=== PATIENT | male | born 1990 | race Caucasian/White ===

== ENCOUNTER 2019-07-23 13:52 | Emergency (ER) | payer MEDICARE, MEDICAID, SELFPAY ==
[2019-07-23 14:04] VITALS: BP 136/88; PULSE 61; RESP 20; TEMP 36.4; O2SAT 100
--- NOTE | 2019-07-23 14:30 | ED.GENADULT ---
HPI - General Adult General Chief complaint: Unspecified Stated complaint: needs dialysis Time Seen by Provider: 07/23/19 14:10 Source: patient Mode of arrival: ambulatory Limitations: no limitations History of Present Illness HPI narrative: The pt is a 29 y/o male who presents to the ED c/o needing dialysis. Pt recently moved here from [place], [place] on 07/21/2019. Pt states that he was recommended to Dr. Quezada. Pt states that his social organization professor recommended he go through the ER. Pt states that he last had his hemodialysis done last week at [facility], and is supposed to receive it Thursday, , and Thursday. Pt states that he was going to go to [facility] today, but they were closed. 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 Pt reports decreased urination that has been improved with Torsemide, but denies CP, SOB, N/V, fever, chills, palpitations, and confusion. 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 He notes that he takes Coreg for HTN. complaint: Needing Dialysis Onset (ago): unknown Associated symptoms: other (Decreased urination) Treatments prior to arrival: none Related Data Allergies Allergy/AdvReac Type Severity Reaction Status Date / Time No Known Allergies Allergy Unverified 04/29/11 02:56 Review of Systems Review of Systems: All systems reviewed & are unremarkable except as noted in HPI and below Constitutional: Constitutional: Denies chills and Denies fever(s) Cardiovascular: Cardiovascular: Denies chest pain and Denies palpitations Respiratory: Respiratory: Denies dyspnea Gastrointestinal: Gastrointestinal: Denies nausea and Denies vomiting Genitourinary: Genitourinary: Reports oliguria Neurologic: Denies confusion [facility] Past Medical History Medical History (Updated 07/23/19 @ 15:43 by Roberto Last MD) Ankle fracture, right Depression HTN (hypertension) Kidney failure Bruna syndrome Surgical History Surgical History (Updated 07/23/19 @ 15:15 by Giancarlo Fraser) History of kidney surgery Kidney biopsy History of open heart surgery Repair of a hole in his heart History of open reduction and internal fixation (ORIF) procedure Right ankle S/P dialysis catheter insertion Social History Social History (Updated 07/23/19 @ 15:12 by Giancarlo Fraser) Smoking status: Smoker, status unknown Comments [employer] Employee: Dr. Quezada Exam Narrative: Exam Narrative: GENERAL: Chronically ill-appearing, thin, and in no acute distress. HEAD: Normocephalic, atraumatic. ENT: Mucous membranes moist. CHEST: Clear to auscultation. No respiratory distress. Right Vascath. HEART: Regular rate and rhythm. Normal peripheral pulses. ABDOMEN: Soft, nontender, nondistended, left abdominal peritoneal catheter. EXTREMITIES: Normal range of motion. No edema. RIght hand smaller than left. NEURO: Alert and oriented x3. PSYCH: Normal mood and affect. Course Course Emergency Course: Unsuccessful original blood draw. Patient refusing to have nurse or cat scan technologist attempted repeat blood draw. Discussed that we require full evaluation of his blood work to determine whether patient needs emergent dialysis or not. Patient prefers to leave AGAINST MEDICAL ADVICE as he is frustrated with his situation of not being able to go to [facility] for dialysis or have blood obtained. He realizes that he is risking his life and that he could potentially from a fatal arrhythmia from elevated potassium, he could develop pulmonary edema/congestive heart failure from volume overload, or could suffer permanent disability from his failure to be fully treated/evaluated. Vital Signs Vital signs: Vital Signs Temperature 97.6 F 07/23/19 14:04 Pulse Rate 61 07/23/19 14:04 Respiratory Rate 20 07/23/19 14:04 Blood Pressure 136/88 07/23/19 14:04
--- NOTE | 2019-07-23 15:00 | PC.NURSE ---
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
--- NOTE | 2019-07-23 16:01 | PC.NURSE ---
This Rn went in to attempt to draw blood. Pt states I don't want to be stuck again, I don't understand why I need to have labs drawn. I just need dialysis. I explained we have to draw labs to see where his labs are before we dialyze him. Pt states he just wants to leave. made aware
== END 2019-07-23 15:48 | disposition left against medical advice (07) ==
LOC: ANHED 15:52
PROVIDERS: Emergency Provider Emergency Medicine
DX: I12.0 Hypertensive chronic kidney disease with stage 5 chronic kidney disease or end stage renal disease (principal); N18.6 End stage renal disease; Z99.2 Dependence on renal dialysis; Q79.8 Other congenital malformations of musculoskeletal system
CPT/HCPCS: 99281

== ENCOUNTER → 2019-07-25 12:44 | Outpatient (CLI) | payer MEDICARE, MEDICAID, SELFPAY ==
--- NOTE | ~2019-07-25 | XR_ITS ---
EXAMINATION: XR chest 2V EXAM DATE: 07/25/2019 13:08 INDICATION: TB screening. TECHNIQUE: Frontal and lateral projections of the chest obtained and reviewed. Comparison is made to prior examination from 03/22/2010. FINDINGS: Sternotomy wires. Right-sided Mcclellan catheter. The lungs are clear. There are no pleural effusions. The cardiomediastinal silhouette is within normal limits. There is no pneumothorax susp ected. The bones and soft tissues are unremarkable. IMPRESSION: No acute cardiopulmonary findings. Reviewed, dictated and finalized at location B.
== END ==
DX: Z11.1 Encounter for screening for respiratory tuberculosis (principal)
CPT/HCPCS: 71046

== ENCOUNTER → 2019-11-22 13:28 | Outpatient (CLI) | payer MEDICARE, MEDICAID, SELFPAY ==
--- NOTE | ~2019-11-22 | CT_ITS ---
EXAMINATION: CT abdomen pelvis wo con DATE: 11/22/2019 14:03 INDICATION: Abdominal pain and suprapubic swelling TECHNIQUE: Computed tomography (CT) of the abdomen and pelvis was performed without intravenous contr ast. The dose-length product (DLP) was 168.59 mGy-cm. Automated exposure control and iterative recons truction technique were employed. COMPARISON: None FINDINGS: The lung bases are clear. The heart size is normal. The liver, spleen, pancreas, gallbladde r, and adrenal glands are normal. Cysts of the kidneys measure up to 1.6 cm on the right. There are e mbolization coils in the right kidney. No pathologically enlarged abdominal or pelvic lymph nodes are identified. There is no free intraperitoneal gas or evidence of bowel obstruction. A peritoneal dial ysis catheter enters the left abdominal wall and coils in the pelvis. There is a small amount of pelv ic fluid adjacent to the catheter. No fluid tracks into the abdominal wall. No suprapubic swelling is identified. IMPRESSION: 1. No CT correlate for the patient's symptoms. Reviewed, dictated and finalized at location B.
== END ==
PROVIDERS: Visit Provider Internal Medicine Nephrology
DX: R10.9 Unspecified abdominal pain (principal)
CPT/HCPCS: 74176

== ENCOUNTER → 2021-03-27 16:25 | Outpatient (CLI) | payer MEDICARE, MEDICAID, SELFPAY ==
--- NOTE | ~2021-03-27 | XR_ITS ---
EXAMINATION: XR abdomen/kub 1V DATE: 03/27/2021 16:48 INDICATION: Poor renal function. Assess for peritoneal dialysis catheter placement and for stool lexi en. TECHNIQUE: A supine view of the abdomen on 2 radiographs was obtained. COMPARISON: CT dated 11/22/2019 FINDINGS: Left lower quadrant peritoneal dialysis catheter which extends caudally with distal loop coiled in th e central pelvis. Right renal embolization coils in the right upper quadrant. No dilated loops of gas -filled bowel to suggest obstruction. Small amount of scattered colonic gas and likely fluid along wi th small amount of distal colonic stool. Lung bases are clear. Bones are unremarkable. IMPRESSION: 1. Peritoneal dialysis catheter with tip coiled in the central pelvis. 2. Nonobstructive bowel gas pattern with small amount of distal colonic stool. Reviewed, dictated and finalized at location B. NEL SUPERVISOR
== END ==
PROVIDERS: Visit Provider Internal Medicine Nephrology
DX: T82.49XA Other complication of vascular dialysis catheter, initial encounter (principal)
CPT/HCPCS: 74018

== ENCOUNTER → 2021-06-29 08:51 | Outpatient (CLI) | payer MEDICARE, MEDICAID, SELFPAY ==
--- NOTE | ~2021-06-29 | XR_ITS ---
EXAMINATION: XR abdomen/kub 1V DATE: 06/29/2021 09:31 INDICATION: End-stage renal disease. TECHNIQUE: A supine view of the abdomen on 2 radiographs was obtained. COMPARISON: Abdomen radiographs 03/27/2021, CT abdomen and pelvis 11/22/2019 FINDINGS: There are no dilated loops of bowel. There are embolization coils in right kidney. There is a peritoneal dialysis catheter in expected position. Median sternotomy wires are noted. There is a c atheter tip in right atrium. IMPRESSION: 1. Normal bowel gas pattern. Reviewed, dictated and finalized at location A. ERTY CLAIMS ADJUSTER
== END ==
PROVIDERS: Visit Provider Internal Medicine Nephrology
DX: N18.6 End stage renal disease (principal)
CPT/HCPCS: 74018

== ENCOUNTER 2022-10-08 11:47 | Outpatient (CLI) | payer MEDICARE, MEDICAID, SELFPAY ==
--- NOTE | ~2022-10-08 | XR_ITS ---
Left ankle Technique: AP and lateral views were obtained. Clinical History: Pain Findings: No acute fracture or dislocation is seen. Osseous alignment is anatomic. Ankle mortise and other visualized joint spaces are preserved. Soft tissues are otherwise unremarkable. Impression: Unremarkable left ankle. Reviewed, dictated and finalized at location . Impression: Unremarkable left ankle.
--- NOTE | ~2022-10-08 | US_ITS ---
EXAMINATION: US venous doppler [facility] DATE: 10/08/2022 12:29 INDICATION: Left lower limb pain TECHNIQUE: Grayscale ultrasound images without and with compression and Doppler ultrasound images of the left lower extremity veins were obtained. COMPARISON: None. FINDINGS: The visualized portions of left common femoral vein, profunda (deep) femoral vein, femoral vein, popl iteal vein, peroneal veins, posterior tibial veins, gastrocnemius vein and greater saphenous vein out flow are patent. 3.9 x 2.4 x 1.0 cm anechoic Taylor's cyst at the left popliteal fossa. There is a sec ond more caudal 3 x 3 x 1.2 cm lenticular hypoechoic lesion along the superficial muscular fascia whi ch is without evident internal vascular flow on color Doppler but also without definitive posterior a coustic enhancement and is unclear whether this is a solid or complex cystic lesion. IMPRESSION: 1. No deep venous thrombosis in the left lower limb. 2. 3 x 3 x 1.2 cm lenticular hypoechoic lesion along the inferior margin of a 3.9 x 2.4 x 1.0 cm anec hoic Taylor's cyst. Differential would include synovitis within a loculated component of the Taylor's c yst a separate complex fluid collection including hematoma or abscess in the appropriate clinical set ting or potentially a solid neoplasm such as schwannoma or peripheral nerve sheath tumor. Consider fu rther evaluation with pre and postcontrast MRI. Reviewed, dictated and finalized at location A. IMPRESSION: 1. No deep venous thrombosis in the left lower limb. 2. 3 x 3 x 1.2 cm lenticular hypoechoic lesion along the inferior margin of a 3 .9 x 2.4 x 1.0 cm anechoic Taylor's cyst. Differential would include synovitis w ithin a loculated component of the Taylor's cyst a separate complex fluid collec tion including hematoma or abscess in the appropriate clinical setting or poten tially a solid neoplasm such as schwannoma or peripheral nerve sheath tumor. Co nsider further evaluation with pre and postcontrast MRI.
--- NOTE | ~2022-10-08 | XR_ITS ---
Right foot Technique: AP and lateral views were obtained. Clinical History: Pain Findings: There is a transverse fracture through the midshaft of the fourth proximal phalanx. No othe r fracture or dislocation seen. Joint spaces are preserved without erosive or degenerative change. So ft tissues are unremarkable. Impression: Transverse, minimally displaced fracture of the midshaft of the fourth proximal phalanx. Reviewed, dictated and finalized at location M. Impression: Transverse, minimally displaced fracture of the midshaft of the fourth proximal phalanx.
== END 2022-10-08 11:48 | disposition home or self-care (01) ==
LOC: ANHIMG 11:56
PROVIDERS: PCP Emergency Medicine; Visit Provider Emergency Medicine
DX: M79.662 Pain in left lower leg (principal); I82.409 Acute embolism and thrombosis of unspecified deep veins of unspecified lower extremity; M79.671 Pain in right foot; M25.572 Pain in left ankle and joints of left foot; S92.511A Displaced fracture of proximal phalanx of right lesser toe(s), initial encounter for closed fracture; X58.XXXA Exposure to other specified factors, initial encounter
CPT/HCPCS: 73600; 73620; 93971

== ENCOUNTER 2022-10-13 14:39 | Outpatient (CLI) | payer MEDICARE, MEDICAID, SELFPAY ==
--- NOTE | ~2022-10-13 | MR_ITS ---
MRI of the left femur and left tib-fib CLINICAL HISTORY: Mass TECHNIQUE: Sagittal T1-weighted and STIR images, coronal T1-weighted and STIR images, and axial T1-we ighted, T1 fat-sat, and STIR images were acquired through the right calf. Sagittal T1-weighted and ST IR images, coronal T1-weighted and STIR images, and axial T1-weighted, STIR, T1 fat-sat images were a cquired through the left femur. Following intravenous administration of 10 cc MultiHance gadolinium, T1-weighted fat-sat imaging of the left femur and the left tib-fib was performed in the axial and cor onal planes. COMPARISON: Ultrasound dated 10/08/2022 Left calf findings: Bone marrow signals are unremarkable. No fracture, marrow edema, or osteomyelitis . Joint spaces of the ankle and knee are grossly intact. There is a 2.7 x 1.7 x 9.0 cm roughly ovoid mass at the medial aspect of the proximal calf, probably within the subcutaneous soft tissues and exerting mass effect upon the medial head of the gastrocnemi us muscle. Lesion is T1 hyperintense, heterogeneously hyperintense on T2 fat-sat sequences, and is wi thout significant postcontrast enhancement. There is extensive edematous change of the medial gastrocnemius muscle belly, with minimal edema of t he lateral gastrocnemius muscle belly. Remaining musculature in the calf essentially unremarkable. Th ere is mild diffuse subcutaneous soft tissue edema in the calf. Left femur findings: Bone marrow signals are unremarkable. No fracture, edema, or evidence for osteit is. Joint spaces of the left hip and left knee are grossly intact. No joint effusion evident. There is minimal amorphous edema scattered throughout the thigh musculature, without evidence of foca l tear or mass lesion. Visualized tendons are grossly intact. There is mild subcutaneous soft tissue edema throughout the thigh, without focal fluid collection. No abnormal postcontrast enhancement identified. IMPRESSION: 2.7 x 1.7 x 9.0 cm ovoid mass in the superficial soft tissues at the proximal, medial left calf, as d etailed above. Imaging characteristics are most consistent with hematoma. Extensive edematous change of the medial gastrocnemius muscle, with much more minimal amorphous edema of the lateral gastrocnemius muscle and thigh musculature. Findings could reflect posttraumatic musc le strain/contusion versus other inflammatory/reactive myositis. Correlate clinically. Extensive subcutaneous soft tissue edema, nonspecific. No abscess evident. No osseous or articular abnormality evident. Reviewed, dictated and finalized at location M. IMPRESSION: 2.7 x 1.7 x 9.0 cm ovoid mass in the superficial soft tissues at the proximal, medial left calf, as detailed above. Imaging characteristics are most consisten t with hematoma. Extensive edematous change of the medial gastrocnemius muscle, with much more m inimal amorphous edema of the lateral gastrocnemius muscle and thigh musculatur e. Findings could reflect posttraumatic muscle strain/contusion versus other in flammatory/reactive myositis. Correlate clinically. Extensive subcutaneous soft tissue edema, nonspecific. No abscess evident. No osseous or articular abnormality evident.
== END 2022-10-13 14:40 | disposition home or self-care (01) ==
PROVIDERS: PCP Emergency Medicine; Visit Provider Emergency Medicine
DX: M71.20 Synovial cyst of popliteal space [Baker], unspecified knee (principal)
CPT/HCPCS: 73720; A9577

== ENCOUNTER 2024-02-14 16:31 | Emergency (ER) | payer MEDICARE, MEDICAID, SELFPAY ==
[2024-02-14 16:36] VITALS: BP 144/85; PULSE 68; RESP 20; TEMP 37.5; O2SAT 99
--- NOTE | 2024-02-14 17:50 | ED_ITS ---
HPI - Wound/Laceration General Chief Complaint: Wound/Laceration Stated Complaint: Left Side Facial Wound/Swelling Source: patient, RN notes reviewed and old records reviewed Mode of arrival: ambulatory Limitations: no limitations History of Present Illness HPI narrative: Patient presents with complaints of open pustule to the left side of the face and associated swelling. He denies any injury or trauma. He reports that symptoms have been present for 3 days, worsening. He denies any fever, chills, sweats. No other concerns today Related Data Home Medications Medication Instructions Recorded Confirmed acetaminophen 500 mg tablet 500 mg PO Q6H PRN Pain 10/16/22 02/14/24 calcitriol 0.5 mcg capsule 0.5 mcg PO 3XW 10/16/22 02/14/24 carvedilol 25 mg tablet 25 mg PO BID 10/16/22 02/14/24 cholecalciferol (vitamin D3) 50 50 mcg PO DAILY 10/16/22 02/14/24 mcg (2,000 unit) capsule epoetin beta, methoxy peg 100 100 mcg subcut .2 times a month 10/16/22 02/14/24 mcg/0.3 mL injection syringe (Mircera) heparin (porcine) 1,000 unit/mL 600 unit IV .every dialysis 10/16/22 02/14/24 injection solution heparin (porcine) 5,000 unit/mL 1,600 unit IV .every dialysis 10/16/22 02/14/24 injection solution iron sucrose 50 mg iron/2.5 mL 50 mg IV WEEKLY 10/16/22 02/14/24 intravenous solution (Venofer) lactulose 10 gram/15 mL oral 10 g PO DAILY 10/16/22 02/14/24 solution melatonin 5 mg capsule 5 mg PO QHS 10/16/22 02/14/24 minoxidil 2.5 mg tablet 2.5 mg PO BID 10/16/22 02/14/24 mirtazapine 30 mg tablet 30 mg PO QHS 10/16/22 02/14/24 ondansetron HCl 4 mg tablet 4 mg PO Q4H PRN Nausea 10/16/22 02/14/24 polyethylene glycol 3350 17 17 g PO DAILY PRN Nausea 10/16/22 02/14/24 gram/dose oral powder sennosides 8.6 mg-docusate sodium 1 tab-cap PO DAILY 10/16/22 02/14/24 50 mg tablet (Senexon-S) sertraline 100 mg tablet 100 mg PO DAILY 10/16/22 02/14/24 sodium zirconium cyclosilicate 10 10 g PO DAILY 10/16/22 02/14/24 gram oral powder packet (Lokelma) sucroferric oxyhydroxide 500 mg 1,000 mg PO TID 10/16/22 02/14/24 chewable tablet (Velphoro) trazodone 50 mg tablet 50 mg PO HS 02/14/24 02/14/24 Allergies Allergy/AdvReac Type Severity Reaction Status Date / Time No Known Allergies Allergy Verified 02/14/24 17:07 Review of Systems Review of Systems: All systems reviewed & are unremarkable except as noted in HPI and below Constitutional: Constitutional: Reports no additional constitutional complaint s ENT: Reports system reviewed and no additional complaints, except as documented Cardiovascular: Cardiovascular: Reports no additional cardiovascular complaints Respiratory: Respiratory: Reports no additional respiratory complaints Gastrointestinal: Gastrointestinal: Reports no additional gastrointestinal complaints Integumentary/Breasts: Skin/Breast: Reports system reviewed and no additional complaints, except as docu and Reports as per HPI [facility] Past Medical History Medical History (Updated 02/15/24 @ 00:01 by Milagros Peterson) Ankle fracture, right Depression HTN (hypertension) Kidney failure [place] syndrome Surgical History Surgical History History of hand surgery (~1990) History of kidney surgery Kidney biopsy History of open heart surgery Repair of a hole in his heart History of open reduction and internal fixation (ORIF) procedure Right ankle S/P dialysis catheter insertion Family History Family History Father No problems noted. Mother No problems noted. Social History Social History Social History: 1 CUP OF CAFFEINE PER DAY Smoking packs per day: 1 Smoking cigarettes per day: 20.0 Years smoked: 10 Smoking pack-years: 10.00 Smoking status: Current every day smoker Alcohol intake: current Alcohol use details: Drinks once monthly Substance use: current Substance use type: marijuana Other substance usage details: use marijuana three times per week Lack of Transportation: No Lack of Food: Never True Current Housing: I Have Housing Concerned About Future Housing: No Difficulty Paying Gas/Electric Bills: No Difficulty Paying for Meds: No Currently Unemployed: No Education: High School Diploma/GED Difficulty w/ Childcare or Family Care: No Comments At the time of my signature, I reviewed and agree with the nursing past medical, surgical, social, and family history. There is no relevant family history pertinent to the patient complaint. Exam Const: General: cooperative, no acute distress, alert and awake Orientation/consciousness: oriented to person, oriented to place and oriented to time HENMT: Head: normal to inspection Resp: Effort & Inspection: normal respiratory effort and able to speak in complete sentences Auscultation: clear to auscultation bilaterally, no crackles, no rales, no rhonchi and no wheezes Cardio: Palpation: normal PMI Rate: regular rate Rhythm: regular rhythm Heart sounds: S1 normal heart sound present and S2 normal heart sound present Skin: Full body images: 1. Pustule with central opening, no active drainage. Approximately 1 cm diameter with some associated mild facial swelling Neuro: General: oriented to person, oriented to place and oriented to time Cranial nerves: Yes CN's II-XII intact bilaterally Psych: Appearance: grossly normal Thought process: Normal thought process present Insight: Good insight present (Psych) Judgement: Good judgement present (Psych) Course Course Level of Care: Express Care Visit Vital Signs Vital signs: Vital Signs Temperature 99.5 F 02/14/24 16:36 Pulse Rate 68 02/14/24 16:36 Respiratory Rate 20 02/14/24 16:36 Blood Pressure 144/85 H 02/14/24 16:36 Pulse Oximetry 99 02/14/24 16:36 Oxygen Delivery Room Air 02/14/24 16:36 Temperature 99.5 F 02/14/24 16:36 Pulse Rate 68 02/14/24 16:36 Respiratory Rate 20 02/14/24 16:36 Blood Pressure 144/85 H 02/14/24 16:36 Pulse Oximetry 99 02/14/24 16:36 Oxygen Delivery Room Air 02/14/24 16:36 Reviewed MDM - Wound/Laceration MDM Narrative Medical decision making narrative: Dialysis patient with have sessile left side of the face. No ocular involvement. Nontoxic appearing. Stable for discharge home on p.o. antibiotic. Follow with primary care provider. Emergency department for new or worse symptoms. Discharge instructions reviewed with patient, as well as provided in writing per nursing staff. The instructions also include specific and strict return/GO TO THE ER as well as f/u information. All questions have been answered, and the patient deny any further questions with discharge and discharge plan. Some parts of this dictation were generated by voice recognition software and may contain typographical and/or grammatical inaccuracies. Differential Diagnosis Differential diagnosis: Likely abscess and abrasion Medical Records Attestation: I reviewed the patient's medical records. Discharge Plan Discharge Clinical Impression: Abscess Patient Disposition: Home, Self-Care Condition: Stable Instructions: Antibiotic Form, Abscess (ED) Additional Instructions: Take all medications as prescribed. Warm soaks 3-4 times daily. Emergency department for new or worse symptoms, follow-up with primary care provider Patient Language: [place] Prescriptions: New clindamycin HCl 300 mg capsule 300 mg PO TID Qty: 30 0RF clindamycin HCl 300 mg capsule 300 mg PO TID Qty: 30 0RF No Action trazodone 50 mg tablet 50 mg PO HS carvedilol 25 mg tablet 25 mg PO BID Rx Instructions: must administer with a meal/food cholecalciferol (vitamin D3) 50 mcg (2,000 unit) capsule 50 mcg PO DAILY lactulose 10 gram/15 mL solution 10 g PO DAILY sertraline 100 mg tablet 100 mg PO DAILY Velphoro 500 mg tablet,chewable 1,000 mg PO TID acetaminophen 500 mg tablet 500 mg PO Q6H PRN (Reason: Pain) ondansetron HCl 4 mg tablet 4 mg PO Q4H PRN (Reason: Nausea) polyethylene glycol 3350 17 gram/dose powder 17 g PO DAILY PRN (Reason: Nausea) calcitriol 0.5 mcg capsule 0.5 mcg PO 3XW Rx Instructions: administer after dialysis on dialysis days Lokelma 10 gram powder in packet 10 g PO DAILY melatonin 5 mg capsule 5 mg PO QHS minoxidil 2.5 mg tablet 2.5 mg PO BID mirtazapine 30 mg tablet 30 mg PO QHS sennosides-docusate sodium [Senexon-S] 8.6-50 mg tablet 1 tab-cap PO DAILY Venofer 50 mg iron/2.5 mL solution 50 mg IV WEEKLY Rx Instructions: administer over 2-5 mins Mircera 100 mcg/0.3 mL syringe 100 mcg subcut .2 times a month heparin (porcine) 5,000 unit/mL solution 1,600 unit IV .every dialysis heparin (porcine) 1,000 unit/mL solution 600 unit IV .every dialysis Follow-up/Referrals: Galen Hunter MD [Primary Care Provider] -
== END 2024-02-14 18:25 | disposition home or self-care (01) ==
PROVIDERS: Emergency Provider Nurse Practitioner Family; PCP Emergency Medicine
DX: L02.01 Cutaneous abscess of face (principal); F17.210 Nicotine dependence, cigarettes, uncomplicated; F12.90 Cannabis use, unspecified, uncomplicated; I10 Essential (primary) hypertension; F32.A Depression, unspecified
CPT/HCPCS: 99213; G0463

== ENCOUNTER 2024-06-30 00:23 | Emergency (ER) | payer MEDICARE, MEDICAID, SELFPAY ==
--- NOTE | ~2024-06-30 | XR_ITS ---
Clinical Indication: Shortness of breath PA and lateral views of the chest: Comparison: 07/25/2019 Findings: The lungs are clear, without evidence of focal consolidation or pleural effusion. Cardiome diastinal silhouette is enlarged, status post median sternotomy. Bones and soft tissues are unremarka ble. Impression: Clear lungs. Cardiomegaly, status post median sternotomy. Correlate with clinical history. Reviewed, dictated and finalized at location M. Impression: Clear lungs. Cardiomegaly, status post median sternotomy. Correlate with clinical history.
[2024-06-30 00:25] VITALS: BP 190/107; PULSE 64; RESP 16; TEMP 36.6; O2SAT 98
--- NOTE | 2024-06-30 00:25 | ECG_ITS ---
Test Date: 2024-06-30 00:30:28 Measurements Intervals [place] Rate: 59 P: 44 FL: 111 QRS: 53 QRSD: 116 T: 111 QT: 420 QTc: 416 Interpretive Statements SINUS BRADYCARDIA WITH SHORT FL INTERVAL INDETERMINATE AXIS INCOMPLETE RIGHT BUNDLE BRANCH BLOCK [90+ ms QRS DURATION, TERMINAL R IN V1/V2, 40+ ms S IN I/aVL/V4/V5/V6] LEFT VENTRICULAR HYPERTROPHY AND ST-T CHANGE [VOLTAGE CRITERIA PLUS ST/T ABNORMALITY] No previous ECG available for comparison Electronically Signed On 07-01-2024 16:33:32 CDT by Patricia Chaney M.D.
--- OUTSIDE RECORDS SUMMARY | 2024-06-30 00:26 | XMS_ITS | Encounter Summary ---
Author Organization [facility] Address [address] [place] [address] Care Team Providers Care Immigration Attorney Name Role Phone Bernadette Robertson MD Primary Care Provider [phone] Bernadette Robertson MD Primary Care Provider [phone] Encounter Details Date Type Department Care Team (Late st Contact Info) Description 03/01/2021 Telephone [facility] [address] [place] [address] Cr Titus MD [address] [phone] Social History Tobacco Use Types Packs/Day Years Used Date Smoking Tobacco: Former Cigarettes 0.5 10 0 01/13/2011 - 01/13/2021 Smokeless Tobacco: Never Alcohol Use Standard Drinks/Week Comments Not Currently 0 (1 standard drink = 0.6 oz pur e alcohol) PHQ-2 Answer Date Recorded PHQ2 TOTAL SCORE 0 02/07/2021 Sex and Gender Information Value Date Recorded Sex Assigned at Not on file Gender Identity Not on file Sexual Orientation Not on file documented as of this encounter Functional Status Functional Status Response Date of Assess ment Is person deaf or have serious hearing difficult y? No 02/25/2021 Is person blind or have serious difficulty seein g? No 02/25/2021 Does person have serious dif ficulty walking/climbing stairs? No 02/25/2021 Does person have difficulty dressing/bathing? No 02/25/2021 Does person have difficulty doing errands alone? No 02/25/2021 Cognitive Status Response Date of Assessm ent Does person have difficulty concentrating/remembering/making decisions? No 02/25/2021 documented as of this encounter Plan of Treatment Not on file documented as of this encounter Visit Diagnoses Not on filedocumented in this encounter Care Teams Immigration Attorney Relationship Specialty Start Date End Date Bernadette Robertson MD [address] [place] [place] [address] PCP - General 07/02/20 03/04/21 Bernadette Robertson MD [address] [place] [address] PCP - General 11/07/21 documented as of this encounter
--- OUTSIDE RECORDS SUMMARY | 2024-06-30 00:26 | XMS_ITS | Encounter Summary ---
Author Organization [facility] Address [address] [place] [address] Care Team Providers Care Customer Retention Representative Name Role Phone Bernadette Robertson MD Primary Care Provider [phone] Bernadette Robertson MD Primary Care Provider [phone] Encounter Details Date Type Department Care Team (Late st Contact Info) Description 02/28/2021 Telephone [facility] [address] [place] [address] Cr Titus MD [address] [phone] Social History Tobacco Use Types Packs/Day Years [...] on filedocumented in this encounter Care Teams Customer Retention Representative Relationship Specialty Start Date End Date Bernadette Robertson MD [address] [facility] [place] [address] PCP - General 07/02/20 03/04/21 Bernadette Robertson MD [address] [facility] [place] [address] PCP - General 11/07/21 documented as of this encounter
--- OUTSIDE RECORDS SUMMARY | 2024-06-30 00:26 | XMS_ITS ---
Author Organization [facility] [email or web address] Address [address] [place] [address] Care Team Providers Care Studio Coordinator Name Role Phone Galen Hunter MD Primary Care Provider Unavail Tash Saucedo Unavailable [phone] Allergies No Known Allergies Medications Medication SIG (Take, Route, Frequency, Duration) Notes Start Date End Date Status Sertraline HCl 100 MG 1 tablet Oral Once a day for 90 days Active traZODone HCl 50 MG 1 tablet at bedtime Oral at bedtime for 90 days Active Mirtazapine 45 MG 1 tablet at bedtime Oral Once a day for 90 days Active Lisinopril 40 MG Oral 07/10/2023 No t-Taking traZODone HCl 50 MG 1 tablet at bedtime Oral at bedtime for 90 days Active Minoxidil 2.5 mg Oral 07/10/2023 Ac tive Lisinopril 20 MG Oral 07/10/2023 Ac tive Velphoro 500 mg Oral 07/10/2023 Act jammie Sevelamer Carbonate 2.4 gram Oral *Pick strength-form from [facility] for eRX* 07/10/2023 Active Mirtazapine 45 MG TAKE 1 TABLET BY MOUTH AT BEDTIME FOR 90 DAYS for 90 Active Lactulose 10 GM/15ML Oral 07/10/2023 Active Famotidine 20 MG Oral 07/10/2023 Ac tive Carvedilol 25 MG Oral 07/10/2023 Ac tive amLODIPine Besylate 10 MG Oral 07/10/2023 Active Auryxia 210 mg iron Oral *Pick strength-form from [facility] for eRX* 07/10/2023 Active LOKELMA 10 GRAM ORAL POWDER PACKET *Reorder from [facility] for eRx and Interaction Alerts* 07/10/2023 Active Ondansetron HCl 4 MG Oral 07/10/2023 Active Social History Tobacco Use: Social History Observation Description Date Details (start date - stop date) Former Smoker NA - NA Sex Assigned At : Social History Observation Description Sex Assigned At Male Tobacco Control (Standard) Question Answer Notes Tobacco use: Former smoker Problems Problem Type SNOMED Code ICD Code Onset Dates Problem Status W/U Status Risk Notes Problem 13646648 Elevated blood pressure reading (R03.0) Active confirmed Vital Signs Blood pressure systolic 152 mm Hg 04/19/20 24 Blood pressure diastolic 84 mm Hg 024 Heart Rate 62 /min 04/19/2024 Height 64.00 in 04/19/2024 Weight 118.2 lbs 04/19/2024 BMI 20.29 kg/m2 04/19/2024 Height-cm 162.56 cm 04/19/2024 Weight-kg 53.61 kg 04/19/2024 Encounters Encounter Location Date Provider Diagnosis [facility] [address] [facility] [address] [place] [address] 04/19/2024 Tash Saucedo Generalized anxiety disorder F41.1 ; Major depressive disorder, recurrent, mild F33.0 ; Primary insomnia F51.01 ; Cannabis dependence, uncomplicated F12.20 ; Other skilled nursing (current) drug therapy Z79.899 and Elevated blood pressure reading R03.0 Assessments Encounter Date Diagnosis (ICD Code) Assessment Notes Treatment Notes Treatment Clinical Notes Section Notes 04/19/2024 Generalized anxiety disorder (ICD-10 - F41.1) Generalized Anxiety Disorder: Care Instructions material was published, Learning About Anxiety Disorders material was published 1. Mild recurrent major depression - Remeron 45 mg at night Sertraline 100 mg daily obtain labs recently done therapy refer to PAT patient would like to have kidney transplant in future- need 6 months therapy to qualify SSRI/SNRI side effects discussed including but not limited to, gastric upset, nausea, vomiting, diarrhea and/or constipation, weight changes, sexual side effects including loss of libido, increased suicidal thoughts/behavi ors in children and young adults, and serotonin syndrome. Prescription Monitoring Report reviewed educated on all medications, benefits, side effects and risk, and educated on depression, anxiety, and mood d/o and educated on compliance of medications, metabolic and movement d/o education appointment's, continue therapy discussion with patient about course of treatmentand patient instructions. education on serotonin syndrome 2. Generalized anxiety disorder -hx PCP prescribes Xanax 3. Primary insomnia - Melatonin 10 mg OTC- PRN educated on Melatonin Trazodone 50 mg at bedtime - educated on rx 04/19/2024 Major depressive disorder, recurrent, mild (ICD-10 - F33.0) Learning About Depression Screening material was published, Preventing Depression From Coming Back: Care Instructions material was published, Learning About Depression material was published, Seasonal Affective Disorder: Care Instructions material was published, Depression Treatment: Care Instructions material was published 1. Mild recurrent major depression - Remeron 45 mg at night Sertraline 100 mg daily obtain labs recently done therapy refer to PAT patient would like to have kidney transplant in future- need 6 months therapy to qualify SSRI/SNRI side effects discussed including but not limited to, gastric upset, nausea, vomiting, diarrhea and/or constipation, weight changes, sexual side effects including loss of libido, increased suicidal thoughts/behavi ors in children and young adults, and serotonin syndrome. Prescription Monitoring Report reviewed educated on all medications, benefits, side effects and risk, and educated on depression, anxiety, and mood d/o and educated on compliance of medications, metabolic and movement d/o education appointment's, continue therapy discussion with patient about course of treatmentand patient instructions. education on serotonin syndrome 2. Generalized anxiety disorder -hx PCP prescribes Xanax 3. Primary insomnia - Melatonin 10 mg OTC- PRN educated on Melatonin Trazodone 50 mg at bedtime - educated on rx 04/19/2024 Primary insomnia (ICD-10 - F51.01) Insomnia: Care Instructions material was published, Learning About Sleeping Well material was published 1. Mild recurrent major depression - Remeron 45 mg at night Sertraline 100 mg daily obtain labs recently done therapy refer to PAT patient would like to have kidney transplant in future- need 6 months therapy to qualify SSRI/SNRI side effects discussed including but not limited to, gastric upset, nausea, vomiting, diarrhea and/or constipation, weight changes, sexual side effects including loss of libido, increased suicidal thoughts/behavi ors in children and young adults, and serotonin syndrome. Prescription Monitoring Report reviewed educated on all medications, benefits, side effects and risk, and educated on depression, anxiety, and mood d/o and educated on compliance of medications, metabolic and movement d/o education appointment's, continue therapy discussion with patient about course of treatmentand patient instructions. education on serotonin syndrome 2. Generalized anxiety disorder -hx PCP prescribes Xanax 3. Primary insomnia - Melatonin 10 mg OTC- PRN educated on Melatonin Trazodone 50 mg at bedtime - educated on rx 04/19/2024 Cannabis dependence, uncomplicated (ICD-10 - F12.20) Learning About Cannabis Use Disorder material was published, Learning About Substance Use Disorder material was published, Substance Use Disorder: Care Instructions material was published, Marijuana Use: Care Instructions material was published, Codependency: Care Instructions material was published 1. Mild recurrent major depression - Remeron 45 mg at night Sertraline 100 mg daily obtain labs recently done therapy refer to PAT patient would like to have kidney transplant in future- need 6 months therapy to qualify SSRI/SNRI side effects discussed including but not limited to, gastric upset, nausea, vomiting, diarrhea and/or constipation, weight changes, sexual side effects including loss of libido, increased suicidal thoughts/behavi ors in children and young adults, and serotonin syndrome. Prescription Monitoring Report reviewed educated on all medications, benefits, side effects and risk, and educated on depression, anxiety, and mood d/o and educated on compliance of medications, metabolic and movement d/o education appointment's, continue therapy discussion with patient about course of treatmentand patient instructions. education on serotonin syndrome 2. Generalized anxiety disorder -hx PCP prescribes Xanax 3. Primary insomnia - Melatonin 10 mg OTC- PRN educated on Melatonin Trazodone 50 mg at bedtime - educated on rx 04/19/2024 Other skilled nursing (current) drug therapy (ICD-10 - Z79.899) Medication Refill: Care Instructions material was published 1. Mild recurrent major depression - Remeron 45 mg at night Sertraline 100 mg daily obtain labs recently done therapy refer to PAT patient would like to have kidney transplant in future- need 6 months therapy to qualify SSRI/SNRI side effects discussed including but not limited to, gastric upset, nausea, vomiting, diarrhea and/or constipation, weight changes, sexual side effects including loss of libido, increased suicidal thoughts/behavi ors in children and young adults, and serotonin syndrome. Prescription Monitoring Report reviewed educated on all medications, benefits, side effects and risk, and educated on depression, anxiety, and mood d/o and educated on compliance of medications, metabolic and movement d/o education appointment's, continue therapy discussion with patient about course of treatmentand patient instructions. education on serotonin syndrome 2. Generalized anxiety disorder -hx PCP prescribes Xanax 3. Primary insomnia - Melatonin 10 mg OTC- PRN educated on Melatonin Trazodone 50 mg at bedtime - educated on rx 04/19/2024 Elevated blood pressure reading (ICD-10 - R03.0) 1. Mild recurrent major depression - Remeron 45 mg at night Sertraline 100 mg daily obtain labs recently done therapy refer to PAT patient would like to have kidney transplant in future- need 6 months therapy to qualify SSRI/SNRI side effects discussed including but not limited to, gastric upset, nausea, vomiting, diarrhea and/or constipation, weight changes, sexual side effects including loss of libido, increased suicidal thoughts/behavi ors in children and young adults, and serotonin syndrome. Prescription Monitoring Report reviewed educated on all medications, benefits, side effects and risk, and educated on depression, anxiety, and mood d/o and educated on compliance of medications, metabolic and movement d/o education appointment's, continue therapy discussion with patient about course of treatmentand patient instructions. education on serotonin syndrome 2. Generalized anxiety disorder -hx PCP prescribes Xanax 3. Primary insomnia - Melatonin 10 mg OTC- PRN educated on Melatonin Trazodone 50 mg at bedtime - educated on rx Plan Of Treatment Medication Medication Name Sig Start Date Stop Date Notes Sertraline HCl 100 MG 1 tablet Oral Once a day for 90 days traZODone HCl 50 MG 1 tablet at bedtime Oral at bedtime for 90 days Mirtazapine 45 MG 1 tablet at bedtime Oral Once a day for 90 days Treatment Notes Assessment Notes Generalized anxiety disorder Generalized Anxiety Disorder: Care Instructions material was published, Learning About Anxiety Disorders material was published Major depressive disorder, recurrent, mi ld Learning About Depression Screening material was published, Preventing Depression From Coming Back: Care Instructions material was published, Learning About Depression material was published, Seasonal Affective Disorder: Care Instructions material was published, Depression Treatment: Care Instructions material was published Primary insomnia Insomnia: Care Instr uctions material was published, Learning About Sleeping Well material was published Cannabis dependence, uncomplicated Learn ing About Cannabis Use Disorder material was published, Learning About Substance Use Disorder material was published, Substance Use Disorder: Care Instructions material was published, Marijuana Use: Care Instructions material was published, Codependency: Care Instructions material was published Other skilled nursing (current) drug therapy M edication Refill: Care Instructions material was published Next Appt Details Follow Up: 3 Months, Reason: f/u rx Provider Name:Tash Sheryl , 07/11/2024 04:00:00 PM, [address], [facility] [address], [place], [address], Progress Notes * GOLDEN KIMOB:1990 (33 yo M)Acc No.[id number]:04/19/2024 Patient: CHANTEL BEE Provider: MATTHEW REYES :1990 A ge:33 Y S ex:Male Date:04/19/2024 Address:[address] [place] [address] Pcp:Galen Hunter MD Subjective: * Chief Complaints: * * HPI: D epression Screening: SUNNY-7 (2018 Edition) F eeling nervous, anxious, or on edge?Not at all, N ot being able to stop or control worrying N ot at all, W orrying too much about different things N ot at all, T rouble relaxing S everal days, B eing so restless that it is hard to sit still S everal days, B ecoming easily annoyed or irritable?Several days, F eeling afraid as if something awful might happen N ot at all, T otal SUNNY-7 Score 3 , I f you checked any problems, how difficult have they made it for you to do your work, take care of things at home, or get along with other people? S omewhat difficult,?Interpretation of Total ( 0 to 4) No Anxiety. D epression screening: PHQ-9 L ittle interest or pleasure in doing things S everal days, F eeling down, depressed, or hopeless S everal days, T rouble falling or staying asleep, or sleeping too much S everal days, F eeling tired or having little energy S everal days, P oor appetite or overeating S everal days, F eeling bad about yourself or that you are a failure, or have let yourself or your family down N ot at all, T rouble concentrating on things, such as reading the newspaper or watching television N ot at all, M oving or speaking so slowly that other people could have noticed; or the opposite, being so fidgety or restless that you have been moving around a lot more than usual N ot at all, T houghts that you would be better off or of hurting yourself in some way N ot at all, T otal Score 5, I nterpretation M ild Depression. I ntervention D epression Screening Findings?Positve, F ollow-Up for Depression M ental health treatment assessment, Patient follow-up to return when and if necessary, S uicide Risk Assessment Performed ,?Additional Evaluation for Depression P sychiatric interview and evaluation, N malik of the standardized tool used for adult depression screening: [facility] (PHQ-9).? H istory of Presenting Problem: :Follow up depression, anxiety, sleep chronic recurrent since last visit, report alright, I need psychiatric care for 6 months to be on transplant list and be re-evualated for kidney at [facility] and I failed a heart test once 2 year, ago and depression and anxiety been good I am not that depressed I have struggle with sleep I was sleeping well for a while and now I have nights I look forward bed and nice sleep envirnoment and last week been struggle to fall asleep and I am tired and when in bed I have hard time fall asleep and not over thinking, some of it hard to get comfortable, and I sleep good when I fall asleep and I sleep good days after diaylsis and do not need anything to help me sleep, I still struggle to sleep at diaylsis, and bright lights and noise there, currently no sad or down no hopeless or helpless, sometimes I feel sad not all the time and all situational, I lost contact with all friends with kidney thing over the years, I am little anxious and restless and fidgety, appetite good I am hungery and eat 2 meals, snacks, weight pretty good I am above weight now 120, no SI/HI, no plans or intent no passive thoughts, medications all doing good and combinations no s/e, B/P rx changed recently and helps, I take all rx at night to help me wind down and no psychosis no robert, and concentration and focus good as long as I slept and motivation and interest good, and energy good, and I have not got into therapy yet and kidney transplant require 6 months therapy to qualify I am willing to see a therapist, when kidney failure happen I fought not to and be healthy, more grateful and second change being alive. mom present plan to get on transplant list at [facility] I have a referral for kidney transplant list [place] [facility] and need to be in therapy no psychosis, no robert, no SI/HI dialysis currently three times a week left arm denies SI/HI no plans or intent no thoughts harm to self or others, Past attempts x 2 2011 OD, 2015, OD, FH none, psychiatric hospital none, no weapons in home ETOH rare STOPPED 2 years and 5 months ago SMOKING Quit in December 2020 LABS recently DRUGS cannabis Edibles - medical card 02/01/23 received caffeine non caffiene soda- and coffee - [facility]-stopped ASRS =36 Psychosis Reported by nahed sahu.Notes: hx auditory hallucinations may be induce by cannabis and will monitor - none present Suicide AssessmentReported by nahed sahu.Spectrum: # 2 of suicidal attempts; family history of suicide (0); previous hospitalization for psychiatric condition (0)Notes:denies SI/HI no plans or intent no thoughts harm to self or others, Past attempts x 2 2011 OD, 2015, OD, FH none, psychiatric hospital none, no weapons in home no self cutting or self harm RX HX Sertraline, Xanax, Remeron. * ROS: Nahed sahu reports d ifficulty hearing. He reports no shortness of breath when walking (steps) b ut reports no chest pain, occasional palpitations, and no known heart murmur; p ort left arm- dialysis. He reports no GERD no abdominal pain, no nausea, no vomiting, no constipation, normal appetite, and no diarrhea; d ialysis. He reports d ifficulty urinating; d ialysis produce minimal urine report less amount urine and reported small amount- kidney failure, may urinate 1x day. H e reports no muscle aches, no muscle weakness, no arthralgias/joint pain, no back pain, no swelling in the extremities, no neck pain, and no difficulty walking; hx cyst behind rt knee S kin:: t attoo rt forearm . He reports no loss of consciousness, no weakness, no numbness, no seizures, no dizziness, no migraines, no headaches, no tremor, no gait dysfunction, and no paralysis; h x migraines. He reports s leep disturbances, restless sleep, and mild anxiety b ut reports mild depression, no alcohol abuse, no hallucinations, no suicidal thoughts, no mood swings, no memory loss, and no agitation. H e reports f atigue. He reports no fever, no significant weight gain, and no significant weight loss. He reports no cough and no shortness of breath. * Medical History: P roblems: Cannabis dependence, Generalized anxiety disorder, Long-term drug therapy, Mild recurrent major depression, Primary insomnia, Severe recurrent major depression, Weight loss, ,. * Social History: T obacco Use: T obacco Control (Standard) T obacco use: F ormer smoker. M igrated Social History: M igrated Social History: Alcohol Intake: None 06/30/2022,Tobacco Years: Former smoker 06/05/2021,Smoking Status: 10 04/10/2023. D rug/Alcohol: D o you smoke marijuana?: Admits. Do you drink alcohol?: No. M iscellaneous: A dvance Care Planning A re you your own decision-maker Y es, D o you have Power of Carbon Capture Power Plant Engineer for Health or Medical? Y es, D o you have a power of graphic editor for health? Y es, D o you have power of graphic editor for Medical ? Y es, I f yes, then please bring the POA paperwork so that we can upload it. Y es. * Medications: T aking Ondansetron HCl 4 MG Tablet Oral , Taking LOKELMA 10 GRAM ORAL POWDER PACKET , Notes to Pharmacist: *Reorder from [facility] for eRx and Interaction Alerts*, Taking Auryxia 210 mg iron Tablet Oral , Notes to Pharmacist: *Pick strength-form from [facility] for eRX*, Taking amLODIPine Besylate 10 MG Tablet Oral , Taking Famotidine 20 MG Tablet Oral , Taking Lactulose 10 GM/15ML Solution Oral , Taking Carvedilol 25 MG Tablet Oral , Taking Sevelamer Carbonate 2.4 gram Packet Oral , Notes to Pharmacist: *Pick strength-form from [facility] for eRX*, Taking Velphoro 500 mg Tablet Chewable Oral , Taking Lisinopril 20 MG Tablet Oral , Taking Minoxidil 2.5 mg Tablet Oral , Taking Sertraline HCl 100 MG Tablet 1 tablet Oral Once a day , Taking Mirtazapine 45 MG Tablet TAKE 1 TABLET BY MOUTH AT BEDTIME FOR 90 DAYS , Taking traZODone HCl 50 MG Tablet 1 tablet at bedtime Oral at bedtime , Not-Taking Lisinopril 40 MG Tablet Oral , Medication List reviewed and reconciled with the patient * Allergies: N .K.D.A. Objective: * Vitals: B P:152/84mm Hg, HR:62/min, Wt:118.2lbs, Wt-k.61 kg, Ht: 64.00 in, Ht-cm: 162.56 cm, BMI:20.29Index, Body Surface Area: 1.55. * Examination: P sychiatry: Appearance: w ell-groomed, well-nourished, appears stated age, slender build. Abnormal body movements: n one. Affect / mood: a ppropriate, full range. Aggression: l ow. Anger control: g ood. Attention: g ood. Attitude: c ooperative. Homicidal ideation: n one. Suicidal ideation: n one. Memory status: n o impairment noted. Degree of awareness of surroundings: w ithin normal limits.? Delusions: n o. Hallucinations: n o. Impulse control: g ood. Insight: f air. Intellectual functioning: a verage. Comprehension - Intellectual function: a verage. Judgement: g ood. Orientation: a wake, alert and oriented x 3. Perceptual disorders: n o perceptual disorder noted. Psychomotor activity: w ithin normal range. Speech / language: c lear and coherent, appropriate pitch/modulation, normal rate, volume, and articulation (RVR), proper grammar used. Thought content: a ppropriate. Thought process: i ntact. Assessment: * Assessment: 1. M ajor depressive disorder, recurrent, mild - F33.0 (Primary) 2 . G eneralized anxiety disorder - F41.1 3 . P rimary insomnia - F51.01 4 . C annabis dependence, uncomplicated - F12.20 5 . O ther skilled nursing (current) drug therapy - Z79.899 6 . E levated blood pressure reading - R03.0 ? 1. Mild recurrent major depr ession - Remeron 45 mg at night Sertraline 100 mg daily obtain labs recently done therapy refer to PAT patient would like to have kidney transplant in future- need 6 months therapy to qualify SSRI/SNRI side effects discussed including but not limited to, gastric upset, nausea, vomiting, diarrhea and/or constipation, weight changes, sexual side effects including loss of libido, increased suicidal thoughts/behaviors in children and young adults, and serotonin syndrome. Prescription Monitoring Report reviewed educated on all medications, benefits, side effects and risk, and educated on depression, anxiety, and mood d/o and educated on compliance of medications, metabolic and movement d/o education appointment's, continue therapy discussion with patient about course of treatmentand patient instructions. education on serotonin syndrome 2. Generalized anxiety disorder -hx PCP prescribes Xanax 3. Primary insomnia - Melatonin 10 mg OTC- PRN educated on Melatonin Trazodone 50 mg at bedtime - educated on rx Plan: * Treatment: 2. G eneralized anxiety disorder Notes: Generalized Anxiety Disorder: Care Instructions material was published, Learning About Anxiety Disorders material was published 3. P rimary insomnia Refill traZODone HCl Tablet, 50 MG, 1 tablet at bedtime, Oral, at bedtime, 90 days, 90 Tablet, Refills 1. Notes: Insomnia: Care Instructions material was published, Learning About Sleeping Well material was published 4. C annabis dependence, uncomplicated Notes: Learning About Cannabis Use Disorder material was published, Learning About Substance Use Disorder material was published, Substance Use Disorder: Care Instructions material was published, Marijuana Use: Care Instructions material was published, Codependency: Care Instructions material was published 5. O ther skilled nursing (current) drug therapy Notes: Medication Refill: Care Instructions material was published * Procedure Codes: 9 6127 BEHAV ASSMT W/SCORE & DOCD/STAND INSTRUMENT, G2211 VISIT COMPLEXITY INHERENT TO ONGOING CARE RELATED TO A PATIENT'S SINGLE, SERIOUS CONDITION OR A COMPLEX CONDITION * Preventive Medicine: Counseling: B P Management: P RE-HYPERTENSIVE FOLLOW-UP PLAN: Karly hernandezup 2 weeks ____, L IFFABIAN RECOMMENDATION: L ifestyle education Recommended Nonpharmacologic Interventions (Lifestyle Modifications) -Weight ReductionA heart-healthy diet , such as Dietary Approaches to Stop Hypertension (DASH) Eating PlanDietary Sodium RestrictionIncreased Physical ActivityModeration in alcohol consumption, R EFERRAL TO ALTERNATIVE / PRIMARY CARE PROVIDER: R eferral to general physician educated on healthy b/p 120/80monitor b/p at homerefer to PCP, Urgent care/ERheart healthy diet and exciselimit salt intakelimit soda intake and caffieneincrease water. * Follow Up: 3 Months (Reason: f/u rx) * Billing Information: * Visit Code: 28532 OFFICE OUTPATIENT VISIT 25 MINUTES DETAILED HISTORY AND EXAM/MODERATE MEDICAL DECISION MAKING. * Procedure Codes: 29855 BEHAV ASSMT W/SCORE & DOCD/STAND INSTRUMENT. G2211 VISIT COMPLEXITY INHERENT TO ONGOING CARE RELATED TO A PATIENT'S SINGLE, SERIOUS CONDITION OR A COMPLEX CONDITION. * RIGGER Sign off status: Completed true * Provider: MATTHEW REYES Date: 1 Generated for Kevin rushing/Corina/Rjani on: 0 06/30/2024 12:26 AM CDT History and Physical Notes * HPI (History of Present Illness) Category Sub-Category Detail Notes Category Not es History of Presenting Problem :Follow up depression, anxiety, sleep chronic recurrent since last visit, report alright, I need psychiatric care for 6 months to be on transplant list and be re-evualated for kidney at [facility] and I failed a heart test once 2 year, ago and depression and anxiety been good I am not that depressed I have struggle with sleep I was sleeping well for a while and now I have nights I look forward bed and nice sleep envirnoment and last week been struggle to fall asleep and I am tired and when in bed I have hard time fall asleep and not over thinking, some of it hard to get comfortable, and I sleep good when I fall asleep and I sleep good days after diaylsis and do not need anything to help me sleep, I still struggle to sleep at diaylsis, and bright lights and noise there, currently no sad or down no hopeless or helpless, sometimes I feel sad not all the time and all situational, I lost contact with all friends with kidney thing over the years, I am little anxious and restless and fidgety, appetite good I am hungery and eat 2 meals, snacks, weight pretty good I am above weight now 120, no SI/HI, no plans or intent no passive thoughts, medications all doing good and combinations no s/e, B/P rx changed recently and helps, I take all rx at night to help me wind down and no psychosis no robert, and concentration and focus good as long as I slept and motivation and interest good, and energy good, and I have not got into therapy yet and kidney transplant require 6 months therapy to qualify I am willing to see a therapist, when kidney failure happen I fought not to and be healthy, more grateful and second change being alive. mom present plan to get on transplant list at [facility] I have a referral for kidney transplant list [facility] and need to be in therapy no psychosis, no robert, no SI/HI dialysis currently three times a week left arm denies SI/HI no plans or intent no thoughts harm to self or others, Past attempts x 2 2011 OD, 2015, OD, FH none, psychiatric hospital none, no weapons in home ETOH rare STOPPED 2 years and 5 months ago SMOKING Quit in December 2020 LABS recently DRUGS cannabis Edibles - medical card 02/01/23 received caffeine non caffiene soda- and coffee - [facility]-stopped ASRS =36 Psychosis Reported by patient.Notes: hx auditory hallucinations may be induce by cannabis and will monitor - none present Suicide AssessmentReported by patient.Spectrum: #2 of suicidal attempts; family history of suicide (0); previous hospitalization for psychiatric condition (0)Notes:denies SI/HI no plans or intent no thoughts harm to self or others, Past attempts x 2 2011, 2015, OD, FH none, psychiatric hospital none, no weapons in home no self cutting or self harm RX HX Sertraline, Xanax, Remeron Depression screening PHQ-9 Little interest or pleasure in doing things: Several days Feeling down, depressed, or hopeless: Se veral days Trouble falling or staying asleep, or sl eeping too much: Several days Feeling tired or having little energy: S everal days Poor appetite or overeating: Several day s Feeling bad about yourself o r that you are a failure, or have let yourself or your family down: Not at all Trouble concentrating on thi ngs, such as reading the newspaper or watching television: Not at all Moving or speaking so slowly that other people could have noticed; or the opposite, being so fidgety or restless that you have been moving around a lot more than usual: Not at all Thoughts that you would be b teresa off or of hurting yourself in some way: Not at all Total Score: 5 Interpretation: Mild Depression Intervention Depression Screening Findings: P ositve Follow-Up for Depression: [facility] treatment assessment, Patient follow-up to return when and if necessary Suicide Risk Assessment Performed: Additional Evaluation for De pression: Psychiatric interview and evaluation Name of the standardized too l used for adult depression screening:: Patient Health Questionnaire (PHQ-9) Depression Screening SUNNY-7 (2018 Edition) Feelin g nervous, anxious, or on edge: Not at all Not being able to stop or control worryi ng: Not at all Worrying too much about different things : Not at all Trouble relaxing: Several days Being so restless that it is hard to sit still: Several days Becoming easily annoyed or irritable: Se veral days Feeling afraid as if something awful shiv ht happen: Not at all Total SUNNY-7 Score: 3 If you checked any problems, how difficult have they made it for you to do your work, take care of things at home, or get along with other people?: Somewhat difficult Interpretation of Total: (0 to 4) No Anx iety Examination Category Sub-Category Detail Notes Category Not es Psychiatry Appearance: well-groomed, we ll-nourished, appears stated age, slender build Attitude: cooperative Psychomotor activity: within normal rang e Abnormal body movements: none Attention: good Degree of awareness of surroundings: wit hin normal limits Orientation: awake, alert and bronson ented x 3 Affect / mood: appropriate, full ra nge Speech / language: clear and coherent, appropriate pitch/modulation, normal rate, volume, and articulation (RVR), proper grammar used Insight: fair Judgement: good Thought process: intact Thought content: appropriate Perceptual disorders: no perceptual diso rder noted Aggression: low Anger control: good Suicidal ideation: none Homicidal ideation: none Intellectual functioning: average Impulse control: good Memory status: no impairment noted Delusions: no Hallucinations: no Comprehension - Intellectual function: a verage
--- OUTSIDE RECORDS SUMMARY | 2024-06-30 00:26 | XMS_ITS | Encounter Summary ---
Author Organization [facility] Address [address] [place] [address] Care Team Providers Care Bag Worker Name Role Phone Bernadette Robertson MD Primary Care Provider [phone] Bernadette Robertson MD Primary Care Provider [phone] Encounter Details Date Type Department Care Team (Late st Contact Info) Description 02/28/2021 Telephone [facility] [address] [place] [address] Cr Titus MD [address] [phone] Social History Tobacco Use Types Packs/Day Years [...] on filedocumented in this encounter Care Teams Bag Worker Relationship Specialty Start Date End Date Bernadette Robertson MD [address] [place] [id number] PCP - General 07/02/20 03/04/21 Bernadette Robertson MD [address] [place] [id number] PCP - General 11/07/21 documented as of this encounter
--- OUTSIDE RECORDS SUMMARY | 2024-06-30 00:26 | XMS_ITS ---
Author Organization [facility] Address [address] [place] [address] Care Team Providers Care Baseball Glove Stuffer Name Role Phone Galen Hunter MD Primary Care Provider Unavail Tash Saucedo Unavailable [phone] Medications Medication SIG (Take, Route, Frequency, Duration) Notes Start Date End Date Status Famotidine 20 MG Oral 07/10/2023 Ac tive Lactulose 10 GM/15ML Oral 07/10/2023 Active Carvedilol 25 MG Oral 07/10/2023 Ac tive Sevelamer Carbonate 2.4 gram Oral *Pick strength-form from [email or web address] for eRX* 07/10/2023 Active Velphoro 500 mg Oral 07/10/2023 Act jammie Ondansetron HCl 4 MG Oral 07/10/2023 Active LOKELMA 10 GRAM ORAL POWDER PACKET *Reorder from [email or web address] for eRx and Interaction Alerts* 07/10/2023 Active Auryxia 210 mg iron Oral *Pick strength-form from [email or web address] for eRX* 07/10/2023 Active amLODIPine Besylate 10 MG Oral 07/10/2023 Active Mirtazapine 45 MG TAKE 1 TABLET BY MOUTH AT BEDTIME FOR 90 DAYS for 90 Active Lisinopril 20 MG Oral 07/10/2023 Ac tive Minoxidil 2.5 mg Oral 07/10/2023 Ac tive Lisinopril 40 MG Oral 07/10/2023 No t-Taking Sertraline HCl 100 MG 1 tablet Oral Once a day for 90 days 07/10/2023 Active traZODone HCl 50 MG 1 tablet at bedtime Oral at bedtime for 90 days Active Social History Sex Assigned At : Social History Observation Description Sex Assigned At Male Encounters Encounter Location Date Provider Diagnosis [facility] [address] [place] [address] 02/15/2024 Tash Saucedo Plan Of Treatment Next Appt Details Provider Name:Tash Saucedo , 07/11/2024 04:00:00 PM, [address], [place], [address], Progress Notes * GOLDEN KIMOB:1990 (33 yo M)Acc No.[id number]:02/15/2024 Patient: CHANTEL BEE Provider: MATTHEW REYES :1990 A ge:33 Y S ex:Male Date:02/15/2024 Address:[address] [place] [address] Subjective: * Chief Complaints: * * Medical History: * Medications: T aking Ondansetron HCl 4 MG Tablet Oral , Taking LOKELMA 10 GRAM ORAL POWDER PACKET , Notes to Pharmacist: *Reorder from [facility] for eRx and Interaction Alerts*, Taking Auryxia 210 mg iron Tablet Oral , Notes to Pharmacist: *Pick strength-form from [facility] for eRX*, Taking amLODIPine Besylate 10 MG Tablet Oral , Taking Famotidine 20 MG Tablet Oral , Taking Lactulose 10 GM/15ML Solution Oral , Taking Carvedilol 25 MG Tablet Oral , Taking Sevelamer Carbonate 2.4 gram Packet Oral , Notes to Pharmacist: *Pick strength-form from [facility] for eRX*, Taking Velphoro 500 mg Tablet Chewable Oral , Taking Lisinopril 20 MG Tablet Oral , Taking Minoxidil 2.5 mg Tablet Oral , Taking Sertraline HCl 100 MG Tablet 1 tablet Oral Once a day , Taking traZODone HCl 50 MG Tablet 1 tablet at bedtime Oral at bedtime , Taking Mirtazapine 45 MG Tablet TAKE 1 TABLET BY MOUTH AT BEDTIME FOR 90 DAYS , Not-Taking Lisinopril 40 MG Tablet Oral Objective: * Vitals: Assessment: Plan: * Treatment: * Billing Information: * Visit Code: * Procedure Codes: * Sign off status: Completed true * Provider: MATTHEW REYES Date: 1 Generated for Kevin rushing/Jocelyn on: 0 06/30/2024 12:26 AM CDT
--- OUTSIDE RECORDS SUMMARY | 2024-06-30 00:26 | XMS_ITS | Encounter Summary ---
Author Organization [facility] Address [address] [place] [address] Care Team Providers Care Hand Rigger Name Role Phone Bernadette Robertson MD Primary Care Provider [phone] Encounter Details Date Type Department Care Team (Late st Contact Info) Description 08/12/2021 Telephone [facility] [address] [place] [address] Cr Titus MD [address] [phone] Social History Tobacco Use Types Packs/Day Years Used Date Smoking Tobacco: Former Cigarettes 0.5 10 0 01/13/2011 - 01/13/2021 Smokeless Tobacco: Never Alcohol Use Standard Drinks/Week Comments Not Currently 0 (1 standard drink = 0.6 oz pur e alcohol) occasional AUDIT-C Answer Date Recorded Q1: How often do you have a drink containing alc ohol? Never 07/23/2021 Q2: How many drinks containi ng alcohol do you have on a typical day when you are drinking? 1 or 2 07/23/2021 Q3: How often do you have six or more drinks on one occasion? Never 07/23/2021 PHQ-2 Answer Date Recorded PHQ2 TOTAL SCORE 0 02/07/2021 Sex and Gender Information Value Date Recorded Sex Assigned at Not on file Gender Identity Not on file Sexual Orientation Not on file documented as of this encounter Functional Status Functional Status Response Date of Assess ment Is person deaf or have serious hearing difficult y? No 07/23/2021 Is person blind or have serious difficulty seein g? No 07/23/2021 Does person have serious dif ficulty walking/climbing stairs? No 07/23/2021 Does person have difficulty dressing/bathing? No 07/23/2021 Does person have difficulty doing errands alone? No 07/23/2021 Cognitive Status Response Date of Assessm ent Does person have difficulty concentrating/remembering/making decisions? No 07/23/2021 documented as of this encounter Plan of Treatment Not on file documented as of this encounter Visit Diagnoses Not on filedocumented in this encounter Care Teams Hand Rigger Relationship Specialty Start Date End Date Bernadette Robertson MD [address] [place] [phone] PCP - General 11/07/21 documented as of this encounter
--- OUTSIDE RECORDS SUMMARY | 2024-06-30 00:26 | XMS_ITS | Encounter Summary ---
Author Organization [facility] Address [address] [place] [address] Care Team Providers Care Sharepoint Developer Name Role Phone Bernadette Robertson MD Primary Care Provider [phone] Encounter Details Date Type Department Care Team (Late st Contact Info) Description 05/31/2021 Telephone [facility] [address] [place] [address] Cr Titus MD [address] [place] [phone] Social History Tobacco Use Types Packs/Day Years Used Date Smoking Tobacco: Former Cigarettes 0.5 10 0 01/13/2011 - 01/13/2021 Smokeless Tobacco: Never Alcohol Use Standard Drinks/Week Comments Yes 0 (1 standard drink = 0.6 oz pur e alcohol) occasional PHQ-2 Answer Date Recorded PHQ2 TOTAL SCORE 0 02/07/2021 Sex and Gender Information Value Date Recorded Sex Assigned at Not on file Gender Identity Not on file Sexual Orientation Not on file COVID-19 Exposure Response Date Recorded In the last month, have you been in contact with someone who was confirmed or suspected to have Coronavirus / COVID-19? No / Unsure 05/01/2021 8:23 AM CLINICAL ASSESSMENT MANAGER documented as of this encounter Functional Status Functional Status Response Date of Assess ment Is person deaf or have serious hearing difficult y? No 03/12/2021 Is person blind or have serious difficulty seein g? No 03/12/2021 Does person have serious dif ficulty walking/climbing stairs? No 03/12/2021 Does person have difficulty dressing/bathing? No 03/12/2021 Does person have difficulty doing errands alone? No 03/12/2021 Cognitive Status Response Date of Assessm ent Does person have difficulty concentrating/remembering/making decisions? No 03/12/2021 documented as of this encounter Plan of Treatment Not on file documented as of this encounter Visit Diagnoses Not on filedocumented in this encounter Care Teams Sharepoint Developer Relationship Specialty Start Date End Date Bernadette Robertson MD [address] [place] [phone] PCP - General 11/07/21 documented as of this encounter
--- OUTSIDE RECORDS SUMMARY | 2024-06-30 00:26 | XMS_ITS | Encounter Summary ---
Author Organization [facility] Address [address] [place] [address] Care Team Providers Care Lining Sewer Name Role Phone Bernadette Robertson MD Primary Care Provider [phone] Encounter Details Date Type Department Care Team (Late st Contact Info) Description 08/09/2021 Telephone [facility] [address] [place] [address] Cr Titus MD [address] [phone] Social History Tobacco Use Types Packs/Day Years [...] on filedocumented in this encounter Care Teams Lining Sewer Relationship Specialty Start Date End Date Bernadette Robertson MD [address] [place] [phone] PCP - General 11/07/21 documented as of this encounter
--- OUTSIDE RECORDS SUMMARY | 2024-06-30 00:27 | XMS_ITS ---
Author Organization [facility] As [employer] Address [address] [place] [address] Care Team Providers Care Materials Handling Coordinator Name Role Phone Galen Hunter MD Primary Care Provider Unavail Tash Saucedo Unavailable [phone] Allergies No Known Allergies REASON FOR VISIT Follow Up Medications Medication SIG (Take, Route, Frequency, Duration) Notes Start Date End Date Status LOKELMA 10 GRAM ORAL POWDER PACKET *Reorder from [employer] for eRx and Interaction Alerts* 07/10/2023 Active Lisinopril 40 MG Oral 07/10/2023 No t-Taking Ondansetron HCl 4 MG Oral 07/10/2023 Active Minoxidil 2.5 mg Oral 07/10/2023 Ac tive Lisinopril 20 MG Oral 07/10/2023 Ac tive Velphoro 500 mg Oral 07/10/2023 Act jammie Sevelamer Carbonate 2.4 gram Oral *Pick strength-form from [employer] for eRX* 07/10/2023 Active traZODone HCl 50 MG 1 tablet at bedtime Oral at bedtime for 90 days Active Carvedilol 25 MG Oral 07/10/2023 Ac tive Lactulose 10 GM/15ML Oral 07/10/2023 Active amLODIPine Besylate 10 MG Oral 07/10/2023 Active Auryxia 210 mg iron Oral *Pick strength-form from [employer] for eRX* 07/10/2023 Active Mirtazapine 45 MG 1 tablet at bedtime Oral Once a day for 90 days 07/10/2023 Active Sertraline HCl 100 MG 1 tablet Oral Once a day for 90 days 07/10/2023 Active Famotidine 20 MG Oral 07/10/2023 Ac tive Social History Sex Assigned At : Social History Observation Description Sex Assigned At Male Problems Problem Type SNOMED Code ICD Code Onset Dates Problem Status W/U Status Risk Notes Problem Mild recurrent major depression (54314869) Major depressive disorder, recurrent, mild (F33.0) 4 Active confirmed Problem Generalized anxiety disorder (95270735) Generalized anxiety disorder (F41.1) 4 Active confirmed Problem Primary insomnia (9630757) Primary insomnia (F51.01) 4 Active confirmed Problem Cannabis dependence (26359723) Cannabis dependence, uncomplicated (F12.20) 3 Active confirmed Problem Long-term current use of drug therapy (047349359) Other residential (current) drug therapy (Z79.899) 4 Active confirmed Vital Signs Blood pressure systolic 189 mm Hg 11/16/19 24 Blood pressure diastolic 120 mm Hg 024 Heart Rate 61 /min 11/16/2023 Height 64.00 in 11/16/2023 Weight 119.8 lbs 11/16/2023 BMI 20.56 kg/m2 11/16/2023 Height-cm 162.56 cm 11/16/2023 Weight-kg 54.34 kg 11/16/2023 Encounters [facility] [address] [facility] [facility] [address] [address] 11/16/2023 Tash Saucedo Major depressive disorder, recurrent, mild F33.0 ; Generalized anxiety disorder F41.1 ; Primary insomnia F51.01 ; Cannabis dependence, uncomplicated F12.20 and Other mold engraver (current) drug therapy Z79.899 Assessments Encounter Date Diagnosis (ICD Code) Assessment Notes Treatment Notes Treatment Clinical Notes Section Notes 11/16/2023 Major depressive disorder, recurrent, mild (ICD-10 - F33.0) Learning About Depression Screening material was published, Preventing Depression From Coming Back: Care Instructions material was published, Learning About Depression material was published, Seasonal Affective Disorder: Care Instructions material was published, Depression Treatment: Care Instructions material was published 1. Mild recurrent major depression -Remeron 45 mg at night Sertraline 100 mg daily labs reviewed 03/26/23obtain labs recently donetherapy refer to SIApatient would like to have kidney transplant in future SSRI/SNRI side effects discussed including but not [...] treatmentand patient instructions. education on serotonin syndrome F33.0: Major depressive disorder, recurrent, mild mirtazapine 45 mg tablet - Take 1 tablet(s) every day by oral route at bedtime for 30 days, for depression. sertraline 100 mg tablet - TAKE 1 TABLET BY MOUTH ONCE DAILY IN THE MORNING 2. Generalized anxiety disorder -hx PCP prescribes Xanax 3. Primary insomnia - Melatonin 10 mg OTC- PRN educated on Melatonin Trazodone 50 mg at bedtime - educated on rx F51.01: Primary insomnia 11/16/2023 Generalized anxiety disorder (ICD-10 - F41.1) Generalized Anxiety Disorder: Care Instructions material was published, Learning About Anxiety Disorders material was published 1. Mild recurrent major depression -Remeron 45 mg at night Sertraline 100 mg daily labs reviewed 03/26/23obtain labs recently donetherapy refer to SIApatient would like to have kidney transplant in future SSRI/SNRI side effects discussed including but not [...] treatmentand patient instructions. education on serotonin syndrome F33.0: Major depressive disorder, recurrent, mild mirtazapine 45 mg tablet - Take 1 tablet(s) every day by oral route at bedtime for 30 days, for depression. sertraline 100 mg tablet - TAKE 1 TABLET BY MOUTH ONCE DAILY IN THE MORNING 2. Generalized anxiety disorder -hx PCP prescribes Xanax 3. Primary insomnia - Melatonin 10 mg OTC- PRN educated on Melatonin Trazodone 50 mg at bedtime - educated on rx F51.01: Primary insomnia 11/16/2023 Primary insomnia (ICD-10 - F51.01) Insomnia: Care Instructions material was published, Learning About Sleeping Well material was published 1. Mild recurrent major depression -Remeron 45 mg at night Sertraline 100 mg daily labs reviewed 03/26/23obtain labs recently donetherapy refer to SIApatient would like to have kidney transplant in future SSRI/SNRI side effects discussed including but not [...] treatmentand patient instructions. education on serotonin syndrome F33.0: Major depressive disorder, recurrent, mild mirtazapine 45 mg tablet - Take 1 tablet(s) every day by oral route at bedtime for 30 days, for depression. sertraline 100 mg tablet - TAKE 1 TABLET BY MOUTH ONCE DAILY IN THE MORNING 2. Generalized anxiety disorder -hx PCP prescribes Xanax 3. Primary insomnia - Melatonin 10 mg OTC- PRN educated on Melatonin Trazodone 50 mg at bedtime - educated on rx F51.01: Primary insomnia 11/16/2023 Cannabis dependence, uncomplicated (ICD-10 - F12.20) Learning About Cannabis Use Disorder material was published, Learning About Substance Use Disorder material was published, Substance Use Disorder: Care Instructions material was published, Marijuana Use: Care Instructions material was published, Codependency: Care Instructions material was published 1. Mild recurrent major depression -Remeron 45 mg at night Sertraline 100 mg daily labs reviewed 03/26/23obtain labs recently donetherapy refer to SIApatient would like to have kidney transplant in future SSRI/SNRI side effects discussed including but not [...] treatmentand patient instructions. education on serotonin syndrome F33.0: Major depressive disorder, recurrent, mild mirtazapine 45 mg tablet - Take 1 tablet(s) every day by oral route at bedtime for 30 days, for depression. sertraline 100 mg tablet - TAKE 1 TABLET BY MOUTH ONCE DAILY IN THE MORNING 2. Generalized anxiety disorder -hx PCP prescribes Xanax 3. Primary insomnia - Melatonin 10 mg OTC- PRN educated on Melatonin Trazodone 50 mg at bedtime - educated on rx F51.01: Primary insomnia 11/16/2023 Other mold engraver (current) drug therapy (ICD-10 - Z79.899) Medication Refill: Care Instructions material was published 1. Mild recurrent major depression -Remeron 45 mg at night Sertraline 100 mg daily labs reviewed 03/26/23obtain labs recently donetherapy refer to SIApatient would like to have kidney transplant in future SSRI/SNRI side effects discussed including but not [...] treatmentand patient instructions. education on serotonin syndrome F33.0: Major depressive disorder, recurrent, mild mirtazapine 45 mg tablet - Take 1 tablet(s) every day by oral route at bedtime for 30 days, for depression. sertraline 100 mg tablet - TAKE 1 TABLET BY MOUTH ONCE DAILY IN THE MORNING 2. Generalized anxiety disorder -hx PCP prescribes Xanax 3. Primary insomnia - Melatonin 10 mg OTC- PRN educated on Melatonin Trazodone 50 mg at bedtime - educated on rx F51.01: Primary insomnia 11/16/2023 Other Sertraline Oral Tablet (SERTRALINE - ORAL) material was published, Mirtazapine Oral Tablet (MIRTAZAPINE - ORAL) material was published, Trazodone Oral Tablet (TRAZODONE - ORAL) material was published 1. Mild recurrent major depression -Remeron 45 mg at night Sertraline 100 mg daily labs reviewed 03/26/23obtain labs recently donetherapy refer to SIApatient would like to have kidney transplant in future SSRI/SNRI side effects discussed including but not [...] treatmentand patient instructions. education on serotonin syndrome F33.0: Major depressive disorder, recurrent, mild mirtazapine 45 mg tablet - Take 1 tablet(s) every day by oral route at bedtime for 30 days, for depression. sertraline 100 mg tablet - TAKE 1 TABLET BY MOUTH ONCE DAILY IN THE MORNING 2. Generalized anxiety disorder -hx PCP prescribes Xanax 3. Primary insomnia - Melatonin 10 mg OTC- PRN educated on Melatonin Trazodone 50 mg at bedtime - educated on rx F51.01: Primary insomnia Plan Of Treatment Medication Medication Name Sig Start Date Stop Date Notes traZODone HCl 50 MG 1 tablet at bedtime Oral at bedtime for 90 days Mirtazapine 45 MG 1 tablet at bedtime Oral Once a day for 90 days 07/10/2023 Sertraline HCl 100 MG 1 tablet Oral Once a day for 90 days 07/10/2023 Treatment Notes Assessment Notes Major depressive disorder, recurrent, mi ld Learning About Depression Screening material was published, Preventing Depression From Coming Back: Care Instructions material was published, Learning About Depression material was published, Seasonal Affective Disorder: Care Instructions material was published, Depression Treatment: Care Instructions material was published Generalized anxiety disorder Generalized Anxiety Disorder: Care Instructions material was published, Learning About Anxiety Disorders material was published Primary insomnia Insomnia: Care Instr uctions material was published, Learning About Sleeping Well material was published Cannabis dependence, uncomplicated Learn ing About Cannabis Use Disorder material was published, Learning About Substance Use Disorder material was published, Substance Use Disorder: Care Instructions material was published, Marijuana Use: Care Instructions material was published, Codependency: Care Instructions material was published Other mold engraver (current) drug therapy M edication Refill: Care Instructions material was published Other Sertraline Oral Tabl et (SERTRALINE - ORAL) material was published, Mirtazapine Oral Tablet (MIRTAZAPINE - ORAL) material was published, Trazodone Oral Tablet (TRAZODONE - ORAL) material was published Next Appt Details Follow Up: 3 Months, Reason: f/u rx Provider Name:Tash Saucedo , 07/11/2024 04:00:00 PM, [address] [address] [address], [facility] [address], [place], [address], Progress Notes * GOLDEN KIMOB:1990 (33 yo M)Acc No.[id number]:11/16/2023 Patient: Caleb MARYCHANTEL Provider: MATTHEW REYES :1990 A ge:33 Y S ex:Male Date:11/16/2023 Address:[address] [place] [address] Subjective: * Chief Complaints: * 1 . Follow Up. * HPI: H istory of Presenting Problem: Generalized Anxiety DisorderReported by german sahu.Onset/Timing: m onths Severity: m ild Context: d epression Modifying Factors: p sychotropic medication; rest Associated Symptoms: f atigue; s leep disturbances Notes :Follow up depression, anxiety, sleep chronic recurrent since last visit, report alright I was feeling last few weeks ago lost desire to do things I am regaining desire now and no triggers, k idney transplant not going great they need a letter to release information, and I need to have test also done, I have to be in therapy at least 6 months to qualify, I will schedule with PAT, no smoking over 2 years and 10 months ago and no ETOH, currently no sad or down no hopeless or helpless, I am little anxious and restless, with sitting still only type I have and rx is doing good and tolerating all rx no s/e sleep poor I like idea going to bed but interrupted s;ee[ and need to ge tout bed couple hours then back to bed, sleep average 5-8 hours, appetite poor also I have not lost weight butto sit and eat whole meal difficult I want to eat and sound good just act of eating hard, dialysis going well no complaints, I am on new rx phorophous binder, it is new to market, m otivation and interest I had lost some before but now on up end of it and regaining it play video games, and concentrate and focus alright, energy alright no A/V hallucinations, no paranoia, no delusions, no robert, I am using cannabis daily no SI/HI, no plans or intent no passive thoughts, medications all doing good and combinations no s/e when kidney failure happen I fought not to and be healthy, more grateful and second change being alive. I have a referral for kidney transplant list [facility] and need to be in therapy no psychosis, no robert, no SI/HI dialysis currently three times a week left arm denies SI/HI no plans or intent no thoughts harm to self or others, Past attempts x 2 2011 OD, 2016, OD, FH none, psychiatric hospital none, no weapons in home ETOH rare STOPPED 2 years and 5 months ago SMOKING Quit in December 2020 LABS recently DRUGS cannabis Edibles - medical card 02/01/23 received caffeine decreased [facility]-sto[facility] ASRS =36 Major Depressive DisorderReported by german sahu.Onset/Timing: a s long as patient can remember Severity: m ild Context: h istory of depression Modifying Factors: p sychotropic medication Associated Symptoms: difficulty concentrating; no irritability; no restlessness; no agitation; change in appetite; no weight loss; weight gain; no feelings of hopelessness; no feelings of helplessness; no inappropriate guilt; participates in usual acitivities; no suicidal ideations; no excessive sleeping; no hallucinations; no delusions; f atigue; s leep disturbances Notes: Psychosis Reported by german sahu.Notes: hx auditory hallucinations may be induce by cannabis and will monitor - none present Suicide AssessmentReported by german sahu.Spectrum: # 2 of suicidal attempts; family history of suicide (0); previous hospitalization for psychiatric condition (0)Notes:denies SI/HI no plans or intent no thoughts harm to self or others, Past attempts x 2 2012 OD, 2016, OD, FH none, psychiatric hospital none, no weapons in home no self cutting or self harm RX HX Sertraline, Xanax, Remeron. * ROS: P atient reports d ifficulty hearing. He reports s hortness of breath when walking (steps) b ut reports no chest pain, no arm pain on exertion, no shortness of breath when lying down, no palpitations, and no known heart murmur;?port left arm- dialysis. He reports G ERD b ut reports no abdominal pain, no nausea, no vomiting, [...] no neck pain, and no difficulty walking; c yst behind rt knee seen PCP and rupture had bruise and healed. Skin:: t attoo rt forearm . He reports no loss of consciousness, no weakness, no numbness, no seizures, no dizziness, no migraines, no headaches, no tremor, no gait dysfunction, and no paralysis; h x migraines. He reports s leep disturbances, restless sleep, and anxiety b ut reports depression, no alcohol abuse, no hallucinations, no suicidal thoughts, no mood swings, no memory loss, and no agitation. H e reports f atigue. He reports no fever, no significant weight gain, and no significant weight loss. He reports no cough and no shortness of breath. * Medical History: P yevgeniylems: Cannabis dependence, Generalized anxiety disorder, Long-term drug therapy, Mild recurrent major depression, Primary insomnia, Severe recurrent major depression, Weight loss, ,. * Surgical History: K idney biopsy (3525761) , Open heart surgery (3643262) 2 yrs old , Plastic operation on hand with implant ([id number]) , Transfusion bld/bld compnt (29141) , Heart surgery 04/20/1992. * Social History: M igrated Social History: M igrated Social History: Alcohol Intake: None 06/30/2022,Tobacco Years: Former smoker 06/05/2021,Smoking Status: 10 04/10/2023. * Medications: T aking Sertraline HCl 100 MG Tablet Oral , Taking Ondansetron HCl 4 MG Tablet Oral , Taking LOKELMA 10 GRAM ORAL POWDER PACKET , Notes to Pharmacist: *Reorder from [facility] for eRx and Interaction Alerts*, Taking Auryxia 210 mg iron Tablet Oral , Notes to Pharmacist: *Pick strength-form from [facility] for eRX*, Taking amLODIPine Besylate 10 MG Tablet Oral , Taking Famotidine 20 MG Tablet Oral , Taking Lactulose 10 GM/15ML Solution Oral , Taking Carvedilol 25 MG Tablet Oral , Taking Sevelamer Carbonate 2.4 gram Packet Oral , Notes to Pharmacist: *Pick strength-form from [facility] for eRX*, Taking Mirtazapine 45 MG Tablet Oral , Taking Velphoro 500 mg Tablet Chewable Oral , Taking Lisinopril 20 MG Tablet Oral , Taking Minoxidil 2.5 mg Tablet Oral , Taking traZODone HCl 50 MG Tablet 1 tablet at bedtime Oral at bedtime , Not-Taking Lisinopril 40 MG Tablet Oral , Medication List reviewed and reconciled with the patient * Allergies: N .K.D.A. Objective: * Vitals: B P:189/120mm Hg, HR:61/min, Wt:119.8lbs, Wt-k.34 kg, Ht: 64.00 in, Ht-cm: 162.56 cm, BMI:20.56Index, Body Surface Area: 1.56. * Examination: P sychiatry: Appearance: w ell-groomed, [...] uncomplicated - F12.20 5 . O ther mold engraver (current) drug therapy - Z79.899 1. Mild recurrent major depr ession - Remeron 45 mg at night Sertraline 100 mg daily labs reviewed 03/26/23obtain labs recently donetherapy refer to SIApatient would like to have kidney transplant in future SSRI/SNRI side effects discussed including but not [...] treatmentand patient instructions. education on serotonin syndrome F33.0: Major depressive disorder, recurrent, mild mirtazapine 45 mg tablet - T lisa 1 tablet(s) every day by oral route at bedtime for 30 days, for depression. sertraline 100 mg tablet - T LISA 1 TABLET BY MOUTH ONCE DAILY IN THE MORNING 2. Generalized anxiety disorder - hx PCP prescribes Xanax 3. Primary insomnia - Melatonin 10 mg OTC- PRN educated on Melatonin Trazodone 50 mg at bedtime - educated on rx F51.01: Primary insomnia Plan: * Treatment: 2. G eneralized anxiety disorder Notes: Generalized Anxiety Disorder: Care Instructions material was published, Learning About Anxiety Disorders material was published 3. P rimary insomnia Refill traZODone HCl Tablet, 50 MG, 1 tablet at bedtime, Oral, at bedtime, 90 days, 90 Tablet, Refills 0. Notes: Insomnia: Care Instructions material was published, Learning About Sleeping Well material was published 4. C annabis dependence, uncomplicated Notes: Learning About Cannabis Use Disorder material was published, Learning About Substance Use Disorder material was published, Substance Use Disorder: Care Instructions material was published, Marijuana Use: Care Instructions material was published, Codependency: Care Instructions material was published 5. O ther mold engraver (current) drug therapy Notes: Medication Refill: Care Instructions material was published 6. O thers Notes: Sertraline Oral Tablet (SERTRALINE - ORAL) material was published, Mirtazapine Oral Tablet (MIRTAZAPINE - ORAL) material was published, Trazodone Oral Tablet (TRAZODONE - ORAL) material was published * Procedure Codes: G 2211 VISIT COMPLEXITY INHERENT TO ONGOING CARE RELATED TO A PATIENT'S SINGLE, SERIOUS CONDITION OR A COMPLEX CONDITION * Preventive Medicine: Counseling: B P Management: F IRST HYPERTENSIVE BP READING FOLLOW-UP PLAN: P ATIENT reported forgot to take B/P rx todaydialysis AND Thursdayeducated to take B/P as prescribedto call PCP/ Dialysis provider with B/PGO TO ERmonitor B/Pand healthy B/P numbers, R EFERRAL TO ALTERNATIVE / PRIMARY CARE PROVIDER: r efer to dialysis provider and PCPER. * Follow Up: 3 Months (Reason: f/u rx) * Billing Information: * Visit Code: 46336 OFFICE OUTPATIENT VISIT 25 MINUTES DETAILED HISTORY AND EXAM/MODERATE MEDICAL DECISION MAKING. * Procedure Codes: G2211 VISIT COMPLEXITY INHERENT TO ONGOING CARE RELATED TO A PATIENT'S SINGLE, SERIOUS CONDITION OR A COMPLEX CONDITION. * Sign off status: Completed true * Provider: MATTHEW REYES Date: 0 11/16/2023 Generated for Kevin rushing/Corina/Rajni on: 0 06/30/2024 12:26 AM CDT History and Physical Notes * HPI (History of Present Illness) Category Sub-Category Detail Notes Category Not es History of Presenting Problem Generalized Anxiety DisorderReported by patient.Onset/Timing: months Severity: mild Context: depression Modifying Factors: psychotropic medication; rest Associated Symptoms: fatigue; sleep disturbances Notes :Follow up depression, anxiety, sleep chronic recurrent since last visit, report alright I was feeling last few weeks ago lost desire to do things I am regaining desire now and no triggers, kidney transplant not going great they need a letter to release information, and I need to have test also done, I have to be in therapy at least 6 months to qualify, I will schedule with PAT, no smoking over 2 years and 10 months ago and no ETOH, currently no sad or down no hopeless or helpless, I am little anxious and restless, with sitting still only type I have and rx is doing good and tolerating all rx no s/e sleep poor I like idea going to bed but interrupted s;ee[ and need to ge tout bed couple hours then back to bed, sleep average 5-8 hours, appetite poor also I have not lost weight butto sit and eat whole meal difficult I want to eat and sound good just act of eating hard, dialysis going well no complaints, I am on new rx phorophous binder, it is new to market, motivation and interest I had lost some before but now on up end of it and regaining it play video games, and concentrate and focus alright, energy alright no A/V hallucinations, no paranoia, no delusions, no robert, I am using cannabis daily no SI/HI, no plans or intent no passive thoughts, medications all doing good and combinations no s/e when kidney failure happen I fought not to and be healthy, more grateful and second change being alive. I have a referral for kidney transplant list [facility] and need to be in therapy no psychosis, no robert, no SI/HI dialysis currently three times a week left arm denies SI/HI no plans or intent no thoughts harm to self or others, Past attempts x 2 2011 OD, 2016, OD, FH none, psychiatric hospital none, no weapons in home ETOH rare STOPPED 2 years and 5 months ago SMOKING Quit in December 2020 LABS recently DRUGS cannabis Edibles - medical card 02/01/23 received caffeine decreased [facility]-stopped ASRS =36 Major Depressive DisorderReported by patient.Onset/Timing: as long as patient can remember Severity: mild Context: history of depression Modifying Factors: psychotropic medication Associated Symptoms: difficulty concentrating; no irritability; no restlessness; no agitation; change in appetite; no weight loss; weight gain; no feelings of hopelessness; no feelings of helplessness; no inappropriate guilt; participates in usual acitivities; no suicidal ideations; no excessive sleeping; no hallucinations; no delusions; fatigue; sleep disturbances Notes: Psychosis Reported by patient.Notes: hx auditory hallucinations may be induce by cannabis and will monitor - none present Suicide AssessmentReported by patient.Spectrum: #2 of suicidal attempts; family history of suicide (0); previous hospitalization for psychiatric condition (0)Notes:denies SI/HI no plans or intent no thoughts harm to self or others, Past attempts x 2 2012 OD, 2016, OD, FH none, psychiatric hospital none, no weapons in home no self cutting or self harm RX HX Sertraline, Xanax, Remeron Examination Category Sub-Category Detail Notes Category Not [...]
--- OUTSIDE RECORDS SUMMARY | 2024-06-30 00:27 | XMS_ITS | Encounter Summary ---
Author Organization [facility] Address [address] [place] [address] Care Team Providers Care Ota Name Role Phone Bernadette Robertson MD Primary Care Provider [phone] Encounter Details Date Type Department Care Team (Late st Contact Info) Description 03/07/2021 Telephone [facility] [address] [place] [address] Cr Titus MD [address] [id number] Social History Tobacco Use Types Packs/Day Years [...] on filedocumented in this encounter Care Teams Ota Relationship Specialty Start Date End Date Bernadette Robertson MD [address] [place] [address] PCP - General 11/07/21 documented as of this encounter
--- OUTSIDE RECORDS SUMMARY | 2024-06-30 00:27 | XMS_ITS | Clinical Summary ---
Author Organization [facility] Address [address] [place] [id number] Care Team Providers Care Business Project Analyst Name Role Phone None, Provider MD Primary Care Provider Unavaila ble Allergies No known active allergies Social History Tobacco Use Types Packs/Day Years Used Date Smoking Tobacco: Every Day Smokeless Tobacco: Never Alcohol Use Standard Drinks/Week Comments Yes 0 (1 standard drink = 0.6 oz pur e alcohol) socially Sex and Gender Information Value Date Recorded Sex Assigned at Not on file Legal Sex Male 7:50 PM CDT Gender Identity Not on file Sexual Orientation Not on file Last Filed Vital Signs Vital Sign Reading Time Taken Comments Blood Pressure 121/87 01/11/2021 8:39 PM CDT Pulse 116 01/11/2021 8:39 PM CDT Temperature 37.1 C (98.7 F) 01/11/2021 2:16 PM CDT Respiratory Rate 16 01/11/2021 8:39 PM CDT Oxygen Saturation 100% 01/11/2021 8:39 PM CDT Inhaled Oxygen Concentration - - Weight 49 kg (108 lb) 01/11/2021 2:16 PM CDT Height 162.6 cm (5' 4 ) 01/11/2021 2:16 PM CDT Body Mass Index 18.54 01/11/2021 2:16 PM CDT Plan of Treatment Health Maintenance Due Date Last Done Comments Annual Physical 1992 Pneumococcal Vaccine: Pediat rics (0 to 5 Years) and At-Risk Patients (6 to 64 Years) (1 of 2 - PCV) 1995 Hepatitis C 2007 DTaP, Tdap and Td Vaccines ( 1 - Tdap) 2008 01/21/1994 Hepatitis B Vaccines (1 of 3 - 19+ 3-dose series) 2008 COVID-19 Vaccine (2 - 2023-2 5 season) 2023 07/05/2020 Influenza Adult (#1) 2024 HPV Vaccines Aged Out No longer eligi ble based on patient's age to complete this topic Meningococcal B Vaccine Aged Out No l onger eligible based on patient's age to complete this topic Meningococcal Vaccine Aged Out No reza jacques eligible based on patient's age to complete this topic RSV Immunizations Under 20 Months Aged Out No longer eligible based on patient's age to complete this topic Insurance MEDICAID Care Teams Business Project Analyst Relationship Specialty Start Date End Date None, ProviderMD PCP - General 01/11/21
--- OUTSIDE RECORDS SUMMARY | 2024-06-30 00:27 | XMS_ITS | Patient Health Summary ---
Author Organization [facility] Address [address] [place] [address] Care Team Providers Care Television Parts Tester Name Role Phone Bernadette Robertson MD Primary Care Provider [phone] Note from [facility],non-owned Affiliates and Associated Physician Practices is amultiple site organization consisting of ambulatory clinics and hospital sitesin [place], [place], [place] and [place]. This disclosure is being madepursuant to the Care Everywhere program and may not contain all information available regarding this patient. Last updated 18.[facility] Allergies No known active allergies Medications * Be aware that medications may not be up to date on this document. Alwaysverify current medications with the patient. * vitamin D, cholecalciferol, 50 MCG (2000 UT) tablet Take 2,000 Units by mouth once daily * sertraline (ZOLOFT) 100 MG tablet Take 100 mg by mouth once daily * carvedilol (COREG) 12.5 MG tablet Take 25 mg by mouth 2 times daily with morning and evening meal * amLODIPine (NORVASC) 10 MG tablet Take 10 mg by mouth once daily * cinacalcet (SENSIPAR) 30 MG tablet Take 30 mg by mouth daily with breakfast * acetaminophen (TYLENOL) 500 MG tablet(Started 07/02/2020) Take 1 (one) tablet by mouth every 6 hours as needed Maximum allowable Acetaminophen amount = 4 Grams (4000 mg) / 24 hours. * mirtazapine (REMERON) 30 MG tablet(Started 01/19/2021) Take 1 (one) tablet by mouth at bedtime 2 refills by 01/19/2022 * polyethylene glycol 3350 (MIRALAX) 17 g packet(Started 01/19/2021) Take 17 (seventeen) g by mouth 2 times daily * senna-docusate (SENOKOT-S) 8.6-50 MG tablet(Started 01/19/2021) Take 1 (one) tablet by mouth once daily * famotidine (PEPCID) 20 MG tablet(Started 01/19/2021) Take 1 (one) tablet by mouth once daily 1 refill by 01/19/2022 * sevelamer carbonate (RENVELA) 0.8 GM pwd packet(Started 01/19/2021) Take 1 (one) packet by mouth 3 times daily with meals Reasons: High Amount of Phosphate in the Blood 2 refills by 01/19/2022 * lisinopril (PRINIVIL; ZESTRIL) 20 MG tablet(Started 10/05/2021) Take 20 mg by mouth every evening * patiromer (VELTASSA) 8.4 g packet(Started 11/06/2021) Take 1 (one) packet by mouth daily with food Measure 1/3 cup of water. Pour half into a glass, add Veltassa and stir. Add the remaining half and stir. The mixture will look cloudy. Add more water to the mixture as needed for desired consistency. Drink immediately. If powder remains in the glass after drinking, add more water, stir and drink immediately. Repeat as needed. Avoid taking other oral medications 3 hours before or after.?Store packets in refrigerator. 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 Resolved Problems Problem Noted Date Diagnosed Date Resolved Date Fever 06/28/2020 07/12/2020 Immunizations * COVID AMANDO PRIMARY 18+YR(Given 07/05/2020) * FLU VACCINE QUAD IIV4 PF ID(Given 01/23/2020) * HEP B VACCINE, ADULT 3 DOSE(Given 01/23/2020, 10/04/2019, 09/16/2019, 08/11/2019) * PNEUMOCOCCAL PCV VACCINE(Given 01/23/2020) * Pneumococcal Pcv13 Conj(Given 10/25/2019) Social History Tobacco Use Types Packs/Day Years Used Date Smoking Tobacco: Former Cigarettes 0.5 10 0 01/13/2011 - 01/13/2021 Smokeless Tobacco: Never Tobacco Cessation:Counseling Given: No Alcohol Use Standard Drinks/Week Comments Not Currently 0 (1 standard drink = 0.6 oz pur e alcohol) occasional AUDIT-C Answer Date Recorded Q1: How often do you have a drink containing alc ohol? Never 11/01/2021 Average Number of Drinks Not on file 022 Frequency of Binge Drinking Not on file 10/18 PHQ-2 Answer Date Recorded PHQ2 TOTAL SCORE 0 02/07/2021 Sex and Gender Information Value Date Recorded Sex Assigned at Not on file Gender Identity Not on file Sexual Orientation Not on file Last Filed Vital Signs Vital Sign Reading Time Taken Comments Blood Pressure 151/91 02/04/2022 1:21 PM CDT Pulse 74 02/04/2022 1:21 PM CDT Temperature 36.8 C (98.3 F) 02/04/2022 1:21 PM CDT Respiratory Rate 18 02/04/2022 1:21 PM CDT Oxygen Saturation 100% 02/04/2022 1:21 PM CDT Inhaled Oxygen Concentration 21% 10:20 AM CDT Weight 50.7 kg (111 lb 12.8 oz) 02/04/2022 1:21 PM CDT Height 162.6 cm (5' 4 ) 02/04/2022 1:21 PM CDT Body Mass Index 19.19 02/04/2022 1:21 PM CDT Medical Devices Implanted Type Area Outpatient Pharmacy Manager Device Identifier Shelf Expiration Date Model / Serial / Lot Kit Durathane Drflw Embosafe Chrnc Dlys Implanted:Qty: 1 on 06/29/2020 at [facility] Right: Chest Wall [employer] 08/17/2022 [id number] / / [id number] Kerwin Bellfe Chrnc Dlys Implanted:Qty: 1 on 01/17/2021 at [facility] Right: Chest Wall [employer] 05/20/2023 [id number] / / [id number] Description: Peritoneal Dialysis Catheter Implanted:Qty: 1 on 03/12/2021 by Cr Titus MD at [facility] N/A: Abdomen 05/17/2024 [id number] / / [id number] Procedures * IR CENTRAL LINE REMOVAL(Performed 03/11/2022) Performed for End stage renal disease (HCC) * VAS DIALYSIS EXIST ACCESS SCAN(Performed 02/04/2022) Performed for Status post creation of arteriovenous fistula, End-stage renal disease ([facility]) * CREATION ARTERIOVENOUS (AV) FISTULA WITH/WITHOUT GRAFT(Performed 12/13/2021) Performed for End stage renal disease ([facility]) * POTASSIUM WHOLE BLD(Performed 12/13/2021) Performed for End-stage renal disease ([facility]), Pre-op evaluation * CARDIAC EKG ORDER(Performed 11/07/2021) * CARDIAC EKG ORDER(Performed 11/07/2021) * GLUCOSE - POINT OF CARE(Performed 11/06/2021) * GLUCOSE - POINT OF CARE(Performed 11/06/2021) * BASIC METABOLIC PANEL (CALCIUM TOTAL)(Performed 11/06/2021) * EKG 12-LEAD(Performed 11/06/2021) Performed for Hyperkalemia * GLUCOSE - POINT OF CARE(Performed 11/06/2021) * EKG 12-LEAD(Performed 11/06/2021) Performed for End-stage renal disease (HCC) * POTASSIUM WHOLE BLD(Performed 11/06/2021) Performed for End-stage renal disease (HCC) * BASIC METABOLIC PANEL (CALCIUM TOTAL)(Performed 11/06/2021) Performed for End-stage renal disease (HCC) * CARDIAC EKG ORDER(Performed 11/04/2021) * TROPONIN I(Performed 11/02/2021) * URINALYSIS REFLEX TO MICROSCOPIC NO CULTURE(Performed 11/01/2021) * EKG 12-LEAD(Performed 11/01/2021) Performed for Dizziness * TROPONIN I(Performed 11/01/2021) * COMPREHENSIVE METABOLIC PANEL(Performed 11/01/2021) * CBC W AUTO DIFFERENTIAL(Performed 11/01/2021) * XR CHEST 2VW(Performed 11/01/2021) Performed for Dizziness * VAS LEFT MAPPING FOR HEMODIALYSIS(Performed 09/27/2021) Performed for End-stage renal disease ([facility]) * CULTURE FUNGUS OTHER+FUNGUS SMEAR(Performed 07/23/2021) Performed for Peritonitis associated with peritoneal dialysis, subsequent encounter ([facility]) * CULTURE ANAEROBE(Performed 07/23/2021) Performed for Peritonitis associated with peritoneal dialysis, subsequent encounter ([facility]) * CULTURE TISSUE+GRAM STAIN(Performed 07/23/2021) Performed for Peritonitis associated with peritoneal dialysis, subsequent encounter ([facility]) * PATHOLOGY TISSUE(Performed 07/23/2021) Performed for ESRD (end stage renal disease) ([facility]) * CULTURE FUNGUS OTHER+FUNGUS SMEAR(Performed 07/23/2021) Performed for Abdominal pain, generalized * CULTURE ANAEROBE(Performed 07/23/2021) Performed for Abdominal pain, generalized * CULTURE TISSUE+GRAM STAIN(Performed 07/23/2021) Performed for Abdominal pain, generalized * CA LAP INSERT TUNNEL IP CATH(Performed 07/23/2021) Performed for ESRD (end stage renal disease) ([facility]) * ENDOTRACHEAL TUBE NOTE(Performed 07/23/2021) * BASIC METABOLIC PANEL (CALCIUM TOTAL)(Performed 07/23/2021) Performed for Pre-transplant evaluation for kidney transplant * PHOSPHORUS BLOOD(Performed 07/23/2021) Performed for Preoperative examination * CBC W AUTO DIFFERENTIAL(Performed 07/23/2021) Performed for Preoperative examination * CA LAP INSERT TUNNEL IP CATH(Performed 06/11/2021) Performed for Disorder of peritoneal dialysis catheter, initial encounter * ENDOTRACHEAL TUBE NOTE(Performed 06/11/2021) * CBC W/O DIFFERENTIAL(Performed 06/11/2021) Performed for End-stage renal disease ([facility]) * BASIC METABOLIC PANEL (CALCIUM TOTAL)(Performed 06/11/2021) Performed for End-stage renal disease ([facility]) * CARDIAC EKG ORDER(Performed 05/02/2021) * URINALYSIS W/MICROSCOPIC NO CULTURE(Performed 05/01/2021) Performed for Pre-transplant evaluation for kidney transplant * CREATININE URINE RANDOM(Performed 05/01/2021) Performed for Pre-transplant evaluation for kidney transplant * PROTEIN URINE RANDOM QUANTITATIVE(Performed 05/01/2021) Performed for Pre-transplant evaluation for kidney transplant * ECHO STRESS W DOBUTAMINE(Performed 05/01/2021) Performed for Pre-transplant evaluation for kidney transplant * BLOOD TYPE ABO+ RH PANEL(Performed 05/01/2021) Performed for Pre-transplant evaluation for kidney transplant * HLA ANTIBODY SCREEN LUM CLASS 2 SAB(Performed 05/01/2021) Performed for Pre-transplant evaluation for kidney transplant * HLA ANTIBODY SCREEN LUM CLASS 1 SAB(Performed 05/01/2021) Performed for Pre-transplant evaluation for kidney transplant * HLA TYPING DNA LOW RESOLUTION DR,DQ(Performed 05/01/2021) Performed for Pre-transplant evaluation for kidney transplant * HLA TYPING DNA LOW RESOLUTION A,B,C(Performed 05/01/2021) Performed for Pre-transplant evaluation for kidney transplant * TYPE + SCREEN PANEL(Performed 05/01/2021) Performed for Pre-transplant evaluation for kidney transplant * HIV-1 HIV-2 ANTIBODY + HIV P24 AG PANEL(Performed 05/01/2021) Performed for Pre-transplant evaluation for kidney transplant * HEPATITIS A ANTIBODY(Performed 05/01/2021) Performed for Pre-transplant evaluation for kidney transplant * QUANTIFERON-TB GOLD PLUS 4-TUBE(Performed 05/01/2021) Performed for Pre-transplant evaluation for kidney transplant * RUBELLA ANTIBODY IGG TITER(Performed 05/01/2021) Performed for Pre-transplant evaluation for kidney transplant * PTH INTACT W/O CALCIUM(Performed 05/01/2021) Performed for Pre-transplant evaluation for kidney transplant * TOXOPLASMA GONDII ANTIBODY IGG(Performed 05/01/2021) Performed for Pre-transplant evaluation for kidney transplant * STRONGYLOIDES ANTIBODY IGG(Performed 05/01/2021) Performed for Pre-transplant evaluation for kidney transplant * CANNABINOID SCREEN BLOOD(Performed 05/01/2021) Performed for Pre-transplant evaluation for kidney transplant * IRON BLOOD(Performed 05/01/2021) Performed for Pre-transplant evaluation for kidney transplant * FERRITIN(Performed 05/01/2021) Performed for Pre-transplant evaluation for kidney transplant * TRANSFERRIN(Performed 05/01/2021) Performed for Pre-transplant evaluation for kidney transplant * VITAMIN D 25-HYDROXY(Performed 05/01/2021) Performed for Pre-transplant evaluation for kidney transplant * URIC ACID BLOOD(Performed 05/01/2021) Performed for Pre-transplant evaluation for kidney transplant * VARICELLA ZOSTER ANTIBODY IGG(Performed 05/01/2021) Performed for Pre-transplant evaluation for kidney transplant * MUMPS ANTIBODY IGG(Performed 05/01/2021) Performed for Pre-transplant evaluation for kidney transplant * RUBEOLA ANTIBODY IGG(Performed 05/01/2021) Performed for Pre-transplant evaluation for kidney transplant * OPIATES BLOOD(Performed 05/01/2021) Performed for Pre-transplant evaluation for kidney transplant * COCAINE METABOLITE BLOOD QUANT(Performed 05/01/2021) Performed for Pre-transplant evaluation for kidney transplant * AMPHETAMINE BLOOD CONFIRMATION(Performed 05/01/2021) Performed for Pre-transplant evaluation for kidney transplant * NICOTINE + METABOLITES BLOOD(Performed 05/01/2021) Performed for Pre-transplant evaluation for kidney transplant * ALCOHOL ETHYL BLOOD(Performed 05/01/2021) Performed for Pre-transplant evaluation for kidney transplant * SYPHILIS ANTIBODY CASCADING REFLEX(Performed 05/01/2021) Performed for Pre-transplant evaluation for kidney transplant * HEMOGLOBIN A1C(Performed 05/01/2021) Performed for Pre-transplant evaluation for kidney transplant * TITO-MYLES VIRUS ANTIBODY TO VCA IGG(Performed 05/01/2021) Performed for Pre-transplant evaluation for kidney transplant * CYTOMEGALOVIRUS ANTIBODY IGG BLOOD(Performed 05/01/2021) Performed for Pre-transplant evaluation for kidney transplant * HEPATITIS C ANTIBODY(Performed 05/01/2021) Performed for Pre-transplant evaluation for kidney transplant * HEPATITIS B SURFACE ANTIBODY(Performed 05/01/2021) Performed for Pre-transplant evaluation for kidney transplant * HEPATITIS B CORE ANTIBODY TOTAL(Performed 05/01/2021) Performed for Pre-transplant evaluation for kidney transplant * HEPATITIS B SURFACE ANTIGEN W RFLX CONFIRMATION(Performed 05/01/2021) Performed for Pre-transplant evaluation for kidney transplant * LIPID PROFILE(Performed 05/01/2021) Performed for Pre-transplant evaluation for kidney transplant * PHOSPHORUS BLOOD(Performed 05/01/2021) Performed for Pre-transplant evaluation for kidney transplant * COMPREHENSIVE METABOLIC PANEL(Performed 05/01/2021) Performed for Pre-transplant evaluation for kidney transplant * CBC W AUTO DIFFERENTIAL(Performed 05/01/2021) Performed for Pre-transplant evaluation for kidney transplant * XR PANOREX(Performed 05/01/2021) Performed for Pre-transplant evaluation for kidney transplant * XR CHEST 2VW(Performed 05/01/2021) Performed for Pre-transplant evaluation for kidney transplant * US RETROPERITONEAL COMPLETE(Performed 05/01/2021) Performed for Pre-transplant evaluation for kidney transplant * CARDIAC EKG ORDER(Performed 03/15/2021) * ENDOTRACHEAL TUBE NOTE(Performed 03/12/2021) * CA LAP INSERT TUNNEL IP CATH(Performed 03/12/2021) Performed for ESRD (end stage renal disease) ([facility]) * POTASSIUM WHOLE BLD(Performed 03/12/2021) Performed for Pre-op evaluation * BASIC METABOLIC PANEL (CALCIUM TOTAL)(Performed 03/12/2021) Performed for Pre-op evaluation * CBC W/O DIFFERENTIAL(Performed 03/05/2021) Performed for Pre-op evaluation * BASIC METABOLIC PANEL (CALCIUM TOTAL)(Performed 03/05/2021) Performed for Pre-op evaluation * TYPE + SCREEN PANEL(Performed 03/05/2021) Performed for Pre-op evaluation * EKG 12-LEAD(Performed 03/05/2021) Performed for Pre-op evaluation * IR PERITONEAL TUNNEL CATH PLACE(Performed 02/25/2021) Performed for ESRD (end stage renal disease) ([facility]) * MAGNESIUM BLOOD(Performed 01/19/2021) Performed for End-stage renal disease (HCC), Peritonitis (HCC) * RENAL FUNCTION PANEL(Performed 01/19/2021) Performed for End-stage renal disease (HCC), Peritonitis (HCC) * CBC W AUTO DIFFERENTIAL(Performed 01/19/2021) Performed for End-stage renal disease (HCC), Peritonitis (HCC) * CULTURE BLOOD(Performed 01/18/2021) * CULTURE BLOOD(Performed 01/18/2021) * XR ABDOMEN KUB PORTABLE(Performed 01/18/2021) Performed for Ileus (HCC) * HEMODIALYSIS INPATIENT(Performed 01/18/2021) * MAGNESIUM BLOOD(Performed 01/18/2021) Performed for End-stage renal disease (HCC), Peritonitis (HCC) * RENAL FUNCTION PANEL(Performed 01/18/2021) Performed for End-stage renal disease (HCC), Peritonitis (HCC) * CBC W AUTO DIFFERENTIAL(Performed 01/18/2021) Performed for End-stage renal disease (HCC), Peritonitis (HCC) * IR CENTRAL LINE INSERT TUNNEL(Performed 01/17/2021) Performed for End-stage renal disease (HCC) * CARDIAC EKG ORDER(Performed 01/17/2021) * IR TUNNEL PERITONEAL CATH REMOVE(Performed 01/17/2021) Performed for End-stage renal disease (HCC) * MAGNESIUM BLOOD(Performed 01/17/2021) Performed for End-stage renal disease (HCC), Peritonitis (HCC) * RENAL FUNCTION PANEL(Performed 01/17/2021) Performed for End-stage renal disease (HCC), Peritonitis (HCC) * CBC W AUTO DIFFERENTIAL(Performed 01/17/2021) Performed for End-stage renal disease (HCC), Peritonitis (HCC) * DIFFERENTIAL MANUAL FLUID(Performed 01/16/2021) Performed for End-stage renal disease (HCC) * CELL COUNT W DIFFERENTIAL FLUID(Performed 01/16/2021) Performed for End-stage renal disease (HCC) * CULTURE BLOOD(Performed 01/16/2021) * MAGNESIUM BLOOD(Performed 01/16/2021) Performed for End-stage renal disease (HCC), Peritonitis (HCC) * RENAL FUNCTION PANEL(Performed 01/16/2021) Performed for End-stage renal disease (HCC), Peritonitis (HCC) * CBC W AUTO DIFFERENTIAL(Performed 01/16/2021) Performed for End-stage renal disease (HCC), Peritonitis (HCC) * CULTURE BLOOD(Performed 01/16/2021) * XR ABDOMEN KUB PORTABLE(Performed 01/16/2021) Performed for Ileus (HCC) * ECHO COMPLETE W BUBBLE STUDY(Performed 01/15/2021) Performed for Congenital anomaly of heart (HCC) * XR ABDOMEN KUB PORTABLE(Performed 01/15/2021) Performed for Ileus (HCC) * CULTURE BLOOD(Performed 01/15/2021) Performed for Peritonitis (HCC) * DIFFERENTIAL MANUAL(Performed 01/15/2021) Performed for End-stage renal disease (HCC), Peritonitis (HCC) * MAGNESIUM BLOOD(Performed 01/15/2021) Performed for End-stage renal disease (HCC), Peritonitis (HCC) * RENAL FUNCTION PANEL(Performed 01/15/2021) Performed for End-stage renal disease (HCC), Peritonitis (HCC) * CBC W AUTO DIFFERENTIAL(Performed 01/15/2021) Performed for End-stage renal disease (HCC), Peritonitis (HCC) * CULTURE BLOOD(Performed 01/15/2021) Performed for Peritonitis (HCC) * LACTIC ACID BLOOD(Performed 01/14/2021) Performed for End-stage renal disease (HCC), Peritonitis (HCC) * TROPONIN I(Performed 01/14/2021) Performed for Chest pain at rest * BASIC METABOLIC PANEL (CALCIUM TOTAL)(Performed 01/14/2021) Performed for End-stage renal disease (HCC) * CBC W/O DIFFERENTIAL(Performed 01/14/2021) Performed for Anemia, unspecified type * LACTIC ACID BLOOD(Performed 01/14/2021) Performed for End-stage renal disease (HCC), Peritonitis (HCC) * TROPONIN I(Performed 01/14/2021) Performed for End-stage renal disease (HCC), Chest pain at rest * TROPONIN I(Performed 01/14/2021) Performed for Chest pain at rest * CT ABDOMEN PELVIS WO CONTRAST(Performed 01/14/2021) Performed for End-stage renal disease (HCC), Abdominal pain, generalized, Peritonitis (HCC) * SARS-COV-2 (COVID-19) IN HOUSE(Performed 01/14/2021) Performed for Abdominal pain, generalized * XR CHEST 1VW PORTABLE(Performed 01/14/2021) Performed for End-stage renal disease (HCC), Chest pain at rest * DIFFERENTIAL MANUAL(Performed 01/14/2021) Performed for End-stage renal disease (HCC), Peritonitis (HCC) * LACTIC ACID BLOOD(Performed 01/14/2021) Performed for End-stage renal disease (HCC), Peritonitis (HCC) * CBC W AUTO DIFFERENTIAL(Performed 01/14/2021) Performed for End-stage renal disease (HCC), Peritonitis (HCC) * CULTURE BLOOD(Performed 01/14/2021) Performed for End-stage renal disease (HCC) * TROPONIN I(Performed 01/14/2021) Performed for End-stage renal disease (HCC), Chest pain at rest * MAGNESIUM BLOOD(Performed 01/14/2021) Performed for End-stage renal disease (HCC), Peritonitis (HCC) * RENAL FUNCTION PANEL(Performed 01/14/2021) Performed for End-stage renal disease (HCC), Peritonitis (HCC) * CULTURE BLOOD FUNGUS(Performed 01/14/2021) Performed for End-stage renal disease (HCC) * CULTURE BLOOD(Performed 01/14/2021) Performed for End-stage renal disease (HCC) * EKG 12-LEAD(Performed 01/14/2021) Performed for Chest pain at rest * PATHOLOGY SMEAR BODY FLUID(Performed 01/13/2021) Performed for End-stage renal disease (HCC) * DIFFERENTIAL MANUAL FLUID(Performed 01/13/2021) Performed for End-stage renal disease (HCC) * CELL COUNT W DIFFERENTIAL FLUID(Performed 01/13/2021) Performed for End-stage renal disease (HCC) * CULTURE FUNGUS OTHER+FUNGUS SMEAR(Performed 01/13/2021) Performed for End-stage renal disease (HCC) * GRAM STAIN (LAB ORDERED)(Performed 01/13/2021) Performed for End-stage renal disease (HCC) * CULTURE ANAEROBE(Performed 01/13/2021) Performed for End-stage renal disease (HCC) * CULTURE FLUID+GRAM STAIN(Performed 01/13/2021) Performed for End-stage renal disease (HCC) * XR ABDOMEN KUB(Performed 01/13/2021) Performed for Abdominal pain, generalized * LACTIC ACID BLOOD(Performed 01/13/2021) * PT-INR SLH(Performed 01/13/2021) * DIFFERENTIAL MANUAL(Performed 01/13/2021) * LIPASE BLOOD(Performed 01/13/2021) * COMPREHENSIVE METABOLIC PANEL(Performed 01/13/2021) * CBC W AUTO DIFFERENTIAL(Performed 01/13/2021) * HIV-1 HIV-2 ANTIBODY + HIV P24 AG PANEL(Performed 01/13/2021) * HEPATITIS C AB SCREEN RFLX NAAT QUANT(Performed 01/13/2021) * IR CENTRAL LINE REMOVAL(Performed 10/01/2020) Performed for End stage renal disease (HCC) * IR PERITONEAL TUNNEL CATH PLACE(Performed 08/22/2020) Performed for End-stage renal disease (HCC) * PHOSPHORUS BLOOD(Performed 07/02/2020) * MAGNESIUM BLOOD(Performed 07/02/2020) * BASIC METABOLIC PANEL (CALCIUM TOTAL)(Performed 07/02/2020) * CBC W/O DIFFERENTIAL(Performed 07/02/2020) * PHOSPHORUS BLOOD(Performed 07/01/2020) * MAGNESIUM BLOOD(Performed 07/01/2020) * BASIC METABOLIC PANEL (CALCIUM TOTAL)(Performed 07/01/2020) * CBC W/O DIFFERENTIAL(Performed 07/01/2020) * PATHOLOGY TISSUE(Performed 06/30/2020) Performed for End-stage renal disease (HCC) * REMOVAL FOREIGN BODY (ANY AREA)(Performed 06/30/2020) Performed for Peritonitis ([facility]) * PHOSPHORUS BLOOD(Performed 06/30/2020) * MAGNESIUM BLOOD(Performed 06/30/2020) * BASIC METABOLIC PANEL (CALCIUM TOTAL)(Performed 06/30/2020) * CBC W/O DIFFERENTIAL(Performed 06/30/2020) * TYPE + SCREEN PANEL(Performed 06/29/2020) * CULTURE BLOOD FUNGUS(Performed 06/29/2020) * IR CENTRAL LINE INSERT TUNNEL(Performed 06/29/2020) Performed for Peritonitis associated with peritoneal dialysis, initial encounter ([facility]) * CT ABDOMEN PELVIS WO CONTRAST(Performed 06/29/2020) Performed for Fever, unspecified fever cause, Peritonitis associated with peritoneal dialysis, initial encounter ([facility]) * HEMODIALYSIS INPATIENT(Performed 06/29/2020) * CARDIAC EKG ORDER(Performed 06/29/2020) * ERYTHROCYTE SEDIMENTATION RATE(Performed 06/29/2020) * C-REACTIVE PROTEIN(Performed 06/29/2020) * VITAMIN D 25-HYDROXY(Performed 06/29/2020) * PTH INTACT W/O CALCIUM(Performed 06/29/2020) * PHOSPHORUS BLOOD(Performed 06/29/2020) * MAGNESIUM BLOOD(Performed 06/29/2020) * BASIC METABOLIC PANEL (CALCIUM TOTAL)(Performed 06/29/2020) * CBC W/O DIFFERENTIAL(Performed 06/29/2020) * HEPATITIS B SURFACE ANTIBODY(Performed 06/28/2020) * HEPATITIS B SURFACE ANTIGEN W RFLX CONFIRMATION(Performed 06/28/2020) * CULTURE FUNGUS OTHER+FUNGUS SMEAR(Performed 06/28/2020) Performed for Peritonitis associated with peritoneal dialysis, initial encounter ([facility]), Fever, unspecified fever cause * TROPONIN I(Performed 06/28/2020) * SARS-COV-2 (COVID-19)+INFLU A+B PCR RAPID(Performed 06/28/2020) * SUSCEPTIBILITY FUNGUS/YEAST(Performed 06/28/2020) Performed for Fever, unspecified fever cause * CULTURE FLUID+GRAM STAIN(Performed 06/28/2020) Performed for Fever, unspecified fever cause * PATHOLOGY SMEAR BODY FLUID(Performed 06/28/2020) * DIFFERENTIAL MANUAL FLUID(Performed 06/28/2020) * CELL COUNT W DIFFERENTIAL FLUID(Performed 06/28/2020) * CULTURE ANAEROBE(Performed 06/28/2020) Performed for Fever, unspecified fever cause * COMPREHENSIVE METABOLIC PANEL(Performed 06/28/2020) * CBC W AUTO DIFFERENTIAL(Performed 06/28/2020) * XR CHEST 1VW(Performed 06/28/2020) Performed for Fever, unspecified fever cause * CULTURE BLOOD(Performed 06/28/2020) * BLOOD GASES ELIDA(Performed 06/28/2020) * TROPONIN I(Performed 06/28/2020) * LACTIC ACID BLOOD REFLEX TO REPEAT(Performed 06/28/2020) * CULTURE BLOOD(Performed 06/28/2020) * IR CENTRAL LINE REMOVAL(Performed 09/14/2019) Performed for End stage renal disease (HCC) * CREATION ARTERIOVENOUS (AV) FISTULA WITH/WITHOUT GRAFT Performed for End stage renal disease (HCC) Results * IR CENTRAL LINE REMOVAL (03/11/2022 11:33 AM CAUL PULLER) Only the most recent of3 resultswithin the time period is included. Anatomical Region Laterality Modality X-Ray Angiograph y Narrative 03/11/2022 11:23 AM CAUL PULLER Obinna Hassan MD 03/11/2022 11:30 AM Shaggy Daniel 1990 [id number] Interventional Nephrology Procedure Date: 03/11/2022 Attending Surgeon and performing the procedure: Obinna Hassan MD filter plant operator: Giancarlo Huang MD Brief history and physical and medical indication for the procedure: The patient is a 31-year-old man with end-stage renal disease who is dialyzing through a left brachial artery cephalic vein AV fistula. The patient has been referred for the removal of the right internal jugular vein tunneled dialysis catheter. EXAM: There were no vitals taken for this visit. General appearance: alert, cooperative, no distress Chest: The patient has a right internal jugular vein tunneled dialysis catheter with a tunnel exit site that are dry and without drainage. It is a dura flow catheter by Angiodynamics. Heart: Regular rate, normal S1 and S2, without murmurs Lungs: breath sounds normal and symmetric; no wheezes Extremities: no cyanosis or edema. Indications for the procedure: 1. End-stage renal disease on dialysisProcedures Performed: 1. CATHETER PLACEMENT: REMOVAL OF TUNNELED CENTRALLY INSERTED CVC; 55213 Findings: 1. A 19 cm tip to cuff Duraflow catheter was recovered in its entirety and intact from the right internal jugular vein. Description of the procedure: After informed consent was obtained the patient was placed in the supine position. Prior to beginning the procedure, universal protocol and time-out were performed to confirm the patient's identity and the planned procedure. Maximum sterile barriers including cap, mask, hand hygiene, sterile gloves, sterile gown, large sterile drape, sterile gel, sterile ultrasound probe cover, and 2% chlorhexidine for cutaneous antisepsis were used.The chest, neck, catheter were prepared with chlorhexadine and draped in appropriate sterile fashion. The cuff was located by palpation. The exit site and tunnel tract up to the cuff were infiltrated with 1% lidocaine. Blunt dissection was used to release the cuff from the fibrous sheath and the catheter was removed. Pressure was applied for 10 minutes over the right internal jugular venotomy hemostasis obtained. Mr. Shaggy Daniel tolerated the procedure well with 1% lidacaine for local anesthesia. RECOMMENDATIONS: 1. Continue using left brachial artery cephalic vein AV fistula for renal replacement therapy. 2. May clean the exit site with soap water as needed otherwise keep it open to air all other times. 3. Remove dressing in 6 hours from now. Thank you for allowing me the privilege to participate in the care of this patient. Sincerely, Obinna Hassan MD 03/11/2022 11:24 AM [facility] VAC [phone] Merlin Quezada MD [facility] Merlin Quezada MD IR ORDERABLES * VAS DIALYSIS EXIST ACCESS SCAN (02/04/2022 11:34 AM CDT) Anatomical Region Laterality Modality Lower Extremity Intravascular Ul trasound 02/04/2022 10:5 8 AM CDT Narrative Procedure Note Montez Iverson MD - 02/04/2022 Galen Wallace MD VASCULAR LAB ORDER RED * POTASSIUM WHOLE BLD (12/13/2021 6:36 AM CDT) Only the most recent of3 resultswithin the time period is included. Potassium Whole Blood 5.3 3.5 - 5.5 mmol/L 12/13/2021 6:49 AM CDT [facility] Blood WHOLE BLOOD SPECIMEN / Unknown Venipuncture / Unknown 12/13/2021 6:36 AM CDT 12/13/2021 6:40 AM CDT Valarie Henry FIRE PREVENTION SPECIALIST-PHARMACY OPERATIONS SPECIALIST LAB - BENITA HOLLIE ORDERABLES [address] [address], [facility] [phone] * CARDIAC EKG ORDER (11/07/2021 11:57 AM CDT) Only the most recent of7 resultswithin the time period is included. Narrative 11/07/2021 11:57 AM CDT Ordered by an unspecified provider. Scanned Document CARDIAC SERVICES ORD ERABLES * GLUCOSE - POINT OF CARE (11/06/2021 3:00 PM CDT) Only the most recent of3 resultswithin the time period is included. Glucose WB/POC 104 70 - 115 mg/dL 11/07/2021 6:28 AM CDT [facility] Specimen Type Cap Fingerstick 2021 6:28 AM CDT [facility] Blood BLOOD SPECIMEN / Unknown 11/06/2021 3:00 PM CDT 11/07/2021 6:28 AM CDT Yvonne Gordon MD LAB - POINT OF CARE ORDERABLES [facility] [address] [place] [address], [facility] [phone] * (ABNORMAL) BASIC METABOLIC PANEL (CALCIUM TOTAL) (11/06/2021 12:43 PM CDT) Only the most recent of11 resultswithin the time period is included. BUN 38(H) 7 - 26 mg/dL 11/06/2021 1:17 PM [facility] Creatinine 8.92(H) 0.71 - 1.16 mg/dL 11/06/2021 1:17 PM [facility] Sodium 141 136 - 145 mmol/L 11/06/2021 1:17 PM [facility] Potassium 4.4 3.5 - 4.5 mmol/L 11/06/2021 1:17 PM [facility] Chloride 99 98 - 107 mmol/L 11/06/2021 1:17 PM [facility] CO2 26 22 - 29 mmol/L 11/06/2021 1:17 PM [facility] Glucose 183(H) 70 - 115 mg/dL 11/06/2021 1:17 PM [facility] Calcium 9.8 8.4 - 10.2 mg/dL 11/06/2021 1:17 PM [facility] Anion Gap 20(H) 8 - 18 11/06/2021 1:17 PM [facility] BUN/Creatinine Ratio 4(L) 7 - 23 11/06/2021 1:17 PM [facility] Osmolality Calculated 306(H) 270 - 300 mOsm/kg 11/06/2021 1:17 PM [facility] eGFR by CKD-EPI 7(L) >=90 mL/min/1.7 3 m2 11/06/2021 1:17 PM [facility] Blood BLOOD SPECIMEN / Unknown Venipuncture / Unknown 11/06/2021 12:43 PM CDT 11/06/2021 12:46 PM CDT Yuan Sorto PA-C LAB - CHEM ISTRY ORDERABLES [facility] [address] [place] [address], [facility] [phone] * EKG 12-LEAD (11/06/2021 12:26 PM CDT) Only the most recent of5 resultswithin the time period is included. Ventricular Rate 74 BPM [facility] Atrial Rate 74 BPM [facility] P-R Interval 114 ms [facility] QRS Duration ms 90 ms [facility] Q-T Interval ms 372 ms [facility] QTC Calculation (Bezet) 412 ms [facility] Calculated P [place] -4 degrees [facility] Calculated R [place] -9 degrees [facility]USE Calculated T [place] 172 degrees [facility] Interpretation EKG NORMAL SINUS RHYTHM left ventricular hypertrophy with repolarization abnormality ST & MARKED T WAVE ABNORMALITY, CONSIDER ANTEROLATERAL ISCHEMIA T wave inversion, consider inferior ischemia ABNORMAL ECG WHEN COMPARED WITH ECG OF 06-NOV-2021 08:53, NO SIGNIFICANT CHANGE WAS FOUND Confirmed by MD Libia., Taylor ([id number]) on 11/06/2021 10:35:30 PM [facility] 11/06/2021 12:2 6 PM CDT 11/06/2021 10:35 PM CDT Gagandeep Best MD ECG ORDERABLES Performing Organization Address [facility] de Phone Number [facility] * (ABNORMAL) TROPONIN I (11/02/2021 3:16 AM CDT) Only the most recent of8 resultswithin the time period is included. [facility] Troponin I 0.079(H) <0.032 ng/mL 11/02/2021 3:57 AM CDT [facility] Blood BLOOD SPECIMEN / Unknown Venipuncture / Unknown 11/02/2021 3:16 AM CDT 11/02/2021 3:22 AM CDT Jessica Chan MD LAB - CHEMISTRY KRISTA CAREY Performing Organization Address [facility]/ZIP Co de Phone Number [facility] [address] [place] [address] [phone] * (ABNORMAL) URINALYSIS REFLEX TO MICROSCOPIC NO CULTURE (11/01/2021 9:22 PM CDT) Color UA Straw Straw, Yellow 11/01/2021 10:07 PM [facility] Clarity UA Clear Clear 11/01/2021 10:07 PM [facility] Specific [place] UA 1.008 1.005 - 1.030 11/01/2021 10:07 PM [facility] pH UA 9.0(H) 5.0 - 8.0 pH 11/01/2021 10:07 PM [facility] Protein UA 2+(A) Negative 11/01/2021 10:07 PM [facility] Glucose UA 1+(A) Negative 11/01/2021 10:07 PM [facility] Ketone UA Negative Negative 11/01/2021 10:07 PM [facility] Bilirubin UA Negative Negative 11/01/2021 10:07 PM [facility] Blood UA Negative Negative 11/01/2021 10:07 PM [facility] Nitrite UA Negative Negative 11/01/2021 10:07 PM [facility] Leukocyte Esterase Negative Negative 11/01/2021 10:07 PM [facility] Urobilinogen UA Negative Negative mg/dL 11/01/2021 10:07 PM [facility] RBC UA 3-5 None Seen, 0-2, 3-5 /HPF 11/01/2021 10:07 PM [facility] WBC UA 0-5 None Seen, 0-5 /HPF 11/01/2021 10:07 PM [facility] Squamous Epithelial Cells UA 0-2 None Seen, 0-2, 3-5 /HPF 11/01/2021 10:07 PM [facility] Urine URINE SPECIMEN OBTAINED BY CLEAN CATCH PROCEDURE / Unknown Collection / Unknown 11/01/2021 9:22 PM CDT 11/01/2021 9:34 PM T [facility] - 11/01/2021 10:07 PM [facility] Salo Griggs PA-C LAB - URINALYSIS ORD ERABLES [facility] [address] [place] [address], [facility] [phone] * (ABNORMAL) CBC W AUTO DIFFERENTIAL (11/01/2021 9:00 PM CDT) Only the most recent of11 resultswithin the time period is included. WBC 6.8 3.5 - 10.5 10 3/uL 11/01/2021 9:24 PM [facility] RBC 4.12(L) 4.30 - 5.70 10 6/uL 11/01/2021 9:24 PM [facility] Hemoglobin 12.9 12.0 - 17.6 g/dL 11/01/2021 9:24 PM [facility] Hematocrit 36.8 35.2 - 51.7 % 11/01/2021 9:24 PM [facility] MCV 89.3 80.7 - 98.3 fL 11/01/2021 9:24 PM T [facility] MCH 31.3 26.7 - 34.0 pg 11/01/2021 9:24 PM T [facility] MCHC 35.1 30.8 - 35.9 g/dL 11/01/2021 9:24 PM [facility] Platelet Count 133(L) 150 - 400 10 3/uL 11/01/2021 9:24 PM [facility] RDW-SD 42.6 36.0 - 50.0 fL 11/01/2021 9:24 PM [facility] RDW-CV 13.1 11.2 - 14.8 % 11/01/2021 9:24 PM [facility] MPV 9.9 9.4 - 12.9 fL 11/01/2021 9:24 PM [facility] nRBC Absolute 0.00 0 10 3/uL 11/01/2021 9:24 PM [facility] nRBC Auto 0.0 0 /100 WBC 11/01/2021 9:24 PM [facility] Neutrophils % 64.4 35.0 - 70.0 % 11/01/2021 9:24 PM [facility] Lymphocytes % 23.3 20.0 - 43.0 % 11/01/2021 9:24 PM [facility] Monocytes % 7.8 5.0 - 13.0 % 11/01/2021 9:24 PM [facility] Eosinophils % 3.5 0.0 - 6.0 % 11/01/2021 9:24 PM [facility] Basophil % 0.7 0.0 - 2.0 % 11/01/2021 9:24 PM [facility] Neutrophils Absolute 4.39 1.60 - 7.00 10 3/uL 11/01/2021 9:24 PM [facility] Lymphocyte Absolute 1.59 1.10 - 3.90 10 3/uL 11/01/2021 9:24 PM [facility] Monocytes Absolute 0.53 0.26 - 1.07 10 3/uL 11/01/2021 9:24 PM [facility] Eosinophils Absolute 0.24 0.00 - 0.47 10 3/uL 11/01/2021 9:24 PM [facility] Basophils Absolute 0.05 0.00 - 0.08 10 3/uL 11/01/2021 9:24 PM [facility] Immature Granulocytes % 0.3 0.0 - 1.0 % 11/01/2021 9:24 PM [facility] Immature Granulocytes Absolute 0.02 11/01/2021 9:24 PM [facility] Immature Platelet Fraction 2.7 1.1 - 6.2 % 11/01/2021 9:24 PM [facility] Blood BLOOD SPECIMEN / Unknown Venipuncture / Unknown 11/01/2021 9:00 PM CDT 11/01/2021 9:05 PM CDT Salo Griggs PA-C LAB - HEMATOLOGY ORD ERABLES [facility] [address] [place] [address], [facility] [phone] * (ABNORMAL) COMPREHENSIVE METABOLIC PANEL (11/01/2021 9:00 PM CDT) Only the most recent of4 resultswithin the time period is included. BUN 47(H) 7 - 26 mg/dL 11/01/2021 9:30 PM [facility] Creatinine 12.27(H) 0.71 - 1.16 mg/dL 11/01/2021 9:30 PM [facility] Sodium 140 136 - 145 mmol/L 11/01/2021 9:30 PM [facility] Potassium 5.1(H) 3.5 - 4.5 mmol/L 11/01/2021 9:30 PM [facility] Chloride 97(L) 98 - 107 mmol/L 11/01/2021 9:30 PM [facility] CO2 26 22 - 29 mmol/L 11/01/2021 9:30 PM [facility] Glucose 119(H) 70 - 115 mg/dL 11/01/2021 9:30 PM [facility] Calcium 10.5(H) 8.4 - 10.2 mg/dL 11/01/2021 9:30 PM [facility] Protein Total 7.1 6.0 - 8.3 g/dL 11/01/2021 9:30 PM [facility] Albumin 4.4 3.4 - 5.0 g/dL 11/01/2021 9:30 PM [facility] Bilirubin Total 0.5 0.2 - 1.2 mg/dL 11/01/2021 9:30 PM [facility] Alkaline Phosphatase 62 40 - 150 U/L 11/01/2021 9:30 PM [facility] ALT 9 5 - 55 U/L 11/01/2021 9:30 PM [facility] AST 5 5 - 34 U/L 11/01/2021 9:30 PM [facility] Anion Gap 22(H) 8 - 18 11/01/2021 9:30 PM [facility] BUN/Creatinine Ratio 4(L) 7 - 23 11/01/2021 9:30 PM [facility] Osmolality Calculated 303(H) 270 - 300 mOsm/kg 11/01/2021 9:30 PM [facility] Albumin/Globulin Ratio 1.6 1.1 - 2.3 11/01/2021 9:30 PM CDT [facility] eGFR by CKD-EPI 5(L) >=90 mL/min/1. 73 m2 11/01/2021 9:30 PM CDT [facility] Blood BLOOD SPECIMEN / Unknown Venipuncture / Unknown 11/01/2021 9:00 PM CDT 11/01/2021 9:04 PM CDT Salo Griggs PA-C LAB - CHEMISTRY ORDE CHERRY [facility] [address] [place] [address], [facility] [phone] * XR CHEST PA AND LATERAL (11/01/2021 8:55 PM CDT) Only the most recent of2 resultswithin the time period is included. Anatomical Region Laterality Modality Chest Radiographic Jeferson ging 11/01/2021 9:21 PM CDT Impressions 11/02/2021 9:59 AM CDT FINDINGS/IMPRESSION: Lines and tubes: *Right internal jugular approach dialysis catheter terminates at the cavoatrial junction. There is no focal consolidation, pleural effusion, or pneumothorax. The cardiomediastinal silhouette is normal. Sternotomy wires are unchanged in alignment. Dictated by Christian Vega DO (radiology special procedure tech). I, Dr. ALY LEIGH MD have personally reviewed and interpreted this examination/study. This report was electronically signed by ALY LEIGH MD on 11/02/2021 9:59 AM . Narrative 11/02/2021 9:59 AM CDT EXAMINATION: XR CHEST 2VW HISTORY: R42: Dizziness COMPARISON: 05/01/2021 Procedure Note Ayl Leigh MD - 11/02/2021 EXAMINATION: XR CHEST 2VW HISTORY: R42: Dizziness COMPARISON: 05/01/2021 FINDINGS/IMPRESSION: Lines and tubes: *Right internal jugular approach dialysis catheter terminates at the cavoatrial junction. There is no focal consolidation, pleural effusion, or pneumothorax. The cardiomediastinal silhouette is normal. Sternotomy wires are unchangedin alignment. Dictated by Christian Vega DO (radiology special procedure tech). I, Dr. ALY LEIGH MD have personally reviewed and interpreted this examination/study. This report was electronically signed by ALY LEIGH MD on 11/02/2021 9:59 AM . Salo Griggs PA-C DIAGNOSTIC IMAGING O RDERABLES * VAS LEFT MAPPING FOR HEMODIALYSIS (09/27/2021 2:41 PM CDT) Anatomical Region Laterality Modality Intravascular Ul trasound 09/27/2021 2:11 PM CDT Narrative Procedure Note Carl Rivas MD - 09/27/2021 Galen Wallace MD VASCULAR LAB ORDER RED * CULTURE FUNGUS OTHER+FUNGUS SMEAR (07/23/2021 12:17 PM CDT) Only the most recent of4 resultswithin the time period is included. Culture No fungus isolated HEATHER 08/19/2021 9:[address] [facility] Fungus Stain No yeast or hyphae seen 08/19/2021 9:[address] [facility] Microbiology ABDOMEN AND PELVIS / Unknown Collection / Unknown 07/23/2021 12:17 PM CDT 07/23/2021 12:25 PM CDT Cr Titus MD LAB - MICROBIOLOGY O RDERABLES [facility] [address] [place] [address], [facility] [phone] * CULTURE TISSUE+GRAM STAIN (07/23/2021 12:17 PM CDT) Only the most recent of2 resultswithin the time period is included. Culture No growth HEATHER 07/26/2021 6:[address] [facility] Gram Stain Rare Polymorphonuclear cells 07/26/2021 6:[address] [facility] Gram Stain No organisms seen 022 6:[address] [facility] Microbiology ABDOMEN AND PELVIS / Unknown Collection / Unknown 07/23/2021 12:17 PM CDT 07/23/2021 12:25 PM CDT Cr Titus MD LAB - MICROBIOLOGY O RDCYNTHIABLES Performing Organization Address [facility] Co de Phone Number [facility] [address] [place] [address], [facility] [phone] * (ABNORMAL) CULTURE ANAEROBE (07/23/2021 12:17 PM CDT) Only the most recent of4 resultswithin the time period is included. Culture Light Cutibacterium (formerly Propionibacterium ) acnes(A) HEATHER 07/28/2021 8:[address] [facility] Microbiology ABDOMEN AND PELVIS / Unknown Collection / Unknown 07/23/2021 12:17 PM CDT 07/23/2021 12:25 PM CDT Cr Titus MD LAB - MICROBIOLOGY O RDKYLE Performing Organization Address [facility] Co de Phone Number [facility] [address] [facility] [place] [address], [facility] [phone] * PATHOLOGY TISSUE (07/23/2021 12:05 PM CDT) Only the most recent of2 resultswithin the time period is included. Case Report Surgical Pathology Report Case: [id number] Authorizing Provider: Cr Titus MD Collected: 07/23/2021 12:05 PM Ordering Location: [facility] Received: 07/23/2021 01:39 PM Pathologist: Erinn Boyer MD Specimen: Soft Tissue Mass, internal abdominal wall mass 07/25/2021 12:52 PM CDT [facility] Final Diagnosis Soft tissue, internal abdominal wall mass, excision (A): - Remote hemorrhage and fibrin thrombus 07/25/2021 12:52 PM CDT [facility] Microscopic Description and Comment Microscopic examination substantiates the diagnosis. 07/25/2021 12:52 PM CDT [facility] Clinical History 31 year old male with [place] syndrome and ESRD; nonfunctioning peritoneal dialysis catheter. He presents today for laparoscopic exploration with catheter revision 07/25/2021 12:52 PM CDT [facility] Gross Description The requisition and specimen label(s) are identified with the patient's name, Shaggy Daniel. Received in formalin, specimen A , are multiple red-brown disrupted tissue measuring 3.2 x 1.6 1.6 x 1.0 cm in aggregate with multiple staple lines. Sectioning shows is a 1 cm x 1 cm cystic cut surface with red-brown material within. Specimen is submitted entirely in A1-A3. CD 07/25/2021 12:52 PM CDT [facility] Disclaimer The performance characteristics of all immunohistochemical and indirect immunofluorescence stains (if any) cited in this report were determined by the Histopathology Laboratory of [facility]. Some of these tests were developed by our own laboratory and have not been cleared or approved by the US Food and Drug Administration. The FDA does not require this test to go through premarket FDA review. These tests are used for clinical purposes. They should not be regarded as investigational or for research. This laboratory is certified under the Clinical Laboratory Improvement Amendments (CLIA) as qualified to perform high complexity clinical laboratory testing. This case has been personally reviewed and interpreted by the attending (teaching) pathologist. 07/25/2021 12:52 PM CDT [facility] Embedded Images 07/25/2021 12:52 PM T [facility] Biopsy, Excision SOFT TISSUE MASS / Unknown 07/23/2021 12:05 PM CDT 07/23/2021 1:39 PM CDT Comment:Pre-op diagnosis: ESRD (end stage renal disease) Cr Titus MD LAB - PATHOLOGY/CYTO LOGY ORDERABLES [facility] [address] [place] [address], [facility] [phone] * ETT LINE PERFORMABLE (07/23/2021 11:33 AM CDT) Narrative Sweta May Anes Asst - 07/23/2021 11:33 AM CDT Sweta May Anes Asst 07/23/2021 11:34 AM Endotracheal Tube Placement: Patient Location: OR. Intubation Event Date/Time: 07/23/2021 11:22 AM Procedure: intubation (88318). Procedure Section: Sedation: IV sedation. Indications for Airway Management: airway protection Induction: standard IV Patient Position: supine Mask Ventilation: easy. Blade Type: Priscila Blade Size: 3 Laryngoscopy View: grade 1 (full cords) Intubation Adjuncts: stylet Tube: endotracheal tube Placement: oral Tube type: cuff - inflated Tube Size (MM): 8 Depth of Insertion (CM): 23 Measured From: teeth Number of Attempts: 1. Placement Verified By: direct visualization, bilateral breath sounds, chest auscultation and CO2 monitor Tube secured with: adhesive tape and ETT sinclair. Dentition unchanged? Yes Difficult Airway? No. Procedure Start Time: 07/23/2021 11:22 AM. Staff Section Anesthesia Provider: Sweta May Anes Asst, Performed the procedure Provider #1: Binh Osorio MD. Binh Osorio MD GENERAL ANESTHESIA ORDERABLES * PHOSPHORUS BLOOD (07/23/2021 10:27 AM CDT) Only the most recent of6 resultswithin the time period is included. Phosphorus 3.5 2.8 - 5.1 mg/dL 07/23/2021 11:06 AM CDT [facility] Blood BLOOD SPECIMEN / Unknown Venipuncture / Unknown 07/23/2021 10:27 AM CDT 07/23/2021 10:38 AM CDT Cr Titus MD LAB - CHEMISTRY KRISTA CAREY [facility] [address] [place] [phone], [facility] [phone] * ETT LINE PERFORMABLE (06/11/2021 1:41 PM CAUL PULLER) Narrative Grcaiela Urbano Anes Asst - 06/11/2021 1:41 PM CAUL PULLER Graciela Urbano Anes Asst 06/11/2021 1:43 PM Endotracheal Tube Placement: Patient Location: OR. Procedure: intubation ([id number]). Procedure Section: Sedation: under general anesthesia. Indications for Airway Management: anesthesia Induction: cricoid pressure and rapid sequence Patient Position: sniffing Mask Ventilation: not attempted. Blade Type: Priscila Blade Size: 4 Laryngoscopy View: grade 1 (full cords) Intubation Adjuncts: stylet Tube: endotracheal tube Placement: oral Tube type: cuff - inflated Tube Size (MM): 8 Depth of Insertion (CM): 23 Measured From: teeth Cuff Inflated With: air Number of Attempts: 1. Placement Verified By: direct visualization and CO2 monitor Staff Section Anesthesia Provider: Deep Lucia MD Provider #1: Graciela Urbano Anes Asst, Performed the procedure. Deep Lucia MD GENERAL ANESTHESI A ORDERABLES * (ABNORMAL) CBC W/O DIFFERENTIAL (06/11/2021 11:58 AM CAUL PULLER) Only the most recent of7 resultswithin the time period is included. WBC 11.1(H) 3.5 - 10.5 10 3/uL 06/11/2021 12:26 PM [facility] RBC 3.64(L) 4.30 - 5.70 10 6/uL 06/11/2021 12:26 PM [facility] Hemoglobin 11.3(L) 12.0 - 17.6 g/dL 06/11/2021 12:26 PM [facility] Hematocrit 32.8(L) 35.2 - 51.7 % 06/11/2021 12:26 PM [facility] MCV 90.1 80.7 - 98.3 fL 06/11/2021 12:26 PM [facility] MCH 31.0 26.7 - 34.0 pg 06/11/2021 12:26 PM [facility] MCHC 34.5 30.8 - 35.9 g/dL 06/11/2021 12:26 PM [facility] Platelet Count 176 150 - 400 10 3/uL 06/11/2021 12:26 PM [facility] RDW-SD 47.8 36.0 - 50.0 fL 06/11/2021 12:26 PM [facility] RDW-CV 15.0(H) 11.2 - 14.8 % 06/11/2021 12:26 PM [facility] MPV 9.5 9.4 - 12.9 fL 06/11/2021 12:26 PM [facility] nRBC Absolute 0.00 0 10 3/uL 06/11/2021 12:26 PM [facility] nRBC Auto 0.0 0 /100 WBC 06/11/2021 12:26 PM [facility] Blood BLOOD SPECIMEN / Unknown Venipuncture / Unknown 06/11/2021 11:58 AM CAUL PULLER 06/11/2021 12:21 PM CAUL PULLER Humza Whitmore MD LAB - HEMATOLOGY ORD ERABLES [facility] [address] [place] [phone], [facility] [phone] * (ABNORMAL) URINALYSIS COMPLETE W MICROSCOPIC (05/01/2021 4:50 PM CAUL PULLER) Color UA Colorless(A ) Straw, Yellow 05/01/2021 5:38 PM [facility] Clarity UA Clear Clear 05/01/2021 5:38 PM [facility] Specific [place] UA 1.008 1.005 - 1.030 05/01/2021 5:38 PM [facility] pH UA 8.0 5.0 - 8.0 pH 05/01/2021 5:38 PM [facility] Protein UA 2+(A) Negative 05/01/2021 5:38 PM [facility] Glucose UA 1+(A) Negative 05/01/2021 5:38 PM [facility] Ketone UA Negative Negative 05/01/2021 5:38 PM [facility] Bilirubin UA Negative Negative 05/01/2021 5:38 PM [facility] Blood UA Negative Negative 05/01/2021 5:38 PM [facility] Nitrite UA Negative Negative 05/01/2021 5:38 PM [facility] Leukocyte Esterase Negative Negative 05/01/2021 5:38 PM [facility] Urobilinogen UA Negative Negative mg/dL 05/01/2021 5:38 PM [facility] RBC UA 0-2 None Seen, 0-2, 3-5 /HPF 05/01/2021 5:38 PM [facility] WBC UA 0-5 None Seen, 0-5 /HPF 05/01/2021 5:38 PM [facility] Bacteria UA Trace(A) None /HPF 05/01/2021 5:38 PM [facility] Squamous Epithelial Cells UA 0-2 None Seen, 0-2, 3-5 /HPF 05/01/2021 5:38 PM [facility] Urine URINE SPECIMEN OBTAINED BY CLEAN CATCH PROCEDURE / Unknown Collection / Unknown 05/01/2021 4:50 PM CAUL PULLER 05/01/2021 5:26 PM CAUL PULLER [facility] - 05/01/2021 5:38 PM CAUL PULLER Alexandra Ramachandran MD LAB - URINALYSIS ORD ERABLES [address] [address], [facility] [phone] * PROTEIN URINE RANDOM QUANTITATIVE (05/01/2021 4:50 PM CAUL PULLER) Protein Urine 79 Not Established mg/dL 05/01/2021 5:44 PM [facility] Urine URINE SPECIMEN OBTAINED BY CLEAN CATCH PROCEDURE / Unknown Collection / Unknown 05/01/2021 4:50 PM CAUL PULLER 05/01/2021 5:26 PM CAUL PULLER Alexandra Ramachandran MD LAB - URINE CHEMISTR Y ORDERABLES [address] [address], [facility] [phone] * CREATININE URINE RANDOM (05/01/2021 4:50 PM CAUL PULLER) Creatinine Urine 30 Not Established mg/dL 05/01/2021 5:44 PM [facility] Urine URINE SPECIMEN OBTAINED BY CLEAN CATCH PROCEDURE / Unknown Collection / Unknown 05/01/2021 4:50 PM CAUL PULLER 05/01/2021 5:26 PM CAUL PULLER Alexandra Ramachandran MD LAB - URINE CHEMISTR Y ORDERABLES [facility] [address] [place] [address], [facility] [phone] * ECHO STRESS TEST W DOBUTAMINE (05/01/2021 11:50 AM CAUL PULLER) Anatomical Region Laterality Modality Chest Echo 05/01/2021 10:3 7 AM CAUL PULLER Narrative Procedure Note Anny Skinner MD - 05/01/2021 Alexandra Ramachandran MD ECHOCARDIOGRAPHY RAD IANT * BLOOD TYPE ABO+ RH PANEL (05/01/2021 9:37 AM CAUL PULLER) ABO Rh O POS 05/01/2021 11:02 AM CAUL PULLER [facility] Blood BLOOD SPECIMEN / Unknown Lab Venipuncture / Unknown 05/01/2021 9:37 AM CAUL PULLER 05/01/2021 10:03 AM CAUL PULLER Alexandra Ramachandran MD LAB - BLOOD BANK ORD ERABLES Performing Organization Address [facility] [place]/[facility]/ZIP Co de Phone Number [facility] [address] [place] [address], [facility] [phone] * HLA TYPING DNA LOW RESOLUTION DR,DQ (05/01/2021 9:21 AM CAUL PULLER) DR DQ Low Resolution DRB1-1 *01 2021 5:07 PM CAUL PULLER [facility] ([facility]) DR DQ Low Resolution DRB1-2 *11 2021 5:07 PM CAUL PULLER [facility] ([facility]) DR DQ Low Resolution DQB1-1 *03 (DQ7) 2021 5:07 PM CAUL PULLER [facility] ([facility]) DR DQ Low Resolution DQB1-2 *05 2021 5:07 PM CAUL PULLER [facility] ([facility]) DR DQ Low Resolution DRB3-1 *02 2021 5:07 PM CAUL PULLER [facility] ([facility]) DR DQ Low Resolution DRB3-2 Negative 2021 5:07 PM CAUL PULLER [facility] ([facility]) DR DQ Low Resolution DRB4-1 Negative 2021 5:07 PM CAUL PULLER [facility] ([facility]) DR DQ Low Resolution DRB4-2 Negative 2021 5:07 PM CAUL PULLER [facility] ([facility]) DR DQ Low Resolution DRB5-1 Negative 2021 5:07 PM CAUL PULLER [facility] ([facility]) DR DQ Low Resolution DRB5-2 Negative 2021 5:07 PM CAUL PULLER [facility] ([facility]) DR DQ Low Resolution Methodology Real Time PCR 2021 5:07 PM CAUL PULLER [facility] ([facility]) Comment DR DQ Low Resolution - 2021 5:07 PM CAUL PULLER [facility] ([facility]) DR DQ Low Resolution test date 2021 2021 5:07 PM CAUL PULLER [facility] ([facility]) Comment: This test was developed and its performance characteristics determined by the [facility]. It has not been cleared or approved by the U.S. Food and Drug Administration. The FDA has determined that such clearance or approval is not necessary. This test is used for clinical purposes. It should not be regarded as investigational or for research. This laboratory is certified under the Clinical Laboratory Improvement Amendments of 1988 (CLIA-88) as qualified to perform high complexity clinical laboratory testing. CLIA ID# [id number] Performed at: [facility], [address] [place] [phone] [employer] Inspector:Dr. Mich Wolfe, PhD, Blood BLOOD SPECIMEN / Unknown Lab Venipuncture / Unknown 05/01/2021 9:21 AM CAUL PULLER 05/01/2021 9:46 AM CAUL PULLER Alexandra Ramachandran MD LAB - BLOOD BANK ORD ERABLES [facility] ([facility]) [address] [place], [place] [address] * HLA TYPING DNA LOW RESOLUTION A,B,C (05/01/2021 9:21 AM CAUL PULLER) ABC DNA A1 *02 2021 5:07 PM CAUL PULLER [facility] ([facility]) ABC DNA A2 *11 2021 5:07 PM CAUL PULLER [facility] ([facility]) ABC DNA B1 *40 (B61) 2021 5:07 PM CAUL PULLER [facility] ([facility]) ABC DNA B2 *40 (B60) 2021 5:07 PM CAUL PULLER [facility] ([facility]) ABC DNA BW1 6 2021 5:07 PM CAUL PULLER [facility] ([facility]) ABC DNA BW2 6 2021 5:07 PM CAUL PULLER [facility] ([facility]) ABC DNA C1 *02 2021 5:07 PM CAUL PULLER [facility] ([facility]) ABC DNA C2 *03 (Cw10) 2021 5:07 PM CAUL PULLER [facility] ([facility]) ABC DNA Methodology Real Time PCR 2021 5:07 PM CAUL PULLER [facility] ([facility]) Comment ABC DNA - 5:07 PM CAUL PULLER [facility] ([facility]) ABC DNA Test Date 2 2021 5:07 PM CAUL PULLER [facility] ([facility]) Comment: This test was developed and its performance characteristics determined by the [facility]. It has not been cleared or approved by the U.S. Food and Drug Administration. The FDA has determined that such clearance or approval is not necessary. This test is used for clinical purposes. It should not be regarded as investigational or for research. This laboratory is certified under the Clinical Laboratory Improvement Amendments of 1988 (CLIA-88) as qualified to perform high complexity clinical laboratory testing. CLIA ID# [id number] Performed at: [facility], [address] [place] [phone] [employer] Inspector:Dr. Mich Wolfe, PhD, Blood BLOOD SPECIMEN / Unknown Lab Venipuncture / Unknown 05/01/2021 9:21 AM CAUL PULLER 05/01/2021 9:46 AM CAUL PULLER Alexandra Ramachandran MD LAB - BLOOD BANK ORD ERABLES Performing Organization Address City/[facility]/ZIP Co de Phone Number [facility] ([facility]) [address] [place] [address], [facility] * HLA ANTIBODY SCREEN LUM CLASS 2 SAB (05/01/2021 9:21 AM CAUL PULLER) % PRA 0 2021 5:08 PM CAUL PULLER [facility] ([facility]) Class 2 LUM SAB Specificity - 2021 5:08 PM CAUL PULLER [facility] ([facility]) Class 2 LUM SAB Moderate Risk - 2021 5:08 PM CAUL PULLER [facility] ([facility]) Class 2 LUM SAB Reportable Comments - 2021 5:08 PM CAUL PULLER [facility] ([facility]) Class 2 SAB Test Date 2021 5:08 PM CAUL PULLER [facility] ([facility]) Comment: This test was developed and its performance characteristics determined by the [facility]. It has not been cleared or approved by the U.S. Food and Drug Administration. The FDA has determined that such clearance or approval is not necessary. This test is used for clinical purposes. It should not be regarded as investigational or for research. This laboratory is certified under the Clinical Laboratory Improvement Amendments of 1988 (CLIA-88) as qualified to perform high complexity clinical laboratory testing. CLIA ID# [id number] Performed at: [facility], [address] [place] [phone] [employer] Inspector:Dr. Mich Wolfe, PhD, Blood BLOOD SPECIMEN / Unknown Lab Venipuncture / Unknown 05/01/2021 9:21 AM CAUL PULLER 05/01/2021 9:47 AM CAUL PULLER Alexandra Ramachandran MD LAB - BLOOD BANK ORD ERABLES [facility] ([facility]) [address] [place] [address] * HLA ANTIBODY SCREEN LUM CLASS 1 SAB (05/01/2021 9:21 AM CAUL PULLER) Pathologist [facility] % PRA 0 2021 5:07 PM CAUL PULLER [facility] ([facility]) Class 1 LUM SAB Specificity - 2021 5:07 PM CAUL PULLER [facility] ([facility]) Class 1 LUM SAB Moderate Risk - 2021 5:07 PM CAUL PULLER [facility] ([facility]) Class 1 LUM SAB Reportable Comments - 2021 5:07 PM CAUL PULLER [facility] ([facility]) Class 1 SAB Test Date 2 2021 5:07 PM CAUL PULLER [facility] ([facility]) Comment: This test was developed and its performance characteristics determined by the [facility]. It has not been cleared or approved by the U.S. Food and Drug Administration. The FDA has determined that such clearance or approval is not necessary. This test is used for clinical purposes. It should not be regarded as investigational or for research. This laboratory is certified under the Clinical Laboratory Improvement Amendments of 1988 (CLIA-88) as qualified to perform high complexity clinical laboratory testing. CLIA ID# [id number] Performed at: [facility], [address] [place] [phone] [employer] Inspector:Dr. Mich Wolfe, PhD, Blood BLOOD SPECIMEN / Unknown Lab Venipuncture / Unknown 05/01/2021 9:21 AM CAUL PULLER 05/01/2021 9:46 AM CAUL PULLER Alexandra Ramachandran MD LAB - BLOOD BANK ORD ERABLES [facility] ([facility]) [address] [place] [address] * CANNABINOID SCREEN BLOOD (05/01/2021 9:21 AM CAUL PULLER) [facility] Marijuana Metabolites +POSITIVE+ 2021 10:09 AM CAUL PULLER [facility] ([facility]) Comment:REFERENCE RANGE: thr shold: 5 ng/mL Specimen Type Comment 2021 10:09 AM CAUL PULLER [facility] ([facility]) Comment: WHOLE BLOOD This specimen was screened by immunoassay at the thresholds listed above. Presumptive positive results have not been confirmed by an alternate method; results are intended for clinical medical purposes. Please contact the laboratory if confirmatory testing is desired. This test was developed and its performance characteristics determined by [facility]. It has not been cleared or approved by the Food and Drug Administration. Blood BLOOD SPECIMEN / Unknown Lab Venipuncture / Unknown 05/01/2021 9:21 AM CAUL PULLER 05/01/2021 9:47 AM CAUL PULLER Narrative [facility] ([facility]) - 2021 10:09 AM CAUL PULLER Performed at: [facility] Last Guide [address] [phone] [employer] Inspector: Kiersten Shields [facility] [place], Phone: [phone] Alexandra Ramachandran MD LAB - CHEMISTRY [facility] ([facility]) [address] [place] [address] * COCAINE METABOLITE QUANT (05/01/2021 9:21 AM CAUL PULLER) [facility] Cocaine and Metabolite Blood <20 ng/mL 05/05/2021 1:22 AM CAUL PULLER [facility] ([facility]) Comment: INTERPRETIVE INFORMATION: Cocaine Metabolite, Serum or Plasma, Quantitative Methodology: Quantitative Gas Chromatography- Mass Spectrometry/Quantitative Liquid Chromatography-Tandem Mass Spectrometry Positive cutoff: 20 ng/mL For medical purposes only; not valid for forensic use. The concentration value must be greater than or equal to the cutoff to be reported as positive. Interpretive questions should be directed to the laboratory. This test was developed and its performance characteristics determined by [facility]. It has not been cleared or approved by the US Food and Drug Administration. This test was performed in a CLIA certified laboratory and is intended for clinical purposes. Performed By: [facility] [address] [place] [id number] Corn Shucker: Agatha Vale MD Blood BLOOD SPECIMEN / Unknown Lab Venipuncture / Unknown 05/01/2021 9:21 AM CAUL PULLER 05/01/2021 9:47 AM CAUL PULLER Alexandra Ramachandran MD LAB - CHEMISTRY ORDE CHERRY [facility] [employer] [facility]) [address] [phone], [facility] * SYPHILIS ANTIBODY CASCADING REFLEX (05/01/2021 9:21 AM CAUL PULLER) Treponema pallidum Antibody Non-react jammie Non-react jammie 05/01/2021 11:08 AM CAUL PULLER [facility] Comment: No Laboratory evidence of syphilis infection. Note: Circulating antibodies may be low or undetectable in early infection. If recent exposure is suspected, re-draw sample in 2-4 weeks and repeat testing. Blood BLOOD SPECIMEN / Unknown Lab Venipuncture / Unknown 05/01/2021 9:21 AM CAUL PULLER 05/01/2021 9:48 AM CAUL PULLER Alexandra Ramachandran MD LAB - SEROLOGY ORDER RED [facility] [address] [place] [address], [facility] [phone] * AMPHETAMINE BLOOD CONFIRMATION (05/01/2021 9:21 AM CAUL PULLER) Amphetamines Confirmation <20 ng/mL 05/04/2021 7:41 PM CAUL PULLER [facility] ([facility]) Comment: INTERPRETIVE INFORMATION: Amphetamines, Serum or Plasma, Quantitative Methodology: Quantitative Liquid Chromatography-Tandem Mass Spectrometry Positive cutoff: 20 ng/mL For medical purposes only; not valid for forensic use. The absence of expected drug(s) and/or drug metabolite(s) may indicate non-compliance, inappropriate timing of specimen collection relative to drug administration, poor drug absorption, or limitations of testing. The concentration value must be greater than or equal to the cutoff to be reported as positive. Interpretive questions should be directed to the laboratory. This test was developed and its performance characteristics determined by [employer]. It has not been cleared or approved by the US Food and Drug Administration. This test was performed in a CLIA certified laboratory and is intended for clinical purposes. Methamphetamine Confirmation <20 ng/mL 05/04/2021 7:41 PM CAUL PULLER [facility] ([facility]) MDA Confirmation <20 ng/mL 05/04/19 7:41 PM CAUL PULLER [facility] ([facility]) MDMA Confirm <20 ng/mL 05/04/2021 7:41 PM CAUL PULLER [facility] ([facility]) MDEA Confirmation <20 ng/mL 022 7:41 PM CAUL PULLER [facility] ([facility]) Comment: Performed By: [facility] [address] [place] [address] Corn Shucker: Agatha Vale MD Blood BLOOD SPECIMEN / Unknown Lab Venipuncture / Unknown 05/01/2021 9:21 AM CAUL PULLER 05/01/2021 9:47 AM CAUL PULLER Alexandra Ramachandran MD LAB - CHEMISTRY ORDE CHERRY [facility]) [address] [place] [address] * QUANTIFERON-TB GOLD PLUS 4-TUBE (05/01/2021 9:21 AM CAUL PULLER) [facility] QuantiFERON NIL 0.02 IU/mL 1:50 PM CAUL PULLER [facility] ([facility]) Comment: Performed By: [facility] [address] [place] [address] Corn Shucker: Agatha Vale MD QuantiFERON TB Gold Plus Negative Negative 05/04/2021 1:50 PM CAUL PULLER [facility] ([facility]) Comment: Interpretive Data: Quantiferon TB Gold Plus Interferon gamma release is measured for specimens from each of the four collection tubes. A qualitative result (Negative, Positive, or Indeterminate) is based on interpretation of the four values, NIL, MITOGEN minus NIL (MITOGEN-NIL), TB1 minus NIL (TB1-NIL), and TB2 minus NIL (TB2-NIL). The NIL value represents nonspecific reactivity produced by the patient specimen. The MITOGEN-NIL value serves as the positive control for the patient specimen, demonstrating successful lymphocyte activity. The TB1-NIL tube specifically detects CD4+ lymphocyte reactivity, specifically stimulated by the TB1 antigens. The TB2-NIL tube detects both CD4+ and CD8+ lymphocyte reactivity, stimulated by TB2 antigens. An overall Negative result does not completely rule out TB infection. A false-positive result in the absence of other clinical evidence of TB infection is not uncommon. Refer to: Updated Guidelines for Using Interferon Gamma Release Assays to Detect Mycobacterium tuberculosis Infection --- [place], 2010 (http://www.cdc.gov/mmwr/preview/mmwrhtml/zz7093e4.htm), for more information concerning test performance in low-prevalence populations and use in occupational screening. QuantiFERON Plus TB1 Minus NIL 0.01 0.00 - 0.34 IU/mL 05/04/2021 1:50 PM CAUL PULLER [facility] ([facility]) QuantiFERON Plus TB2 Minus NIL 0.00 0.00 - 0.34 IU/mL 05/04/2021 1:50 PM CAUL PULLER [facility]) QuantiFERON Mitogen Minus NIL 9.13 IU/mL 05/04/2021 1:50 PM CAUL PULLER [facility]) Blood BLOOD SPECIMEN / Unknown Lab Venipuncture / Unknown 05/01/2021 9:21 AM CAUL PULLER 05/01/2021 9:48 AM CAUL PULLER Alexandra Ramachandran MD LAB - CHEMISTRY KRISTA CAREY [facility]) [address] * (ABNORMAL) PTH INTACT ([facility]) (05/01/2021 9:21 AM CAUL PULLER) Only the most recent of2 resultswithin the time period is included. Pathologist [facility] PTH Intact 577.4(H) 8.0 - 77.0 pg/mL 05/01/2021 10:26 AM CAUL PULLER [facility] Blood BLOOD SPECIMEN / Unknown Lab Venipuncture / Unknown 05/01/2021 9:21 AM CAUL PULLER 05/01/2021 9:51 AM CAUL PULLER Alexandra Ramachandran MD LAB - CHEMISTRY [place]RISTA [place] [address] [place] [address], [facility] [phone] * HIV-1 HIV-2 ANTIBODY + HIV P24 AG PANEL (05/01/2021 9:21 AM CAUL PULLER) Only the most recent of2 resultswithin the time period is included. [facility] HIV Antigen/Antibod y 1 & 2 Non-reacti ve Non-react jammie 05/01/2021 11:08 AM CAUL PULLER [facility] Comment:No Laboratory eviden ce of HIV infection. Blood BLOOD SPECIMEN / Unknown Lab Venipuncture / Unknown 05/01/2021 9:21 AM CAUL PULLER 05/01/2021 9:48 AM CAUL PULLER Alexandra Ramachandran MD LAB - CHEMISTRY KRISTA CAREY [facility] [address] [place] [address], [facility] [phone] * OPIATES BLOOD (05/01/2021 9:21 AM CAUL PULLER) [facility] Opiates Screen Negative 2021 10:09 AM CAUL PULLER [facility] ([facility]) Comment:REFERENCE RANGE: thr shold: 10 ng/mL Oxycodone Screen Negative 05/07/19 10:09 AM CAUL PULLER [facility] ([facility]) Comment:REFERENCE RANGE: thr shold: 10 ng/mL Specimen Type Comment 2021 10:09 AM CAUL PULLER [facility] ([facility]) Comment: WHOLE BLOOD This specimen was screened by immunoassay at the thresholds listed above. Presumptive positive results have not been confirmed by an alternate method; results are intended for clinical medical purposes. Please contact the laboratory if confirmatory testing is desired. This test was developed and its performance characteristics determined by [facility]. It has not been cleared or approved by the Food and Drug Administration. Blood BLOOD SPECIMEN / Unknown Lab Venipuncture / Unknown 05/01/2021 9:21 AM CAUL PULLER 05/01/2021 9:47 AM CAUL PULLER Narrative [facility] ([facility]) - 2021 10:09 AM CAUL PULLER Performed at: [facility] Last Guide [address] [phone] [employer] Inspector: Kiersten Shields [facility] [place], Phone: [phone] Alexandra Ramachandran MD LAB - CHEMISTRY KRISTA CAREY [facility] ([facility]) [address] [place] [address] * URIC ACID BLOOD (05/01/2021 9:21 AM CAUL PULLER) Uric Acid 4.7 3.5 - 7.2 mg/dL 05/01/2021 10:23 AM CAUL PULLER [facility] Blood BLOOD SPECIMEN / Unknown Lab Venipuncture / Unknown 05/01/2021 9:21 AM CAUL PULLER 05/01/2021 9:52 AM CAUL PULLER Alexandra Ramachandran MD LAB - CHEMISTRY KRISTA CAREY [address] [address] [phone] * STRONGYLOIDES ANTIBODY IGG (05/01/2021 9:21 AM CAUL PULLER) Strongyloides Antibody IgG 0.1 <=0.9 IV 05/05/2021 1:32 PM CAUL PULLER [facility] ([facility]) Comment: INTERPRETIVE INFORMATION: Strongyloides Ab, IgG by TAM 0.9 IV or less....... Negative - No significant level of Strongyloides IgG antibody detected. 1.0 IV................Equivocal - The Strongyloides IgG antibody result is borderline and therefore inconclusive. Recommend retesting the patient in 2-4 weeks, if clinically indicated. 1.1 IV or greater ... Positive - IgG antibodies to Strongyloides detected, which may suggest current or past infection. False-positive results may occur with prior exposure to other helminth infections. Testing low-prevalence populations may also result in false-positive results. Performed By: [facility] [address] [place] [id number] Corn Shucker: Agatha Vale MD Blood BLOOD SPECIMEN / Unknown Lab Venipuncture / Unknown 05/01/2021 9:21 AM CAUL PULLER 05/01/2021 9:48 AM CAUL PULLER Alexandra Ramachandran MD LAB - SEROLOGY ORDER RED [facility] Priceline [facility]) [address] [place] [address] * CYTOMEGALOVIRUS ANTIBODY IGG BLOOD (05/01/2021 9:21 AM CAUL PULLER) Pathologist [facility] Cytomegalovirus Antibody IgG <0.20 U/mL 05/03/2021 3:06 PM CAUL PULLER [facility] Priceline ([facility]) Comment: INTERPRETIVE INFORMATION: Cytomegalovirus Antibody, IgG 0.59 U/mL or less......... Not Detected 0.6 - 0.69 U/mL........... Indeterminate-Repeat testing in 10-14 days may be helpful. 0.70 U/mL or greater...... Detected In immunocompromised patients, CMV serology (IgG or IgM antibody titers) may not be reliable and may be misleading in the diagnosis of acute or reactivation CMV disease. The preferred method for diagnosis is culture of virus and/or demonstration of viral antigen in peripheral white cells (buffy coat), bronchoalveolar lavage (BAL) cells, or tissue biopsies. This test should not be used for blood donor screening, associated re-entry protocols, or for screening Human Cell, Tissues and Cellular and Tissue-Based Products (HCT/P). The best evidence for current infection is a significant change on two appropriately timed specimens, where both tests are done in the same laboratory at the same time. Performed By: [facility] [address] [place] [address] Corn Shucker: Agatha Vale MD Blood BLOOD SPECIMEN / Unknown Lab Venipuncture / Unknown 05/01/2021 9:21 AM CAUL PULLER 05/01/2021 9:48 AM CAUL PULLER Alexandra Ramachandran MD LAB - CHEMISTRY ORDE CHERRY [facility] Priceline [facility]) [address] [place] [address] * RUBELLA ANTIBODY IGG TITER (05/01/2021 9:21 AM CAUL PULLER) [facility] Rubella Antibody IgG 15.1 IU/mL 05/03/2021 12:21 PM CAUL PULLER [facility] ([facility]) Comment: INTERPRETIVE INFORMATION: Rubella Antibody, IgG Less than 9 IU/mL ........ Not Detected 9 - 9.9 IU/mL ............ Indeterminate-Repeat testing in 10-14 days may be helpful. 10 IU/mL or Greater ...... Detected The best evidence for current infection is a significant change on two appropriately timed specimens, where both tests are done in the same laboratory at the same time. The magnitude of the measured result is not indicative of the amount of antibody present. Performed By: [facility] [address] [place] [address] Corn Shucker: Agatha Vale MD Blood BLOOD SPECIMEN / Unknown Lab Venipuncture / Unknown 05/01/2021 9:21 AM CAUL PULLER 05/01/2021 9:47 AM CAUL PULLER Alxeandra Ramachandran MD LAB - SEROLOGY ORDER RED [facility] Priceline [facility]) [address] [place] [address], [facility] * RUBEOLA ANTIBODY IGG (05/01/2021 9:21 AM CAUL PULLER) [facility] Measles (Rubeola) Antibody IgG 7.6 AU/mL 05/03/2021 2:08 PM CAUL PULLER [facility] [employer] ([facility]) Comment: INTERPRETIVE INFORMATION: Measles (Rubeola) Antibody, IgG 13.4 AU/mL or less........ Negative - No significant level of detectable measles (rubeola) IgG antibody. 13.5-16.4 AU/mL .......... Equivocal - Repeat testing in 10-14 days may be helpful. 16.5 AU/mL or greater .... Positive - IgG antibody to measles (rubeola) detected which may indicate a current or past exposure/immunization to measles (rubeola). The best evidence for current infection is a significant change on two appropriately timed specimens, where both tests are done in the same laboratory at the same time. Performed By: [facility] [address] [place] [address] Corn Shucker: Agatha Vale MD Blood BLOOD SPECIMEN / Unknown Lab Venipuncture / Unknown 05/01/2021 9:21 AM CAUL PULLER 05/01/2021 9:47 AM CAUL PULLER Alexandra Ramachandran MD LAB - CHEMISTRY KRISTA CAREY Performing Organization Address [facility] [place]/[facility] de Phone Number [facility] Priceline [facility]) [address] [place] [address] * MUMPS ANTIBODY IGG (05/01/2021 9:21 AM CAUL PULLER) Mumps Virus Antibody IgG 51.0 AU/mL 05/03/2021 12:38 PM CAUL PULLER [facility] [employer] ([facility]) Comment: INTERPRETIVE INFORMATION: Mumps Ab, IgG by THANH 8.9 AU/mL or less .... Negative - No significant level of detectable IgG mumps virus antibody 9.0-10.9 AU/mL ....... Equivocal - Repeat testing in 10-14 days may be helpful 11.0 AU/mL or greater: Positive - IgG antibody to mumps virus detected, which may indicate a current or past exposure/ immunization to mumps virus. The best evidence for current infection is a significant change on two appropriately timed specimens, where both tests are done in the same laboratory at the same time. Performed By: [facility] [address] [place] [address] Corn Shucker: Agatha Vale MD Blood BLOOD SPECIMEN / Unknown Lab Venipuncture / Unknown 05/01/2021 9:21 AM CAUL PULLER 05/01/2021 9:48 AM CAUL PULLER Alexandra Ramachandran MD LAB - CHEMISTRY KRISTA CAREY Performing Organization Address [facility] [place]/[facility] Co de Phone Number [facility] [employer] ([facility]) [address] [place] [address] * VARICELLA ZOSTER ANTIBODY IGG (05/01/2021 9:21 AM CAUL PULLER) Varicella zoster Virus Antibody IgG 533.9 IV 05/03/2021 12:23 PM CAUL PULLER [facility] ([facility]) Comment: INTERPRETIVE INFORMATION: VZV Ab, IgG 134.9 IV or less ....... Negative - No significant level of detectable IgG varicella-zoster antibody. 135.0 - 164.9 IV ....... Equivocal - Repeat testing in 10-14 days may be helpful. 165.0 IV or greater .... Positive - IgG antibody to varicella-zoster detected, which may indicate a current or past varicella-zoster infection. The best evidence for current infection is a significant change on two appropriately timed specimens, where both tests are done in the same laboratory at the same time. Performed By: [facility] [address] [place] [address] Corn Shucker: Agatha Vale MD Blood BLOOD SPECIMEN / Unknown Lab Venipuncture / Unknown 05/01/2021 9:21 AM CAUL PULLER 05/01/2021 9:48 AM CAUL PULLER Alexandra Ramachandran MD LAB - CHEMISTRY KRISTA CAREY Performing Organization Address City/[facility]/ZIP Co de Phone Number [facility]) [address] [place] [address] * (ABNORMAL) TRANSFERRIN (05/01/2021 9:21 AM CAUL PULLER) [facility] Transferrin 167(L) 174 - 382 mg/dL 05/01/2021 10:49 AM CAUL PULLER [facility] Blood BLOOD SPECIMEN / Unknown Lab Venipuncture / Unknown 05/01/2021 9:21 AM CAUL PULLER 05/01/2021 9:48 AM CAUL PULLER Alexandra Ramachandran MD LAB - CHEMISTRY ORDLisa CAREY [address] [address], [facility] [phone] * TOXOPLASMA GONDII ANTIBODY IGG (05/01/2021 9:21 AM CAUL PULLER) [facility] Toxoplasma Antibody IgG <3.0 IU/mL 05/03/2021 1:50 PM CAUL PULLER [facility] ([facility]) Comment: INTERPRETIVE INFORMATION: Toxoplasma Ab, IgG 7.1 IU/mL or less....... Not Detected 7.2-8.7 IU/mL .......... Indeterminate-Repeat testing in 10-14 days may be helpful. 8.8 IU/mL or greater ... Detected The best evidence for current infection is a significant change on two appropriately timed specimens, where both tests are done in the same laboratory at the same time. This test should not be used for blood donor screening, associated re-entry protocols, or for screening Human Cell, Tissues and Cellular and Tissue-Based Products (HCT/P). The magnitude of the measured result is not indicative of the amount of antibody present. Performed By: [facility] [address] [place] [address] Corn Shucker: Agatha Vale MD Blood BLOOD SPECIMEN / Unknown Lab Venipuncture / Unknown 05/01/2021 9:21 AM CAUL PULLER 05/01/2021 9:48 AM CAUL PULLER Alexandra Ramachandran MD LAB - CHEMISTRY KRITSA CAREY [facility] Organization Address City/State/ZIP Co de Phone Number [facility] Priceline [facility]) [address] [place] [address] * (ABNORMAL) TITO-MYLES VIRUS ANTIBODY TO VCA IGG (05/01/2021 9:21 AM CAUL PULLER) [facility] Tito-Myles Virus Antibody IgG Viral Capsid Antigen 687.0(H) 0.0 - 21.9 U/mL 05/03/2021 12:41 PM CAUL PULLER [facility] P[employer] ([facility]) Comment: INTERPRETIVE INFORMATION: Tito-Myles Virus Antibody to Viral Capsid Antigen, IgG 17.9 U/mL or less.......Not Detected 18.0-21.9 U/mL..........Indeterminate - Repeat testing in 10-14 days may be helpful. 22.0 U/mL or greater....Detected Performed By: [facility] [address] [place] [address] Corn Shucker: Agatha Vale MD Blood BLOOD SPECIMEN / Unknown Lab Venipuncture / Unknown 05/01/2021 9:21 AM CAUL PULLER 05/01/2021 9:47 AM CAUL PULLER Alexandra Ramachandran MD LAB - CHEMISTRY KRISTA CAREY [facility]) [address] [place] [address], [facility] * HEMOGLOBIN A1C (05/01/2021 9:21 AM CAUL PULLER) Hemoglobin A1c 4.5 4.4 - 6.3 % 05/01/2021 11:11 AM [facility] Estimated Average Glucose 82 mg/dL 05/01/2021 11:11 AM [facility] Comment: HbA1c Interpretation: Treatment target values recommended by ADA and other clinical organizations should be used to evaluate metabolic control in patients. Treatment Target Values: Normal : < 5.7% Pre-diabetes: 5.7-6.4% Diabetes: Equal to or greater than 6.5% Reference: [place] Diabetes Association Standards of Care in Diabetes -2014 In patients 70 years and older consider HbA1c target range of 7.0-7.5% Reference: Diabetes Mellitus in Older People: Position Statement on behalf of the International Association of Gerontology and Geriatrics (IAGG), the Diabetes Working Libertarian for Older People (EDWPOP), and the International Task Force of Experts in Diabetes. Leonardo Snow, et al. J [place] [employer] Association. 2012 Test results diagnostic of diabetes should be repeated for confirmation. The Sebia Capillary 2 assay for the measurement of HbA1c is a National Glycohemoglobin Standardization Program (NGSP)certified method. Blood BLOOD SPECIMEN / Unknown Lab Venipuncture / Unknown 05/01/2021 9:21 AM CAUL PULLER 05/01/2021 9:51 AM CAUL PULLER Alexandra Ramachandran MD LAB - CHEMISTRY KRISTA CAREY [facility] [address] [address], [facility] [phone] * VITAMIN D 25-HYDROXY (05/01/2021 9:21 AM CAUL PULLER) Only the most recent of2 resultswithin the time period is included. Vitamin D, 25 Hydroxy 32.0 30.0 - 80.0 ng/mL 05/01/2021 10:42 AM [facility] Comment: The recommendations for 25-Hydroxy Vitamin D clinical decision points are as follows: Deficient: <20.0 ng/mL Insufficient: 20.0 - 29.9 ng/mL Sufficient: > or =30.0 ng/mL If the 25-Hydroxy Vitamin D results are inconsitent with clinical evidence, it is recommended that follow-up testing using a method such as LC/MS/MS be performed to confirm the result. Reference: The Endocrine Society Clinical Practice Guidelines. 2011 Blood BLOOD SPECIMEN / Unknown Lab Venipuncture / Unknown 05/01/2021 9:21 AM CAUL PULLER 05/01/2021 9:52 AM CAUL PULLER Alexandra Ramachandran MD LAB - CHEMISTRY ORDE CHERRY [address] [address], [place] [phone] * TYPE + SCREEN PANEL (05/01/2021 9:21 AM CAUL PULLER) Only the most recent of3 resultswithin the time period is included. Antibody Screen NEG 11:02 AM CAUL PULLER [facility] ABO Rh O POS 05/01/2021 11:02 AM [facility]OD [facility] LAB Blood Bank BLOOD SPECIMEN / Unknown Lab Venipuncture / Unknown 05/01/2021 9:21 AM CAUL PULLER 05/01/2021 10:03 AM CAUL PULLER Alexandra Ramachandran MD LAB - BLOOD BANK ORD ERABLES [facility] [place] [address], [place] [phone] * NICOTINE + METABOLITES BLOOD (05/01/2021 9:21 AM CAUL PULLER) Nicotine <2 ng/mL 05/04/2021 8:47 PM CAUL PULLER [facility] ([facility]) Comment: Consistent with abstinence from nicotine-containing products for at least 1 week. INTERPRETIVE INFORMATION: Nicotine and Metabolites, Serum or Plasma, Quantitative Methodology: Quantitative Liquid Chromatography-Tandem Mass Spectrometry Positive cutoff: 2 ng/mL For medical purposes only; not valid for forensic use. This test is designed to evaluate recent use of nicotine-containing products. Passive and active exposure cannot be discriminated definitively, although a cutoff of 10 ng/mL cotinine is frequently used for surgery qualification purposes. For smoking cessation programs or compliance testing, the absence of expected drug(s) and/or drug metabolite(s) may indicate non-compliance, inappropriate timing of specimen collection relative to drug administration, poor drug absorption, or limitations of testing. This test cannot distinguish between use of tobacco and purified nicotine products. The concentration value must be greater than or equal to the cutoff to be reported as positive. This test was developed and its performance characteristics determined by [employer]. It has not been cleared or approved by the US Food and Drug Administration. This test was performed in a CLIA certified laboratory and is intended for clinical purposes. Performed By: [place] [address] Corn Shucker: Agatha Vale MD 3-Hydroxy Cotinine <2 ng/mL 2021 8:47 PM CAUL PULLER [facility] ([facility]) Cotinine <2 ng/mL 05/04/2021 8:47 PM CAUL PULLER [facility] ([facility]) Blood BLOOD SPECIMEN / Unknown Lab Venipuncture / Unknown 05/01/2021 9:21 AM CAUL PULLER 05/01/2021 9:48 AM CAUL PULLER Alexandra Ramachandran MD LAB - CHEMISTRY KRISTA CAREY Performing Organization Address [facility] [place]/[facility] de Phone Number [facility] ([facility]) [address] [place] [address] * IRON BLOOD (05/01/2021 9:21 AM CAUL PULLER) [facility] Iron 62 50 - 175 ug/dL 05/01/2021 10:49 AM CAUL PULLER [facility] Blood BLOOD SPECIMEN / Unknown Lab Venipuncture / Unknown 05/01/2021 9:21 AM CAUL PULLER 05/01/2021 9:48 AM CAUL PULLER Alexandra Ramachandran MD LAB - CHEMISTRY KRISTA CAREY Performing Organization Address [facility] [place]/State/ZIP Co de Phone Number [address] [address], [place] [phone] * (ABNORMAL) HEPATITIS B SURFACE ANTIBODY (05/01/2021 9:21 AM CAUL PULLER) Only the most recent of2 resultswithin the time period is included. Hepatitis B Virus Surface Antibody Reactive( A) Non-react jammie 05/01/2021 11:08 AM [facility] Comment: > 12 mIU/mL Hepatitis B surface Antibody (HBsAb). Reactive for HBsAb - individual is considered immune to Hepatitis B Virus infection. Hepatitis B Surface Antibody Quantitative 12.2(H) <8.0 mIU/mL 05/01/2021 11:08 AM [facility] Comment: Hepatitis B Surface Antibody Numeric Result Interpretation: Nonreactive: <8.0 mIU/mL Indeterminate: 8.0 - 12.0 mIU/mL Reactive: >12.0 mIU/mL Blood BLOOD SPECIMEN / Unknown Lab Venipuncture / Unknown 05/01/2021 9:21 AM CAUL PULLER 05/01/2021 9:48 AM CAUL PULLER Alexandra Ramachandran MD LAB - CHEMISTRY KRISTA CAREY Performing Organization Address City/[facility]/ZIP Co de Phone Number [address] [address], [place] [phone] * HEPATITIS B CORE ANTIBODY (05/01/2021 9:21 AM CAUL PULLER) HBc Antibody Total Non-reacti ve Non-reacti ve 05/01/2021 11:08 AM [facility] Blood BLOOD SPECIMEN / Unknown Lab Venipuncture / Unknown 05/01/2021 9:21 AM CAUL PULLER 05/01/2021 9:48 AM CAUL PULLER Alexandra Ramachandran MD LAB - CHEMISTRY KRISTA CAREY [address] [address], [place] [phone] * HEPATITIS B SURFACE ANTIGEN W RFLX CONFIRMATION (05/01/2021 9:21 AM CAUL PULLER) Only the most recent of2 resultswithin the time period is included. Pathologist [facility] Hepatitis B Virus Surface Antigen Non-reacti ve Non-reacti ve 05/01/2021 11:08 AM [facility] Blood BLOOD SPECIMEN / Unknown Lab Venipuncture / Unknown 05/01/2021 9:21 AM CAUL PULLER 05/01/2021 9:48 AM CAUL PULLER Alexandra Ramachandran MD LAB - CHEMISTRY KRISTA CAREY Performing Organization Address [facility] [place]/[facility]/ZIP Co de Phone Number [address] [address], [facility] [phone] * ALCOHOL ETHYL BLOOD (05/01/2021 9:21 AM CAUL PULLER) [facility] Ethanol (mg/dL) <10 <10 mg/dL 10:23 AM [facility] Ethanol Calculated (g/dL) <0.010 <0.010 g/dL 05/01/2021 10:23 AM [facility] Blood BLOOD SPECIMEN / Unknown Lab Venipuncture / Unknown 05/01/2021 9:21 AM CAUL PULLER 05/01/2021 9:52 AM CAUL PULLER Narrative [facility] - 05/01/2021 10:23 AM CAUL PULLER Ethanol Interp <10: None Detected. Depression of PHARMACY OPERATIONS SPECIALIST: >100 mg/dl Potentially Critical: >250 mg/dl Potentially Fatal >400 mg/dl Ethanol in the patient's blood will contribute to the osmolar gap. Ethanol's contribution to the osmolar gap can be estimated by dividing the concentration of ethanol in mg/dL by 4.6. This test is for clinical use only and does not equal a JOSE for legal purposes. Alexandra Ramachandran MD LAB - CHEMISTRY KRISTA CAREY Performing Organization Address City/[facility]/ZIP Co de Phone Number [address] [address], [facility] [phone] * HEPATITIS C ANTIBODY (05/01/2021 9:21 AM CAUL PULLER) [facility] Hepatitis C Antibody Non-react jammie Non-reac tive 05/01/2021 11:08 AM CAUL PULLER [facility] Comment:Hepatitis C Antibody screen indicates no serologic evidence of past or current infection with Hepatitis C Virus. Patients with unexplained liver disease who are immunocompromised or suspected of having acute Hepatitis C infection may benefit from Nucleic Acid Test (ELMO) for Hepatitis C Viral RNA to confirm Hepatitis C status. Blood BLOOD SPECIMEN / Unknown Lab Venipuncture / Unknown 05/01/2021 9:21 AM CAUL PULLER 05/01/2021 9:48 AM CAUL PULLER Alexandra Ramachandran MD LAB - CHEMISTRY KRISTA CAREY [facility] [address] [address], [facility] [phone] * HEPATITIS A ANTIBODY (05/01/2021 9:21 AM CAUL PULLER) [facility] Hepatitis A Virus Antibody Total Negative Negative 05/03/2021 8:31 AM CAUL PULLER [facility] ([facility]) Comment: Performed by [employer], [address] [place] [address] [email or web address], Agatha Vale MD, Lab. Director Blood BLOOD SPECIMEN / Unknown Lab Venipuncture / Unknown 05/01/2021 9:21 AM CAUL PULLER 05/01/2021 9:47 AM CAUL PULLER Alexandra Ramachandran MD LAB - CHEMISTRY KRISTA CAREY [facility]) [address] [place] [address] * (ABNORMAL) FERRITIN (05/01/2021 9:21 AM CAUL PULLER) [facility] Ferritin 469(H) 22 - 275 ng/mL 05/01/2021 11:08 AM CAUL PULLER [facility] Blood BLOOD SPECIMEN / Unknown Lab Venipuncture / Unknown 05/01/2021 9:21 AM CAUL PULLER 05/01/2021 9:48 AM CAUL PULLER Alexandra Ramachandran MD LAB - CHEMISTRY ORDLisa BRADENRUDI Performing Organization Address City/[facility]/ZIP Co de Phone Number [place] [address] [place] [address], [facility] [phone] * (ABNORMAL) LIPID PROFILE (05/01/2021 9:21 AM CAUL PULLER) Cholesterol Total 155 <200 mg/dL 05/01/2021 10:23 AM [facility] HDL 34(L) >40 mg/dL 05/01/2021 10:23 AM [facility] Comment: ATP III Classification of HDL Cholesterol: <40 mg/dL: Considered a major risk factor. >60 mg/dL: Considered a negative risk factor. LDL Calculated 85 <100 mg/dL 05/01/2021 10:23 AM [facility] Comment: ATP III Classification of LDL Cholesterol: <100 mg/dL: Optimal 100 - 129 mg/dL: Near Optimal/Above Optimal 130 - 159 mg/dL: Borderline High 160 - 189 mg/dL: High >190 mg/dL: Very High Triglycerides 182(H) <150 mg/dL 05/01/2021 10:23 AM [facility] Comment: ATP III Classification of Triglycerides: <150 mg/dL: Normal 150 - 199 mg/dL: Borderline High 200 - 400 mg/dL: High >500 mg/dL: Very High Blood BLOOD SPECIMEN / Unknown Lab Venipuncture / Unknown 05/01/2021 9:21 AM CAUL PULLER 05/01/2021 9:52 AM CAUL PULLER Alexandra Ramachandran MD LAB - CHEMISTRY KRISTA CAREY [facility] [address] [place] [address], [facility] [phone] * XR PANOREX (05/01/2021 8:58 AM CAUL PULLER) Anatomical Region Laterality Modality Head Radiographic Jeferson ging 05/01/2021 9:42 AM CAUL PULLER Impressions 05/01/2021 12:15 PM CAUL PULLER IMPRESSION: No evidence of periapical abscess. Dictated by Meryl Edmonds MD (radiology special procedure tech). Dr. CARL Mcnamara have personally reviewed and interpreted this examination/study. This report was electronically signed by CARL SHELL on 05/01/2021 12:15 PM . Narrative 05/01/2021 12:15 PM CAUL PULLER EXAMINATION: [facility] HISTORY: Z01.818: Pre-transplant evaluation for kidney transplant COMPARISON: No prior study is available for comparison. FINDINGS: There are multiple dental restorations. There is no periodontal disease or periapical abscess. The mandible and temporomandibular joints are intact. Procedure Note Carl Shell DO - 05/01/2021 EXAMINATION: [facility] HISTORY: Z01.818: Pre-transplant evaluation for kidney transplant COMPARISON: No prior study is available for comparison. FINDINGS: There are multiple dental restorations. There is no periodontal diseaseor periapical abscess. The mandible and temporomandibular joints areintact. IMPRESSION: No evidence of periapical abscess. Dictated by Meryl Edmonds MD (radiology special procedure tech). Dr. CARL Mcnamara have personally reviewed and interpreted this examination/study. This report was electronically signed by CARL SHELL on 05/01/2021 12:15 PM . Alexandra Ramachandran MD DIAGNOSTIC IMAGING O RDERABLES * US RETROPERITONEAL COMPLETE (05/01/2021 8:56 AM CAUL PULLER) Anatomical Region Laterality Modality Abdomen Ultrasound 05/01/2021 8:54 AM CAUL PULLER Impressions 05/01/2021 9:02 AM CAUL PULLER IMPRESSION: 1. Atrophic multicystic echogenic kidneys, consistent with end-stage renal disease. 2. Nonobstructing left renal calculus. This report was electronically signed by COREY JAMES on 05/01/2021 9:02 AM . Narrative 05/01/2021 9:02 AM CAUL PULLER EXAMINATION: RENAL ULTRASOUND CLINICAL HISTORY: Pretransplant evaluation COMPARISON: CT abdomen and pelvis dated 01/14/2021 FINDINGS: Multiple static ultrasonographic images of the bilateral kidneys and urinary bladder were obtained and submitted for interpretation. The kidneys are atrophic, with the right kidney measuring 7 cm and the left kidney measuring 7 cm in length, respectively. There is increased cortical echogenicity bilaterally. Multiple bilateral renal cysts are present. A nonobstructing left renal calculus is seen measuring 0.7 cm. The urinary bladder is decompressed and cannot be fully evaluated. Procedure Note Corey James MD - 05/01/2021 EXAMINATION: RENAL ULTRASOUND CLINICAL HISTORY: Pretransplant evaluation COMPARISON: CT abdomen and pelvis dated 01/14/2021 FINDINGS: Multiple static ultrasonographic images of the bilateral kidneys and urinary bladder were obtained and submitted for interpretation. The kidneys are atrophic, with the right kidney measuring 7 cm and the left kidney measuring 7 cm in length, respectively. There is increased cortical echogenicity bilaterally. Multiple bilateral renal cysts are present. A nonobstructing left renal calculus is seen measuring 0.7 cm. The urinary bladder is decompressed and cannot be fully evaluated. IMPRESSION: 1. Atrophic multicystic echogenic kidneys, consistent with end-stagerenal disease. 2. Nonobstructing left renal calculus. This report was electronically signed by COREY JAMES on 29:02 AM . Alexandra Ramachandran MD ORDERABLES * ETT LINE PERFORMABLE (03/12/2021 12:26 PM [facility]) Narrative Khalida Hernandez APRN-CRNA - 03/12/2021 12:26 PM [facility] Khalida Hernandez APRN-CRNA 03/12/2021 12:28 PM Endotracheal Tube Placement: Patient Location: OR. Procedure: intubation ([id number]). Procedure Section: Sedation: under general anesthesia. Indications for Airway Management: anesthesia Procedure pretreatments used? No Induction: standard IV Patient Position: sniffing Mask Ventilation: easy. Blade Type: Priscila Blade Size: 3 Laryngoscopy View: grade 1 (full cords) Intubation Adjuncts: cricoid pressure Tube: endotracheal tube Placement: oral Tube type: cuff - inflated Tube Size (MM): 7 Depth of Insertion (CM): 23 Measured From: teeth Cuff volume (mL): 5 Cuff Inflated With: air Number of Attempts: 1. Placement Verified By: direct visualization, CO2 monitor and bilateral breath sounds Tube secured with: adhesive tape. Dentition unchanged? Yes Difficult Airway? No. Staff Section Anesthesia Provider: Bright, Khalida N, FIRE PREVENTION SPECIALIST-VENEER TAPING MACHINE OPERATOR, Performed the procedure Deya Sorensen MD GENERAL ANESTHESIA O RDERABLES * IR PERITONEAL TUNNEL CATH PLACE (02/25/2021 12:21 PM [facility]) Only the most recent of2 resultswithin the time period is included. Anatomical Region Laterality Modality Abdomen X-Ray Angiograph y 02/26/2021 7:02 AM [facility] Impressions 02/26/2021 7:07 AM [facility] Impression: Unsuccessful attempt at placement of a peritoneal dialysis catheter. I was present throughout the procedure. This report was electronically signed by EFRA ONITVEROS M.D. on 02/26/2021 7:07 AM . Narrative 02/26/2021 7:07 AM [facility] This is an interventional nephrology procedure performed on February 25, 2021 Retail District Manager: Efra Ontiveros Procedures performed: 1. attempted insertion of PD catheter without peritoneoscopy 2. Injection of contrast in the peritoneal cavity 3. Ultrasound guidance for needle placement 4. Conscious sedation This patient was referred for placement of peritoneal dialysis catheter. Following informed consent the patient was taken to the angiography suite and placed on the fluoroscopy table. The skin of the abdomen was prepared with chlorhexidine and sterile drapes were applied. Moderate sedation on this adult patient was ordered by me, administered intravenously in my presence, and monitored by the procedure nurse as an independent trained observer who was present throughout the procedure. The following parameters were monitored: oxygen saturation, heart rate, blood pressure, and response to care. Intra-service sedation start time was 11:50 and end time was 12:17 during which I was present. Total physician intra-service sedation time was 27 minutes. For details on pre-moderate sedation and post-moderate sedation patient evaluation, please review the evaluation forms in [facility]. For details on monitored clinical parameters during the intra-service sedation time, please review the procedure nurse documentation in [facility]. Local anesthetic was infiltrated in the skin and subcutaneous tissues superior and lateral to the umbilicus on the right side. A 1 cm transverse incision was made and with blunt dissection this was carried down to the rectus sheath. Under real-time ultrasound guidance a micropuncture needle was advanced into the peritoneal cavity. A guidewire was then manipulated towards the pelvis but could not be advanced beyond 5 to 10 cm. Injection of contrast demonstrated that the contrast was pooling in the guidewire could not be manipulated beyond this. In view of his prior history of recurrent peritonitis this likely represents a loculated pocket. A decision was made to terminate the procedure and referred the patient for laparoscopic surgery. The wounds were then closed with subcutaneous 3-0 Vicryl and a subcuticular suture with 4-0 Vicryl. The wounds was sealed with Exofin and Steri-Strips and covered with a gauze dressing. Procedure Note Efra Ontiveros MD - 02/26/2021 This is an interventional nephrology procedure performed on February 25, 2021 Retail District Manager: Efra Herrera. [place] Procedures performed: 1. attempted insertion of PD catheter without peritoneoscopy 2. Injection of contrast in the peritoneal cavity 3. Ultrasound guidance for needle placement 4. Conscious sedation This patient was referred for placement of peritoneal dialysis catheter. Following informed consent [facility] and placed on the fluoroscopy table. The skin of the abdomen wasprepared with chlorhexidine and sterile drapes were applied. Moderate sedation on this adult patient was ordered by me, administered intravenously in my presence, and monitored by the procedure nurse as an independent trained observer who was present throughout the procedure.The following parameters were monitored: oxygen saturation, heart rate,blood pressure, and response to care. Intra-service sedation start time was 11:50 and end time was 12:17 during which I was present. Totalphysician intra-service sedation time was 27 minutes. For details on pre-moderate sedation and post-moderate sedation patient evaluation, please reviewthe evaluation forms in [facility]. For details on monitored clinical parameters during the intra-service sedation time, please review the procedurenurse documentation in [facility]. Local anesthetic was infiltrated in the skin and subcutaneous tissues superior and lateral to the umbilicus on the right side. A 1 cmtransverse incision was made and with blunt dissection this was carried down to the rectus sheath. Under real-time ultrasound guidance a micropunctureneedle was advanced into the peritoneal cavity. A guidewire was thenmanipulated towards the pelvis but could not be advanced beyond 5 to 10 cm.Injection of contrast demonstrated that the contrast was pooling in the guidewire could not be manipulated beyond this. In view of his prior history of recurrent peritonitis this likely represents a loculated pocket. A decision was made to terminate the procedure and referred the patientfor laparoscopic surgery. The wounds were then closed with subcutaneous 3-0 Vicryl and a subcuticular suture with 4-0 Vicryl. The wounds was sealed with Exofin and Steri-Strips and covered with a gauze dressing. Impression: Unsuccessful attempt at placement of a peritoneal dialysis catheter. I was present throughout the procedure. This report was electronically signed by EFRA ONTIVEROS M.D. on02/26/2021 7:07 AM . Merlin Quezada MD IR ORDERABLES * (ABNORMAL) RENAL FUNCTION PANEL (01/19/2021 7:32 AM [facility]) Only the most recent of6 resultswithin the time period is included. BUN 35(H) 7 - 26 mg/dL 01/19/2021 8:27 AM [facility] Creatinine 7.92(H) 0.71 - 1.16 mg/dL 01/19/2021 8:27 AM [facility] Sodium 139 136 - 145 mmol/L 01/19/2021 8:27 AM [facility] Potassium 3.9 3.5 - 4.5 mmol/L 01/19/2021 8:27 AM [facility] Chloride 97(L) 98 - 107 mmol/L 01/19/2021 8:27 AM [facility] CO2 26 22 - 29 mmol/L 01/19/2021 8:27 AM [facility] Glucose 91 70 - 115 mg/dL 01/19/2021 8:27 AM [facility] Albumin 1.4(L) 3.4 - 5.0 g/dL 01/19/2021 8:27 AM [facility] Calcium 8.7 8.4 - 10.2 mg/dL 01/19/2021 8:27 AM [facility] Phosphorus 5.5(H) 2.8 - 5.1 mg/dL 01/19/2021 8:27 AM [facility] Anion Gap 20(H) 8 - 18 01/19/2021 8:27 AM [facility] BUN/Creatinine Ratio 4(L) 7 - 23 01/19/2021 8:27 AM [facility] Osmolality Calculated 296 270 - 300 mOsm/kg 01/19/2021 8:27 AM CDT [facility] eGFR by CKD-EPI 8(L) >=90 mL/min/1.7 3 m2 01/19/2021 8:27 AM CDT [facility] Blood BLOOD SPECIMEN / Unknown Lab Venipuncture / Unknown 01/19/2021 7:32 AM CDT 01/19/2021 8:00 AM CDT Roberto Miller MD LAB - CHEMISTR Y ORDERABLES Performing Organization Address City/[facility]/ZIP Co de Phone Number [address] [address], [place] [phone] * MAGNESIUM BLOOD (01/19/2021 7:32 AM CDT) Only the most recent of10 resultswithin the time period is included. Magnesium 2.1 1.6 - 2.6 mg/dL 01/19/2021 8:27 AM CDT [facility] Blood BLOOD SPECIMEN / Unknown Lab Venipuncture / Unknown 01/19/2021 7:32 AM CDT 01/19/2021 8:00 AM CDT Roberto Miller MD LAB - CHEMISTR Y ORDERABLES Performing Organization Address [facility] [place]/[facility]/ZIP Co de Phone Number [address] [address], [place] [phone] * CULTURE BLOOD (01/18/2021 5:20 PM CDT) Only the most recent of10 resultswithin the time period is included. Culture No growth day 5 HEATHER 01/24/2021 12:02 AM CDT [facility] MICROBIOLOGY Blood PERIPHERAL BLOOD / Unknown Lab Venipuncture / Unknown 01/18/2021 5:20 PM CDT 01/18/2021 5:32 PM CDT Uzair Ortiz MD LAB - MICROBIOLOGY O RDERABLES [facility] MICROBIOLOGY [address] [place] [address], [facility] [phone] * XR ABDOMEN KUB PORTABLE (01/18/2021 2:52 PM CDT) Only the most recent of3 resultswithin the time period is included. Anatomical Region Laterality Modality Abdomen Radiographic Jeferson ging 01/18/2021 2:56 PM CDT Impressions 01/18/2021 3:12 PM CDT IMPRESSION: Mild improvement in the dilated small bowel loops with paucity air within the distal colon. Findings suggest improving ileus. Report dictated by Quentin Calvert M.D. (radiology special procedure tech). I, Dr. JUAN A FARR MD, [facility] have personally reviewed and interpreted this examination/study. This report was electronically signed by JUAN A FARR MD, FRCR on 01/18/2021 3:12 PM . Narrative 01/18/2021 3:12 PM CDT EXAMINATION: XR ABDOMEN KUB PORTABLE HISTORY: K56.7: Ileus COMPARISON: Comparison is made with abdominal radiograph dated 01/16/2021.. FINDINGS: Embolization coils are reidentified in the right upper quadrant. There has been interval decrease in size of the mildly dilated loops of bowel compared to prior. There is paucity of air within the rectosigmoid colon. Free intraperitoneal air is not adequately assessed on supine radiographs. No pathological calcifications are seen. The visible osseous structures are intact. The lung bases are clear. Procedure Note Juan A Frar MD - 01/18/2021 EXAMINATION: XR ABDOMEN KUB PORTABLE HISTORY: K56.7: Ileus COMPARISON: Comparison is made with abdominal radiograph dated01/16/2021.. FINDINGS: Embolization coils are reidentified in the right upper quadrant. Therehas been interval decrease in size of the mildly dilated loops of bowel compared to prior. There is paucity of air within the rectosigmoidcolon. Free intraperitoneal air is not adequately assessed on supineradiographs. No pathological calcifications are seen. The visible osseous structures are intact. The lung bases are clear. IMPRESSION: Mild improvement in the dilated small bowel loops with paucity airwithin the distal colon. Findings suggest improving ileus. Report dictated by Quentin Calvert M.D. (radiology special procedure tech). I, Dr. JUAN A FARR MD, [facility] have personally reviewedand interpreted this examination/study. This report was electronically signed by JUAN A FARR MD, [facility] on 01/18/2021 3:12 PM . Uzair Ortiz MD DIAGNOSTIC IMAGING O RDERABLES * IR CENTRAL LINE INSERT TUNNEL (01/17/2021 12:59 PM CDT) Only the most recent of2 resultswithin the time period is included. Anatomical Region Laterality Modality Chest, Upper Extremity X-Ray Ang iography 01/17/2021 2:03 PM CDT Narrative 01/17/2021 2:07 PM CDT This is an Interventional Nephrology procedure performed on 01/17/2021 12:40 PM Attending(s): Efra Rojas Retail District Manager(S): Angel Macdonald MD Chief Contract Officer: Aleksey Hazel MD Diagnosis: ESRD on Peritoneal Dialysis Indication: Switching to Hemodialysis due to recurrent peritonitis Procedures performed: 1. Insertion of tunneled dialysis access catheter 2. Fluoroscopic guidance for central venous catheter procedure. 3. Ultrasound guidance for vascular access with permanent recording. Following informed consent, the patient was taken to the angiography suite and placed on the fluoroscopy table. The skin of the Right neck and chest was prepared with chlorhexidine and sterile drapes were applied. Under real time ultrasound guidance, the Right internal jugular vein was accessed with a micropuncture needle and a microfilament wire was advanced to the central veins under fluoroscopic guidance. This allowed the placement of a 5 Indonesian trocar which in turn allowed the placement of a 0.035 guidewire which was manipulated into the IVC. An exit site was chosen on the chest wall and anesthetized with lidocaine. Using a metal tunneling device, a 15.5Fx 24 cm Duraflow 2 dialysis access catheter was brought through a subcutaneous tunnel to the venotomy incision and prepared for insertion. Serial dilators were utilized to create a track to the jugular vein sufficient to accommodate a peel-away sheath which was inserted over the guidewire and the inner stylet was removed. The catheter was inserted through the sheath which was then removed. The catheter was adjusted for length under fluoroscopy such that the tip was at the junction of the SVC and RA. Both lumens flushed easily and were locked with heparin. The catheter was sutured in place with 2-0 nylon and a CHG dressing was placed. The venotomy incision was closed with a 2-0 nylon suture. Moderate sedation on this adult patient was ordered by me, administered intravenously in my presence, and monitored by the procedure nurse as an independent trained observer who was present throughout the procedure. The following parameters were monitored: oxygen saturation, heart rate, blood pressure, and response to care. Intra-service sedation start time was 1211 and end time was 1310 during which I was present. Total physician intra-service sedation time was 59 minutes. For details on pre-moderate sedation and post-moderate sedation patient evaluation, please review the evaluation forms in [facility]. For details on monitored clinical parameters during the intra-service sedation time, please review the procedure nurse documentation in [facility]. I was present for the entire procedure. This report was electronically signed by ANGEL MACDONALD on 01/17/2021 2:07 PM . Procedure Note Angel Macdonald MD - 01/17/2021 This is an Interventional Nephrology procedure performed on 01/17/2021 12:40 PM Attending(s): Efra Rojas Retail District Manager(S): Angel Macdonald MD Chief Contract Officer: Aleksey Hazel MD Diagnosis: ESRD on Peritoneal Dialysis Indication: Switching to Hemodialysis due to recurrent peritonitis Procedures performed: 1. Insertion of tunneled dialysis access catheter 2. Fluoroscopic guidance for central venous catheter procedure. 3. Ultrasound guidance for vascular access with permanent recording. Following informed consent, the patient was taken to the angiographysuite and placed on the fluoroscopy table. The skin of the Right neck andchest was prepared with chlorhexidine and sterile drapes were applied. Under real time ultrasound guidance, the Right internal jugular vein was accessed with a micropuncture needle and a microfilament wire wasadvanced to the central veins under fluoroscopic guidance. This allowed the placement of a 5 Indonesian trocar which in turn allowed the placement of a 0.035 guidewire which was manipulated into the IVC. An exit site was chosen on the chest wall and anesthetized with lidocaine. Using a metal tunneling device, a 15.5Fx 24 cm Duraflow 2 dialysis access catheter was brought through a subcutaneous tunnel to the venotomy incision and prepared for insertion. Serial dilators were utilized to create a trackto the jugular vein sufficient to accommodate a peel-away sheath which was inserted over the guidewire and the inner stylet was removed. Thecatheter was inserted through the sheath which was then removed. The catheter was adjusted for length under fluoroscopy such that the tip was at the junction of the SVC and RA. Both lumens flushed easily and were locked with heparin. The catheter was sutured in place with 2-0 nylon and aCHG dressing was placed. The venotomy incision was closed with a 2-0 nylon suture. Moderate sedation on this adult patient was ordered by me, administered intravenously in my presence, and monitored by the procedure nurse as an independent trained observer who was present throughout the procedure.The following parameters were monitored: oxygen saturation, heart rate,blood pressure, and response to care. Intra-service sedation start time [id number] and end time was 1310 during which I was present. Total physician intra-service sedation time was 59 minutes. For details on pre-moderate sedation and post-moderate sedation patient evaluation, please reviewthe evaluation forms in [facility]. For details on monitored clinical parameters during the intra-service sedation time, please review the procedurenurse documentation in [facility]. I was present for the entire procedure. This report was electronically signed by ANGEL MACDONALD on 01/17/2021 2:07PM . Uzair Ortiz MD IR ORDERABLES * IR TUNNEL PERITONEAL CATH REMOVE (01/17/2021 12:35 PM CDT) Anatomical Region Laterality Modality Abdomen X-Ray Angiograph y 01/17/2021 1:54 PM CDT Impressions 01/17/2021 2:03 PM CDT Impression: successful removal of PD catheter This was followed by Mcclellan catheter placement. Please see separate note. Moderate sedation note included in Mcclellan catheter note. I was present for the entirety of the procedure. This report was electronically signed by ANGEL MACDONALD on 01/17/2021 2:03 PM . Narrative 01/17/2021 2:03 PM CDT This is an Interventional Nephrology Procedure performed on 01/17/2021 12:11 PM Attending(s):Efra Ontiveros MD Retail District Manager(S): Angel Macdonald MD Chief Contract Officer: Aleksey Hazel MD Diagnosis: ESRD on Peritoneal Dialysis Indication: Recurrent Peritonitis Procedure performed: Removal of a PERM intraperitoneal cannula or catheter. Procedure details: After informed consent, the patient was taken to the angiography suite and placed on the fluoroscopy table. The abdomen and catheter were cleansed with chlorhexidine and sterile drapes were applied. After infiltration with Lidocaine, a 2 inch incision was made over the deep cuff of the PD catheter. The cuff site was identified via blunt dissection. Using an electric cautery in addition to blunt dissection, the deep cuff was freed from the rectus muscle. A purse-string suture with 3-0 Vicryl suture material was applied around the catheter and the catheter was removed from the abdominal cavity. The purse-string suture was tied to close the catheter tract. Attention was then turned to the external cuff of the PD catheter. After infiltration with Lidocaine, a 1 inch incision was made over the external cuff. Using a combination of blunt dissection and electric cautery, the external cuff was freed from surrounding subcutaneous tissue. The PD catheter was then removed in its entirety. Subcutaneous sutures with 3-0 Vicryl were first used and then medial skin incision was closed with a combination of subcuticular 4-0 Vicryl sutures and Dermabond. The catheter exit site was packed with Iodoform gauze. Sterile dressing was then applied to cover the incisions. Procedure Note Angel Macdonald MD - 01/17/2021 This is an Interventional Nephrology Procedure performed on 01/17/2021 12:11 PM Attending(s):Efra Ontiveros MD Retail District Manager(S): Angel Macdonald MD Chief Contract Officer: Aleksey Hazel MD Diagnosis: ESRD on Peritoneal Dialysis Indication: Recurrent Peritonitis Procedure performed: Removal of a PERM intraperitoneal cannula orcatheter. Procedure details: After informed consent, the patient was taken to the angiography suiteand placed on the fluoroscopy table. The abdomen and catheter were cleansed with chlorhexidine and sterile drapes were applied. After infiltration with Lidocaine, a 2 inch incision was made over the deep cuff of the PD catheter. The cuff site was identified via blunt dissection. Using an electric cautery in addition to blunt dissection,the deep cuff was freed from the rectus muscle. A purse-string suture with3-0 Vicryl suture material was applied around the catheter and the catheter was removed from the abdominal cavity. The purse-string suture was tiedto close the catheter tract. Attention was then turned to the external cuff of the PD catheter. After infiltration with Lidocaine, a 1 inch incision was made over theexternal cuff. Using a combination of blunt dissection and electric cautery, the external cuff was freed from surrounding subcutaneous tissue. The PD catheter was then removed in its entirety. Subcutaneous sutures with 3-0 Vicryl were first used and then medialskin incision was closed with a combination of subcuticular 4-0 Vicrylsutures and Dermabond. The catheter exit site was packed with Iodoform gauze. Sterile dressing was then applied to cover the incisions. Impression: successful removal of PD catheter This was followed by Mcclellan catheter placement. Please see separatenote. Moderate sedation note included in Mcclellan catheter note. I was present for the entirety of the procedure. This report was electronically signed by ANGEL MACDONALD on 01/17/2021 2:03PM . Uzair Ortiz MD IR ORDERABLES * (ABNORMAL) CELL COUNT W DIFFERENTIAL FLUID (01/16/2021 3:31 PM CDT) Only the most recent of3 resultswithin the time period is included. Color Fluid Straw Colorless, Straw 01/16/2021 5:12 PM [facility] Clarity Fluid Hazy(A) Clear 01/16/2021 5:12 PM [facility] Volume Fluid 3.0 mL 01/16/2021 5:12 PM [facility] WBC Fluid 873 Reference Range Not Established /uL 01/16/2021 5:12 PM [facility] RBC Fluid 98 Reference Range Not Established /uL 01/16/2021 5:12 PM [facility] Differential Manual Differential to follow. 01/16/2021 5:12 PM [facility] Fluid PERITONEAL FLUID / Unknown Collection / Unknown 01/16/2021 3:31 PM CDT 01/16/2021 4:08 PM CDT [facility] - 01/16/2021 5:12 PM CDT No reference ranges established for body fluid cell counts. The reference ranges provided are derived from published literature. The test results must be integrated into the clinical context for interpretation. Uzair Ortiz MD LAB - BODY FLUID ORD ERABLES Performing Organization Address [facility] [place]/[facility] Co de Phone Number [address] [address], [facility] [phone] * DIFFERENTIAL MANUAL FLUID (01/16/2021 3:31 PM CDT) Only the most recent of3 resultswithin the time period is included. Segs % Fluid 81 % 01/16/2021 9:18 PM CDT [facility] Lymphocytes % Fluid 12 % 01/16/2021 9:18 PM CDT [facility] Monocytes % Fluid 6 % 01/16/2021 9:18 PM CDT [facility] Eosinophils % Fluid 1 % 01/16/2021 9:18 PM CDT [facility] Fluid PERITONEAL FLUID / Unknown Collection / Unknown 01/16/2021 3:31 PM CDT 01/16/2021 4:08 PM CDT Uzair Ortiz MD LAB - BODY FLUID ORD ERABLES Performing Organization Address [facility] [place]/[facility] Co de Phone Number [address] [address], [facility] [phone] * ECHO COMPLETE W BUBBLE STUDY (01/15/2021 2:47 PM CDT) Anatomical Region Laterality Modality Chest Echo 01/15/2021 1:55 PM CDT Narrative Procedure Note Gagandeep Gerardo MD - 01/16/2021 Uzair Ortiz MD ECHOCARDIOGRAPHY RAD IANT * (ABNORMAL) DIFFERENTIAL MANUAL (01/15/2021 4:52 AM CDT) Only the most recent of3 resultswithin the time period is included. WBC (corrected for NRBC) 4.3 10 3/uL 01/15/2021 5:57 AM [facility] Total Cell Count 100 01/15/2021 5:57 AM [facility] Neutrophils Absolute Manual 3.05 1.60 - 7.00 10 3/uL 01/15/2021 5:57 AM [facility] Comment:(BANDS+SEGS) x WBC = NEUT # (ANC) Lymphocyte Absolute Manual 0.82(L) 1.10 - 3.90 10 3/uL 01/15/2021 5:57 AM [facility] Monocytes Absolute Manual 0.30 0.26 - 1.07 10 3/uL 01/15/2021 5:57 AM [facility] Eosinophils Absolute Manual 0.13 0.00 - 0.47 10 3/uL 01/15/2021 5:57 AM [facility] Band % Manual 3 0 - 10 % 01/15/2021 5:57 AM [facility] Neutrophil % Manual 68 35 - 70 % 01/15/2021 5:57 AM [facility] Lymphocyte % Manual 19(L) 20 - 43 % 01/15/2021 5:57 AM [facility] Monocytes % Manual 7 5 - 13 % 01/15/2021 5:57 AM [facility] Eosinophils % Manual 3 0 - 6 % 01/15/2021 5:57 AM [facility] nRBC Manual 1(H) 0 /100 WBC 01/15/2021 5:57 AM [facility] Platelet Estimate Adequate Adequate 01/15/2021 5:57 AM [facility] Ovalocytes 1+(A) None 01/15/2021 5:57 AM [facility] Blood BLOOD SPECIMEN / Unknown Venipuncture / Unknown 01/15/2021 4:52 AM CDT 01/15/2021 5:13 AM [facility] Roberto Miller MD LAB - HEMATOLO GY ORDERABLES [facility] [address] [place] [address], [facility] [phone] * (ABNORMAL) LACTIC ACID BLOOD (01/14/2021 7:17 PM CDT) Only the most recent of4 resultswithin the time period is included. Lactic Acid-Stat 2.3(HH) <=2.0 mmol/L 01/14/2021 7:43 PM CDT [facility] Comment:Critical value previ ously called. Blood BLOOD SPECIMEN / Unknown Venipuncture / Unknown 01/14/2021 7:17 PM CDT 01/14/2021 7:20 PM CDT Roberto Miller MD LAB - CHEMISTR Y ORDERABLES [facility] [address] [place] [phone], [facility] [phone] * CT ABDOMEN PELVIS WO CONTRAST (01/14/2021 4:53 AM CDT) Only the most recent of2 resultswithin the time period is included. Anatomical Region Laterality Modality Abdomen, Pelvis Computed Tomogra phy 01/14/2021 5:01 AM CDT Impressions 01/14/2021 9:19 AM CDT Impression: 1.Mildly dilated small bowel with mild wall thickening which could represent enteritis with ileus. 2.Moderate volume ascites. 3.Bilateral renal atrophy. Report drafted by Shayne Gregory (resident) I, Dr. CAMMIE WALLACE have personally reviewed and interpreted this examination/study. This report was electronically signed by CAMMIE WALLACE on 01/14/2021 9:19 AM . Narrative 01/14/2021 9:19 AM CDT Procedure Information DATE: 01/14/2021 4:53 AM EXAMINATION: Computed tomography (CT) of the abdomen and pelvis without contrast TECHNIQUE: CT of the abdomen and pelvis was performed without contrast according to standard protocol. Clinical Information HISTORY: N18.6: End-stage renal disease R10.84: Abdominal pain, generalized K65.9: Peritonitis COMPARISON: 06/29/2020 Findings Evaluation of visceral and vascular structures is degraded due to lack of intravenous contrast administration. Lower Chest: Mild right dependent atelectasis. Hepatobiliary: Normal. Pancreas: Normal. Spleen: Normal. Kidneys: There is cystic degeneration the kidneys bilaterally. Coils are seen in the right renal pelvis. Adrenals: Normal. Retroperitoneum: Normal. Peritoneum: Moderate volume ascites. Peritoneal dialysis catheter terminates in the pelvis. No free air. Gastrointestinal: The distal esophagus is normal. The stomach is decompressed. The small bowel is mildly dilated up to 4 cm in diameter with mild wall thickening and contains air-fluid levels. Fluid is seen within the colon. The appendix is not well seen. Pelvic Structures: The urinary bladder is incompletely distended. The prostate is normal. Ascitic fluid tracks into the pelvis. Vasculature: No significant atherosclerosis. Bones: The visible osseous structures are intact. Soft tissues: Normal. Procedure Note Cammie Wallace MD - 01/14/2021 Procedure Information DATE: 01/14/2021 4:53 AM EXAMINATION: Computed tomography (CT) of the abdomen and pelvis without contrast TECHNIQUE: CT of the abdomen and pelvis was performed without contrast according to standard protocol. Clinical Information HISTORY: N18.6: End-stage renal disease R10.84: Abdominal pain, generalized K65.9: Peritonitis COMPARISON: 06/29/2020 Findings Evaluation of visceral and vascular structures is degraded due to lackof intravenous contrast administration. Lower Chest: Mild right dependent atelectasis. Hepatobiliary: Normal. Pancreas: Normal. Spleen: Normal. Kidneys: There is cystic degeneration the kidneys bilaterally. Coils are seen in the right renal pelvis. Adrenals: Normal. Retroperitoneum: Normal. Peritoneum: Moderate volume ascites. Peritoneal dialysis catheter terminates in the pelvis. No free air. Gastrointestinal: The distal esophagus is normal. The stomach is decompressed. The small bowel is mildly dilated up to 4 cm in diameter with mild wall thickening and contains air-fluid levels. Fluid is seen within the colon. The appendix is not well seen. Pelvic Structures: The urinary bladder is incompletely distended. The prostate is normal. Ascitic fluid tracks into the pelvis. Vasculature: No significant atherosclerosis. Bones: The visible osseous structures are intact. Soft tissues: Normal. Impression: 1.Mildly dilated small bowel with mild wall thickening which could represent enteritis with ileus. 2.Moderate volume ascites. 3.Bilateral renal atrophy. Report drafted by Shayne Gregory (resident) I, Dr. CAMMIE WALLACE have personally reviewed and interpreted this examination/study. This report was electronically signed by CAMMIE WALLACE on 01/14/2021 9:19AM . Roberto Miller MD CT ORDERABLES * SARS-COV-2 (COVID-19) INTERNAL (01/14/2021 4:51 AM CDT) COVID-19 PCR Not detected Not detected 01/14/2021 10:[address] [facility] Microbiology SPECIMEN FROM NASOPHARYNGEAL STRUCTURE / Unknown Collection / Unknown 01/14/2021 4:51 AM CDT 01/14/2021 5:[address] [facility] - 01/14/2021 10:53 AM CDT This nucleic acid amplification assay performance was validated by [facility]. This test has been authorized by the Food and Drug administration (FDA)under an Emergency Use Authorization (EUA). This test has been validated in accordance with the FDA's guidance document Policy for Diagnostic Testing in Laboratories Certified to perform High Complexity Testing under CLIA prior to Emergency Use Authorization for Coronavirus Disease-2019 during the Public Health Emergency issued on June 18, 2019. FDA independent review of this validation is pending. This test is only authorized for the duration of time the declaration that circumstances exist justifying the authorization of emergency use of in vitro diagnostic tests for detection of SARS-CoV-2 virus and/or diagnosis of COVID-19 infection under section 564(b)(1) of the Act, 21 U.S.C 360bbb-3 (b)(1), unless the authorization is terminated or revoked sooner. Fact Sheets for this EUA assay are available upon request. Roberto Miller MD LAB - MICROBIO LOGY ORDERABLES [facility] [address] [place] [address], [facility] [phone] * XR CHEST 1VW PORTABLE (01/14/2021 3:02 AM CDT) Anatomical Region Laterality Modality Chest Radiographic Jeferson ging 01/14/2021 3:04 AM CDT Impressions 01/14/2021 11:17 AM CDT FINDINGS/IMPRESSION: Lines and tubes: *Sternal wires are aligned. The inferior most sternal wire is fractured. Elevation of the right hemidiaphragm. Patchy perihilar and lower lobe lung opacities are noted, likely from vascular crowding due to poor lung expansion. Other possibility is streaky atelectasis There is no pleural effusion, or pneumothorax. The cardiomediastinal silhouette is normal. Dictated by Christian Vega DO (radiology special procedure tech). Dr. JUAN A Mcnamara MD, FRANGI have personally reviewed and interpreted this examination/study. This report was electronically signed by JUAN A FARR MD, FRCR on 01/14/2021 11:17 AM . Narrative 01/14/2021 11:17 AM CDT EXAMINATION: XR CHEST 1VW PORTABLE HISTORY: N18.6: End-stage renal disease R07.9: Chest pain at rest COMPARISON: 06/28/2020 Procedure Note Juan A Farr MD - 01/14/2021 EXAMINATION: XR CHEST 1VW PORTABLE HISTORY: N18.6: End-stage renal disease R07.9: Chest pain at rest COMPARISON: 06/28/2020 FINDINGS/IMPRESSION: Lines and tubes: *Sternal wires are aligned. The inferior most sternal wire is fractured. Elevation of the right hemidiaphragm. Patchy perihilar and lower lobelung opacities are noted, likely from vascular crowding due to poor lung expansion. Other possibility is streaky atelectasis There is no pleural effusion, or pneumothorax. The cardiomediastinal silhouette is normal. Dictated by Christian Vega DO (radiology special procedure tech). Dr. JUAN A Mcnamara MD, FRANGI have personally reviewedand interpreted this examination/study. This report was electronically signed by JUAN A FARR MD, FRCR on 01/14/2021 11:17 AM . Roberto Miller MD DIAGNOSTIC JEFERSON GING ORDERABLES * CULTURE BLOOD FUNGUS (01/14/2021 2:08 AM CDT) Only the most recent of2 resultswithin the time period is included. Culture No fungus isolated HEATHER 02/27/2021 10:[address] [facility] Blood PERIPHERAL BLOOD / Unknown Venipuncture / Unknown 01/14/2021 2:08 AM CDT 01/14/2021 2:26 AM CDT Roberto Miller MD LAB - MICROBIO LOGY ORDERABLES [facility] [address] [place] [address], [facility] [phone] * PATHOLOGY SMEAR BODY FLUID (01/13/2021 11:39 PM CDT) Only the most recent of2 resultswithin the time period is included. Pathology Diff Review DIFFERENTIAL REVIEW - CONFIRMED DIFFERENTIAL REVIEW - CONFIRMED 11:54 AM CDT [facility] Comment: Final diagnosis: Peritoneal fluid, smear: - Acute inflammation with increased numbers of eosinophils - Numerous intacellular and extracellular bacteria present - Recommend close follow-up with concurrent microbiology culture and sensitivity. Review of the morphologic and differential count of the peritoneal fluid smear confirms the differential data. The smear shows abundant acute inflammation as well as increased numbers of eosinophils. Intracellular and extracellular cosme-shaped bacteria are noted. Concurrent microbiology gram stain is positive for gram negative bacilli. Recommend close follow-up with concurrent microbiology culture and sensitivity. Clinical history: The patient is a 30 year old male w/ pmhx of ESRD on PD (started 06/2019), HTN, right sided [place] syndrome, and open cardiac surgery at age 2 , depression, who presented via family drop off for hypogastric sharp abdominal pain for past 4 days associated with + nausea and 10x non-bloody +bilious vomiting and 11 episodes of non-bloody diarrhea w. lightheadedness upon standing. Lety Theodore MD Computer Programmer Chief Clinical Core Laboratory [facility] Fluid PERITONEAL FLUID / Unknown Collection / Unknown 01/13/2021 11:39 PM CDT 01/14/2021 7:17 AM CDT Roberto Miller MD LAB - PATHOLOG Y/CYTOLOGY ORDERABLES [address] [address], [facility] [phone] * GRAM STAIN (LAB ORDERED) (01/13/2021 11:39 PM CDT) Gram Stain Moderate Gram-negative bacilli 01/14/2021 4:53 AM CDT [facility] Gram Stain Heavy Polymorphonuclear cells 01/14/2021 4:53 AM CDT [facility] Microbiology PERITONEAL FLUID / Unknown Collection / Unknown 01/13/2021 11:39 PM CDT 01/14/2021 12:31 AM CDT Leonardo Blanco MD LAB - MICROBIOLOGY ORDERABLES Performing Organization Address City/[facility]/ZIP Co de Phone Number [address] [address], [facility] [phone] * (ABNORMAL) CULTURE FLUID+GRAM STAIN (01/13/2021 11:39 PM CDT) Only the most recent of2 resultswithin the time period is included. Culture Growth from blood culture bottle Klebsiella pneumoniae(AA) HEATHER 01/15/2021 11:[address] [facility] Gram Stain Heavy Polymorphonuclear cells(AA) 01/15/2021 11:[address] [facility] Gram Stain Moderate Gram-negative bacilli(AA) 01/15/2021 11:[address] [facility] Fluid PERITONEAL DIALYSATE SPECIMEN / Unknown Collection / Unknown 01/13/2021 11:39 PM CDT 01/14/2021 12:[address] [facility] - 01/15/2021 11:34 PM CDT Gram stain previously reported and reviewed as stat test [id number] Organism Antibiotic Method Susceptibility Klebsiella pneumoniae Amikacin HEATHER <=2 ug/mL: Susceptible Klebsiella pneumoniae Ampicillin-sulbactam HEATHER 4 ug/mL: Susceptible Klebsiella pneumoniae Cefepime HEATHER <=1 ug/mL: Susceptible Klebsiella pneumoniae Ceftriaxone HEATHER <=1 ug/mL: Susceptible Klebsiella pneumoniae Ciprofloxacin HEATHER <=0.25 ug/mL: Susceptible Klebsiella pneumoniae Extended-Spectrum Beta-Lactamase HEATHER NEG ug/mL: Neg Klebsiella pneumoniae Gentamicin HEATHER <=1 ug/mL: Susceptible Klebsiella pneumoniae Meropenem HEATHER <=0.25 ug/mL: Susceptible Klebsiella pneumoniae Piperacillin-tazobactam HEATHER <=4 ug/mL: Susceptible Klebsiella pneumoniae Tobramycin HEATHER <=1 ug/mL: Susceptible Klebsiella pneumoniae Trimethoprim-sulfa methoxazol e HEATHER <=20 ug/mL: Susceptible Leonardo Blanco MD LAB - MICROBIOLOGY ORDERABLES [facility] [address] [place] [address], [facility] [phone] * XR ABDOMEN KUB (01/13/2021 9:39 PM CDT) Anatomical Region Laterality Modality Abdomen Radiographic Jeferson ging 01/13/2021 11:3 2 PM CDT Impressions 01/14/2021 10:32 AM CDT IMPRESSION: Gaseous dilation of multiple loops of small bowel measuring up to 3.7 cm with possibility of ileus or subacute obstruction is to be considered. Report dictated by Christian Vega DO (radiology special procedure tech). IDr. JUAN A MD, FRCR have personally reviewed and interpreted this examination/study. This report was electronically signed by JUAN A FARR MD, FRCR on 01/14/2021 10:32 AM . Narrative 01/14/2021 10:32 AM CDT EXAMINATION: XR ABDOMEN KUB HISTORY: R10.84: Abdominal pain, generalized COMPARISON: No prior study is available for comparison. FINDINGS: Peritoneal dialysis catheter terminates in the right upper quadrant. Vascular coils are noted within the right upper quadrant. Mildly dilation of multiple loops of small bowel within the left upper and epigastric abdomen measuring up to 3.7 cm, likely from ileus/subacute obstruction. Paucity of gas within the colon. No pneumoperitoneum or pathological calcification is seen. Procedure Note Juan A Farr MD - 01/14/2021 EXAMINATION: XR ABDOMEN KUB HISTORY: R10.84: Abdominal pain, generalized COMPARISON: No prior study is available for comparison. FINDINGS: Peritoneal dialysis catheter terminates in the right upper quadrant. Vascular coils are noted within the right upper quadrant. Mildly dilation of multiple loops of small bowel within the left upperand epigastric abdomen measuring up to 3.7 cm, likely from ileus/subacute obstruction. Paucity of gas within the colon. No pneumoperitoneum or pathological calcification is seen. IMPRESSION: Gaseous dilation of multiple loops of small bowel measuring up to 3.7 cm with possibility of ileus or subacute obstruction is to be considered. Report dictated by Christian Vega DO (radiology special procedure tech). I, Dr. JUAN A FARR MD, [facility] have personally reviewedand interpreted this examination/study. This report was electronically signed by JUAN A FARR MD, CR on 01/14/2021 10:32 AM . Melania Russell PA-C DIAGNOSTIC IMAGING O RDERABLES * (ABNORMAL) PT-INR [facility] (01/13/2021 8:31 PM CDT) PT 15.5(H) 12.1 - 14.8 Seconds 01/13/2021 9:03 PM CDT [facility] INR 1.3 See Comment 01/13/2021 9:03 PM CDT [facility] Comment:The suggested therap eutic range for standard coumadin (warfarin) therapy is an INR of 2.0-3.0. For high-risk patients (Mechanical Mitral Valve Prosthesis, etc.), the suggested prophylactic therapeutic range is an INR of 2.5-3.5. Blood BLOOD SPECIMEN / Unknown Venipuncture / Unknown 01/13/2021 8:31 PM CDT 01/13/2021 8:50 PM CDT Leonardo Blanco MD LAB - COAGULATION O RDERABLES [facility] [address] [place] [address], [facility] [phone] * LIPASE BLOOD (01/13/2021 6:20 PM CDT) Pathologist [facility] Lipase 15 8 - 78 U/L 01/13/2021 6:49 PM CDT [facility] Blood BLOOD SPECIMEN / Unknown Venipuncture / Unknown 01/13/2021 6:20 PM CDT 01/13/2021 6:27 PM CDT Leonardo Blanco MD LAB - CHEMISTRY ORD ERABLES [address] [address], [facility] [phone] * HEPATITIS C AB SCREEN RFLX NAAT QUANT (01/13/2021 6:19 PM CDT) [facility] Hepatitis C Antibody Non-react jammie Non-reac tive 01/13/2021 7:53 PM CDT [facility] Comment:Hepatitis C Antibody screen indicates no serologic evidence of past or current infection with Hepatitis C Virus. Patients with unexplained liver disease who are immunocompromised or suspected of having acute Hepatitis C infection may benefit from Nucleic Acid Test (ELMO) for Hepatitis C Viral RNA to confirm Hepatitis C status. Blood BLOOD SPECIMEN / Unknown Venipuncture / Unknown 01/13/2021 6:19 PM CDT 01/13/2021 6:26 PM CDT Leonardo Blanco MD LAB - CHEMISTRY ORD ERABLES [address] [address], [facility] [phone] * (ABNORMAL) C-REACTIVE PROTEIN (06/29/2020 3:16 AM CAUL PULLER) [facility] C-Reactive Protein 13.5(H) <=0.5 mg/dL 06/29/2020 4:29 AM CAUL PULLER [facility] Blood BLOOD SPECIMEN / Unknown Lab Venipuncture / Unknown 06/29/2020 3:16 AM CAUL PULLER 06/29/2020 4:00 AM [facility] PULLER Leopoldo Cao MD LAB - CHEMISTRY ORDE RABLES Performing Organization Address City/[facility]/ZIP Co de Phone Number [address] [address], [facility] [phone] * (ABNORMAL) ERYTHROCYTE SEDIMENTATION RATE (06/29/2020 3:16 AM CAUL PULLER) Erythrocyte Sedimentation Rate Westergren 49(H) 0 - 15 MM/HR 06/29/2020 4:08 AM [facility] Blood BLOOD SPECIMEN / Unknown Lab Venipuncture / Unknown 06/29/2020 3:16 AM CAUL PULLER 06/29/2020 3:32 AM CA[facility] PULLER Leopoldo Cao MD LAB - HEMATOLOGY ORD ERABLES Performing Organization Address [facility] [place]/[facility]/ZIP Co de Phone Number [address] [address], [place] [phone] * SARS-COV-2 (COVID-19)+INFLU A+B PCR RAPID (06/28/2020 6:08 AM CAUL PULLER) COVID-19 PCR Not detected Not detected 06/29/19 6:52 AM [facility] Influenza A Rapid ILENE Not Detected Not Detected 06/28/2020 6:52 AM [facility] Influenza B ILENE Rapid Not Detected Not Detected 06/28/2020 6:52 AM [facility] Microbiology SPECIMEN FROM NASOPHARYNGEAL STRUCTURE / Unknown Collection / Unknown 06/28/2020 6:08 AM CAUL PULLER 06/28/2020 6:26 AM CAUL PULLER [facility] - 06/28/2020 6:52 AM CAUL PULLER Influenza assay performed by Nucleic Acid Amplification. Results do not exclude the possibility of a mixed viral infection. NOTE: Detecting and identifying specific viral nucleic acids from individuals exhibiting signs and symptoms of respiratory infection aids in the diagnosis of respiratory infection, if used in conjunction with other clinical and laboratory findings. The results of this test should not be used as the sole basis for diagnosis, treatment, or patient management decisions. This nucleic acid amplification assay performance was validated by [facility]. This test has been authorized by the Food and Drug administration (FDA)under an Emergency Use Authorization (EUA). This test has been validated in accordance with the FDA's guidance document Policy for Diagnostic Testing in Laboratories Certified to perform High Complexity Testing under CLIA prior to Emergency Use Authorization for Coronavirus Disease-2019 during the Public Health Emergency issued on June 18, 2019. FDA independent review of this validation is pending. This test is only authorized for the duration of time the declaration that circumstances exist justifying the authorization of emergency use of in vitro diagnostic tests for detection of SARS-CoV-2 virus and/or diagnosis of COVID-19 infection under section 564(b)(1) of the Act, 21 U.S.C 360bbb-3 (b)(1), unless the authorization is terminated or revoked sooner. Fact Sheets for this EUA assay are available upon request. Gagandeep Bets MD [facility] [address] [address], [facility] [phone] * SUSCEPTIBILITY FUNGUS/YEAST (06/28/2020 6:07 AM CAUL PULLER) Pathologist [facility] Prelim Report SEE NOTE 07/05/2020 5:07 PM CDT [facility] ([facility]) Comment: Specimen received and in progress. YSIC Anidulafungin 2 Suscept Micafungin 1 Suscept Caspofungin 0.25 Suscept 5-Fluorocytosine <=0.06 None Posaconazole 0.016 None Voriconazole <=0.008 Suscept Itraconazole 0.03 None Fluconazole 0.25 Suscept Amphotericin B 0.25 None Performed by [employer], [address] [place] [id number] [email or web address], Agatha Vale MD, Lab. Director Final Report SEE NOTE 07/05/2020 5:07 PM CDT [facility] ([facility]) Comment: Kassidy parapsilosis Organism identified by client YSIC Anidulafungin 2 Suscept Micafungin 1 Suscept Caspofungin 0.25 Suscept 5-Fluorocytosine <=0.06 None Posaconazole 0.016 None Voriconazole <=0.008 Suscept Itraconazole 0.03 None Fluconazole 0.25 Suscept Amphotericin B 0.25 None Performed by [employer], [address] [phone] [email or web address], Agatha Vale MD, Lab. Director Fluid PERITONEAL DIALYSATE SPECIMEN / Unknown Collection / Unknown 06/28/2020 6:07 AM CAUL PULLER 06/28/2020 10:23 AM CAUL PULLER Narrative [facility] - 07/05/2020 5:07 PM CDT HEATHER=Minimum Inhibitory Concentration MEC=Minimum Effective Concentration HEATHER=Minimum Inhibitory Concentration MEC=Minimum Effective Concentration HEATHER=Minimum Inhibitory Concentration MEC=Minimum Effective Concentration Gagandeep Best MD LAB - MICROBIOLOGY O RDERABLES [facility] [address] [place] [address], [facility] * XR CHEST 1VW (06/28/2020 3:13 AM CAUL PULLER) Anatomical Region Laterality Modality Chest Radiographic Jeferson ging 06/28/2020 3:14 AM CAUL PULLER Impressions 06/28/2020 8:27 AM CAUL PULLER IMPRESSION: 1.No focal consolidation. 2.Fractures of the inferior-most median sternotomy wire. Dictated by Britany Gee DO (radiology special procedure tech). I, Dr. CHOLO TONEY MD have personally reviewed and interpreted this examination/study. This report was electronically signed by CHOLO TONEY MD on 06/28/2020 8:27 AM . Narrative 06/28/2020 8:27 AM CAUL PULLER ORDER DATE: 06/28/2020 3:14 AM EXAMINATION: XR CHEST 1VW HISTORY: R50.9: Fever, unspecified fever cause COMPARISON: No prior study is available for comparison. FINDINGS: Median sternotomy wires are present. There are fractures of the inferior-most wire. There is no focal consolidation, pleural effusion, or pneumothorax. The cardiomediastinal silhouette is normal. The visible bony thorax appears intact. Procedure Note Cholo Toney MD - 06/28/2020 ORDER DATE: 06/28/2020 3:14 AM EXAMINATION: XR CHEST 1VW HISTORY: R50.9: Fever, unspecified fever cause COMPARISON: No prior study is available for comparison. FINDINGS: Median sternotomy wires are present. There are fractures of the inferior-most wire. There is no focal consolidation, pleural effusion,or pneumothorax. The cardiomediastinal silhouette is normal. The visiblebony thorax appears intact. IMPRESSION: 1.No focal consolidation. 2.Fractures of the inferior-most median sternotomy wire. Dictated by Britany Gee DO (radiology special procedure tech). I, Dr. CHOLO TONEY MD have personally reviewed and interpreted this examination/study. This report was electronically signed by CHOLO TONEY MD on06/28/2020 8:27 AM . Gagandeep Best MD DIAGNOSTIC IMAGING O RDERABLES * LACTIC ACID BLOOD REFLEX TO REPEAT (06/28/2020 2:50 AM CAUL PULLER) Pathologist [facility] Lactic Acid-Stat 1.3 0.5 - 2.0 mmol/L 06/28/2020 3:25 AM CAUL PULLER [facility] Blood BLOOD SPECIMEN / Unknown Venipuncture / Unknown 06/28/2020 2:50 AM CAUL PULLER 06/28/2020 3:02 AM CAUL PULLER Gagandeep Best MD LAB - CHEMISTRY KRISTA CAREY [facility] Organization Address City/State/ZIP Co de Phone Number [facility] [address] [place] [phone], [facility] [phone] * (ABNORMAL) BLOOD GASES ELIDA (06/28/2020 2:50 AM CAUL PULLER) Pathologist [facility] pH Mixed Venous 7.44(H) 7.30 - 7.40 06/28/2020 3:03 AM [facility] pCO2 Mixed Venous 41 40 - 46 mmHg 06/28/2020 3:03 AM [facility] pO2 Mixed Venous 34(L) 35 - 42 mmHg 06/28/2020 3:03 AM [facility] HCO3 Mixed Venous 27.0(H) 22.0 - 26.0 mmol/L 06/28/2020 3:03 AM [facility] TCO2 Mixed Venous 28.2 25.0 - 29.0 mmol/L 06/28/2020 3:03 AM [facility] Base Excess Venous 2.6(H) -2.0 - 2.0 mmol/L 06/28/2020 3:03 AM [facility] Hemoglobin Mixed Venous 14.5 13.5 - 17.5 g/dL 06/28/2020 3:03 AM [facility] Oxyhemoglobin Mixed Venous 67.5 66.0 - 77.0 % 06/28/2020 3:03 AM [facility] Carboxyhemoglobin Venous 1.1 0.0 - 3.0 % 06/28/2020 3:03 AM [facility] Methemoglobin 0.4 0.0 - 2.0 % 06/28/2020 3:03 AM [facility] FI O2 Mixed Venous 21.0 % 2020 3:03 AM [facility] Blood BLOOD SPECIMEN / Unknown Venipuncture / Unknown 06/28/2020 2:50 AM CAUL PULLER 06/28/2020 3:01 AM CAUL PULLER Gagandeep Best MD LAB - BLOOD GASES OR DERABLES Performing Organization Address City/State/[facility] Co de Phone Number [facility] [address] [place] [address], [facility] [phone] Care Teams Television Parts Tester Relationship Specialty Start Date End Date Bernadette Robertson MD [address] [facility]/ [address] [place] [address] PCP - General 11/07/21
--- OUTSIDE RECORDS SUMMARY | 2024-06-30 00:27 | XMS_ITS | Encounter Summary ---
Author Organization [facility] Address [address] [place] [address] Care Team Providers Care [employer] Team Member Name Role Phone Bernadette Robertson MD Primary Care Provider [phone] Encounter Details Date Type Department Care Team (Late st Contact Info) Description 08/15/2021 Telephone [facility] [address] [place] [address] Cr Titus MD [address] [phone] Social History Tobacco Use Types Packs/Day Years [...] on filedocumented in this encounter Care Teams [employer] Team Member Relationship Specialty Start Date End Date Bernadette Robertson MD [address] [place] [address] PCP - General 11/07/21 documented as of this encounter
--- OUTSIDE RECORDS SUMMARY | 2024-06-30 00:27 | XMS_ITS | Clinical Summary ---
Author Organization [facility] [employer] Address [address] [facility] [place] [address] Care Team Providers Care Sales And Customer Relations Rep Name Role Phone Bernadette Robertson MD Primary Care Provider [phone] Source Comments [facility] [employer] [facility],non-owned Affiliates and Associated Physician Practices is amultiple site organization consisting of ambulatory clinics and hospital sitesin [place], [place], [place]. This disclosure is being madepursuant to the Care Everywhere program and may not contain all information available regarding this patient. Last updated 18.[facility] Allergies No known active allergies Medications * Be aware that medications may not be up to date on this document. Alwaysverify current medications with the patient. Medication Sig Dispensed Refills Start Date End Date Status vitamin D, cholecalciferol, 50 MCG (1999) tablet Take 2,000 Units by mouth once daily Active sertraline (ZOLOFT) 100 MG tablet Take 100 mg by mouth once daily Active carvedilol (COREG) 12.5 MG tablet Take 25 mg by mouth 2 times daily with morning and evening meal Active amLODIPine (NORVASC) 10 MG tablet Take 10 mg by mouth once daily Active cinacalcet (SENSIPAR) 30 MG tablet Take 30 mg by mouth daily with breakfast Active acetaminophen (TYLENOL) 500 MG tablet Take 1 (one) tablet by mouth every 6 hours as needed Maximum allowable Acetaminophen amount = 4 Grams (4000 mg) / 24 hours. 07/02/2020 Active Additional Information Patient taking differently:500 mg Oral EVERY 6 HOURS PRN,Maximum allowable Acetaminophen amount = 4 Grams (4000 mg) / 24 hours., Reported on 12/13/2021 mirtazapine (REMERON) 30 MG tablet Take 1 (one) tablet by mouth at bedtime 30 tablet 2 01/19/2021 Active polyethylene glycol 3350 (MIRALAX) 17 g packet Take 17 (seventeen) g by mouth 2 times daily 60 packet 01/19/2021 Active senna-docusate (SENOKOT-S) 8.6-50 MG tablet Take 1 (one) tablet by mouth once daily 30 tablet 01/19/2021 Active famotidine (PEPCID) 20 MG tablet Take 1 (one) tablet by mouth once daily 30 tablet 1 01/19/2021 Active sevelamer carbonate (RENVELA) 0.8 GM pwd packetIndications: Hyperphosphatemia Take 1 (one) packet by mouth 3 times daily with meals Reasons: High Amount of Phosphate in the Blood 90 packet 2 01/19/2021 Active lisinopril (PRINIVIL; ZESTRIL) 20 MG tablet Take 20 mg by mouth every evening 10/05/2021 Active patiromer (VELTASSA) 8.4 g packet Take 1 (one) packet by mouth daily [...] other oral medications 3 hours before or after. Store packets in refrigerator. 6 packet 11/06/2021 Active oxyCODONE, immediate release, (Roxicodone) 5 MG tablet Take 1 (one) tablet by mouth every 6 hours as needed for Pain 12 tablet 12/13/2021 Active Active Problems Problem Noted Date Diagnosed Date Pre-transplant evaluation for kidney transplant 05/15/2021 Overview (05/15/2021): Chantel Kim 1990 Referring File Clerk: Merlin Quezada Listing Date: Dialysis Info: Type: Time: 746 days ( 04/30/2019) Blood Type: O POS Body mass index is 18.42 kg/m . ALERTS Shipping/Receiving Manager: Past Medical History: Diagnosis Date Chronic kidney disease Depression psychiatrist Dr. Tash Saucedo once a month 5-6 months. Difficulty swallowing difficult swallowing large pills. 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 Suicidal ideation Suicide attempt 2016 was not hospitalized. Past Surgical History: Procedure Laterality Date Heart Valve Surgery 1993 born with hole in heart, had open heart surgery at [facility]. No longer follows with a director underwriter sales INSERTION DIALYSIS CATHETER N/A 03/12/2021 N/A; LAPAROSCOPIC PLACEMENT PERITONEAL DIALYSIS CATHETER AND LYSIS OF ADHESIONS IR PERITONEAL TUNNEL CATH PLACE 08/22/[address]ATH PL[address] 08/22/2020 Efra Ontiveros MD [facility] [address] IVR IR PERITONEAL TUNNEL CATH PLACE 02/25/[address] CATH [address] 02/25/2021 Efra Ontiveros MD [facility] [address] IVR REMOVAL FOREIGN BODY N/A 06/30/2020 N/A; PD Catheter Removal Renal Biopsy 2019 [facility] Social History Socioeconomic History Marital status: Single Spouse name: Not on file Number of children: Not on file Years of education: Not on file Highest education level: Not on file Occupational History Not on file Tobacco Use Smoking status: Former Smoker Packs/day: 0.50 Years: 10.00 Pack years: 5.00 Types: Cigarettes Quit date: 01/13/2021 Years since quittin.3 Smokeless tobacco: Never Used Vaping Use Vaping Use: Never used Substance and Sexual Activity Alcohol use: Yes Comment: occasional Drug use: Yes Frequency: 4.0 times per week Types: Marijuana, Other Comment: edibles 3 days ago, varies, mushrooms 3 days ago Sexual activity: Not on file Other Topics Concern Not on file Social History Narrative Not on file Social Determinants of Health Financial Resource Strain: Not on file Food Insecurity: Not on file Transportation Needs: Not on file Physical Activity: Not on file Stress: Not on file Social Connections: Not on file Intimate Partner Violence: Not on file Housing Stability: Not on file Transplant Surgery Clinic Appt w/: Date: A/P: Nephrology Clinic Appt w/: Date: A/P: Other Consults: Pertinent Previous Committee Presentations: Labs: PTH: A1c: Glucose: GFR: PSA: Serologies: CMV Igg: EBV Igg: Varicella: MMR: Toxo: Strongyloides: Albumin: Tox Screen: PRA: Class 1 Class 2 Kidney Biopsy: Echo: DSE: Treadmill Stress: LHC: CXR: CT abd/pelvis non-contrast: Renal US: LE arterial doppler: LE venous doppler: Carotid US: PPD: Colonoscopy: Panorex/Dental: SW: 05/01/2021 Mental Functional Status: Patient is alert and oriented at time of assessment and presents with appropriate mood and affect. Patient states he has attempted suicide twice both times with pills. Patient states both times were due to relationships, depression, and insecurities. Patient states to [facility] he has suicidal ideations. Patient is not under the care of a counselor, therapist, or psychiatrist. Patient states he is seeing a counselor, Dr. Tash Saucedo. Upon further research, she is a CREW TEAM MEMBER who prescribes his medications. Patient states he went to [facility] in [place] but thinks they dropped them because he missed an appointment. Patient states he has MDD. Patient questioned the assessment questions. When TEMPER MILL OPERATOR mentioned obtaining records from [facility], patient asked why it was necessary. Patient felt those records were personal. Coping style, skills, and adaptation to illness: Patient sleeps to cope with stress. Patient states he uses melatonin and edibles to help him sleep. Patient states some of his stressors are the future, the past, and transplant Clinical Social Work Impression: It is the impression of this social media editor that Chantel Kim has several positive factors for Kidney transplant candidacy including sufficient insurance coverage, adequate support system, and appropriate discharge plan. - Patient states he has MDD. Attempted suicide twice in the last 10 years due to relationships, depression, and insecurities. Patient uses edibles to help him cope, and sleep. Patient states his stressors are the future, the past, and transplant. Plan: wallboard worker to provide supportive services as needed. Patient appears to be a reasonable candidate for transplant from a psychosocial perspective. Post transplant arrangement forms are needed prior to being listed. Psychiatric Consult Recommended: Yes related to:Substance Abuse, Unstable Mental Health, Coping Strategies and Comprehension Concerns. 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 Resolved Problems Problem Noted Date Diagnosed Date Resolved Date Fever 06/28/2020 07/12/2020 Immunizations Name Administration Dates Next Due DEDRA GOEL PRIMARY 18+YR 07/05/2020 FLU VACCINE QUAD IIV4 PF ID 01/23/2020 HEP B VACCINE, ADULT 3 DOSE 01/23/2020, 0,09/16/2019,08/11/2019 PNEUMOCOCCAL PCV VACCINE 01/23/2020 Pneumococcal Pcv13 Conj 10/25/2019 Family History Medical History Relation Name Comments Hypertension Mother Relation Name Status Comments Brother Alive Daughter Alive Father Alive Mother Alive Sister Alive Social History Tobacco Use Types Packs/Day Years [...] Mass Index 19.19 02/04/2022 1:21 PM CDT Plan of Treatment Health Maintenance Due Date Last Done Comments MEDICARE AWV 12 MONTHS 1989 DTAP/TDAP/TD VACCINES (1 - Tdap) 2008 COVID-19 VACCINE (2 - season) 2023 07/05/2020 INFLUENZA VACCINE (#1) 2023 01/23/2020 DEPRESSION SCREENING 04/20/2024 ZOSTER VACCINE (1 of 2) 2039 HEPATITIS B VACCINE Completed 01/23/2020, 10/04/2019, 09/16/2019, Additional history exists PNEUMOCOCCAL VACCINE Aged Out 01/23/2020, 10/25/19 20 No longer eligible based on patient's age to complete this topic HEPATITIS C SCREENING Completed 05/01/2021, 021 HIV SCREENING Completed 05/01/2021, 01/13/2021 HIB VACCINE Aged Out No longer eligi ble based on patient's age to complete this topic HPV VACCINE Aged Out No longer eligi ble based on patient's age to complete this topic MENINGOCOCCAL (Group B) VACCINE SHARED DECISION-MAKING Aged Out No longer eligible based on patient's age to complete this topic MENINGOCOCCAL GROUPS A/C/Y/W VACCINE Aged Out No longer eligible based on patient's age to complete this topic Medical Devices Implanted Type Area Frame Nailer Device Identifier Shelf Expiration Date Model / Serial / Lot Kit Durathane Drflw Embosafe Chrnc Dlys Implanted:Qty: 1 on 06/29/2020 at [facility] Right: Chest Wall [employer] 08/17/2022 [id number] / / [id number] Kit Durathane Drflw Embosafe Chrnc Dlys Implanted:Qty: 1 on 01/17/2021 at [facility] Right: Chest Wall [employer] 05/20/2023 [id number] / / [id number] Description: Peritoneal Dialysis Catheter Implanted:Qty: 1 on 03/12/2021 by Cr Titus MD at [facility] N/A: Abdomen 05/17/2024 [id number] / / [id number] Procedures Procedure Name Priority Date/Time Associated Diagnosis Comments HEPATITIS C ANTIBODY Routine 05/01/2021 9:21 AM WEAPONS AND TACTICS INSTRUCTOR Pre-transplant evaluation for kidney transplant HIV-1 HIV-2 ANTIBODY + HIV P24 AG PANEL Routine 05/01/2021 9:21 AM WEAPONS AND TACTICS INSTRUCTOR Pre-transplant evaluation for kidney transplant from Last 3 Months or Most Recently Relevant to Health Maintenance Results * HIV-1 HIV-2 ANTIBODY + HIV P24 AG PANEL (05/01/2021 9:21 AM WEAPONS AND TACTICS INSTRUCTOR) HIV Antigen/Antibod y 1 & 2 Non-reacti ve Non-react jammie 05/01/2021 11:08 AM WEAPONS AND TACTICS INSTRUCTOR [facility] Comment:No Laboratory eviden ce of HIV infection. Blood BLOOD SPECIMEN / Unknown Lab Venipuncture / Unknown 05/01/2021 9:21 AM WEAPONS AND TACTICS INSTRUCTOR 05/01/2021 9:48 AM WEAPONS AND TACTICS INSTRUCTOR Alexandra Ramachandran MD LAB - CHEMISTRY KRISTA CAREY Performing Organization Address City/[facility]/ZIP Co de Phone Number [address] [address], [facility] [phone] * HEPATITIS C ANTIBODY (05/01/2021 9:21 AM WEAPONS AND TACTICS INSTRUCTOR) Hepatitis C Antibody Non-react jammie Non-reac tive 05/01/2021 11:08 AM WEAPONS AND TACTICS INSTRUCTOR [facility] Comment:Hepatitis C Antibody screen indicates no serologic evidence of past or current infection with Hepatitis C Virus. Patients with unexplained liver disease who are immunocompromised or suspected of having acute Hepatitis C infection may benefit from Nucleic Acid Test (ELMO) for Hepatitis C Viral RNA to confirm Hepatitis C status. Blood BLOOD SPECIMEN / Unknown Lab Venipuncture / Unknown 05/01/2021 9:21 AM WEAPONS AND TACTICS INSTRUCTOR 05/01/2021 9:48 AM WEAPONS AND TACTICS INSTRUCTOR Alexandra Ramachandran MD LAB - CHEMISTRY KRISTA CAREY [address] [address], [facility] [phone] from Last 3 Months or Most Recently Relevant to Health Maintenance Advance Directives * Full Code (Latest Code Status on File) Date Activated Date Inactivated Comments 01/14/2021 12:11 AM 01/19/2021 2:47 PM * Full Code Date Activated Date Inactivated Comments 06/28/2020 3:21 PM 07/02/2020 2:26 PM Care Teams Sales And Customer Relations Rep Relationship Specialty Start Date End Date Bernadette Robertson MD [address] [facility]/ [address] [place] [phone] PCP - General 11/07/21
--- OUTSIDE RECORDS SUMMARY | 2024-06-30 00:27 | XMS_ITS | Encounter Summary ---
Author Organization [facility] Address [address] [place] [address] Care Team Providers Care Compensation Expert Name Role Phone Bernadette Robertson MD Primary Care Provider [phone] Encounter Details Date Type Department Care Team (Late st Contact Info) Description 03/05/2021 Telephone [facility] [address] [place] [address] Cr Titus MD [address] [place] [phone] Social History Tobacco Use Types Packs/Day Years [...] on filedocumented in this encounter Care Teams Compensation Expert Relationship Specialty Start Date End Date Bernadette Robertson MD [address] [place] [address] PCP - General 11/07/21 documented as of this encounter
--- OUTSIDE RECORDS SUMMARY | 2024-06-30 00:27 | XMS_ITS | Encounter Summary ---
Author Organization [facility] Address [address] [facility] [place] [address] Care Team Providers Care Booth Manager Name Role Phone Bernadette Robertson MD Primary Care Provider [phone] Encounter Details Date Type Department Care Team (Late st Contact Info) Description 08/14/2021 Telephone [facility] [address] [place] [address] Cr Titus MD [address] [phone] Social History Tobacco Use Types Packs/Day Years [...] on filedocumented in this encounter Care Teams Booth Manager Relationship Specialty Start Date End Date Bernadette Robertson MD [address] [place] [address] PCP - General 11/07/21 documented as of this encounter
--- OUTSIDE RECORDS SUMMARY | 2024-06-30 00:27 | XMS_ITS | Encounter Summary ---
Author Organization [facility] Address [address] [place] [address] Care Team Providers Care Voice Engineer Name Role Phone Bernadette Robertson MD Primary Care Provider [phone] Bernadette Robertson MD Primary Care Provider [phone] Encounter Details Date Type Department Care Team (Late st Contact Info) Description 03/04/2021 Telephone [facility] [address] [place] [address] Cr Titus MD [address] [phone] Social History Tobacco Use Types Packs/Day Years [...] on filedocumented in this encounter Care Teams Voice Engineer Relationship Specialty Start Date End Date Bernadette Robertson MD [address] [facility] [address] PCP - General 07/02/20 03/04/21 Bernadette Robertson MD [address] [place] [place] [address] PCP - General 11/07/21 documented as of this encounter
--- OUTSIDE RECORDS SUMMARY | 2024-06-30 00:27 | XMS_ITS | Referral Summary ---
Author Organization [facility] Address [address] [place] [address] Care Team Providers Care Histologist Technologist Name Role Phone Bernadette Robertson MD Primary Care Provider [phone] Source Comments [facility],non-owned Affiliates and Associated Physician Practices is amultiple site organization consisting of ambulatory clinics and hospital sitesin [place], [place], [place] and [place]. This disclosure is being madepursuant to the Care Everywhere program and may not contain all information available regarding this patient. Last updated 18.[facility] Allergies No known active allergies Medications * [...] 05/15/2021 Overview (05/15/2021): Chantel Kim 1990 Referring Trucker Hand: Merlin Quezada Listing Date: Dialysis Info: Type: Time: 746 days ( 04/30/2019) Blood Type: O POS Body mass index is 18.42 kg/m . ALERTS Machine I Engraver: Past Medical History: Diagnosis Date Chronic kidney disease Depression psychiatrist Dr. Tash Saucedo once a month 5-6 months. Difficulty swallowing difficult swallowing large pills. 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 Suicidal ideation Suicide attempt 2016 was not hospitalized. Past Surgical History: Procedure Laterality Date Heart Valve Surgery 1993 born with hole in heart, had open heart surgery at [facility]. No longer follows with a bisque kiln drawer INSERTION DIALYSIS CATHETER N/A 03/12/2021 N/A; LAPAROSCOPIC PLACEMENT PERITONEAL DIALYSIS CATHETER AND LYSIS OF ADHESIONS IR PERITONEAL TUNNEL CATH PLACE 08/22/[address] 08/22/2020 Efra Ontiveros MD [facility] IVR IR PERITONEAL TUNNEL CATH PLACE 02/25/[address] CATH [address] 02/25/2021 Efra Ontiveros MD [facility] IVR REMOVAL FOREIGN BODY N/A 06/30/2020 N/A; PD Catheter Removal Renal Biopsy 2019 [facility] Renal [facility] Social History Socioeconomic History Marital status: Single [...] relationships, depression, and insecurities. Patient states to [facility] he has suicidal ideations. Patient is not under the care of a counselor, therapist, or psychiatrist. Patient states he is seeing a counselor, Dr. Tash Saucedo. Upon further research, she is a FREIGHT BRAKEMAN who prescribes his medications. Patient states he went to [facility] in [place] but thinks they dropped them because he missed an appointment. Patient states he has MDD. Patient questioned the assessment questions. When WARP DRESSER mentioned obtaining records from [facility], patient asked why it was necessary. Patient felt those records were personal. Coping style, skills, and adaptation to illness: Patient sleeps to cope with stress. Patient states he uses melatonin and edibles to help him sleep. Patient states some of his stressors are the future, the past, and transplant Clinical Social Work Impression: It is the impression of this oncology social worker that Chantel Kim has several positive factors for Kidney transplant candidacy including sufficient insurance coverage, adequate support system, and appropriate discharge plan. - Patient states he has MDD. Attempted suicide twice in the last 10 years due to relationships, depression, and insecurities. Patient uses edibles to help him cope, and sleep. Patient states his stressors are the future, the past, and transplant. Plan: social worker delinquency prevention to provide supportive services as needed. Patient appears to be a reasonable candidate for transplant from a psychosocial perspective. Post transplant arrangement forms are needed prior to being listed. Psychiatric Consult Recommended: Yes related to:Substance Abuse, Unstable Mental Health, Coping Strategies and Comprehension Concerns. 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 No 12/13/2021 Is person blind or have serious difficulty seein g? No 12/13/2021 Does person have serious dif ficulty walking/climbing stairs? No 12/13/2021 Does person have difficulty dressing/bathing? No 12/13/2021 Does person have difficulty doing errands alone? No 12/13/2021 Cognitive Status Response Date of Assessm ent Does person have difficulty concentrating/remembering/making decisions? No 12/13/2021 Plan of Treatment Not on file Medical Devices Implanted Type Area Biodiesel Operations Manager Device Identifier Shelf Expiration Date Model / Serial / Lot Kit Durathane Drflw Embosafe Chrnc Dlys Implanted:Qty: 1 on 06/29/2020 at [facility] Right: Chest [employer] 08/17/2022 [id number] / / [id number] Kit Durathane Drflw Embosafe Chrnc Dlys Implanted:Qty: 1 on 01/17/2021 at [facility] Right: Chest [employer] 05/20/2023 [id number] / / [id number] Description: Peritoneal Dialysis Catheter Implanted:Qty: 1 on 03/12/2021 by Cr Titus MD at [facility] N/A: Abdomen 05/17/2024 [id number] / / [id number] Procedures Procedure Name Priority Date/Time Associated Diagnosis Comments HEPATITIS C ANTIBODY Routine 05/01/2021 9:21 AM ZIPPER SETTER LOCKSTITCH Pre-transplant evaluation for kidney transplant HIV-1 HIV-2 ANTIBODY + HIV P24 AG PANEL Routine 05/01/2021 9:21 AM ZIPPER SETTER LOCKSTITCH Pre-transplant evaluation for kidney transplant from Last 3 Months or Most Recently Relevant to Health Maintenance Results * HIV-1 HIV-2 ANTIBODY + HIV P24 AG PANEL (05/01/2021 9:21 AM ZIPPER SETTER LOCKSTITCH) HIV Antigen/Antibod y 1 & 2 Non-reacti ve Non-react jammie 05/01/2021 11:08 AM ZIPPER SETTER LOCKSTITCH [facility] Comment:No Laboratory eviden ce of HIV infection. Blood BLOOD SPECIMEN / Unknown Lab Venipuncture / Unknown 05/01/2021 9:21 AM ZIPPER SETTER LOCKSTITCH 05/01/2021 9:48 AM ZIPPER SETTER LOCKSTITCH Alexandra Ramachandran MD LAB - CHEMISTRY [facility] [address] [place] [id number], [place] [phone] * HEPATITIS C ANTIBODY (05/01/2021 9:21 AM ZIPPER SETTER LOCKSTITCH) Hepatitis C Antibody Non-react jammie Non-reac tive 05/01/2021 11:08 AM ZIPPER SETTER LOCKSTITCH [facility] Comment:Hepatitis C Antibody screen indicates no serologic evidence of past or current infection with Hepatitis C Virus. Patients with unexplained liver disease who are immunocompromised or suspected of having acute Hepatitis C infection may benefit from Nucleic Acid Test (ELMO) for Hepatitis C Viral RNA to confirm Hepatitis C status. Blood BLOOD SPECIMEN / Unknown Lab Venipuncture / Unknown 05/01/2021 9:21 AM ZIPPER SETTER LOCKSTITCH 05/01/2021 9:48 AM ZIPPER SETTER LOCKSTITCH Alexandra Ramachandran MD LAB - CHEMISTRY [facility] [address] [address], [place] [phone] from Last 3 Months or Most Recently Relevant to Health Maintenance Administered Medications Advance Directives * Full Code (Latest Code Status on File) Date Activated Date Inactivated Comments 01/14/2021 12:11 AM 01/19/2021 2:47 PM * Full Code Date Activated Date Inactivated Comments 06/28/2020 3:21 PM 07/02/2020 2:26 PM Care Teams Histologist Technologist Relationship Specialty Start Date End Date Bernadette Robertson MD [address] [place] [address] PCP - General 11/07/21
--- OUTSIDE RECORDS SUMMARY | 2024-06-30 00:27 | XMS_ITS | Encounter Summary ---
Author Organization [facility] Address [address] [place] [address] Care Team Providers Care Blankmaker Name Role Phone Bernadette Robertson MD Primary Care Provider [phone] Bernadette Robertson MD Primary Care Provider [phone] Encounter Details Date Type Department Care Team (Late st Contact Info) Description 03/04/2021 Telephone [facility] General [facility] [address] [place] [address] Cr Titus MD [address] [id number] Social History Tobacco Use Types Packs/Day Years [...] on filedocumented in this encounter Care Teams Blankmaker Relationship Specialty Start Date End Date Bernadette Robertson MD [address] [place] [address] PCP - General 07/02/20 03/04/21 Bernadette Robertson MD [address] [place] [address] PCP - General 11/07/21 documented as of this encounter
--- OUTSIDE RECORDS SUMMARY | 2024-06-30 00:29 | XMS_ITS ---
Author Organization [facility] ([facility]) Address [facility] [address] [address] Care Team Providers Care Hone Operator Name Role Phone Unavailable Unavailable Unavailable Allergies, Adverse Reactions, Alerts Allergy Name Allergy Type Status Severity Reaction(s) Onset Date Inactive Date Treating Clinician Comments No Known Allergies Allergy Active 2022-01 20:44:2 3 Medications Ordered Medication Name Filled Medication Name Start Date Stop Date Current Medication? Ordering Clinician Indication Dosage Frequency Signature (SIG) Comments Components calcitriol 06-27 19:13: 18 Yes [id number] Number of Repeats Allowed: Frequency: Three times a week Mircera 06-12 16:06: 45 Yes [id number] Number of Repeats Allowed: Frequency: MARY JO dosing, every two weeks Parsabiv 6- 13:57: 02 Yes [id number] Number of Repeats Allowed: Frequency: Three times a week Venofer 09-12 19:51: 42 Yes [id number] Number of Repeats Allowed: Frequency: One time a weekDosesO rdered: Maintenanc e Dose 50 Milligram Route: Intravenou s traZODone HCl 2022-04 18:09: 18 Yes Number of Repeats Allowed: Frequency: Once a day, at bedtime Lokelma 07 14:47: 41 Yes Number of Repeats Allowed: Frequency: One time a day Normal Saline Solution 0.9% NaCl 2021-04 06:00: 00 Yes [id number] Number of Repeats Allowed: Frequency: As needed EpiPen 2-Garfield 2021-04 06:00: 00 Yes [id number] Number of Repeats Allowed: Frequency: Every 4 hours as needed Oxygen 2021-04 06:00: 00 Yes [id number] Number of Repeats Allowed: Frequency: As needed acetaminoph en 2021-04 06:00: 00 Yes [id number] Number of Repeats Allowed: Frequency: Every 4 hours as needed heparin sodium, porcine 2021-04 06:00: 00 Yes [id number] Number of Repeats Allowed: Frequency: Every Dialysis TreatmentD osesOrdere d: Loading Dose 1600 Units 1:1000 Units/mLRo modoc: Intravenou s ondansetron hydrochlori de 2021-04 06:00: 00 Yes [id number] Number of Repeats Allowed: Frequency: Every 4 hours as needed diphenhydra mine hydrochlori de 2021-04 06:00: 00 Yes [id number] Number of Repeats Allowed: Frequency: Every 4 hours as needed clonidine 2021-04 06:00: 00 Yes [id number] Number of Repeats Allowed: Frequency: Every 4 hours as needed diphenhydra mine hydrochlori de 2021-04 06:00: 00 Yes [id number] Number of Repeats Allowed: Frequency: Every 4 hours as needed heparin sodium, porcine 2021-04 06:00: 00 Yes [id number] Number of Repeats Allowed: Frequency: Every Dialysis TreatmentD osesOrdere d: Hourly Dose 600 Units/Hr 1:1000 Units/mLRo modoc: Intravenou s Melatonin 5-16 05:00: 00 Yes Number of Repeats Allowed: Frequency: Once a day, at bedtime Acetaminoph en 2020-04 0-04 05:00: 00 Yes Number of Repeats Allowed: Frequency: As needed Mirtazapine 2020-04 0-04 05:00: 00 Yes Number of Repeats Allowed: Frequency: Once a day, at bedtime Sertraline HCl 2020-04 0-04 05:00: 00 Yes Number of Repeats Allowed: Frequency: One time a day Problems This patient has no known problems. Procedures Procedure Date / Time Performed Performing Clinician Gwendolyn ce Details AV Fistula 2021-12-13 05:00:00 Access Site Upper Arm (Left) Central Venous Catheter (CVC)2021-01-17 05:00:00 Access Site Chest (Right) Access Use Start Date 2021-01-22 05:00:0 0 Access Use End Date 2022-03-05 06:00:00 DIALYSIS TREATMENT INFORMATION Conventional Hemodialysis Date Type Treatment Start Date Treatment End Date Pre-Treatment Vitals Post-Treatment Vitals Weight Gain BFR DFR Actual UF Dialysis Access June 28, 2024 In-Ce nter Hemod ialys is Treat ment 2024-06-28 T10:52:15. 000Z 2024-06-28 T14:01:00. 000Z BP Sitting (Pre-Dialysis) 196/107 mmHg BP Sitting (Post-D ialysis ) 150/ 77 mmHg BP Standing (Pre-Dialysis) 174/113 mmHg BP Standing (P ost-Dialysis) 162/90 mmHg Sitting Heart Rate Pre-Dialysis 63 BPM Sitting Heart Rate Post-Dialysis 68 BPM Standing Heart Rate Pre-Dialysis 65 BPM Standing Heart Rate Post-Dialysis 67 BPM Temperature Pre-Dialysis 97.4 degF Temperature Post -Dialysis 99 degF June 25, 2024 In-Center Hemodialysis Treatment 9195-13-59V01:44:00.000Z 7975-54-49E48:47:13.000Z BP Sitting (Pre-Dialysis) 180/106 mmHg BP Sitting (Post-Dialysis) 152/89 mmHg Concurrent Access: falseAV Fistula Upper Arm (Left) Arterial BP Standing (Pre-Dialysis) 167/108 mmHg Sitti ng Heart Rate Post-Dialysis 65 BPM Sitting Heart Rate Pre-Dialysis 66 BPM Temperatu re Post-Dialysis 99.1 degF Standing Heart Rate Pre-Dialysis 69 BPM Temperature Pre-Dialysis 97.7 degF June 23, 2024 In-Center Hemodialysis Treatment 0756-99-10E18:50:58.000Z 1845-40-28A25:00:08.000Z BP Sitting (Pre-Dialysis) 172/102 mmHg BP Sitting (Post-Dialysis) 135/64 mmHg Concurrent Access: falseAV Fistula Upper Arm (Left) Arterial BP Standing (Pre-Dialysis) 167/104 mmHg BP Standing (P ost-Dialysis) 150/82 mmHg Sitting Heart Rate Pre-Dialysis 70 BPM Sitting Heart Rate Post-Dialysis 67 BPM Standing Heart Rate Pre-Dialysis 69 BPM Standing Heart Rate Post-Dialysis 70 BPM Temperature Pre-Dialysis 98.1 degF Temperature Post -Dialysis 96.7 degF June 21, 2024 In-Center Hemodialysis Treatment 4766-73-96H94:55:00.000Z 0147-39-68L79:50:37.000Z BP Sitting (Pre-Dialysis) 174/104 mmHg BP Sitting (Post-Dialysis) 146/76 mmHg Concurrent Access: falseAV Fistula Upper Arm (Left) Arterial BP Standing (Pre-Dialysis) 177/110 mmHg BP Standing (P ost-Dialysis) 134/75 mmHg Sitting Heart Rate Pre-Dialysis 65 BPM Sitting Heart Rate Post-Dialysis 69 BPM Standing Heart Rate Pre-Dialysis 66 BPM Standing Heart Rate Post-Dialysis 70 BPM Temperature Pre-Dialysis 98 degF Temperature Post -Dialysis 98.7 degF June 18, 2024 In-Center Hemodialysis Treatment 9863-09-06W98:07:50.000Z 2696-01-49Z57:06:10.000Z BP Sitting (Pre-Dialysis) 174/106 mmHg BP Sitting (Post-Dialysis) 135/76 mmHg Concurrent Access: falseAV Fistula Upper Arm (Left) Arterial BP Standing (Pre-Dialysis) 173/100 mmHg BP Standing (P ost-Dialysis) 148/78 mmHg Sitting Heart Rate Pre-Dialysis 70 BPM Sitting Heart Rate Post-Dialysis 66 BPM Standing Heart Rate Pre-Dialysis 71 BPM Standing Heart Rate Post-Dialysis 71 BPM Temperature Pre-Dialysis 98.1 degF Temperature Post -Dialysis 98.3 degF June 16, 2024 In-Center Hemodialysis Treatment 4988-09-50Z31:48:00.000Z 5545-56-89P98:53:52.000Z BP Sitting (Pre-Dialysis) 170/103 mmHg BP Sitting (Post-Dialysis) 126/64 mmHg Concurrent Access: falseAV Fistula Upper Arm (Left) Arterial BP Standing (Pre-Dialysis) 167/92 mmHg BP Standing (P ost-Dialysis) 133/75 mmHg Sitting Heart Rate Pre-Dialysis 65 BPM Sitting Heart Rate Post-Dialysis 71 BPM Standing Heart Rate Pre-Dialysis 65 BPM Standing Heart Rate Post-Dialysis 71 BPM Temperature Pre-Dialysis 98.1 degF Temperature Post -Dialysis 98.7 degF June 14, 2024 In-Center Hemodialysis Treatment 0501-70-26Q76:54:01.000Z 3256-57-49X13:55:16.000Z BP Sitting (Pre-Dialysis) 176/107 mmHg BP Sitting (Post-Dialysis) 145/81 mmHg Concurrent Access: falseAV Fistula Upper Arm (Left) Arterial BP Standing (Pre-Dialysis) 178/109 mmHg BP Standing (P ost-Dialysis) 148/77 mmHg Sitting Heart Rate Pre-Dialysis 65 BPM Sitting Heart Rate Post-Dialysis 69 BPM Standing Heart Rate Pre-Dialysis 65 BPM Standing Heart Rate Post-Dialysis 72 BPM Temperature Pre-Dialysis 98.1 degF Temperature Post -Dialysis 98.6 degF June 11, 2024 In-Center Hemodialysis Treatment 5170-23-65F23:51:00.000Z 3900-03-37I00:43:00.000Z BP Sitting (Pre-Dialysis) 182/121 mmHg BP Sitting (Post-Dialysis) 174/82 mmHg Concurrent Access: falseAV Fistula Upper Arm (Left) Arterial BP Standing (Pre-Dialysis) 188/113 mmHg BP Standing (P ost-Dialysis) 174/82 mmHg Sitting Heart Rate Pre-Dialysis 70 BPM Sitting Heart Rate Post-Dialysis 71 BPM Standing Heart Rate Pre-Dialysis 74 BPM Standing Heart Rate Post-Dialysis 71 BPM Temperature Pre-Dialysis 98 degF Temperature Post -Dialysis 98 degF June 09, 2024 In-Center Hemodialysis Treatment 8469-66-80U01:03:00.000Z 8713-51-16M86:12:20.000Z BP Sitting (Pre-Dialysis) 166/103 mmHg BP Sitting (Post-Dialysis) 144/72 mmHg Concurrent Access: falseAV Fistula Upper Arm (Left) Arterial BP Standing (Pre-Dialysis) 184/112 mmHg BP Standing (P ost-Dialysis) 146/84 mmHg Sitting Heart Rate Pre-Dialysis 67 BPM Sitting Heart Rate Post-Dialysis 77 BPM Standing Heart Rate Pre-Dialysis 67 BPM Standing Heart Rate Post-Dialysis 69 BPM Temperature Pre-Dialysis 97.7 degF Temperature Post -Dialysis 98.7 degF June 07, 2024 In-Center Hemodialysis Treatment 3145-77-27D67:49:00.000Z 8887-39-52D21:48:00.000Z BP Sitting (Pre-Dialysis) 202/126 mmHg BP Sitting (Post-Dialysis) 151/72 mmHg Concurrent Access: falseAV Fistula Upper Arm (Left) Arterial BP Standing (Pre-Dialysis) 199/116 mmHg BP Standing (P ost-Dialysis) 168/96 mmHg Sitting Heart Rate Pre-Dialysis 66 BPM Sitting Heart Rate Post-Dialysis 66 BPM Standing Heart Rate Pre-Dialysis 66 BPM Standing Heart Rate Post-Dialysis 67 BPM Temperature Pre-Dialysis 98.2 degF Temperature Post -Dialysis 99.2 degF June 04, 2024 In-Center Hemodialysis Treatment [id number]:06:52.000Z 0287-14-57M08:51:27.000Z BP Sitting (Pre-Dialysis) 152/90 mmHg BP Sitting (Post-Dialysis) 161/85 mmHg Concurrent Access: falseAV Fistula Upper Arm (Left) Arterial Sitting Heart Rate Pre-Dialysis 56 BPM BP Standi ng (Post-Dialysis) 179/95 mmHg Temperature Pre-Dialysis 98 degF Sitting Heart Ra te Post-Dialysis 66 BPM Standing Heart Rate Post-Yasmeen lysis 69 BPM Temperature Post-Dialysis 99 .1 degF June 02, 2024 In-Center Hemodialysis Treatment 3024-55-44J93:10:29.000Z 8886-46-50T56:40:29.000Z BP Sitting (Pre-Dialysis) 181/100 mmHg BP Sitting (Post-Dialysis) 123/62 mmHg Concurrent Access: falseAV Fistula Upper Arm (Left) Arterial BP Standing (Pre-Dialysis) 174/106 mmHg BP Standing (P ost-Dialysis) 131/69 mmHg Sitting Heart Rate Pre-Dialysis 65 BPM Sitting Heart Rate Post-Dialysis 68 BPM Standing Heart Rate Pre-Dialysis 68 BPM Standing Heart Rate Post-Dialysis 74 BPM Temperature Pre-Dialysis 98 degF Temperature Post -Dialysis 97.3 degF May 31, 2024 In-Center Hemodialysis Treatment 1432-29-50I37:55:00.000Z 0307-42-37H20:57:57.000Z BP Sitting (Pre-Dialysis) 181/107 mmHg BP Sitting (Post-Dialysis) 129/62 mmHg Concurrent Access: falseAV Fistula Upper Arm (Left) Arterial BP Standing (Pre-Dialysis) 185/105 mmHg BP Standing (P ost-Dialysis) 139/72 mmHg Sitting Heart Rate Pre-Dialysis 70 BPM Sitting Heart Rate Post-Dialysis 72 BPM Standing Heart Rate Pre-Dialysis 74 BPM Standing Heart Rate Post-Dialysis 71 BPM Temperature Pre-Dialysis 97.8 degF Temperature Post -Dialysis 97.3 degF May 28, 2024 In-Center Hemodialysis Treatment 0219-63-28D86:58:52.000Z 5659-91-90T62:05:07.000Z BP Sitting (Pre-Dialysis) 176/120 mmHg BP Sitting (Post-Dialysis) 129/63 mmHg Concurrent Access: falseAV Fistula Upper Arm (Left) Arterial BP Standing (Pre-Dialysis) 178/111 mmHg Sitti ng Heart Rate Post-Dialysis 68 BPM Sitting Heart Rate Pre-Dialysis 74 BPM Temperatu re Post-Dialysis 97 degF Standing Heart Rate Pre-Dialysis 71 BPM Temperature Pre-Dialysis 98.4 degF May 26, 2024 In-Center Hemodialysis Treatment 4392-17-15T78:11:14.000Z 9513-43-08J95:14:09.000Z BP Sitting (Pre-Dialysis) 158/100 mmHg BP Sitting (Post-Dialysis) 132/69 mmHg Concurrent Access: falseAV Fistula Upper Arm (Left) Arterial BP Standing (Pre-Dialysis) 168/98 mmHg BP Standing (P ost-Dialysis) 132/69 mmHg Sitting Heart Rate Pre-Dialysis 66 BPM Sitting Heart Rate Post-Dialysis 74 BPM Standing Heart Rate Pre-Dialysis 67 BPM Standing Heart Rate Post-Dialysis 72 BPM Temperature Pre-Dialysis 98.3 degF Temperature Post -Dialysis 98.6 degF May 24, 2024 In-Center Hemodialysis Treatment 7728-40-23U24:56:00.000Z 0204-45-32R35:04:00.000Z BP Sitting (Pre-Dialysis) 170/117 mmHg BP Sitting (Post-Dialysis) 127/67 mmHg Concurrent Access: falseAV Fistula Upper Arm (Left) Arterial BP Standing (Pre-Dialysis) 179/120 mmHg BP Standing (P ost-Dialysis) 140/61 mmHg Sitting Heart Rate Pre-Dialysis 67 BPM Sitting Heart Rate Post-Dialysis 75 BPM Standing Heart Rate Pre-Dialysis 69 BPM Standing Heart Rate Post-Dialysis 81 BPM Temperature Pre-Dialysis 98.1 degF Temperature Post -Dialysis 98.2 degF May 21, 2024 In-Center Hemodialysis Treatment [id number]:54:00.000Z 5320-18-26N75:48:12.000Z BP Sitting (Pre-Dialysis) 156/97 mmHg BP Sitting (Post-Dialysis) 115/49 mmHg Concurrent Access: falseAV Fistula Upper Arm (Left) Arterial Sitting Heart Rate Pre-Dialysis 69 BPM BP Standing (Post-Dialysis) 126/75 mmHg Temperature Pre-Dialysis 98.1 degF Sitting Heart Ra te Post-Dialysis 68 BPM Standing Heart Rate Post-Yasmeen lysis 73 BPM Temperature Post-Dialysis 98 .1 degF May 19, 2024 In-Center Hemodialysis Treatment 7266-02-23C00:44:00.000Z 5312-39-34C78:47:10.000Z BP Sitting (Pre-Dialysis) 167/107 mmHg BP Sitting (Post-Dialysis) 118/77 mmHg Concurrent Access: falseAV Fistula Upper Arm (Left) Arterial BP Standing (Pre-Dialysis) 174/107 mmHg BP Standing (P ost-Dialysis) 139/70 mmHg Sitting Heart Rate Pre-Dialysis 66 BPM Sitting Heart Rate Post-Dialysis 73 BPM Standing Heart Rate Pre-Dialysis 68 BPM Standing Heart Rate Post-Dialysis 64 BPM Temperature Pre-Dialysis 96.8 degF Temperature Post -Dialysis 96.6 degF May 17, 2024 In-Center Hemodialysis Treatment 9600-45-40A31:54:00.000Z 2424-35-09J75:00:04.000Z BP Sitting (Pre-Dialysis) 165/95 mmHg BP Sitting (Post-Dialysis) 136/95 mmHg Concurrent Access: falseAV Fistula Upper Arm (Left) Arterial BP Standing (Pre-Dialysis) 159/90 mmHg BP Standing (P ost-Dialysis) 136/71 mmHg Sitting Heart Rate Pre-Dialysis 66 BPM Sitting Heart Rate Post-Dialysis 75 BPM Standing Heart Rate Pre-Dialysis 67 BPM Standing Heart Rate Post-Dialysis 75 BPM Temperature Pre-Dialysis 95.8 degF Temperature Post -Dialysis 98.7 degF May 14, 2024 In-Center Hemodialysis Treatment 9923-80-81T00:02:00.000Z 1590-79-43R27:06:15.000Z BP Sitting (Pre-Dialysis) 170/99 mmHg BP Sitting (Post-Dialysis) 139/65 mmHg Concurrent Access: falseAV Fistula Upper Arm (Left) Arterial BP Standing (Pre-Dialysis) 183/96 mmHg BP Standing (P ost-Dialysis) 143/74 mmHg Sitting Heart Rate Pre-Dialysis 70 BPM Sitting Heart Rate Post-Dialysis 62 BPM Standing Heart Rate Pre-Dialysis 69 BPM Standing Heart Rate Post-Dialysis 69 BPM Temperature Pre-Dialysis 98.3 degF Temperature Post -Dialysis 98.3 degF May 12, 2024 In-Center Hemodialysis Treatment 7699-45-38T52:08:24.000Z 2476-12-25P28:11:44.000Z BP Sitting (Pre-Dialysis) 182/101 mmHg BP Sitting (Post-Dialysis) 120/58 mmHg Concurrent Access: falseAV Fistula Upper Arm (Left) Arterial BP Standing (Pre-Dialysis) 166/103 mmHg BP Standing (P ost-Dialysis) 121/66 mmHg Sitting Heart Rate Pre-Dialysis 66 BPM Sitting Heart Rate Post-Dialysis 71 BPM Standing Heart Rate Pre-Dialysis 71 BPM Standing Heart Rate Post-Dialysis 70 BPM Temperature Pre-Dialysis 98.6 degF Temperature Post -Dialysis 98 degF May 10, 2024 In-Center Hemodialysis Treatment 2013-11-50I11:06:00.000Z 4453-83-45C16:09:56.000Z BP Sitting (Pre-Dialysis) 181/99 mmHg BP Sitting (Post-Dialysis) 134/63 mmHg Concurrent Access: falseAV Fistula Upper Arm (Left) Arterial BP Standing (Pre-Dialysis) 159/100 mmHg BP Standing (P ost-Dialysis) 130/65 mmHg Sitting Heart Rate Pre-Dialysis 65 BPM Sitting Heart Rate Post-Dialysis 72 BPM Standing Heart Rate Pre-Dialysis 64 BPM Standing Heart Rate Post-Dialysis 71 BPM Temperature Pre-Dialysis 98.3 degF Temperature Post -Dialysis 99.2 degF 2024 In-Center Hemodialysis Treatment 7181-91-05S67:05:00.000Z 5456-18-32N13:06:59.000Z BP Sitting (Pre-Dialysis) 175/102 mmHg BP Sitting (Post-Dialysis) 111/70 mmHg Concurrent Access: falseAV Fistula Upper Arm (Left) Arterial BP Standing (Pre-Dialysis) 178/104 mmHg BP Standing (P ost-Dialysis) 122/75 mmHg Sitting Heart Rate Pre-Dialysis 72 BPM Sitting Heart Rate Post-Dialysis 71 BPM Standing Heart Rate Pre-Dialysis 70 BPM Standing Heart Rate Post-Dialysis 72 BPM Temperature Pre-Dialysis 98.2 degF Temperature Post -Dialysis 98.1 degF May 05, 2024 In-Center Hemodialysis Treatment [id number]:59:00.000Z 4150-57-57A21:04:40.000Z BP Sitting (Pre-Dialysis) 170/99 mmHg BP Sitting (Post-Dialysis) 132/70 mmHg Concurrent Access: falseAV Fistula Upper Arm (Left) Arterial BP Standing (Pre-Dialysis) 176/96 mmHg BP Standing (P ost-Dialysis) 139/76 mmHg Sitting Heart Rate Pre-Dialysis 65 BPM Sitting Heart Rate Post-Dialysis 73 BPM Standing Heart Rate Pre-Dialysis 68 BPM Standing Heart Rate Post-Dialysis 75 BPM Temperature Pre-Dialysis 98.8 degF Temperature Post -Dialysis 98.3 degF May 03, 2024 In-Center Hemodialysis Treatment 9983-54-66D93:05:00.000Z 5407-34-61P82:03:33.000Z BP Sitting (Pre-Dialysis) 153/101 mmHg BP Sitting (Post-Dialysis) 133/69 mmHg Concurrent Access: falseAV Fistula Upper Arm (Left) Arterial BP Standing (Pre-Dialysis) 161/96 mmHg BP Standing (P ost-Dialysis) 121/76 mmHg Sitting Heart Rate Pre-Dialysis 70 BPM Sitting Heart Rate Post-Dialysis 73 BPM Standing Heart Rate Pre-Dialysis 70 BPM Standing Heart Rate Post-Dialysis 77 BPM Temperature Pre-Dialysis 98.4 degF Temperature Post -Dialysis 98.8 degF April 30, 2024 In-Center Hemodialysis Treatment 6947-56-05D26:05:25.000Z 4165-84-07K68:10:25.000Z BP Sitting (Pre-Dialysis) 144/89 mmHg BP Sitting (Post-Dialysis) 114/66 mmHg Concurrent Access: falseAV Fistula Upper Arm (Left) Arterial BP Standing (Pre-Dialysis) 157/96 mmHg Sitti ng Heart Rate Post-Dialysis 64 BPM Sitting Heart Rate Pre-Dialysis 65 BPM Temperatu re Post-Dialysis 97.2 degF Standing Heart Rate Pre-Dialysis 69 BPM Temperature Pre-Dialysis 98.2 degF April 28, 2024 In-Center Hemodialysis Treatment 9101-75-88S32:06:14.000Z 3441-03-23I38:11:39.000Z BP Sitting (Pre-Dialysis) 159/107 mmHg BP Sitting (Post-Dialysis) 126/61 mmHg Concurrent Access: falseAV Fistula Upper Arm (Left) Arterial BP Standing (Pre-Dialysis) 170/101 mmHg BP Standing (P ost-Dialysis) 123/69 mmHg Sitting Heart Rate Pre-Dialysis 70 BPM Sitting Heart Rate Post-Dialysis 65 BPM Standing Heart Rate Pre-Dialysis 71 BPM Standing Heart Rate Post-Dialysis 70 BPM Temperature Pre-Dialysis 97.6 degF Temperature Post -Dialysis 98.4 degF April 26, 2024 In-Center Hemodialysis Treatment 0335-37-96Y24:08:00.000Z 0218-26-58P71:13:34.000Z BP Sitting (Pre-Dialysis) 169/111 mmHg BP Sitting (Post-Dialysis) 132/74 mmHg Concurrent Access: falseAV Fistula Upper Arm (Left) Arterial BP Standing (Pre-Dialysis) 178/103 mmHg BP Standing (P ost-Dialysis) 135/73 mmHg Sitting Heart Rate Pre-Dialysis 68 BPM Sitting Heart Rate Post-Dialysis 68 BPM Standing Heart Rate Pre-Dialysis 68 BPM Standing Heart Rate Post-Dialysis 68 BPM Temperature Pre-Dialysis 98.2 degF Temperature Post -Dialysis 97.8 degF April 23, 2024 In-Center Hemodialysis Treatment 8983-85-51D59:12:32.000Z 5619-54-29R12:01:42.000Z BP Sitting (Pre-Dialysis) 181/100 mmHg BP Sitting (Post-Dialysis) 124/55 mmHg Concurrent Access: falseAV Fistula Upper Arm (Left) Arterial BP Standing (Pre-Dialysis) 188/97 mmHg BP Standing (P ost-Dialysis) 123/58 mmHg Sitting Heart Rate Pre-Dialysis 69 BPM Sitting Heart Rate Post-Dialysis 76 BPM Standing Heart Rate Pre-Dialysis 68 BPM Standing Heart Rate Post-Dialysis 68 BPM Temperature Pre-Dialysis 98.2 degF Temperature Post -Dialysis 98 degF April 21, 2024 In-Center Hemodialysis Treatment 5130-31-00P55:12:20.000Z 8550-54-37J36:12:20.000Z BP Sitting (Pre-Dialysis) 161/97 mmHg BP Sitting (Post-Dialysis) 118/61 mmHg Concurrent Access: falseAV Fistula Upper Arm (Left) Arterial BP Standing (Pre-Dialysis) 145/95 mmHg BP Standing (P ost-Dialysis) 122/58 mmHg Sitting Heart Rate Pre-Dialysis 65 BPM Sitting Heart Rate Post-Dialysis 67 BPM Standing Heart Rate Pre-Dialysis 65 BPM Standing Heart Rate Post-Dialysis 68 BPM Temperature Pre-Dialysis 98 degF Temperature Post -Dialysis 98.7 degF April 18, 2024 In-Center Hemodialysis Treatment 4006-96-79E98:05:52.000Z 3809-25-06W89:15:52.000Z BP Sitting (Pre-Dialysis) 173/107 mmHg BP Sitting (Post-Dialysis) 137/71 mmHg Concurrent Access: falseAV Fistula Upper Arm (Left) Arterial BP Standing (Pre-Dialysis) 166/102 mmHg BP Standing (P ost-Dialysis) 136/71 mmHg Sitting Heart Rate Pre-Dialysis 68 BPM Sitting Heart Rate Post-Dialysis 67 BPM Standing Heart Rate Pre-Dialysis 68 BPM Standing Heart Rate Post-Dialysis 67 BPM Temperature Pre-Dialysis 98 degF Temperature Post -Dialysis 98.2 degF April 16, 2024 In-Center Hemodialysis Treatment 6159-82-83P07:04:05.000Z 8917-66-51I96:06:29.000Z BP Sitting (Pre-Dialysis) 169/102 mmHg BP Sitting (Post-Dialysis) 123/59 mmHg Concurrent Access: falseAV Fistula Upper Arm (Left) Arterial BP Standing (Pre-Dialysis) 168/97 mmHg BP Standing (P ost-Dialysis) 129/68 mmHg Sitting Heart Rate Pre-Dialysis 66 BPM Sitting Heart Rate Post-Dialysis 64 BPM Standing Heart Rate Pre-Dialysis 66 BPM Standing Heart Rate Post-Dialysis 66 BPM Temperature Pre-Dialysis 98.2 degF Temperature Post -Dialysis 98.3 degF April 14, 2024 In-Center Hemodialysis Treatment 5756-30-71C29:08:30.000Z 8479-69-62M56:11:50.000Z BP Sitting (Pre-Dialysis) 166/88 mmHg BP Sitting (Post-Dialysis) 131/66 mmHg Concurrent Access: falseAV Fistula Upper Arm (Left) Arterial BP Standing (Pre-Dialysis) 177/99 mmHg BP Standing (P ost-Dialysis) 124/55 mmHg Sitting Heart Rate Pre-Dialysis 67 BPM Sitting Heart Rate Post-Dialysis 66 BPM Standing Heart Rate Pre-Dialysis 68 BPM Standing Heart Rate Post-Dialysis 68 BPM Temperature Pre-Dialysis 98.3 degF Temperature Post -Dialysis 98.6 degF April 11, 2024 In-Center Hemodialysis Treatment 1456-02-99P37:58:00.000Z 7027-71-75H38:59:47.000Z BP Sitting (Pre-Dialysis) 189/103 mmHg BP Sitting (Post-Dialysis) 129/58 mmHg Concurrent Access: falseAV Fistula Upper Arm (Left) Arterial BP Standing (Pre-Dialysis) 179/111 mmHg BP Standing (P ost-Dialysis) 118/70 mmHg Sitting Heart Rate Pre-Dialysis 70 BPM Sitting Heart Rate Post-Dialysis 66 BPM Standing Heart Rate Pre-Dialysis 72 BPM Standing Heart Rate Post-Dialysis 68 BPM Temperature Pre-Dialysis 98.6 degF Temperature Post -Dialysis 98.6 degF April 09, 2024 In-Center Hemodialysis Treatment 9719-21-00G54:17:26.000Z 8077-09-73Z25:17:26.000Z BP Sitting (Pre-Dialysis) 171/108 mmHg BP Sitting (Post-Dialysis) 118/61 mmHg Concurrent Access: falseAV Fistula Upper Arm (Left) Arterial BP Standing (Pre-Dialysis) 166/97 mmHg BP Standing (P ost-Dialysis) 143/71 mmHg Sitting Heart Rate Pre-Dialysis 64 BPM Sitting Heart Rate Post-Dialysis 65 BPM Standing Heart Rate Pre-Dialysis 68 BPM Standing Heart Rate Post-Dialysis 67 BPM Temperature Pre-Dialysis 97.6 degF Temperature Post -Dialysis 98.4 degF April 07, 2024 In-Center Hemodialysis Treatment 7300-62-68K95:03:57.000Z 5202-45-85V53:06:52.000Z BP Sitting (Pre-Dialysis) 177/95 mmHg BP Sitting (Post-Dialysis) 103/69 mmHg Concurrent Access: falseAV Fistula Upper Arm (Left) Arterial BP Standing (Pre-Dialysis) 158/95 mmHg Sitting Heart Rate Post-Dialysis 75 BPM Sitting Heart Rate Pre-Dialysis 62 BPM Standing Heart Rate Pre-Dialysis 66 BPM Temperature Pre-Dialysis 97.3 degF April 05, 2024 In-Center Hemodialysis Treatment 0842-98-15R25:09:10.000Z 6238-27-03W62:09:10.000Z BP Sitting (Pre-Dialysis) 196/109 mmHg BP Sitting (Post-Dialysis) 114/53 mmHg Concurrent Access: falseAV Fistula Upper Arm (Left) Arterial BP Standing (Pre-Dialysis) 177/107 mmHg Sitti ng Heart Rate Post-Dialysis 70 BPM Sitting Heart Rate Pre-Dialysis 69 BPM Temperatu re Post-Dialysis 98.3 degF Standing Heart Rate Pre-Dialysis 67 BPM Temperature Pre-Dialysis 98.3 degF April 02, 2024 In-Center Hemodialysis Treatment 7811-47-87H97:04:00.000Z 7687-32-88S39:04:50.000Z BP Sitting (Pre-Dialysis) 170/106 mmHg BP Sitting (Post-Dialysis) 133/69 mmHg Concurrent Access: falseAV Fistula Upper Arm (Left) Arterial BP Standing (Pre-Dialysis) 160/98 mmHg BP Standing (P ost-Dialysis) 126/68 mmHg Sitting Heart Rate Pre-Dialysis 69 BPM Sitting Heart Rate Post-Dialysis 72 BPM Standing Heart Rate Pre-Dialysis 67 BPM Standing Heart Rate Post-Dialysis 72 BPM Temperature Pre-Dialysis 98.1 degF Temperature Post -Dialysis 98.4 degF March 31, 2024 In-Center Hemodialysis Treatment 6388-20-95Y22:07:57.000Z 2845-46-27H52:07:57.000Z BP Sitting (Pre-Dialysis) 150/85 mmHg BP Sitting (Post-Dialysis) 129/66 mmHg Concurrent Access: falseAV Fistula Upper Arm (Left) Arterial BP Standing (Pre-Dialysis) 143/78 mmHg BP Standing (P ost-Dialysis) 121/63 mmHg Sitting Heart Rate Pre-Dialysis 60 BPM Sitting Heart Rate Post-Dialysis 65 BPM Standing Heart Rate Pre-Dialysis 62 BPM Standing Heart Rate Post-Dialysis 68 BPM Temperature Pre-Dialysis 97.9 degF Temperature Post -Dialysis 99.6 degF March 29, 2024 In-Center Hemodialysis Treatment [id number]:05:00.000Z [id number]:14:47.000Z BP Sitting (Pre-Dialysis) 176/87 mmHg BP Sitting (Post-Dialysis) 144/72 mmHg Concurrent Access: falseAV Fistula Upper Arm (Left) Arterial BP Standing (Pre-Dialysis) 159/92 mmHg Sitti ng Heart Rate Post-Dialysis 70 BPM Sitting Heart Rate Pre-Dialysis 66 BPM Temperatu re Post-Dialysis 98.6 degF Standing Heart Rate Pre-Dialysis 68 BPM Temperature Pre-Dialysis 98.6 degF March 26, 2024 In-Center Hemodialysis Treatment [id number]:03:00.000Z [id number]:05:31.000Z BP Sitting (Pre-Dialysis) 148/88 mmHg BP Sitting (Post-Dialysis) 122/62 mmHg Concurrent Access: falseAV Fistula Upper Arm (Left) Arterial BP Standing (Pre-Dialysis) 132/74 mmHg BP Standing (P ost-Dialysis) 121/55 mmHg Sitting Heart Rate Pre-Dialysis 64 BPM Sitting Heart Rate Post-Dialysis 68 BPM Standing Heart Rate Pre-Dialysis 66 BPM Standing Heart Rate Post-Dialysis 67 BPM Temperature Pre-Dialysis 98.3 degF Temperature Post -Dialysis 98 degF March 24, 2024 In-Center Hemodialysis Treatment [id number]:16:00.000Z [id number]:17:08.000Z BP Sitting (Pre-Dialysis) 175/88 mmHg BP Sitting (Post-Dialysis) 149/67 mmHg Concurrent Access: falseAV Fistula Upper Arm (Left) Arterial BP Standing (Pre-Dialysis) 145/94 mmHg BP Standing (P ost-Dialysis) 148/67 mmHg Sitting Heart Rate Pre-Dialysis 59 BPM Sitting Heart Rate Post-Dialysis 66 BPM Standing Heart Rate Pre-Dialysis 64 BPM Standing Heart Rate Post-Dialysis 68 BPM Temperature Pre-Dialysis 98.1 degF Temperature Post -Dialysis 98.2 degF March 22, 2024 In-Center Hemodialysis Treatment [id number]:18:00.000Z [id number]:20:07.000Z BP Sitting (Pre-Dialysis) 142/82 mmHg BP Sitting (Post-Dialysis) 134/64 mmHg Concurrent Access: falseAV Fistula Upper Arm (Left) Arterial BP Standing (Pre-Dialysis) 146/85 mmHg BP Standing (P ost-Dialysis) 146/79 mmHg Sitting Heart Rate Pre-Dialysis 64 BPM Sitting Heart Rate Post-Dialysis 68 BPM Standing Heart Rate Pre-Dialysis 63 BPM Standing Heart Rate Post-Dialysis 70 BPM Temperature Pre-Dialysis 97.9 degF Temperature Post -Dialysis 97.8 degF March 19, 2024 In-Center Hemodialysis Treatment [id number]:05:00.000Z [id number]:08:23.000Z BP Sitting (Pre-Dialysis) 186/96 mmHg BP Sitting (Post-Dialysis) 128/70 mmHg Concurrent Access: falseAV Fistula Upper Arm (Left) Arterial BP Standing (Pre-Dialysis) 168/97 mmHg BP Standing (P ost-Dialysis) 139/81 mmHg Sitting Heart Rate Pre-Dialysis 68 BPM Sitting Heart Rate Post-Dialysis 73 BPM Standing Heart Rate Pre-Dialysis 68 BPM Standing Heart Rate Post-Dialysis 72 BPM Temperature Pre-Dialysis 97.6 degF Temperature Post -Dialysis 97.8 degF March 16, 2024 In-Center Hemodialysis Treatment [id number]:06:05.000Z [id number]:06:30.000Z BP Sitting (Pre-Dialysis) 171/99 mmHg BP Sitting (Post-Dialysis) 128/67 mmHg Concurrent Access: falseAV Fistula Upper Arm (Left) Arterial BP Standing (Pre-Dialysis) 164/100 mmHg BP Standing (P ost-Dialysis) 133/74 mmHg Sitting Heart Rate Pre-Dialysis 69 BPM Sitting Heart Rate Post-Dialysis 67 BPM Standing Heart Rate Pre-Dialysis 71 BPM Standing Heart Rate Post-Dialysis 72 BPM Temperature Pre-Dialysis 98.3 degF Temperature Post -Dialysis 98 degF March 14, 2024 In-Center Hemodialysis Treatment [id number]:58:00.000Z [id number]:04:45.000Z BP Sitting (Pre-Dialysis) 173/96 mmHg BP Sitting (Post-Dialysis) 159/77 mmHg Concurrent Access: falseAV Fistula Upper Arm (Left) Arterial BP Standing (Pre-Dialysis) 169/101 mmHg BP Standing (P ost-Dialysis) 169/86 mmHg Sitting Heart Rate Pre-Dialysis 68 BPM Sitting Heart Rate Post-Dialysis 71 BPM Standing Heart Rate Pre-Dialysis 68 BPM Standing Heart Rate Post-Dialysis 72 BPM Temperature Pre-Dialysis 99 degF Temperature Post -Dialysis 98.2 degF March 12, 2024 In-Center Hemodialysis Treatment [id number]:01:00.000Z [id number]:13:22.000Z BP Sitting (Pre-Dialysis) 178/16 mmHg BP Sitting (Post-Dialysis) 150/55 mmHg Concurrent Access: falseAV Fistula Upper Arm (Left) Arterial BP Standing (Pre-Dialysis) 161/92 mmHg Sitting Heart Rate Post-Dialysis 72 BPM Sitting Heart Rate Pre-Dialysis 68 BPM Temperatu re Post-Dialysis 98 degF Standing Heart Rate Pre-Dialysis 70 BPM Temperature Pre-Dialysis 98.1 degF March 10, 2024 In-Center Hemodialysis Treatment [id number]:07:00.000Z 5095-96-30K97:08:10.000Z BP Sitting (Pre-Dialysis) 167/97 mmHg BP Sitting (Post-Dialysis) 130/71 mmHg Concurrent Access: falseAV Fistula Upper Arm (Left) Arterial BP Standing (Pre-Dialysis) 154/96 mmHg Sitti ng Heart Rate Post-Dialysis 68 BPM Sitting Heart Rate Pre-Dialysis 64 BPM Temperatu re Post-Dialysis 97.9 degF Standing Heart Rate Pre-Dialysis 67 BPM Temperature Pre-Dialysis 98.3 degF March 08, 2024 In-Center Hemodialysis Treatment [id number]:04:55.000Z [id number]:04:55.000Z BP Sitting (Pre-Dialysis) 170/98 mmHg BP Sitting (Post-Dialysis) 128/59 mmHg Concurrent Access: falseAV Fistula Upper Arm (Left) Arterial BP Standing (Pre-Dialysis) 152/91 mmHg BP Standing (P ost-Dialysis) 120/72 mmHg Sitting Heart Rate Pre-Dialysis 64 BPM Sitting Heart Rate Post-Dialysis 66 BPM Standing Heart Rate Pre-Dialysis 65 BPM Standing Heart Rate Post-Dialysis 74 BPM Temperature Pre-Dialysis 98.3 degF Temperature Post -Dialysis 99.2 degF March 05, 2024 In-Center Hemodialysis Treatment [id number]:59:00.000Z 9260-04-45A31:01:38.000Z BP Sitting (Pre-Dialysis) 174/104 mmHg BP Sitting (Post-Dialysis) 125/62 mmHg Concurrent Access: falseAV Fistula Upper Arm (Left) Arterial BP Standing (Pre-Dialysis) 163/93 mmHg Sitti ng Heart Rate Post-Dialysis 76 BPM Sitting Heart Rate Pre-Dialysis 66 BPM Temperatu re Post-Dialysis 97.2 degF Standing Heart Rate Pre-Dialysis 69 BPM Temperature Pre-Dialysis 99.6 degF March 03, 2024 In-Center Hemodialysis Treatment [id number]:14:00.000Z [id number]:16:56.000Z BP Sitting (Pre-Dialysis) 179/100 mmHg BP Sitting (Post-Dialysis) 146/66 mmHg Concurrent Access: falseAV Fistula Upper Arm (Left) Arterial BP Standing (Pre-Dialysis) 159/91 mmHg BP Standing (P ost-Dialysis) 148/72 mmHg Sitting Heart Rate Pre-Dialysis 66 BPM Sitting Heart Rate Post-Dialysis 73 BPM Standing Heart Rate Pre-Dialysis 67 BPM Standing Heart Rate Post-Dialysis 72 BPM Temperature Pre-Dialysis 97.9 degF Temperature Post -Dialysis 99 degF March 01, 2024 In-Center Hemodialysis Treatment [id number]:12:00.000Z [id number]:16:01.000Z BP Sitting (Pre-Dialysis) 166/60 mmHg BP Sitting (Post-Dialysis) 131/61 mmHg Concurrent Access: falseAV Fistula Upper Arm (Left) Arterial BP Standing (Pre-Dialysis) 172/97 mmHg BP Standing (P ost-Dialysis) 123/74 mmHg Sitting Heart Rate Pre-Dialysis 56 BPM Sitting Heart Rate Post-Dialysis 67 BPM Standing Heart Rate Pre-Dialysis 60 BPM Standing Heart Rate Post-Dialysis 67 BPM Temperature Pre-Dialysis 98.4 degF Temperature Post -Dialysis 98.7 degF February 27, 2024 In-Center Hemodialysis Treatment [id number]:01:52.000Z [id number]:02:17.000Z BP Sitting (Pre-Dialysis) 164/99 mmHg BP Sitting (Post-Dialysis) 116/56 mmHg Concurrent Access: falseAV Fistula Upper Arm (Left) Arterial BP Standing (Pre-Dialysis) 168/101 mmHg BP Standing (P ost-Dialysis) 136/58 mmHg Sitting Heart Rate Pre-Dialysis 67 BPM Sitting Heart Rate Post-Dialysis 69 BPM Standing Heart Rate Pre-Dialysis 70 BPM Standing Heart Rate Post-Dialysis 77 BPM Temperature Pre-Dialysis 98.1 degF Temperature Post -Dialysis 98.3 degF February 25, 2024 In-Center Hemodialysis Treatment [id number]:17:00.000Z [id number]:27:09.000Z BP Sitting (Pre-Dialysis) 149/84 mmHg BP Sitting (Post-Dialysis) 133/63 mmHg Concurrent Access: falseAV Fistula Upper Arm (Left) Arterial BP Standing (Pre-Dialysis) 161/94 mmHg BP Standing (P ost-Dialysis) 130/63 mmHg Sitting Heart Rate Pre-Dialysis 64 BPM Sitting Heart Rate Post-Dialysis 71 BPM Standing Heart Rate Pre-Dialysis 65 BPM Standing Heart Rate Post-Dialysis 70 BPM Temperature Pre-Dialysis 98.6 degF Temperature Post -Dialysis 98.6 degF February 23, 2024 In-Center Hemodialysis Treatment [id number]:14:39.000Z [id number]:15:04.000Z BP Sitting (Pre-Dialysis) 160/78 mmHg BP Sitting (Post-Dialysis) 131/56 mmHg Concurrent Access: falseAV Fistula Upper Arm (Left) Arterial BP Standing (Pre-Dialysis) 150/88 mmHg BP Standing (P ost-Dialysis) 155/74 mmHg Sitting Heart Rate Pre-Dialysis 62 BPM Sitting Heart Rate Post-Dialysis 73 BPM Standing Heart Rate Pre-Dialysis 64 BPM Standing Heart Rate Post-Dialysis 74 BPM Temperature Pre-Dialysis 98.3 degF Temperature Post -Dialysis 98.4 degF February 20, 2024 In-Center Hemodialysis Treatment [id number]:59:31.000Z [id number]:02:51.000Z BP Sitting (Pre-Dialysis) 157/96 mmHg BP Sitting (Post-Dialysis) 111/54 mmHg Concurrent Access: falseAV Fistula Upper Arm (Left) Arterial BP Standing (Pre-Dialysis) 148/91 mmHg BP Standing (P ost-Dialysis) 126/78 mmHg Sitting Heart Rate Pre-Dialysis 66 BPM Sitting Heart Rate Post-Dialysis 67 BPM Standing Heart Rate Pre-Dialysis 66 BPM Standing Heart Rate Post-Dialysis 74 BPM Temperature Pre-Dialysis 98.4 degF Temperature Post -Dialysis 98.2 degF February 18, 2024 In-Center Hemodialysis Treatment [id number]:09:50.000Z 7961-66-30I94:08:10.000Z BP Sitting (Pre-Dialysis) 154/90 mmHg BP Sitting (Post-Dialysis) 104/56 mmHg Concurrent Access: falseAV Fistula Upper Arm (Left) Arterial BP Standing (Pre-Dialysis) 154/97 mmHg BP Standing (P ost-Dialysis) 130/63 mmHg Sitting Heart Rate Pre-Dialysis 63 BPM Sitting Heart Rate Post-Dialysis 73 BPM Standing Heart Rate Pre-Dialysis 61 BPM Standing Heart Rate Post-Dialysis 72 BPM Temperature Pre-Dialysis 98.3 degF Temperature Post -Dialysis 98 degF February 16, 2024 In-Center Hemodialysis Treatment 6020-15-51V75:07:00.000Z 1366-34-98R50:10:16.000Z BP Sitting (Pre-Dialysis) 173/105 mmHg BP Sitting (Post-Dialysis) 130/59 mmHg Concurrent Access: falseAV Fistula Upper Arm (Left) Arterial BP Standing (Pre-Dialysis) 171/106 mmHg Sitti ng Heart Rate Post-Dialysis 62 BPM Sitting Heart Rate Pre-Dialysis 73 BPM Temperatu re Post-Dialysis 98.5 degF Standing Heart Rate Pre-Dialysis 74 BPM Temperature Pre-Dialysis 98.2 degF February 13, 2024 In-Center Hemodialysis Treatment [id number]:14:00.000Z [id number]:18:57.000Z BP Sitting (Pre-Dialysis) 183/106 mmHg BP Sitting (Post-Dialysis) 128/59 mmHg Concurrent Access: falseAV Fistula Upper Arm (Left) Arterial BP Standing (Pre-Dialysis) 182/101 mmHg BP Standing (P ost-Dialysis) 136/59 mmHg Sitting Heart Rate Pre-Dialysis 68 BPM Sitting Heart Rate Post-Dialysis 67 BPM Standing Heart Rate Pre-Dialysis 70 BPM Standing Heart Rate Post-Dialysis 72 BPM Temperature Pre-Dialysis 98.4 degF Temperature Post -Dialysis 98 degF February 11, 2024 In-Center Hemodialysis Treatment [id number]:12:41.000Z [id number]:14:21.000Z BP Sitting (Pre-Dialysis) 165/99 mmHg BP Sitting (Post-Dialysis) 121/58 mmHg Concurrent Access: falseAV Fistula Upper Arm (Left) Arterial BP Standing (Pre-Dialysis) 154/95 mmHg BP Standing (P ost-Dialysis) 141/70 mmHg Sitting Heart Rate Pre-Dialysis 70 BPM Sitting Heart Rate Post-Dialysis 70 BPM Standing Heart Rate Pre-Dialysis 71 BPM Standing Heart Rate Post-Dialysis 72 BPM Temperature Pre-Dialysis 98.7 degF Temperature Post -Dialysis 97.8 degF February 09, 2024 In-Center Hemodialysis Treatment [id number]:03:00.000Z [id number]:08:24.000Z BP Sitting (Pre-Dialysis) 176/104 mmHg BP Sitting (Post-Dialysis) 141/60 mmHg Concurrent Access: falseAV Fistula Upper Arm (Left) Arterial BP Standing (Pre-Dialysis) 149/92 mmHg BP Standing (P ost-Dialysis) 150/69 mmHg Sitting Heart Rate Pre-Dialysis 67 BPM Sitting Heart Rate Post-Dialysis 71 BPM Standing Heart Rate Pre-Dialysis 69 BPM Standing Heart Rate Post-Dialysis 71 BPM Temperature Pre-Dialysis 98.1 degF Temperature Post -Dialysis 98.4 degF February 06, 2024 In-Center Hemodialysis Treatment [id number]:11:30.000Z [id number]:11:55.000Z BP Sitting (Pre-Dialysis) 189/111 mmHg BP Sitting (Post-Dialysis) 151/73 mmHg Concurrent Access: falseAV Fistula Upper Arm (Left) Arterial BP Standing (Pre-Dialysis) 183/109 mmHg BP Standing (P ost-Dialysis) 146/71 mmHg Sitting Heart Rate Pre-Dialysis 66 BPM Sitting Heart Rate Post-Dialysis 63 BPM Standing Heart Rate Pre-Dialysis 67 BPM Standing Heart Rate Post-Dialysis 68 BPM Temperature Pre-Dialysis 98.4 degF Temperature Post -Dialysis 98.1 degF February 04, 2024 In-Center Hemodialysis Treatment [id number]:20:28.000Z [id number]:20:28.000Z BP Sitting (Pre-Dialysis) 198/120 mmHg BP Sitting (Post-Dialysis) 189/98 mmHg Concurrent Access: falseAV Fistula Upper Arm (Left) Arterial BP Standing (Pre-Dialysis) 186/115 mmHg BP Standing (P ost-Dialysis) 171/98 mmHg Sitting Heart Rate Pre-Dialysis 58 BPM Sitting Heart Rate Post-Dialysis 62 BPM Standing Heart Rate Pre-Dialysis 61 BPM Standing Heart Rate Post-Dialysis 67 BPM Temperature Pre-Dialysis 98.1 degF Temperature Post -Dialysis 98.5 degF February 02, 2024 In-Center Hemodialysis Treatment [id number]:10:05.000Z 9425-97-94L17:10:30.000Z BP Sitting (Pre-Dialysis) 191/109 mmHg BP Sitting (Post-Dialysis) 152/82 mmHg Concurrent Access: falseAV Fistula Upper Arm (Left) Arterial BP Standing (Pre-Dialysis) 198/102 mmHg BP Standing (P ost-Dialysis) 163/83 mmHg Sitting Heart Rate Pre-Dialysis 62 BPM Sitting Heart Rate Post-Dialysis 64 BPM Standing Heart Rate Pre-Dialysis 66 BPM Standing Heart Rate Post-Dialysis 68 BPM Temperature Pre-Dialysis 98.5 degF Temperature Post -Dialysis 97.3 degF January 30, 2024 In-Center Hemodialysis Treatment [id number]:14:00.000Z [id number]:02:09.000Z BP Sitting (Pre-Dialysis) 185/113 mmHg BP Sitting (Post-Dialysis) 127/66 mmHg Concurrent Access: falseAV Fistula Upper Arm (Left) Arterial BP Standing (Pre-Dialysis) 158/99 mmHg BP Standing (P ost-Dialysis) 132/71 mmHg Sitting Heart Rate Pre-Dialysis 67 BPM Sitting Heart Rate Post-Dialysis 67 BPM Standing Heart Rate Pre-Dialysis 68 BPM Standing Heart Rate Post-Dialysis 68 BPM Temperature Pre-Dialysis 98 degF Temperature Post -Dialysis 98 degF January 28, 2024 In-Center Hemodialysis Treatment [id number]:11:05.000Z [id number]:19:50.000Z BP Sitting (Pre-Dialysis) 170/100 mmHg BP Sitting (Post-Dialysis) 121/63 mmHg Concurrent Access: falseAV Fistula Upper Arm (Left) Arterial BP Standing (Pre-Dialysis) 154/103 mmHg BP Standing (P ost-Dialysis) 123/62 mmHg Sitting Heart Rate Pre-Dialysis 64 BPM Sitting Heart Rate Post-Dialysis 67 BPM Standing Heart Rate Pre-Dialysis 67 BPM Standing Heart Rate Post-Dialysis 66 BPM Temperature Pre-Dialysis 98.3 degF Temperature Post -Dialysis 99.2 degF January 26, 2024 In-Center Hemodialysis Treatment [id number]:05:00.000Z [id number]:21:20.000Z BP Sitting (Pre-Dialysis) 173/98 mmHg BP Sitting (Post-Dialysis) 149/67 mmHg Concurrent Access: falseAV Fistula Upper Arm (Left) Arterial BP Standing (Pre-Dialysis) 154/116 mmHg BP Standing (P ost-Dialysis) 157/70 mmHg Sitting Heart Rate Pre-Dialysis 64 BPM Sitting Heart Rate Post-Dialysis 70 BPM Standing Heart Rate Pre-Dialysis 67 BPM Standing Heart Rate Post-Dialysis 70 BPM Temperature Pre-Dialysis 98.8 degF Temperature Post -Dialysis 98.6 degF January 23, 2024 In-Center Hemodialysis Treatment [id number]:13:50.000Z 9465-10-72A95:14:15.000Z BP Sitting (Pre-Dialysis) 162/108 mmHg BP Sitting (Post-Dialysis) 115/61 mmHg Concurrent Access: falseAV Fistula Upper Arm (Left) Arterial BP Standing (Pre-Dialysis) 157/103 mmHg BP Standing (P ost-Dialysis) 136/61 mmHg Sitting Heart Rate Pre-Dialysis 64 BPM Sitting Heart Rate Post-Dialysis 64 BPM Standing Heart Rate Pre-Dialysis 63 BPM Standing Heart Rate Post-Dialysis 66 BPM Temperature Pre-Dialysis 98.3 degF Temperature Post -Dialysis 97.9 degF January 21, 2024 In-Center Hemodialysis Treatment [id number]:09:57.000Z [id number]:25:22.000Z BP Sitting (Pre-Dialysis) 162/91 mmHg BP Sitting (Post-Dialysis) 154/51 mmHg Concurrent Access: falseAV Fistula Upper Arm (Left) Arterial BP Standing (Pre-Dialysis) 184/94 mmHg BP Standing (P ost-Dialysis) 141/94 mmHg Sitting Heart Rate Pre-Dialysis 61 BPM Sitting Heart Rate Post-Dialysis 66 BPM Standing Heart Rate Pre-Dialysis 63 BPM Standing Heart Rate Post-Dialysis 66 BPM Temperature Pre-Dialysis 98 degF Temperature Post -Dialysis 98.2 degF January 19, 2024 In-Center Hemodialysis Treatment 8067-90-81Q92:08:00.000Z [id number]:12:14.000Z BP Sitting (Pre-Dialysis) 178/105 mmHg BP Sitting (Post-Dialysis) 130/61 mmHg Concurrent Access: falseAV Fistula Upper Arm (Left) Arterial BP Standing (Pre-Dialysis) 164/94 mmHg Sitti ng Heart Rate Post-Dialysis 68 BPM Sitting Heart Rate Pre-Dialysis 65 BPM Temperatu re Post-Dialysis 98.6 degF Standing Heart Rate Pre-Dialysis 66 BPM Temperature Pre-Dialysis 98.4 degF January 16, 2024 In-Center Hemodialysis Treatment [id number]:02:00.000Z 6746-94-44P65:13:50.000Z BP Sitting (Pre-Dialysis) 194/118 mmHg BP Sitting (Post-Dialysis) 158/74 mmHg Concurrent Access: falseAV Fistula Upper Arm (Left) Arterial BP Standing (Pre-Dialysis) 184/109 mmHg Sitti ng Heart Rate Post-Dialysis 64 BPM Sitting Heart Rate Pre-Dialysis 64 BPM Temperatu re Post-Dialysis 98.8 degF Standing Heart Rate Pre-Dialysis 63 BPM Temperature Pre-Dialysis 98.2 degF January 14, 2024 In-Center Hemodialysis Treatment [id number]:07:03.000Z 5728-48-65U67:09:08.000Z BP Sitting (Pre-Dialysis) 191/115 mmHg BP Sitting (Post-Dialysis) 139/68 mmHg Concurrent Access: falseAV Fistula Upper Arm (Left) Arterial BP Standing (Pre-Dialysis) 168/111 mmHg BP Standing (P ost-Dialysis) 155/69 mmHg Sitting Heart Rate Pre-Dialysis 70 BPM Sitting Heart Rate Post-Dialysis 66 BPM Standing Heart Rate Pre-Dialysis 68 BPM Standing Heart Rate Post-Dialysis 75 BPM Temperature Pre-Dialysis 98.4 degF Temperature Post -Dialysis 98.3 degF January 12, 2024 In-Center Hemodialysis Treatment [id number]:05:00.000Z 5198-96-55N54:12:00.000Z BP Sitting (Pre-Dialysis) 162/110 mmHg BP Sitting (Post-Dialysis) 128/73 mmHg Concurrent Access: falseAV Fistula Upper Arm (Left) Arterial BP Standing (Pre-Dialysis) 171/101 mmHg Sitti ng Heart Rate Post-Dialysis 65 BPM Sitting Heart Rate Pre-Dialysis 66 BPM Temperatu re Post-Dialysis 98.1 degF Standing Heart Rate Pre-Dialysis 68 BPM Temperature Pre-Dialysis 98.4 degF January 09, 2024 In-Center Hemodialysis Treatment [id number]:57:00.000Z 5763-76-02Z29:04:47.000Z BP Sitting (Pre-Dialysis) 166/103 mmHg BP Sitting (Post-Dialysis) 172/89 mmHg Concurrent Access: falseAV Fistula Upper Arm (Left) Arterial BP Standing (Pre-Dialysis) 170/108 mmHg BP Standing (P ost-Dialysis) 167/87 mmHg Sitting Heart Rate Pre-Dialysis 66 BPM Sitting Heart Rate Post-Dialysis 71 BPM Standing Heart Rate Pre-Dialysis 67 BPM Standing Heart Rate Post-Dialysis 69 BPM Temperature Pre-Dialysis 98.7 degF Temperature Post -Dialysis 98 degF January 07, 2024 In-Center Hemodialysis Treatment [id number]:03:00.000Z 7547-03-45Z97:07:27.000Z BP Sitting (Pre-Dialysis) 172/110 mmHg BP Sitting (Post-Dialysis) 127/74 mmHg Concurrent Access: falseAV Fistula Upper Arm (Left) Arterial BP Standing (Pre-Dialysis) 161/102 mmHg BP Standing (P ost-Dialysis) 152/82 mmHg Sitting Heart Rate Pre-Dialysis 72 BPM Sitting Heart Rate Post-Dialysis 65 BPM Standing Heart Rate Pre-Dialysis 68 BPM Standing Heart Rate Post-Dialysis 66 BPM Temperature Pre-Dialysis 98.5 degF Temperature Post -Dialysis 98 degF January 05, 2024 In-Center Hemodialysis Treatment 7021-72-72L03:15:20.000Z [id number]:19:05.000Z BP Sitting (Pre-Dialysis) 165/100 mmHg BP Sitting (Post-Dialysis) 127/71 mmHg Concurrent Access: falseAV Fistula Upper Arm (Left) Arterial BP Standing (Pre-Dialysis) 149/99 mmHg BP Standing (P ost-Dialysis) 159/79 mmHg Sitting Heart Rate Pre-Dialysis 64 BPM Sitting Heart Rate Post-Dialysis 68 BPM Standing Heart Rate Pre-Dialysis 67 BPM Standing Heart Rate Post-Dialysis 67 BPM Temperature Pre-Dialysis 98.2 degF Temperature Post -Dialysis 97.6 degF January 02, 2024 In-Center Hemodialysis Treatment [id number]:08:56.000Z [id number]:11:51.000Z BP Sitting (Pre-Dialysis) 146/82 mmHg BP Sitting (Post-Dialysis) 134/75 mmHg Concurrent Access: falseAV Fistula Upper Arm (Left) Arterial BP Standing (Pre-Dialysis) 140/90 mmHg BP Standing (P ost-Dialysis) 125/68 mmHg Sitting Heart Rate Pre-Dialysis 67 BPM Sitting Heart Rate Post-Dialysis 67 BPM Standing Heart Rate Pre-Dialysis 68 BPM Standing Heart Rate Post-Dialysis 68 BPM Temperature Pre-Dialysis 98.3 degF Temperature Post -Dialysis 97.8 degF December 31, 2023 In-Center Hemodialysis Treatment [id number]:23:27.000Z [id number]:24:17.000Z BP Sitting (Pre-Dialysis) 148/76 mmHg BP Sitting (Post-Dialysis) 152/73 mmHg Concurrent Access: falseAV Fistula Upper Arm (Left) Arterial BP Standing (Pre-Dialysis) 136/78 mmHg BP Standing (P ost-Dialysis) 154/83 mmHg Sitting Heart Rate Pre-Dialysis 70 BPM Sitting Heart Rate Post-Dialysis 67 BPM Standing Heart Rate Pre-Dialysis 68 BPM Standing Heart Rate Post-Dialysis 70 BPM Temperature Pre-Dialysis 98.4 degF Temperature Post -Dialysis 98.3 degF December 29, 2023 In-Center Hemodialysis Treatment [id number]:12:00.000Z [id number]:04:12.000Z BP Sitting (Pre-Dialysis) 196/113 mmHg BP Sitting (Post-Dialysis) 136/79 mmHg Concurrent Access: falseAV Fistula Upper Arm (Left) Arterial BP Standing (Pre-Dialysis) 174/104 mmHg BP Standing (P ost-Dialysis) 139/73 mmHg Sitting Heart Rate Pre-Dialysis 66 BPM Sitting Heart Rate Post-Dialysis 72 BPM Standing Heart Rate Pre-Dialysis 66 BPM Standing Heart Rate Post-Dialysis 70 BPM Temperature Pre-Dialysis 98.3 degF Temperature Post -Dialysis 98.7 degF December 26, 2023 In-Center Hemodialysis Treatment [id number]:02:00.000Z 2614-08-86I78:05:49.000Z BP Sitting (Pre-Dialysis) 151/97 mmHg BP Sitting (Post-Dialysis) 119/61 mmHg Concurrent Access: falseAV Fistula Upper Arm (Left) Arterial BP Standing (Pre-Dialysis) 151/99 mmHg BP Standing (P ost-Dialysis) 139/72 mmHg Sitting Heart Rate Pre-Dialysis 67 BPM Sitting Heart Rate Post-Dialysis 64 BPM Standing Heart Rate Pre-Dialysis 73 BPM Standing Heart Rate Post-Dialysis 67 BPM Temperature Pre-Dialysis 98.1 degF Temperature Post -Dialysis 98.2 degF December 24, 2023 In-Center Hemodialysis Treatment [id number]:09:00.000Z [id number]:12:02.000Z BP Sitting (Pre-Dialysis) 157/97 mmHg BP Sitting (Post-Dialysis) 117/63 mmHg Concurrent Access: falseAV Fistula Upper Arm (Left) Arterial BP Standing (Pre-Dialysis) 146/89 mmHg BP Standing (P ost-Dialysis) 147/69 mmHg Sitting Heart Rate Pre-Dialysis 66 BPM Sitting Heart Rate Post-Dialysis 63 BPM Standing Heart Rate Pre-Dialysis 68 BPM Standing Heart Rate Post-Dialysis 64 BPM Temperature Pre-Dialysis 98.3 degF Temperature Post -Dialysis 96.1 degF December 22, 2023 In-Center Hemodialysis Treatment [id number]:09:00.000Z 2010-24-95R82:09:09.000Z BP Sitting (Pre-Dialysis) 160/103 mmHg BP Sitting (Post-Dialysis) 127/69 mmHg Concurrent Access: falseAV Fistula Upper Arm (Left) Arterial BP Standing (Pre-Dialysis) 165/110 mmHg BP Standing (P ost-Dialysis) 165/81 mmHg Sitting Heart Rate Pre-Dialysis 69 BPM Sitting Heart Rate Post-Dialysis 66 BPM Standing Heart Rate Pre-Dialysis 72 BPM Standing Heart Rate Post-Dialysis 65 BPM Temperature Pre-Dialysis 98 degF Temperature Post -Dialysis 98.4 degF December 19, 2023 In-Center Hemodialysis Treatment 4636-06-19Z15:05:00.000Z [id number]:00:00.000Z BP Sitting (Pre-Dialysis) 157/109 mmHg BP Sitting (Post-Dialysis) 118/62 mmHg Concurrent Access: falseAV Fistula Upper Arm (Left) Arterial Sitting Heart Rate Pre-Dialysis 67 BPM BP Standi ng (Post-Dialysis) 148/83 mmHg Temperature Pre-Dialysis 98 degF Sitting Heart Ra te Post-Dialysis 64 BPM Standing Heart Rate Post-Yasmeen lysis 68 BPM Temperature Post-Dialysis 98 .2 degF December 17, 2023 In-Center Hemodialysis Treatment [id number]:00:00.000Z [id number]:07:37.000Z BP Sitting (Pre-Dialysis) 177/111 mmHg BP Sitting (Post-Dialysis) 127/62 mmHg Concurrent Access: falseAV Fistula Upper Arm (Left) Arterial BP Standing (Pre-Dialysis) 168/105 mmHg BP Standing (P ost-Dialysis) 152/77 mmHg Sitting Heart Rate Pre-Dialysis 67 BPM Sitting Heart Rate Post-Dialysis 66 BPM Standing Heart Rate Pre-Dialysis 67 BPM Standing Heart Rate Post-Dialysis 66 BPM Temperature Pre-Dialysis 97.7 degF Temperature Post -Dialysis 98.7 degF December 15, 2023 In-Center Hemodialysis Treatment [id number]:08:00.000Z [id number]:11:32.000Z BP Sitting (Pre-Dialysis) 173/101 mmHg BP Sitting (Post-Dialysis) 146/74 mmHg Concurrent Access: falseAV Fistula Upper Arm (Left) Arterial BP Standing (Pre-Dialysis) 172/122 mmHg BP Standing (P ost-Dialysis) 175/97 mmHg Sitting Heart Rate Pre-Dialysis 67 BPM Sitting Heart Rate Post-Dialysis 67 BPM Standing Heart Rate Pre-Dialysis 69 BPM Standing Heart Rate Post-Dialysis 70 BPM Temperature Pre-Dialysis 97.9 degF Temperature Post -Dialysis 98.6 degF December 12, 2023 In-Center Hemodialysis Treatment [id number]:01:32.000Z [id number]:01:32.000Z BP Sitting (Pre-Dialysis) 167/106 mmHg BP Sitting (Post-Dialysis) 135/75 mmHg Concurrent Access: falseAV Fistula Upper Arm (Left) Arterial BP Standing (Pre-Dialysis) 170/111 mmHg Sitti ng Heart Rate Post-Dialysis 65 BPM Sitting Heart Rate Pre-Dialysis 68 BPM Temperatu re Post-Dialysis 97.6 degF Standing Heart Rate Pre-Dialysis 73 BPM Temperature Pre-Dialysis 98.2 degF December 10, 2023 In-Center Hemodialysis Treatment [id number]:10:00.000Z [id number]:12:45.000Z BP Sitting (Pre-Dialysis) 158/97 mmHg BP Sitting (Post-Dialysis) 125/66 mmHg Concurrent Access: falseAV Fistula Upper Arm (Left) Arterial BP Standing (Pre-Dialysis) 151/98 mmHg BP Standing (P ost-Dialysis) 130/69 mmHg Sitting Heart Rate Pre-Dialysis 65 BPM Sitting Heart Rate Post-Dialysis 65 BPM Standing Heart Rate Pre-Dialysis 65 BPM Standing Heart Rate Post-Dialysis 67 BPM Temperature Pre-Dialysis 98 degF Temperature Post -Dialysis 97.9 degF December 08, 2023 In-Center Hemodialysis Treatment [id number]:09:00.000Z [id number]:16:36.000Z BP Sitting (Pre-Dialysis) 160/90 mmHg BP Sitting (Post-Dialysis) 132/59 mmHg Concurrent Access: falseAV Fistula Upper Arm (Left) Arterial BP Standing (Pre-Dialysis) 158/101 mmHg BP Standing (P ost-Dialysis) 150/76 mmHg Sitting Heart Rate Pre-Dialysis 66 BPM Sitting Heart Rate Post-Dialysis 66 BPM Standing Heart Rate Pre-Dialysis 68 BPM Standing Heart Rate Post-Dialysis 70 BPM Temperature Pre-Dialysis 98.2 degF Temperature Post -Dialysis 98 degF December 05, 2023 In-Center Hemodialysis Treatment [id number]:07:00.000Z 7331-70-63S59:17:00.000Z BP Sitting (Pre-Dialysis) 218/135 mmHg BP Sitting (Post-Dialysis) 167/82 mmHg Concurrent Access: falseAV Fistula Upper Arm (Left) Arterial BP Standing (Pre-Dialysis) 226/139 mmHg Sitti ng Heart Rate Post-Dialysis 81 BPM Sitting Heart Rate Pre-Dialysis 75 BPM Temperatu re Post-Dialysis 98.2 degF Standing Heart Rate Pre-Dialysis 77 BPM Temperature Pre-Dialysis 98 degF December 03, 2023 In-Center Hemodialysis Treatment [id number]:02:00.000Z 4350-13-12C03:00:04.000Z BP Sitting (Pre-Dialysis) 180/120 mmHg BP Sitting (Post-Dialysis) 173/94 mmHg Concurrent Access: falseAV Fistula Upper Arm (Left) Arterial BP Standing (Pre-Dialysis) 193/119 mmHg BP Standing (P ost-Dialysis) 171/89 mmHg Sitting Heart Rate Pre-Dialysis 65 BPM Sitting Heart Rate Post-Dialysis 66 BPM Standing Heart Rate Pre-Dialysis 67 BPM Standing Heart Rate Post-Dialysis 66 BPM Temperature Pre-Dialysis 97 degF Temperature Post -Dialysis 98.1 degF December 01, 2023 In-Center Hemodialysis Treatment [id number]:10:00.000Z [id number]:08:29.000Z BP Sitting (Pre-Dialysis) 213/129 mmHg BP Sitting (Post-Dialysis) 170/95 mmHg Concurrent Access: falseAV Fistula Upper Arm (Left) Arterial BP Standing (Pre-Dialysis) 213/132 mmHg BP Standing (P ost-Dialysis) 196/111 mmHg Sitting Heart Rate Pre-Dialysis 70 BPM Sitting Heart Rate Post-Dialysis 69 BPM Standing Heart Rate Pre-Dialysis 72 BPM Standing Heart Rate Post-Dialysis 71 BPM Temperature Pre-Dialysis 97.7 degF Temperature Post -Dialysis 98.7 degF November 28, 2023 In-Center Hemodialysis Treatment [id number]:59:59.000Z 7769-11-35S92:59:59.000Z BP Sitting (Pre-Dialysis) 196/131 mmHg BP Sitting (Post-Dialysis) 189/116 mmHg Concurrent Access: falseAV Fistula Upper Arm (Left) Arterial BP Standing (Pre-Dialysis) 202/131 mmHg BP Standing (P ost-Dialysis) 200/111 mmHg Sitting Heart Rate Pre-Dialysis 75 BPM Sitting Heart Rate Post-Dialysis 70 BPM Standing Heart Rate Pre-Dialysis 76 BPM Standing Heart Rate Post-Dialysis 72 BPM Temperature Pre-Dialysis 97.1 degF Temperature Post -Dialysis 96.2 degF November 26, 2023 In-Center Hemodialysis Treatment [id number]:01:26.000Z 7302-06-36U87:05:11.000Z BP Sitting (Pre-Dialysis) 190/128 mmHg BP Sitting (Post-Dialysis) 195/102 mmHg Concurrent Access: falseAV Fistula Upper Arm (Left) Arterial BP Standing (Pre-Dialysis) 194/122 mmHg Sitti ng Heart Rate Post-Dialysis 67 BPM Sitting Heart Rate Pre-Dialysis 68 BPM Temperatu re Post-Dialysis 98.7 degF Standing Heart Rate Pre-Dialysis 71 BPM Temperature Pre-Dialysis 97.6 degF November 24, 2023 In-Center Hemodialysis Treatment [id number]:18:16.000Z 8584-05-80P55:18:16.000Z BP Sitting (Pre-Dialysis) 214/133 mmHg BP Sitting (Post-Dialysis) 180/92 mmHg Concurrent Access: falseAV Fistula Upper Arm (Left) Arterial BP Standing (Pre-Dialysis) 212/134 mmHg BP Standing (P ost-Dialysis) 197/111 mmHg Sitting Heart Rate Pre-Dialysis 72 BPM Sitting Heart Rate Post-Dialysis 72 BPM Standing Heart Rate Pre-Dialysis 75 BPM Standing Heart Rate Post-Dialysis 72 BPM Temperature Pre-Dialysis 98.6 degF Temperature Post -Dialysis 98 degF November 21, 2023 In-Center Hemodialysis Treatment [id number]:10:00.000Z [id number]:14:11.000Z BP Sitting (Pre-Dialysis) 90/110 mmHg BP Sitting (Post-Dialysis) 161/90 mmHg Concurrent Access: falseAV Fistula Upper Arm (Left) Arterial BP Standing (Pre-Dialysis) 182/119 mmHg BP Standing (P ost-Dialysis) 178/96 mmHg Sitting Heart Rate Pre-Dialysis 66 BPM Sitting Heart Rate Post-Dialysis 62 BPM Standing Heart Rate Pre-Dialysis 70 BPM Standing Heart Rate Post-Dialysis 67 BPM Temperature Pre-Dialysis 98.3 degF Temperature Post -Dialysis 97.5 degF November 19, 2023 In-Center Hemodialysis Treatment [id number]:10:00.000Z [id number]:11:07.000Z BP Sitting (Pre-Dialysis) 212/131 mmHg BP Sitting (Post-Dialysis) 200/115 mmHg Concurrent Access: falseAV Fistula Upper Arm (Left) Arterial BP Standing (Pre-Dialysis) 169/125 mmHg BP Standing (P ost-Dialysis) 180/113 mmHg Sitting Heart Rate Pre-Dialysis 69 BPM Sitting Heart Rate Post-Dialysis 64 BPM Standing Heart Rate Pre-Dialysis 70 BPM Standing Heart Rate Post-Dialysis 66 BPM Temperature Pre-Dialysis 96.9 degF Temperature Post -Dialysis 97.9 degF November 17, 2023 In-Center Hemodialysis Treatment [id number]:04:36.000Z [id number]:05:01.000Z BP Sitting (Pre-Dialysis) 211/126 mmHg BP Sitting (Post-Dialysis) 182/111 mmHg Concurrent Access: falseAV Fistula Upper Arm (Left) Arterial BP Standing (Pre-Dialysis) 206/129 mmHg BP Standing (P ost-Dialysis) 194/114 mmHg Sitting Heart Rate Pre-Dialysis 70 BPM Sitting Heart Rate Post-Dialysis 65 BPM Standing Heart Rate Pre-Dialysis 70 BPM Standing Heart Rate Post-Dialysis 69 BPM Temperature Pre-Dialysis 97.1 degF Temperature Post -Dialysis 97.9 degF November 14, 2023 In-Center Hemodialysis Treatment [id number]:10:00.000Z [id number]:11:10.000Z BP Sitting (Pre-Dialysis) 203/122 mmHg BP Sitting (Post-Dialysis) 168/104 mmHg Concurrent Access: falseAV Fistula Upper Arm (Left) Arterial BP Standing (Pre-Dialysis) 200/120 mmHg BP Standing (P ost-Dialysis) 178/110 mmHg Sitting Heart Rate Pre-Dialysis 71 BPM Sitting Heart Rate Post-Dialysis 67 BPM Standing Heart Rate Pre-Dialysis 71 BPM Standing Heart Rate Post-Dialysis 68 BPM Temperature Pre-Dialysis 98.2 degF Temperature Post -Dialysis 97.7 degF November 12, 2023 In-Center Hemodialysis Treatment [id number]:13:00.000Z [id number]:13:21.000Z BP Sitting (Pre-Dialysis) 185/129 mmHg BP Sitting (Post-Dialysis) 167/98 mmHg Concurrent Access: falseAV Fistula Upper Arm (Left) Arterial BP Standing (Pre-Dialysis) 186/114 mmHg BP Standing (P ost-Dialysis) 182/99 mmHg Sitting Heart Rate Pre-Dialysis 68 BPM Sitting Heart Rate Post-Dialysis 61 BPM Standing Heart Rate Pre-Dialysis 69 BPM Standing Heart Rate Post-Dialysis 66 BPM Temperature Pre-Dialysis 97.7 degF Temperature Post -Dialysis 96.6 degF November 10, 2023 In-Center Hemodialysis Treatment [id number]:06:00.000Z 2878-70-83U35:09:26.000Z BP Sitting (Pre-Dialysis) 210/133 mmHg BP Sitting (Post-Dialysis) 188/114 mmHg Concurrent Access: falseAV Fistula Upper Arm (Left) Arterial BP Standing (Pre-Dialysis) 196/141 mmHg Sitti ng Heart Rate Post-Dialysis 62 BPM Sitting Heart Rate Pre-Dialysis 70 BPM Temperatu re Post-Dialysis 98.4 degF Standing Heart Rate Pre-Dialysis 70 BPM Temperature Pre-Dialysis 98 degF November 07, 2023 In-Center Hemodialysis Treatment [id number]:03:20.000Z 0649-01-41V56:04:10.000Z BP Sitting (Pre-Dialysis) 211/135 mmHg BP Sitting (Post-Dialysis) 206/116 mmHg Concurrent Access: falseAV Fistula Upper Arm (Left) Arterial BP Standing (Pre-Dialysis) 208/126 mmHg Sitti ng Heart Rate Post-Dialysis 70 BPM Sitting Heart Rate Pre-Dialysis 68 BPM Temperatu re Post-Dialysis 97.5 degF Standing Heart Rate Pre-Dialysis 68 BPM Temperature Pre-Dialysis 97 degF November 05, 2023 In-Center Hemodialysis Treatment [id number]:09:38.000Z 3882-38-08H18:11:43.000Z BP Sitting (Pre-Dialysis) 199/116 mmHg BP Sitting (Post-Dialysis) 198/113 mmHg Concurrent Access: falseAV Fistula Upper Arm (Left) Arterial BP Standing (Pre-Dialysis) 205/126 mmHg BP Standing (P ost-Dialysis) 193/107 mmHg Sitting Heart Rate Pre-Dialysis 62 BPM Sitting Heart Rate Post-Dialysis 62 BPM Standing Heart Rate Pre-Dialysis 65 BPM Standing Heart Rate Post-Dialysis 65 BPM Temperature Pre-Dialysis 97.6 degF Temperature Post -Dialysis 97.8 degF November 03, 2023 In-Center Hemodialysis Treatment [id number]:08:00.000Z 3605-20-35L77:13:00.000Z BP Sitting (Pre-Dialysis) 206/113 mmHg BP Sitting (Post-Dialysis) 184/115 mmHg Concurrent Access: falseAV Fistula Upper Arm (Left) Arterial BP Standing (Pre-Dialysis) 202/121 mmHg Sitti ng Heart Rate Post-Dialysis 68 BPM Sitting Heart Rate Pre-Dialysis 63 BPM Temperatu re Post-Dialysis 98.5 degF Standing Heart Rate Pre-Dialysis 68 BPM Temperature Pre-Dialysis 97.3 degF October 31, 2023 In-Center Hemodialysis Treatment 9739-13-92H24:03:00.000Z 1019-31-78J23:07:40.000Z BP Sitting (Pre-Dialysis) 192/108 mmHg BP Sitting (Post-Dialysis) 157/88 mmHg Concurrent Access: falseAV Fistula Upper Arm (Left) Arterial BP Standing (Pre-Dialysis) 173/100 mmHg BP Standing (P ost-Dialysis) 174/100 mmHg Sitting Heart Rate Pre-Dialysis 68 BPM Sitting Heart Rate Post-Dialysis 57 BPM Standing Heart Rate Pre-Dialysis 65 BPM Temperature Post-Dialysis 98.1 degF Temperature Pre-Dialysis 98.6 degF October 29, 2023 In-Center Hemodialysis Treatment [id number]:00:00.000Z [id number]:02:25.000Z BP Sitting (Pre-Dialysis) 195/114 mmHg BP Sitting (Post-Dialysis) 153/78 mmHg Concurrent Access: falseAV Fistula Upper Arm (Left) Arterial BP Standing (Pre-Dialysis) 190/127 mmHg BP Standing (P ost-Dialysis) 182/88 mmHg Sitting Heart Rate Pre-Dialysis 66 BPM Sitting Heart Rate Post-Dialysis 70 BPM Standing Heart Rate Pre-Dialysis 70 BPM Standing Heart Rate Post-Dialysis 79 BPM Temperature Pre-Dialysis 98.1 degF Temperature Post -Dialysis 98.4 degF October 27, 2023 In-Center Hemodialysis Treatment [id number]:00:00.000Z [id number]:03:49.000Z BP Sitting (Pre-Dialysis) 181/110 mmHg BP Sitting (Post-Dialysis) 151/78 mmHg Concurrent Access: falseAV Fistula Upper Arm (Left) Arterial BP Standing (Pre-Dialysis) 172/107 mmHg Sitti ng Heart Rate Post-Dialysis 66 BPM Sitting Heart Rate Pre-Dialysis 69 BPM Temperatu re Post-Dialysis 98.9 degF Standing Heart Rate Pre-Dialysis 69 BPM Temperature Pre-Dialysis 98.2 degF October 24, 2023 In-Center Hemodialysis Treatment [id number]:14:03.000Z 6169-74-76W52:42:54.000Z BP Sitting (Pre-Dialysis) 204/124 mmHg BP Sitting (Post-Dialysis) 174/79 mmHg Concurrent Access: falseAV Fistula Upper Arm (Left) Arterial BP Standing (Pre-Dialysis) 190/124 mmHg BP Standing (P ost-Dialysis) 186/104 mmHg Sitting Heart Rate Pre-Dialysis 69 BPM Sitting Heart Rate Post-Dialysis 68 BPM Standing Heart Rate Pre-Dialysis 70 BPM Standing Heart Rate Post-Dialysis 69 BPM Temperature Pre-Dialysis 98.4 degF Temperature Post -Dialysis 97.4 degF October 22, 2023 In-Center Hemodialysis Treatment [id number]:00:00.000Z 5760-00-92P59:05:04.000Z BP Sitting (Pre-Dialysis) 181/113 mmHg BP Sitting (Post-Dialysis) 135/74 mmHg Concurrent Access: falseAV Fistula Upper Arm (Left) Arterial BP Standing (Pre-Dialysis) 177/108 mmHg Sitti ng Heart Rate Post-Dialysis 65 BPM Sitting Heart Rate Pre-Dialysis 64 BPM Temperatu re Post-Dialysis 97.7 degF Standing Heart Rate Pre-Dialysis 67 BPM Temperature Pre-Dialysis 98.5 degF October 20, 2023 In-Center Hemodialysis Treatment [id number]:05:00.000Z [id number]:05:37.000Z BP Sitting (Pre-Dialysis) 190/120 mmHg BP Sitting (Post-Dialysis) 167/94 mmHg Concurrent Access: falseAV Fistula Upper Arm (Left) Arterial BP Standing (Pre-Dialysis) 190/113 mmHg BP Standing (P ost-Dialysis) 163/96 mmHg Sitting Heart Rate Pre-Dialysis 71 BPM Sitting Heart Rate Post-Dialysis 70 BPM Standing Heart Rate Pre-Dialysis 71 BPM Standing Heart Rate Post-Dialysis 70 BPM Temperature Pre-Dialysis 98.4 degF Temperature Post -Dialysis 97.7 degF October 17, 2023 In-Center Hemodialysis Treatment [id number]:00:00.000Z 5050-32-16O65:04:02.000Z BP Sitting (Pre-Dialysis) 168/104 mmHg BP Sitting (Post-Dialysis) 153/75 mmHg Concurrent Access: falseAV Fistula Upper Arm (Left) Arterial BP Standing (Pre-Dialysis) 170/104 mmHg BP Standing (P ost-Dialysis) 150/86 mmHg Sitting Heart Rate Pre-Dialysis 67 BPM Sitting Heart Rate Post-Dialysis 66 BPM Standing Heart Rate Pre-Dialysis 72 BPM Standing Heart Rate Post-Dialysis 67 BPM Temperature Pre-Dialysis 98 degF Temperature Post -Dialysis 98.1 degF October 15, 2023 In-Center Hemodialysis Treatment [id number]:04:25.000Z 5227-14-24D56:06:05.000Z BP Sitting (Pre-Dialysis) 181/116 mmHg BP Sitting (Post-Dialysis) 137/75 mmHg Concurrent Access: falseAV Fistula Upper Arm (Left) Arterial BP Standing (Pre-Dialysis) 177/104 mmHg Sitti ng Heart Rate Post-Dialysis 66 BPM Sitting Heart Rate Pre-Dialysis 67 BPM Temperatu re Post-Dialysis 98.3 degF Standing Heart Rate Pre-Dialysis 74 BPM Temperature Pre-Dialysis 98.1 degF October 13, 2023 In-Center Hemodialysis Treatment 6469-55-37K19:10:00.000Z 1387-84-24D64:16:05.000Z BP Sitting (Pre-Dialysis) 185/105 mmHg BP Sitting (Post-Dialysis) 151/82 mmHg Concurrent Access: falseAV Fistula Upper Arm (Left) Arterial BP Standing (Pre-Dialysis) 171/113 mmHg Sitting Heart Rate Post-Dialysis 66 BPM Sitting Heart Rate Pre-Dialysis 68 BPM Standing Heart Rate Pre-Dialysis 69 BPM Temperature Pre-Dialysis 97.7 degF October 10, 2023 In-Center Hemodialysis Treatment [id number]:10:16.000Z 4562-10-74O87:15:41.000Z BP Sitting (Pre-Dialysis) 183/113 mmHg BP Sitting (Post-Dialysis) 153/79 mmHg Concurrent Access: falseAV Fistula Upper Arm (Left) Arterial BP Standing (Pre-Dialysis) 188/115 mmHg Sitti ng Heart Rate Post-Dialysis 64 BPM Sitting Heart Rate Pre-Dialysis 66 BPM Temperatu re Post-Dialysis 96.7 degF Standing Heart Rate Pre-Dialysis 66 BPM Temperature Pre-Dialysis 98.2 degF October 08, 2023 In-Center Hemodialysis Treatment 3976-53-01I92:14:00.000Z [id number]:17:32.000Z BP Sitting (Pre-Dialysis) 196/103 mmHg BP Sitting (Post-Dialysis) 148/94 mmHg Concurrent Access: falseAV Fistula Upper Arm (Left) Arterial BP Standing (Pre-Dialysis) 178/110 mmHg Sitti ng Heart Rate Post-Dialysis 67 BPM Sitting Heart Rate Pre-Dialysis 66 BPM Temperatu re Post-Dialysis 97.7 degF Standing Heart Rate Pre-Dialysis 67 BPM Temperature Pre-Dialysis 97.6 degF October 06, 2023 In-Center Hemodialysis Treatment [id number]:09:00.000Z 7962-19-00W28:12:00.000Z BP Sitting (Pre-Dialysis) 193/114 mmHg BP Sitting (Post-Dialysis) 164/85 mmHg Concurrent Access: falseAV Fistula Upper Arm (Left) Arterial BP Standing (Pre-Dialysis) 183/115 mmHg BP Standing (P ost-Dialysis) 155/88 mmHg Sitting Heart Rate Pre-Dialysis 67 BPM Sitting Heart Rate Post-Dialysis 86 BPM Standing Heart Rate Pre-Dialysis 68 BPM Standing Heart Rate Post-Dialysis 69 BPM Temperature Pre-Dialysis 98.3 degF Temperature Post -Dialysis 97.9 degF October 03, 2023 In-Center Hemodialysis Treatment [id number]:05:00.000Z 1431-52-64C78:08:04.000Z BP Sitting (Pre-Dialysis) 172/114 mmHg BP Sitting (Post-Dialysis) 165/91 mmHg Concurrent Access: falseAV Fistula Upper Arm (Left) Arterial BP Standing (Pre-Dialysis) 170/103 mmHg Sitti ng Heart Rate Post-Dialysis 65 BPM Sitting Heart Rate Pre-Dialysis 65 BPM Temperatu re Post-Dialysis 98.7 degF Standing Heart Rate Pre-Dialysis 67 BPM Temperature Pre-Dialysis 98.1 degF October 01, 2023 In-Center Hemodialysis Treatment [id number]:06:52.000Z [id number]:08:32.000Z BP Sitting (Pre-Dialysis) 187/89 mmHg BP Sitting (Post-Dialysis) 164/94 mmHg Concurrent Access: falseAV Fistula Upper Arm (Left) Arterial BP Standing (Pre-Dialysis) 166/103 mmHg Sitti ng Heart Rate Post-Dialysis 69 BPM Sitting Heart Rate Pre-Dialysis 64 BPM Temperatu re Post-Dialysis 98.6 degF Standing Heart Rate Pre-Dialysis 72 BPM Temperature Pre-Dialysis 98 degF September 29, 2023 In-Center Hemodialysis Treatment 6750-26-80S47:05:46.000Z 1952-70-22O75:04:31.000Z BP Sitting (Pre-Dialysis) 207/129 mmHg BP Sitting (Post-Dialysis) 165/82 mmHg Concurrent Access: falseAV Fistula Upper Arm (Left) Arterial BP Standing (Pre-Dialysis) 188/121 mmHg BP Standing (P ost-Dialysis) 159/89 mmHg Sitting Heart Rate Pre-Dialysis 69 BPM Sitting Heart Rate Post-Dialysis 68 BPM Standing Heart Rate Pre-Dialysis 69 BPM Standing Heart Rate Post-Dialysis 68 BPM Temperature Pre-Dialysis 98.3 degF Temperature Post -Dialysis 99.3 degF September 26, 2023 In-Center Hemodialysis Treatment [id number]:01:00.000Z 4070-21-46A09:01:50.000Z BP Sitting (Pre-Dialysis) 173/97 mmHg BP Sitting (Post-Dialysis) 167/88 mmHg Concurrent Access: falseAV Fistula Upper Arm (Left) Arterial BP Standing (Pre-Dialysis) 163/119 mmHg BP Standing (P ost-Dialysis) 180/87 mmHg Sitting Heart Rate Pre-Dialysis 66 BPM Sitting Heart Rate Post-Dialysis 66 BPM Standing Heart Rate Pre-Dialysis 69 BPM Standing Heart Rate Post-Dialysis 68 BPM Temperature Pre-Dialysis 98.3 degF Temperature Post -Dialysis 98.4 degF September 24, 2023 In-Center Hemodialysis Treatment [id number]:12:04.000Z 0992-50-00L76:12:15.000Z BP Sitting (Pre-Dialysis) 188/109 mmHg BP Sitting (Post-Dialysis) 155/86 mmHg Concurrent Access: falseAV Fistula Upper Arm (Left) Arterial BP Standing (Pre-Dialysis) 171/116 mmHg BP Standing (P ost-Dialysis) 159/96 mmHg Sitting Heart Rate Pre-Dialysis 71 BPM Sitting Heart Rate Post-Dialysis 66 BPM Standing Heart Rate Pre-Dialysis 74 BPM Standing Heart Rate Post-Dialysis 70 BPM Temperature Pre-Dialysis 98.2 degF Temperature Post -Dialysis 98.7 degF September 22, 2023 In-Center Hemodialysis Treatment [id number]:04:13.000Z 8193-59-81S77:04:38.000Z BP Sitting (Pre-Dialysis) 176/110 mmHg BP Sitting (Post-Dialysis) 175/88 mmHg Concurrent Access: falseAV Fistula Upper Arm (Left) Arterial BP Standing (Pre-Dialysis) 192/110 mmHg BP Standing (P ost-Dialysis) 161/139 mmHg Sitting Heart Rate Pre-Dialysis 69 BPM Sitting Heart Rate Post-Dialysis 70 BPM Standing Heart Rate Pre-Dialysis 70 BPM Standing Heart Rate Post-Dialysis 59 BPM Temperature Pre-Dialysis 98.5 degF Temperature Post -Dialysis 98.4 degF September 19, 2023 In-Center Hemodialysis Treatment [id number]:08:00.000Z [id number]:10:33.000Z BP Sitting (Pre-Dialysis) 199/109 mmHg BP Sitting (Post-Dialysis) 160/82 mmHg Concurrent Access: falseAV Fistula Upper Arm (Left) Arterial BP Standing (Pre-Dialysis) 197/111 mmHg BP Standing (P ost-Dialysis) 156/84 mmHg Sitting Heart Rate Pre-Dialysis 71 BPM Sitting Heart Rate Post-Dialysis 68 BPM Standing Heart Rate Pre-Dialysis 74 BPM Standing Heart Rate Post-Dialysis 69 BPM Temperature Pre-Dialysis 96.1 degF Temperature Post -Dialysis 98.1 degF September 17, 2023 In-Center Hemodialysis Treatment [id number]:07:57.000Z 5992-85-56J54:08:22.000Z BP Sitting (Pre-Dialysis) 176/99 mmHg BP Sitting (Post-Dialysis) 128/91 mmHg Concurrent Access: falseAV Fistula Upper Arm (Left) Arterial BP Standing (Pre-Dialysis) 156/110 mmHg BP Standing (P ost-Dialysis) 157/84 mmHg Sitting Heart Rate Pre-Dialysis 68 BPM Sitting Heart Rate Post-Dialysis 68 BPM Standing Heart Rate Pre-Dialysis 89 BPM Standing Heart Rate Post-Dialysis 72 BPM Temperature Pre-Dialysis 98.1 degF Temperature Post -Dialysis 98.7 degF September 15, 2023 In-Center Hemodialysis Treatment 4820-14-07F40:03:00.000Z 4922-46-11A59:06:10.000Z BP Sitting (Pre-Dialysis) 191/116 mmHg BP Sitting (Post-Dialysis) 185/96 mmHg Concurrent Access: falseAV Fistula Upper Arm (Left) Arterial BP Standing (Pre-Dialysis) 197/114 mmHg BP Standing (P ost-Dialysis) 185/99 mmHg Sitting Heart Rate Pre-Dialysis 69 BPM Sitting Heart Rate Post-Dialysis 68 BPM Standing Heart Rate Pre-Dialysis 66 BPM Standing Heart Rate Post-Dialysis 70 BPM Temperature Pre-Dialysis 98.3 degF September 12, 2023 In-Center Hemodialysis Treatment [id number]:05:00.000Z 0801-10-27A86:08:55.000Z BP Sitting (Pre-Dialysis) 185/114 mmHg BP Sitting (Post-Dialysis) 165/88 mmHg Concurrent Access: falseAV Fistula Upper Arm (Left) Arterial BP Standing (Pre-Dialysis) 179/108 mmHg Sitti ng Heart Rate Post-Dialysis 68 BPM Sitting Heart Rate Pre-Dialysis 74 BPM Temperatu re Post-Dialysis 98.7 degF Standing Heart Rate Pre-Dialysis 72 BPM Temperature Pre-Dialysis 97.7 degF September 10, 2023 In-Center Hemodialysis Treatment [id number]:15:00.000Z [id number]:18:28.000Z BP Sitting (Pre-Dialysis) 186/112 mmHg BP Sitting (Post-Dialysis) 184/91 mmHg Concurrent Access: falseAV Fistula Upper Arm (Left) Arterial BP Standing (Pre-Dialysis) 187/116 mmHg BP Standing (P ost-Dialysis) 190/80 mmHg Sitting Heart Rate Pre-Dialysis 69 BPM Sitting Heart Rate Post-Dialysis 73 BPM Standing Heart Rate Pre-Dialysis 69 BPM Standing Heart Rate Post-Dialysis 71 BPM Temperature Pre-Dialysis 98.3 degF Temperature Post -Dialysis 98.2 degF September 08, 2023 In-Center Hemodialysis Treatment [id number]:57:05.000Z 2824-25-64A95:54:10.000Z BP Sitting (Pre-Dialysis) 182/77 mmHg BP Sitting (Post-Dialysis) 154/103 mmHg Concurrent Access: falseAV Fistula Upper Arm (Left) Arterial BP Standing (Pre-Dialysis) 183/106 mmHg Sitti ng Heart Rate Post-Dialysis 73 BPM Sitting Heart Rate Pre-Dialysis 72 BPM Temperatu re Post-Dialysis 98 degF Standing Heart Rate Pre-Dialysis 74 BPM Temperature Pre-Dialysis 98.2 degF September 05, 2023 In-Center Hemodialysis Treatment [id number]:01:22.000Z 7551-70-99K22:01:22.000Z BP Sitting (Pre-Dialysis) 211/122 mmHg BP Sitting (Post-Dialysis) 154/87 mmHg Concurrent Access: falseAV Fistula Upper Arm (Left) Arterial BP Standing (Pre-Dialysis) 182/113 mmHg BP Standing (P ost-Dialysis) 146/98 mmHg Sitting Heart Rate Pre-Dialysis 71 BPM Sitting Heart Rate Post-Dialysis 71 BPM Standing Heart Rate Pre-Dialysis 73 BPM Standing Heart Rate Post-Dialysis 72 BPM Temperature Pre-Dialysis 98.1 degF Temperature Post -Dialysis 98.7 degF September 03, 2023 In-Center Hemodialysis Treatment [id number]:59:36.000Z 2438-79-24R70:00:01.000Z BP Sitting (Pre-Dialysis) 199/120 mmHg BP Sitting (Post-Dialysis) 156/77 mmHg Concurrent Access: falseAV Fistula Upper Arm (Left) Arterial BP Standing (Pre-Dialysis) 182/115 mmHg BP Standing (P ost-Dialysis) 155/88 mmHg Sitting Heart Rate Pre-Dialysis 71 BPM Sitting Heart Rate Post-Dialysis 60 BPM Standing Heart Rate Pre-Dialysis 73 BPM Standing Heart Rate Post-Dialysis 73 BPM Temperature Pre-Dialysis 98.3 degF Temperature Post -Dialysis 98.4 degF September 01, 2023 In-Center Hemodialysis Treatment 8510-27-31S39:04:00.000Z 3852-76-96Y23:06:31.000Z BP Sitting (Pre-Dialysis) 180/102 mmHg BP Sitting (Post-Dialysis) 156/86 mmHg Concurrent Access: falseAV Fistula Upper Arm (Left) Arterial BP Standing (Pre-Dialysis) 182/110 mmHg BP Standing (P ost-Dialysis) 171/100 mmHg Sitting Heart Rate Pre-Dialysis 70 BPM Sitting Heart Rate Post-Dialysis 73 BPM Standing Heart Rate Pre-Dialysis 74 BPM Standing Heart Rate Post-Dialysis 77 BPM Temperature Pre-Dialysis 98.6 degF Temperature Post -Dialysis 97.4 degF August 29, 2023 In-Center Hemodialysis Treatment [id number]:04:05.000Z [id number]:09:30.000Z BP Sitting (Pre-Dialysis) 167/100 mmHg BP Sitting (Post-Dialysis) 143/80 mmHg Concurrent Access: falseAV Fistula Upper Arm (Left) Arterial BP Standing (Pre-Dialysis) 145/95 mmHg BP Standing (P ost-Dialysis) 149/76 mmHg Sitting Heart Rate Pre-Dialysis 72 BPM Sitting Heart Rate Post-Dialysis 77 BPM Standing Heart Rate Pre-Dialysis 74 BPM Standing Heart Rate Post-Dialysis 75 BPM Temperature Pre-Dialysis 98 degF Temperature Post -Dialysis 98.2 degF August 27, 2023 In-Center Hemodialysis Treatment [id number]:06:00.000Z [id number]:08:37.000Z BP Sitting (Pre-Dialysis) 198/112 mmHg BP Sitting (Post-Dialysis) 151/106 mmHg Concurrent Access: falseAV Fistula Upper Arm (Left) Arterial BP Standing (Pre-Dialysis) 199/128 mmHg BP Standing (P ost-Dialysis) 186/108 mmHg Sitting Heart Rate Pre-Dialysis 76 BPM Sitting Heart Rate Post-Dialysis 83 BPM Standing Heart Rate Pre-Dialysis 89 BPM Standing Heart Rate Post-Dialysis 80 BPM Temperature Pre-Dialysis 98.7 degF Temperature Post -Dialysis 97.4 degF August 25, 2023 In-Center Hemodialysis Treatment [id number]:04:00.000Z [id number]:07:43.000Z BP Sitting (Pre-Dialysis) 180/115 mmHg BP Sitting (Post-Dialysis) 157/85 mmHg Concurrent Access: falseAV Fistula Upper Arm (Left) Arterial BP Standing (Pre-Dialysis) 175/110 mmHg BP Standing (P ost-Dialysis) 150/80 mmHg Sitting Heart Rate Pre-Dialysis 71 BPM Sitting Heart Rate Post-Dialysis 65 BPM Standing Heart Rate Pre-Dialysis 72 BPM Standing Heart Rate Post-Dialysis 65 BPM Temperature Pre-Dialysis 97.1 degF Temperature Post -Dialysis 98.3 degF August 22, 2023 In-Center Hemodialysis Treatment [id number]:54:00.000Z [id number]:01:21.000Z BP Sitting (Pre-Dialysis) 178/104 mmHg BP Sitting (Post-Dialysis) 196/68 mmHg Concurrent Access: falseAV Fistula Upper Arm (Left) Arterial BP Standing (Pre-Dialysis) 188/119 mmHg BP Standing (P ost-Dialysis) 162/85 mmHg Sitting Heart Rate Pre-Dialysis 66 BPM Sitting Heart Rate Post-Dialysis 64 BPM Standing Heart Rate Pre-Dialysis 72 BPM Standing Heart Rate Post-Dialysis 68 BPM Temperature Pre-Dialysis 98.5 degF Temperature Post -Dialysis 98 degF August 20, 2023 In-Center Hemodialysis Treatment [id number]:07:12.000Z [id number]:14:42.000Z BP Sitting (Pre-Dialysis) 180/109 mmHg BP Sitting (Post-Dialysis) 161/86 mmHg Concurrent Access: falseAV Fistula Upper Arm (Left) Arterial BP Standing (Pre-Dialysis) 170/104 mmHg Sitti ng Heart Rate Post-Dialysis 63 BPM Sitting Heart Rate Pre-Dialysis 66 BPM Temperatu re Post-Dialysis 98.6 degF Standing Heart Rate Pre-Dialysis 67 BPM Temperature Pre-Dialysis 98 degF August 18, 2023 In-Center Hemodialysis Treatment [id number]:13:00.000Z [id number]:13:31.000Z BP Sitting (Pre-Dialysis) 183/119 mmHg BP Sitting (Post-Dialysis) 142/79 mmHg Concurrent Access: falseAV Fistula Upper Arm (Left) Arterial BP Standing (Pre-Dialysis) 180/114 mmHg BP Standing (P ost-Dialysis) 153/80 mmHg Sitting Heart Rate Pre-Dialysis 78 BPM Sitting Heart Rate Post-Dialysis 75 BPM Standing Heart Rate Pre-Dialysis 70 BPM Standing Heart Rate Post-Dialysis 76 BPM Temperature Pre-Dialysis 97.8 degF Temperature Post -Dialysis 97.9 degF August 15, 2023 In-Center Hemodialysis Treatment [id number]:07:11.000Z [id number]:05:00.000Z BP Sitting (Pre-Dialysis) 181/111 mmHg BP Sitting (Post-Dialysis) 149/73 mmHg Concurrent Access: falseAV Fistula Upper Arm (Left) Arterial BP Standing (Pre-Dialysis) 178/114 mmHg Sitti ng Heart Rate Post-Dialysis 69 BPM Sitting Heart Rate Pre-Dialysis 72 BPM Temperatu re Post-Dialysis 98.4 degF Standing Heart Rate Pre-Dialysis 73 BPM Temperature Pre-Dialysis 98 degF August 13, 2023 In-Center Hemodialysis Treatment [id number]:58:00.000Z [id number]:05:15.000Z BP Sitting (Pre-Dialysis) 187/123 mmHg BP Sitting (Post-Dialysis) 169/83 mmHg Concurrent Access: falseAV Fistula Upper Arm (Left) Arterial BP Standing (Pre-Dialysis) 191/102 mmHg Sitting Heart Rate Post-Dialysis 72 BPM Sitting Heart Rate Pre-Dialysis 76 BPM Standing Heart Rate Pre-Dialysis 76 BPM Temperature Pre-Dialysis 97 degF August 11, 2023 In-Center Hemodialysis Treatment [id number]:07:13.000Z [id number]:07:38.000Z BP Sitting (Pre-Dialysis) 175/106 mmHg BP Sitting (Post-Dialysis) 162/93 mmHg Concurrent Access: falseAV Fistula Upper Arm (Left) Arterial BP Standing (Pre-Dialysis) 184/104 mmHg BP Standing (P ost-Dialysis) 140/86 mmHg Sitting Heart Rate Pre-Dialysis 67 BPM Sitting Heart Rate Post-Dialysis 73 BPM Standing Heart Rate Pre-Dialysis 70 BPM Standing Heart Rate Post-Dialysis 75 BPM Temperature Pre-Dialysis 98 degF Temperature Post -Dialysis 98.6 degF August 08, 2023 In-Center Hemodialysis Treatment [id number]:07:39.000Z [id number]:07:39.000Z BP Sitting (Pre-Dialysis) 181/110 mmHg BP Sitting (Post-Dialysis) 134/74 mmHg Concurrent Access: falseAV Fistula Upper Arm (Left) Arterial BP Standing (Pre-Dialysis) 168/102 mmHg BP Standing (P ost-Dialysis) 155/96 mmHg Sitting Heart Rate Pre-Dialysis 68 BPM Sitting Heart Rate Post-Dialysis 71 BPM Standing Heart Rate Pre-Dialysis 70 BPM Standing Heart Rate Post-Dialysis 79 BPM Temperature Pre-Dialysis 98.4 degF Temperature Post -Dialysis 98.2 degF August 06, 2023 In-Center Hemodialysis Treatment [id number]:08:40.000Z [id number]:09:05.000Z BP Sitting (Pre-Dialysis) 186/108 mmHg BP Sitting (Post-Dialysis) 152/81 mmHg Concurrent Access: falseAV Fistula Upper Arm (Left) Arterial BP Standing (Pre-Dialysis) 176/103 mmHg Sitti ng Heart Rate Post-Dialysis 66 BPM Sitting Heart Rate Pre-Dialysis 64 BPM Temperatu re Post-Dialysis 98.9 degF Standing Heart Rate Pre-Dialysis 64 BPM Temperature Pre-Dialysis 97.6 degF August 04, 2023 In-Center Hemodialysis Treatment [id number]:04:11.000Z [id number]:03:02.000Z BP Sitting (Pre-Dialysis) 174/107 mmHg BP Sitting (Post-Dialysis) 141/68 mmHg Concurrent Access: falseAV Fistula Upper Arm (Left) Arterial BP Standing (Pre-Dialysis) 181/114 mmHg BP Standing (P ost-Dialysis) 151/95 mmHg Sitting Heart Rate Pre-Dialysis 66 BPM Sitting Heart Rate Post-Dialysis 68 BPM Standing Heart Rate Pre-Dialysis 70 BPM Standing Heart Rate Post-Dialysis 72 BPM Temperature Pre-Dialysis 98.1 degF Temperature Post -Dialysis 98.7 degF August 01, 2023 In-Center Hemodialysis Treatment [id number]:11:47.000Z [id number]:11:35.000Z BP Sitting (Pre-Dialysis) 168/100 mmHg BP Sitting (Post-Dialysis) 146/76 mmHg Concurrent Access: falseAV Fistula Upper Arm (Left) Arterial BP Standing (Pre-Dialysis) 170/96 mmHg BP Standing (P ost-Dialysis) 157/78 mmHg Sitting Heart Rate Pre-Dialysis 70 BPM Sitting Heart Rate Post-Dialysis 69 BPM Standing Heart Rate Pre-Dialysis 70 BPM Standing Heart Rate Post-Dialysis 69 BPM Temperature Pre-Dialysis 98.4 degF Temperature Post -Dialysis 98.4 degF July 30, 2023 In-Center Hemodialysis Treatment [id number]:00:00.000Z [id number]:09:56.000Z BP Sitting (Pre-Dialysis) 169/100 mmHg BP Sitting (Post-Dialysis) 135/74 mmHg Concurrent Access: falseAV Fistula Upper Arm (Left) Arterial BP Standing (Pre-Dialysis) 169/103 mmHg BP Standing (P ost-Dialysis) 135/83 mmHg Sitting Heart Rate Pre-Dialysis 72 BPM Sitting Heart Rate Post-Dialysis 68 BPM Standing Heart Rate Pre-Dialysis 75 BPM Standing Heart Rate Post-Dialysis 67 BPM Temperature Pre-Dialysis 98 degF Temperature Post -Dialysis 98.4 degF July 28, 2023 In-Center Hemodialysis Treatment [id number]:14:10.000Z [id number]:15:25.000Z BP Sitting (Pre-Dialysis) 185/110 mmHg BP Sitting (Post-Dialysis) 149/78 mmHg Concurrent Access: falseAV Fistula Upper Arm (Left) Arterial BP Standing (Pre-Dialysis) 162/108 mmHg Sitti ng Heart Rate Post-Dialysis 72 BPM Sitting Heart Rate Pre-Dialysis 69 BPM Temperatu re Post-Dialysis 98.2 degF Standing Heart Rate Pre-Dialysis 75 BPM Temperature Pre-Dialysis 98.2 degF July 25, 2023 In-Center Hemodialysis Treatment [id number]:06:00.000Z [id number]:10:36.000Z BP Sitting (Pre-Dialysis) 164/95 mmHg BP Sitting (Post-Dialysis) 136/70 mmHg Concurrent Access: falseAV Fistula Upper Arm (Left) Arterial BP Standing (Pre-Dialysis) 137/96 mmHg Sitti ng Heart Rate Post-Dialysis 64 BPM Sitting Heart Rate Pre-Dialysis 67 BPM Temperatu re Post-Dialysis 98.2 degF Standing Heart Rate Pre-Dialysis 71 BPM Temperature Pre-Dialysis 98.2 degF July 23, 2023 In-Center Hemodialysis Treatment 5512-18-18Q03:10:00.000Z 4315-87-40T97:12:13.000Z BP Sitting (Pre-Dialysis) 169/96 mmHg BP Sitting (Post-Dialysis) 146/69 mmHg Concurrent Access: falseAV Fistula Upper Arm (Left) Arterial BP Standing (Pre-Dialysis) 172/108 mmHg BP Standing (P ost-Dialysis) 177/81 mmHg Sitting Heart Rate Pre-Dialysis 71 BPM Sitting Heart Rate Post-Dialysis 76 BPM Standing Heart Rate Pre-Dialysis 74 BPM Standing Heart Rate Post-Dialysis 73 BPM Temperature Pre-Dialysis 98.4 degF Temperature Post -Dialysis 98.3 degF July 21, 2023 In-Center Hemodialysis Treatment [id number]:07:23.000Z 8039-95-29T13:07:48.000Z BP Sitting (Pre-Dialysis) 176/104 mmHg BP Sitting (Post-Dialysis) 145/82 mmHg Concurrent Access: falseAV Fistula Upper Arm (Left) Arterial BP Standing (Pre-Dialysis) 174/106 mmHg Sitti ng Heart Rate Post-Dialysis 68 BPM Sitting Heart Rate Pre-Dialysis 64 BPM Temperatu re Post-Dialysis 98.1 degF Standing Heart Rate Pre-Dialysis 66 BPM Temperature Pre-Dialysis 98.8 degF July 18, 2023 In-Center Hemodialysis Treatment [id number]:09:58.000Z [id number]:09:58.000Z BP Sitting (Pre-Dialysis) 167/106 mmHg BP Sitting (Post-Dialysis) 151/88 mmHg Concurrent Access: falseAV Fistula Upper Arm (Left) Arterial BP Standing (Pre-Dialysis) 178/109 mmHg BP Standing (P ost-Dialysis) 155/84 mmHg Sitting Heart Rate Pre-Dialysis 63 BPM Sitting Heart Rate Post-Dialysis 73 BPM Standing Heart Rate Pre-Dialysis 77 BPM Standing Heart Rate Post-Dialysis 71 BPM Temperature Pre-Dialysis 97.7 degF Temperature Post -Dialysis 98.2 degF July 16, 2023 In-Center Hemodialysis Treatment [id number]:06:00.000Z 7011-65-95T98:12:00.000Z BP Sitting (Pre-Dialysis) 178/116 mmHg BP Sitting (Post-Dialysis) 136/77 mmHg Concurrent Access: falseAV Fistula Upper Arm (Left) Arterial BP Standing (Pre-Dialysis) 177/115 mmHg BP Standing (P ost-Dialysis) 163/64 mmHg Sitting Heart Rate Pre-Dialysis 67 BPM Sitting Heart Rate Post-Dialysis 64 BPM Standing Heart Rate Pre-Dialysis 69 BPM Standing Heart Rate Post-Dialysis 68 BPM Temperature Pre-Dialysis 97.9 degF Temperature Post -Dialysis 98.1 degF July 14, 2023 In-Center Hemodialysis Treatment [id number]:06:23.000Z 0633-57-67H21:12:13.000Z BP Sitting (Pre-Dialysis) 203/118 mmHg BP Sitting (Post-Dialysis) 140/70 mmHg Concurrent Access: falseAV Fistula Upper Arm (Left) Arterial BP Standing (Pre-Dialysis) 181/115 mmHg BP Standing (P ost-Dialysis) 152/86 mmHg Sitting Heart Rate Pre-Dialysis 70 BPM Sitting Heart Rate Post-Dialysis 66 BPM Standing Heart Rate Pre-Dialysis 70 BPM Standing Heart Rate Post-Dialysis 74 BPM Temperature Pre-Dialysis 97.2 degF Temperature Post -Dialysis 98.1 degF July 11, 2023 In-Center Hemodialysis Treatment 2650-94-98Q82:12:00.000Z [id number]:14:06.000Z BP Sitting (Pre-Dialysis) 188/105 mmHg BP Sitting (Post-Dialysis) 146/82 mmHg Concurrent Access: falseAV Fistula Upper Arm (Left) Arterial BP Standing (Pre-Dialysis) 182/112 mmHg Sitti ng Heart Rate Post-Dialysis 64 BPM Sitting Heart Rate Pre-Dialysis 68 BPM Temperatu re Post-Dialysis 98.7 degF Standing Heart Rate Pre-Dialysis 72 BPM Temperature Pre-Dialysis 97.8 degF July 09, 2023 In-Center Hemodialysis Treatment [id number]:08:55.000Z [id number]:10:10.000Z BP Sitting (Pre-Dialysis) 164/97 mmHg BP Sitting (Post-Dialysis) 166/95 mmHg Concurrent Access: falseAV Fistula Upper Arm (Left) Arterial BP Standing (Pre-Dialysis) 171/103 mmHg BP Standing (P ost-Dialysis) 160/97 mmHg Sitting Heart Rate Pre-Dialysis 62 BPM Sitting Heart Rate Post-Dialysis 64 BPM Standing Heart Rate Pre-Dialysis 65 BPM Standing Heart Rate Post-Dialysis 75 BPM Temperature Pre-Dialysis 98 degF Temperature Post -Dialysis 98.8 degF July 07, 2023 In-Center Hemodialysis Treatment [id number]:00:00.000Z [id number]:03:23.000Z BP Sitting (Pre-Dialysis) 185/114 mmHg BP Sitting (Post-Dialysis) 174/84 mmHg Concurrent Access: falseAV Fistula Upper Arm (Left) Arterial BP Standing (Pre-Dialysis) 182/114 mmHg BP Standing (P ost-Dialysis) 176/92 mmHg Sitting Heart Rate Pre-Dialysis 69 BPM Sitting Heart Rate Post-Dialysis 66 BPM Standing Heart Rate Pre-Dialysis 69 BPM Standing Heart Rate Post-Dialysis 65 BPM Temperature Pre-Dialysis 97.8 degF Temperature Post -Dialysis 98.1 degF July 04, 2023 In-Center Hemodialysis Treatment [id number]:06:48.000Z [id number]:06:48.000Z BP Sitting (Pre-Dialysis) 189/113 mmHg BP Sitting (Post-Dialysis) 144/80 mmHg Concurrent Access: falseAV Fistula Upper Arm (Left) Arterial BP Standing (Pre-Dialysis) 170/112 mmHg BP Standing (P ost-Dialysis) 172/95 mmHg Sitting Heart Rate Pre-Dialysis 66 BPM Sitting Heart Rate Post-Dialysis 71 BPM Standing Heart Rate Pre-Dialysis 71 BPM Standing Heart Rate Post-Dialysis 68 BPM Temperature Pre-Dialysis 97.9 degF July 02, 2023 In-Center Hemodialysis Treatment [id number]:00:00.000Z [id number]:06:48.000Z BP Sitting (Pre-Dialysis) 183/113 mmHg BP Sitting (Post-Dialysis) 156/86 mmHg Concurrent Access: falseAV Fistula Upper Arm (Left) Arterial BP Standing (Pre-Dialysis) 105/69 mmHg BP Standing (P ost-Dialysis) 154/97 mmHg Sitting Heart Rate Pre-Dialysis 69 BPM Sitting Heart Rate Post-Dialysis 64 BPM Standing Heart Rate Pre-Dialysis 78 BPM Standing Heart Rate Post-Dialysis 69 BPM Temperature Pre-Dialysis 98 degF Temperature Post -Dialysis 98.6 degF June 30, 2023 In-Center Hemodialysis Treatment [id number]:07:59.000Z [id number]:09:39.000Z BP Sitting (Pre-Dialysis) 168/102 mmHg BP Sitting (Post-Dialysis) 176/89 mmHg Concurrent Access: falseAV Fistula Upper Arm (Left) Arterial BP Standing (Pre-Dialysis) 172/110 mmHg BP Standing (P ost-Dialysis) 176/89 mmHg Sitting Heart Rate Pre-Dialysis 66 BPM Sitting Heart Rate Post-Dialysis 69 BPM Standing Heart Rate Pre-Dialysis 69 BPM Standing Heart Rate Post-Dialysis 68 BPM Temperature Pre-Dialysis 96.5 degF Temperature Post -Dialysis 98.1 degF June 27, 2023 In-Center Hemodialysis Treatment [id number]:00:00.000Z [id number]:06:47.000Z BP Sitting (Pre-Dialysis) 188/119 mmHg BP Sitting (Post-Dialysis) 160/83 mmHg Concurrent Access: falseAV Fistula Upper Arm (Left) Arterial BP Standing (Pre-Dialysis) 175/114 mmHg BP Standing (P ost-Dialysis) 161/83 mmHg Sitting Heart Rate Pre-Dialysis 73 BPM Sitting Heart Rate Post-Dialysis 72 BPM Standing Heart Rate Pre-Dialysis 73 BPM Standing Heart Rate Post-Dialysis 73 BPM Temperature Pre-Dialysis 97.7 degF Temperature Post -Dialysis 98.2 degF June 25, 2023 In-Center Hemodialysis Treatment [id number]:08:00.000Z [id number]:14:19.000Z BP Sitting (Pre-Dialysis) 170/106 mmHg BP Sitting (Post-Dialysis) 141/99 mmHg Concurrent Access: falseAV Fistula Upper Arm (Left) Arterial BP Standing (Pre-Dialysis) 162/103 mmHg Sitti ng Heart Rate Post-Dialysis 84 BPM Sitting Heart Rate Pre-Dialysis 70 BPM Temperatu re Post-Dialysis 98.6 degF Standing Heart Rate Pre-Dialysis 70 BPM Temperature Pre-Dialysis 98.3 degF June 23, 2023 In-Center Hemodialysis Treatment 7943-95-07Z40:05:00.000Z 9166-47-58E74:09:29.000Z BP Sitting (Pre-Dialysis) 174/112 mmHg BP Sitting (Post-Dialysis) 130/73 mmHg Concurrent Access: falseAV Fistula Upper Arm (Left) Arterial BP Standing (Pre-Dialysis) 184/112 mmHg BP Standing (P ost-Dialysis) 150/90 mmHg Sitting Heart Rate Pre-Dialysis 69 BPM Sitting Heart Rate Post-Dialysis 78 BPM Standing Heart Rate Pre-Dialysis 69 BPM Standing Heart Rate Post-Dialysis 80 BPM Temperature Pre-Dialysis 98.2 degF Temperature Post -Dialysis 97 degF June 20, 2023 In-Center Hemodialysis Treatment [id number]:11:45.000Z 6321-64-15G41:12:10.000Z BP Sitting (Pre-Dialysis) 169/107 mmHg BP Sitting (Post-Dialysis) 159/82 mmHg Concurrent Access: falseAV Fistula Upper Arm (Left) Arterial BP Standing (Pre-Dialysis) 169/101 mmHg Sitti ng Heart Rate Post-Dialysis 69 BPM Sitting Heart Rate Pre-Dialysis 71 BPM Temperatu re Post-Dialysis 98.7 degF Standing Heart Rate Pre-Dialysis 69 BPM Temperature Pre-Dialysis 97.6 degF June 18, 2023 In-Center Hemodialysis Treatment [id number]:06:00.000Z [id number]:12:43.000Z BP Sitting (Pre-Dialysis) 155/95 mmHg BP Sitting (Post-Dialysis) 135/74 mmHg Concurrent Access: falseAV Fistula Upper Arm (Left) Arterial BP Standing (Pre-Dialysis) 166/97 mmHg BP Standing (P ost-Dialysis) 143/71 mmHg Sitting Heart Rate Pre-Dialysis 67 BPM Sitting Heart Rate Post-Dialysis 65 BPM Standing Heart Rate Pre-Dialysis 68 BPM Standing Heart Rate Post-Dialysis 67 BPM Temperature Pre-Dialysis 98 degF Temperature Post -Dialysis 98.5 degF June 16, 2023 In-Center Hemodialysis Treatment [id number]:08:00.000Z [id number]:13:04.000Z BP Sitting (Pre-Dialysis) 194/121 mmHg BP Sitting (Post-Dialysis) 139/74 mmHg Concurrent Access: falseAV Fistula Upper Arm (Left) Arterial BP Standing (Pre-Dialysis) 192/116 mmHg BP Standing (P ost-Dialysis) 142/92 mmHg Sitting Heart Rate Pre-Dialysis 74 BPM Sitting Heart Rate Post-Dialysis 75 BPM Standing Heart Rate Pre-Dialysis 73 BPM Standing Heart Rate Post-Dialysis 78 BPM Temperature Pre-Dialysis 98.2 degF Temperature Post -Dialysis 98.5 degF June 13, 2023 In-Center Hemodialysis Treatment [id number]:09:12.000Z [id number]:13:22.000Z BP Sitting (Pre-Dialysis) 181/115 mmHg BP Sitting (Post-Dialysis) 153/71 mmHg Concurrent Access: falseAV Fistula Upper Arm (Left) Arterial BP Standing (Pre-Dialysis) 191/116 mmHg BP Standing (P ost-Dialysis) 163/90 mmHg Sitting Heart Rate Pre-Dialysis 73 BPM Sitting Heart Rate Post-Dialysis 73 BPM Standing Heart Rate Pre-Dialysis 76 BPM Standing Heart Rate Post-Dialysis 74 BPM Temperature Pre-Dialysis 98 degF Temperature Post -Dialysis 98.7 degF June 11, 2023 In-Center Hemodialysis Treatment [id number]:14:00.000Z [id number]:16:46.000Z BP Sitting (Pre-Dialysis) 179/115 mmHg BP Sitting (Post-Dialysis) 130/61 mmHg Concurrent Access: falseAV Fistula Upper Arm (Left) Arterial BP Standing (Pre-Dialysis) 176/106 mmHg BP Standing (P ost-Dialysis) 160/89 mmHg Sitting Heart Rate Pre-Dialysis 70 BPM Sitting Heart Rate Post-Dialysis 72 BPM Standing Heart Rate Pre-Dialysis 74 BPM Standing Heart Rate Post-Dialysis 72 BPM Temperature Pre-Dialysis 98.2 degF Temperature Post -Dialysis 98.2 degF June 09, 2023 In-Center Hemodialysis Treatment [id number]:17:00.000Z [id number]:16:47.000Z BP Sitting (Pre-Dialysis) 197/132 mmHg BP Sitting (Post-Dialysis) 147/77 mmHg Concurrent Access: falseAV Fistula Upper Arm (Left) Arterial BP Standing (Pre-Dialysis) 200/120 mmHg Sitti ng Heart Rate Post-Dialysis 73 BPM Sitting Heart Rate Pre-Dialysis 74 BPM Temperatu re Post-Dialysis 98.1 degF Standing Heart Rate Pre-Dialysis 77 BPM Temperature Pre-Dialysis 98.3 degF June 06, 2023 In-Center Hemodialysis Treatment [id number]:06:02.000Z 1639-75-38L15:06:52.000Z BP Sitting (Pre-Dialysis) 197/126 mmHg BP Sitting (Post-Dialysis) 136/87 mmHg Concurrent Access: falseAV Fistula Upper Arm (Left) Arterial BP Standing (Pre-Dialysis) 194/131 mmHg BP Standing (P ost-Dialysis) 160/95 mmHg Sitting Heart Rate Pre-Dialysis 75 BPM Sitting Heart Rate Post-Dialysis 73 BPM Standing Heart Rate Pre-Dialysis 79 BPM Standing Heart Rate Post-Dialysis 71 BPM Temperature Pre-Dialysis 97.3 degF Temperature Post -Dialysis 98 degF June 04, 2023 In-Center Hemodialysis Treatment [id number]:16:13.000Z [id number]:16:38.000Z BP Sitting (Pre-Dialysis) 201/118 mmHg BP Sitting (Post-Dialysis) 140/80 mmHg Concurrent Access: falseAV Fistula Upper Arm (Left) Arterial BP Standing (Pre-Dialysis) 192/115 mmHg Sitti ng Heart Rate Post-Dialysis 72 BPM Sitting Heart Rate Pre-Dialysis 72 BPM Temperatu re Post-Dialysis 98.5 degF Standing Heart Rate Pre-Dialysis 74 BPM Temperature Pre-Dialysis 97.8 degF June 02, 2023 In-Center Hemodialysis Treatment [id number]:58:00.000Z [id number]:06:52.000Z BP Sitting (Pre-Dialysis) 202/124 mmHg BP Sitting (Post-Dialysis) 143/77 mmHg Concurrent Access: falseAV Fistula Upper Arm (Left) Arterial BP Standing (Pre-Dialysis) 196/123 mmHg BP Standing (P ost-Dialysis) 170/87 mmHg Sitting Heart Rate Pre-Dialysis 75 BPM Sitting Heart Rate Post-Dialysis 79 BPM Standing Heart Rate Pre-Dialysis 76 BPM Standing Heart Rate Post-Dialysis 82 BPM Temperature Pre-Dialysis 98.3 degF Temperature Post -Dialysis 97.3 degF May 30, 2023 In-Center Hemodialysis Treatment [id number]:16:16.000Z 7731-08-04H81:15:26.000Z BP Sitting (Pre-Dialysis) 178/108 mmHg BP Sitting (Post-Dialysis) 151/80 mmHg Concurrent Access: falseAV Fistula Upper Arm (Left) Arterial BP Standing (Pre-Dialysis) 175/106 mmHg Sitti ng Heart Rate Post-Dialysis 66 BPM Sitting Heart Rate Pre-Dialysis 77 BPM Temperatu re Post-Dialysis 98.2 degF Standing Heart Rate Pre-Dialysis 74 BPM Temperature Pre-Dialysis 98.2 degF May 28, 2023 In-Center Hemodialysis Treatment [id number]:04:43.000Z [id number]:03:53.000Z BP Sitting (Pre-Dialysis) 181/122 mmHg BP Sitting (Post-Dialysis) 151/79 mmHg Concurrent Access: falseAV Fistula Upper Arm (Left) Arterial BP Standing (Pre-Dialysis) 180/117 mmHg BP Standing (P ost-Dialysis) 159/89 mmHg Sitting Heart Rate Pre-Dialysis 72 BPM Sitting Heart Rate Post-Dialysis 74 BPM Standing Heart Rate Pre-Dialysis 72 BPM Standing Heart Rate Post-Dialysis 77 BPM Temperature Pre-Dialysis 98 degF May 26, 2023 In-Center Hemodialysis Treatment [id number]:01:00.000Z 6906-27-13N84:09:46.000Z BP Sitting (Pre-Dialysis) 201/121 mmHg BP Sitting (Post-Dialysis) 178/89 mmHg Concurrent Access: falseAV Fistula Upper Arm (Left) Arterial BP Standing (Pre-Dialysis) 189/117 mmHg BP Standing (P ost-Dialysis) 160/85 mmHg Sitting Heart Rate Pre-Dialysis 73 BPM Sitting Heart Rate Post-Dialysis 72 BPM Standing Heart Rate Pre-Dialysis 76 BPM Standing Heart Rate Post-Dialysis 72 BPM Temperature Pre-Dialysis 98.6 degF Temperature Post -Dialysis 98.6 degF May 23, 2023 In-Center Hemodialysis Treatment 0712-10-93A41:09:00.000Z [id number]:12:48.000Z BP Sitting (Pre-Dialysis) 200/123 mmHg BP Sitting (Post-Dialysis) 156/93 mmHg Concurrent Access: falseAV Fistula Upper Arm (Left) Arterial BP Standing (Pre-Dialysis) 180/113 mmHg BP Standing (P ost-Dialysis) 163/99 mmHg Sitting Heart Rate Pre-Dialysis 72 BPM Sitting Heart Rate Post-Dialysis 70 BPM Standing Heart Rate Pre-Dialysis 72 BPM Standing Heart Rate Post-Dialysis 68 BPM Temperature Pre-Dialysis 97.7 degF Temperature Post -Dialysis 97.9 degF May 21, 2023 In-Center Hemodialysis Treatment [id number]:09:56.000Z [id number]:26:36.000Z BP Sitting (Pre-Dialysis) 186/123 mmHg BP Sitting (Post-Dialysis) 145/74 mmHg Concurrent Access: falseAV Fistula Upper Arm (Left) Arterial BP Standing (Pre-Dialysis) 190/124 mmHg BP Standing (P ost-Dialysis) 150/70 mmHg Sitting Heart Rate Pre-Dialysis 76 BPM Sitting Heart Rate Post-Dialysis 72 BPM Standing Heart Rate Pre-Dialysis 76 BPM Standing Heart Rate Post-Dialysis 70 BPM Temperature Pre-Dialysis 98.5 degF Temperature Post -Dialysis 97.6 degF May 19, 2023 In-Center Hemodialysis Treatment [id number]:11:19.000Z [id number]:13:24.000Z BP Sitting (Pre-Dialysis) 194/119 mmHg BP Sitting (Post-Dialysis) 151/80 mmHg Concurrent Access: falseAV Fistula Upper Arm (Left) Arterial BP Standing (Pre-Dialysis) 196/124 mmHg BP Standing (P ost-Dialysis) 151/82 mmHg Sitting Heart Rate Pre-Dialysis 75 BPM Sitting Heart Rate Post-Dialysis 80 BPM Standing Heart Rate Pre-Dialysis 76 BPM Standing Heart Rate Post-Dialysis 83 BPM Temperature Pre-Dialysis 98.2 degF Temperature Post -Dialysis 98.7 degF May 16, 2023 In-Center Hemodialysis Treatment [id number]:06:18.000Z [id number]:10:53.000Z BP Sitting (Pre-Dialysis) 178/114 mmHg BP Sitting (Post-Dialysis) 170/93 mmHg Concurrent Access: falseAV Fistula Upper Arm (Left) Arterial BP Standing (Pre-Dialysis) 169/106 mmHg BP Standing (P ost-Dialysis) 149/89 mmHg Sitting Heart Rate Pre-Dialysis 76 BPM Sitting Heart Rate Post-Dialysis 71 BPM Standing Heart Rate Pre-Dialysis 75 BPM Standing Heart Rate Post-Dialysis 72 BPM Temperature Pre-Dialysis 98.2 degF Temperature Post -Dialysis 97.4 degF May 14, 2023 In-Center Hemodialysis Treatment [id number]:14:41.000Z [id number]:18:51.000Z BP Sitting (Pre-Dialysis) 179/109 mmHg BP Sitting (Post-Dialysis) 152/87 mmHg Concurrent Access: falseAV Fistula Upper Arm (Left) Arterial BP Standing (Pre-Dialysis) 184/110 mmHg Sitti ng Heart Rate Post-Dialysis 72 BPM Sitting Heart Rate Pre-Dialysis 73 BPM Temperatu re Post-Dialysis 98.1 degF Standing Heart Rate Pre-Dialysis 72 BPM Temperature Pre-Dialysis 98 degF May 12, 2023 In-Center Hemodialysis Treatment [id number]:11:11.000Z [id number]:12:01.000Z BP Sitting (Pre-Dialysis) 167/108 mmHg BP Sitting (Post-Dialysis) 28/68 mmHg Concurrent Access: falseAV Fistula Upper Arm (Left) Arterial BP Standing (Pre-Dialysis) 178/114 mmHg BP Standing (P ost-Dialysis) 139/87 mmHg Sitting Heart Rate Pre-Dialysis 74 BPM Sitting Heart Rate Post-Dialysis 75 BPM Standing Heart Rate Pre-Dialysis 73 BPM Standing Heart Rate Post-Dialysis 76 BPM Temperature Pre-Dialysis 98.1 degF Temperature Post -Dialysis 98.3 degF May 09, 2023 In-Center Hemodialysis Treatment [id number]:09:53.000Z [id number]:14:03.000Z BP Sitting (Pre-Dialysis) 201/131 mmHg BP Sitting (Post-Dialysis) 167/75 mmHg Concurrent Access: falseAV Fistula Upper Arm (Left) Arterial BP Standing (Pre-Dialysis) 189/117 mmHg BP Standing (P ost-Dialysis) 162/86 mmHg Sitting Heart Rate Pre-Dialysis 76 BPM Sitting Heart Rate Post-Dialysis 71 BPM Standing Heart Rate Pre-Dialysis 75 BPM Standing Heart Rate Post-Dialysis 77 BPM Temperature Pre-Dialysis 98.1 degF Temperature Post -Dialysis 97.9 degF 2023 In-Center Hemodialysis Treatment [id number]:09:48.000Z [id number]:18:40.000Z BP Sitting (Pre-Dialysis) 177/114 mmHg BP Sitting (Post-Dialysis) 135/82 mmHg Concurrent Access: falseAV Fistula Upper Arm (Left) Arterial BP Standing (Pre-Dialysis) 167/115 mmHg Sitti ng Heart Rate Post-Dialysis 78 BPM Sitting Heart Rate Pre-Dialysis 71 BPM Temperatu re Post-Dialysis 97.6 degF Standing Heart Rate Pre-Dialysis 72 BPM Temperature Pre-Dialysis 97.9 degF May 05, 2023 In-Center Hemodialysis Treatment [id number]:08:38.000Z [id number]:17:23.000Z BP Sitting (Pre-Dialysis) 196/127 mmHg BP Sitting (Post-Dialysis) 165/62 mmHg Concurrent Access: falseAV Fistula Upper Arm (Left) Arterial BP Standing (Pre-Dialysis) 199/131 mmHg BP Standing (P ost-Dialysis) 148/82 mmHg Sitting Heart Rate Pre-Dialysis 78 BPM Sitting Heart Rate Post-Dialysis 74 BPM Standing Heart Rate Pre-Dialysis 80 BPM Standing Heart Rate Post-Dialysis 69 BPM Temperature Pre-Dialysis 97.2 degF Temperature Post -Dialysis 98.1 degF May 02, 2023 In-Center Hemodialysis Treatment [id number]:02:00.000Z 8327-85-74I76:12:34.000Z BP Sitting (Pre-Dialysis) 171/112 mmHg BP Sitting (Post-Dialysis) 136/73 mmHg Concurrent Access: falseAV Fistula Upper Arm (Left) Arterial BP Standing (Pre-Dialysis) 182/128 mmHg BP Standing (P ost-Dialysis) 139/76 mmHg Sitting Heart Rate Pre-Dialysis 77 BPM Sitting Heart Rate Post-Dialysis 68 BPM Standing Heart Rate Pre-Dialysis 77 BPM Standing Heart Rate Post-Dialysis 70 BPM Temperature Pre-Dialysis 98 degF Temperature Post -Dialysis 98.3 degF April 30, 2023 In-Center Hemodialysis Treatment [id number]:05:47.000Z [id number]:08:17.000Z BP Sitting (Pre-Dialysis) 203/134 mmHg BP Sitting (Post-Dialysis) 160/68 mmHg Concurrent Access: falseAV Fistula Upper Arm (Left) Arterial BP Standing (Pre-Dialysis) 202/119 mmHg BP Standing (P ost-Dialysis) 135/81 mmHg Sitting Heart Rate Pre-Dialysis 87 BPM Sitting Heart Rate Post-Dialysis 73 BPM Standing Heart Rate Pre-Dialysis 88 BPM Standing Heart Rate Post-Dialysis 90 BPM Temperature Pre-Dialysis 97.6 degF Temperature Post -Dialysis 98.5 degF April 28, 2023 In-Center Hemodialysis Treatment [id number]:09:28.000Z 4477-85-69O34:10:00.000Z BP Sitting (Pre-Dialysis) 198/128 mmHg BP Sitting (Post-Dialysis) 151/82 mmHg Concurrent Access: falseAV Fistula Upper Arm (Left) Arterial BP Standing (Pre-Dialysis) 186/121 mmHg BP Standing (P ost-Dialysis) 157/93 mmHg Sitting Heart Rate Pre-Dialysis 84 BPM Sitting Heart Rate Post-Dialysis 71 BPM Standing Heart Rate Pre-Dialysis 85 BPM Standing Heart Rate Post-Dialysis 73 BPM Temperature Pre-Dialysis 99.1 degF Temperature Post -Dialysis 98.1 degF April 25, 2023 In-Center Hemodialysis Treatment 3932-95-90W51:16:30.000Z 4557-95-12P24:17:45.000Z BP Sitting (Pre-Dialysis) 168/112 mmHg BP Sitting (Post-Dialysis) 149/82 mmHg Concurrent Access: falseAV Fistula Upper Arm (Left) Arterial BP Standing (Pre-Dialysis) 177/114 mmHg BP Standing (P ost-Dialysis) 155/97 mmHg Sitting Heart Rate Pre-Dialysis 74 BPM Sitting Heart Rate Post-Dialysis 69 BPM Standing Heart Rate Pre-Dialysis 77 BPM Standing Heart Rate Post-Dialysis 71 BPM Temperature Pre-Dialysis 98.2 degF Temperature Post -Dialysis 98.2 degF April 23, 2023 In-Center Hemodialysis Treatment [id number]:05:12.000Z [id number]:05:12.000Z BP Sitting (Pre-Dialysis) 199/131 mmHg BP Sitting (Post-Dialysis) 150/87 mmHg Concurrent Access: falseAV Fistula Upper Arm (Left) Arterial BP Standing (Pre-Dialysis) 182/119 mmHg BP Standing (P ost-Dialysis) 141/83 mmHg Sitting Heart Rate Pre-Dialysis 77 BPM Sitting Heart Rate Post-Dialysis 72 BPM Standing Heart Rate Pre-Dialysis 76 BPM Standing Heart Rate Post-Dialysis 69 BPM Temperature Pre-Dialysis 98.8 degF Temperature Post -Dialysis 98.4 degF April 21, 2023 In-Center Hemodialysis Treatment 4035-53-68G94:05:00.000Z 0810-70-47D77:07:21.000Z BP Sitting (Pre-Dialysis) 194/128 mmHg BP Sitting (Post-Dialysis) 163/88 mmHg Concurrent Access: falseAV Fistula Upper Arm (Left) Arterial BP Standing (Pre-Dialysis) 193/113 mmHg Sitti ng Heart Rate Post-Dialysis 71 BPM Sitting Heart Rate Pre-Dialysis 74 BPM Temperatu re Post-Dialysis 98.9 degF Standing Heart Rate Pre-Dialysis 77 BPM Temperature Pre-Dialysis 99.1 degF April 18, 2023 In-Center Hemodialysis Treatment 2702-37-20N94:11:00.000Z 4833-51-38R89:11:53.000Z BP Sitting (Pre-Dialysis) 188/119 mmHg BP Sitting (Post-Dialysis) 171/75 mmHg Concurrent Access: falseAV Fistula Upper Arm (Left) Arterial BP Standing (Pre-Dialysis) 195/118 mmHg Sitti ng Heart Rate Post-Dialysis 76 BPM Sitting Heart Rate Pre-Dialysis 81 BPM Temperatu re Post-Dialysis 97.1 degF Standing Heart Rate Pre-Dialysis 81 BPM Temperature Pre-Dialysis 98.7 degF April 16, 2023 In-Center Hemodialysis Treatment [id number]:02:00.000Z 1224-85-06M11:04:30.000Z BP Sitting (Pre-Dialysis) 191/120 mmHg BP Sitting (Post-Dialysis) 127/77 mmHg Concurrent Access: falseAV Fistula Upper Arm (Left) Arterial BP Standing (Pre-Dialysis) 192/120 mmHg Sitti ng Heart Rate Post-Dialysis 71 BPM Sitting Heart Rate Pre-Dialysis 79 BPM Temperatu re Post-Dialysis 98.6 degF Standing Heart Rate Pre-Dialysis 80 BPM Temperature Pre-Dialysis 98.1 degF April 14, 2023 In-Center Hemodialysis Treatment 1056-57-55E59:02:31.000Z 2822-15-38Q44:05:51.000Z BP Sitting (Pre-Dialysis) 195/130 mmHg BP Sitting (Post-Dialysis) 137/73 mmHg Concurrent Access: falseAV Fistula Upper Arm (Left) Arterial BP Standing (Pre-Dialysis) 196/118 mmHg BP Standing (P ost-Dialysis) 151/80 mmHg Sitting Heart Rate Pre-Dialysis 82 BPM Sitting Heart Rate Post-Dialysis 79 BPM Standing Heart Rate Pre-Dialysis 78 BPM Standing Heart Rate Post-Dialysis 77 BPM Temperature Pre-Dialysis 98.2 degF Temperature Post -Dialysis 98 degF April 11, 2023 In-Center Hemodialysis Treatment 0796-66-77J99:10:09.000Z 3395-49-76T80:18:29.000Z BP Sitting (Pre-Dialysis) 157/96 mmHg BP Sitting (Post-Dialysis) 139/78 mmHg Concurrent Access: falseAV Fistula Upper Arm (Left) Arterial BP Standing (Pre-Dialysis) 178/110 mmHg BP Standing (P ost-Dialysis) 146/81 mmHg Sitting Heart Rate Pre-Dialysis 78 BPM Sitting Heart Rate Post-Dialysis 75 BPM Standing Heart Rate Pre-Dialysis 81 BPM Standing Heart Rate Post-Dialysis 76 BPM Temperature Pre-Dialysis 98.8 degF Temperature Post -Dialysis 98.4 degF April 09, 2023 In-Center Hemodialysis Treatment 2688-54-32U53:03:00.000Z [id number]:06:41.000Z BP Sitting (Pre-Dialysis) 187/122 mmHg BP Sitting (Post-Dialysis) 131/72 mmHg Concurrent Access: falseAV Fistula Upper Arm (Left) Arterial BP Standing (Pre-Dialysis) 180/118 mmHg Sitti ng Heart Rate Post-Dialysis 75 BPM Sitting Heart Rate Pre-Dialysis 79 BPM Temperatu re Post-Dialysis 98.6 degF Standing Heart Rate Pre-Dialysis 78 BPM Temperature Pre-Dialysis 97.3 degF April 07, 2023 In-Center Hemodialysis Treatment [id number]:03:00.000Z 4188-36-86X43:05:03.000Z BP Sitting (Pre-Dialysis) 201/125 mmHg BP Sitting (Post-Dialysis) 146/76 mmHg Concurrent Access: falseAV Fistula Upper Arm (Left) Arterial BP Standing (Pre-Dialysis) 196/125 mmHg BP Standing (P ost-Dialysis) 157/80 mmHg Sitting Heart Rate Pre-Dialysis 79 BPM Sitting Heart Rate Post-Dialysis 79 BPM Standing Heart Rate Pre-Dialysis 82 BPM Standing Heart Rate Post-Dialysis 83 BPM Temperature Pre-Dialysis 98.6 degF Temperature Post -Dialysis 98.6 degF April 04, 2023 In-Center Hemodialysis Treatment [id number]:59:00.000Z 9885-41-57V22:02:21.000Z BP Sitting (Pre-Dialysis) 164/107 mmHg BP Sitting (Post-Dialysis) 147/85 mmHg Concurrent Access: falseAV Fistula Upper Arm (Left) Arterial BP Standing (Pre-Dialysis) 193/115 mmHg Sitti ng Heart Rate Post-Dialysis 72 BPM Sitting Heart Rate Pre-Dialysis 74 BPM Temperatu re Post-Dialysis 98.8 degF Standing Heart Rate Pre-Dialysis 73 BPM Temperature Pre-Dialysis 97.7 degF April 02, 2023 In-Center Hemodialysis Treatment 9025-68-12M82:05:00.000Z 5557-52-43I29:12:44.000Z BP Sitting (Pre-Dialysis) 166/107 mmHg BP Sitting (Post-Dialysis) 142/83 mmHg Concurrent Access: falseAV Fistula Upper Arm (Left) Arterial BP Standing (Pre-Dialysis) 167/103 mmHg BP Standing (P ost-Dialysis) 146/87 mmHg Sitting Heart Rate Pre-Dialysis 72 BPM Sitting Heart Rate Post-Dialysis 75 BPM Standing Heart Rate Pre-Dialysis 73 BPM Standing Heart Rate Post-Dialysis 75 BPM Temperature Pre-Dialysis 98.2 degF Temperature Post -Dialysis 98.7 degF March 31, 2023 In-Center Hemodialysis Treatment 2234-71-30A79:13:20.000Z 8712-91-52V53:15:00.000Z BP Sitting (Pre-Dialysis) 184/116 mmHg BP Sitting (Post-Dialysis) 153/85 mmHg Concurrent Access: falseAV Fistula Upper Arm (Left) Arterial BP Standing (Pre-Dialysis) 174/115 mmHg BP Standing (P ost-Dialysis) 175/91 mmHg Sitting Heart Rate Pre-Dialysis 72 BPM Sitting Heart Rate Post-Dialysis 73 BPM Standing Heart Rate Pre-Dialysis 72 BPM Standing Heart Rate Post-Dialysis 74 BPM Temperature Pre-Dialysis 98.4 degF Temperature Post -Dialysis 98.3 degF March 28, 2023 In-Center Hemodialysis Treatment 4529-99-03N65:17:00.000Z [id number]:19:16.000Z BP Sitting (Pre-Dialysis) 168/114 mmHg BP Sitting (Post-Dialysis) 145/80 mmHg Concurrent Access: falseAV Fistula Upper Arm (Left) Arterial BP Standing (Pre-Dialysis) 171/113 mmHg Sitti ng Heart Rate Post-Dialysis 72 BPM Sitting Heart Rate Pre-Dialysis 82 BPM Temperatu re Post-Dialysis 97 degF Standing Heart Rate Pre-Dialysis 81 BPM Temperature Pre-Dialysis 98.4 degF March 26, 2023 In-Center Hemodialysis Treatment 2394-70-93O40:03:00.000Z 6570-74-36M88:09:04.000Z BP Sitting (Pre-Dialysis) 166/108 mmHg BP Sitting (Post-Dialysis) 139/76 mmHg Concurrent Access: falseAV Fistula Upper Arm (Left) Arterial BP Standing (Pre-Dialysis) 183/119 mmHg BP Standing (P ost-Dialysis) 133/80 mmHg Sitting Heart Rate Pre-Dialysis 78 BPM Sitting Heart Rate Post-Dialysis 74 BPM Standing Heart Rate Pre-Dialysis 81 BPM Standing Heart Rate Post-Dialysis 79 BPM Temperature Pre-Dialysis 98.6 degF Temperature Post -Dialysis 98 degF March 24, 2023 In-Center Hemodialysis Treatment 3500-95-16B99:00:00.000Z 1948-48-97A31:02:06.000Z BP Sitting (Pre-Dialysis) 183/115 mmHg BP Sitting (Post-Dialysis) 152/79 mmHg Concurrent Access: falseAV Fistula Upper Arm (Left) Arterial BP Standing (Pre-Dialysis) 178/121 mmHg Sitting Heart Rate Post-Dialysis 81 BPM Sitting Heart Rate Pre-Dialysis 78 BPM Standing Heart Rate Pre-Dialysis 80 BPM Temperature Pre-Dialysis 98.5 degF March 21, 2023 In-Center Hemodialysis Treatment 6649-33-08Q52:05:00.000Z 2320-45-43M52:07:32.000Z BP Sitting (Pre-Dialysis) 188/121 mmHg BP Sitting (Post-Dialysis) 168/91 mmHg Concurrent Access: falseAV Fistula Upper Arm (Left) Arterial BP Standing (Pre-Dialysis) 187/123 mmHg BP Standing (P ost-Dialysis) 197/87 mmHg Sitting Heart Rate Pre-Dialysis 81 BPM Sitting Heart Rate Post-Dialysis 80 BPM Standing Heart Rate Pre-Dialysis 84 BPM Standing Heart Rate Post-Dialysis 75 BPM Temperature Pre-Dialysis 98.1 degF Temperature Post -Dialysis 99.3 degF March 19, 2023 In-Center Hemodialysis Treatment 0288-03-31W59:04:50.000Z 9669-71-27U59:04:50.000Z BP Sitting (Pre-Dialysis) 180/119 mmHg BP Sitting (Post-Dialysis) 155/83 mmHg Concurrent Access: falseAV Fistula Upper Arm (Left) Arterial BP Standing (Pre-Dialysis) 183/120 mmHg BP Standing (P ost-Dialysis) 183/95 mmHg Sitting Heart Rate Pre-Dialysis 82 BPM Sitting Heart Rate Post-Dialysis 80 BPM Standing Heart Rate Pre-Dialysis 85 BPM Standing Heart Rate Post-Dialysis 80 BPM Temperature Pre-Dialysis 97.7 degF Temperature Post -Dialysis 99.3 degF March 17, 2023 In-Center Hemodialysis Treatment [id number]:09:27.000Z [id number]:11:07.000Z BP Sitting (Pre-Dialysis) 189/128 mmHg BP Sitting (Post-Dialysis) 155/90 mmHg Concurrent Access: falseAV Fistula Upper Arm (Left) Arterial BP Standing (Pre-Dialysis) 183/124 mmHg BP Standing (P ost-Dialysis) 183/88 mmHg Sitting Heart Rate Pre-Dialysis 74 BPM Sitting Heart Rate Post-Dialysis 72 BPM Standing Heart Rate Pre-Dialysis 76 BPM Standing Heart Rate Post-Dialysis 75 BPM Temperature Pre-Dialysis 97.3 degF Temperature Post -Dialysis 98.6 degF March 14, 2023 In-Center Hemodialysis Treatment [id number]:05:00.000Z 9629-58-84G79:06:31.000Z BP Sitting (Pre-Dialysis) 181/130 mmHg BP Sitting (Post-Dialysis) 169/81 mmHg Concurrent Access: falseAV Fistula Upper Arm (Left) Arterial BP Standing (Pre-Dialysis) 189/127 mmHg BP Standing (P ost-Dialysis) 166/97 mmHg Sitting Heart Rate Pre-Dialysis 82 BPM Sitting Heart Rate Post-Dialysis 77 BPM Standing Heart Rate Pre-Dialysis 85 BPM Standing Heart Rate Post-Dialysis 78 BPM Temperature Pre-Dialysis 97.9 degF Temperature Post -Dialysis 98.7 degF March 11, 2023 In-Center Hemodialysis Treatment 4038-94-13J33:03:00.000Z 5988-13-95U59:10:54.000Z BP Sitting (Pre-Dialysis) 187/115 mmHg BP Sitting (Post-Dialysis) 150/65 mmHg Concurrent Access: falseAV Fistula Upper Arm (Left) Arterial BP Standing (Pre-Dialysis) 177/119 mmHg BP Standing (P ost-Dialysis) 138/77 mmHg Sitting Heart Rate Pre-Dialysis 83 BPM Sitting Heart Rate Post-Dialysis 77 BPM Standing Heart Rate Pre-Dialysis 84 BPM Standing Heart Rate Post-Dialysis 79 BPM Temperature Pre-Dialysis 98 degF Temperature Post -Dialysis 98.7 degF March 09, 2023 In-Center Hemodialysis Treatment [id number]:58:00.000Z 8815-63-43V46:16:52.000Z BP Sitting (Pre-Dialysis) 175/109 mmHg BP Sitting (Post-Dialysis) 144/89 mmHg Concurrent Access: falseAV Fistula Upper Arm (Left) Arterial BP Standing (Pre-Dialysis) 160/112 mmHg BP Standing (P ost-Dialysis) 149/97 mmHg Sitting Heart Rate Pre-Dialysis 77 BPM Sitting Heart Rate Post-Dialysis 74 BPM Standing Heart Rate Pre-Dialysis 77 BPM Standing Heart Rate Post-Dialysis 76 BPM Temperature Pre-Dialysis 97.6 degF Temperature Post -Dialysis 98.7 degF March 07, 2023 In-Center Hemodialysis Treatment 4981-12-66H49:01:00.000Z 6647-12-92N26:10:11.000Z BP Sitting (Pre-Dialysis) 181/124 mmHg BP Sitting (Post-Dialysis) 175/106 mmHg Concurrent Access: falseAV Fistula Upper Arm (Left) Arterial BP Standing (Pre-Dialysis) 190/116 mmHg Sitti ng Heart Rate Post-Dialysis 71 BPM Sitting Heart Rate Pre-Dialysis 78 BPM Temperatu re Post-Dialysis 98.2 degF Standing Heart Rate Pre-Dialysis 78 BPM Temperature Pre-Dialysis 97.3 degF March 05, 2023 In-Center Hemodialysis Treatment [id number]:08:56.000Z 5634-71-33J81:08:56.000Z BP Sitting (Pre-Dialysis) 179/121 mmHg BP Sitting (Post-Dialysis) 169/104 mmHg Concurrent Access: falseAV Fistula Upper Arm (Left) Arterial BP Standing (Pre-Dialysis) 169/117 mmHg Sitti ng Heart Rate Post-Dialysis 73 BPM Sitting Heart Rate Pre-Dialysis 73 BPM Temperatu re Post-Dialysis 98.8 degF Standing Heart Rate Pre-Dialysis 75 BPM Temperature Pre-Dialysis 97.6 degF March 03, 2023 In-Center Hemodialysis Treatment [id number]:59:00.000Z 3378-80-00C17:17:39.000Z BP Sitting (Pre-Dialysis) 202/131 mmHg BP Sitting (Post-Dialysis) 170/105 mmHg Concurrent Access: falseAV Fistula Upper Arm (Left) Arterial BP Standing (Pre-Dialysis) 95/128 mmHg BP Standing (P ost-Dialysis) 169/111 mmHg Sitting Heart Rate Pre-Dialysis 73 BPM Sitting Heart Rate Post-Dialysis 70 BPM Standing Heart Rate Pre-Dialysis 72 BPM Standing Heart Rate Post-Dialysis 74 BPM Temperature Pre-Dialysis 97.8 degF Temperature Post -Dialysis 98.7 degF February 28, 2023 In-Center Hemodialysis Treatment [id number]:18:26.000Z 8500-57-50O96:21:46.000Z BP Sitting (Pre-Dialysis) 201/115 mmHg BP Sitting (Post-Dialysis) 171/113 mmHg Concurrent Access: falseAV Fistula Upper Arm (Left) Arterial BP Standing (Pre-Dialysis) 192/124 mmHg BP Standing (P ost-Dialysis) 178/113 mmHg Sitting Heart Rate Pre-Dialysis 77 BPM Sitting Heart Rate Post-Dialysis 66 BPM Standing Heart Rate Pre-Dialysis 78 BPM Standing Heart Rate Post-Dialysis 71 BPM Temperature Pre-Dialysis 97.9 degF Temperature Post -Dialysis 98.2 degF February 26, 2023 In-Center Hemodialysis Treatment [id number]:56:00.000Z 0916-45-96I07:07:36.000Z BP Sitting (Pre-Dialysis) 181/111 mmHg BP Sitting (Post-Dialysis) 154/99 mmHg Concurrent Access: falseAV Fistula Upper Arm (Left) Arterial BP Standing (Pre-Dialysis) 181/114 mmHg BP Standing (P ost-Dialysis) 165/106 mmHg Sitting Heart Rate Pre-Dialysis 67 BPM Sitting Heart Rate Post-Dialysis 70 BPM Standing Heart Rate Pre-Dialysis 68 BPM Standing Heart Rate Post-Dialysis 68 BPM Temperature Pre-Dialysis 98.3 degF Temperature Post -Dialysis 98 degF February 24, 2023 In-Center Hemodialysis Treatment [id number]:12:38.000Z [id number]:15:08.000Z BP Sitting (Pre-Dialysis) 194/135 mmHg BP Sitting (Post-Dialysis) 187/111 mmHg Concurrent Access: falseAV Fistula Upper Arm (Left) Arterial BP Standing (Pre-Dialysis) 190/125 mmHg BP Standing (P ost-Dialysis) 186/95 mmHg Sitting Heart Rate Pre-Dialysis 69 BPM Sitting Heart Rate Post-Dialysis 69 BPM Standing Heart Rate Pre-Dialysis 71 BPM Standing Heart Rate Post-Dialysis 72 BPM Temperature Pre-Dialysis 98.1 degF Temperature Post -Dialysis 97.9 degF February 21, 2023 In-Center Hemodialysis Treatment [id number]:05:00.000Z 7590-75-95B03:14:53.000Z BP Sitting (Pre-Dialysis) 199/136 mmHg BP Sitting (Post-Dialysis) 171/104 mmHg Concurrent Access: falseAV Fistula Upper Arm (Left) Arterial BP Standing (Pre-Dialysis) 202/128 mmHg BP Standing (P ost-Dialysis) 172/111 mmHg Sitting Heart Rate Pre-Dialysis 72 BPM Sitting Heart Rate Post-Dialysis 66 BPM Standing Heart Rate Pre-Dialysis 71 BPM Standing Heart Rate Post-Dialysis 65 BPM Temperature Pre-Dialysis 97.2 degF Temperature Post -Dialysis 98.6 degF February 17, 2023 In-Center Hemodialysis Treatment 1817-81-50W12:05:00.000Z 8968-11-64O81:14:16.000Z BP Sitting (Pre-Dialysis) 206/140 mmHg BP Sitting (Post-Dialysis) 177/104 mmHg Concurrent Access: falseAV Fistula Upper Arm (Left) Arterial BP Standing (Pre-Dialysis) 197/135 mmHg BP Standing (P ost-Dialysis) 176/117 mmHg Sitting Heart Rate Pre-Dialysis 77 BPM Sitting Heart Rate Post-Dialysis 75 BPM Standing Heart Rate Pre-Dialysis 77 BPM Standing Heart Rate Post-Dialysis 81 BPM Temperature Pre-Dialysis 98.2 degF Temperature Post -Dialysis 98.1 degF February 14, 2023 In-Center Hemodialysis Treatment [id number]:10:00.000Z 1065-37-72U97:17:24.000Z BP Sitting (Pre-Dialysis) 204/134 mmHg BP Sitting (Post-Dialysis) 186/144 mmHg Concurrent Access: falseAV Fistula Upper Arm (Left) Arterial BP Standing (Pre-Dialysis) 218/144 mmHg BP Standing (P ost-Dialysis) 206/133 mmHg Sitting Heart Rate Pre-Dialysis 87 BPM Sitting Heart Rate Post-Dialysis 73 BPM Standing Heart Rate Pre-Dialysis 86 BPM Standing Heart Rate Post-Dialysis 72 BPM Temperature Pre-Dialysis 98.2 degF Temperature Post -Dialysis 98.6 degF February 12, 2023 In-Center Hemodialysis Treatment 5596-23-89G96:04:30.000Z 1422-18-58E47:14:30.000Z BP Sitting (Pre-Dialysis) 201/138 mmHg BP Sitting (Post-Dialysis) 196/123 mmHg Concurrent Access: falseAV Fistula Upper Arm (Left) Arterial BP Standing (Pre-Dialysis) 200/138 mmHg Sitti ng Heart Rate Post-Dialysis 66 BPM Sitting Heart Rate Pre-Dialysis 81 BPM Temperatu re Post-Dialysis 98.5 degF Standing Heart Rate Pre-Dialysis 82 BPM Temperature Pre-Dialysis 97.6 degF February 10, 2023 In-Center Hemodialysis Treatment [id number]:05:00.000Z 9084-45-59M60:12:08.000Z BP Sitting (Pre-Dialysis) 193/119 mmHg BP Sitting (Post-Dialysis) 180/96 mmHg Concurrent Access: falseAV Fistula Upper Arm (Left) Arterial BP Standing (Pre-Dialysis) 196/122 mmHg BP Standing (P ost-Dialysis) 169/108 mmHg Sitting Heart Rate Pre-Dialysis 79 BPM Sitting Heart Rate Post-Dialysis 69 BPM Standing Heart Rate Pre-Dialysis 75 BPM Standing Heart Rate Post-Dialysis 72 BPM Temperature Pre-Dialysis 98.1 degF Temperature Post -Dialysis 98.3 degF February 07, 2023 In-Center Hemodialysis Treatment [id number]:02:00.000Z 5376-38-34Z84:05:10.000Z BP Sitting (Pre-Dialysis) 181/129 mmHg BP Sitting (Post-Dialysis) 176/114 mmHg Concurrent Access: falseAV Fistula Upper Arm (Left) Arterial Sitting Heart Rate Pre-Dialysis 85 BPM BP Standing (Post-Dialysis) 162/103 mmHg Temperature Pre-Dialysis 98.5 degF Sitting Heart Ra te Post-Dialysis 72 BPM Standing Heart R ate Post-Dialysis 75 BPM Temperature Post-Dialysis 98 .1 degF February 05, 2023 In-Center Hemodialysis Treatment [id number]:04:38.000Z 1351-86-92M99:04:38.000Z BP Sitting (Pre-Dialysis) 185/121 mmHg BP Sitting (Post-Dialysis) 143/83 mmHg Concurrent Access: falseAV Fistula Upper Arm (Left) Arterial BP Standing (Pre-Dialysis) 192/128 mmHg BP Standing (P ost-Dialysis) 154/91 mmHg Sitting Heart Rate Pre-Dialysis 76 BPM Sitting Heart Rate Post-Dialysis 70 BPM Standing Heart Rate Pre-Dialysis 80 BPM Standing Heart Rate Post-Dialysis 69 BPM Temperature Pre-Dialysis 98.3 degF Temperature Post -Dialysis 98.1 degF February 03, 2023 In-Center Hemodialysis Treatment 4009-35-83K25:07:00.000Z 1454-11-94N46:44:47.000Z BP Sitting (Pre-Dialysis) 196/123 mmHg BP Sitting (Post-Dialysis) 175/87 mmHg Concurrent Access: falseAV Fistula Upper Arm (Left) Arterial BP Standing (Pre-Dialysis) 209/131 mmHg BP Standing (P ost-Dialysis) 161/113 mmHg Sitting Heart Rate Pre-Dialysis 84 BPM Sitting Heart Rate Post-Dialysis 75 BPM Standing Heart Rate Pre-Dialysis 85 BPM Standing Heart Rate Post-Dialysis 76 BPM Temperature Pre-Dialysis 98.3 degF Temperature Post -Dialysis 97.7 degF January 31, 2023 In-Center Hemodialysis Treatment [id number]:09:43.000Z 0659-55-42B40:07:13.000Z BP Sitting (Pre-Dialysis) 201/113 mmHg BP Sitting (Post-Dialysis) 155/75 mmHg Concurrent Access: falseAV Fistula Upper Arm (Left) Arterial BP Standing (Pre-Dialysis) 194/126 mmHg BP Standing (P ost-Dialysis) 164/109 mmHg Sitting Heart Rate Pre-Dialysis 82 BPM Sitting Heart Rate Post-Dialysis 78 BPM Standing Heart Rate Pre-Dialysis 84 BPM Standing Heart Rate Post-Dialysis 84 BPM Temperature Pre-Dialysis 98.1 degF Temperature Post -Dialysis 98.2 degF January 29, 2023 In-Center Hemodialysis Treatment [id number]:00:21.000Z 2228-25-27H73:02:01.000Z BP Sitting (Pre-Dialysis) 190/126 mmHg BP Sitting (Post-Dialysis) 150/86 mmHg Concurrent Access: falseAV Fistula Upper Arm (Left) Arterial BP Standing (Pre-Dialysis) 181/121 mmHg BP Standing (P ost-Dialysis) 165/105 mmHg Sitting Heart Rate Pre-Dialysis 81 BPM Sitting Heart Rate Post-Dialysis 74 BPM Standing Heart Rate Pre-Dialysis 81 BPM Standing Heart Rate Post-Dialysis 81 BPM Temperature Pre-Dialysis 98.4 degF Temperature Post -Dialysis 98.3 degF January 27, 2023 In-Center Hemodialysis Treatment [id number]:03:00.000Z [id number]:08:01.000Z BP Sitting (Pre-Dialysis) 190/132 mmHg BP Sitting (Post-Dialysis) 152/85 mmHg Concurrent Access: falseAV Fistula Upper Arm (Left) Arterial BP Standing (Pre-Dialysis) 197/135 mmHg BP Standing (P ost-Dialysis) 158/87 mmHg Sitting Heart Rate Pre-Dialysis 86 BPM Sitting Heart Rate Post-Dialysis 76 BPM Standing Heart Rate Pre-Dialysis 88 BPM Standing Heart Rate Post-Dialysis 84 BPM Temperature Pre-Dialysis 98.7 degF Temperature Post -Dialysis 98.3 degF January 24, 2023 In-Center Hemodialysis Treatment [id number]:12:00.000Z [id number]:16:01.000Z BP Sitting (Pre-Dialysis) 191/126 mmHg BP Sitting (Post-Dialysis) 155/105 mmHg Concurrent Access: falseAV Fistula Upper Arm (Left) Arterial BP Standing (Pre-Dialysis) 182/109 mmHg BP Standing (P ost-Dialysis) 144/112 mmHg Sitting Heart Rate Pre-Dialysis 90 BPM Sitting Heart Rate Post-Dialysis 73 BPM Standing Heart Rate Pre-Dialysis 89 BPM Standing Heart Rate Post-Dialysis 72 BPM Temperature Pre-Dialysis 98.2 degF Temperature Post -Dialysis 97.9 degF January 22, 2023 In-Center Hemodialysis Treatment [id number]:06:52.000Z [id number]:07:42.000Z BP Sitting (Pre-Dialysis) 202/139 mmHg BP Sitting (Post-Dialysis) 139/73 mmHg Concurrent Access: falseAV Fistula Upper Arm (Left) Arterial BP Standing (Pre-Dialysis) 208/128 mmHg Sitti ng Heart Rate Post-Dialysis 76 BPM Sitting Heart Rate Pre-Dialysis 79 BPM Temperatu re Post-Dialysis 98.4 degF Standing Heart Rate Pre-Dialysis 77 BPM Temperature Pre-Dialysis 97.3 degF January 20, 2023 In-Center Hemodialysis Treatment [id number]:15:00.000Z 5969-52-30I96:18:54.000Z BP Sitting (Pre-Dialysis) 186/118 mmHg BP Sitting (Post-Dialysis) 153/74 mmHg Concurrent Access: falseAV Fistula Upper Arm (Left) Arterial BP Standing (Pre-Dialysis) 178/127 mmHg BP Standing (P ost-Dialysis) 172/105 mmHg Sitting Heart Rate Pre-Dialysis 73 BPM Sitting Heart Rate Post-Dialysis 69 BPM Standing Heart Rate Pre-Dialysis 75 BPM Standing Heart Rate Post-Dialysis 69 BPM Temperature Pre-Dialysis 98.3 degF Temperature Post -Dialysis 98.4 degF January 17, 2023 In-Center Hemodialysis Treatment [id number]:07:08.000Z [id number]:38:23.000Z BP Sitting (Pre-Dialysis) 167/110 mmHg BP Sitting (Post-Dialysis) 139/74 mmHg Concurrent Access: falseAV Fistula Upper Arm (Left) Arterial BP Standing (Pre-Dialysis) 173/117 mmHg Sitti ng Heart Rate Post-Dialysis 68 BPM Sitting Heart Rate Pre-Dialysis 69 BPM Temperatu re Post-Dialysis 98.5 degF Standing Heart Rate Pre-Dialysis 78 BPM Temperature Pre-Dialysis 98.2 degF January 15, 2023 In-Center Hemodialysis Treatment [id number]:07:45.000Z [id number]:08:10.000Z BP Sitting (Pre-Dialysis) 174/113 mmHg BP Sitting (Post-Dialysis) 146/76 mmHg Concurrent Access: falseAV Fistula Upper Arm (Left) Arterial BP Standing (Pre-Dialysis) 179/111 mmHg BP Standing (P ost-Dialysis) 148/91 mmHg Sitting Heart Rate Pre-Dialysis 78 BPM Sitting Heart Rate Post-Dialysis 69 BPM Standing Heart Rate Pre-Dialysis 79 BPM Standing Heart Rate Post-Dialysis 67 BPM Temperature Pre-Dialysis 98.7 degF Temperature Post -Dialysis 98.3 degF January 13, 2023 In-Center Hemodialysis Treatment [id number]:09:00.000Z [id number]:19:48.000Z BP Sitting (Pre-Dialysis) 178/113 mmHg BP Sitting (Post-Dialysis) 154/96 mmHg Concurrent Access: falseAV Fistula Upper Arm (Left) Arterial BP Standing (Pre-Dialysis) 167/105 mmHg BP Standing (P ost-Dialysis) 156/103 mmHg Sitting Heart Rate Pre-Dialysis 70 BPM Sitting Heart Rate Post-Dialysis 71 BPM Standing Heart Rate Pre-Dialysis 72 BPM Standing Heart Rate Post-Dialysis 75 BPM Temperature Pre-Dialysis 98.9 degF Temperature Post -Dialysis 98.7 degF January 10, 2023 In-Center Hemodialysis Treatment [id number]:15:00.000Z 8747-10-13I28:20:36.000Z BP Sitting (Pre-Dialysis) 179/106 mmHg BP Sitting (Post-Dialysis) 159/104 mmHg Concurrent Access: falseAV Fistula Upper Arm (Left) Arterial BP Standing (Pre-Dialysis) 188/113 mmHg Sitti ng Heart Rate Post-Dialysis 75 BPM Sitting Heart Rate Pre-Dialysis 75 BPM Temperatu re Post-Dialysis 98.6 degF Standing Heart Rate Pre-Dialysis 76 BPM Temperature Pre-Dialysis 99.1 degF January 08, 2023 In-Center Hemodialysis Treatment [id number]:04:49.000Z [id number]:05:14.000Z BP Sitting (Pre-Dialysis) 197/116 mmHg BP Sitting (Post-Dialysis) 138/79 mmHg Concurrent Access: falseAV Fistula Upper Arm (Left) Arterial BP Standing (Pre-Dialysis) 178/118 mmHg BP Standing (P ost-Dialysis) 155/87 mmHg Sitting Heart Rate Pre-Dialysis 78 BPM Sitting Heart Rate Post-Dialysis 72 BPM Standing Heart Rate Pre-Dialysis 79 BPM Standing Heart Rate Post-Dialysis 70 BPM Temperature Pre-Dialysis 98.2 degF Temperature Post -Dialysis 97.2 degF January 06, 2023 In-Center Hemodialysis Treatment [id number]:13:02.000Z [id number]:13:52.000Z BP Sitting (Pre-Dialysis) 179/110 mmHg BP Sitting (Post-Dialysis) 164/87 mmHg Concurrent Access: falseAV Fistula Upper Arm (Left) Arterial BP Standing (Pre-Dialysis) 177/108 mmHg BP Standing (P ost-Dialysis) 167/87 mmHg Sitting Heart Rate Pre-Dialysis 74 BPM Sitting Heart Rate Post-Dialysis 74 BPM Standing Heart Rate Pre-Dialysis 77 BPM Standing Heart Rate Post-Dialysis 75 BPM Temperature Pre-Dialysis 98.7 degF Temperature Post -Dialysis 98.6 degF January 03, 2023 In-Center Hemodialysis Treatment [id number]:59:00.000Z 8912-27-55H48:10:02.000Z BP Sitting (Pre-Dialysis) 178/119 mmHg BP Sitting (Post-Dialysis) 142/79 mmHg Concurrent Access: falseAV Fistula Upper Arm (Left) Arterial BP Standing (Pre-Dialysis) 171/113 mmHg Sitti ng Heart Rate Post-Dialysis 83 BPM Sitting Heart Rate Pre-Dialysis 78 BPM Temperatu re Post-Dialysis 97.6 degF Standing Heart Rate Pre-Dialysis 80 BPM Temperature Pre-Dialysis 96.7 degF January 01, 2023 In-Center Hemodialysis Treatment 4534-70-67A06:00:00.000Z 6742-30-92D36:05:32.000Z BP Sitting (Pre-Dialysis) 185/112 mmHg BP Sitting (Post-Dialysis) 145/85 mmHg Concurrent Access: falseAV Fistula Upper Arm (Left) Arterial BP Standing (Pre-Dialysis) 179/125 mmHg BP Standing (P ost-Dialysis) 144/91 mmHg Sitting Heart Rate Pre-Dialysis 76 BPM Sitting Heart Rate Post-Dialysis 72 BPM Standing Heart Rate Pre-Dialysis 79 BPM Standing Heart Rate Post-Dialysis 74 BPM Temperature Pre-Dialysis 98.3 degF Temperature Post -Dialysis 98.7 degF December 30, 2022 In-Center Hemodialysis Treatment [id number]:03:00.000Z 5832-69-00U29:07:26.000Z BP Sitting (Pre-Dialysis) 180/88 mmHg BP Sitting (Post-Dialysis) 158/89 mmHg Concurrent Access: falseAV Fistula Upper Arm (Left) Arterial BP Standing (Pre-Dialysis) 183/121 mmHg BP Standing (P ost-Dialysis) 162/101 mmHg Sitting Heart Rate Pre-Dialysis 75 BPM Sitting Heart Rate Post-Dialysis 73 BPM Standing Heart Rate Pre-Dialysis 78 BPM Standing Heart Rate Post-Dialysis 77 BPM Temperature Pre-Dialysis 98.4 degF Temperature Post -Dialysis 97.3 degF December 27, 2022 In-Center Hemodialysis Treatment 6966-49-10P92:55:12.000Z [id number]:55:37.000Z BP Sitting (Pre-Dialysis) 181/129 mmHg BP Sitting (Post-Dialysis) 148/82 mmHg Concurrent Access: falseAV Fistula Upper Arm (Left) Arterial BP Standing (Pre-Dialysis) 182/114 mmHg Sitti ng Heart Rate Post-Dialysis 72 BPM Sitting Heart Rate Pre-Dialysis 81 BPM Temperatu re Post-Dialysis 97.9 degF Standing Heart Rate Pre-Dialysis 82 BPM Temperature Pre-Dialysis 97.6 degF December 25, 2022 In-Center Hemodialysis Treatment [id number]:04:00.000Z 3918-12-83D57:13:57.000Z BP Sitting (Pre-Dialysis) 175/112 mmHg BP Sitting (Post-Dialysis) 143/74 mmHg Concurrent Access: falseAV Fistula Upper Arm (Left) Arterial BP Standing (Pre-Dialysis) 174/113 mmHg Sitti ng Heart Rate Post-Dialysis 73 BPM Sitting Heart Rate Pre-Dialysis 78 BPM Temperatu re Post-Dialysis 97.8 degF Standing Heart Rate Pre-Dialysis 78 BPM Temperature Pre-Dialysis 97.5 degF December 23, 2022 In-Center Hemodialysis Treatment [id number]:15:00.000Z 3996-59-54I30:15:00.000Z BP Sitting (Pre-Dialysis) 170/108 mmHg BP Sitting (Post-Dialysis) 142/79 mmHg Concurrent Access: falseAV Fistula Upper Arm (Left) Arterial BP Standing (Pre-Dialysis) 173/107 mmHg BP Standing (P ost-Dialysis) 143/87 mmHg Sitting Heart Rate Pre-Dialysis 74 BPM Sitting Heart Rate Post-Dialysis 79 BPM Standing Heart Rate Pre-Dialysis 75 BPM Standing Heart Rate Post-Dialysis 82 BPM Temperature Pre-Dialysis 98 degF Temperature Post -Dialysis 98.2 degF December 20, 2022 In-Center Hemodialysis Treatment 3553-00-28V01:02:06.000Z 9045-98-55M45:02:06.000Z BP Sitting (Pre-Dialysis) 175/111 mmHg BP Sitting (Post-Dialysis) 133/70 mmHg Concurrent Access: falseAV Fistula Upper Arm (Left) Arterial BP Standing (Pre-Dialysis) 179/118 mmHg BP Standing (P ost-Dialysis) 163/86 mmHg Sitting Heart Rate Pre-Dialysis 76 BPM Sitting Heart Rate Post-Dialysis 73 BPM Standing Heart Rate Pre-Dialysis 77 BPM Standing Heart Rate Post-Dialysis 76 BPM Temperature Pre-Dialysis 97.7 degF Temperature Post -Dialysis 98 degF December 18, 2022 In-Center Hemodialysis Treatment [id number]:03:06.000Z [id number]:03:31.000Z BP Sitting (Pre-Dialysis) 172/110 mmHg BP Sitting (Post-Dialysis) 130/64 mmHg Concurrent Access: falseAV Fistula Upper Arm (Left) Arterial BP Standing (Pre-Dialysis) 166/96 mmHg BP Standing (P ost-Dialysis) 137/80 mmHg Sitting Heart Rate Pre-Dialysis 77 BPM Sitting Heart Rate Post-Dialysis 72 BPM Standing Heart Rate Pre-Dialysis 79 BPM Standing Heart Rate Post-Dialysis 73 BPM Temperature Pre-Dialysis 98.4 degF Temperature Post -Dialysis 98.3 degF December 16, 2022 In-Center Hemodialysis Treatment [id number]:03:00.000Z 5682-72-22H65:09:34.000Z BP Sitting (Pre-Dialysis) 187/104 mmHg BP Sitting (Post-Dialysis) 133/72 mmHg Concurrent Access: falseAV Fistula Upper Arm (Left) Arterial BP Standing (Pre-Dialysis) 187/112 mmHg Sitti ng Heart Rate Post-Dialysis 77 BPM Sitting Heart Rate Pre-Dialysis 72 BPM Temperatu re Post-Dialysis 98.1 degF Standing Heart Rate Pre-Dialysis 73 BPM Temperature Pre-Dialysis 97.6 degF December 13, 2022 In-Center Hemodialysis Treatment [id number]:53:35.000Z [id number]:56:55.000Z BP Sitting (Pre-Dialysis) 184/124 mmHg BP Sitting (Post-Dialysis) 146/84 mmHg Concurrent Access: falseAV Fistula Upper Arm (Left) Arterial BP Standing (Pre-Dialysis) 170/117 mmHg BP Standing (P ost-Dialysis) 158/93 mmHg Sitting Heart Rate Pre-Dialysis 82 BPM Sitting Heart Rate Post-Dialysis 74 BPM Standing Heart Rate Pre-Dialysis 80 BPM Standing Heart Rate Post-Dialysis 76 BPM Temperature Pre-Dialysis 98.5 degF Temperature Post -Dialysis 97.9 degF December 11, 2022 In-Center Hemodialysis Treatment [id number]:01:52.000Z 7205-73-46H19:58:57.000Z BP Sitting (Pre-Dialysis) 188/130 mmHg BP Sitting (Post-Dialysis) 167/81 mmHg Concurrent Access: falseAV Fistula Upper Arm (Left) Arterial BP Standing (Pre-Dialysis) 193/121 mmHg BP Standing (P ost-Dialysis) 170/65 mmHg Sitting Heart Rate Pre-Dialysis 89 BPM Sitting Heart Rate Post-Dialysis 77 BPM Standing Heart Rate Pre-Dialysis 89 BPM Standing Heart Rate Post-Dialysis 70 BPM Temperature Pre-Dialysis 97.8 degF Temperature Post -Dialysis 98.7 degF December 09, 2022 In-Center Hemodialysis Treatment [id number]:05:00.000Z [id number]:06:00.000Z BP Sitting (Pre-Dialysis) 208/146 mmHg BP Sitting (Post-Dialysis) 167/94 mmHg Concurrent Access: falseAV Fistula Upper Arm (Left) Arterial BP Standing (Pre-Dialysis) 203/137 mmHg BP Standing (P ost-Dialysis) 176/99 mmHg Sitting Heart Rate Pre-Dialysis 94 BPM Sitting Heart Rate Post-Dialysis 87 BPM Standing Heart Rate Pre-Dialysis 98 BPM Standing Heart Rate Post-Dialysis 88 BPM Temperature Pre-Dialysis 98.4 degF Temperature Post -Dialysis 98.3 degF December 06, 2022 In-Center Hemodialysis Treatment 2554-43-12Y77:02:49.000Z 1678-54-64K85:05:43.000Z BP Sitting (Pre-Dialysis) 209/128 mmHg BP Sitting (Post-Dialysis) 172/96 mmHg Concurrent Access: falseAV Fistula Upper Arm (Left) Arterial BP Standing (Pre-Dialysis) 195/130 mmHg BP Standing (P ost-Dialysis) 174/107 mmHg Sitting Heart Rate Pre-Dialysis 85 BPM Sitting Heart Rate Post-Dialysis 85 BPM Standing Heart Rate Pre-Dialysis 89 BPM Standing Heart Rate Post-Dialysis 84 BPM Temperature Pre-Dialysis 98.4 degF Temperature Post -Dialysis 97.2 degF December 04, 2022 In-Center Hemodialysis Treatment 6965-54-76K79:00:00.000Z 8126-73-37I12:05:26.000Z BP Sitting (Pre-Dialysis) 193/125 mmHg BP Sitting (Post-Dialysis) 168/102 mmHg Concurrent Access: falseAV Fistula Upper Arm (Left) Arterial BP Standing (Pre-Dialysis) 192/121 mmHg BP Standing (P ost-Dialysis) 165/100 mmHg Sitting Heart Rate Pre-Dialysis 87 BPM Sitting Heart Rate Post-Dialysis 97 BPM Standing Heart Rate Pre-Dialysis 89 BPM Standing Heart Rate Post-Dialysis 94 BPM Temperature Pre-Dialysis 97.9 degF Temperature Post -Dialysis 98.8 degF December 02, 2022 In-Center Hemodialysis Treatment [id number]:03:48.000Z [id number]:14:00.000Z BP Sitting (Pre-Dialysis) 195/118 mmHg BP Sitting (Post-Dialysis) 153/85 mmHg Concurrent Access: falseAV Fistula Upper Arm (Left) Arterial BP Standing (Pre-Dialysis) 185/116 mmHg BP Standing (P ost-Dialysis) 170/91 mmHg Sitting Heart Rate Pre-Dialysis 85 BPM Sitting Heart Rate Post-Dialysis 83 BPM Standing Heart Rate Pre-Dialysis 85 BPM Standing Heart Rate Post-Dialysis 82 BPM Temperature Pre-Dialysis 98.4 degF Temperature Post -Dialysis 98.9 degF November 29, 2022 In-Center Hemodialysis Treatment 6750-12-00J87:00:00.000Z [id number]:06:00.000Z BP Sitting (Pre-Dialysis) 179/111 mmHg BP Sitting (Post-Dialysis) 153/77 mmHg Concurrent Access: falseAV Fistula Upper Arm (Left) Arterial BP Standing (Pre-Dialysis) 191/121 mmHg BP Standing (P ost-Dialysis) 153/86 mmHg Sitting Heart Rate Pre-Dialysis 78 BPM Sitting Heart Rate Post-Dialysis 80 BPM Standing Heart Rate Pre-Dialysis 81 BPM Standing Heart Rate Post-Dialysis 83 BPM Temperature Pre-Dialysis 99.3 degF Temperature Post -Dialysis 98.8 degF November 27, 2022 In-Center Hemodialysis Treatment 4948-86-04H57:06:18.000Z [id number]:05:00.000Z BP Sitting (Pre-Dialysis) 197/125 mmHg BP Sitting (Post-Dialysis) 147/81 mmHg Concurrent Access: falseAV Fistula Upper Arm (Left) Arterial BP Standing (Pre-Dialysis) 178/114 mmHg BP Standing (P ost-Dialysis) 161/90 mmHg Sitting Heart Rate Pre-Dialysis 82 BPM Sitting Heart Rate Post-Dialysis 75 BPM Standing Heart Rate Pre-Dialysis 81 BPM Standing Heart Rate Post-Dialysis 77 BPM Temperature Pre-Dialysis 98.2 degF Temperature Post -Dialysis 98 degF November 25, 2022 In-Center Hemodialysis Treatment [id number]:03:00.000Z [id number]:05:46.000Z BP Sitting (Pre-Dialysis) 181/115 mmHg BP Sitting (Post-Dialysis) 145/80 mmHg Concurrent Access: falseAV Fistula Upper Arm (Left) Arterial BP Standing (Pre-Dialysis) 183/116 mmHg Sitti ng Heart Rate Post-Dialysis 80 BPM Sitting Heart Rate Pre-Dialysis 78 BPM Temperatu re Post-Dialysis 97.6 degF Standing Heart Rate Pre-Dialysis 79 BPM Temperature Pre-Dialysis 98.7 degF November 22, 2022 In-Center Hemodialysis Treatment [id number]:16:39.000Z 4937-65-84P55:10:49.000Z BP Sitting (Pre-Dialysis) 140/69 mmHg BP Sitting (Post-Dialysis) 136/70 mmHg Concurrent Access: falseAV Fistula Upper Arm (Left) Arterial BP Standing (Pre-Dialysis) 164/106 mmHg Sitting Heart Rate Post-Dialysis 78 BPM Sitting Heart Rate Pre-Dialysis 76 BPM Standing Heart Rate Pre-Dialysis 79 BPM Temperature Pre-Dialysis 98.8 degF November 20, 2022 In-Center Hemodialysis Treatment [id number]:59:11.000Z 9801-88-70G36:00:01.000Z BP Sitting (Pre-Dialysis) 145/105 mmHg BP Sitting (Post-Dialysis) 135/62 mmHg Concurrent Access: falseAV Fistula Upper Arm (Left) Arterial BP Standing (Pre-Dialysis) 152/100 mmHg BP Standing (P ost-Dialysis) 150/83 mmHg Sitting Heart Rate Pre-Dialysis 102 BPM Sitting Heart Rate Post-Dialysis 77 BPM Standing Heart Rate Pre-Dialysis 79 BPM Standing Heart Rate Post-Dialysis 76 BPM Temperature Pre-Dialysis 98.2 degF Temperature Post -Dialysis 98 degF November 18, 2022 In-Center Hemodialysis Treatment 0707-99-08L98:04:00.000Z [id number]:04:13.000Z BP Sitting (Pre-Dialysis) 176/122 mmHg BP Sitting (Post-Dialysis) 154/94 mmHg Concurrent Access: falseAV Fistula Upper Arm (Left) Arterial BP Standing (Pre-Dialysis) 184/114 mmHg BP Standing (P ost-Dialysis) 145/86 mmHg Sitting Heart Rate Pre-Dialysis 85 BPM Sitting Heart Rate Post-Dialysis 75 BPM Standing Heart Rate Pre-Dialysis 84 BPM Standing Heart Rate Post-Dialysis 77 BPM Temperature Pre-Dialysis 98.7 degF Temperature Post -Dialysis 98.6 degF November 15, 2022 In-Center Hemodialysis Treatment [id number]:07:31.000Z 9171-73-44U53:07:06.000Z BP Sitting (Pre-Dialysis) 193/122 mmHg BP Sitting (Post-Dialysis) 163/94 mmHg Concurrent Access: falseAV Fistula Upper Arm (Left) Arterial BP Standing (Pre-Dialysis) 187/124 mmHg Sitti ng Heart Rate Post-Dialysis 77 BPM Sitting Heart Rate Pre-Dialysis 86 BPM Temperatu re Post-Dialysis 98.7 degF Standing Heart Rate Pre-Dialysis 87 BPM Temperature Pre-Dialysis 98.4 degF November 13, 2022 In-Center Hemodialysis Treatment 0517-93-17N49:05:00.000Z 6512-35-42O67:07:28.000Z BP Sitting (Pre-Dialysis) 198/122 mmHg BP Sitting (Post-Dialysis) 177/91 mmHg Concurrent Access: falseAV Fistula Upper Arm (Left) Arterial Sitting Heart Rate Pre-Dialysis 98 BPM BP Standing (Post-Dialysis) 169/97 mmHg Temperature Pre-Dialysis 97.8 degF Sitting Heart Ra te Post-Dialysis 79 BPM Standing Heart Rate Post-Yasmeen lysis 82 BPM Temperature Post-Dialysis 98 .3 degF November 11, 2022 In-Center Hemodialysis Treatment [id number]:01:00.000Z [id number]:02:48.000Z BP Sitting (Pre-Dialysis) 189/117 mmHg BP Sitting (Post-Dialysis) 152/98 mmHg Concurrent Access: falseAV Fistula Upper Arm (Left) Arterial Sitting Heart Rate Pre-Dialysis 85 BPM BP Standing (Post-Dialysis) 147/102 mmHg Temperature Pre-Dialysis 98.1 degF Sitting Heart Ra te Post-Dialysis 78 BPM Standing Heart R ate Post-Dialysis 83 BPM Temperature Post-Dialysis 98 .7 degF November 08, 2022 In-Center Hemodialysis Treatment [id number]:06:00.000Z [id number]:08:58.000Z BP Sitting (Pre-Dialysis) 176/118 mmHg BP Sitting (Post-Dialysis) 129/75 mmHg Concurrent Access: falseAV Fistula Upper Arm (Left) Arterial BP Standing (Pre-Dialysis) 206/119 mmHg Sitti ng Heart Rate Post-Dialysis 75 BPM Sitting Heart Rate Pre-Dialysis 87 BPM Temperatu re Post-Dialysis 97.6 degF Standing Heart Rate Pre-Dialysis 87 BPM Temperature Pre-Dialysis 97.9 degF November 06, 2022 In-Center Hemodialysis Treatment [id number]:59:00.000Z 0417-60-73P50:02:25.000Z BP Sitting (Pre-Dialysis) 173/112 mmHg BP Sitting (Post-Dialysis) 147/86 mmHg Concurrent Access: falseAV Fistula Upper Arm (Left) Arterial BP Standing (Pre-Dialysis) 177/113 mmHg BP Standing (P ost-Dialysis) 148/82 mmHg Sitting Heart Rate Pre-Dialysis 83 BPM Sitting Heart Rate Post-Dialysis 74 BPM Standing Heart Rate Pre-Dialysis 86 BPM Standing Heart Rate Post-Dialysis 80 BPM Temperature Pre-Dialysis 98.8 degF Temperature Post -Dialysis 98.3 degF November 04, 2022 In-Center Hemodialysis Treatment [id number]:03:03.000Z 6396-87-50W71:02:38.000Z BP Sitting (Pre-Dialysis) 173/114 mmHg BP Sitting (Post-Dialysis) 137/81 mmHg Concurrent Access: falseAV Fistula Upper Arm (Left) Arterial BP Standing (Pre-Dialysis) 174/109 mmHg Sitti ng Heart Rate Post-Dialysis 74 BPM Sitting Heart Rate Pre-Dialysis 81 BPM Temperatu re Post-Dialysis 98 degF Standing Heart Rate Pre-Dialysis 82 BPM Temperature Pre-Dialysis 98 degF November 01, 2022 In-Center Hemodialysis Treatment [id number]:06:00.000Z 4290-77-50P27:08:43.000Z BP Sitting (Pre-Dialysis) 176/115 mmHg BP Sitting (Post-Dialysis) 153/85 mmHg Concurrent Access: falseAV Fistula Upper Arm (Left) Arterial BP Standing (Pre-Dialysis) 183/116 mmHg BP Standing (P ost-Dialysis) 148/95 mmHg Sitting Heart Rate Pre-Dialysis 80 BPM Sitting Heart Rate Post-Dialysis 72 BPM Standing Heart Rate Pre-Dialysis 79 BPM Standing Heart Rate Post-Dialysis 73 BPM Temperature Pre-Dialysis 98.3 degF Temperature Post -Dialysis 97.7 degF October 30, 2022 In-Center Hemodialysis Treatment 1334-53-00D39:01:00.000Z [id number]:03:59.000Z BP Sitting (Pre-Dialysis) 178/121 mmHg BP Sitting (Post-Dialysis) 153/81 mmHg Concurrent Access: falseAV Fistula Upper Arm (Left) Arterial BP Standing (Pre-Dialysis) 184/111 mmHg Sitti ng Heart Rate Post-Dialysis 72 BPM Sitting Heart Rate Pre-Dialysis 84 BPM Temperatu re Post-Dialysis 97.9 degF Standing Heart Rate Pre-Dialysis 86 BPM Temperature Pre-Dialysis 98.7 degF October 28, 2022 In-Center Hemodialysis Treatment [id number]:04:00.000Z [id number]:05:06.000Z BP Sitting (Pre-Dialysis) 183/119 mmHg BP Sitting (Post-Dialysis) 147/77 mmHg Concurrent Access: falseAV Fistula Upper Arm (Left) Arterial BP Standing (Pre-Dialysis) 195/119 mmHg BP Standing (P ost-Dialysis) 138/90 mmHg Sitting Heart Rate Pre-Dialysis 82 BPM Sitting Heart Rate Post-Dialysis 77 BPM Standing Heart Rate Pre-Dialysis 81 BPM Standing Heart Rate Post-Dialysis 80 BPM Temperature Pre-Dialysis 98.5 degF Temperature Post -Dialysis 98.2 degF October 25, 2022 In-Center Hemodialysis Treatment [id number]:00:00.000Z [id number]:02:20.000Z BP Sitting (Pre-Dialysis) 200/124 mmHg BP Sitting (Post-Dialysis) 150/81 mmHg Concurrent Access: falseAV Fistula Upper Arm (Left) Arterial BP Standing (Pre-Dialysis) 205/130 mmHg BP Standing (P ost-Dialysis) 165/85 mmHg Sitting Heart Rate Pre-Dialysis 79 BPM Sitting Heart Rate Post-Dialysis 76 BPM Standing Heart Rate Pre-Dialysis 81 BPM Standing Heart Rate Post-Dialysis 75 BPM Temperature Pre-Dialysis 98.7 degF Temperature Post -Dialysis 98 degF October 23, 2022 In-Center Hemodialysis Treatment [id number]:02:00.000Z [id number]:03:41.000Z BP Sitting (Pre-Dialysis) 183/127 mmHg BP Sitting (Post-Dialysis) 178/96 mmHg Concurrent Access: falseAV Fistula Upper Arm (Left) Arterial BP Standing (Pre-Dialysis) 198/129 mmHg BP Standing (P ost-Dialysis) 177/117 mmHg Sitting Heart Rate Pre-Dialysis 81 BPM Sitting Heart Rate Post-Dialysis 70 BPM Standing Heart Rate Pre-Dialysis 81 BPM Standing Heart Rate Post-Dialysis 80 BPM Temperature Pre-Dialysis 98.3 degF Temperature Post -Dialysis 97.7 degF October 21, 2022 In-Center Hemodialysis Treatment [id number]:58:00.000Z 8380-15-56P35:59:56.000Z BP Sitting (Pre-Dialysis) 184/120 mmHg BP Sitting (Post-Dialysis) 147/89 mmHg Concurrent Access: falseAV Fistula Upper Arm (Left) Arterial BP Standing (Pre-Dialysis) 196/128 mmHg BP Standing (P ost-Dialysis) 154/92 mmHg Sitting Heart Rate Pre-Dialysis 92 BPM Sitting Heart Rate Post-Dialysis 71 BPM Standing Heart Rate Pre-Dialysis 96 BPM Standing Heart Rate Post-Dialysis 73 BPM Temperature Pre-Dialysis 98.3 degF Temperature Post -Dialysis 98.7 degF October 18, 2022 In-Center Hemodialysis Treatment [id number]:05:00.000Z 6028-30-62L61:03:46.000Z BP Sitting (Pre-Dialysis) 177/114 mmHg BP Sitting (Post-Dialysis) 158/87 mmHg Concurrent Access: falseAV Fistula Upper Arm (Left) Arterial BP Standing (Pre-Dialysis) 178/118 mmHg BP Standing (P ost-Dialysis) 157/90 mmHg Sitting Heart Rate Pre-Dialysis 83 BPM Sitting Heart Rate Post-Dialysis 79 BPM Standing Heart Rate Pre-Dialysis 85 BPM Standing Heart Rate Post-Dialysis 76 BPM Temperature Pre-Dialysis 98.3 degF Temperature Post -Dialysis 97.8 degF October 16, 2022 In-Center Hemodialysis Treatment [id number]:04:53.000Z [id number]:05:43.000Z BP Sitting (Pre-Dialysis) 179/114 mmHg BP Sitting (Post-Dialysis) 132/87 mmHg Concurrent Access: falseAV Fistula Upper Arm (Left) Arterial BP Standing (Pre-Dialysis) 195/119 mmHg BP Standing (P ost-Dialysis) 159/100 mmHg Sitting Heart Rate Pre-Dialysis 90 BPM Sitting Heart Rate Post-Dialysis 78 BPM Standing Heart Rate Pre-Dialysis 96 BPM Standing Heart Rate Post-Dialysis 79 BPM Temperature Pre-Dialysis 98.4 degF Temperature Post -Dialysis 98.3 degF October 14, 2022 In-Center Hemodialysis Treatment [id number]:08:00.000Z 8950-05-79L70:00:31.000Z BP Sitting (Pre-Dialysis) 188/118 mmHg BP Sitting (Post-Dialysis) 143/79 mmHg Concurrent Access: falseAV Fistula Upper Arm (Left) Arterial BP Standing (Pre-Dialysis) 192/120 mmHg BP Standing (P ost-Dialysis) 160/96 mmHg Sitting Heart Rate Pre-Dialysis 83 BPM Sitting Heart Rate Post-Dialysis 78 BPM Standing Heart Rate Pre-Dialysis 82 BPM Standing Heart Rate Post-Dialysis 80 BPM Temperature Pre-Dialysis 98.4 degF Temperature Post -Dialysis 98.3 degF October 11, 2022 In-Center Hemodialysis Treatment [id number]:57:25.000Z [id number]:58:15.000Z BP Sitting (Pre-Dialysis) 208/139 mmHg BP Sitting (Post-Dialysis) 167/102 mmHg Concurrent Access: falseAV Fistula Upper Arm (Left) Arterial BP Standing (Pre-Dialysis) 219/149 mmHg BP Standing (P ost-Dialysis) 170/102 mmHg Sitting Heart Rate Pre-Dialysis 97 BPM Sitting Heart Rate Post-Dialysis 75 BPM Standing Heart Rate Pre-Dialysis 90 BPM Standing Heart Rate Post-Dialysis 79 BPM Temperature Pre-Dialysis 98.3 degF Temperature Post -Dialysis 97.8 degF October 09, 2022 In-Center Hemodialysis Treatment [id number]:00:19.000Z [id number]:05:19.000Z BP Sitting (Pre-Dialysis) 210/131 mmHg BP Sitting (Post-Dialysis) 167/96 mmHg Concurrent Access: falseAV Fistula Upper Arm (Left) Arterial BP Standing (Pre-Dialysis) 208/128 mmHg BP Standing (P ost-Dialysis) 171/95 mmHg Sitting Heart Rate Pre-Dialysis 84 BPM Sitting Heart Rate Post-Dialysis 81 BPM Standing Heart Rate Pre-Dialysis 86 BPM Standing Heart Rate Post-Dialysis 78 BPM Temperature Pre-Dialysis 98.5 degF Temperature Post -Dialysis 98.7 degF October 07, 2022 In-Center Hemodialysis Treatment [id number]:59:51.000Z [id number]:59:51.000Z BP Sitting (Pre-Dialysis) 199/130 mmHg BP Sitting (Post-Dialysis) 175/94 mmHg Concurrent Access: falseAV Fistula Upper Arm (Left) Arterial BP Standing (Pre-Dialysis) 189/130 mmHg BP Standing (P ost-Dialysis) 176/99 mmHg Sitting Heart Rate Pre-Dialysis 81 BPM Sitting Heart Rate Post-Dialysis 79 BPM Standing Heart Rate Pre-Dialysis 84 BPM Standing Heart Rate Post-Dialysis 77 BPM Temperature Pre-Dialysis 98.2 degF Temperature Post -Dialysis 97.8 degF October 04, 2022 In-Center Hemodialysis Treatment [id number]:05:24.000Z [id number]:06:14.000Z BP Sitting (Pre-Dialysis) 187/117 mmHg BP Sitting (Post-Dialysis) 146/69 mmHg Concurrent Access: falseAV Fistula Upper Arm (Left) Arterial Sitting Heart Rate Pre-Dialysis 82 BPM BP Standi ng (Post-Dialysis) 170/94 mmHg Temperature Pre-Dialysis 98 degF Sitting Heart Ra te Post-Dialysis 78 BPM Standing Heart Rate Post-Yasmeen lysis 81 BPM Temperature Post-Dialysis 98 .7 degF October 02, 2022 In-Center Hemodialysis Treatment [id number]:02:00.000Z 9023-28-65S57:03:13.000Z BP Sitting (Pre-Dialysis) 174/116 mmHg BP Sitting (Post-Dialysis) 144/78 mmHg Concurrent Access: falseAV Fistula Upper Arm (Left) Arterial BP Standing (Pre-Dialysis) 171/109 mmHg BP Standing (P ost-Dialysis) 148/87 mmHg Sitting Heart Rate Pre-Dialysis 83 BPM Sitting Heart Rate Post-Dialysis 78 BPM Standing Heart Rate Pre-Dialysis 81 BPM Standing Heart Rate Post-Dialysis 78 BPM Temperature Pre-Dialysis 97.8 degF Temperature Post -Dialysis 97.6 degF October 01, 2022 Additional Day Of Dialysis Treatment [id number]:00:00.000Z [id number]:01:10.000Z BP Sitting (Pre-Dialysis) 195/124 mmHg BP Sitting (Post-Dialysis) 154/90 mmHg Concurrent Access: falseAV Fistula Upper Arm (Left) Arterial Sitting Heart Rate Pre-Dialysis 73 BPM BP Standi ng (Post-Dialysis) 175/101 mmHg Temperature Pre-Dialysis 98 degF Sitting Heart Ra te Post-Dialysis 81 BPM Standing Heart Rate Post-Yasmeen lysis 83 BPM Temperature Post-Dialysis 97 .8 degF September 30, 2022 In-Center Hemodialysis Treatment [id number]:00:39.000Z [id number]:39:49.000Z BP Sitting (Pre-Dialysis) 219/133 mmHg BP Sitting (Post-Dialysis) 173/107 mmHg Concurrent Access: falseAV Fistula Upper Arm (Left) Arterial BP Standing (Pre-Dialysis) 224/129 mmHg BP Standing (P ost-Dialysis) 168/101 mmHg Sitting Heart Rate Pre-Dialysis 81 BPM Sitting Heart Rate Post-Dialysis 72 BPM Standing Heart Rate Pre-Dialysis 79 BPM Standing Heart Rate Post-Dialysis 74 BPM Temperature Pre-Dialysis 98.2 degF Temperature Post -Dialysis 98 degF September 27, 2022 In-Center Hemodialysis Treatment [id number]:59:06.000Z [id number]:58:41.000Z BP Sitting (Pre-Dialysis) 194/114 mmHg BP Sitting (Post-Dialysis) 146/81 mmHg Concurrent Access: falseAV Fistula Upper Arm (Left) Arterial BP Standing (Pre-Dialysis) 174/118 mmHg BP Standing (P ost-Dialysis) 171/99 mmHg Sitting Heart Rate Pre-Dialysis 74 BPM Sitting Heart Rate Post-Dialysis 71 BPM Standing Heart Rate Pre-Dialysis 74 BPM Standing Heart Rate Post-Dialysis 81 BPM Temperature Pre-Dialysis 97.8 degF Temperature Post -Dialysis 97.6 degF September 25, 2022 In-Center Hemodialysis Treatment 5728-65-15Z34:00:00.000Z [id number]:05:05.000Z BP Sitting (Pre-Dialysis) 182/108 mmHg BP Sitting (Post-Dialysis) 160/84 mmHg Concurrent Access: falseAV Fistula Upper Arm (Left) Arterial BP Standing (Pre-Dialysis) 166/127 mmHg BP Standing (P ost-Dialysis) 183/99 mmHg Sitting Heart Rate Pre-Dialysis 72 BPM Sitting Heart Rate Post-Dialysis 78 BPM Standing Heart Rate Pre-Dialysis 75 BPM Standing Heart Rate Post-Dialysis 81 BPM Temperature Pre-Dialysis 98.4 degF Temperature Post -Dialysis 98.6 degF September 23, 2022 In-Center Hemodialysis Treatment 5424-05-78G24:00:00.000Z [id number]:02:19.000Z BP Sitting (Pre-Dialysis) 199/129 mmHg BP Sitting (Post-Dialysis) 153/82 mmHg Concurrent Access: falseAV Fistula Upper Arm (Left) Arterial BP Standing (Pre-Dialysis) 183/119 mmHg Sitti ng Heart Rate Post-Dialysis 81 BPM Sitting Heart Rate Pre-Dialysis 76 BPM Temperatu re Post-Dialysis 98.7 degF Standing Heart Rate Pre-Dialysis 72 BPM Temperature Pre-Dialysis 98.3 degF September 20, 2022 In-Center Hemodialysis Treatment [id number]:21:06.000Z 6660-45-40F33:21:31.000Z BP Sitting (Pre-Dialysis) 190/123 mmHg BP Sitting (Post-Dialysis) 173/80 mmHg Concurrent Access: falseAV Fistula Upper Arm (Left) Arterial BP Standing (Pre-Dialysis) 196/125 mmHg BP Standing (P ost-Dialysis) 157/72 mmHg Sitting Heart Rate Pre-Dialysis 77 BPM Sitting Heart Rate Post-Dialysis 77 BPM Standing Heart Rate Pre-Dialysis 76 BPM Standing Heart Rate Post-Dialysis 75 BPM Temperature Pre-Dialysis 97.3 degF Temperature Post -Dialysis 97.3 degF September 19, 2022 Additional Day Of Dialysis Treatment [id number]:00:00.000Z [id number]:09:41.000Z BP Sitting (Pre-Dialysis) 188/120 mmHg BP Sitting (Post-Dialysis) 164/90 mmHg Concurrent Access: falseAV Fistula Upper Arm (Left) Arterial BP Standing (Pre-Dialysis) 170/113 mmHg BP Standing (P ost-Dialysis) 154/76 mmHg Sitting Heart Rate Pre-Dialysis 80 BPM Sitting Heart Rate Post-Dialysis 63 BPM Standing Heart Rate Pre-Dialysis 81 BPM Standing Heart Rate Post-Dialysis 79 BPM Temperature Pre-Dialysis 97.7 degF Temperature Post -Dialysis 98.3 degF September 18, 2022 In-Center Hemodialysis Treatment 9924-07-60Z73:53:00.000Z 5078-57-30Q86:56:32.000Z BP Sitting (Pre-Dialysis) 200/119 mmHg BP Sitting (Post-Dialysis) 170/91 mmHg Concurrent Access: falseAV Fistula Upper Arm (Left) Arterial BP Standing (Pre-Dialysis) 204/122 mmHg Sitti ng Heart Rate Post-Dialysis 79 BPM Sitting Heart Rate Pre-Dialysis 86 BPM Temperatu re Post-Dialysis 98.1 degF Standing Heart Rate Pre-Dialysis 87 BPM Temperature Pre-Dialysis 98.2 degF September 16, 2022 In-Center Hemodialysis Treatment [id number]:59:00.000Z 7893-83-91G33:01:23.000Z BP Sitting (Pre-Dialysis) 185/114 mmHg BP Sitting (Post-Dialysis) 178/86 mmHg Concurrent Access: falseAV Fistula Upper Arm (Left) Arterial BP Standing (Pre-Dialysis) 192/118 mmHg BP Standing (P ost-Dialysis) 174/87 mmHg Sitting Heart Rate Pre-Dialysis 76 BPM Sitting Heart Rate Post-Dialysis 79 BPM Standing Heart Rate Pre-Dialysis 77 BPM Standing Heart Rate Post-Dialysis 80 BPM Temperature Pre-Dialysis 97.9 degF Temperature Post -Dialysis 97.6 degF September 13, 2022 In-Center Hemodialysis Treatment [id number]:02:01.000Z 9641-97-23O25:03:16.000Z BP Sitting (Pre-Dialysis) 189/116 mmHg BP Sitting (Post-Dialysis) 176/94 mmHg Concurrent Access: falseAV Fistula Upper Arm (Left) Arterial BP Standing (Pre-Dialysis) 183/113 mmHg Sitti ng Heart Rate Post-Dialysis 81 BPM Sitting Heart Rate Pre-Dialysis 73 BPM Temperatu re Post-Dialysis 97.5 degF Standing Heart Rate Pre-Dialysis 75 BPM Temperature Pre-Dialysis 98 degF September 11, 2022 In-Center Hemodialysis Treatment [id number]:03:55.000Z 8553-61-02D44:03:30.000Z BP Sitting (Pre-Dialysis) 90/116 mmHg BP Sitting (Post-Dialysis) 148/90 mmHg Concurrent Access: falseAV Fistula Upper Arm (Left) Arterial BP Standing (Pre-Dialysis) 169/100 mmHg Sitti ng Heart Rate Post-Dialysis 74 BPM Sitting Heart Rate Pre-Dialysis 73 BPM Temperatu re Post-Dialysis 97.6 degF Standing Heart Rate Pre-Dialysis 74 BPM Temperature Pre-Dialysis 98.6 degF September 09, 2022 In-Center Hemodialysis Treatment [id number]:03:00.000Z 6534-53-85R49:04:59.000Z BP Sitting (Pre-Dialysis) 193/123 mmHg BP Sitting (Post-Dialysis) 156/84 mmHg Concurrent Access: falseAV Fistula Upper Arm (Left) Arterial BP Standing (Pre-Dialysis) 177/113 mmHg BP Standing (P ost-Dialysis) 163/89 mmHg Sitting Heart Rate Pre-Dialysis 74 BPM Sitting Heart Rate Post-Dialysis 75 BPM Standing Heart Rate Pre-Dialysis 75 BPM Standing Heart Rate Post-Dialysis 81 BPM Temperature Pre-Dialysis 97.7 degF Temperature Post -Dialysis 98.7 degF September 06, 2022 In-Center Hemodialysis Treatment [id number]:00:32.000Z 3792-75-92C08:05:07.000Z BP Sitting (Pre-Dialysis) 187/106 mmHg BP Sitting (Post-Dialysis) 140/76 mmHg Concurrent Access: falseAV Fistula Upper Arm (Left) Arterial Sitting Heart Rate Pre-Dialysis 78 BPM BP Standing (Post-Dialysis) 146/94 mmHg Temperature Pre-Dialysis 97.8 degF Sitting Heart Ra te Post-Dialysis 73 BPM Standing Heart Rate Post-Yasmeen lysis 72 BPM Temperature Post-Dialysis 98 .4 degF September 04, 2022 In-Center Hemodialysis Treatment [id number]:03:00.000Z 5959-76-83S12:03:30.000Z BP Sitting (Pre-Dialysis) 183/120 mmHg BP Sitting (Post-Dialysis) 165/92 mmHg Concurrent Access: falseAV Fistula Upper Arm (Left) Arterial BP Standing (Pre-Dialysis) 179/118 mmHg BP Standing (P ost-Dialysis) 152/91 mmHg Sitting Heart Rate Pre-Dialysis 83 BPM Sitting Heart Rate Post-Dialysis 76 BPM Standing Heart Rate Pre-Dialysis 81 BPM Standing Heart Rate Post-Dialysis 73 BPM Temperature Pre-Dialysis 97.6 degF Temperature Post -Dialysis 98.8 degF September 02, 2022 In-Center Hemodialysis Treatment [id number]:57:00.000Z 7120-45-05X80:58:48.000Z BP Sitting (Pre-Dialysis) 194/127 mmHg BP Sitting (Post-Dialysis) 155/87 mmHg Concurrent Access: falseAV Fistula Upper Arm (Left) Arterial BP Standing (Pre-Dialysis) 198/126 mmHg BP Standing (P ost-Dialysis) 163/88 mmHg Sitting Heart Rate Pre-Dialysis 78 BPM Sitting Heart Rate Post-Dialysis 72 BPM Standing Heart Rate Pre-Dialysis 82 BPM Standing Heart Rate Post-Dialysis 75 BPM Temperature Pre-Dialysis 98 degF Temperature Post -Dialysis 98 degF August 30, 2022 In-Center Hemodialysis Treatment [id number]:04:29.000Z [id number]:11:34.000Z BP Sitting (Pre-Dialysis) 189/125 mmHg BP Sitting (Post-Dialysis) 166/98 mmHg Concurrent Access: falseAV Fistula Upper Arm (Left) Arterial BP Standing (Pre-Dialysis) 198/139 mmHg BP Standing (P ost-Dialysis) 185/98 mmHg Sitting Heart Rate Pre-Dialysis 83 BPM Sitting Heart Rate Post-Dialysis 67 BPM Standing Heart Rate Pre-Dialysis 86 BPM Standing Heart Rate Post-Dialysis 70 BPM Temperature Pre-Dialysis 98.2 degF Temperature Post -Dialysis 98.5 degF August 28, 2022 In-Center Hemodialysis Treatment 6720-80-04S87:40:50.000Z 2651-63-36S12:41:15.000Z BP Sitting (Pre-Dialysis) 227/153 mmHg BP Sitting (Post-Dialysis) 159/103 mmHg Concurrent Access: falseAV Fistula Upper Arm (Left) Arterial BP Standing (Pre-Dialysis) 217/141 mmHg BP Standing (P ost-Dialysis) 177/110 mmHg Sitting Heart Rate Pre-Dialysis 94 BPM Sitting Heart Rate Post-Dialysis 68 BPM Standing Heart Rate Pre-Dialysis 97 BPM Standing Heart Rate Post-Dialysis 69 BPM Temperature Pre-Dialysis 98.4 degF Temperature Post -Dialysis 97.3 degF August 26, 2022 In-Center Hemodialysis Treatment [id number]:55:00.000Z [id number]:21:07.000Z BP Sitting (Pre-Dialysis) 212/129 mmHg BP Sitting (Post-Dialysis) 174/105 mmHg Concurrent Access: falseAV Fistula Upper Arm (Left) Arterial BP Standing (Pre-Dialysis) 209/138 mmHg BP Standing (P ost-Dialysis) 186/104 mmHg Sitting Heart Rate Pre-Dialysis 87 BPM Sitting Heart Rate Post-Dialysis 81 BPM Standing Heart Rate Pre-Dialysis 89 BPM Standing Heart Rate Post-Dialysis 80 BPM Temperature Pre-Dialysis 98 degF Temperature Post -Dialysis 97.9 degF August 23, 2022 In-Center Hemodialysis Treatment 4400-63-90U82:05:00.000Z 4779-58-09A94:09:05.000Z BP Sitting (Pre-Dialysis) 203/128 mmHg BP Sitting (Post-Dialysis) 155/92 mmHg Concurrent Access: falseAV Fistula Upper Arm (Left) Arterial BP Standing (Pre-Dialysis) 200/131 mmHg Sitti ng Heart Rate Post-Dialysis 75 BPM Sitting Heart Rate Pre-Dialysis 77 BPM Temperatu re Post-Dialysis 98.4 degF Standing Heart Rate Pre-Dialysis 79 BPM Temperature Pre-Dialysis 98.3 degF August 21, 2022 In-Center Hemodialysis Treatment [id number]:12:18.000Z 7007-12-11I48:12:43.000Z BP Sitting (Pre-Dialysis) 207/136 mmHg BP Sitting (Post-Dialysis) 161/77 mmHg Concurrent Access: falseAV Fistula Upper Arm (Left) Arterial BP Standing (Pre-Dialysis) 205/128 mmHg BP Standing (P ost-Dialysis) 163/97 mmHg Sitting Heart Rate Pre-Dialysis 77 BPM Sitting Heart Rate Post-Dialysis 73 BPM Standing Heart Rate Pre-Dialysis 77 BPM Standing Heart Rate Post-Dialysis 79 BPM Temperature Pre-Dialysis 97.9 degF Temperature Post -Dialysis 98.4 degF August 19, 2022 In-Center Hemodialysis Treatment [id number]:58:26.000Z 9512-99-41L14:58:51.000Z BP Sitting (Pre-Dialysis) 182/118 mmHg BP Sitting (Post-Dialysis) 153/85 mmHg Concurrent Access: falseAV Fistula Upper Arm (Left) Arterial BP Standing (Pre-Dialysis) 177/118 mmHg Sitti ng Heart Rate Post-Dialysis 74 BPM Sitting Heart Rate Pre-Dialysis 81 BPM Temperatu re Post-Dialysis 98 degF Standing Heart Rate Pre-Dialysis 82 BPM Temperature Pre-Dialysis 98.2 degF August 16, 2022 In-Center Hemodialysis Treatment 7439-01-20T26:18:00.000Z 4975-54-12V99:26:16.000Z BP Sitting (Pre-Dialysis) 184/121 mmHg BP Sitting (Post-Dialysis) 143/83 mmHg Concurrent Access: falseAV Fistula Upper Arm (Left) Arterial BP Standing (Pre-Dialysis) 186/113 mmHg Sitting Heart Rate Post-Dialysis 74 BPM Sitting Heart Rate Pre-Dialysis 80 BPM Standing Heart Rate Pre-Dialysis 82 BPM Temperature Pre-Dialysis 97.9 degF August 14, 2022 In-Center Hemodialysis Treatment [id number]:02:28.000Z 9667-35-09P41:02:53.000Z BP Sitting (Pre-Dialysis) 187/115 mmHg BP Sitting (Post-Dialysis) 151/56 mmHg Concurrent Access: falseAV Fistula Upper Arm (Left) Arterial BP Standing (Pre-Dialysis) 183/113 mmHg Sitti ng Heart Rate Post-Dialysis 73 BPM Sitting Heart Rate Pre-Dialysis 78 BPM Temperatu re Post-Dialysis 98.4 degF Standing Heart Rate Pre-Dialysis 80 BPM Temperature Pre-Dialysis 98 degF August 12, 2022 In-Center Hemodialysis Treatment 4031-94-22X08:04:54.000Z 9131-50-38K54:04:04.000Z BP Sitting (Pre-Dialysis) 182/120 mmHg BP Sitting (Post-Dialysis) 150/81 mmHg Concurrent Access: falseAV Fistula Upper Arm (Left) Arterial BP Standing (Pre-Dialysis) 197/112 mmHg BP Standing (P ost-Dialysis) 153/78 mmHg Sitting Heart Rate Pre-Dialysis 72 BPM Sitting Heart Rate Post-Dialysis 73 BPM Standing Heart Rate Pre-Dialysis 75 BPM Standing Heart Rate Post-Dialysis 73 BPM Temperature Pre-Dialysis 98.5 degF Temperature Post -Dialysis 98.5 degF August 09, 2022 In-Center Hemodialysis Treatment 4893-54-52Y49:56:00.000Z [id number]:57:51.000Z BP Sitting (Pre-Dialysis) 184/111 mmHg BP Sitting (Post-Dialysis) 135/99 mmHg Concurrent Access: falseAV Fistula Upper Arm (Left) Arterial BP Standing (Pre-Dialysis) 168/115 mmHg BP Standing (P ost-Dialysis) 154/78 mmHg Sitting Heart Rate Pre-Dialysis 79 BPM Sitting Heart Rate Post-Dialysis 74 BPM Standing Heart Rate Pre-Dialysis 85 BPM Standing Heart Rate Post-Dialysis 76 BPM Temperature Pre-Dialysis 97.8 degF Temperature Post -Dialysis 97.6 degF August 07, 2022 In-Center Hemodialysis Treatment 2319-58-12G54:15:34.000Z 6248-70-80Z10:15:34.000Z BP Sitting (Pre-Dialysis) 182/120 mmHg BP Sitting (Post-Dialysis) 149/76 mmHg Concurrent Access: falseAV Fistula Upper Arm (Left) Arterial BP Standing (Pre-Dialysis) 184/114 mmHg BP Standing (P ost-Dialysis) 148/79 mmHg Sitting Heart Rate Pre-Dialysis 79 BPM Sitting Heart Rate Post-Dialysis 73 BPM Standing Heart Rate Pre-Dialysis 81 BPM Standing Heart Rate Post-Dialysis 76 BPM Temperature Pre-Dialysis 98.2 degF Temperature Post -Dialysis 98.4 degF August 05, 2022 In-Center Hemodialysis Treatment 9316-57-37Q82:10:00.000Z 0849-63-70H47:11:53.000Z BP Sitting (Pre-Dialysis) 198/123 mmHg BP Sitting (Post-Dialysis) 160/83 mmHg Concurrent Access: falseAV Fistula Upper Arm (Left) Arterial BP Standing (Pre-Dialysis) 203/126 mmHg BP Standing (P ost-Dialysis) 140/82 mmHg Sitting Heart Rate Pre-Dialysis 77 BPM Sitting Heart Rate Post-Dialysis 73 BPM Standing Heart Rate Pre-Dialysis 76 BPM Standing Heart Rate Post-Dialysis 73 BPM Temperature Pre-Dialysis 96.8 degF Temperature Post -Dialysis 97 degF August 02, 2022 In-Center Hemodialysis Treatment [id number]:52:00.000Z [id number]:54:57.000Z BP Sitting (Pre-Dialysis) 198/116 mmHg BP Sitting (Post-Dialysis) 141/76 mmHg Concurrent Access: falseAV Fistula Upper Arm (Left) Arterial BP Standing (Pre-Dialysis) 177/114 mmHg BP Standing (P ost-Dialysis) 177/74 mmHg Sitting Heart Rate Pre-Dialysis 79 BPM Sitting Heart Rate Post-Dialysis 68 BPM Standing Heart Rate Pre-Dialysis 85 BPM Standing Heart Rate Post-Dialysis 70 BPM Temperature Pre-Dialysis 98.1 degF Temperature Post -Dialysis 97.6 degF July 31, 2022 In-Center Hemodialysis Treatment [id number]:09:35.000Z 5307-87-28Z71:07:55.000Z BP Sitting (Pre-Dialysis) 178/114 mmHg BP Sitting (Post-Dialysis) 141/78 mmHg Concurrent Access: falseAV Fistula Upper Arm (Left) Arterial BP Standing (Pre-Dialysis) 177/108 mmHg BP Standing (P ost-Dialysis) 135/81 mmHg Sitting Heart Rate Pre-Dialysis 81 BPM Sitting Heart Rate Post-Dialysis 69 BPM Standing Heart Rate Pre-Dialysis 78 BPM Standing Heart Rate Post-Dialysis 73 BPM Temperature Pre-Dialysis 98.2 degF Temperature Post -Dialysis 98.1 degF July 29, 2022 In-Center Hemodialysis Treatment [id number]:05:05.000Z 3658-14-39O07:09:40.000Z BP Sitting (Pre-Dialysis) 184/115 mmHg BP Sitting (Post-Dialysis) 154/74 mmHg Concurrent Access: falseAV Fistula Upper Arm (Left) Arterial BP Standing (Pre-Dialysis) 198/114 mmHg BP Standing (P ost-Dialysis) 171/101 mmHg Sitting Heart Rate Pre-Dialysis 79 BPM Sitting Heart Rate Post-Dialysis 73 BPM Standing Heart Rate Pre-Dialysis 80 BPM Standing Heart Rate Post-Dialysis 78 BPM Temperature Pre-Dialysis 98.4 degF Temperature Post -Dialysis 98.6 degF July 26, 2022 In-Center Hemodialysis Treatment 2943-75-50W37:12:00.000Z 2722-12-20E96:12:51.000Z BP Sitting (Pre-Dialysis) 212/125 mmHg BP Sitting (Post-Dialysis) 139/75 mmHg Concurrent Access: falseAV Fistula Upper Arm (Left) Arterial BP Standing (Pre-Dialysis) 201/129 mmHg BP Standing (P ost-Dialysis) 138/70 mmHg Sitting Heart Rate Pre-Dialysis 77 BPM Sitting Heart Rate Post-Dialysis 69 BPM Standing Heart Rate Pre-Dialysis 77 BPM Standing Heart Rate Post-Dialysis 72 BPM Temperature Pre-Dialysis 97.3 degF Temperature Post -Dialysis 98.3 degF July 24, 2022 In-Center Hemodialysis Treatment 8951-15-77E27:10:00.000Z 4831-62-80M15:21:34.000Z BP Sitting (Pre-Dialysis) 181/111 mmHg BP Sitting (Post-Dialysis) 151/85 mmHg Concurrent Access: falseAV Fistula Upper Arm (Left) Arterial BP Standing (Pre-Dialysis) 168/107 mmHg BP Standing (P ost-Dialysis) 146/82 mmHg Sitting Heart Rate Pre-Dialysis 69 BPM Sitting Heart Rate Post-Dialysis 67 BPM Standing Heart Rate Pre-Dialysis 70 BPM Standing Heart Rate Post-Dialysis 69 BPM Temperature Pre-Dialysis 98.2 degF Temperature Post -Dialysis 98.4 degF July 22, 2022 In-Center Hemodialysis Treatment [id number]:05:00.000Z 5745-28-05I34:10:29.000Z BP Sitting (Pre-Dialysis) 185/105 mmHg BP Sitting (Post-Dialysis) 152/82 mmHg Concurrent Access: falseAV Fistula Upper Arm (Left) Arterial BP Standing (Pre-Dialysis) 169/86 mmHg Sitti ng Heart Rate Post-Dialysis 70 BPM Sitting Heart Rate Pre-Dialysis 76 BPM Temperatu re Post-Dialysis 97.9 degF Standing Heart Rate Pre-Dialysis 79 BPM Temperature Pre-Dialysis 98.2 degF July 19, 2022 In-Center Hemodialysis Treatment 3230-20-84Z56:02:15.000Z 2612-29-83I83:02:40.000Z BP Sitting (Pre-Dialysis) 179/107 mmHg BP Sitting (Post-Dialysis) 150/78 mmHg Concurrent Access: falseAV Fistula Upper Arm (Left) Arterial BP Standing (Pre-Dialysis) 165/104 mmHg BP Standing (P ost-Dialysis) 141/90 mmHg Sitting Heart Rate Pre-Dialysis 71 BPM Sitting Heart Rate Post-Dialysis 71 BPM Standing Heart Rate Pre-Dialysis 104 BPM Standing Heart Rate Post-Dialysis 72 BPM Temperature Pre-Dialysis 97.6 degF Temperature Post -Dialysis 98.1 degF July 17, 2022 In-Center Hemodialysis Treatment 6190-64-73P44:04:36.000Z 2922-75-46O50:04:11.000Z BP Sitting (Pre-Dialysis) 179/11 mmHg BP Sitting (Post-Dialysis) 134/77 mmHg Concurrent Access: falseAV Fistula Upper Arm (Left) Arterial BP Standing (Pre-Dialysis) 184/114 mmHg BP Standing (P ost-Dialysis) 135/81 mmHg Sitting Heart Rate Pre-Dialysis 68 BPM Sitting Heart Rate Post-Dialysis 74 BPM Standing Heart Rate Pre-Dialysis 72 BPM Standing Heart Rate Post-Dialysis 71 BPM Temperature Pre-Dialysis 97.1 degF Temperature Post -Dialysis 98.1 degF July 15, 2022 In-Center Hemodialysis Treatment [id number]:03:00.000Z 2761-79-89Q96:08:38.000Z BP Sitting (Pre-Dialysis) 157/97 mmHg BP Sitting (Post-Dialysis) 142/79 mmHg Concurrent Access: falseAV Fistula Upper Arm (Left) Arterial BP Standing (Pre-Dialysis) 169/65 mmHg BP Standing (P ost-Dialysis) 153/85 mmHg Sitting Heart Rate Pre-Dialysis 76 BPM Sitting Heart Rate Post-Dialysis 74 BPM Standing Heart Rate Pre-Dialysis 70 BPM Standing Heart Rate Post-Dialysis 79 BPM Temperature Pre-Dialysis 98 degF Temperature Post -Dialysis 98.7 degF July 12, 2022 In-Center Hemodialysis Treatment 1399-97-63P02:00:00.000Z 0056-03-85V53:01:51.000Z BP Sitting (Pre-Dialysis) 162/92 mmHg BP Sitting (Post-Dialysis) 160/82 mmHg Concurrent Access: falseAV Fistula Upper Arm (Left) Arterial BP Standing (Pre-Dialysis) 175/107 mmHg BP Standing (P ost-Dialysis) 148/89 mmHg Sitting Heart Rate Pre-Dialysis 66 BPM Sitting Heart Rate Post-Dialysis 73 BPM Standing Heart Rate Pre-Dialysis 69 BPM Standing Heart Rate Post-Dialysis 78 BPM Temperature Pre-Dialysis 98.6 degF Temperature Post -Dialysis 97.9 degF July 10, 2022 In-Center Hemodialysis Treatment 6165-49-03Z77:20:11.000Z 8820-70-43P62:20:11.000Z BP Sitting (Pre-Dialysis) 152/105 mmHg BP Sitting (Post-Dialysis) 152/82 mmHg Concurrent Access: falseAV Fistula Upper Arm (Left) Arterial BP Standing (Pre-Dialysis) 200/107 mmHg BP Standing (P ost-Dialysis) 158/97 mmHg Sitting Heart Rate Pre-Dialysis 98 BPM Sitting Heart Rate Post-Dialysis 84 BPM Standing Heart Rate Pre-Dialysis 60 BPM Standing Heart Rate Post-Dialysis 90 BPM Temperature Pre-Dialysis 97.3 degF Temperature Post -Dialysis 98.4 degF July 08, 2022 In-Center Hemodialysis Treatment 2185-27-19J74:03:00.000Z 9512-19-21X43:04:03.000Z BP Sitting (Pre-Dialysis) 191/107 mmHg BP Sitting (Post-Dialysis) 163/85 mmHg Concurrent Access: falseAV Fistula Upper Arm (Left) Arterial BP Standing (Pre-Dialysis) 186/112 mmHg BP Standing (P ost-Dialysis) 172/96 mmHg Sitting Heart Rate Pre-Dialysis 71 BPM Sitting Heart Rate Post-Dialysis 82 BPM Standing Heart Rate Pre-Dialysis 77 BPM Standing Heart Rate Post-Dialysis 81 BPM Temperature Pre-Dialysis 98.3 degF Temperature Post -Dialysis 97 degF July 05, 2022 In-Center Hemodialysis Treatment [id number]:05:00.000Z [id number]:08:52.000Z BP Sitting (Pre-Dialysis) 196/112 mmHg BP Sitting (Post-Dialysis) 146/68 mmHg Concurrent Access: falseAV Fistula Upper Arm (Left) Arterial BP Standing (Pre-Dialysis) 194/117 mmHg BP Standing (P ost-Dialysis) 154/89 mmHg Sitting Heart Rate Pre-Dialysis 75 BPM Sitting Heart Rate Post-Dialysis 80 BPM Standing Heart Rate Pre-Dialysis 80 BPM Standing Heart Rate Post-Dialysis 83 BPM Temperature Pre-Dialysis 98.2 degF Temperature Post -Dialysis 97.6 degF July 03, 2022 In-Center Hemodialysis Treatment [id number]:31:00.000Z [id number]:29:00.000Z BP Sitting (Pre-Dialysis) 169/99 mmHg BP Sitting (Post-Dialysis) 140/87 mmHg Concurrent Access: falseAV Fistula Upper Arm (Left) Arterial BP Standing (Pre-Dialysis) 165/99 mmHg BP Standing (P ost-Dialysis) 147/88 mmHg Sitting Heart Rate Pre-Dialysis 66 BPM Sitting Heart Rate Post-Dialysis 77 BPM Standing Heart Rate Pre-Dialysis 68 BPM Standing Heart Rate Post-Dialysis 79 BPM Temperature Pre-Dialysis 97.3 degF Temperature Post -Dialysis 97 degF June 28, 2022 In-Center Hemodialysis Treatment [id number]:11:00.000Z [id number]:11:06.000Z BP Sitting (Pre-Dialysis) 191/110 mmHg BP Sitting (Post-Dialysis) 142/85 mmHg Concurrent Access: falseAV Fistula Upper Arm (Left) Arterial BP Standing (Pre-Dialysis) 180/107 mmHg BP Standing (P ost-Dialysis) 152/94 mmHg Sitting Heart Rate Pre-Dialysis 73 BPM Sitting Heart Rate Post-Dialysis 74 BPM Standing Heart Rate Pre-Dialysis 73 BPM Standing Heart Rate Post-Dialysis 86 BPM Temperature Pre-Dialysis 98.3 degF Temperature Post -Dialysis 98 degF June 26, 2022 In-Center Hemodialysis Treatment [id number]:09:00.000Z [id number]:15:10.000Z BP Sitting (Pre-Dialysis) 177/107 mmHg BP Sitting (Post-Dialysis) 147/83 mmHg Concurrent Access: falseAV Fistula Upper Arm (Left) Arterial BP Standing (Pre-Dialysis) 168/103 mmHg BP Standing (P ost-Dialysis) 148/84 mmHg Sitting Heart Rate Pre-Dialysis 77 BPM Sitting Heart Rate Post-Dialysis 81 BPM Standing Heart Rate Pre-Dialysis 77 BPM Standing Heart Rate Post-Dialysis 85 BPM Temperature Pre-Dialysis 98.1 degF Temperature Post -Dialysis 98.2 degF June 24, 2022 In-Center Hemodialysis Treatment [id number]:12:43.000Z [id number]:14:23.000Z BP Sitting (Pre-Dialysis) 150/95 mmHg BP Sitting (Post-Dialysis) 140/39 mmHg Concurrent Access: falseAV Fistula Upper Arm (Left) Arterial BP Standing (Pre-Dialysis) 155/92 mmHg BP Standing (P ost-Dialysis) 153/87 mmHg Sitting Heart Rate Pre-Dialysis 72 BPM Sitting Heart Rate Post-Dialysis 79 BPM Standing Heart Rate Pre-Dialysis 70 BPM Standing Heart Rate Post-Dialysis 85 BPM Temperature Pre-Dialysis 98.2 degF June 21, 2022 In-Center Hemodialysis Treatment [id number]:22:10.000Z [id number]:25:05.000Z BP Sitting (Pre-Dialysis) 213/90 mmHg BP Sitting (Post-Dialysis) 145/78 mmHg Concurrent Access: falseAV Fistula Upper Arm (Left) Arterial BP Standing (Pre-Dialysis) 205/123 mmHg BP Standing (P ost-Dialysis) 140/76 mmHg Sitting Heart Rate Pre-Dialysis 76 BPM Sitting Heart Rate Post-Dialysis 65 BPM Standing Heart Rate Pre-Dialysis 72 BPM Standing Heart Rate Post-Dialysis 76 BPM Temperature Pre-Dialysis 97.7 degF Temperature Post -Dialysis 97.8 degF June 19, 2022 In-Center Hemodialysis Treatment [id number]:03:07.000Z [id number]:02:42.000Z BP Sitting (Pre-Dialysis) 181/107 mmHg BP Sitting (Post-Dialysis) 157/78 mmHg Concurrent Access: falseAV Fistula Upper Arm (Left) Arterial BP Standing (Pre-Dialysis) 184/111 mmHg BP Standing (P ost-Dialysis) 160/86 mmHg Sitting Heart Rate Pre-Dialysis 76 BPM Sitting Heart Rate Post-Dialysis 81 BPM Standing Heart Rate Pre-Dialysis 80 BPM Standing Heart Rate Post-Dialysis 86 BPM Temperature Pre-Dialysis 97.5 degF Temperature Post -Dialysis 97.7 degF June 17, 2022 In-Center Hemodialysis Treatment [id number]:15:00.000Z [id number]:22:27.000Z BP Sitting (Pre-Dialysis) 179/110 mmHg BP Sitting (Post-Dialysis) 173/81 mmHg Concurrent Access: falseAV Fistula Upper Arm (Left) Arterial BP Standing (Pre-Dialysis) 186/107 mmHg BP Standing (P ost-Dialysis) 170/97 mmHg Sitting Heart Rate Pre-Dialysis 73 BPM Sitting Heart Rate Post-Dialysis 83 BPM Standing Heart Rate Pre-Dialysis 72 BPM Standing Heart Rate Post-Dialysis 84 BPM Temperature Pre-Dialysis 98 degF Temperature Post -Dialysis 97.7 degF June 14, 2022 In-Center Hemodialysis Treatment [id number]:11:00.000Z [id number]:10:45.000Z BP Sitting (Pre-Dialysis) 180/113 mmHg BP Sitting (Post-Dialysis) 142/73 mmHg Concurrent Access: falseAV Fistula Upper Arm (Left) Arterial BP Standing (Pre-Dialysis) 184/105 mmHg BP Standing (P ost-Dialysis) 145/84 mmHg Sitting Heart Rate Pre-Dialysis 71 BPM Sitting Heart Rate Post-Dialysis 80 BPM Standing Heart Rate Pre-Dialysis 72 BPM Standing Heart Rate Post-Dialysis 81 BPM Temperature Pre-Dialysis 97.6 degF Temperature Post -Dialysis 98 degF June 12, 2022 In-Center Hemodialysis Treatment [id number]:27:00.000Z [id number]:28:32.000Z BP Sitting (Pre-Dialysis) 183/78 mmHg BP Sitting (Post-Dialysis) 156/75 mmHg Concurrent Access: falseAV Fistula Upper Arm (Left) Arterial BP Standing (Pre-Dialysis) 175/89 mmHg BP Standing (P ost-Dialysis) 145/85 mmHg Sitting Heart Rate Pre-Dialysis 66 BPM Sitting Heart Rate Post-Dialysis 72 BPM Standing Heart Rate Pre-Dialysis 68 BPM Standing Heart Rate Post-Dialysis 65 BPM Temperature Pre-Dialysis 97.6 degF Temperature Post -Dialysis 97.6 degF June 10, 2022 In-Center Hemodialysis Treatment [id number]:05:00.000Z [id number]:06:31.000Z BP Sitting (Pre-Dialysis) 170/99 mmHg BP Sitting (Post-Dialysis) 156/82 mmHg Concurrent Access: falseAV Fistula Upper Arm (Left) Arterial BP Standing (Pre-Dialysis) 188/106 mmHg BP Standing (P ost-Dialysis) 160/93 mmHg Sitting Heart Rate Pre-Dialysis 68 BPM Sitting Heart Rate Post-Dialysis 78 BPM Standing Heart Rate Pre-Dialysis 70 BPM Standing Heart Rate Post-Dialysis 80 BPM Temperature Pre-Dialysis 98.1 degF June 07, 2022 In-Center Hemodialysis Treatment [id number]:05:00.000Z [id number]:05:00.000Z BP Sitting (Pre-Dialysis) 175/101 mmHg BP Sitting (Post-Dialysis) 147/85 mmHg Concurrent Access: falseAV Fistula Upper Arm (Left) Arterial BP Standing (Pre-Dialysis) 185/120 mmHg BP Standing (P ost-Dialysis) 157/93 mmHg Sitting Heart Rate Pre-Dialysis 69 BPM Sitting Heart Rate Post-Dialysis 80 BPM Standing Heart Rate Pre-Dialysis 74 BPM Standing Heart Rate Post-Dialysis 79 BPM Temperature Pre-Dialysis 97.6 degF Temperature Post -Dialysis 97.6 degF June 05, 2022 In-Center Hemodialysis Treatment [id number]:17:57.000Z [id number]:19:12.000Z BP Sitting (Pre-Dialysis) 196/118 mmHg BP Sitting (Post-Dialysis) 152/89 mmHg Concurrent Access: falseAV Fistula Upper Arm (Left) Arterial BP Standing (Pre-Dialysis) 201/117 mmHg BP Standing (P ost-Dialysis) 148/87 mmHg Sitting Heart Rate Pre-Dialysis 78 BPM Sitting Heart Rate Post-Dialysis 77 BPM Standing Heart Rate Pre-Dialysis 77 BPM Standing Heart Rate Post-Dialysis 76 BPM Temperature Pre-Dialysis 98.1 degF Temperature Post -Dialysis 98.1 degF June 03, 2022 In-Center Hemodialysis Treatment [id number]:25:00.000Z [id number]:26:05.000Z BP Sitting (Pre-Dialysis) 187/106 mmHg BP Sitting (Post-Dialysis) 168/98 mmHg Concurrent Access: falseAV Fistula Upper Arm (Left) Arterial BP Standing (Pre-Dialysis) 189/109 mmHg BP Standing (P ost-Dialysis) 154/99 mmHg Sitting Heart Rate Pre-Dialysis 65 BPM Sitting Heart Rate Post-Dialysis 86 BPM Standing Heart Rate Pre-Dialysis 68 BPM Standing Heart Rate Post-Dialysis 84 BPM Temperature Pre-Dialysis 97.3 degF Temperature Post -Dialysis 98.3 degF May 31, 2022 In-Center Hemodialysis Treatment [id number]:14:00.000Z [id number]:12:47.000Z BP Sitting (Pre-Dialysis) 189/106 mmHg BP Sitting (Post-Dialysis) 150/72 mmHg Concurrent Access: falseAV Fistula Upper Arm (Left) Arterial BP Standing (Pre-Dialysis) 184/105 mmHg BP Standing (P ost-Dialysis) 142/90 mmHg Sitting Heart Rate Pre-Dialysis 67 BPM Sitting Heart Rate Post-Dialysis 70 BPM Standing Heart Rate Pre-Dialysis 68 BPM Standing Heart Rate Post-Dialysis 73 BPM Temperature Pre-Dialysis 98 degF May 29, 2022 In-Center Hemodialysis Treatment [id number]:11:00.000Z [id number]:13:39.000Z BP Sitting (Pre-Dialysis) 196/106 mmHg BP Sitting (Post-Dialysis) 146/74 mmHg Concurrent Access: falseAV Fistula Upper Arm (Left) Arterial BP Standing (Pre-Dialysis) 191/118 mmHg BP Standing (P ost-Dialysis) 141/86 mmHg Sitting Heart Rate Pre-Dialysis 67 BPM Sitting Heart Rate Post-Dialysis 75 BPM Standing Heart Rate Pre-Dialysis 68 BPM Standing Heart Rate Post-Dialysis 74 BPM Temperature Pre-Dialysis 98.3 degF Temperature Post -Dialysis 98.6 degF May 27, 2022 In-Center Hemodialysis Treatment [id number]:05:00.000Z [id number]:00:52.000Z BP Sitting (Pre-Dialysis) 200/105 mmHg BP Sitting (Post-Dialysis) 148/80 mmHg Concurrent Access: falseAV Fistula Upper Arm (Left) Arterial BP Standing (Pre-Dialysis) 194/108 mmHg BP Standing (P ost-Dialysis) 155/88 mmHg Sitting Heart Rate Pre-Dialysis 71 BPM Sitting Heart Rate Post-Dialysis 76 BPM Standing Heart Rate Pre-Dialysis 70 BPM Standing Heart Rate Post-Dialysis 75 BPM Temperature Pre-Dialysis 98 degF Temperature Post -Dialysis 98.6 degF May 24, 2022 In-Center Hemodialysis Treatment [id number]:10:52.000Z [id number]:12:07.000Z BP Sitting (Pre-Dialysis) 178/105 mmHg BP Sitting (Post-Dialysis) 147/76 mmHg Concurrent Access: falseAV Fistula Upper Arm (Left) Arterial BP Standing (Pre-Dialysis) 183/104 mmHg BP Standing (P ost-Dialysis) 147/88 mmHg Sitting Heart Rate Pre-Dialysis 67 BPM Sitting Heart Rate Post-Dialysis 73 BPM Standing Heart Rate Pre-Dialysis 69 BPM Standing Heart Rate Post-Dialysis 70 BPM Temperature Pre-Dialysis 98.1 degF Temperature Post -Dialysis 98.3 degF May 22, 2022 In-Center Hemodialysis Treatment [id number]:05:00.000Z [id number]:06:53.000Z BP Sitting (Pre-Dialysis) 158/103 mmHg BP Sitting (Post-Dialysis) 138/69 mmHg Concurrent Access: falseAV Fistula Upper Arm (Left) Arterial BP Standing (Pre-Dialysis) 137/105 mmHg BP Standing (P ost-Dialysis) 137/83 mmHg Sitting Heart Rate Pre-Dialysis 70 BPM Sitting Heart Rate Post-Dialysis 70 BPM Standing Heart Rate Pre-Dialysis 73 BPM Standing Heart Rate Post-Dialysis 72 BPM Temperature Pre-Dialysis 98 degF Temperature Post -Dialysis 98.1 degF May 20, 2022 In-Center Hemodialysis Treatment [id number]:10:00.000Z [id number]:11:31.000Z BP Sitting (Pre-Dialysis) 181/122 mmHg BP Sitting (Post-Dialysis) 127/106 mmHg Concurrent Access: falseAV Fistula Upper Arm (Left) Arterial BP Standing (Pre-Dialysis) 188/120 mmHg BP Standing (P ost-Dialysis) 145/82 mmHg Sitting Heart Rate Pre-Dialysis 69 BPM Sitting Heart Rate Post-Dialysis 74 BPM Standing Heart Rate Pre-Dialysis 76 BPM Standing Heart Rate Post-Dialysis 78 BPM Temperature Pre-Dialysis 97.3 degF Temperature Post -Dialysis 98 degF May 17, 2022 In-Center Hemodialysis Treatment [id number]:20:00.000Z 7547-00-07O61:29:11.000Z BP Sitting (Pre-Dialysis) 190/75 mmHg BP Sitting (Post-Dialysis) 141/76 mmHg Concurrent Access: falseAV Fistula Upper Arm (Left) Arterial BP Standing (Pre-Dialysis) 168/108 mmHg BP Standing (P ost-Dialysis) 126/96 mmHg Sitting Heart Rate Pre-Dialysis 73 BPM Sitting Heart Rate Post-Dialysis 78 BPM Standing Heart Rate Pre-Dialysis 76 BPM Standing Heart Rate Post-Dialysis 72 BPM Temperature Pre-Dialysis 97.6 degF Temperature Post -Dialysis 98.7 degF May 15, 2022 In-Center Hemodialysis Treatment [id number]:10:00.000Z [id number]:21:54.000Z BP Sitting (Pre-Dialysis) 178/102 mmHg BP Sitting (Post-Dialysis) 151/80 mmHg Concurrent Access: falseAV Fistula Upper Arm (Left) Arterial BP Standing (Pre-Dialysis) 195/109 mmHg BP Standing (P ost-Dialysis) 161/88 mmHg Sitting Heart Rate Pre-Dialysis 71 BPM Sitting Heart Rate Post-Dialysis 75 BPM Standing Heart Rate Pre-Dialysis 71 BPM Standing Heart Rate Post-Dialysis 66 BPM Temperature Pre-Dialysis 97.9 degF Temperature Post -Dialysis 97.6 degF May 13, 2022 In-Center Hemodialysis Treatment [id number]:00:00.000Z [id number]:05:26.000Z BP Sitting (Pre-Dialysis) 198/114 mmHg BP Sitting (Post-Dialysis) 150/84 mmHg Concurrent Access: falseAV Fistula Upper Arm (Left) Arterial BP Standing (Pre-Dialysis) 179/110 mmHg BP Standing (P ost-Dialysis) 149/87 mmHg Sitting Heart Rate Pre-Dialysis 71 BPM Sitting Heart Rate Post-Dialysis 83 BPM Standing Heart Rate Pre-Dialysis 72 BPM Standing Heart Rate Post-Dialysis 84 BPM Temperature Pre-Dialysis 97.9 degF Temperature Post -Dialysis 97.5 degF May 10, 2022 In-Center Hemodialysis Treatment [id number]:12:00.000Z [id number]:14:30.000Z BP Sitting (Pre-Dialysis) 191/117 mmHg BP Sitting (Post-Dialysis) 141/79 mmHg Concurrent Access: falseAV Fistula Upper Arm (Left) Arterial BP Standing (Pre-Dialysis) 184/112 mmHg BP Standing (P ost-Dialysis) 148/92 mmHg Sitting Heart Rate Pre-Dialysis 77 BPM Sitting Heart Rate Post-Dialysis 72 BPM Standing Heart Rate Pre-Dialysis 79 BPM Standing Heart Rate Post-Dialysis 72 BPM Temperature Pre-Dialysis 98 degF Temperature Post -Dialysis 98.3 degF May 08, 2022 In-Center Hemodialysis Treatment [id number]:01:00.000Z [id number]:02:30.000Z BP Sitting (Pre-Dialysis) 191/113 mmHg BP Sitting (Post-Dialysis) 147/85 mmHg Concurrent Access: falseAV Fistula Upper Arm (Left) Arterial BP Standing (Pre-Dialysis) 187/123 mmHg BP Standing (P ost-Dialysis) 141/85 mmHg Sitting Heart Rate Pre-Dialysis 73 BPM Sitting Heart Rate Post-Dialysis 74 BPM Standing Heart Rate Pre-Dialysis 73 BPM Standing Heart Rate Post-Dialysis 76 BPM Temperature Pre-Dialysis 97.9 degF Temperature Post -Dialysis 97.1 degF May 06, 2022 In-Center Hemodialysis Treatment [id number]:04:00.000Z [id number]:05:24.000Z BP Sitting (Pre-Dialysis) 193/131 mmHg BP Sitting (Post-Dialysis) 160/92 mmHg Concurrent Access: falseAV Fistula Upper Arm (Left) Arterial BP Standing (Pre-Dialysis) 197/125 mmHg BP Standing (P ost-Dialysis) 182/144 mmHg Sitting Heart Rate Pre-Dialysis 77 BPM Sitting Heart Rate Post-Dialysis 77 BPM Standing Heart Rate Pre-Dialysis 79 BPM Standing Heart Rate Post-Dialysis 75 BPM Temperature Pre-Dialysis 98.3 degF Temperature Post -Dialysis 97.7 degF May 03, 2022 In-Center Hemodialysis Treatment [id number]:55:00.000Z [id number]:41:11.000Z BP Sitting (Pre-Dialysis) 202/124 mmHg BP Sitting (Post-Dialysis) 158/86 mmHg Concurrent Access: falseAV Fistula Upper Arm (Left) Arterial BP Standing (Pre-Dialysis) 191/117 mmHg BP Standing (P ost-Dialysis) 147/88 mmHg Sitting Heart Rate Pre-Dialysis 71 BPM Sitting Heart Rate Post-Dialysis 71 BPM Standing Heart Rate Pre-Dialysis 70 BPM Standing Heart Rate Post-Dialysis 73 BPM Temperature Pre-Dialysis 97.6 degF Temperature Post -Dialysis 97.6 degF May 01, 2022 In-Center Hemodialysis Treatment [id number]:50:40.000Z [id number]:46:55.000Z BP Sitting (Pre-Dialysis) 194/129 mmHg BP Sitting (Post-Dialysis) 157/97 mmHg Concurrent Access: falseAV Fistula Upper Arm (Left) Arterial BP Standing (Pre-Dialysis) 191/123 mmHg BP Standing (P ost-Dialysis) 147/91 mmHg Sitting Heart Rate Pre-Dialysis 73 BPM Sitting Heart Rate Post-Dialysis 79 BPM Standing Heart Rate Pre-Dialysis 75 BPM Standing Heart Rate Post-Dialysis 75 BPM Temperature Pre-Dialysis 98.3 degF Temperature Post -Dialysis 98.4 degF April 29, 2022 In-Center Hemodialysis Treatment [id number]:50:00.000Z [id number]:43:34.000Z BP Sitting (Pre-Dialysis) 208/123 mmHg BP Sitting (Post-Dialysis) 163/112 mmHg Concurrent Access: falseAV Fistula Upper Arm (Left) Arterial BP Standing (Pre-Dialysis) 211/130 mmHg BP Standing (P ost-Dialysis) 180/105 mmHg Sitting Heart Rate Pre-Dialysis 74 BPM Sitting Heart Rate Post-Dialysis 74 BPM Standing Heart Rate Pre-Dialysis 77 BPM Standing Heart Rate Post-Dialysis 78 BPM Temperature Pre-Dialysis 98.1 degF Temperature Post -Dialysis 98.4 degF April 26, 2022 In-Center Hemodialysis Treatment [id number]:58:00.000Z [id number]:53:16.000Z BP Sitting (Pre-Dialysis) 185/119 mmHg BP Sitting (Post-Dialysis) 161/100 mmHg Concurrent Access: falseAV Fistula Upper Arm (Left) Arterial BP Standing (Pre-Dialysis) 174/119 mmHg BP Standing (P ost-Dialysis) 161/95 mmHg Sitting Heart Rate Pre-Dialysis 82 BPM Sitting Heart Rate Post-Dialysis 71 BPM Standing Heart Rate Pre-Dialysis 76 BPM Standing Heart Rate Post-Dialysis 86 BPM Temperature Pre-Dialysis 97.4 degF April 24, 2022 In-Center Hemodialysis Treatment [id number]:56:46.000Z [id number]:41:21.000Z BP Sitting (Pre-Dialysis) 172/108 mmHg BP Sitting (Post-Dialysis) 152/92 mmHg Concurrent Access: falseAV Fistula Upper Arm (Left) Arterial BP Standing (Pre-Dialysis) 166/106 mmHg BP Standing (P ost-Dialysis) 148/85 mmHg Sitting Heart Rate Pre-Dialysis 71 BPM Sitting Heart Rate Post-Dialysis 71 BPM Standing Heart Rate Pre-Dialysis 81 BPM Standing Heart Rate Post-Dialysis 77 BPM Temperature Pre-Dialysis 97.6 degF Temperature Post -Dialysis 97.6 degF April 22, 2022 In-Center Hemodialysis Treatment [id number]:55:00.000Z [id number]:46:37.000Z BP Sitting (Pre-Dialysis) 172/111 mmHg BP Sitting (Post-Dialysis) 163/104 mmHg Concurrent Access: falseAV Fistula Upper Arm (Left) Arterial BP Standing (Pre-Dialysis) 158/116 mmHg BP Standing (P ost-Dialysis) 158/103 mmHg Sitting Heart Rate Pre-Dialysis 77 BPM Sitting Heart Rate Post-Dialysis 79 BPM Standing Heart Rate Pre-Dialysis 80 BPM Standing Heart Rate Post-Dialysis 85 BPM Temperature Pre-Dialysis 98.3 degF Temperature Post -Dialysis 97.4 degF April 19, 2022 In-Center Hemodialysis Treatment [id number]:07:01.000Z [id number]:44:06.000Z BP Sitting (Pre-Dialysis) 170/106 mmHg BP Sitting (Post-Dialysis) 158/95 mmHg Concurrent Access: falseAV Fistula Upper Arm (Left) Arterial BP Standing (Pre-Dialysis) 171/99 mmHg BP Standing (P ost-Dialysis) 150/94 mmHg Sitting Heart Rate Pre-Dialysis 67 BPM Sitting Heart Rate Post-Dialysis 77 BPM Standing Heart Rate Pre-Dialysis 73 BPM Standing Heart Rate Post-Dialysis 74 BPM Temperature Pre-Dialysis 98 degF Temperature Post -Dialysis 98.7 degF April 17, 2022 In-Center Hemodialysis Treatment [id number]:59:00.000Z 1537-72-12L75:06:02.000Z BP Sitting (Pre-Dialysis) 162/98 mmHg BP Sitting (Post-Dialysis) 156/92 mmHg Concurrent Access: falseAV Fistula Upper Arm (Left) Arterial BP Standing (Pre-Dialysis) 176/111 mmHg BP Standing (P ost-Dialysis) 135/82 mmHg Sitting Heart Rate Pre-Dialysis 77 BPM Sitting Heart Rate Post-Dialysis 80 BPM Standing Heart Rate Pre-Dialysis 78 BPM Standing Heart Rate Post-Dialysis 83 BPM Temperature Pre-Dialysis 98.2 degF Temperature Post -Dialysis 97.1 degF April 15, 2022 In-Center Hemodialysis Treatment [id number]:54:00.000Z [id number]:43:45.000Z BP Sitting (Pre-Dialysis) 172/100 mmHg BP Sitting (Post-Dialysis) 154/99 mmHg Concurrent Access: falseAV Fistula Upper Arm (Left) Arterial BP Standing (Pre-Dialysis) 173/110 mmHg BP Standing (P ost-Dialysis) 169/110 mmHg Sitting Heart Rate Pre-Dialysis 75 BPM Sitting Heart Rate Post-Dialysis 86 BPM Standing Heart Rate Pre-Dialysis 79 BPM Standing Heart Rate Post-Dialysis 83 BPM Temperature Pre-Dialysis 97.2 degF Temperature Post -Dialysis 97.3 degF April 12, 2022 In-Center Hemodialysis Treatment [id number]:01:00.000Z 4301-30-06S61:45:08.000Z BP Sitting (Pre-Dialysis) 184/115 mmHg BP Sitting (Post-Dialysis) 203/115 mmHg Concurrent Access: falseAV Fistula Upper Arm (Left) Arterial BP Standing (Pre-Dialysis) 201/122 mmHg BP Standing (P ost-Dialysis) 186/98 mmHg Sitting Heart Rate Pre-Dialysis 69 BPM Sitting Heart Rate Post-Dialysis 75 BPM Standing Heart Rate Pre-Dialysis 77 BPM Standing Heart Rate Post-Dialysis 80 BPM Temperature Pre-Dialysis 98.2 degF Temperature Post -Dialysis 98 degF April 10, 2022 In-Center Hemodialysis Treatment [id number]:04:00.000Z [id number]:48:30.000Z BP Sitting (Pre-Dialysis) 189/111 mmHg BP Sitting (Post-Dialysis) 150/78 mmHg Concurrent Access: falseAV Fistula Upper Arm (Left) Arterial BP Standing (Pre-Dialysis) 176/113 mmHg BP Standing (P ost-Dialysis) 138/75 mmHg Sitting Heart Rate Pre-Dialysis 90 BPM Sitting Heart Rate Post-Dialysis 60 BPM Standing Heart Rate Pre-Dialysis 101 BPM Standing Heart Rate Post-Dialysis 63 BPM Temperature Pre-Dialysis 97.8 degF Temperature Post -Dialysis 97.8 degF April 08, 2022 In-Center Hemodialysis Treatment [id number]:49:00.000Z [id number]:51:04.000Z BP Sitting (Pre-Dialysis) 189/112 mmHg BP Sitting (Post-Dialysis) 168/99 mmHg Concurrent Access: falseAV Fistula Upper Arm (Left) Arterial BP Standing (Pre-Dialysis) 189/111 mmHg BP Standing (P ost-Dialysis) 165/100 mmHg Sitting Heart Rate Pre-Dialysis 96 BPM Sitting Heart Rate Post-Dialysis 92 BPM Standing Heart Rate Pre-Dialysis 102 BPM Standing Heart Rate Post-Dialysis 97 BPM Temperature Pre-Dialysis 97.7 degF Temperature Post -Dialysis 97.5 degF April 05, 2022 In-Center Hemodialysis Treatment [id number]:08:00.000Z [id number]:40:51.000Z BP Sitting (Pre-Dialysis) 173/107 mmHg BP Sitting (Post-Dialysis) 166/104 mmHg Concurrent Access: falseAV Fistula Upper Arm (Left) Arterial BP Standing (Pre-Dialysis) 168/113 mmHg BP Standing (P ost-Dialysis) 189/110 mmHg Sitting Heart Rate Pre-Dialysis 82 BPM Sitting Heart Rate Post-Dialysis 88 BPM Standing Heart Rate Pre-Dialysis 82 BPM Standing Heart Rate Post-Dialysis 99 BPM Temperature Pre-Dialysis 97.6 degF Temperature Post -Dialysis 98.1 degF April 03, 2022 In-Center Hemodialysis Treatment 5520-26-17N35:30:00.000Z [id number]:44:11.000Z BP Sitting (Pre-Dialysis) 180/106 mmHg BP Sitting (Post-Dialysis) 157/92 mmHg Concurrent Access: falseAV Fistula Upper Arm (Left) Arterial BP Standing (Pre-Dialysis) 178/122 mmHg BP Standing (P ost-Dialysis) 169/104 mmHg Sitting Heart Rate Pre-Dialysis 79 BPM Sitting Heart Rate Post-Dialysis 72 BPM Standing Heart Rate Pre-Dialysis 80 BPM Standing Heart Rate Post-Dialysis 92 BPM Temperature Pre-Dialysis 97.2 degF Temperature Post -Dialysis 97.7 degF April 01, 2022 In-Center Hemodialysis Treatment [id number]:57:00.000Z [id number]:46:14.000Z BP Sitting (Pre-Dialysis) 184/112 mmHg BP Sitting (Post-Dialysis) 171/101 mmHg Concurrent Access: falseAV Fistula Upper Arm (Left) Arterial BP Standing (Pre-Dialysis) 162/104 mmHg Sitti ng Heart Rate Post-Dialysis 79 BPM Sitting Heart Rate Pre-Dialysis 82 BPM Temperatu re Post-Dialysis 98.8 degF Standing Heart Rate Pre-Dialysis 81 BPM Temperature Pre-Dialysis 99.1 degF DIALYSIS ORDER Dialysis Procedure Orders Type of Dialysis Procedure Order Order Date/Time Observations In-Center Hemodialysis Treatment May 16, 2024 Target Weight 52.5 kg Dialysate Flow Rate 500 mL/min Blood Flow Rate 350 mL/min Treatment Time 180 min(total) Max UF Rate 13 mL/kg/hr Base Sodium Dialysate Base Sodium 138 mE q/L dialysate_temp 37 C BiCarb Dialysate BiCarbonate 38 meq/L Access Concurrent No Arterial Access AV Fistula (Upper Ar m (Left)) Venous Access AV Fistula (Upper Ar m (Left)) Arterial Needle Display NIPROKATHRINEIP, 16 G x 1 , SHARP , TWIN Venous Needle NIPROKATHRINEIP, 16G x 1 , SHARP , TWIN Dialyzer Nipro Elisio 15H 126 4 [email or web address] Dialysate Bath Potassium Potassium 2 mEq /L Dialysate Bath Calcium Calcium 2.5 mEq/L Results Adequacy Description Draw Date Result/Unit Status Ref Range Result Comments Dialyzer NATE 2024-06-24 16:39:34 1264 Calc F DIALYZER FLOW-QD 2024-06-24 16:39:34 500 mL/min F TOTAL HOURS/WEEK DIALYSIS 2024-06-24 16:39:34 8 hrs F HEIGHT IN INCHES 2024-06-24 16:39:34 64 Inches F WEIGHT - POST DAY 1 2024-06-24 16:39:34 52.2 kg F BSA CHANELLE 2024-06-24 16:39:34 1.55 sq m F Total Kt/V 2024-06-24 16:39:34 1.45 F WEIGHT - PRE DAY 1 2024-06-24 16:39:34 54.6 kg F PRESCRIBED DAYS/WEEK 2024-06-24 16:39:34 3 Day/Wk F stdKt/V (DIAL) 2024-06-24 16:39:34 N/A F BLOOD FLOW-QWB 2024-06-24 16:39:34 350 F KT/V PRESCRIBED 2024-06-24 16:39:34 1.61 F LENGTH OF DIALYSIS 2024-06-24 16:39:34 182 min F PATIENT AGE 2024-06-24 16:39:34 34 Years F AMPUTATE FACTOR 2024-06-24 16:39:34 0 F spKt/V 2024-06-24 16:39:34 1.45 F CURRENT KRU 2024-06-24 16:39:34 F VM (KT/V MEAN VOL) 2024-06-24 16:39:34 31.6 F Std Renal KT/V 2024-06-24 16:39:34 N/A F eKt/V 2024-06-24 16:39:34 1.2 F stdKT/V Total 2024-06-24 16:39:34 N/A F TBW ([place]) 2024-06-24 16:39:34 34.12 Liters F URR% 2024-06-24 16:39:34 71 % F Residual kt/v 2024-06-24 16:39:34 F WEIGHT (KG) 2024-06-24 16:39:34 52.5 kg F nPCR 2024-06-24 16:39:34 1.38 G/KG/D F VT (KT/V TX VOL) 2024-06-24 16:39:34 32 L F Urea nitrogen [Mass/volume] in Serum or Plasma --post dialysis 2024-06-24 16:37:21 22 mg/dL F 9.0-23.0 Urea nitrogen [Mass/volume] in Serum or Plasma 2024-06-24 15:03:20 75 mg/dL F 9.0-23.0 Creatinine [Mass/volume] in Serum or Plasma 2024-06-10 17:55:19 9.81 mg/dL F 0.7-1.3 TBW ([facility]) 2024-05-27 18:06:18 34.36 Liters F stdKT/V Total 2024-05-27 18:06:18 N/A F PATIENT AGE 2024-05-27 18:06:18 34 Years F DIALYZER FLOW-QD 2024-05-27 18:06:18 500 mL/min F stdKt/V (DIAL) 2024-05-27 18:06:18 N/A F Std Renal KT/V 2024-05-27 18:06:18 N/A F nPCR 2024-05-27 18:06:18 1.28 G/KG/D F BLOOD FLOW-QWB 2024-05-27 18:06:18 350 F spKt/V 2024-05-27 18:06:18 1.34 F KT/V PRESCRIBED 2024-05-27 18:06:18 1.53 F VM (KT/V MEAN VOL) 2024-05-27 18:06:18 31.5 F BSA CHANELLE 2024-05-27 18:06:18 1.55 sq m F TOTAL HOURS/WEEK DIALYSIS 2024-05-27 18:06:18 8 hrs F eKt/V 2024-05-27 18:06:18 1.11 F AMPUTATE FACTOR 2024-05-27 18:06:18 0 F PRESCRIBED DAYS/WEEK 2024-05-27 18:06:18 3 Day/Wk F WEIGHT - POST DAY 1 2024-05-27 18:06:18 52.9 kg F VT (KT/V TX VOL) 2024-05-27 18:06:18 32.9 L F Total Kt/V 2024-05-27 18:06:18 1.34 F Dialyzer NATE 2024-05-27 18:06:18 1264 Calc F CURRENT KRU 2024-05-27 18:06:18 F WEIGHT - PRE DAY 1 2024-05-27 18:06:18 55.3 kg F URR% 2024-05-27 18:06:18 68 % F WEIGHT (KG) 2024-05-27 18:06:18 52.5 kg F Residual kt/v 2024-05-27 18:06:18 F LENGTH OF DIALYSIS 2024-05-27 18:06:18 173 min F HEIGHT IN INCHES 2024-05-27 18:06:18 64 Inches F Urea nitrogen [Mass/volume] in Serum or Plasma --post dialysis 2024-05-27 18:04:25 23 mg/dL F 9.0-23.0 Urea nitrogen [Mass/volume] in Serum or Plasma 2024-05-27 17:41:22 72 mg/dL F 9.0-23.0 Creatinine [Mass/volume] in Serum or Plasma 2024-05-13 16:59:19 9.64 mg/dL F 0.7-1.3 WEIGHT - POST DAY 1 2024-04-29 16:19:00 51.6 kg F BSA CHANELLE 2024-04-29 16:19:00 1.55 sq m F Total Kt/V 2024-04-29 16:19:00 1.5 F Std Renal KT/V 2024-04-29 16:19:00 N/A F nPCR 2024-04-29 16:19:00 1.05 G/KG/D F VM (KT/V MEAN VOL) 2024-04-29 16:19:00 31.1 F AMPUTATE FACTOR 2024-04-29 16:19:00 0 F LENGTH OF DIALYSIS 2024-04-29 16:19:00 182 min F BLOOD FLOW-QWB 2024-04-29 16:19:00 340 F CURRENT KRU 2024-04-29 16:19:00 F TBW ([facility]ash) 2024-04-29 16:19:00 34.02 Liters F PATIENT AGE 2024-04-29 16:19:00 33 Years F Dialyzer NATE 2024-04-29 16:19:00 1264 Calc F VT (KT/V TX VOL) 2024-04-29 16:19:00 30.4 L F PRESCRIBED DAYS/WEEK 2024-04-29 16:19:00 3 Day/Wk F WEIGHT (KG) 2024-04-29 16:19:00 52.5 kg F TOTAL HOURS/WEEK DIALYSIS 2024-04-29 16:19:00 8 hrs F HEIGHT IN INCHES 2024-04-29 16:19:00 64 Inches F stdKt/V (DIAL) 2024-04-29 16:19:00 N/A F eKt/V 2024-04-29 16:19:00 1.25 F Residual kt/v 2024-04-29 16:19:00 F WEIGHT - PRE DAY 1 2024-04-29 16:19:00 54.1 kg F spKt/V 2024-04-29 16:19:00 1.5 F stdKT/V Total 2024-04-29 16:19:00 N/A F URR% 2024-04-29 16:19:00 72 % F KT/V PRESCRIBED 2024-04-29 16:19:00 1.6 F DIALYZER FLOW-QD 2024-04-29 16:19:00 500 mL/min F Urea nitrogen [Mass/volume] in Serum or Plasma 2024-04-29 16:17:23 53 mg/dL F 9.0-23.0 Urea nitrogen [Mass/volume] in Serum or Plasma --post dialysis 2024-04-29 16:16:20 15 mg/dL F 9.0-23.0 Creatinine [Mass/volume] in Serum or Plasma 2024-04-08 17:01:21 9.96 mg/dL F 0.7-1.3 Creatinine [Mass/volume] in Serum or Plasma 2024-03-11 19:21:20 9.66 mg/dL F 0.7-1.3 Creatinine [Mass/volume] in Serum or Plasma 2023-03-06 15:33:27 9.08 mg/dL F 0.7-1.3 Creatinine [Mass/volume] in Serum or Plasma 2022-08-08 17:19:18 11.35 mg/dL F 0.7-1.3 Creatinine [Mass/volume] in Serum or Plasma 2022-07-11 19:03:41 11.77 mg/dL F 0.7-1.3 Creatinine [Mass/volume] in Serum or Plasma 2022-06-13 16:48:58 11.9 mg/dL F 0.7-1.3 Creatinine [Mass/volume] in Serum or Plasma 2022-05-09 17:42:11 12.15 mg/dL F 0.7-1.3 Creatinine [Mass/volume] in Serum or Plasma 2022-04-15 08:04:54 F Canceled - Specimen not received 5 days past draw date Anemia Description Draw Date Result/Unit Status Ref Range Result Comments HCT CALC HGBX3 2024-06-24 15:17:09 31.8 % F 42.0-52.0 Hemoglobin [Mass/volume] in Blood 2024-06-24 15:16:11 10.6 g/dL F 14.0-18.0 IRON SATURATION 2024-06-11 08:09:00 14 % F 21.0-49.0 TIBC 2024-06-11 08:09:00 225 ug/dL F 250.0-425.0 Iron [Mass/volume] in Serum or Plasma 2024-06-11 07:10:01 32 ug/dL F 65.0-175.0 Iron binding capacity.unsaturated [Mass/volume] in Serum or Plasma 2024-06-11 07:10:01 193 ug/dL F 75.0-360.0 Ferritin [Mass/volume] in Serum or Plasma 2024-06-11 06:35:37 523 ng/mL F 22.0-322.0 HCT CALC HGBX3 2024-06-10 20:28:54 34.2 % F 42.0-52.0 Erythrocyte distribution width [Ratio] by Automated count 2024-06-10 20:28:08 17.4 % F 11.0-15.0 Hemoglobin [Mass/volume] in Blood 2024-06-10 20:28:08 11.4 g/dL F 14.0-18.0 Platelets [#/volume] in Blood by Automated count 2024-06-10 20:28:08 133 x 10^3 cells/uL F 140.0-450.0 MCH [Entitic mass] by Automated count 2024-06-10 20:28:08 30.6 pg F 25.9-34.2 MCHC [Mass/volume] by Automated count 2024-06-10 20:28:08 33.3 g/dL F 29.6-35.3 Erythrocytes [#/volume] in Blood by Automated count 2024-06-10 20:28:08 3.75 x 10^6 cells/uL F 4.6-6.2 Hematocrit [Volume Fraction] of Blood by Automated count 2024-06-10 20:28:08 34.4 % F 41.0-53.0 MCV [Entitic volume] by Automated count 2024-06-10 20:28:08 91.7 fL F 80.0-100.0 HCT CALC HGBX3 2024-05-27 15:58:56 31.2 % F 42.0-52.0 Hemoglobin [Mass/volume] in Blood 2024-05-27 15:58:11 10.4 g/dL F 14.0-18.0 HCT CALC HGBX3 2024-05-13 17:07:28 29.7 % F 42.0-52.0 Hemoglobin [Mass/volume] in Blood 2024-05-13 17:06:22 9.9 g/dL F 14.0-18.0 Erythrocytes [#/volume] in Blood by Automated count 2024-05-13 17:06:22 3.18 x 10^6 cells/uL F 4.6-6.2 Hematocrit [Volume Fraction] of Blood by Automated count 2024-05-13 17:06:22 29.1 % F 41.0-53.0 Erythrocyte distribution width [Ratio] by Automated count 2024-05-13 17:06:20 17 % F 11.0-15.0 Platelets [#/volume] in Blood by Automated count 2024-05-13 17:06:20 140 x 10^3 cells/uL F 140.0-450.0 MCH [Entitic mass] by Automated count 2024-05-13 17:06:20 31.1 pg F 25.9-34.2 MCHC [Mass/volume] by Automated count 2024-05-13 17:06:20 34 g/dL F 29.6-35.3 MCV [Entitic volume] by Automated count 2024-05-13 17:06:20 91.5 fL F 80.0-100.0 HCT CALC HGBX3 2024-04-29 17:04:08 28.2 % F 42.0-52.0 Hemoglobin [Mass/volume] in Blood 2024-04-29 17:03:21 9.4 g/dL F 14.0-18.0 HCT CALC HGBX3 2024-04-08 17:51:31 28.8 % F 42.0-52.0 Erythrocyte distribution width [Ratio] by Automated count 2024-04-08 17:50:16 15.5 % F 11.0-15.0 Hemoglobin [Mass/volume] in Blood 2024-04-08 17:50:16 9.6 g/dL F 14.0-18.0 Platelets [#/volume] in Blood by Automated count 2024-04-08 17:50:16 131 x 10^3 cells/uL F 140.0-450.0 MCH [Entitic mass] by Automated count 2024-04-08 17:50:16 29.4 pg F 25.9-34.2 MCHC [Mass/volume] by Automated count 2024-04-08 17:50:16 32.3 g/dL F 29.6-35.3 Erythrocytes [#/volume] in Blood by Automated count 2024-04-08 17:50:16 3.27 x 10'6 cells/uL F 4.6-6.2 Hematocrit [Volume Fraction] of Blood by Automated count 2024-04-08 17:50:16 29.8 % F 41.0-53.0 MCV [Entitic volume] by Automated count 2024-04-08 17:50:16 91.3 fL F 80.0-100.0 Ferritin [Mass/volume] in Serum or Plasma 2024-03-12 08:21:07 753 ng/mL F 22.0-322.0 IRON SATURATION 2024-03-12 04:59:23 26 % F 21.0-49.0 TIBC 2024-03-12 04:59:23 238 ug/dL F 250.0-425.0 Iron [Mass/volume] in Serum or Plasma 2024-03-12 04:51:44 61 ug/dL F 65.0-175.0 Iron binding capacity.unsaturated [Mass/volume] in Serum or Plasma 2024-03-12 04:51:44 177 ug/dL F 75.0-360.0 HCT CALC HGBX3 2024-03-11 19:33:45 28.2 % F 42.0-52.0 Erythrocyte distribution width [Ratio] by Automated count 2024-03-11 19:32:17 16.3 % F 11.0-15.0 Hemoglobin [Mass/volume] in Blood 2024-03-11 19:32:17 9.4 g/dL F 14.0-18.0 Platelets [#/volume] in Blood by Automated count 2024-03-11 19:32:17 131 x 10^3 cells/uL F 140.0-450.0 MCH [Entitic mass] by Automated count 2024-03-11 19:32:17 29.9 pg F 25.9-34.2 MCHC [Mass/volume] by Automated count 2024-03-11 19:32:17 33.3 g/dL F 29.6-35.3 Erythrocytes [#/volume] in Blood by Automated count 2024-03-11 19:32:17 3.14 x 10'6 cells/uL F 4.6-6.2 Hematocrit [Volume Fraction] of Blood by Automated count 2024-03-11 19:32:17 28.3 % F 41.0-53.0 MCV [Entitic volume] by Automated count 2024-03-11 19:32:17 90 fL F 80.0-100.0 HCT CALC HGBX3 2023-10-30 14:36:48 31.2 % F 42.0-52.0 Hemoglobin [Mass/volume] in Blood 2023-10-30 14:36:41 10.4 g/dL F 14.0-18.0 IRON SATURATION 2023-08-20 04:08:56 15 % F 21.0-49.0 TIBC 2023-08-20 04:08:56 226 ug/dL F 250.0-425.0 Iron [Mass/volume] in Serum or Plasma 2023-08-20 04:06:14 34 ug/dL F 65.0-175.0 Iron binding capacity.unsaturated [Mass/volume] in Serum or Plasma 2023-08-20 04:06:05 192 ug/dL F 75.0-360.0 Ferritin [Mass/volume] in Serum or Plasma 2023-08-20 02:18:37 375 ng/mL F 22.0-322.0 IRON SATURATION 2023-03-07 05:19:09 25 % F 21.0-49.0 TIBC 2023-03-07 05:19:09 253 ug/dL F 250.0-425.0 Iron [Mass/volume] in Serum or Plasma 2023-03-07 05:15:04 62 ug/dL F 65.0-175.0 Iron binding capacity.unsaturated [Mass/volume] in Serum or Plasma 2023-03-07 05:15:04 191 ug/dL F 75.0-360.0 Ferritin [Mass/volume] in Serum or Plasma 2023-03-07 03:16:20 405 ng/mL F 22.0-322.0 HCT CALC HGBX3 2023-03-06 15:34:51 33.9 % F 42.0-52.0 Erythrocyte distribution width [Ratio] by Automated count 2023-03-06 15:34:36 20.6 % F 11.0-15.0 Hemoglobin [Mass/volume] in Blood 2023-03-06 15:34:36 11.3 g/dL F 14.0-18.0 Platelets [#/volume] in Blood by Automated count 2023-03-06 15:34:36 168 x 10^3 cells/uL F 140.0-450.0 MCH [Entitic mass] by Automated count 2023-03-06 15:34:36 28.1 pg F 25.9-34.2 MCHC [Mass/volume] by Automated count 2023-03-06 15:34:36 32.2 g/dL F 29.6-35.3 Erythrocytes [#/volume] in Blood by Automated count 2023-03-06 15:34:36 4.04 x 10'6 cells/uL F 4.6-6.2 Hematocrit [Volume Fraction] of Blood by Automated count 2023-03-06 15:34:36 35.3 % F 41.0-53.0 MCV [Entitic volume] by Automated count 2023-03-06 15:34:36 87.3 fL F 80.0-100.0 HCT CALC HGBX3 2022-08-08 16:37:54 29.4 % F 42.0-52.0 Erythrocyte distribution width [Ratio] by Automated count 2022-08-08 16:37:12 14.8 % F 11.0-15.0 Hemoglobin [Mass/volume] in Blood 2022-08-08 16:37:12 9.8 g/dL F 14.0-18.0 Platelets [#/volume] in Blood by Automated count 2022-08-08 16:37:12 145 x 10^3 cells/uL F 150.0-400.0 MCH [Entitic mass] by Automated count 2022-08-08 16:37:12 30.4 pg F 27.0-31.0 MCHC [Mass/volume] by Automated count 2022-08-08 16:37:12 32.5 g/dL F 32.0-36.0 Erythrocytes [#/volume] in Blood by Automated count 2022-08-08 16:37:12 3.24 x 10'6 cells/uL F 4.6-6.2 Hematocrit [Volume Fraction] of Blood by Automated count 2022-08-08 16:37:12 30.3 % F 42.0-52.0 MCV [Entitic volume] by Automated count 2022-08-08 16:37:12 93.7 fL F 80.0-100.0 HCT CALC HGBX3 2022-07-11 18:09:22 30.9 % F 42.0-52.0 Erythrocyte distribution width [Ratio] by Automated count 2022-07-11 18:08:16 14.7 % F 11.0-15.0 Hemoglobin [Mass/volume] in Blood 2022-07-11 18:08:16 10.3 g/dL F 14.0-18.0 Platelets [#/volume] in Blood by Automated count 2022-07-11 18:08:16 184 x 10^3 cells/uL F 150.0-400.0 MCH [Entitic mass] by Automated count 2022-07-11 18:08:16 30.8 pg F 27.0-31.0 MCHC [Mass/volume] by Automated count 2022-07-11 18:08:16 33.2 g/dL F 32.0-36.0 Erythrocytes [#/volume] in Blood by Automated count 2022-07-11 18:08:16 3.35 x 10'6 cells/uL F 4.6-6.2 Hematocrit [Volume Fraction] of Blood by Automated count 2022-07-11 18:08:16 31 % F 42.0-52.0 MCV [Entitic volume] by Automated count 2022-07-11 18:08:16 92.8 fL F 80.0-100.0 TIBC 2022-06-14 06:48:35 248 ug/dL F 250.0-425.0 IRON SATURATION 2022-06-14 06:48:35 27 % F 21.0-49.0 Iron [Mass/volume] in Serum or Plasma 2022-06-14 06:45:54 67 ug/dL F 65.0-175.0 Iron binding capacity.unsaturated [Mass/volume] in Serum or Plasma 2022-06-14 06:45:54 181 ug/dL F 75.0-360.0 HCT CALC HGBX3 2022-06-13 17:05:32 33.3 % F 42.0-52.0 Erythrocyte distribution width [Ratio] by Automated count 2022-06-13 17:04:57 14.2 % F 11.0-15.0 Hematocrit [Volume Fraction] of Blood by Automated count 2022-06-13 17:04:57 33.2 % F 42.0-52.0 MCV [Entitic volume] by Automated count 2022-06-13 17:04:57 95.2 fL F 80.0-100.0 Hemoglobin [Mass/volume] in Blood 2022-06-13 17:04:56 11.1 g/dL F 14.0-18.0 Platelets [#/volume] in Blood by Automated count 2022-06-13 17:04:56 155 x 10^3 cells/uL F 150.0-400.0 MCH [Entitic mass] by Automated count 2022-06-13 17:04:56 31.7 pg F 27.0-31.0 MCHC [Mass/volume] by Automated count 2022-06-13 17:04:56 33.3 g/dL F 32.0-36.0 Erythrocytes [#/volume] in Blood by Automated count 2022-06-13 17:04:56 3.49 x 10'6 cells/uL F 4.6-6.2 Ferritin [Mass/volume] in Serum or Plasma 2022-06-13 15:38:57 420 ng/mL F 22.0-322.0 HCT CALC HGBX3 2022-05-09 20:50:11 33 % F 42.0-52.0 Platelets [#/volume] in Blood by Automated count 2022-05-09 20:49:06 163 x 10^3 cells/uL F 150.0-400.0 Erythrocyte distribution width [Ratio] by Automated count 2022-05-09 20:49:04 14.9 % F 11.0-15.0 Hemoglobin [Mass/volume] in Blood 2022-05-09 20:49:04 11 g/dL F 14.0-18.0 MCH [Entitic mass] by Automated count 2022-05-09 20:49:04 31.6 pg F 27.0-31.0 MCHC [Mass/volume] by Automated count 2022-05-09 20:49:04 32.5 g/dL F 32.0-36.0 Erythrocytes [#/volume] in Blood by Automated count 2022-05-09 20:49:04 3.48 x 10'6 cells/uL F 4.6-6.2 Hematocrit [Volume Fraction] of Blood by Automated count 2022-05-09 20:49:04 33.9 % F 42.0-52.0 MCV [Entitic volume] by Automated count 2022-05-09 20:49:04 97.2 fL F 80.0-100.0 HCT CALC HGBX3 2022-04-15 08:37:53 F Canceled - Specimen not received 5 days past draw date Erythrocyte distribution width [Ratio] by Automated count 2022-04-15 08:04:54 F Canceled - Specimen not received 5 days past draw date Platelets [#/volume] in Blood by Automated count 2022-04-15 08:04:54 F Canceled - Specimen not received 5 days past draw date MCH [Entitic mass] by Automated count 2022-04-15 08:04:54 F Canceled - Specimen not received 5 days past draw date Erythrocytes [#/volume] in Blood by Automated count 2022-04-15 08:04:54 F Canceled - Specimen not received 5 days past draw date MCV [Entitic volume] by Automated count 2022-04-15 08:04:54 F Canceled - Specimen not received 5 days past draw date Hematocrit [Volume Fraction] of Blood by Automated count 2022-04-15 08:04:54 F Canceled - Specimen not received 5 days past draw date MCHC [Mass/volume] by Automated count 2022-04-15 08:04:54 F Canceled - Specimen not received 5 days past draw date Hemoglobin [Mass/volume] in Blood 2022-04-15 08:04:54 F Canceled - Specimen not received 5 days past draw date FluidBP Description Draw Date Result/Unit Status Ref Range Result Comments Sodium [Moles/volume] in Serum or Plasma 2024-06-11 07:09:55 141 mEq/L F 132.0-146.0 Sodium [Moles/volume] in Serum or Plasma 2024-05-14 06:08:48 138 mEq/L F 132.0-146.0 Sodium [Moles/volume] in Serum or Plasma 2024-04-09 05:28:57 138 mEq/L F 132.0-146.0 Sodium [Moles/volume] in Serum or Plasma 2024-03-12 04:51:44 139 mEq/L F 132.0-146.0 Sodium [Moles/volume] in Serum or Plasma 2023-03-06 15:33:27 140 mEq/L F 132.0-146.0 Sodium [Moles/volume] in Serum or Plasma 2022-08-08 17:19:18 139 mEq/L F 132.0-146.0 Sodium [Moles/volume] in Serum or Plasma 2022-07-11 19:03:41 136 mEq/L F 132.0-146.0 Sodium [Moles/volume] in Serum or Plasma 2022-06-13 16:48:58 139 mEq/L F 132.0-146.0 Sodium [Moles/volume] in Serum or Plasma 2022-05-09 17:42:09 141 mEq/L F 132.0-146.0 Sodium [Moles/volume] in Serum or Plasma 2022-04-15 08:04:54 F Canceled - Specimen not received 5 days past draw date General Description Draw Date Result/Unit Status Ref Range Result Comments Chloride [Moles/volume] in Serum or Plasma 2024-06-11 07:09:55 101 mEq/L F 99.0-109.0 Aspartate aminotransferase [Enzymatic activity/volume] in Serum or Plasma 2024-06-10 17:55:19 9 U/L F 0.0-33.0 Alanine aminotransferase [Enzymatic activity/volume] in Serum or Plasma 2024-06-10 17:55:19 9 U/L F 10.0-49.0 Chloride [Moles/volume] in Serum or Plasma 2024-05-14 06:08:48 99 mEq/L F 99.0-109.0 Aspartate aminotransferase [Enzymatic activity/volume] in Serum or Plasma 2024-05-13 16:59:19 9 U/L F 0.0-33.0 Alanine aminotransferase [Enzymatic activity/volume] in Serum or Plasma 2024-05-13 16:59:19 12 U/L F 10.0-49.0 Chloride [Moles/volume] in Serum or Plasma 2024-04-09 05:28:57 97 mEq/L F 99.0-109.0 Aspartate aminotransferase [Enzymatic activity/volume] in Serum or Plasma 2024-04-08 17:01:21 9 U/L F 0.0-33.0 Alanine aminotransferase [Enzymatic activity/volume] in Serum or Plasma 2024-04-08 17:01:21 9 U/L F 10.0-49.0 Chloride [Moles/volume] in Serum or Plasma 2024-03-12 04:51:44 98 mEq/L F 99.0-109.0 Aspartate aminotransferase [Enzymatic activity/volume] in Serum or Plasma 2024-03-11 19:21:20 9 U/L F 0.0-33.0 Alanine aminotransferase [Enzymatic activity/volume] in Serum or Plasma 2024-03-11 19:21:20 14 U/L F 10.0-49.0 Aluminum [Mass/volume] in Serum or Plasma 2024-03-11 19:11:06 10 ug/L F 0.0-9.0 Aluminum [Mass/volume] in Serum or Plasma 2023-03-06 19:29:22 10 ug/L F 0.0-9.0 Aspartate aminotransferase [Enzymatic activity/volume] in Serum or Plasma 2023-03-06 15:33:27 15 U/L F 0.0-33.0 Alanine aminotransferase [Enzymatic activity/volume] in Serum or Plasma 2023-03-06 15:33:27 17 U/L F 10.0-49.0 Chloride [Moles/volume] in Serum or Plasma 2023-03-06 15:33:27 101 mEq/L F 99.0-109.0 Aspartate aminotransferase [Enzymatic activity/volume] in Serum or Plasma 2022-08-08 17:19:18 9 U/L F 0.0-33.0 Alanine aminotransferase [Enzymatic activity/volume] in Serum or Plasma 2022-08-08 17:19:18 14 U/L F 10.0-49.0 Chloride [Moles/volume] in Serum or Plasma 2022-08-08 17:19:18 98 mEq/L F 99.0-109.0 Aspartate aminotransferase [Enzymatic activity/volume] in Serum or Plasma 2022-07-11 19:03:41 15 U/L F 0.0-33.0 Alanine aminotransferase [Enzymatic activity/volume] in Serum or Plasma 2022-07-11 19:03:41 26 U/L F 10.0-49.0 Chloride [Moles/volume] in Serum or Plasma 2022-07-11 19:03:41 99 mEq/L F 99.0-109.0 Aspartate aminotransferase [Enzymatic activity/volume] in Serum or Plasma 2022-06-13 16:48:58 16 U/L F 0.0-33.0 Alanine aminotransferase [Enzymatic activity/volume] in Serum or Plasma 2022-06-13 16:48:58 17 U/L F 10.0-49.0 Chloride [Moles/volume] in Serum or Plasma 2022-06-13 16:48:58 99 mEq/L F 99.0-109.0 Aspartate aminotransferase [Enzymatic activity/volume] in Serum or Plasma 2022-05-09 17:42:11 9 U/L F 0.0-33.0 Alanine aminotransferase [Enzymatic activity/volume] in Serum or Plasma 2022-05-09 17:42:11 12 U/L F 10.0-49.0 Chloride [Moles/volume] in Serum or Plasma 2022-05-09 17:42:09 100 mEq/L F 99.0-109.0 Chloride [Moles/volume] in Serum or Plasma 2022-04-15 08:04:54 F Canceled - Specimen not received 5 days past draw date Aspartate aminotransferase [Enzymatic activity/volume] in Serum or Plasma 2022-04-15 08:04:54 F Canceled - Specimen not received 5 days past draw date Alanine aminotransferase [Enzymatic activity/volume] in Serum or Plasma 2022-04-15 08:04:54 F Canceled - Specimen not received 5 days past draw date InfectionVaccination Description Draw Date Result/Unit Status Ref Range Result Comments Lymphocytes/100 leukocytes in Blood by Automated count 2024-06-10 20:28:08 12.5 % F Monocytes/100 leukocytes in Blood by Automated count 2024-06-10 20:28:08 7 % F Eosinophils/100 leukocytes in Blood by Automated count 2024-06-10 20:28:08 3.5 % F Basophils/100 leukocytes in Blood by Automated count 2024-06-10 20:28:08 0.3 % F Neutrophils/100 leukocytes in Blood by Automated count 2024-06-10 20:28:08 76.6 % F Monocytes [#/volume] in Blood by Automated count 2024-06-10 20:28:08 416 Cells/uL F 0.0-1100.0 Basophils [#/volume] in Blood by Automated count 2024-06-10 20:28:08 18 Cells/uL F 0.0-400.0 Eosinophils [#/volume] in Blood by Automated count 2024-06-10 20:28:08 208 Cells/uL F 0.0-700.0 Neutrophils [#/volume] in Blood by Automated count 2024-06-10 20:28:08 4550 Cells/uL F 2000.0-8800.0 Leukocytes [#/volume] in Blood by Automated count 2024-06-10 20:28:08 5.9 x 10^3 cells/uL F 4.0-11.0 Lymphocytes [#/volume] in Blood by Automated count 2024-06-10 20:28:08 742 Cells/uL F 620.0-3660.0 Leukocytes [#/volume] in Blood by Automated count 2024-05-13 17:06:22 4.7 x 10^3 cells/uL F 4.0-11.0 Eosinophils/100 leukocytes in Blood by Automated count 2024-05-13 17:06:20 4.8 % F Lymphocytes/100 leukocytes in Blood by Automated count 2024-05-13 17:06:20 18 % F Neutrophils/100 leukocytes in Blood by Automated count 2024-05-13 17:06:20 67.2 % F Basophils/100 leukocytes in Blood by Automated count 2024-05-13 17:06:20 1 % F Monocytes/100 leukocytes in Blood by Automated count 2024-05-13 17:06:20 8.9 % F Monocytes [#/volume] in Blood by Automated count 2024-05-13 17:06:20 422 Cells/uL F 0.0-1100.0 Basophils [#/volume] in Blood by Automated count 2024-05-13 17:06:20 47 Cells/uL F 0.0-400.0 Eosinophils [#/volume] in Blood by Automated count 2024-05-13 17:06:20 228 Cells/uL F 0.0-700.0 Neutrophils [#/volume] in Blood by Automated count 2024-05-13 17:06:20 3185 Cells/uL F 2000.0-8800.0 Lymphocytes [#/volume] in Blood by Automated count 2024-05-13 17:06:20 853 Cells/uL F 620.0-3660.0 Eosinophils/100 leukocytes in Blood by Automated count 2024-04-08 17:50:16 5.6 % F Neutrophils/100 leukocytes in Blood by Automated count 2024-04-08 17:50:16 68.4 % F Lymphocytes/100 leukocytes in Blood by Automated count 2024-04-08 17:50:16 17.2 % F Monocytes/100 leukocytes in Blood by Automated count 2024-04-08 17:50:16 7.6 % F Basophils/100 leukocytes in Blood by Automated count 2024-04-08 17:50:16 1.3 % F Monocytes [#/volume] in Blood by Automated count 2024-04-08 17:50:16 382 Cells/uL F 0.0-1100.0 Basophils [#/volume] in Blood by Automated count 2024-04-08 17:50:16 65 Cells/uL F 0.0-400.0 Eosinophils [#/volume] in Blood by Automated count 2024-04-08 17:50:16 282 Cells/uL F 0.0-700.0 Neutrophils [#/volume] in Blood by Automated count 2024-04-08 17:50:16 3441 Cells/uL F 2000.0-8800.0 Leukocytes [#/volume] in Blood by Automated count 2024-04-08 17:50:16 5 x 10^3 cells/uL F 4.0-11.0 Lymphocytes [#/volume] in Blood by Automated count 2024-04-08 17:50:16 865 Cells/uL F 620.0-3660.0 Eosinophils/100 leukocytes in Blood by Automated count 2024-03-11 19:32:17 5.3 % F Basophils/100 leukocytes in Blood by Automated count 2024-03-11 19:32:17 0.3 % F Monocytes/100 leukocytes in Blood by Automated count 2024-03-11 19:32:17 8.8 % F Lymphocytes/100 leukocytes in Blood by Automated count 2024-03-11 19:32:17 22 % F Neutrophils/100 leukocytes in Blood by Automated count 2024-03-11 19:32:17 63.6 % F Monocytes [#/volume] in Blood by Automated count 2024-03-11 19:32:17 479 Cells/uL F 0.0-1100.0 Basophils [#/volume] in Blood by Automated count 2024-03-11 19:32:17 16 Cells/uL F 0.0-400.0 Eosinophils [#/volume] in Blood by Automated count 2024-03-11 19:32:17 288 Cells/uL F 0.0-700.0 Neutrophils [#/volume] in Blood by Automated count 2024-03-11 19:32:17 3460 Cells/uL F 2000.0-8800.0 Leukocytes [#/volume] in Blood by Automated count 2024-03-11 19:32:17 5.4 x 10^3 cells/uL F 4.0-11.0 Lymphocytes [#/volume] in Blood by Automated count 2024-03-11 19:32:17 1197 Cells/uL F 620.0-3660.0 Lymphocytes/100 leukocytes in Blood by Automated count 2023-03-06 15:34:37 10 % F Basophils/100 leukocytes in Blood by Automated count 2023-03-06 15:34:36 0.2 % F Eosinophils/100 leukocytes in Blood by Automated count 2023-03-06 15:34:36 3.9 % F Neutrophils/100 leukocytes in Blood by Automated count 2023-03-06 15:34:36 79.1 % F Monocytes/100 leukocytes in Blood by Automated count 2023-03-06 15:34:36 7 % F Basophils [#/volume] in Blood by Automated count 2023-03-06 15:34:36 18 Cell/uL F 0.0-400.0 Monocytes [#/volume] in Blood by Automated count 2023-03-06 15:34:36 624 Cell/uL F 0.0-1100.0 Eosinophils [#/volume] in Blood by Automated count 2023-03-06 15:34:36 348 Cell/uL F 0.0-700.0 Neutrophils [#/volume] in Blood by Automated count 2023-03-06 15:34:36 7056 Cell/uL F 2000.0-8800.0 Leukocytes [#/volume] in Blood by Automated count 2023-03-06 15:34:36 8.9 x 10^3 cells/uL F 4.0-11.0 Lymphocytes [#/volume] in Blood by Automated count 2023-03-06 15:34:36 892 Cell/uL F 620.0-3660.0 Neutrophils/100 leukocytes in Blood by Automated count 2022-08-08 16:37:12 76.3 % F Eosinophils/100 leukocytes in Blood by Automated count 2022-08-08 16:37:12 2.9 % F Monocytes/100 leukocytes in Blood by Automated count 2022-08-08 16:37:12 7.7 % F Lymphocytes/100 leukocytes in Blood by Automated count 2022-08-08 16:37:12 13 % F Basophils/100 leukocytes in Blood by Automated count 2022-08-08 16:37:12 0.2 % F Monocytes [#/volume] in Blood by Automated count 2022-08-08 16:37:12 578.27 Cell/uL F 0.0-1100.0 Eosinophils [#/volume] in Blood by Automated count 2022-08-08 16:37:12 217.79 Cell/uL F 0.0-700.0 Basophils [#/volume] in Blood by Automated count 2022-08-08 16:37:12 15.02 Cell/uL F 0.0-400.0 Lymphocytes [#/volume] in Blood by Automated count 2022-08-08 16:37:12 976.3 Cell/uL F 1100.0-4800.0 Neutrophils [#/volume] in Blood by Automated count 2022-08-08 16:37:12 5730.13 Cell/uL F 2000.0-8800.0 Leukocytes [#/volume] in Blood by Automated count 2022-08-08 16:37:12 7.5 x 10^3 cells/uL F 4.5-11.0 Neutrophils/100 leukocytes in Blood by Automated count 2022-07-11 18:08:16 88.2 % F Eosinophils/100 leukocytes in Blood by Automated count 2022-07-11 18:08:16 2.5 % F Basophils/100 leukocytes in Blood by Automated count 2022-07-11 18:08:16 0.1 % F Monocytes/100 leukocytes in Blood by Automated count 2022-07-11 18:08:16 3.2 % F Lymphocytes/100 leukocytes in Blood by Automated count 2022-07-11 18:08:16 5.9 % F Monocytes [#/volume] in Blood by Automated count 2022-07-11 18:08:16 304.64 Cell/uL F 0.0-1100.0 Basophils [#/volume] in Blood by Automated count 2022-07-11 18:08:16 9.52 Cell/uL F 0.0-400.0 Eosinophils [#/volume] in Blood by Automated count 2022-07-11 18:08:16 238 Cell/uL F 0.0-700.0 Lymphocytes [#/volume] in Blood by Automated count 2022-07-11 18:08:16 561.68 Cell/uL F 1100.0-4800.0 Neutrophils [#/volume] in Blood by Automated count 2022-07-11 18:08:16 8396.64 Cell/uL F 2000.0-8800.0 Leukocytes [#/volume] in Blood by Automated count 2022-07-11 18:08:16 9.5 x 10^3 cells/uL F 4.5-11.0 Neutrophils/100 leukocytes in Blood by Automated count 2022-06-13 17:04:57 70.3 % F Lymphocytes/100 leukocytes in Blood by Automated count 2022-06-13 17:04:57 18.1 % F Monocytes/100 leukocytes in Blood by Automated count 2022-06-13 17:04:57 7.2 % F Basophils [#/volume] in Blood by Automated count 2022-06-13 17:04:57 43.98 Cell/uL F 0.0-400.0 Neutrophils [#/volume] in Blood by Automated count 2022-06-13 17:04:57 5152.99 Cell/uL F 2000.0-8800.0 Leukocytes [#/volume] in Blood by Automated count 2022-06-13 17:04:57 7.3 x 10^3 cells/uL F 4.5-11.0 Eosinophils/100 leukocytes in Blood by Automated count 2022-06-13 17:04:56 3.8 % F Basophils/100 leukocytes in Blood by Automated count 2022-06-13 17:04:56 0.6 % F Monocytes [#/volume] in Blood by Automated count 2022-06-13 17:04:56 527.76 Cell/uL F 0.0-1100.0 Eosinophils [#/volume] in Blood by Automated count 2022-06-13 17:04:56 278.54 Cell/uL F 0.0-700.0 Lymphocytes [#/volume] in Blood by Automated count 2022-06-13 17:04:56 1326.73 Cell/uL F 1100.0-4800.0 Monocytes/100 leukocytes in Blood by Automated count 2022-05-09 20:49:06 6.1 % F Eosinophils/100 leukocytes in Blood by Automated count 2022-05-09 20:49:06 5 % F Neutrophils/100 leukocytes in Blood by Automated count 2022-05-09 20:49:06 68 % F Lymphocytes [#/volume] in Blood by Automated count 2022-05-09 20:49:06 1349.95 Cell/uL F 1100.0-4800.0 Basophils/100 leukocytes in Blood by Automated count 2022-05-09 20:49:04 0.6 % F Lymphocytes/100 leukocytes in Blood by Automated count 2022-05-09 20:49:04 20.3 % F Monocytes [#/volume] in Blood by Automated count 2022-05-09 20:49:04 405.65 Cell/uL F 0.0-1100.0 Eosinophils [#/volume] in Blood by Automated count 2022-05-09 20:49:04 332.5 Cell/uL F 0.0-700.0 Basophils [#/volume] in Blood by Automated count 2022-05-09 20:49:04 39.9 Cell/uL F 0.0-400.0 Neutrophils [#/volume] in Blood by Automated count 2022-05-09 20:49:04 4522 Cell/uL F 2000.0-8800.0 Leukocytes [#/volume] in Blood by Automated count 2022-05-09 20:49:04 6.6 x 10^3 cells/uL F 4.5-11.0 Lymphocytes [#/volume] in Blood by Automated count 2022-04-15 08:04:54 F Canceled - Specimen not received 5 days past draw date Monocytes [#/volume] in Blood by Automated count 2022-04-15 08:04:54 F Canceled - Specimen not received 5 days past draw date Neutrophils/100 leukocytes in Blood by Automated count 2022-04-15 08:04:54 F Canceled - Specimen not received 5 days past draw date Monocytes/100 leukocytes in Blood by Automated count 2022-04-15 08:04:54 F Canceled - Specimen not received 5 days past draw date Basophils [#/volume] in Blood by Automated count 2022-04-15 08:04:54 F Canceled - Specimen not received 5 days past draw date Lymphocytes/100 leukocytes in Blood by Automated count 2022-04-15 08:04:54 F Canceled - Specimen not received 5 days past draw date Eosinophils/100 leukocytes in Blood by Automated count 2022-04-15 08:04:54 F Canceled - Specimen not received 5 days past draw date Neutrophils [#/volume] in Blood by Automated count 2022-04-15 08:04:54 F Canceled - Specimen not received 5 days past draw date Leukocytes [#/volume] in Blood by Automated count 2022-04-15 08:04:54 F Canceled - Specimen not received 5 days past draw date Eosinophils [#/volume] in Blood by Automated count 2022-04-15 08:04:54 F Canceled - Specimen not received 5 days past draw date Basophils/100 leukocytes in Blood by Automated count 2022-04-15 08:04:54 F Canceled - Specimen not received 5 days past draw date Phosphate [Mass/volume] in Urine MineralBone Disorder Description Draw Date Result/Unit Status Ref Range Result Comments CA CORRECTED 2024-06-24 19:56:08 9.4 mg/dL F CA*PO4 CORRCTD 2024-06-24 19:55:08 80.8 Calc F 21.0-53.0 CA/PHOS PRODUCT 2024-06-24 19:55:08 80.8 Calc F 21.0-53.0 Calcium [Mass/volume] in Serum or Plasma 2024-06-24 17:53:40 9.4 mg/dL F 8.7-10.4 Phosphate [Mass/volume] in Serum or Plasma 2024-06-24 17:53:40 8.6 mg/dL F 2.4-5.1 Parathyrin.intact [Mass/volume] in Serum or Plasma 2024-06-24 15:48:17 447 pg/mL F 18.0-80.0 Alkaline phosphatase [Enzymatic activity/volume] in Serum or Plasma 2024-06-10 17:55:19 97 U/L F 46.0-116.0 CA CORRECTED 2024-05-28 10:44:40 8.9 mg/dL F CA*PO4 CORRCTD 2024-05-28 10:40:46 88.1 Calc F 21.0-53.0 CA/PHOS PRODUCT 2024-05-28 10:40:46 88.1 Calc F 21.0-53.0 Phosphate [Mass/volume] in Serum or Plasma 2024-05-28 08:06:25 9.9 mg/dL F 2.4-5.1 Calcium [Mass/volume] in Serum or Plasma 2024-05-28 08:06:13 8.9 mg/dL F 8.7-10.4 Parathyrin.intact [Mass/volume] in Serum or Plasma 2024-05-27 17:23:53 573 pg/mL F 18.0-80.0 Alkaline phosphatase [Enzymatic activity/volume] in Serum or Plasma 2024-05-13 16:59:19 112 U/L F 46.0-116.0 CA CORRECTED 2024-04-29 21:58:38 9.7 mg/dL F CA*PO4 CORRCTD 2024-04-29 21:57:28 77.6 Calc F 21.0-53.0 CA/PHOS PRODUCT 2024-04-29 21:57:28 77.6 Calc F 21.0-53.0 Phosphate [Mass/volume] in Serum or Plasma 2024-04-29 19:58:13 8 mg/dL F 2.4-5.1 Calcium [Mass/volume] in Serum or Plasma 2024-04-29 19:58:13 9.7 mg/dL F 8.7-10.4 Parathyrin.intact [Mass/volume] in Serum or Plasma 2024-04-29 16:27:17 415 pg/mL F 18.0-80.0 Alkaline phosphatase [Enzymatic activity/volume] in Serum or Plasma 2024-04-08 17:01:21 101 U/L F 46.0-116.0 Alkaline phosphatase [Enzymatic activity/volume] in Serum or Plasma 2024-03-11 19:21:20 111 U/L F 46.0-116.0 Parathyrin.intact [Mass/volume] in Serum or Plasma 2023-03-07 03:16:20 1737 pg/mL F 18.0-80.0 Alkaline phosphatase [Enzymatic activity/volume] in Serum or Plasma 2023-03-06 15:33:27 148 U/L F 46.0-116.0 Alkaline phosphatase [Enzymatic activity/volume] in Serum or Plasma 2022-08-08 17:19:18 77 U/L F 46.0-116.0 Alkaline phosphatase [Enzymatic activity/volume] in Serum or Plasma 2022-07-11 19:03:41 63 U/L F 46.0-116.0 Phosphate [Mass/volume] in Serum or Plasma 2022-06-13 16:48:58 12.3 mg/dL F 2.4-5.1 Alkaline phosphatase [Enzymatic activity/volume] in Serum or Plasma 2022-06-13 16:48:58 59 U/L F 46.0-116.0 Alkaline phosphatase [Enzymatic activity/volume] in Serum or Plasma 2022-05-09 17:42:09 66 U/L F 46.0-116.0 Alkaline phosphatase [Enzymatic activity/volume] in Serum or Plasma 2022-04-15 08:04:54 F Canceled - Specimen not received 5 days past draw date Nutrition Description Draw Date Result/Unit Status Ref Range Result Comments Potassium [Moles/volume] in Serum or Plasma 2024-06-11 07:09:55 5.7 mEq/L F 3.5-5.5 GLOBULIN 2024-06-10 17:56:04 2 g/dL F 0.9-5.0 A/G RATIO 2024-06-10 17:56:04 2.1 Calc F 1.0-2.5 Lactate dehydrogenase [Enzymatic activity/volume] in Serum or Plasma 2024-06-10 17:55:19 215 U/L F 120.0-246.0 Bicarbonate [Moles/volume] in Serum or Plasma 2024-06-10 17:55:19 26 mEq/L F 20.0-31.0 Albumin [Mass/volume] in Serum or Plasma by Bromocresol green (BCG) dye binding method 2024-06-10 17:55:19 4.2 g/dL F 3.4-4.8 Protein [Mass/volume] in Serum or Plasma 2024-06-10 17:55:19 6.2 g/dL F 5.7-8.2 Glucose [Mass/volume] in Serum or Plasma 2024-06-10 17:55:19 107 mg/dL F 70.0-99.0 Potassium [Moles/volume] in Serum or Plasma 2024-05-14 06:08:48 5.9 mEq/L F 3.5-5.5 GLOBULIN 2024-05-13 17:00:22 2 g/dL F 0.9-5.0 A/G RATIO 2024-05-13 17:00:22 2.2 Calc F 1.0-2.5 Lactate dehydrogenase [Enzymatic activity/volume] in Serum or Plasma 2024-05-13 16:59:19 196 U/L F 120.0-246.0 Bicarbonate [Moles/volume] in Serum or Plasma 2024-05-13 16:59:19 26 mEq/L F 20.0-31.0 Albumin [Mass/volume] in Serum or Plasma by Bromocresol green (BCG) dye binding method 2024-05-13 16:59:19 4.3 g/dL F 3.4-4.8 Protein [Mass/volume] in Serum or Plasma 2024-05-13 16:59:19 6.3 g/dL F 5.7-8.2 Glucose [Mass/volume] in Serum or Plasma 2024-05-13 16:59:19 125 mg/dL F 70.0-99.0 Potassium [Moles/volume] in Serum or Plasma 2024-04-09 05:28:57 6 mEq/L F 3.5-5.5 GLOBULIN 2024-04-08 17:02:33 2.1 g/dL F 0.9-5.0 A/G RATIO 2024-04-08 17:02:33 2 Calc F 1.0-2.5 Lactate dehydrogenase [Enzymatic activity/volume] in Serum or Plasma 2024-04-08 17:01:21 162 U/L F 120.0-246.0 Bicarbonate [Moles/volume] in Serum or Plasma 2024-04-08 17:01:21 28 mEq/L F 20.0-31.0 Albumin [Mass/volume] in Serum or Plasma by Bromocresol green (BCG) dye binding method 2024-04-08 17:01:21 4.3 g/dL F 3.4-4.8 Protein [Mass/volume] in Serum or Plasma 2024-04-08 17:01:21 6.4 g/dL F 5.7-8.2 Glucose [Mass/volume] in Serum or Plasma 2024-04-08 17:01:21 97 mg/dL F 70.0-99.0 Potassium [Moles/volume] in Serum or Plasma 2024-03-12 04:51:44 6 mEq/L F 3.5-5.5 GLOBULIN 2024-03-11 19:22:04 2.3 g/dL F 0.9-5.0 A/G RATIO 2024-03-11 19:22:04 1.9 Calc F 1.0-2.5 Lactate dehydrogenase [Enzymatic activity/volume] in Serum or Plasma 2024-03-11 19:21:20 172 U/L F 120.0-246.0 Bicarbonate [Moles/volume] in Serum or Plasma 2024-03-11 19:21:20 28 mEq/L F 20.0-31.0 Albumin [Mass/volume] in Serum or Plasma by Bromocresol green (BCG) dye binding method 2024-03-11 19:21:20 4.3 g/dL F 3.4-4.8 Protein [Mass/volume] in Serum or Plasma 2024-03-11 19:21:20 6.6 g/dL F 5.7-8.2 Glucose [Mass/volume] in Serum or Plasma 2024-03-11 19:21:20 101 mg/dL F 70.0-99.0 GLOBULIN 2023-03-06 15:33:32 1.7 g/dL F 0.9-5.0 A/G RATIO 2023-03-06 15:33:32 2.3 Calc F 1.0-2.5 Lactate dehydrogenase [Enzymatic activity/volume] in Serum or Plasma 2023-03-06 15:33:27 223 U/L F 120.0-246.0 Bicarbonate [Moles/volume] in Serum or Plasma 2023-03-06 15:33:27 22 mEq/L F 20.0-31.0 Albumin [Mass/volume] in Serum or Plasma by Bromocresol green (BCG) dye binding method 2023-03-06 15:33:27 3.9 g/dL F 3.4-4.8 Potassium [Moles/volume] in Serum or Plasma 2023-03-06 15:33:27 6.5 mEq/L F 3.5-5.5 Protein [Mass/volume] in Serum or Plasma 2023-03-06 15:33:27 5.6 g/dL F 5.7-8.2 Glucose [Mass/volume] in Serum or Plasma 2023-03-06 15:33:27 139 mg/dL F 70.0-99.0 GLOBULIN 2022-08-08 17:20:21 1.6 g/dL F 0.9-5.0 A/G RATIO 2022-08-08 17:20:21 2.6 Calc F 1.0-2.5 Lactate dehydrogenase [Enzymatic activity/volume] in Serum or Plasma 2022-08-08 17:19:18 211 U/L F 120.0-246.0 Bicarbonate [Moles/volume] in Serum or Plasma 2022-08-08 17:19:18 25 mEq/L F 20.0-31.0 Albumin [Mass/volume] in Serum or Plasma by Bromocresol green (BCG) dye binding method 2022-08-08 17:19:18 4.1 g/dL F 3.4-4.8 Potassium [Moles/volume] in Serum or Plasma 2022-08-08 17:19:18 5.7 mEq/L F 3.5-5.5 Protein [Mass/volume] in Serum or Plasma 2022-08-08 17:19:18 5.7 g/dL F 5.7-8.2 Glucose [Mass/volume] in Serum or Plasma 2022-08-08 17:19:18 106 mg/dL F 70.0-99.0 GLOBULIN 2022-07-11 19:03:50 1.5 g/dL F 0.9-5.0 A/G RATIO 2022-07-11 19:03:50 2.7 Calc F 1.0-2.5 Lactate dehydrogenase [Enzymatic activity/volume] in Serum or Plasma 2022-07-11 19:03:41 213 U/L F 120.0-246.0 Bicarbonate [Moles/volume] in Serum or Plasma 2022-07-11 19:03:41 23 mEq/L F 20.0-31.0 Potassium [Moles/volume] in Serum or Plasma 2022-07-11 19:03:41 7.9 mEq/L F 3.5-5.5 Albumin [Mass/volume] in Serum or Plasma by Bromocresol green (BCG) dye binding method 2022-07-11 19:03:41 4.1 g/dL F 3.4-4.8 Protein [Mass/volume] in Serum or Plasma 2022-07-11 19:03:41 5.6 g/dL F 5.7-8.2 Glucose [Mass/volume] in Serum or Plasma 2022-07-11 19:03:41 119 mg/dL F 70.0-99.0 GLOBULIN 2022-06-13 16:49:39 1.6 g/dL F 0.9-5.0 A/G RATIO 2022-06-13 16:49:39 2.7 Calc F 1.0-2.5 Lactate dehydrogenase [Enzymatic activity/volume] in Serum or Plasma 2022-06-13 16:48:58 177 U/L F 120.0-246.0 Bicarbonate [Moles/volume] in Serum or Plasma 2022-06-13 16:48:58 24 mEq/L F 20.0-31.0 Albumin [Mass/volume] in Serum or Plasma by Bromocresol green (BCG) dye binding method 2022-06-13 16:48:58 4.3 g/dL F 3.4-4.8 Potassium [Moles/volume] in Serum or Plasma 2022-06-13 16:48:58 7.7 mEq/L F 3.5-5.5 Protein [Mass/volume] in Serum or Plasma 2022-06-13 16:48:58 5.9 g/dL F 5.7-8.2 Glucose [Mass/volume] in Serum or Plasma 2022-06-13 16:48:58 106 mg/dL F 70.0-99.0 GLOBULIN 2022-05-09 17:42:47 1.5 g/dL F 0.9-5.0 A/G RATIO 2022-05-09 17:42:47 2.7 Calc F 1.0-2.5 Lactate dehydrogenase [Enzymatic activity/volume] in Serum or Plasma 2022-05-09 17:42:11 177 U/L F 120.0-246.0 Bicarbonate [Moles/volume] in Serum or Plasma 2022-05-09 17:42:11 27 mEq/L F 20.0-31.0 Albumin [Mass/volume] in Serum or Plasma by Bromocresol green (BCG) dye binding method 2022-05-09 17:42:11 4.1 g/dL F 3.4-4.8 Protein [Mass/volume] in Serum or Plasma 2022-05-09 17:42:11 5.6 g/dL F 5.7-8.2 Potassium [Moles/volume] in Serum or Plasma 2022-05-09 17:42:09 6.6 mEq/L F 3.5-5.5 Glucose [Mass/volume] in Serum or Plasma 2022-05-09 17:42:09 115 mg/dL F 70.0-99.0 GLOBULIN 2022-04-15 08:37:53 F Canceled - Specimen not received 5 days past draw date A/G RATIO 2022-04-15 08:37:53 F Canceled - Specimen not received 5 days past draw date Potassium [Moles/volume] in Serum or Plasma 2022-04-15 08:04:54 F Canceled - Specimen not received 5 days past draw date Albumin [Mass/volume] in Serum or Plasma by Bromocresol green (BCG) dye binding method 2022-04-15 08:04:54 F Canceled - Specimen not received 5 days past draw date Bicarbonate [Moles/volume] in Serum or Plasma 2022-04-15 08:04:54 F Canceled - Specimen not received 5 days past draw date Glucose [Mass/volume] in Serum or Plasma 2022-04-15 08:04:54 F Canceled - Specimen not received 5 days past draw date Lactate dehydrogenase [Enzymatic activity/volume] in Serum or Plasma 2022-04-15 08:04:54 F Canceled - Specimen not received 5 days past draw date Protein [Mass/volume] in Serum or Plasma 2022-04-15 08:04:54 F Canceled - Specimen not received 5 days past draw date Encounters No encounter information to report Immunizations Ordered Immunization Name Filled Immunization Name Date Status Comments Refusal Reason Influenza, MDCK, trivalent, preservative 2024-01-26 14:11:03 TST-PPD intradermal 2023-12-10 13:30:00 TST-PPD intradermal 2022-11-25 14:10:55 Covid-19 Vaccination 2020-07-05 08:00:00 Plan of Treatment Planned Activity Provider Planned Date Details Commen ts Diagnostic Test Pending Merlin Quezada 2023-01-01 18:07:15 Alanine aminotransferase [Enzymatic activity/volume] in Serum or Plasma [code = 1742-6] Diagnostic Test Pending Merlin Quezada 2023-05-03 06:00:00 Hemoglobin [Mass/volume] in Blood [code = 718-7] Diagnostic Test Pending Merlin Quezada 2022-04-20 06:00:00 Aluminum [Mass/volume] in Serum or Plasma [code = 5574-9] Diagnostic Test Pending Merlin Quezada 2022-04-20 06:00:00 Parathyrin.intact [Mass/volume] in Serum or Plasma [code = 2731-8] Diagnostic Test Pending Merlin Quezada 2022-03-30 06:00:00 Albumin [Mass/volume] in Serum or Plasma by Bromocresol green (BCG) dye binding method [code = 91163-0] Diagnostic Test Pending Merlin Quezada 2022-03-30 06:00:00 Creatinine [Mass/volume] in Serum or Plasma [code = 2160-0] Diagnostic Test Pending Merlin Pastorcell 2023-08-21 06:32:54 Ferritin [Mass/volume] in Serum or Plasma [code = 2276-4] Diagnostic Test Pending Merlin Gregorio Pastorcell 2022-03-30 06:00:00 Sodium [Moles/volume] in Serum or Plasma [code = 2951-2] Diagnostic Test Pending Merlin Gregorio Pastorcell 2022-03-30 06:00:00 Glucose [Mass/volume] in Serum or Plasma [code = 2345-7] Diagnostic Test Pending Merlin Quezada [facility] 2024-05-16 20:36:51 In-Center Hemodialysis Treatment [code = NKO565] Diet Order Merlin Quezada [facility] March 24, 2022 Diet Calorie 30 kcal/kg Fluid Value 1000 mL/d Phosphorus Value 660 mg/d Potassium Value 2000 mg/d Protein Value 1.2 gm/kg Sodium Value 2000 mg/d Calculated Weight 55 kg
[2024-06-30 00:52] LABS: Basophils Percent Auto 0.7 % (0.2-1.2); Eosinophils Absolute Auto 0.2 K/mm3 (0-0.3); Eosinophils Percent Auto 2.9 % (0-4.4); Hematocrit 33.9 % (42.0-52.0); Immature Granulocyte Absolute 0.02 K/mm3 (0.00-0.031); Immature Granulocyte Percent A 0.4 % (0-0.5); Lymphocytes Absolute Auto 0.93 K/mm3 (0.9-3.2); Lymphocytes Percent Auto 16.9 % (18.3-44.2); Mean Corpuscular HGB Conc 32.4 g/dl (32-36); Mean Corpuscular Hemoglobin 28.7 pg (26-34); Mean Corpuscular Volume 88.5 fl (80-100); Mean Platelet Volume 9.9 fl (7.4-10.4); Monocytes Absolute Auto 0.7 K/mm3 (0.1-0.6); Monocytes Percent Auto 11.8 % (2.6-8.5); Neutrophils Absolute Auto 3.7 K/mm3 (1.3-6.7); Neutrophils Percent Auto 67.3 % (45.5-73.1); Platelet Count Result 134 k/mm3 (150-375); Red Blood Count 3.83 M/mm3 (4.6-6.20); Red Cell Distribution Width 15.6 % (11.5-14.5); White Blood Count 5.5 K/mm3 (4.5-10.0)
[2024-06-30 01:02] LABS: Alanine Aminotransferase 10 U/L (6-50); Albumin Level 4.3 g/dL (3.5-5.1); Alkaline Phosphatase 98 U/L (38-126); Anion Gap 20 mmol/L (4-12); Aspartate Amino Transferase 11 U/L (17-59); Bilirubin,Total 0.7 mg/dL (0.2-1.3); Blood Urea Nitrogen 61 mg/dL (9-20); Carbon Dioxide 25 mmol/L (22-30); Chloride 94 mmol/L (98-107); Estimated CRCL calculation 7 ml/min; Estimated Glomerular Filt Rate 6; Glucose 95 mg/dL (65-110); Potassium 5.9 mmol/L (3.4-5.0); Sodium 139 mmol/L (137-145)
[2024-06-30 01:26] LABS: Influenza A QL RT-PCR Negative (Negative); Influenza B QL RT-PCR Negative (Negative); RSV RNA, RT-PCR Negative (Negative); SARS-CoV-2 RNA PCR Negative (Negative)
[2024-06-30 01:43] VITALS: O2SAT 98
--- NOTE | 2024-06-30 01:49 | ED_ITS ---
HPI - General Adult General Chief complaint: Shortness of Breath/Dyspnea Stated complaint: sob, dizzy, light headed Time Seen by Provider: 06/30/24 01:34 History of Present Illness HPI narrative: Patient is a 34-year-old male who presents the emergency department this evening with multiple complaints. Mainly, patient was concerned that his blood pressure has been running high. Patient is an end-stage renal disease patient on hemodialysis Thursday, , Thursday and states that when he is going into his dialysis sessions his blood pressure tends to be high but after his sessions it normalizes. Patient is on 2 different blood pressure medications and states that he has been taking them regularly. Admits that he has been under a lot of stress lately and has not been sleeping well which could be contributing to his symptoms. Otherwise he is currently denying any additional symptoms or concerns at this time. Related Data Home Medications ?Medication ?Instructions ?Recorded ?Confirmed ?Last Taken ?Type acetaminophen 500 mg tablet 500 mg PO Q6H PRN Pain 10/16/22 02/14/24 Unknown History calcitriol 0.5 mcg capsule 0.5 mcg PO 3XW 10/16/22 02/14/24 Unknown History carvedilol 25 mg tablet 25 mg PO BID 10/16/22 02/14/24 Unknown History cholecalciferol (vitamin D3) 50 50 mcg PO DAILY 10/16/22 02/14/24 Unknown History mcg (2,000 unit) capsule epoetin beta, methoxy peg 100 100 mcg subcut .2 times a month 10/16/22 02/14/24 Unknown History mcg/0.3 mL injection syringe (Mircera) heparin (porcine) 1,000 unit/mL 600 unit IV .every dialysis 10/16/22 02/14/24 Unknown History injection solution heparin (porcine) 5,000 unit/mL 1,600 unit IV .every dialysis 10/16/22 02/14/24 Unknown History injection solution iron sucrose 50 mg iron/2.5 mL 50 mg IV WEEKLY 10/16/22 02/14/24 Unknown History intravenous solution (Venofer) lactulose 10 gram/15 mL oral 10 g PO DAILY 10/16/22 02/14/24 Unknown History solution melatonin 5 mg capsule 5 mg PO QHS 10/16/22 02/14/24 Unknown History minoxidil 2.5 mg tablet 2.5 mg PO BID 10/16/22 02/14/24 Unknown History mirtazapine 30 mg tablet 30 mg PO QHS 10/16/22 02/14/24 Unknown History ondansetron HCl 4 mg tablet 4 mg PO Q4H PRN Nausea 10/16/22 02/14/24 Unknown History polyethylene glycol 3350 17 17 g PO DAILY PRN Nausea 10/16/22 02/14/24 Unknown History gram/dose oral powder sennosides 8.6 mg-docusate sodium 1 tab-cap PO DAILY 10/16/22 02/14/24 Unknown History 50 mg tablet (Senexon-S) sertraline 100 mg tablet 100 mg PO DAILY 10/16/22 02/14/24 Unknown History sodium zirconium cyclosilicate 10 10 g PO DAILY 10/16/22 02/14/24 Unknown History gram oral powder packet (Lokelma) sucroferric oxyhydroxide 500 mg 1,000 mg PO TID 10/16/22 02/14/24 Unknown History chewable tablet (Velphoro) trazodone 50 mg tablet 50 mg PO HS 02/14/24 02/14/24 Unknown History Allergies Allergy/AdvReac Type Severity Reaction Status Date / Time No Known Allergies Allergy Verified 02/14/24 17:07 Review of Systems 2 Review of Systems: All systems are reviewed and are negative unless stated otherwise in the HPI. [facility] Past Medical History Medical History Ankle fracture, right HTN (hypertension) Depression Mercer syndrome Kidney failure Surgical History Surgical History History of hand surgery (~1990) History of open heart surgery Repair of a hole in his heart History of open reduction and internal fixation (ORIF) procedure Right ankle S/P dialysis catheter insertion History of kidney surgery Kidney biopsy Family History Family History Father No problems noted. Mother No problems noted. Social History Social History Social History: 1 CUP OF CAFFEINE PER DAY Smoking packs per day: 1 Smoking cigarettes per day: 20.0 Years smoked: 10 Smoking pack-years: 10.00 Smoking status: Current every day smoker Alcohol intake: current Alcohol use details: Drinks once monthly Substance use: current Substance use type: marijuana Other substance usage details: use marijuana three times per week Lack of Transportation: No Lack of Food: Never True Current Housing: I Have Housing Concerned About Future Housing: No Difficulty Paying Gas/Electric Bills: No Difficulty Paying for Meds: No Currently Unemployed: No Education: High School Diploma/GED Difficulty w/ Childcare or Family Care: No Exam 2 Narrative: General: Alert, awake, afebrile, in no distress, pleasant male. HEENT: PERRL, no rhinorrhea, no post nasal drip, oropharynx clear. Neck: Trachea midline, no JVD, no lymphadenopathy. Cardiovascular: Regular rate and rhythm, no murmurs, rubs or gallops, no peripheral edema. Respiratory: Clear to auscultation bilaterally, no tachypnea, no wheezing, no rhonchi, no rubs, no respiratory distress. Abdomen: Soft, nontender, nondistended, no rebound, no guarding, no peritoneal signs. Musculoskeletal: No joint swelling or deformity, normal muscle tone. Skin: No rashes or petechia, no signs of infection. Psychiatric: Alert and oriented, normal behavior and judgment for situation. Neurological: Alert and oriented to person, place, and time. Follows all commands. No focal deficits, speech is clear and fluent. Course Vital Signs Vital signs: Vital Signs Temperature 97.8 F 06/30/24 00:25 Pulse Rate 64 06/30/24 00:25 Respiratory Rate 16 06/30/24 00:25 Blood Pressure 190/107 H 06/30/24 00:25 Pulse Oximetry 98 06/30/24 00:25 Oxygen Delivery Room Air 06/30/24 00:25 Temperature 97.8 F 06/30/24 00:25 Pulse Rate 64 06/30/24 00:25 Respiratory Rate 16 06/30/24 00:25 Blood Pressure 190/107 H 06/30/24 00:25 Pulse Oximetry 98 06/30/24 01:43 Oxygen Delivery Room Air 06/30/24 01:43 Medical Decision Making MDM Narrative Medical decision making narrative: The patient was evaluated by myself in the emergency department. History is obtained from patient who is an independent historian and physical exam was performed. External medical records were reviewed at this time. IV was established and pertinent tests were ordered. EKG was obtained which revealed sinus bradycardia rate of 59 beats per minute, no evidence of acute ischemia. EKG was independently interpreted by me and is currently pending official cardiology read. Laboratory results obtained revealing a creatinine of 9.58, potassium 5.9 otherwise unremarkable. Patient is on HD Thursday, and Thursday and has his next dialysis session today. Viral swabs noted to be negative for COVID/influenza/RSV. Imaging studies obtained included CXR which was independently interpreted by me revealing no acute cardiopulmonary process, which is pending final radiology interpretation. Differential diagnosis considerations include acute viral syndrome, stress reaction, hypertensive urgency versus emergency. Comorbidities impacting this visit include history of end-stage renal disease on HD. I have evaluated and discussed social determinants of health with the patient that could potentially impact subsequent diagnosis and treatment plans. On repeat assessment of the patient, reevaluation revealed that the patient is doing well and is in no acute distress. Patient symptoms have improved since he arrived to our emergency department. Repeat vital signs were all reviewed and noted to be stable with a current blood pressure of 157/90 mmHg. Differential diagnosis and treatment plan were discussed with the patient at bedside. Patient agrees with discussion and after shared medical decision making agrees with discharge. All questions were answered to the patient's satisfaction. Patient will follow up with his PCP in 3-5 days. Patient was provided with strict return precautions and instructed to return to the emergency department if any new or worsening symptoms develop. The patient was discharged in stable condition. Vital Signs Vital Signs: Vital Signs Temperature 97.8 F 06/30/24 00:25 Pulse Rate 64 06/30/24 00:25 Respiratory Rate 16 06/30/24 00:25 Blood Pressure 190/107 H 06/30/24 00:25 Pulse Oximetry 98 06/30/24 00:25 Oxygen Delivery Room Air 06/30/24 00:25 Temperature 97.8 F 06/30/24 00:25 Pulse Rate 64 06/30/24 00:25 Respiratory Rate 16 06/30/24 00:25 Blood Pressure 190/107 H 06/30/24 00:25 Pulse Oximetry 98 06/30/24 01:43 Oxygen Delivery Room Air 06/30/24 01:43 Lab Data 06/30/24 00:36 06/30/24 00:36 Labs: Lab Results 06/30/24 Range/Units 00:36 WBC 5.5 (4.5-10.0) K/mm3 RBC 3.83 L (4.6-6.20) M/mm3 Hgb 11.0 L (14.0-18.0) g/dL Hct 33.9 L (42.0-52.0) % MCV 88.5 (80-100) fl MCH 28.7 (26-34) pg MCHC 32.4 (32-36) g/dl RDW 15.6 H (11.5-14.5) % Plt Count 134 L (150-375) k/mm3 MPV 9.9 (7.4-10.4) fl Immature Gran % (Auto) 0.4 (0-0.5) % Neut % (Auto) 67.3 (45.5-73.1) % Lymph % (Auto) 16.9 L (18.3-44.2) % [place]ot % (Auto) 11.8 H (2.6-8.5) % Eos % (Auto) 2.9 (0-4.4) % Baso % (Auto) 0.7 (0.2-1.2) % Lymph # (Auto) 0.93 (0.9-3.2) K/mm3 [place] # (Auto) 0.7 H (0.1-0.6) K/mm3 Eos # (Auto) 0.2 (0-0.3) K/mm3 Baso # (Auto) 0.0 (0.0-0.1) K/mm3 Abs Immat Gran (auto) 0.02 (0.00-0.031) K/mm3 Absolute Neuts (auto) 3.7 (1.3-6.7) K/mm3 Absolute Nucleated RBC 0.000 (0.0-0.012) K/mm3 Nucleated RBC % 0.0 (0.0-0.2) % Sodium 139 (137-145) mmol/L Potassium 5.9 H (3.4-5.0) mmol/L Chloride 94 L (98-107) mmol/L Carbon Dioxide 25 (22-30) mmol/L Anion Gap 20 H (4-12) mmol/L BUN 61 H (9-20) mg/dL Creatinine 9.58 H (0.7-1.3) mg/dL Estim Creat Clear Calc 7 ml/min Estimated GFR 6 L (59 - ) Glucose 95 (65-110) mg/dL Calcium 10.0 (8.4-10.2) mg/dL Total Bilirubin 0.7 (0.2-1.3) mg/dL AST 11 L (17-59) U/L ALT 10 (6-50) U/L Alkaline Phosphatase 98 (38-126) U/L Total Protein 7.0 (6.3-8.2) g/dL Albumin 4.3 (3.5-5.1) g/dL Influenza A (RT-PCR) Negative (Negative) Influenza B (RT-PCR) Negative (Negative) RSV (RT-PCR) Negative (Negative) SARS-CoV-2 RNA (RT-PCR) Negative (Negative) Discharge Plan Discharge Clinical Impression: Hypertension, ESRD (end stage renal disease) on dialysis Patient Disposition: Home, Self-Care Condition: Improved Instructions: Antibiotic Form, Hypertension (ED) Additional Instructions: Please follow-up with your family doctor within the next 3-5 days as instructed. You were also instructed to monitor blood pressure at home by checking it same time every day in the morning and same time every day and night and to keep a blood pressure log to take with you to your family doctor's appointment as you may need to have your blood pressure medications to be adjusted. Return to the ED if any new or worsening symptoms develop. Patient Language: Kazakh Prescriptions: No Action trazodone 50 mg tablet 50 mg PO HS clindamycin HCl 300 mg capsule 300 mg PO TID Qty: 30 0RF clindamycin HCl 300 mg capsule 300 mg PO TID Qty: 30 0RF carvedilol 25 mg tablet 25 mg PO BID Rx Instructions: must administer with a meal/food cholecalciferol (vitamin D3) 50 mcg (2,000 unit) capsule 50 mcg PO DAILY lactulose 10 gram/15 mL solution 10 g PO DAILY sertraline 100 mg tablet 100 mg PO DAILY Velphoro 500 mg tablet,chewable 1,000 mg PO TID acetaminophen 500 mg tablet 500 mg PO Q6H PRN (Reason: Pain) ondansetron HCl 4 mg tablet 4 mg PO Q4H PRN (Reason: Nausea) polyethylene glycol 3350 17 gram/dose powder 17 g PO DAILY PRN (Reason: Nausea) calcitriol 0.5 mcg capsule 0.5 mcg PO 3XW Rx Instructions: administer after dialysis on dialysis days Lokelma 10 gram powder in packet 10 g PO DAILY melatonin 5 mg capsule 5 mg PO QHS minoxidil 2.5 mg tablet 2.5 mg PO BID mirtazapine 30 mg tablet 30 mg PO QHS sennosides-docusate sodium [Senexon-S] 8.6-50 mg tablet 1 tab-cap PO DAILY Venofer 50 mg iron/2.5 mL solution 50 mg IV WEEKLY Rx Instructions: administer over 2-5 mins Mircera 100 mcg/0.3 mL syringe 100 mcg subcut .2 times a month heparin (porcine) 5,000 unit/mL solution 1,600 unit IV .every dialysis heparin (porcine) 1,000 unit/mL solution 600 unit IV .every dialysis Follow-up/Referrals: Galen Hunter MD [Primary Care Provider] - 3 Days Time of Disposition: 01:50
--- OUTSIDE RECORDS SUMMARY | 2024-06-30 02:00 | XMS_ITS | Clinical Summary ---
Author Organization [facility] Address [address] [place] [address] Care Team Providers Care Bioinformatics Specialist Name Role Phone Bernadette Robertson MD Primary Care Provider [phone] Source Comments [facility],non-owned Affiliates and Associated Physician Practices is amultiple site organization consisting of ambulatory clinics and hospital sitesin [place], [place], [place] and [place]. This disclosure is being madepursuant to the Care Everywhere program and may not contain all information available regarding this patient. Last updated 18.[facility] Allergies No known active allergies Medications * [...] 05/15/2021 Overview (05/15/2021): Chantel Kim 1990 Referring Short Filler Bunch Machine Operator: Merlin Quezada Listing Date: Dialysis Info: Type: Time: 746 days ( 04/30/2019) Blood Type: O POS Body mass index is 18.42 kg/m . 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 Tash Saucedo once a month 5-6 months. Difficulty swallowing difficult swallowing large pills. 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 Suicidal ideation Suicide attempt 2016 was not hospitalized. Past Surgical History: Procedure Laterality Date Heart Valve Surgery 1993 born with hole in heart, had open heart surgery at [facility]. No longer follows with a plan examiner INSERTION DIALYSIS CATHETER N/A 03/12/2021 N/A; LAPAROSCOPIC PLACEMENT PERITONEAL DIALYSIS CATHETER AND LYSIS OF ADHESIONS IR PERITONEAL TUNNEL CATH PLACE 08/22/[address] 08/22/2020 Efra Ontiveros MD [facility] IV[facility] IR PERITONEAL TUNNEL CATH PLACE 02/25/[address] CATH [address] 02/25/2021 Efra Ontiveros MD [facility] IVR REMOVAL FOREIGN BODY N/A 06/30/2020 N/A; PD Catheter Removal Renal Biopsy 2019 [facility] Renal [facility] Social History Socioeconomic History Marital status: Single [...] relationships, depression, and insecurities. Patient states to [facility] he has suicidal ideations. Patient is not under the care of a counselor, therapist, or psychiatrist. Patient states he is seeing a counselor, Dr. Tash Saucedo. Upon further research, she is a BECK OPERATOR who prescribes his medications. Patient states he went to [facility] in [place] but thinks they dropped them because he missed an appointment. Patient states he has MDD. Patient questioned the assessment questions. When OPERATOR HELPER mentioned obtaining records from [facility], patient asked why it was necessary. Patient felt those records were personal. Coping style, skills, and adaptation to illness: Patient sleeps to cope with stress. Patient states he uses melatonin and edibles to help him sleep. Patient states some of his stressors are the future, the past, and transplant Clinical Social Work Impression: It is the impression of this mental health social worker that Chantel Kim has several [...] the future, the past, and transplant. Plan: technicians and trades workers to provide supportive services as needed. Patient appears to be a reasonable candidate for transplant from a psychosocial perspective. Post transplant arrangement forms are needed prior to being listed. Psychiatric Consult Recommended: Yes related to:Substance Abuse, Unstable Mental Health, Coping Strategies and Comprehension Concerns. 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 [...] this topic Medical Devices Implanted Type Area Wet Primer Powder Blender Device Identifier Shelf Expiration Date Model / Serial / Lot Kit Durathane Drflw Embosafe Chrnc Dlys Implanted:Qty: 1 on 06/29/2020 at [facility] Right: Chest [employer] 08/17/2022 [id number] / / [id number] Kit Durathane Drflw Embosafe Chrnc Dlys Implanted:Qty: 1 on 01/17/2021 at [facility] Right: Chest [employer] 05/20/2023 [id number] / / [id number] Description: Peritoneal Dialysis Catheter Implanted:Qty: 1 on 03/12/2021 by Cr Titus MD at [facility] N/A: Abdomen 05/17/2024 [id number] / / [id number] Procedures Procedure Name Priority Date/Time Associated Diagnosis Comments HEPATITIS C ANTIBODY Routine 05/01/2021 9:21 AM [facility] Pre-transplant evaluation for kidney transplant HIV-1 HIV-2 ANTIBODY + HIV P24 AG PANEL Routine 05/01/2021 9:21 AM [facility] Pre-transplant evaluation for kidney transplant from Last 3 Months or Most Recently Relevant to Health Maintenance Results * HIV-1 HIV-2 ANTIBODY + HIV P24 AG PANEL (05/01/2021 9:21 AM [facility]) HIV Antigen/Antibod y 1 & 2 Non-reacti ve Non-react jammie 05/01/2021 11:08 AM [facility] Comment:No Laboratory eviden ce of HIV infection. Blood BLOOD SPECIMEN / Unknown Lab Venipuncture / Unknown 05/01/2021 9:21 AM [facility] 05/01/2021 9:48 AM [facility] Alexandra Ramachandran MD LAB - CHEMISTRY [facility]RISTA CAREY Performing Organization Address City/[facility]/ZIP Co de Phone Number [address] [address], [facility] [phone] * HEPATITIS C ANTIBODY (05/01/2021 9:21 AM [facility]) Hepatitis C Antibody Non-react jammie Non-reac tive 05/01/2021 11:08 AM [facility] Comment:Hepatitis C Antibody screen indicates no serologic evidence of past or current infection with Hepatitis C Virus. Patients with unexplained liver disease who are immunocompromised or suspected of having acute Hepatitis C infection may benefit from Nucleic Acid Test ([place]) for Hepatitis C Viral RNA to confirm Hepatitis C status. Blood BLOOD SPECIMEN / Unknown Lab Venipuncture / Unknown 05/01/2021 9:21 AM [facility] 05/01/2021 9:48 AM [facility] Alexandra Ramachandran MD LAB - CHEMISTRY KRISTA CAREY [address] [address], [facility] [phone] from Last 3 Months or Most Recently Relevant to Health Maintenance Advance Directives * Full Code (Latest Code Status on File) Date Activated Date Inactivated Comments 01/14/2021 12:11 AM 01/19/2021 2:47 PM * Full Code Date Activated Date Inactivated Comments 06/28/2020 3:21 PM 07/02/2020 2:26 PM Care Teams Bioinformatics Specialist Relationship Specialty Start Date End Date Bernadette Robertson MD [address] [facility] [facility] [id number] PCP - General 11/07/21
--- OUTSIDE RECORDS SUMMARY | 2024-06-30 02:00 | XMS_ITS | Encounter Summary ---
Author Organization [facility] Address [address] [place] [address] Care Team Providers Care Global Regulatory Lead Name Role Phone Bernadette Robertson MD Primary Care Provider [phone] Encounter Details Date Type Department Care Team (Late st Contact Info) Description 08/09/2021 Telephone [facility] [address] [place] [address] Cr Titus MD [address] [phone] Social History Tobacco Use Types Packs/Day Years [...] on filedocumented in this encounter Care Teams Global Regulatory Lead Relationship Specialty Start Date End Date Bernadette Robertson MD [address] [place] [id number] PCP - General 11/07/21 documented as of this encounter
--- OUTSIDE RECORDS SUMMARY | 2024-06-30 02:00 | XMS_ITS | Encounter Summary ---
Author Organization [facility] Address [address] [place] [address] Care Team Providers Care Quality Reviewer Name Role Phone Bernadette Robertson MD Primary Care Provider [phone] Bernadette Robertson MD Primary Care Provider [phone] Encounter Details Date Type Department Care Team (Late st Contact Info) Description 02/28/2021 Telephone [facility] [address] [place] [address] Cr Titus MD [address] [phone] Social History Tobacco Use Types Packs/Day Years [...] on filedocumented in this encounter Care Teams Quality Reviewer Relationship Specialty Start Date End Date Bernadette Robertson MD [address] [facility] [address] PCP - General 07/02/20 03/04/21 Bernadette Robertson MD [address] [facility] [address] PCP - General 11/07/21 documented as of this encounter
--- OUTSIDE RECORDS SUMMARY | 2024-06-30 02:00 | XMS_ITS | Patient Health Summary ---
Author Organization [facility] Address [address] [place] [address] Care Team Providers Care Mason Helper Name Role Phone Bernadette Robertson MD Primary Care Provider [phone] Note from [facility],non-owned Affiliates and Associated Physician Practices is amultiple site organization consisting of ambulatory clinics and hospital sitesin [place], [place], [place] and [place]. This disclosure is being madepursuant to the Care Everywhere program and may not contain all information available regarding this patient. Last updated 18.[facility] Allergies No known active allergies Medications [...] PM CDT Medical Devices Implanted Type Area Family Resource Specialist Device Identifier Shelf Expiration Date Model / Serial / Lot Kit Durathane Drflw Embosafe Chrnc Dlys Implanted:Qty: 1 on 06/29/2020 at [facility] Right: Chest Wall [employer] 08/17/2022 [id number] / / [id number] Kerwin Bellfe Chrnc Dlys Implanted:Qty: 1 on 01/17/2021 at [facility] Right: Chest Wall [employer] 05/20/2023 [id number] / / [id number] Description: Peritoneal Dialysis Catheter Implanted:Qty: 1 on 03/12/2021 by Cr Titus MD at [facility] N/A: Abdomen 05/17/2024 [id number] / / [id number] Procedures * IR CENTRAL LINE REMOVAL(Performed 03/11/2022) Performed for End stage renal disease (HCC) * VAS DIALYSIS EXIST ACCESS SCAN(Performed 02/04/2022) Performed for Status post creation of arteriovenous fistula, End-stage renal disease ([facility]) * CREATION ARTERIOVENOUS (AV) FISTULA WITH/WITHOUT GRAFT(Performed 12/13/2021) Performed for End stage renal disease ([facility]) * POTASSIUM WHOLE BLD(Performed 12/13/2021) Performed for End-stage renal disease ([facility]), Pre-op evaluation * CARDIAC EKG ORDER(Performed 11/07/2021) [...] HEMODIALYSIS(Performed 09/27/2021) Performed for End-stage renal disease ([facility]) * CULTURE FUNGUS OTHER+FUNGUS SMEAR(Performed 07/23/2021) Performed for Peritonitis associated with peritoneal dialysis, subsequent encounter ([facility]) * CULTURE ANAEROBE(Performed 07/23/2021) Performed for Peritonitis associated with peritoneal dialysis, subsequent encounter ([facility]) * CULTURE TISSUE+GRAM STAIN(Performed 07/23/2021) Performed for Peritonitis associated with peritoneal dialysis, subsequent encounter ([facility]) * PATHOLOGY TISSUE(Performed 07/23/2021) Performed for ESRD (end stage renal disease) ([facility]) * CULTURE FUNGUS OTHER+FUNGUS SMEAR(Performed 07/23/2021) Performed for Abdominal pain, generalized * CULTURE ANAEROBE(Performed 07/23/2021) Performed for Abdominal pain, generalized * CULTURE TISSUE+GRAM STAIN(Performed 07/23/2021) Performed for Abdominal pain, generalized * CT LAP INSERT TUNNEL IP CATH(Performed 07/23/2021) Performed for ESRD (end stage renal disease) ([facility]) * ENDOTRACHEAL TUBE NOTE(Performed 07/23/2021) * BASIC METABOLIC PANEL (CALCIUM TOTAL)(Performed 07/23/2021) Performed for Pre-transplant evaluation for kidney transplant * PHOSPHORUS BLOOD(Performed 07/23/2021) Performed for Preoperative examination * CBC W AUTO DIFFERENTIAL(Performed 07/23/2021) Performed for Preoperative examination * CT LAP INSERT TUNNEL IP CATH(Performed 06/11/2021) Performed for Disorder of peritoneal dialysis catheter, initial encounter * ENDOTRACHEAL TUBE NOTE(Performed 06/11/2021) * CBC W/O DIFFERENTIAL(Performed 06/11/2021) Performed for End-stage renal disease ([facility]) * BASIC METABOLIC PANEL (CALCIUM TOTAL)(Performed 06/11/2021) Performed for End-stage renal disease ([facility]) * CARDIAC EKG ORDER(Performed 05/02/2021) * URINALYSIS [...] 03/15/2021) * ENDOTRACHEAL TUBE NOTE(Performed 03/12/2021) * CT LAP INSERT TUNNEL IP CATH(Performed 03/12/2021) Performed for ESRD (end stage renal disease) ([facility]) * POTASSIUM WHOLE BLD(Performed 03/12/2021) Performed for [...] Performed for ESRD (end stage renal disease) ([facility]) * MAGNESIUM BLOOD(Performed 01/19/2021) Performed for End-stage [...] BODY (ANY AREA)(Performed 06/30/2020) Performed for Peritonitis ([facility]) * PHOSPHORUS BLOOD(Performed 06/30/2020) * MAGNESIUM BLOOD(Performed 06/30/2020) * BASIC METABOLIC PANEL (CALCIUM TOTAL)(Performed 06/30/2020) * CBC W/O DIFFERENTIAL(Performed 06/30/2020) * TYPE + SCREEN PANEL(Performed 06/29/2020) * CULTURE BLOOD FUNGUS(Performed 06/29/2020) * IR CENTRAL LINE INSERT TUNNEL(Performed 06/29/2020) Performed for Peritonitis associated with peritoneal dialysis, initial encounter ([facility]) * CT ABDOMEN PELVIS WO CONTRAST(Performed 06/29/2020) Performed for Fever, unspecified fever cause, Peritonitis associated with peritoneal dialysis, initial encounter ([facility]) * HEMODIALYSIS INPATIENT(Performed 06/29/2020) * CARDIAC EKG [...] Peritonitis associated with peritoneal dialysis, initial encounter ([facility]), Fever, unspecified fever cause * TROPONIN I(Performed [...] IR CENTRAL LINE REMOVAL (03/11/2022 11:33 AM SUPERVISOR [employer] PROCESSING) Only the most recent of3 resultswithin the time period is included. Anatomical Region Laterality Modality X-Ray Angiograph y Narrative 03/11/2022 11:23 AM SUPERVISOR [employer] PROCESSING Obinna Hassan MD 03/11/2022 11:30 AM Shaggy Daniel [id number] Interventional Nephrology Procedure Date: 03/11/2022 Attending Surgeon and performing the procedure: Obinna Hassan MD customer service operator: Giancarlo Huang MD Brief history and [...] PLACEMENT: REMOVAL OF TUNNELED CENTRALLY INSERTED CVC; [id number] Findings: 1. A 19 cm tip to [...] Sincerely, Obinna Hassan MD 03/11/2022 11:24 AM [facility] VAC 395 - [phone] Merlin Quezada MD [facility] Merlin Quezada MD IR ORDERABLES * [...] - 5.5 mmol/L 12/13/2021 6:49 AM CDT [facility] Blood WHOLE BLOOD SPECIMEN / Unknown Venipuncture / Unknown 12/13/2021 6:36 AM CDT 12/13/2021 6:40 AM CDT Valarie Henry DETECTIVE AUTOMOBILE SECTION-SENIOR ORACLE DATABASE DEVELOPER LAB - BENITA HOLLIE ORDERABLES [address] [address], [facility] [phone] * CARDIAC EKG ORDER (11/07/2021 11:57 AM [...] - 115 mg/dL 11/07/2021 6:28 AM CDT [facility] Specimen Type Cap Fingerstick 2021 6:28 AM CDT [facility] Blood BLOOD SPECIMEN / Unknown 11/06/2021 3:00 PM CDT 11/07/2021 6:28 AM CDT Yvonne Gordon MD LAB - POINT OF CARE ORDERABLES [facility] [address] [place] [address], [facility] [phone] * (ABNORMAL) BASIC METABOLIC PANEL (CALCIUM TOTAL) (11/06/2021 12:43 PM CDT) Only the most recent of11 resultswithin the time period is included. BUN 38(H) 7 - 26 mg/dL 11/06/2021 1:17 PM [facility] Creatinine 8.92(H) 0.71 - 1.16 mg/dL 11/06/2021 1:17 PM [facility] Sodium 141 136 - 145 mmol/L 11/06/2021 1:17 PM [facility] Potassium 4.4 3.5 - 4.5 mmol/L 11/06/2021 1:17 PM [facility] Chloride 99 98 - 107 mmol/L 11/06/2021 1:17 PM [facility] CO2 26 22 - 29 mmol/L 11/06/2021 1:17 PM [facility] Glucose 183(H) 70 - 115 mg/dL 11/06/2021 1:17 PM [facility] Calcium 9.8 8.4 - 10.2 mg/dL 11/06/2021 1:17 PM [facility] Anion Gap 20(H) 8 - 18 11/06/2021 1:17 PM [facility] BUN/Creatinine Ratio 4(L) 7 - 23 11/06/2021 1:17 PM [facility] Osmolality Calculated 306(H) 270 - 300 mOsm/kg 11/06/2021 1:17 PM [facility] eGFR by CKD-EPI 7(L) >=90 mL/min/1.7 3 m2 11/06/2021 1:17 PM [facility] Blood BLOOD SPECIMEN / Unknown Venipuncture / Unknown 11/06/2021 12:43 PM CDT 11/06/2021 12:46 PM CDT Yuan Sorto PA-C LAB - CHEM ISTRY ORDERABLES [facility] [address] [place] [address], [facility] [phone] * EKG 12-LEAD (11/06/2021 12:26 PM CDT) Only the most recent of5 resultswithin the time period is included. Ventricular Rate 74 BPM [facility] Atrial Rate 74 BPM [facility] P-R Interval 114 ms [facility] QRS Duration ms 90 ms [facility] Q-T Interval ms 372 ms [facility] QTC Calculation (Bezet) 412 ms [facility] Calculated P [place] -4 degrees [facility] Calculated R [place] -9 degrees [facility] Calculated T [place] 172 degrees [facility] Interpretation EKG NORMAL SINUS RHYTHM left ventricular hypertrophy with repolarization abnormality ST & MARKED T WAVE ABNORMALITY, CONSIDER ANTEROLATERAL ISCHEMIA T wave inversion, consider inferior ischemia ABNORMAL ECG WHEN COMPARED WITH ECG OF 06-NOV-2021 08:53, NO SIGNIFICANT CHANGE WAS FOUND Confirmed by MD Libia., Taylor ([id number]) on 11/06/2021 10:35:30 PM [facility] 11/06/2021 12:2 6 PM CDT 11/06/2021 10:35 PM CDT Gagandeep Best MD ECG ORDERABLES Performing Organization Address [facility] de Phone Number [facility] * (ABNORMAL) TROPONIN I (11/02/2021 3:16 AM CDT) Only the most recent of8 resultswithin the time period is included. [facility] Troponin I 0.079(H) <0.032 ng/mL 11/02/2021 3:57 AM CDT [facility] Blood BLOOD SPECIMEN / Unknown Venipuncture / Unknown 11/02/2021 3:16 AM CDT 11/02/2021 3:22 AM CDT Jessica Chan MD LAB - CHEMISTRY KRISTA CAREY Performing Organization Address [facility]/ZIP Co de Phone Number [facility] [address] [place] [address] [phone] * (ABNORMAL) URINALYSIS REFLEX TO MICROSCOPIC NO CULTURE (11/01/2021 9:22 PM CDT) Color UA Straw Straw, Yellow 11/01/2021 10:07 PM [facility] Clarity UA Clear Clear 11/01/2021 10:07 PM [facility] Specific Saxis UA 1.008 1.005 - 1.030 11/01/2021 10:07 PM [facility] pH UA 9.0(H) 5.0 - 8.0 pH 11/01/2021 10:07 PM [facility] Protein UA 2+(A) Negative 11/01/2021 10:07 PM [facility] Glucose UA 1+(A) Negative 11/01/2021 10:07 PM [facility] Ketone UA Negative Negative 11/01/2021 10:07 PM [facility] Bilirubin UA Negative Negative 11/01/2021 10:07 PM [facility] Blood UA Negative Negative 11/01/2021 10:07 PM [facility] Nitrite UA Negative Negative 11/01/2021 10:07 PM [facility] Leukocyte Esterase Negative Negative 11/01/2021 10:07 PM [facility] Urobilinogen UA Negative Negative mg/dL 11/01/2021 10:07 PM [facility] RBC UA 3-5 None Seen, 0-2, 3-5 /HPF 11/01/2021 10:07 PM [facility] WBC UA 0-5 None Seen, 0-5 /HPF 11/01/2021 10:07 PM [facility] Squamous Epithelial Cells UA 0-2 None Seen, 0-2, 3-5 /HPF 11/01/2021 10:07 PM [facility] Urine URINE SPECIMEN OBTAINED BY CLEAN CATCH PROCEDURE / Unknown Collection / Unknown 11/01/2021 9:22 PM CDT 11/01/2021 9:34 PM T [facility] - 11/01/2021 10:07 PM [facility] Salo Griggs PA-C LAB - URINALYSIS ORD ERABLES [facility] [address] [place] [address], [facility] [phone] * (ABNORMAL) CBC W AUTO DIFFERENTIAL (11/01/2021 9:00 PM CDT) Only the most recent of11 resultswithin the time period is included. WBC 6.8 3.5 - 10.5 10 3/uL 11/01/2021 9:24 PM [facility] RBC 4.12(L) 4.30 - 5.70 10 6/uL 11/01/2021 9:24 PM [facility] Hemoglobin 12.9 12.0 - 17.6 g/dL 11/01/2021 9:24 PM [facility] Hematocrit 36.8 35.2 - 51.7 % 11/01/2021 9:24 PM [facility] MCV 89.3 80.7 - 98.3 fL 11/01/2021 9:24 PM T [facility] MCH 31.3 26.7 - 34.0 pg 11/01/2021 9:24 PM T [facility] MCHC 35.1 30.8 - 35.9 g/dL 11/01/2021 9:24 PM [facility] Platelet Count 133(L) 150 - 400 10 3/uL 11/01/2021 9:24 PM [facility] RDW-SD 42.6 36.0 - 50.0 fL 11/01/2021 9:24 PM [facility] RDW-CV 13.1 11.2 - 14.8 % 11/01/2021 9:24 PM [facility] MPV 9.9 9.4 - 12.9 fL 11/01/2021 9:24 PM [facility] nRBC Absolute 0.00 0 10 3/uL 11/01/2021 9:24 PM [facility] nRBC Auto 0.0 0 /100 WBC 11/01/2021 9:24 PM [facility] Neutrophils % 64.4 35.0 - 70.0 % 11/01/2021 9:24 PM [facility] Lymphocytes % 23.3 20.0 - 43.0 % 11/01/2021 9:24 PM [facility] Monocytes % 7.8 5.0 - 13.0 % 11/01/2021 9:24 PM [facility] Eosinophils % 3.5 0.0 - 6.0 % 11/01/2021 9:24 PM [facility] Basophil % 0.7 0.0 - 2.0 % 11/01/2021 9:24 PM [facility] Neutrophils Absolute 4.39 1.60 - 7.00 10 3/uL 11/01/2021 9:24 PM [facility] Lymphocyte Absolute 1.59 1.10 - 3.90 10 3/uL 11/01/2021 9:24 PM [facility] Monocytes Absolute 0.53 0.26 - 1.07 10 3/uL 11/01/2021 9:24 PM [facility] Eosinophils Absolute 0.24 0.00 - 0.47 10 3/uL 11/01/2021 9:24 PM [facility] Basophils Absolute 0.05 0.00 - 0.08 10 3/uL 11/01/2021 9:24 PM [facility] Immature Granulocytes % 0.3 0.0 - 1.0 % 11/01/2021 9:24 PM [facility] Immature Granulocytes Absolute 0.02 11/01/2021 9:24 PM [facility] Immature Platelet Fraction 2.7 1.1 - 6.2 % 11/01/2021 9:24 PM [facility] Blood BLOOD SPECIMEN / Unknown Venipuncture / Unknown 11/01/2021 9:00 PM CDT 11/01/2021 9:05 PM CDT Salo Griggs PA-C LAB - HEMATOLOGY ORD ERABLES [facility] [address] [place] [address], [facility] [phone] * (ABNORMAL) COMPREHENSIVE METABOLIC PANEL (11/01/2021 9:00 PM CDT) Only the most recent of4 resultswithin the time period is included. BUN 47(H) 7 - 26 mg/dL 11/01/2021 9:30 PM [facility] Creatinine 12.27(H) 0.71 - 1.16 mg/dL 11/01/2021 9:30 PM [facility] Sodium 140 136 - 145 mmol/L 11/01/2021 9:30 PM [facility] Potassium 5.1(H) 3.5 - 4.5 mmol/L 11/01/2021 9:30 PM [facility] Chloride 97(L) 98 - 107 mmol/L 11/01/2021 9:30 PM [facility] CO2 26 22 - 29 mmol/L 11/01/2021 9:30 PM [facility] Glucose 119(H) 70 - 115 mg/dL 11/01/2021 9:30 PM [facility] Calcium 10.5(H) 8.4 - 10.2 mg/dL 11/01/2021 9:30 PM [facility] Protein Total 7.1 6.0 - 8.3 g/dL 11/01/2021 9:30 PM [facility] Albumin 4.4 3.4 - 5.0 g/dL 11/01/2021 9:30 PM [facility] Bilirubin Total 0.5 0.2 - 1.2 mg/dL 11/01/2021 9:30 PM [facility] Alkaline Phosphatase 62 40 - 150 U/L 11/01/2021 9:30 PM [facility] ALT 9 5 - 55 U/L 11/01/2021 9:30 PM [facility] AST 5 5 - 34 U/L 11/01/2021 9:30 PM [facility] Anion Gap 22(H) 8 - 18 11/01/2021 9:30 PM [facility] BUN/Creatinine Ratio 4(L) 7 - 23 11/01/2021 9:30 PM [facility] Osmolality Calculated 303(H) 270 - 300 mOsm/kg 11/01/2021 9:30 PM [facility] Albumin/Globulin Ratio 1.6 1.1 - 2.3 11/01/2021 9:30 PM CDT [facility] eGFR by CKD-EPI 5(L) >=90 mL/min/1. 73 m2 11/01/2021 9:30 PM CDT [facility] Blood BLOOD SPECIMEN / Unknown Venipuncture / Unknown 11/01/2021 9:00 PM CDT 11/01/2021 9:04 PM CDT Salo Griggs PA-C LAB - CHEMISTRY ORDE CHERRY [facility] [address] [place] [address], [facility] [phone] * XR CHEST PA AND LATERAL (11/01/2021 [...] in alignment. Dictated by Christian Vega DO (residential leasing agent). I, Dr. ALY LEIGH MD have personally reviewed and interpreted this examination/study. This report was electronically signed by ALY LEIGH MD on 11/02/2021 9:59 AM . Narrative 11/02/2021 9:59 AM CDT EXAMINATION: XR CHEST 2VW HISTORY: R42: Dizziness COMPARISON: 05/01/2021 Procedure Note Aly Leigh MD - 11/02/2021 EXAMINATION: XR CHEST 2VW HISTORY: R42: Dizziness COMPARISON: 05/01/2021 FINDINGS/IMPRESSION: Lines and tubes: *Right internal jugular approach dialysis catheter terminates at the cavoatrial junction. There is no focal consolidation, pleural effusion, or pneumothorax. The cardiomediastinal silhouette is normal. Sternotomy wires are unchangedin alignment. Dictated by Christian Vega DO (residential leasing agent). I, Dr. ALY LEIGH MD have personally [...] fungus isolated HEATHER 08/19/2021 9:35 AM CDT [facility] MICROBIOLOGY Fungus Stain No yeast or hyphae seen 08/19/2021 9:35 AM CDT [facility] MICROBIOLOGY Microbiology ABDOMEN AND PELVIS / Unknown Collection / Unknown 07/23/2021 12:17 PM CDT 07/23/2021 12:25 PM CDT Cr Titus MD LAB - MICROBIOLOGY O RDERABLES [facility] MICROBIOLOGY [address] [place] [address], [facility] [phone] * CULTURE TISSUE+GRAM STAIN (07/23/2021 12:17 PM CDT) Only the most recent of2 resultswithin the time period is included. Culture No growth HEATHER 07/26/2021 6:46 PM CDT [facility] MICROBIOLOGY Gram Stain Rare Polymorphonuclear cells 07/26/2021 6:46 PM CDT [facility] MICROBIOLOGY Gram Stain No organisms seen 022 6:46 PM CDT [facility] MICROBIOLOGY Microbiology ABDOMEN AND PELVIS / Unknown Collection / Unknown 07/23/2021 12:17 PM CDT 07/23/2021 12:25 PM CDT Cr Titus MD LAB - MICROBIOLOGY O RDCYNTHIABLES Performing Organization Address [facility] Co de Phone Number [facility] MICROBIOLOGY [address] [place] [address], [facility] [phone] * (ABNORMAL) CULTURE ANAEROBE (07/23/2021 12:17 PM CDT) Only the most recent of4 resultswithin the time period is included. Culture Light Cutibacterium (formerly Propionibacterium ) acnes(A) HEATHER 07/28/2021 8:58 AM CDT [facility] MICROBIOLOGY Microbiology ABDOMEN AND PELVIS / Unknown Collection / Unknown 07/23/2021 12:17 PM CDT 07/23/2021 12:25 PM CDT Cr Titus MD LAB - MICROBIOLOGY O RDKYLE Performing Organization Address [facility] Co de Phone Number [facility] [address] [place] [address], [facility] [phone] * PATHOLOGY TISSUE (07/23/2021 12:05 PM CDT) Only the most recent of2 resultswithin the time period is included. Case Report Surgical Pathology Report Case: [id number] Authorizing Provider: Cr Titus MD Collected: 07/23/2021 12:05 PM Ordering Location: [facility] Received: 07/23/2021 01:39 PM Pathologist: Erinn Boyer MD Specimen: Soft Tissue Mass, internal abdominal wall mass 07/25/2021 12:52 PM CDT [facility] Final Diagnosis Soft tissue, internal abdominal wall mass, excision (A): - Remote hemorrhage and fibrin thrombus 07/25/2021 12:52 PM CDT [facility] Microscopic Description and Comment Microscopic examination substantiates the diagnosis. 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 [...] were determined by the Histopathology Laboratory of [facility]. Some of these tests were developed by [...] attending (teaching) pathologist. 07/25/2021 12:52 PM CDT [facility] Embedded Images 07/25/2021 12:52 PM T [facility] Biopsy, Excision SOFT TISSUE MASS / Unknown 07/23/2021 12:05 PM CDT 07/23/2021 1:39 PM CDT Comment:Pre-op diagnosis: ESRD (end stage renal disease) Cr Titus MD LAB - PATHOLOGY/CYTO LOGY ORDERABLES [facility] [address] [place] [address], [facility] [phone] * ETT LINE PERFORMABLE (07/23/2021 11:33 AM CDT) Narrative Sweta May Anes Asst - 07/23/2021 11:33 AM CDT Sweta May Anes Asst 07/23/2021 11:34 AM Endotracheal Tube Placement: Patient Location: OR. Intubation Event Date/Time: 07/23/2021 11:22 AM Procedure: intubation ([id number]). Procedure Section: Sedation: IV sedation. Indications for [...] - 5.1 mg/dL 07/23/2021 11:06 AM CDT [facility] Blood BLOOD SPECIMEN / Unknown Venipuncture / Unknown 07/23/2021 10:27 AM CDT 07/23/2021 10:38 AM CDT Cr Titus MD LAB - CHEMISTRY KRISTA CAREY [facility] [address] [place] [address], [facility] [phone] * ETT LINE PERFORMABLE (06/11/2021 1:41 PM SUPERVISOR [employer] PROCESSING) Narrative Graciela Urbano Anes Asst - 06/11/2021 1:41 PM SUPERVISOR [employer] PROCESSING Graciela Urbano Anes Asst 06/11/2021 1:43 PM Endotracheal Tube Placement: Patient Location: OR. Procedure: intubation ([id number]). Procedure Section: Sedation: under general anesthesia. Indications [...] (ABNORMAL) CBC W/O DIFFERENTIAL (06/11/2021 11:58 AM SUPERVISOR [employer] PROCESSING) Only the most recent of7 resultswithin the time period is included. WBC 11.1(H) 3.5 - 10.5 10 3/uL 06/11/2021 12:26 PM [facility] RBC 3.64(L) 4.30 - 5.70 10 6/uL 06/11/2021 12:26 PM [facility] Hemoglobin 11.3(L) 12.0 - 17.6 g/dL 06/11/2021 12:26 PM [facility] Hematocrit 32.8(L) 35.2 - 51.7 % 06/11/2021 12:26 PM [facility] MCV 90.1 80.7 - 98.3 fL 06/11/2021 12:26 PM [facility] MCH 31.0 26.7 - 34.0 pg 06/11/2021 12:26 PM [facility] MCHC 34.5 30.8 - 35.9 g/dL 06/11/2021 12:26 PM [facility] Platelet Count 176 150 - 400 10 3/uL 06/11/2021 12:26 PM [facility] RDW-SD 47.8 36.0 - 50.0 fL 06/11/2021 12:26 PM [facility] RDW-CV 15.0(H) 11.2 - 14.8 % 06/11/2021 12:26 PM [facility] MPV 9.5 9.4 - 12.9 fL 06/11/2021 12:26 PM [facility] nRBC Absolute 0.00 0 10 3/uL 06/11/2021 12:26 PM [facility] nRBC Auto 0.0 0 /100 WBC 06/11/2021 12:26 PM [facility] Blood BLOOD SPECIMEN / Unknown Venipuncture / Unknown 06/11/2021 11:58 AM [employer] 06/11/2021 12:21 PM [employer] Humza Whitmore MD LAB - HEMATOLOGY ORD ERABLES [facility] [address] [place] [id number], [facility] [phone] * (ABNORMAL) URINALYSIS COMPLETE W MICROSCOPIC (05/01/2021 4:50 PM [employer]) Color UA Colorless(A ) Straw, Yellow 05/01/2021 5:38 PM [facility] Clarity UA Clear Clear 05/01/2021 5:38 PM [facility] Specific Saxis UA 1.008 1.005 - 1.030 05/01/2021 5:38 PM [facility] pH UA 8.0 5.0 - 8.0 pH 05/01/2021 5:38 PM [facility] Protein UA 2+(A) Negative 05/01/2021 5:38 PM [facility] Glucose UA 1+(A) Negative 05/01/2021 5:38 PM [facility] Ketone UA Negative Negative 05/01/2021 5:38 PM [facility] Bilirubin UA Negative Negative 05/01/2021 5:38 PM [facility] Blood UA Negative Negative 05/01/2021 5:38 PM [facility] Nitrite UA Negative Negative 05/01/2021 5:38 PM [facility] Leukocyte Esterase Negative Negative 05/01/2021 5:38 PM [facility] Urobilinogen UA Negative Negative mg/dL 05/01/2021 5:38 PM [facility] RBC UA 0-2 None Seen, 0-2, 3-5 /HPF 05/01/2021 5:38 PM [facility] WBC UA 0-5 None Seen, 0-5 /HPF 05/01/2021 5:38 PM [facility] Bacteria UA Trace(A) None /HPF 05/01/2021 5:38 PM [facility] Squamous Epithelial Cells UA 0-2 None Seen, 0-2, 3-5 /HPF 05/01/2021 5:38 PM [facility] Urine URINE SPECIMEN OBTAINED BY CLEAN CATCH PROCEDURE / Unknown Collection / Unknown 05/01/2021 4:50 PM [facility] [employer] 05/01/2021 5:26 PM SUPERVISOR FISH BAIT PROCESSING [facility] - 05/01/2021 5:38 PM SUPERVISOR [employer] PROCESSING Alexandra Ramachandran MD LAB - URINALYSIS ORD ERABLES [address] [address], [facility] [phone] * PROTEIN URINE RANDOM QUANTITATIVE (05/01/2021 4:50 PM SUPERVIS[employer] PROCESSING) Protein Urine 79 Not Established mg/dL 05/01/2021 5:44 PM [facility] Urine URINE SPECIMEN OBTAINED BY CLEAN CATCH PROCEDURE / Unknown Collection / Unknown 05/01/2021 4:50 PM [employer] PROCESSING 05/01/2021 5:26 PM [employer] PROCESSING Alexandra Ramachandran MD LAB - URINE CHEMISTR Y ORDERABLES [address] [address], [facility] [phone] * CREATININE URINE RANDOM (05/01/2021 4:50 PM SUPER[employer] PROCESS[employer]) Creatinine Urine 30 Not Established mg/dL 05/01/2021 5:44 PM [facility] Urine URINE SPECIMEN OBTAINED BY CLEAN CATCH PROCEDURE / Unknown Collection / Unknown 05/01/2021 4:50 PM [employer] PROCESSING 05/01/2021 5:26 PM SU[employer] PROCESS[employer] Alexandra Ramachandran MD LAB - URINE CHEMISTR Y ORDERABLES [facility] [address] [place] [address], [facility] [phone] * ECHO STRESS TEST W DOBUTAMINE (05/01/2021 11:50 AM SUPER[employer] PROCESSING) Anatomical Region Laterality Modality Chest Echo 05/01/2021 10:3 7 AM SUPERVIS[employer] PROCESSING Narrative Procedure Note Anny Skinner MD - 05/01/2021 Alexandra Ramachandran MD ECHOCARDIOGRAPHY RAD IANT * BLOOD TYPE ABO+ RH PANEL (05/01/2021 9:37 AM SU[employer] PROCESS[employer]) ABO Rh O POS 05/01/2021 11:02 AM SUPERVISOR FISH BAIT PROCESSING [facility] Blood BLOOD SPECIMEN / Unknown Lab Venipuncture / Unknown 05/01/2021 9:37 AM SUPERVISOR [employer] PROCESSING 05/01/2021 10:03 AM SUPER[employer] PROCESSING Alexandra Ramachandran MD LAB - BLOOD BANK ORD ERABLES Performing Organization Address [facility]/ZIP Co de Phone Number [facility] [address] [place] [address], [facility] [phone] * HLA TYPING DNA LOW RESOLUTION DR,DQ (05/01/2021 9:21 AM SUPERVISOR FISH BAIT PROCESSING) DR DQ Low Resolution DRB1-1 *01 2021 5:07 PM SUPERVISOR FISH BAIT PROCESSING [facility] ([facility]) DR DQ Low Resolution DRB1-2 *11 2021 5:07 PM SUPERVISOR FISH BAIT PROCESSING [facility] ([facility]) DR DQ Low Resolution DQB1-1 *03 (DQ7) 2021 5:07 PM SUPERVISOR FISH BAIT PROCESSING [facility] ([facility]) DR DQ Low Resolution DQB1-2 *05 2021 5:07 PM SUPERVISOR FISH BAIT PROCESSING [facility] ([facility]) DR DQ Low Resolution DRB3-1 *02 2021 5:07 PM SUPERVISOR FISH BAIT PROCESSING [facility] ([facility]) DR DQ Low Resolution DRB3-2 Negative 2021 5:07 PM SUPERVISOR FISH BAIT PROCESSING [facility] ([facility]) DR DQ Low Resolution DRB4-1 Negative 2021 5:07 PM SUPERVISOR FISH BAIT PROCESSING [facility] ([facility]) DR DQ Low Resolution DRB4-2 Negative 2021 5:07 PM SUPERVISOR FISH BAIT PROCESSING [facility] ([facility]) DR DQ Low Resolution DRB5-1 Negative 2021 5:07 PM SUPERVISOR FISH BAIT PROCESSING [facility] ([facility]) DR DQ Low Resolution DRB5-2 Negative 2021 5:07 PM SUPERVISOR FISH BAIT PROCESSING [facility] ([facility]) DR DQ Low Resolution Methodology Real Time PCR 2021 5:07 PM SUPERVISOR FISH BAIT PROCESSING [facility] ([facility]) Comment DR DQ Low Resolution - 2021 5:07 PM SUPERVISOR FISH BAIT PROCESSING [facility] ([facility]) DR DQ Low Resolution test date 2021 2021 5:07 PM SUPERVISOR FISH BAIT PROCESSING [facility] ([facility]) Comment: This test was developed and its performance characteristics determined by the [facility]. It has not been cleared or [...] high complexity clinical laboratory testing. CLIA ID# [id number] Performed at: [facility], [address] [place] [phone] Hand Button Splitter:Dr. Mich Wolfe, PhD, Blood BLOOD SPECIMEN / Unknown Lab Venipuncture / Unknown 05/01/2021 9:21 AM SUPERVISOR [employer] PROCESSING 05/01/2021 9:46 AM SUPERVISOR FISH BAIT PROCESSING Alexandra Ramachandran MD LAB - BLOOD BANK ORD ERABLES [facility] ([facility]) [address] [place], [place] [address] [place] * HLA TYPING DNA LOW RESOLUTION A,B,C (05/01/2021 9:21 AM SUPERVISOR [employer] PROCESSING) ABC DNA A1 *02 2021 5:07 PM SUPERVISOR FISH BAIT PROCESSING [facility] ([facility]) ABC DNA A2 *11 2021 5:07 PM SUPERVISOR FISH BAIT PROCESSING [facility] ([facility]) ABC DNA B1 *40 (B61) 2021 5:07 PM SUPERVISOR FISH BAIT PROCESSING [facility] ([facility]) ABC DNA B2 *40 (B60) 2021 5:07 PM SUPERVISOR FISH BAIT PROCESSING [facility] ([facility]) ABC DNA BW1 6 2021 5:07 PM SUPERVISOR FISH BAIT PROCESSING [facility] ([facility]) ABC DNA BW2 6 2021 5:07 PM SUPERVISOR FISH BAIT PROCESSING [facility] ([facility]) ABC DNA C1 *02 2021 5:07 PM SUPERVISOR FISH BAIT PROCESSING [facility] ([facility]) ABC DNA C2 *03 (Cw10) 2021 5:07 PM SUPERVISOR FISH BAIT PROCESSING [facility] ([facility]) ABC DNA Methodology Real Time PCR 2021 5:07 PM SUPERVISOR FISH BAIT PROCESSING [facility] ([facility]) Comment ABC DNA - 5:07 PM SUPERVISOR FISH BAIT PROCESSING [facility] ([facility]) ABC DNA Test Date 2 2021 5:07 PM SUPERVISOR FISH BAIT PROCESSING [facility] ([facility]) Comment: This test was developed and its performance characteristics determined by the [facility]. It has not been cleared or approved [...] high complexity clinical laboratory testing. CLIA ID# [id number] Performed at: [facility], [address] [place] [phone] Hand Button Splitter:Dr. Mich Wolfe, PhD, Blood BLOOD SPECIMEN / Unknown Lab Venipuncture / Unknown 05/01/2021 9:21 AM SUPER[employer] PROCESSING 05/01/2021 9:46 AM SUPERVISOR [employer]IT PROCESSING Alexandra Ramachandran MD LAB - BLOOD BANK ORD ERABLES Performing Organization Address City/[facility]/ZIP Co de Phone Number [facility] ([facility]) [address] [place] [address], [facility] * HLA ANTIBODY SCREEN LUM CLASS 2 SAB (05/01/2021 9:21 AM SUPERVISOR FISH BAIT PROCESSING) % PRA 0 2021 5:08 PM SUPERVISOR FISH BAIT PROCESSING [facility] ([facility]) Class 2 LUM SAB Specificity - 2021 5:08 PM SUPERVISOR FISH BAIT PROCESSING [facility] ([facility]) Class 2 LUM SAB Moderate Risk - 2021 5:08 PM SUPERVISOR FISH BAIT PROCESSING [facility] ([facility]) Class 2 LUM SAB Reportable Comments - 2021 5:08 PM SUPERVISOR FISH BAIT PROCESSING [facility] ([facility]) Class 2 SAB Test Date 2021 5:08 PM SUPERVISOR FISH BAIT PROCESSING [facility] ([facility]) Comment: This test was developed and its performance characteristics determined by the [facility]. It has not been cleared or [...] high complexity clinical laboratory testing. CLIA ID# [id number] Performed at: [facility], [address] [place] [phone] Hand Button Splitter:Dr. Mich Wolfe, PhD, Blood BLOOD SPECIMEN / Unknown Lab Venipuncture / Unknown 05/01/2021 9:21 AM SUPERVISOR FISH BAIT PROCESSING 05/01/2021 9:47 AM SUPERVISOR FISH BAIT PROCESSING Alexnadra Ramachandran MD LAB - BLOOD BANK ORD ERABLES [facility] ([facility]) [address] [place] [address] * HLA ANTIBODY SCREEN LUM CLASS 1 SAB (05/01/2021 9:21 AM SUPERVISOR FISH BAIT PROCESSING) Pathologist [facility] [place] % PRA 0 2021 5:07 PM SUPERVISOR FISH BAIT PROCESSING [facility] ([facility]) Class 1 LUM SAB Specificity - 2021 5:07 PM SUPERVISOR FISH BAIT PROCESSING [facility] ([facility]) Class 1 LUM SAB Moderate Risk - 2021 5:07 PM SUPERVISOR FISH BAIT PROCESSING [facility] ([facility]) Class 1 LUM SAB Reportable Comments - 2021 5:07 PM SUPERVISOR FISH BAIT PROCESSING [facility] ([facility]) Class 1 SAB Test Date 2 2021 5:07 PM SUPERVISOR FISH BAIT PROCESSING [facility] ([facility]) Comment: This test was developed and its performance characteristics determined by the [facility]. It has not been cleared or [...] high complexity clinical laboratory testing. CLIA ID# [id number] Performed at: [facility], [address] [place] [phone] Hand Button Splitter:Dr. Mich Wolfe, PhD, Blood BLOOD SPECIMEN / Unknown Lab Venipuncture / Unknown 05/01/2021 9:21 AM SUPERVISOR FISH [employer]IT PROCESSING 05/01/2021 9:46 AM SUPERVISOR FISH BAIT PROCESSING Alexandra Ramachandran MD LAB - BLOOD BANK ORD ERABLES [facility] ([facility]) [address] [place] [address] * CANNABINOID SCREEN BLOOD (05/01/2021 9:21 AM SUPERVISOR FISH BAIT PROCESSING) [facility] Marijuana Metabolites +POSITIVE+ 2021 10:09 AM SUPERVISOR FISH BAIT PROCESSING [facility] ([facility]) Comment:REFERENCE RANGE: thr shold: 5 ng/mL Specimen Type Comment 2021 10:09 AM SUPERVISOR FISH BAIT PROCESSING [facility] ([facility]) Comment: WHOLE BLOOD This specimen was screened [...] Lab Venipuncture / Unknown 05/01/2021 9:21 AM SUPERVISOR FISH BAIT PROCESSING 05/01/2021 9:47 AM SUPERVISOR FISH BAIT PROCESSING Narrative [facility] ([facility]) - 2021 10:09 AM SUPERVISOR FISH BAIT PROCESSING Performed at: [facility] [address] [phone] Hand Button Splitter: Kiersten Shields [facility], Phone: [phone] Alexandra Ramachandran MD LAB - CHEMISTRY [facility] ([facility]) [address] [place] [address] * COCAINE METABOLITE QUANT (05/01/2021 9:21 AM SUPERVISOR FISH BAIT PROCESSING) [facility] Cocaine and Metabolite Blood <20 ng/mL 05/05/2021 1:22 AM SUPERVISOR FISH BAIT PROCESSING [facility] ([facility]) Comment: INTERPRETIVE INFORMATION: Cocaine Metabolite, Serum or [...] developed and its performance characteristics determined by [facility]. It has not been cleared or approved by the [place] Food and Drug Administration. This test was performed in a CLIA certified laboratory and is intended for clinical purposes. Performed By: [facility] [address] [place] [id number] Geodetic Surveyor: Agatha Vale MD Blood BLOOD SPECIMEN / Unknown Lab Venipuncture / Unknown 05/01/2021 9:21 AM SUPERVISOR FISH BAIT PROCESSING 05/01/2021 9:47 AM SUPERVISOR FISH BAIT PROCESSING Alexandra Ramachandran MD LAB - CHEMISTRY ORDE CHERRY [facility] [email or web address] [facility]) [address] [phone], [facility] * SYPHILIS ANTIBODY CASCADING REFLEX (05/01/2021 9:21 AM SUPERVISOR FISH BAIT PROCESSING) Treponema pallidum Antibody Non-react jammie Non-react jammie 05/01/2021 11:08 AM SUPERVISOR FISH BAIT PROCESSING [facility] Comment: No Laboratory evidence of syphilis infection. Note: Circulating antibodies may be low or undetectable in early infection. If recent exposure is suspected, re-draw sample in 2-4 weeks and repeat testing. Blood BLOOD SPECIMEN / Unknown Lab Venipuncture / Unknown 05/01/2021 9:21 AM SUPERVISOR FISH BAIT PROCESSING 05/01/2021 9:48 AM SUPERVISOR FISH BAIT PROCESSING Alexandra Ramachandran MD LAB - SEROLOGY ORDER RED [facility] [address] [place] [address], [facility] [phone] * AMPHETAMINE BLOOD CONFIRMATION (05/01/2021 9:21 AM SUPERVISOR FISH BAIT PROCESSING) Amphetamines Confirmation <20 ng/mL 05/04/2021 7:41 PM SUPERVISOR FISH BAIT PROCESSING [facility] ([facility]) Comment: INTERPRETIVE INFORMATION: Amphetamines, Serum or Plasma, [...] developed and its performance characteristics determined by [facility]. It has not been cleared or approved by the [place] Food and Drug Administration. This test was performed in a CLIA certified laboratory and is intended for clinical purposes. Methamphetamine Confirmation <20 ng/mL 05/04/2021 7:41 PM SUPERVISOR FISH BAIT PROCESSING [facility] ([facility]) MDA Confirmation <20 ng/mL 05/04/19 7:41 PM SUPERVISOR FISH BAIT PROCESSING [facility] ([facility]) MDMA Confirm <20 ng/mL 05/04/2021 7:41 PM SUPERVISOR FISH BAIT PROCESSING [facility] ([facility]) MDEA Confirmation <20 ng/mL 022 7:41 PM SUPERVISOR FISH BAIT PROCESSING [facility] ([facility]) Comment: Performed By: [facility] [address] [place] [address] Geodetic Surveyor: Agatha Vale MD Blood BLOOD SPECIMEN / Unknown Lab Venipuncture / Unknown 05/01/2021 9:21 AM SUPERVISOR FISH BAIT PROCESSING 05/01/2021 9:47 AM SUPERVISOR FISH BAIT PROCESSING Alexandra Ramachandran MD LAB - CHEMISTRY ORDE CHERRY [facility]) [address] [place] [address] * QUANTIFERON-TB GOLD PLUS 4-TUBE (05/01/2021 9:21 AM SUPERVISOR FISH BAIT PROCESSING) [facility] QuantiFERON NIL 0.02 IU/mL 1:50 PM SUPERVISOR FISH BAIT PROCESSING [facility] ([facility]) Comment: Performed By: [facility] [address] [place] [address] Geodetic Surveyor: Agatha Vale MD QuantiFERON TB Gold Plus Negative Negative 05/04/2021 1:50 PM SUPERVISOR FISH BAIT PROCESSING [facility] ([facility]) Comment: Interpretive Data: Quantiferon TB Gold Plus [...] Mycobacterium tuberculosis Infection --- [place], 2010 (http://www.cdc.gov/mmwr/preview/mmwrhtml/oq7886o6.htm), for more information concerning test performance in low-prevalence populations and use in occupational screening. QuantiFERON Plus TB1 Minus NIL 0.01 0.00 - 0.34 IU/mL 05/04/2021 1:50 PM SUPERVISOR FISH BAIT PROCESSING [facility] ([facility]) QuantiFERON Plus TB2 Minus NIL 0.00 0.00 - 0.34 IU/mL 05/04/2021 1:50 PM SUPERVISOR FISH BAIT PROCESSING [facility]) QuantiFERON Mitogen Minus NIL 9.13 IU/mL 05/04/2021 1:50 PM SUPERVISOR FISH BAIT PROCESSING [facility]) Blood BLOOD SPECIMEN / Unknown Lab Venipuncture / Unknown 05/01/2021 9:21 AM SUPERVISOR FISH BAIT PROCESSING 05/01/2021 9:48 AM SUPERVISOR FISH BAIT PROCESSING Alexandra Ramachandran MD LAB - CHEMISTRY KRISTA CAREY [facility]) [address] * (ABNORMAL) PTH INTACT ([facility]) (05/01/2021 9:21 AM SUPERVISOR FISH BAIT PROCESSING) Only the most recent of2 resultswithin the time period is included. Pathologist [facility] [place] PTH Intact 577.4(H) 8.0 - 77.0 pg/mL 05/01/2021 10:26 AM SUPERVISOR FISH BAIT PROCESSING [facility] Blood BLOOD SPECIMEN / Unknown Lab Venipuncture / Unknown 05/01/2021 9:21 AM SUPERVISOR FISH BAIT PROCESSING 05/01/2021 9:51 AM SUPERVISOR FISH BAIT PROCESSING Alexandra Ramachandran MD LAB - CHEMISTRY KRISTA CARE[id number] [place] [address], [facility] [phone] * HIV-1 HIV-2 ANTIBODY + HIV P24 AG PANEL (05/01/2021 9:21 AM SUPERVISOR FISH BAIT PROCESSING) Only the most recent of2 resultswithin the time period is included. [facility] HIV Antigen/Antibod y 1 & 2 Non-reacti ve Non-react jammie 05/01/2021 11:08 AM SUPERVISOR FISH BAIT PROCESSING [facility] Comment:No Laboratory eviden ce of HIV infection. Blood BLOOD SPECIMEN / Unknown Lab Venipuncture / Unknown 05/01/2021 9:21 AM SUPERVISOR FISH BAIT PROCESSING 05/01/2021 9:48 AM SUPERVISOR FISH BAIT PROCESSING Alexandra Ramachandran MD LAB - CHEMISTRY KRISTA CAREY [facility] [address] [place] [address], [facility] [phone] * OPIATES BLOOD (05/01/2021 9:21 AM SUPERVISOR FISH BAIT PROCESSING) [facility] Opiates Screen Negative 2021 10:09 AM SUPERVISOR FISH BAIT PROCESSING [facility] ([facility]) Comment:REFERENCE RANGE: thr shold: 10 ng/mL Oxycodone Screen Negative 05/07/19 10:09 AM SUPERVISOR FISH BAIT PROCESSING [facility] ([facility]) Comment:REFERENCE RANGE: thr shold: 10 ng/mL Specimen Type Comment 2021 10:09 AM SUPERVISOR FISH BAIT PROCESSING [facility] ([facility]) Comment: WHOLE BLOOD This specimen was screened [...] Lab Venipuncture / Unknown 05/01/2021 9:21 AM SUPERVISOR FISH BAIT PROCESSING 05/01/2021 9:47 AM SUPERVISOR FISH BAIT PROCESSING Narrative [facility] ([facility]) - 2021 10:09 AM SUPERVISOR FISH BAIT PROCESSING Performed at: [facility] [address] [phone] Hand Button Splitter: Kiersten Shields [facility], Phone: [phone] Alexandra Ramachandran MD LAB - CHEMISTRY KRISTA CAREY [facility] ([facility]) [address] [place] [address] * URIC ACID BLOOD (05/01/2021 9:21 AM SUPERVISOR FISH BAIT PROCESSING) Uric Acid 4.7 3.5 - 7.2 mg/dL 05/01/2021 10:23 AM SUPERVISOR FISH BAIT PROCESSING [facility] Blood BLOOD SPECIMEN / Unknown Lab Venipuncture / Unknown 05/01/2021 9:21 AM SUPERVISOR FISH BAIT PROCESSING 05/01/2021 9:52 AM SUPERVISOR FISH BAIT PROCESSING Alexandra Ramachandran MD LAB - CHEMISTRY KRISTA CAREY [address] [address] [phone] * STRONGYLOIDES ANTIBODY IGG (05/01/2021 9:21 AM SUPERVISOR FISH BAIT PROCESSING) Strongyloides Antibody IgG 0.1 <=0.9 IV 05/05/2021 1:32 PM SUPERVISOR FISH BAIT PROCESSING [employer] ([facility]) Comment: INTERPRETIVE INFORMATION: Strongyloides Ab, IgG by [...] also result in false-positive results. Performed By: [facility] [address] [place] [id number] Geodetic Surveyor: Agatha Vale MD Blood BLOOD SPECIMEN / Unknown Lab Venipuncture / Unknown 05/01/2021 9:21 AM SUPERVISOR FISH BAIT PROCESSING 05/01/2021 9:48 AM SUPERVISOR FISH BAIT PROCESSING Alexandra Ramachandran MD LAB - SEROLOGY ORDER RED [facility] [email or web address] [facility]) [address] [place] [address] * CYTOMEGALOVIRUS ANTIBODY IGG BLOOD (05/01/2021 9:21 AM SUPERVISOR FISH BAIT PROCESSING) Pathologist [facility] Cytomegalovirus Antibody IgG <0.20 U/mL 05/03/2021 3:06 PM SUPERVISOR FISH BAIT PROCESSING [facility] [email or web address] ([facility]) Comment: INTERPRETIVE INFORMATION: Cytomegalovirus Antibody, IgG 0.59 [...] laboratory at the same time. Performed By: [facility] [address] [place] [address] Geodetic Surveyor: Agatha Vale MD Blood BLOOD SPECIMEN / Unknown Lab Venipuncture / Unknown 05/01/2021 9:21 AM SUPERVISOR FISH BAIT PROCESSING 05/01/2021 9:48 AM SUPERVISOR FISH BAIT PROCESSING Alexandra Ramachandran MD LAB - CHEMISTRY ORDE CHERRY [facility] [email or web address] [facility]) [address] [place] [address] * RUBELLA ANTIBODY IGG TITER (05/01/2021 9:21 AM SUPERVISOR FISH BAIT PROCESSING) [facility] Rubella Antibody IgG 15.1 IU/mL 05/03/2021 12:21 PM SUPERVISOR FISH BAIT PROCESSING [employer] ([facility]) Comment: INTERPRETIVE INFORMATION: Rubella Antibody, IgG Less [...] the amount of antibody present. Performed By: [facility] [address] [place] [address] Geodetic Surveyor: Agatha Vale MD Blood BLOOD SPECIMEN / Unknown Lab Venipuncture / Unknown 05/01/2021 9:21 AM SUPERVISOR FISH BAIT PROCESSING 05/01/2021 9:47 AM SUPERVISOR FISH BAIT PROCESSING Alexandra Ramachandran MD LAB - SEROLOGY ORDER RED [facility] [email or web address] [facility]) [address] [place] [address], [facility] * RUBEOLA ANTIBODY IGG (05/01/2021 9:21 AM SUPERVISOR FISH BAIT PROCESSING) [facility] Measles (Rubeola) Antibody IgG 7.6 AU/mL 05/03/2021 2:08 PM SUPERVISOR FISH BAIT PROCESSING [facility] [email or web address] ([facility]) Comment: INTERPRETIVE INFORMATION: Measles (Rubeola) Antibody, IgG [...] laboratory at the same time. Performed By: [facility] [address] [place] [address] Geodetic Surveyor: Agatha Vale MD Blood BLOOD SPECIMEN / Unknown Lab Venipuncture / Unknown 05/01/2021 9:21 AM SUPERVISOR FISH BAIT PROCESSING 05/01/2021 9:47 AM SUPERVISOR FISH BAIT PROCESSING Alexandra Ramachandran MD LAB - CHEMISTRY KRISTA CAREY Performing Organization Address [facility] de Phone Number [facility] [email or web address] [facility]) [address] [place] [address] * MUMPS ANTIBODY IGG (05/01/2021 9:21 AM SUPERVISOR FISH BAIT PROCESSING) Mumps Virus Antibody IgG 51.0 AU/mL 05/03/2021 12:38 PM SUPERVISOR FISH BAIT PROCESSING [facility] [email or web address] ([facility]) Comment: INTERPRETIVE INFORMATION: Mumps Ab, IgG by [...] laboratory at the same time. Performed By: [facility] [address] [place] [address] Geodetic Surveyor: Agatha Vale MD Blood BLOOD SPECIMEN / Unknown Lab Venipuncture / Unknown 05/01/2021 9:21 AM SUPERVISOR FISH BAIT PROCESSING 05/01/2021 9:48 AM SUPERVISOR FISH BAIT PROCESSING Alexandra Ramachandran MD LAB - CHEMISTRY KRISTA CAREY Performing Organization Address [facility] Co de Phone Number [facility] [email or web address] ([facility]) [address] [place] [address] * VARICELLA ZOSTER ANTIBODY IGG (05/01/2021 9:21 AM SUPERVISOR FISH BAIT PROCESSING) Varicella zoster Virus Antibody IgG 533.9 IV 05/03/2021 12:23 PM SUPERVISOR FISH BAIT PROCESSING [employer] ([facility]) Comment: INTERPRETIVE INFORMATION: VZV Ab, IgG 134.9 [...] laboratory at the same time. Performed By: [facility] [address] [place] [address] Geodetic Surveyor: Agatha Vale MD Blood BLOOD SPECIMEN / Unknown Lab Venipuncture / Unknown 05/01/2021 9:21 AM SUPERVISOR FISH BAIT PROCESSING 05/01/2021 9:48 AM SUPERVISOR FISH BAIT PROCESSING Alexandra Ramachandran MD LAB - CHEMISTRY KRISTA CAREY Performing Organization Address City/[facility]/ZIP Co de Phone Number [facility]) [address] [place] [address] * (ABNORMAL) TRANSFERRIN (05/01/2021 9:21 AM SUPERVISOR FISH BAIT PROCESSING) [facility] Transferrin 167(L) 174 - 382 mg/dL 05/01/2021 10:49 AM SUPERVISOR FISH BAIT PROCESSING [facility] Blood BLOOD SPECIMEN / Unknown Lab Venipuncture / Unknown 05/01/2021 9:21 AM SUPERVISOR FISH BAIT PROCESSING 05/01/2021 9:48 AM SUPERVISOR FISH BAIT PROCESSING Alexandra Ramachandran MD LAB - CHEMISTRY ORDLisa CAREY [address] [address], [facility] [phone] * TOXOPLASMA GONDII ANTIBODY IGG (05/01/2021 9:21 AM SUPERVISOR FISH BAIT PROCESSING) [facility] Toxoplasma Antibody IgG <3.0 IU/mL 05/03/2021 1:50 PM SUPERVISOR FISH BAIT PROCESSING [facility] ([facility]) Comment: INTERPRETIVE INFORMATION: Toxoplasma Ab, IgG 7.1 [...] the amount of antibody present. Performed By: [facility] [address] [place] [address] Geodetic Surveyor: Agatha Vale MD Blood BLOOD SPECIMEN / Unknown Lab Venipuncture / Unknown 05/01/2021 9:21 AM SUPERVISOR FISH BAIT PROCESSING 05/01/2021 9:48 AM SUPERVISOR FISH BAIT PROCESSING Alexandra Ramachandran MD LAB - CHEMISTRY KRISTA CAREY [facility] Organization Address City/State/ZIP Co de Phone Number [facility] [email or web address] [facility]) [address] [place] [address] * (ABNORMAL) TITO-MYLES VIRUS ANTIBODY TO VCA IGG (05/01/2021 9:21 AM SUPERVISOR FISH BAIT PROCESSING) [facility] Tito-Myles Virus Antibody IgG Viral Capsid Antigen 687.0(H) 0.0 - 21.9 U/mL 05/03/2021 12:41 PM SUPERVISOR FISH BAIT PROCESSING [facility] [email or web address] ([facility]) Comment: INTERPRETIVE INFORMATION: Tito-Myles Virus Antibody to Viral Capsid Antigen, IgG 17.9 U/mL or less.......Not Detected 18.0-21.9 U/mL..........Indeterminate - Repeat testing in 10-14 days may be helpful. 22.0 U/mL or greater....Detected Performed By: [facility] [address] [place] [address] Geodetic Surveyor: Agatha Vale MD Blood BLOOD SPECIMEN / Unknown Lab Venipuncture / Unknown 05/01/2021 9:21 AM SUPERVISOR FISH BAIT PROCESSING 05/01/2021 9:47 AM SUPERVISOR FISH BAIT PROCESSING Alexandra Ramachandran MD LAB - CHEMISTRY KRISTA CAREY [facility]) [address] [place] [id number], [facility] * HEMOGLOBIN A1C (05/01/2021 9:21 AM SUPERVISOR FISH BAIT PROCESSING) Hemoglobin A1c 4.5 4.4 - 6.3 % 05/01/2021 11:11 AM [facility] Estimated Average Glucose 82 mg/dL 05/01/2021 11:11 AM [facility] Comment: HbA1c Interpretation: Treatment target values recommended by ADA and other clinical organizations should be used to evaluate metabolic control in patients. Treatment Target Values: Normal : < 5.7% Pre-diabetes: 5.7-6.4% Diabetes: Equal to or greater than 6.5% Reference: [place] Diabetes Association Standards of Care in Diabetes -2014 In patients 70 years and older consider HbA1c target range of 7.0-7.5% Reference: Diabetes Mellitus in Older People: Position Statement on behalf of the International Association of Gerontology and Geriatrics (IAGG), the Diabetes Working Constitution Party for Older People (EDWPOP), and the International Task Force of Experts in Diabetes. Leonardo Snow, et al. J [place] [employer] Association. 2012 Test results diagnostic of diabetes should be repeated for confirmation. The Sebia Capillary 2 assay for the measurement of HbA1c is a National Glycohemoglobin Standardization Program (NGSP)certified method. Blood BLOOD SPECIMEN / Unknown Lab Venipuncture / Unknown 05/01/2021 9:21 AM SUPERVISOR FISH BAIT PROCESSING 05/01/2021 9:51 AM SUPERVISOR FISH BAIT PROCESSING Alexandra Ramachandran MD LAB - CHEMISTRY KRISTA CAREY [facility] [address] [address], [facility] [phone] * VITAMIN D 25-HYDROXY (05/01/2021 9:21 AM SUPERVISOR FISH BAIT PROCESSING) Only the most recent of2 resultswithin the time period is included. Vitamin D, 25 Hydroxy 32.0 30.0 - 80.0 ng/mL 05/01/2021 10:42 AM [facility] Comment: The recommendations for 25-Hydroxy Vitamin [...] Lab Venipuncture / Unknown 05/01/2021 9:21 AM SUPERVISOR FISH BAIT PROCESSING 05/01/2021 9:52 AM SUPERVISOR FISH BAIT PROCESSING Alexandra Ramachandran MD LAB - CHEMISTRY ORDE CHERRY [address] [address], [place] [phone] * TYPE + SCREEN PANEL (05/01/2021 9:21 AM SUPERVISOR FISH BAIT PROCESSING) Only the most recent of3 resultswithin the time period is included. Antibody Screen NEG 11:02 AM SUPERVISOR FISH BAIT PROCESSING [facility] ABO Rh O POS 05/01/2021 11:02 AM [facility] BLOOD BANK LAB Blood Bank BLOOD SPECIMEN / Unknown Lab Venipuncture / Unknown 05/01/2021 9:21 AM SUPERVISOR FISH BAIT PROCESSING 05/01/2021 10:03 AM SUPERVISOR FISH BAIT PROCESSING Alexandra Ramachandran MD LAB - BLOOD BANK ORD ERABLES [facility] [place] [address], [place] [phone] * NICOTINE + METABOLITES BLOOD (05/01/2021 9:21 AM SUPERVISOR FISH BAIT PROCESSING) Nicotine <2 ng/mL 05/04/2021 8:47 PM SUPERVISOR FISH BAIT PROCESSING PT [employer] ([facility]) Comment: Consistent with abstinence from nicotine-containing products [...] developed and its performance characteristics determined by [employer]. It has not been cleared or approved by the US Food and Drug Administration. This test was performed in a CLIA certified laboratory and is intended for clinical purposes. Performed By: [place] [address] Geodetic Surveyor: Agatha Vale MD 3-Hydroxy Cotinine <2 ng/mL 2021 8:47 PM SUPERVISOR FISH BAIT PROCESSING [facility] ([facility]) Cotinine <2 ng/mL 05/04/2021 8:47 PM SUPERVISOR FISH BAIT PROCESSING [facility] ([facility]) Blood BLOOD SPECIMEN / Unknown Lab Venipuncture / Unknown 05/01/2021 9:21 AM SUPERVISOR FISH BAIT PROCESSING 05/01/2021 9:48 AM SUPERVISOR FISH BAIT PROCESSING Alexandra Ramachandran MD LAB - CHEMISTRY KRISTA CAREY Performing Organization Address [facility] de Phone Number [facility] ([facility]) [address] [place] [address] * IRON BLOOD (05/01/2021 9:21 AM SUPERVISOR FISH BAIT PROCESSING) [facility] Iron 62 50 - 175 ug/dL 05/01/2021 10:49 AM SUPERVISOR FISH BAIT PROCESSING [facility] Blood BLOOD SPECIMEN / Unknown Lab Venipuncture / Unknown 05/01/2021 9:21 AM SUPERVISOR FISH BAIT PROCESSING 05/01/2021 9:48 AM SUPERVISOR FISH BAIT PROCESSING Alexandra Ramachandran MD LAB - CHEMISTRY KRISTA CAREY Performing Organization Address [facility]/State/ZIP Co de Phone Number [address] [address], [place] [phone] * (ABNORMAL) HEPATITIS B SURFACE ANTIBODY (05/01/2021 9:21 AM SUPERVISOR FISH BAIT PROCESSING) Only the most recent of2 resultswithin the time period is included. Hepatitis B Virus Surface Antibody Reactive( A) Non-react jammie 05/01/2021 11:08 AM [facility] Comment: > 12 mIU/mL Hepatitis B surface Antibody (HBsAb). Reactive for HBsAb - individual is considered immune to Hepatitis B Virus infection. Hepatitis B Surface Antibody Quantitative 12.2(H) <8.0 mIU/mL 05/01/2021 11:08 AM [facility] Comment: Hepatitis B Surface Antibody Numeric Result Interpretation: Nonreactive: <8.0 mIU/mL Indeterminate: 8.0 - 12.0 mIU/mL Reactive: >12.0 mIU/mL Blood BLOOD SPECIMEN / Unknown Lab Venipuncture / Unknown 05/01/2021 9:21 AM SUPERVISOR FISH BAIT PROCESSING 05/01/2021 9:48 AM SUPERVISOR FISH BAIT PROCESSING Alexandra Ramachandran MD LAB - CHEMISTRY KRISTA CAREY Performing Organization Address City/[facility]/ZIP Co de Phone Number [address] [address], [place] [phone] * HEPATITIS B CORE ANTIBODY (05/01/2021 9:21 AM SUPERVISOR FISH BAIT PROCESSING) HBc Antibody Total Non-reacti ve Non-reacti ve 05/01/2021 11:08 AM [facility] Blood BLOOD SPECIMEN / Unknown Lab Venipuncture / Unknown 05/01/2021 9:21 AM SUPERVISOR FISH BAIT PROCESSING 05/01/2021 9:48 AM SUPERVISOR FISH BAIT PROCESSING Alexandra Ramachandran MD LAB - CHEMISTRY KRISTA CAREY [address] [address], [place] [phone] * HEPATITIS B SURFACE ANTIGEN W RFLX CONFIRMATION (05/01/2021 9:21 AM SUPERVISOR FISH BAIT PROCESSING) Only the most recent of2 resultswithin the time period is included. Pathologist [facility] Hepatitis B Virus Surface Antigen Non-reacti ve Non-reacti ve 05/01/2021 11:08 AM [facility] Blood BLOOD SPECIMEN / Unknown Lab Venipuncture / Unknown 05/01/2021 9:21 AM SUPERVISOR FISH BAIT PROCESSING 05/01/2021 9:48 AM SUPERVISOR FISH BAIT PROCESSING Alexandra Ramachandran MD LAB - CHEMISTRY KRISTA CAREY Performing Organization Address [facility]/ZIP Co de Phone Number [address] [address], [facility] [phone] * ALCOHOL ETHYL BLOOD (05/01/2021 9:21 AM SUPERVISOR FISH BAIT PROCESSING) [facility] Ethanol (mg/dL) <10 <10 mg/dL 10:23 AM [facility] Ethanol Calculated (g/dL) <0.010 <0.010 g/dL 05/01/2021 10:23 AM [facility] Blood BLOOD SPECIMEN / Unknown Lab Venipuncture / Unknown 05/01/2021 9:21 AM SUPERVISOR FISH BAIT PROCESSING 05/01/2021 9:52 AM SUPERVISOR FISH BAIT PROCESSING Narrative [facility] - 05/01/2021 10:23 AM SUPERVISOR FISH BAIT PROCESSING Ethanol Interp <10: None Detected. Depression of SENIOR ORACLE DATABASE DEVELOPER: >100 mg/dl Potentially Critical: >250 mg/dl Potentially [...] - CHEMISTRY KRISTA CAREY Performing Organization Address City/[facility]/ZIP Co de Phone Number [address] [address], [facility] [phone] * HEPATITIS C ANTIBODY (05/01/2021 9:21 AM SUPERVISOR FISH BAIT PROCESSING) [facility] Hepatitis C Antibody Non-react jammie Non-reac tive 05/01/2021 11:08 AM SUPERVISOR FISH BAIT PROCESSING [facility] Comment:Hepatitis C Antibody screen indicates no serologic evidence of past or current infection with Hepatitis C Virus. Patients with unexplained liver disease who are immunocompromised or suspected of having acute Hepatitis C infection may benefit from Nucleic Acid Test (ELOM) for Hepatitis C Viral RNA to confirm Hepatitis C status. Blood BLOOD SPECIMEN / Unknown Lab Venipuncture / Unknown 05/01/2021 9:21 AM SUPERVISOR FISH BAIT PROCESSING 05/01/2021 9:48 AM SUPERVISOR FISH BAIT PROCESSING Alexandra Ramachandran MD LAB - CHEMISTRY KRISTA CAREY [facility] [address] [address], [facility] [phone] * HEPATITIS A ANTIBODY (05/01/2021 9:21 AM SUPERVISOR FISH BAIT PROCESSING) [facility] Hepatitis A Virus Antibody Total Negative Negative 05/03/2021 8:31 AM SUPERVISOR FISH BAIT PROCESSING PT [employer] ([facility]) Comment: Performed by [facility], [address] [place] [address] [email or web address], Agatha Vale MD, Lab. Director Blood BLOOD SPECIMEN / Unknown Lab Venipuncture / Unknown 05/01/2021 9:21 AM SUPERVISOR FISH BAIT PROCESSING 05/01/2021 9:47 AM SUPERVISOR FISH BAIT PROCESSING Alexandra Ramachandran MD LAB - CHEMISTRY KRISTA CAREY [employer] [facility]) [address] [place] [address] * (ABNORMAL) FERRITIN (05/01/2021 9:21 AM SUPERVISOR FISH BAIT PROCESSING) [facility] Ferritin 469(H) 22 - 275 ng/mL 05/01/2021 11:08 AM SUPERVISOR FISH BAIT PROCESSING [facility] Blood BLOOD SPECIMEN / Unknown Lab Venipuncture / Unknown 05/01/2021 9:21 AM SUPERVISOR FISH BAIT PROCESSING 05/01/2021 9:48 AM SUPERVISOR FISH BAIT PROCESSING Alexandra Ramachandran MD LAB - CHEMISTRY ORDLisa BRADENRUDI Performing Organization Address City/[facility]/ZIP Co de Phone Number [place] [id number] [place] [address], [facility] [phone] * (ABNORMAL) LIPID PROFILE (05/01/2021 9:21 AM SUPERVISOR FISH BAIT PROCESSING) Cholesterol Total 155 <200 mg/dL 05/01/2021 10:23 AM [facility] HDL 34(L) >40 mg/dL 05/01/2021 10:23 AM [facility] Comment: ATP III Classification of HDL Cholesterol: <40 mg/dL: Considered a major risk factor. >60 mg/dL: Considered a negative risk factor. LDL Calculated 85 <100 mg/dL 05/01/2021 10:23 AM [facility] Comment: ATP III Classification of LDL Cholesterol: <100 mg/dL: Optimal 100 - 129 mg/dL: Near Optimal/Above Optimal 130 - 159 mg/dL: Borderline High 160 - 189 mg/dL: High >190 mg/dL: Very High Triglycerides 182(H) <150 mg/dL 05/01/2021 10:23 AM [facility] Comment: ATP III Classification of Triglycerides: <150 mg/dL: Normal 150 - 199 mg/dL: Borderline High 200 - 400 mg/dL: High >500 mg/dL: Very High Blood BLOOD SPECIMEN / Unknown Lab Venipuncture / Unknown 05/01/2021 9:21 AM SUPERVISOR FISH BAIT PROCESSING 05/01/2021 9:52 AM SUPERVISOR FISH BAIT PROCESSING Alexandra Ramachandran MD LAB - CHEMISTRY KRISTA CAREY [facility] [address] [place] [address], [facility] [phone] * XR PANOREX (05/01/2021 8:58 AM SUPERVISOR FISH BAIT PROCESSING) Anatomical Region Laterality Modality Head Radiographic Jeferson ging 05/01/2021 9:42 AM SUPERVISOR FISH BAIT PROCESSING Impressions 05/01/2021 12:15 PM SUPERVISOR FISH BAIT PROCESSING IMPRESSION: No evidence of periapical abscess. Dictated by Meryl Edmonds MD (residential leasing agent). Dr. CARL Mcnamara have personally reviewed and interpreted this examination/study. This report was electronically signed by CARL SHELL on 05/01/2021 12:15 PM . Narrative 05/01/2021 12:15 PM SUPERVISOR FISH BAIT PROCESSING EXAMINATION: Panorex HISTORY: Z01.818: Pre-transplant evaluation for [...] periapical abscess. Dictated by Meryl Edmonds MD (residential leasing agent). Dr. CARL Mcnamara have personally reviewed and interpreted this examination/study. This report was electronically signed by CARL SHELL on 05/01/2021 12:15 PM . Alexandra Ramachandran MD DIAGNOSTIC IMAGING O RDERABLES * US RETROPERITONEAL COMPLETE (05/01/2021 8:56 AM SUPERVISOR FISH BAIT PROCESSING) Anatomical Region Laterality Modality Abdomen Ultrasound 05/01/2021 8:54 AM SUPERVISOR FISH BAIT PROCESSING Impressions 05/01/2021 9:02 AM SUPERVISOR FISH BAIT PROCESSING IMPRESSION: 1. Atrophic multicystic echogenic kidneys, consistent with end-stage renal disease. 2. Nonobstructing left renal calculus. This report was electronically signed by COREY JAMES on 05/01/2021 9:02 AM . Narrative 05/01/2021 9:02 AM SUPERVISOR FISH BAIT PROCESSING EXAMINATION: RENAL ULTRASOUND CLINICAL HISTORY: Pretransplant evaluation [...] * ETT LINE PERFORMABLE (03/12/2021 12:26 PM SUPERVISOR FISH BAIT PROCESSING) Narrative Khalida Hernandez APRN-CRNA - 03/12/2021 12:26 PM SUPERVISOR FISH BAIT PROCESSING Khalida Hernandez APRN-CRNA 03/12/2021 12:28 PM Endotracheal Tube Placement: Patient Location: OR. Procedure: intubation (75747). Procedure Section: Sedation: under general anesthesia. Indications [...] Staff Section Anesthesia Provider: Bright, Khalida N, DETECTIVE AUTOMOBILE SECTION-COMMERCIAL SALES CONSULTANT, Performed the procedure Deya Sorensen MD GENERAL ANESTHESIA O RDERABLES * IR PERITONEAL TUNNEL CATH PLACE (02/25/2021 12:21 PM SUPERVISOR FISH BAIT PROCESSING) Only the most recent of2 resultswithin the time period is included. Anatomical Region Laterality Modality Abdomen X-Ray Angiograph y 02/26/2021 7:02 AM SUPERVISOR FISH BAIT PROCESSING Impressions 02/26/2021 7:07 AM SUPERVISOR FISH BAIT PROCESSING Impression: Unsuccessful attempt at placement of a peritoneal dialysis catheter. I was present throughout the procedure. This report was electronically signed by EFRA ONTIVEROS M.D. on 02/26/2021 7:07 AM . Narrative 02/26/2021 7:07 AM SUPERVISOR FISH BAIT PROCESSING This is an interventional nephrology procedure performed on February 25, 2021 Nuclear Physicist: Efra Ontiveros Procedures performed: 1. attempted insertion [...] evaluation, please review the evaluation forms in [facility]. For details on monitored clinical parameters during the intra-service sedation time, please review the procedure nurse documentation in [facility]. Local anesthetic was infiltrated in the [...] nephrology procedure performed on February 25, 2021 Nuclear Physicist: Efra Herrera. [place] Procedures performed: 1. attempted insertion of PD catheter without peritoneoscopy 2. Injection of contrast in the peritoneal cavity 3. Ultrasound guidance for needle placement 4. Conscious sedation This patient was referred for placement of peritoneal dialysis catheter. Following informed consent the patient was taken to the angiographyrust and placed on the fluoroscopy table. The [...] patient evaluation, please reviewthe evaluation forms in [facility]. For details on monitored clinical parameters during the intra-service sedation time, please review the procedurenurse documentation in [facility]. Local anesthetic was infiltrated in the [...] (ABNORMAL) RENAL FUNCTION PANEL (01/19/2021 7:32 AM [facility]) Only the most recent of6 resultswithin the time period is included. BUN 35(H) 7 - 26 mg/dL 01/19/2021 8:27 AM [facility] Creatinine 7.92(H) 0.71 - 1.16 mg/dL 01/19/2021 8:27 AM [facility] Sodium 139 136 - 145 mmol/L 01/19/2021 8:27 AM [facility] Potassium 3.9 3.5 - 4.5 mmol/L 01/19/2021 8:27 AM [facility] Chloride 97(L) 98 - 107 mmol/L 01/19/2021 8:27 AM [facility] CO2 26 22 - 29 mmol/L 01/19/2021 8:27 AM [facility] Glucose 91 70 - 115 mg/dL 01/19/2021 8:27 AM [facility] Albumin 1.4(L) 3.4 - 5.0 g/dL 01/19/2021 8:27 AM [facility] Calcium 8.7 8.4 - 10.2 mg/dL 01/19/2021 8:27 AM [facility] Phosphorus 5.5(H) 2.8 - 5.1 mg/dL 01/19/2021 8:27 AM [facility] Anion Gap 20(H) 8 - 18 01/19/2021 8:27 AM [facility] BUN/Creatinine Ratio 4(L) 7 - 23 01/19/2021 8:27 AM [facility] Osmolality Calculated 296 270 - 300 mOsm/kg 01/19/2021 8:27 AM CDT [facility] eGFR by CKD-EPI 8(L) >=90 mL/min/1.7 3 m2 01/19/2021 8:27 AM CDT [facility] Blood BLOOD SPECIMEN / Unknown Lab Venipuncture / Unknown 01/19/2021 7:32 AM CDT 01/19/2021 8:00 AM CDT Roberto Miller MD LAB - CHEMISTR Y ORDERABLES Performing Organization Address City/[facility]/ZIP Co de Phone Number [address] [address], [place] [phone] * MAGNESIUM BLOOD (01/19/2021 7:32 AM CDT) Only the most recent of10 resultswithin the time period is included. Magnesium 2.1 1.6 - 2.6 mg/dL 01/19/2021 8:27 AM CDT [facility] Blood BLOOD SPECIMEN / Unknown Lab Venipuncture / Unknown 01/19/2021 7:32 AM CDT 01/19/2021 8:00 AM CDT Roberto Miller MD LAB - CHEMISTR Y ORDERABLES Performing Organization Address [facility]/ZIP Co de Phone Number [address] [address], [place] [phone] * CULTURE BLOOD (01/18/2021 5:20 PM CDT) Only the most recent of10 resultswithin the time period is included. Culture No growth day 5 HEATHER 01/24/2021 12:02 AM CDT [facility] Blood PERIPHERAL BLOOD / Unknown Lab Venipuncture / Unknown 01/18/2021 5:20 PM CDT 01/18/2021 5:32 PM CDT Uzair Ortiz MD LAB - MICROBIOLOGY O RDERABLES [facility] [address] [place] [address], [facility] [phone] * XR ABDOMEN KUB PORTABLE (01/18/2021 2:52 PM CDT) Only the most recent of3 resultswithin the time period is included. Anatomical Region Laterality Modality Abdomen Radiographic Jeferson ging 01/18/2021 2:56 PM CDT Impressions 01/18/2021 3:12 PM CDT IMPRESSION: Mild improvement in the dilated small bowel loops with paucity air within the distal colon. Findings suggest improving ileus. Report dictated by Quentin Calvert M.D. (residential leasing agent). I, Dr. JUAN A FARR MD, [facility] have personally reviewed and interpreted this [...] bases are clear. Procedure Note Juan A Farr MD - 01/18/2021 EXAMINATION: XR ABDOMEN KUB [...] ileus. Report dictated by Quentin Calvert M.D. (residential leasing agent). I, Dr. JUAN A FARR MD, [facility] have personally reviewedand interpreted this examination/study. This report was electronically signed by JUAN A FARR MD, [facility] on 01/18/2021 3:12 PM . Uzair [...] on 01/17/2021 12:40 PM Attending(s): Efra Rojas Nuclear Physicist(S): Agnel Macdonald MD Vegetable Farm Worker: Aleksey Hazel MD Diagnosis: ESRD on Peritoneal [...] This allowed the placement of a 5 Grenadian trocar which in turn allowed the placement [...] evaluation, please review the evaluation forms in [facility]. For details on monitored clinical parameters during the intra-service sedation time, please review the procedure nurse documentation in [facility]. I was present for the entire procedure. This report was electronically signed by ANGEL MACDONALD on 01/17/2021 2:07 PM . Procedure Note Angel Macdonald MD - 01/17/2021 This is an Interventional Nephrology procedure performed on 01/17/2021 12:40 PM Attending(s): Efra Rojas Nuclear Physicist(S): Angel Macdonald MD Vegetable Farm Worker: Aleksey Hazel MD Diagnosis: ESRD on Peritoneal [...] This allowed the placement of a 5 Grenadian trocar which in turn allowed the placement [...] response to care. Intra-service sedation start time [id number] and end time was 1310 during which I was present. Total physician intra-service sedation time was 59 minutes. For details on pre-moderate sedation and post-moderate sedation patient evaluation, please reviewthe evaluation forms in [facility]. For details on monitored clinical parameters during the intra-service sedation time, please review the procedurenurse documentation in [facility]. I was present for the entire [...] on 01/17/2021 12:11 PM Attending(s):Efra Ontiveros MD Nuclear Physicist(S): Angel Macdonald MD Vegetable Farm Worker: Aleksey Hazel MD Diagnosis: ESRD on Peritoneal [...] on 01/17/2021 12:11 PM Attending(s):Efra Ontiveros MD Nuclear Physicist(S): Angel Macdonald MD Vegetable Farm Worker: Aleksey Hazel MD Diagnosis: ESRD on Peritoneal [...] Fluid Straw Colorless, Straw 01/16/2021 5:12 PM [facility] Clarity Fluid Hazy(A) Clear 01/16/2021 5:12 PM [facility] Volume Fluid 3.0 mL 01/16/2021 5:12 PM [facility] WBC Fluid 873 Reference Range Not Established /uL 01/16/2021 5:12 PM [facility] RBC Fluid 98 Reference Range Not Established /uL 01/16/2021 5:12 PM [facility] Differential Manual Differential to follow. 01/16/2021 5:12 PM [facility] Fluid PERITONEAL FLUID / Unknown Collection / Unknown 01/16/2021 3:31 PM CDT 01/16/2021 4:08 PM CDT [facility] - 01/16/2021 5:12 PM CDT No reference ranges established for body fluid cell counts. The reference ranges provided are derived from published literature. The test results must be integrated into the clinical context for interpretation. Uzair Ortiz MD LAB - BODY FLUID ORD ERABLES Performing Organization Address [facility] Co de Phone Number [address] [address], [facility] [phone] * DIFFERENTIAL MANUAL FLUID (01/16/2021 3:31 PM CDT) Only the most recent of3 resultswithin the time period is included. Segs % Fluid 81 % 01/16/2021 9:18 PM CDT [facility] Lymphocytes % Fluid 12 % 01/16/2021 9:18 PM CDT [facility] Monocytes % Fluid 6 % 01/16/2021 9:18 PM CDT [facility] Eosinophils % Fluid 1 % 01/16/2021 9:18 PM CDT [facility] Fluid PERITONEAL FLUID / Unknown Collection / Unknown 01/16/2021 3:31 PM CDT 01/16/2021 4:08 PM CDT Uzair Ortiz MD LAB - BODY FLUID ORD ERABLES Performing Organization Address [facility] Co de Phone Number [address] [address], [facility] [phone] * ECHO COMPLETE W BUBBLE STUDY (01/15/2021 2:47 PM CDT) Anatomical Region Laterality Modality Chest Echo 01/15/2021 1:55 PM CDT Narrative Procedure Note Gagandeep Gerardo MD - 01/16/2021 Uzair Ortiz MD ECHOCARDIOGRAPHY RAD IANT * (ABNORMAL) DIFFERENTIAL MANUAL (01/15/2021 4:52 AM CDT) Only the most recent of3 resultswithin the time period is included. WBC (corrected for NRBC) 4.3 10 3/uL 01/15/2021 5:57 AM [facility] Total Cell Count 100 01/15/2021 5:57 AM [facility] Neutrophils Absolute Manual 3.05 1.60 - 7.00 10 3/uL 01/15/2021 5:57 AM [facility] Comment:(BANDS+SEGS) x WBC = NEUT # (ANC) Lymphocyte Absolute Manual 0.82(L) 1.10 - 3.90 10 3/uL 01/15/2021 5:57 AM [facility] Monocytes Absolute Manual 0.30 0.26 - 1.07 10 3/uL 01/15/2021 5:57 AM [facility] Eosinophils Absolute Manual 0.13 0.00 - 0.47 10 3/uL 01/15/2021 5:57 AM [facility] Band % Manual 3 0 - 10 % 01/15/2021 5:57 AM [facility] Neutrophil % Manual 68 35 - 70 % 01/15/2021 5:57 AM [facility] Lymphocyte % Manual 19(L) 20 - 43 % 01/15/2021 5:57 AM [facility] Monocytes % Manual 7 5 - 13 % 01/15/2021 5:57 AM [facility] Eosinophils % Manual 3 0 - 6 % 01/15/2021 5:57 AM [facility] nRBC Manual 1(H) 0 /100 WBC 01/15/2021 5:57 AM [facility] Platelet Estimate Adequate Adequate 01/15/2021 5:57 AM [facility] Ovalocytes 1+(A) None 01/15/2021 5:57 AM [facility] Blood BLOOD SPECIMEN / Unknown Venipuncture / Unknown 01/15/2021 4:52 AM CDT 01/15/2021 5:13 AM [facility] Roberto Miller MD LAB - HEMATOLO GY ORDERABLES [facility] [address] [place] [address], [facility] [phone] * (ABNORMAL) LACTIC ACID BLOOD (01/14/2021 7:17 PM CDT) Only the most recent of4 resultswithin the time period is included. Lactic Acid-Stat 2.3(HH) <=2.0 mmol/L 01/14/2021 7:43 PM CDT [facility] Comment:Critical value previ ously called. Blood BLOOD SPECIMEN / Unknown Venipuncture / Unknown 01/14/2021 7:17 PM CDT 01/14/2021 7:20 PM CDT Roberto Miller MD LAB - CHEMISTR Y ORDERABLES [facility] [address] [place] [address], [facility] [phone] * CT ABDOMEN PELVIS WO CONTRAST (01/14/2021 [...] detected Not detected 01/14/2021 10:53 AM CDT [facility] MICROBIOLOGY Microbiology SPECIMEN FROM NASOPHARYNGEAL STRUCTURE / Unknown Collection / Unknown 01/14/2021 4:51 AM CDT 01/14/2021 5:15 AM CDT Narrative [facility] MICROBIOLOGY - 01/14/2021 10:53 AM CDT This nucleic acid amplification assay performance was validated by [facility]. This test has been authorized [...] Miller MD LAB - MICROBIO LOGY ORDERABLES [facility] MICROBIOLOGY [address] [place] [address], [facility] [phone] * XR CHEST 1VW PORTABLE (01/14/2021 3:02 [...] is normal. Dictated by Christian Vega DO (residential leasing agent). Dr. JUAN A Mcnamara MD, FRANGI have [...] is normal. Dictated by Christian Vega DO (residential leasing agent). Dr. JUAN A Mcnamara MD, FRANGI have personally reviewedand interpreted this examination/study. This report was electronically signed by JUAN A FARR MD, FRCR on 01/14/2021 11:17 AM . Roberto Miller MD DIAGNOSTIC JEFERSON GING ORDERABLES * CULTURE BLOOD FUNGUS (01/14/2021 2:08 AM CDT) Only the most recent of2 resultswithin the time period is included. Culture No fungus isolated HEATHER 02/27/2021 10:55 AM SUPERVISOR FISH BAIT PROCESSING [facility] MICROBIOLOGY Blood PERIPHERAL BLOOD / Unknown Venipuncture / Unknown 01/14/2021 2:08 AM CDT 01/14/2021 2:26 AM CDT Roberto Miller MD LAB - MICROBIO LOGY ORDERABLES [facility] MICROBIOLOGY [address] [place] [address], [facility] [phone] * PATHOLOGY SMEAR BODY FLUID (01/13/2021 11:39 PM CDT) Only the most recent of2 resultswithin the time period is included. Pathology Diff Review DIFFERENTIAL REVIEW - CONFIRMED DIFFERENTIAL REVIEW - CONFIRMED 11:54 AM CDT [facility] Comment: Final diagnosis: Peritoneal fluid, [...] on PD (started 06/2019), HTN, right sided Pulaski syndrome, and open cardiac surgery at age 2 , depression, who presented via family drop off for hypogastric sharp abdominal pain for past 4 days associated with + nausea and 10x non-bloody +bilious vomiting and 11 episodes of non-bloody diarrhea w. lightheadedness upon standing. Lety Theodore MD Caustic Purification Operator Clinical Core Laboratory [facility] Fluid PERITONEAL FLUID / Unknown Collection / Unknown 01/13/2021 11:39 PM CDT 01/14/2021 7:17 AM CDT Roberto Miller MD LAB - PATHOLOG Y/CYTOLOGY ORDERABLES [address] [address], [facility] [phone] * GRAM STAIN (LAB ORDERED) (01/13/2021 11:39 PM CDT) Gram Stain Moderate Gram-negative bacilli 01/14/2021 4:53 AM CDT [facility] Gram Stain Heavy Polymorphonuclear cells 01/14/2021 4:53 AM CDT [facility] Microbiology PERITONEAL FLUID / Unknown Collection / Unknown 01/13/2021 11:39 PM CDT 01/14/2021 12:31 AM CDT Leonadro Blanco MD LAB - MICROBIOLOGY ORDERABLES Performing Organization Address City/[facility]/ZIP Co de Phone Number [address] [address], [facility] [phone] * (ABNORMAL) CULTURE FLUID+GRAM STAIN (01/13/2021 11:39 PM CDT) Only the most recent of2 resultswithin the time period is included. Culture Growth from blood culture bottle Klebsiella pneumoniae(AA) HEATHER 01/15/2021 11:34 PM CDT [facility] MICROBIOLOGY Gram Stain Heavy Polymorphonuclear cells(AA) 01/15/2021 11:34 PM CDT [facility] MICROBIOLOGY Gram Stain Moderate Gram-negative bacilli(AA) 01/15/2021 11:34 PM CDT [facility] MICROBIOLOGY Fluid PERITONEAL DIALYSATE SPECIMEN / Unknown Collection / Unknown 01/13/2021 11:39 PM CDT 01/14/2021 12:30 AM CDT Narrative [facility] MICROBIOLOGY - 01/15/2021 11:34 PM CDT Gram stain previously reported and reviewed as stat test [id number] Organism Antibiotic Method Susceptibility Klebsiella pneumoniae Amikacin [...] Leonardo Blanco MD LAB - MICROBIOLOGY ORDERABLES [facility] MICROBIOLOGY [address] [place] [address], [facility] [phone] * XR ABDOMEN KUB (01/13/2021 9:39 PM CDT) Anatomical Region Laterality Modality Abdomen Radiographic Jeferson ging 01/13/2021 11:3 2 PM CDT Impressions 01/14/2021 10:32 AM CDT IMPRESSION: Gaseous dilation of multiple loops of small bowel measuring up to 3.7 cm with possibility of ileus or subacute obstruction is to be considered. Report dictated by Christian Vega DO (residential leasing agent). IDr. JUAN A MD, FRCR have personally [...] considered. Report dictated by Christian Vega DO (residential leasing agent). I, Dr. JUAN A FARR MD, [facility] have personally reviewedand interpreted this examination/study. This report was electronically signed by JUAN A FARR MD, CR on 01/14/2021 10:32 AM . Melania Russell PA-C DIAGNOSTIC IMAGING O RDERABLES * (ABNORMAL) PT-INR [facility] (01/13/2021 8:31 PM CDT) PT 15.5(H) 12.1 - 14.8 Seconds 01/13/2021 9:03 PM CDT [facility] INR 1.3 See Comment 01/13/2021 9:03 PM CDT [facility] Comment:The suggested therap eutic range for standard coumadin (warfarin) therapy is an INR of 2.0-3.0. For high-risk patients (Mechanical Mitral Valve Prosthesis, etc.), the suggested prophylactic therapeutic range is an INR of 2.5-3.5. Blood BLOOD SPECIMEN / Unknown Venipuncture / Unknown 01/13/2021 8:31 PM CDT 01/13/2021 8:50 PM CDT Leonardo Blanco MD LAB - COAGULATION O RDERABLES [facility] [address] [place] [address], [facility] [phone] * LIPASE BLOOD (01/13/2021 6:20 PM CDT) Pathologist [facility] Lipase 15 8 - 78 U/L 01/13/2021 6:49 PM CDT [facility] Blood BLOOD SPECIMEN / Unknown Venipuncture / Unknown 01/13/2021 6:20 PM CDT 01/13/2021 6:27 PM CDT Leonardo Blanco MD LAB - CHEMISTRY ORD ERABLES [address] [address], [facility] [phone] * HEPATITIS C AB SCREEN RFLX NAAT QUANT (01/13/2021 6:19 PM CDT) [facility] Hepatitis C Antibody Non-react jammie Non-reac tive 01/13/2021 7:53 PM CDT [facility] Comment:Hepatitis C Antibody screen indicates no [...] Blanco MD LAB - CHEMISTRY ORD ERABLES [address] [address], [facility] [phone] * (ABNORMAL) C-REACTIVE PROTEIN (06/29/2020 3:16 AM SUPERVISOR FISH BAIT PROCESSING) [facility] C-Reactive Protein 13.5(H) <=0.5 mg/dL 06/29/2020 4:29 AM SUPERVISOR FISH BAIT PROCESSING [facility] Blood BLOOD SPECIMEN / Unknown Lab Venipuncture / Unknown 06/29/2020 3:16 AM SUPERVISOR [employer] BAIT PROCESSING 06/29/2020 4:00 AM SUPERVISOR FISH BAIT PROCESSING Leopoldo Cao MD LAB - CHEMISTRY ORDE RABLES Performing Organization Address City/[facility]/ZIP Co de Phone Number [address] [address], [facility] [phone] * (ABNORMAL) ERYTHROCYTE SEDIMENTATION RATE (06/29/2020 3:16 AM SUPERVISOR [employer] BAIT PROCESSING) Erythrocyte Sedimentation Rate Westergren 49(H) 0 - 15 MM/HR 06/29/2020 4:08 AM [facility] Blood BLOOD SPECIMEN / Unknown Lab Venipuncture / Unknown 06/29/2020 3:16 AM SUPERVISOR FISH BAIT PROCESSING 06/29/2020 3:32 AM SUPERVISOR FISH BAIT PROCESSING Leopoldo Cao MD LAB - HEMATOLOGY ORD ERABLES Performing Organization Address [facility]/ZIP Co de Phone Number [address] [address], [place] [phone] * SARS-COV-2 (COVID-19)+INFLU A+B PCR RAPID (06/28/2020 6:08 AM SUPERVISOR FISH [employer] PROCESSING) COVID-19 PCR Not detected Not detected 06/29/19 6:52 AM [facility] Influenza A Rapid ILENE Not Detected Not Detected 06/28/2020 6:52 AM [facility] Influenza B ILENE Rapid Not Detected Not Detected 06/28/2020 6:52 AM [facility] Microbiology SPECIMEN FROM NASOPHARYNGEAL STRUCTURE / Unknown Collection / Unknown 06/28/2020 6:08 AM SUPERVISOR FISH BAIT PROCESSING 06/28/2020 6:26 AM SUPERVISOR FISH BAIT PROCESSING [facility] - 06/28/2020 6:52 AM SUPERVISOR FISH BAIT PROCESSING Influenza assay performed by [employer]. [...] acid amplification assay performance was validated by [facility]. This test has been authorized by the [...] EUA assay are available upon request. Gagandeep Best MD LAB - [facility] [address] [address], [facility] [phone] * SUSCEPTIBILITY FUNGUS/YEAST (06/28/2020 6:07 AM SUPERVISOR FISH BAIT PROCESSING) Pathologist [facility] Prelim Report SEE NOTE 07/05/2020 5:07 PM CDT PT [employer] ([facility]) Comment: Specimen received and in progress. YSIC Anidulafungin 2 Suscept Micafungin 1 Suscept Caspofungin 0.25 Suscept 5-Fluorocytosine <=0.06 None Posaconazole 0.016 None Voriconazole <=0.008 Suscept Itraconazole 0.03 None Fluconazole 0.25 Suscept Amphotericin B 0.25 None Performed by [facility], [address] [place] [id number] [email or web address], Agatha Vale MD, Lab. Director Final Report SEE NOTE 07/05/2020 5:07 PM CDT PT [employer] ([facility]) Comment: Kassidy parapsilosis Organism identified by client [facility]SIC Anidulafungin 2 Suscept Micafungin 1 Suscept Caspofungin 0.25 Suscept 5-Fluorocytosine <=0.06 None Posaconazole 0.016 None Voriconazole <=0.008 Suscept Itraconazole 0.03 None Fluconazole 0.25 Suscept Amphotericin B 0.25 None Performed by [facility], [address] [id number] [email or web address], Agatha Vale MD, Lab. Director Fluid PERITONEAL DIALYSATE SPECIMEN / Unknown Collection / Unknown 06/28/2020 6:07 AM SUPERVISOR FISH BAIT PROCESSING 06/28/2020 10:23 AM SUPERVISOR FISH BAIT PROCESSING Narrative [facility] ([facility]) - 07/05/2020 5:07 PM CDT HEATHER=Minimum Inhibitory Concentration MEC=Minimum Effective Concentration HEATHER=Minimum Inhibitory Concentration MEC=Minimum Effective Concentration HEATHER=Minimum Inhibitory Concentration MEC=Minimum Effective Concentration Gagandeep Best MD LAB - MICROBIOLOGY O RDERABLES [facility] ([facility]) [address] [place] [address], [facility] * XR CHEST 1VW (06/28/2020 3:13 AM SUPERVISOR FISH BAIT PROCESSING) Anatomical Region Laterality Modality Chest Radiographic Jeferson ging 06/28/2020 3:14 AM SUPERVISOR FISH BAIT PROCESSING Impressions 06/28/2020 8:27 AM SUPERVISOR FISH BAIT PROCESSING IMPRESSION: 1.No focal consolidation. 2.Fractures of the inferior-most median sternotomy wire. Dictated by Britany Gee DO (residential leasing agent). I, Dr. CHOLO TONEY MD have personally reviewed and interpreted this examination/study. This report was electronically signed by CHOLO TONEY MD on 06/28/2020 8:27 AM . Narrative 06/28/2020 8:27 AM SUPERVISOR FISH BAIT PROCESSING ORDER DATE: 06/28/2020 3:14 AM EXAMINATION: XR [...] sternotomy wire. Dictated by Britany Gee DO (residential leasing agent). I, Dr. CHOLO TONEY MD have personally reviewed and interpreted this examination/study. This report was electronically signed by CHOLO TONEY MD on06/28/2020 8:27 AM . Gagandeep Best MD DIAGNOSTIC IMAGING O RDERABLES * LACTIC ACID BLOOD REFLEX TO REPEAT (06/28/2020 2:50 AM SUPERVISOR FISH BAIT PROCESSING) Pathologist [facility] Lactic Acid-Stat 1.3 0.5 - 2.0 mmol/L 06/28/2020 3:25 AM SUPERVISOR FISH BAIT PROCESSING [facility] Blood BLOOD SPECIMEN / Unknown Venipuncture / Unknown 06/28/2020 2:50 AM SUPERVISOR FISH BAIT PROCESSING 06/28/2020 3:02 AM SUPERVISOR FISH BAIT PROCESSING Gagandeep Best MD LAB - CHEMISTRY KRISTA CARE[facility] Organization Address City/State/ZIP Co de Phone Number [facility] [address] [place] [address], [facility] [phone] * (ABNORMAL) BLOOD GASES ELIDA (06/28/2020 2:50 AM SUPERVISOR FISH BAIT PROCESSING) Pathologist [facility] pH Mixed Venous 7.44(H) 7.30 - 7.40 06/28/2020 3:03 AM [facility] pCO2 Mixed Venous 41 40 - 46 mmHg 06/28/2020 3:03 AM [facility] pO2 Mixed Venous 34(L) 35 - 42 mmHg 06/28/2020 3:03 AM [facility] HCO3 Mixed Venous 27.0(H) 22.0 - 26.0 mmol/L 06/28/2020 3:03 AM [facility] TCO2 Mixed Venous 28.2 25.0 - 29.0 mmol/L 06/28/2020 3:03 AM [facility] Base Excess Venous 2.6(H) -2.0 - 2.0 mmol/L 06/28/2020 3:03 AM [facility] Hemoglobin Mixed Venous 14.5 13.5 - 17.5 g/dL 06/28/2020 3:03 AM [facility] Oxyhemoglobin Mixed Venous 67.5 66.0 - 77.0 % 06/28/2020 3:03 AM [facility] Carboxyhemoglobin Venous 1.1 0.0 - 3.0 % 06/28/2020 3:03 AM [facility] Methemoglobin 0.4 0.0 - 2.0 % 06/28/2020 3:03 AM [facility] FI O2 Mixed Venous 21.0 % 2020 3:03 AM [facility] Blood BLOOD SPECIMEN / Unknown Venipuncture / Unknown 06/28/2020 2:50 AM SUPERVISOR FISH BAIT PROCESSING 06/28/2020 3:01 AM SUPERVISOR FISH BAIT PROCESSING Gagandeep Best MD LAB - BLOOD GASES OR DERABLES Performing Organization Address City/State/[facility] Co de Phone Number [facility] [address] [place] [address], [facility] [phone] Care Teams Mason Helper Relationship Specialty Start Date End Date Bernadette Robertson MD [address] [facility]/ [address] [place] [phone] PCP - General 11/07/21
--- OUTSIDE RECORDS SUMMARY | 2024-06-30 02:00 | XMS_ITS | Encounter Summary ---
Author Organization [facility] Address [address] [place] [address] Care Team Providers Care Pencil Maker Name Role Phone Bernadette Robertson MD Primary Care Provider [phone] Encounter Details Date Type Department Care Team (Late st Contact Info) Description 03/05/2021 Telephone [facility] [address] [place] [address] Cr Titus MD [address] [place] [place] [id number] Social History Tobacco Use Types Packs/Day Years [...] on filedocumented in this encounter Care Teams Pencil Maker Relationship Specialty Start Date End Date Bernadette Robertson MD [address] [place] [address] PCP - General 11/07/21 documented as of this encounter
--- OUTSIDE RECORDS SUMMARY | 2024-06-30 02:00 | XMS_ITS | Patient Health Record ---
Author Organization [facility] As scroll kit Address [address] [place] [address] Care Team Providers Care Correctional Nurse Name Role Phone Galen Hunter MD Primary Care Provider Unavail able Tash Saucedo Unavailable [phone] Migration, Provider Unavailable Unavailable Allergies No Known Allergies Reason For Referral No Information Medications Medication SIG (Take, Route, Frequency, Duration) Notes Start Date End Date Status Sertraline HCl 100 MG 1 tablet Oral Once a day for 90 days Active traZODone HCl 50 MG 1 tablet at bedtime Oral at bedtime for 90 days Active Minoxidil 2.5 mg Oral 07/10/2023 Ac tive Mirtazapine 45 MG 1 tablet at bedtime Oral Once a day for 90 days Active Lisinopril 20 MG Oral 07/10/2023 Ac tive Velphoro 500 mg Oral 07/10/2023 Act jammie Lactulose 10 GM/15ML Oral 07/10/2023 Active Famotidine 20 MG Oral 07/10/2023 Ac tive Sevelamer Carbonate 2.4 gram Oral *Pick strength-form from [employer] for eRX* 07/10/2023 Active Carvedilol 25 MG Oral 07/10/2023 Ac tive LOKELMA 10 GRAM ORAL POWDER PACKET *Reorder from [employer] for eRx and Interaction Alerts* 07/10/2023 Active Mirtazapine 45 MG TAKE 1 TABLET BY MOUTH AT BEDTIME FOR 90 DAYS for 90 Active Ondansetron HCl 4 MG Oral 07/10/2023 Active amLODIPine Besylate 10 MG Oral 07/10/2023 Active Lisinopril 40 MG Oral 07/10/2023 No t-Taking Auryxia 210 mg iron Oral *Pick strength-form from [employer] for eRX* 07/10/2023 Active traZODone HCl 50 MG 1 tablet at bedtime Oral at bedtime for 90 days Active Immunizations Vaccine Route Administration Date Status Comme nts OPV Unknown 01/21/1994 Administered Elizabeth Covid-19 Vaccine Unknown 07/05/2020 Administere d Influenza virus vaccine, quadrivalent (IIV4), split virus, 0.25 mL dosage Unknown 01/19/2020 Administered DTP Unknown 01/21/1994 Administered Social History Tobacco Use: Social History Observation Description Date Details (start date - stop date) Former Smoker NA - NA Sex Assigned At : Social History Observation Description Sex Assigned At Male Tobacco Control (Standard) Question Answer Notes Tobacco use: Former smoker Problems Problem Type SNOMED Code ICD Code Onset Dates Problem Status W/U Status Risk Notes Problem Cannabis dependence (42957495) Cannabis dependence, uncomplicated (F12.20) 3 Active confirmed Problem Mild recurrent major depression (43525774) Major depressive disorder, recurrent, mild (F33.0) 4 Active confirmed Problem Generalized anxiety disorder (89619080) Generalized anxiety disorder (F41.1) 4 Active confirmed Problem Primary insomnia (0638022) Primary insomnia (F51.01) 4 Active confirmed Problem Long-term current use of drug therapy (040937734) Other mcc (current) drug therapy (Z79.899) 4 Active confirmed Problem 49767130 Elevated blood pressure reading (R03.0) Active confirmed Vital Signs Heart Rate 62 /min 04/19/2024 Height-cm 162.56 cm 04/19/2024 Blood pressure diastolic 84 mm Hg 04/19/2024 Weight-kg 53.61 kg 04/19/2024 Height 64.00 in 04/19/2024 Blood pressure systolic 152 mm Hg 04/19/2024 Weight 118.2 lbs 04/19/2024 BMI 20.29 kg/m2 04/19/2024 Encounters Encounter Location Date Provider Diagnosis [facility] [employer] [facility] [address] [facility] [address] [place] [address] 07/10/2023 Tash Saucedo Generalized anxiety disorder F41.1 ; Primary insomnia F51.01 ; Other mcc (current) drug therapy Z79.899 and Major depressive disorder, recurrent, mild F33.0 [facility] [address] [address] 11/16/2023 Tash Saucedo Major depressive disorder, recurrent, mild F33.0 ; Generalized anxiety disorder F41.1 ; Primary insomnia F51.01 ; Cannabis dependence, uncomplicated F12.20 and Other continuous churn buttermaker (current) drug therapy Z79.899 [facility] [address] [address] 02/15/2024 [facility]ash [facility]cedo [facility] [address] [address] 04/19/2024 Tash Saucedo Generalized anxiety disorder F41.1 ; Major depressive disorder, recurrent, mild F33.0 ; Primary insomnia F51.01 ; Cannabis dependence, uncomplicated F12.20 ; Other mcc (current) drug therapy Z79.899 and Elevated blood pressure reading R03.0 [facility] [address] [address] 08/28/2023 Provider Migration [facility] [employer] [facility] [address] [address] 09/05/2023 Provider Migration [facility] [address] [facility] [address] [address] 09/06/2023 Provider Migration Assessments Encounter Date Diagnosis (ICD Code) Assessment Notes Treatment Notes Treatment Clinical Notes Section Notes 07/10/2023 Major depressive disorder, recurrent, mild (ICD-10 - F33.0) 07/10/2023 Generalized anxiety disorder (ICD-10 - F41.1) 07/10/2023 Primary insomnia (ICD-10 - F51.01) 07/10/2023 Other mcc (current) drug therapy (ICD-10 - Z79.899) 11/16/2023 Major depressive disorder, recurrent, mild (ICD-10 [...] - educated on rx F51.01: Primary insomnia 04/19/2024 Generalized anxiety disorder (ICD-10 - F41.1) [...] mg at bedtime - educated on rx 11/16/2023 Primary insomnia (ICD-10 - F51.01) Insomnia: [...] - educated on rx F51.01: Primary insomnia 04/19/2024 Major depressive disorder, recurrent, mild (ICD-10 [...] mg at bedtime - educated on rx 11/16/2023 Cannabis dependence, uncomplicated (ICD-10 - F12.20) [...] - educated on rx F51.01: Primary insomnia 04/19/2024 Cannabis dependence, uncomplicated (ICD-10 - F12.20) [...] mg at bedtime - educated on rx 11/16/2023 Other mcc (current) drug therapy (ICD-10 - Z79.899) Medication [...] - educated on rx F51.01: Primary insomnia 04/19/2024 Other mcc (current) drug therapy (ICD-10 - Z79.899) Medication [...] mg at bedtime - educated on rx 11/16/2023 Other Sertraline Oral Tablet (SERTRALINE - [...] rx F51.01: Primary insomnia Plan Of Treatment Next Appt Details Provider Name:Tash Saucedo , 07/11/2024 04:00:00 PM, [facility], [place], [address], Insurance Providers Payer Name Payer Address Payer Phone Subscriber Number Group Number Insured Name Patient Relationship to Insured Coverage Start Date Coverage End Date Medicare-I l Medicare [address] [place] [address] [id number] CHANTEL KIM Self - patient is the insured Medicaid-I l Medicaid [address] [address] [place] [address] [id number] CHANTEL KIM Self - patient is the insured Medical (General) History Medical History History ICD Code Problems: Cannabis dependence Generalized anxiety disorder Long-term drug therapy Mild recurrent major depression Primary insomnia Severe recurrent major depression Weight loss , Surgical History Surgery Date(Month/Year) Plastic operation on hand with implant ( 056475137) Transfusion bld/bld compnt (77372) Kidney biopsy (4872924) Open heart surgery (6320569) 2 yrs old Heart surgery 04/20/1992
--- OUTSIDE RECORDS SUMMARY | 2024-06-30 02:00 | XMS_ITS | Encounter Summary ---
Author Organization [facility] Address [address] [place] [address] Care Team Providers Care Avionics Safety Inspector Name Role Phone Bernadette Robertson MD Primary Care Provider [phone] Encounter Details Date Type Department Care Team (Late st Contact Info) Description 05/31/2021 Telephone [facility] [address] [place] [address] Cr Titus MD [address] [place] [phone] Social History Tobacco Use Types Packs/Day Years [...] COVID-19? No / Unsure 05/01/2021 8:23 AM FOUNDRY TECHNICIAN documented as of this encounter Functional Status [...] on filedocumented in this encounter Care Teams Avionics Safety Inspector Relationship Specialty Start Date End Date Bernadette Robertson MD [address] [place] [address] PCP - General 11/07/21 documented as of this encounter
--- OUTSIDE RECORDS SUMMARY | 2024-06-30 02:00 | XMS_ITS | Encounter Summary ---
Author Organization [facility] Address [address] [place] [address] Care Team Providers Care Traffic Rate Computer Name Role Phone Bernadette Robertson MD Primary Care Provider [phone] Bernadette Robertson MD Primary Care Provider [phone] Encounter Details Date Type Department Care Team (Late st Contact Info) Description 03/01/2021 Telephone [facility] [address] [place] [address] Cr Titus MD [address] [phone] Social History Tobacco Use Types Packs/Day Years [...] on filedocumented in this encounter Care Teams Traffic Rate Computer Relationship Specialty Start Date End Date Bernadette Robertson MD [address] [facility] [place] [address] PCP - General 07/02/20 03/04/21 Bernadette Robertson MD [address] [facility] [place] [address] PCP - General 11/07/21 documented as of this encounter
--- OUTSIDE RECORDS SUMMARY | 2024-06-30 02:00 | XMS_ITS | Referral Summary ---
Author Organization [facility] [employer] Address [address] [facility] [place] [address] Care Team Providers Care Jewel Stringer Name Role Phone Bernadette Robertson MD Primary Care Provider [phone] Source Comments [facility] [employer],non-owned Affiliates and Associated Physician Practices is amultiple site organization consisting of ambulatory clinics and hospital sitesin [place], [place], [place] and [place]. This disclosure is being madepursuant to the Care Everywhere program and may not contain all information available regarding this patient. Last updated 18.[facility] [employer] Allergies No known active allergies Medications * [...] 05/15/2021 Overview (05/15/2021): Chantel Kim 1990 Referring Machine Captain: Merlin Quezada Listing Date: Dialysis Info: Type: Time: 746 days ( 04/30/2019) Blood Type: O POS Body mass index is 18.42 kg/m . ALERTS Residential Appliance Repair Technician: Past Medical History: Diagnosis Date Chronic kidney disease Depression psychiatrist Dr. Tash Saucedo once a month 5-6 months. Difficulty swallowing difficult swallowing large pills. 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 Suicidal ideation Suicide attempt 2016 was not hospitalized. Past Surgical History: Procedure Laterality Date Heart Valve Surgery 1993 born with hole in heart, had open heart surgery at [facility]. No longer follows with a area director INSERTION DIALYSIS CATHETER N/A 03/12/2021 N/A; LAPAROSCOPIC PLACEMENT PERITONEAL DIALYSIS CATHETER AND LYSIS OF ADHESIONS IR PERITONEAL TUNNEL CATH PLACE 08/22/[address] 08/22/2020 Efra Ontiveros MD [facility] IVR IR PERITONEAL TUNNEL CATH PLACE 02/25/[address] CATH [address] 02/25/2021 Efra Ontiveros MD [facility] IVR REMOVAL FOREIGN BODY N/A 06/30/2020 N/A; PD Catheter Removal Renal Biopsy 2019 [facility] Renal [facility] Social History Socioeconomic History Marital status: [...] relationships, depression, and insecurities. Patient states to [employer] [employer] he has suicidal ideations. Patient is not under the care of a counselor, therapist, or psychiatrist. Patient states he is seeing a counselor, Dr. Tash Saucedo. Upon further research, she is a VEGETABLE WASHING MACHINE OPERATOR who prescribes his medications. Patient states he went to [facility] in [place] but thinks they dropped them because he missed an appointment. Patient states he has MDD. Patient questioned the assessment questions. When COMMERCIAL DRIVER mentioned obtaining records from [facility], patient asked why it was necessary. Patient felt those records were personal. Coping style, skills, and adaptation to illness: Patient sleeps to cope with stress. Patient states he uses melatonin and edibles to help him sleep. Patient states some of his stressors are the future, the past, and transplant Clinical Social Work Impression: It is the impression of this social service coordinator that Chantel Kim has several positive factors for Kidney transplant candidacy including sufficient insurance coverage, adequate support system, and appropriate discharge plan. - Patient states he has MDD. Attempted suicide twice in the last 10 years due to relationships, depression, and insecurities. Patient uses edibles to help him cope, and sleep. Patient states his stressors are the future, the past, and transplant. Plan: disposal worker to provide supportive services as needed. Patient appears to be a reasonable candidate for transplant from a psychosocial perspective. Post transplant arrangement forms are needed prior to being listed. Psychiatric Consult Recommended: Yes related to:Substance Abuse, Unstable Mental Health, Coping Strategies and Comprehension Concerns. 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 [...] on file Medical Devices Implanted Type Area Blending Kettle Tender Device Identifier Shelf Expiration Date Model / Serial / Lot Kit Durathane Drflw Embosafe Chrnc Dlys Implanted:Qty: 1 on 06/29/2020 at [facility] Right: Chest [employer] 08/17/2022 [id number] / / [id number] Kit Durathane Drflw Embosafe Chrnc Dlys Implanted:Qty: 1 on 01/17/2021 at [facility] Right: Chest [employer] 05/20/2023 [id number] / / [id number] Description: Peritoneal Dialysis Catheter Implanted:Qty: 1 on 03/12/2021 by Cr Titus MD at [facility] N/A: Abdomen 05/17/2024 [id number] / / [id number] Procedures Procedure Name Priority Date/Time Associated Diagnosis Comments HEPATITIS C ANTIBODY Routine 05/01/2021 9:21 AM COST MANAGER Pre-transplant evaluation for kidney transplant HIV-1 HIV-2 ANTIBODY + HIV P24 AG PANEL Routine 05/01/2021 9:21 AM COST MANAGER Pre-transplant evaluation for kidney transplant from Last 3 Months or Most Recently Relevant to Health Maintenance Results * HIV-1 HIV-2 ANTIBODY + HIV P24 AG PANEL (05/01/2021 9:21 AM COST MANAGER) HIV Antigen/Antibod y 1 & 2 Non-reacti ve Non-react jammie 05/01/2021 11:08 AM COST MANAGER [facility] Comment:No Laboratory eviden ce of HIV infection. Blood BLOOD SPECIMEN / Unknown Lab Venipuncture / Unknown 05/01/2021 9:21 AM COST MANAGER 05/01/2021 9:48 AM COST MANAGER Alexandra Ramachandran MD LAB - CHEMISTRY [facility] [address] [place] [address], [place] [phone] * HEPATITIS C ANTIBODY (05/01/2021 9:21 AM COST MANAGER) Hepatitis C Antibody Non-react jammie Non-reac tive 05/01/2021 11:08 AM COST MANAGER [facility] Comment:Hepatitis C Antibody screen indicates no serologic evidence of past or current infection with Hepatitis C Virus. Patients with unexplained liver disease who are immunocompromised or suspected of having acute Hepatitis C infection may benefit from Nucleic Acid Test (ELMO) for Hepatitis C Viral RNA to confirm Hepatitis C status. Blood BLOOD SPECIMEN / Unknown Lab Venipuncture / Unknown 05/01/2021 9:21 AM COST MANAGER 05/01/2021 9:48 AM COST MANAGER Alexandra Ramachandran MD LAB - CHEMISTRY [facility] [address] [address], [place] [phone] from Last 3 Months or Most Recently Relevant to Health Maintenance Administered Medications Advance Directives * Full Code (Latest Code Status on File) Date Activated Date Inactivated Comments 01/14/2021 12:11 AM 01/19/2021 2:47 PM * Full Code Date Activated Date Inactivated Comments 06/28/2020 3:21 PM 07/02/2020 2:26 PM Care Teams Jewel Stringer Relationship Specialty Start Date End Date Bernadette Robertson MD [address] [place] [address] PCP - General 11/07/21
--- OUTSIDE RECORDS SUMMARY | 2024-06-30 02:00 | XMS_ITS | Clinical Summary ---
Author Organization [facility] Address [address] [place] [address] Care Team Providers Care Fitter Machinist Name Role Phone None, Provider MD Primary [...] complete this topic Insurance MEDICAID Care Teams Fitter Machinist Relationship Specialty Start Date End Date None, ProviderMD PCP - General 01/11/21
--- OUTSIDE RECORDS SUMMARY | 2024-06-30 02:00 | XMS_ITS | Encounter Summary ---
Author Organization [facility] Address [address] [facility] [place] [address] Care Team Providers Care General Clerk Name Role Phone Bernadette Robertson MD Primary Care Provider [phone] Encounter Details Date Type Department Care Team (Late st Contact Info) Description 08/12/2021 Telephone [facility] [address] [place] [address] Cr Titus MD [address] [phone] Social History Tobacco Use Types Packs/Day Years [...] on filedocumented in this encounter Care Teams General Clerk Relationship Specialty Start Date End Date Bernadette Robertson MD [address] [place] [address] PCP - General 11/07/21 documented as of this encounter
--- OUTSIDE RECORDS SUMMARY | 2024-06-30 02:00 | XMS_ITS | Encounter Summary ---
Author Organization [facility] Address [address] [place] [address] Care Team Providers Care Finance Director Name Role Phone Bernadette Robertson MD Primary Care Provider [phone] Bernadette Robertson MD Primary Care Provider Encounter Details Date Type Department Care Team (Late st Contact Info) Description 03/04/2021 Telephone [facility] [address] [place] [address] Cr Titus MD [address] [phone] Social History Tobacco Use Types Packs/Day Years [...] on filedocumented in this encounter Care Teams Finance Director Relationship Specialty Start Date End Date Bernadette Robertson MD [address] [facility] [place] [address] PCP - General 07/02/20 03/04/21 Bernadette Robertson MD [address] [place] [place] [address] PCP - General 11/07/21 documented as of this encounter
--- OUTSIDE RECORDS SUMMARY | 2024-06-30 02:00 | XMS_ITS | Encounter Summary ---
Author Organization [facility] Address [address] [place] [address] Care Team Providers Care Director Television Name Role Phone Bernadette Robertson MD Primary Care Provider [phone] Bernadette Robertson MD Primary Care Provider [phone] Encounter Details Date Type Department Care Team (Late st Contact Info) Description 02/28/2021 Telephone [facility] [address] [place] [address] Cr Titus MD [address] [phone] Social History Tobacco Use Types Packs/Day Years [...] on filedocumented in this encounter Care Teams Director Television Relationship Specialty Start Date End Date Bernadette Robertson MD [address] [place] [place] [address] PCP - General 07/02/20 03/04/21 Bernadette Robertson MD [address] [place] [place] [address] PCP - General 11/07/21 documented as of this encounter
--- OUTSIDE RECORDS SUMMARY | 2024-06-30 02:00 | XMS_ITS | Encounter Summary ---
Author Organization [facility] Address [address] [facility] [place] [address] Care Team Providers Care Executive Receptionist Name Role Phone Bernadette Robertson MD Primary Care Provider [phone] Encounter Details Date Type Department Care Team (Late st Contact Info) Description 08/15/2021 Telephone [facility] [address] [place] [address] Cr Titus MD [address] [phone] Social History Tobacco Use Types Packs/Day Years [...] on filedocumented in this encounter Care Teams Executive Receptionist Relationship Specialty Start Date End Date Bernadette Robertson MD [address] [place] [address] PCP - General 11/07/21 documented as of this encounter
--- OUTSIDE RECORDS SUMMARY | 2024-06-30 02:00 | XMS_ITS | Encounter Summary ---
Author Organization [facility] Address [address] [facility] [place] [address] Care Team Providers Care First Crusher Name Role Phone Bernadette Robertson MD Primary Care Provider [phone] Encounter Details Date Type Department Care Team (Late st Contact Info) Description 08/14/2021 Telephone [facility] [address] [place] [address] Cr Titus MD [address] [phone] Social History Tobacco Use Types Packs/Day Years [...] on filedocumented in this encounter Care Teams First Crusher Relationship Specialty Start Date End Date Bernadette Robertson MD [address] [place] [address] PCP - General 11/07/21 documented as of this encounter
--- OUTSIDE RECORDS SUMMARY | 2024-06-30 02:00 | XMS_ITS | Encounter Summary ---
Author Organization [facility] Address [address] [place] [address] Care Team Providers Care Mask Designer Name Role Phone Bernadette Robertson MD Primary Care Provider [phone] Bernadette Robertson MD Primary Care Provider [phone] Encounter Details Date Type Department Care Team (Late st Contact Info) Description 03/04/2021 Telephone [facility] [address] [place] [address] Cr Titus MD [address] [phone] Social History Tobacco Use Types Packs/Day Years [...] on filedocumented in this encounter Care Teams Mask Designer Relationship Specialty Start Date End Date Bernadette Robertson MD [address] [address] PCP - General 07/02/20 03/04/21 Bernadette Robertson MD [address] [address] PCP - General 11/07/21 documented as of this encounter
--- OUTSIDE RECORDS SUMMARY | 2024-06-30 02:00 | XMS_ITS | Encounter Summary ---
Author Organization [facility] Address [address] [place] [address] Care Team Providers Care Adjunct Trainer Name Role Phone Bernadette Robertson MD Primary Care Provider [phone] Encounter Details Date Type Department Care Team (Late st Contact Info) Description 03/07/2021 Telephone [facility] [address] [place] [address] Cr Titus MD [address] [place] [phone] Social History Tobacco Use Types Packs/Day Years [...] on filedocumented in this encounter Care Teams Adjunct Trainer Relationship Specialty Start Date End Date Bernadette Robertson MD [address] [place] [address] PCP - General 11/07/21 documented as of this encounter
== END 2024-06-30 02:36 | disposition home or self-care (01) ==
LOC: ANHED 01:58
PROVIDERS: Emergency Provider Emergency Medicine; PCP Emergency Medicine
DX: I12.0 Hypertensive chronic kidney disease with stage 5 chronic kidney disease or end stage renal disease (principal); N18.6 End stage renal disease; Z99.2 Dependence on renal dialysis; Z20.822 Contact with and (suspected) exposure to COVID-19; F17.210 Nicotine dependence, cigarettes, uncomplicated; Q79.8 Other congenital malformations of musculoskeletal system; Z79.899 Other long term (current) drug therapy; Z79.01 Long term (current) use of anticoagulants
CPT/HCPCS: 36415; 71046; 80053; 85025; 87637; 93005; 99284

== ENCOUNTER 2024-07-18 13:39 | Outpatient (CLI) | payer MEDICARE, MEDICAID, SELFPAY ==
--- NOTE | 2024-07-18 13:50 | ECHO_ITS ---
Patient Info Name: Shaggy Daniel Age: 34 years : 1990 Gender: Male Ht: 65 in Wt: 118 lbs BSA: 1.56 m2 HR: 61 bpm BP: 155 / 98 mmHg Heart Rhythm: Sinus Rhythm Technical Quality: Good Exam Date: 07/18/2024 1:51 PM Exam Location: Echo Lab Patient Status: Outpatient Admit Date: 07/18/2024 Staff Ordering Physician: Merlin Quezada MD Medical Record Specialist: Breonna Correia RDCS Attending Provider: Merlin Quezada MD Referring Physician: Damien ERNANDEZ; Exam Type: CA echo doppler w bubble study Study Info Indications Z87.74 - Personal history of (corrected) congenital malformations of heart and circulatory system Complete two-dimensional, color flow and Doppler transthoracic echocardiogram is performed with agitated saline. Contrast/Agitated Saline Contrast/Ag. Saline: Agitated Saline Amount: 20.00 ml Existing IV Access: No New IV Access: Right Site Condition: IV removed Summary 1. Left ventricular chamber dimension is decreased. 2. Left ventricular systolic function is normal, estimated at 60-65%. 3. The left ventricular diastolic function is abnormal. 4. E/e' 27 is significantly elevated. 5. Left atrial chamber dimension is severely enlarged. 6. Right atrial chamber dimension is mildly enlarged. 7. There is trace aortic valve regurgitation. 8. There is mild mitral valve regurgitation. 9. There is moderate tricuspid valve regurgitation. 10. Moderate pulmonary hypertension, estimated pulmonary arterial systolic pressure is 56 mmHg. 11. There is mild pulmonic regurgitation. 12. Dilated inferior vena cava with >50% collapse upon inspiration consistent with elevated right atrial pressure, 10 mmHg. Left Ventricle E/e' 27 is significantly elevated. Left ventricular chamber dimension is decreased. Left ventricular systolic function is normal, estimated at 60-65%. The left ventricular diastolic function is abnormal. Right Ventricle Right ventricular systolic function is normal and with normal TAPSE 2.0 cm. Right ventricular chamber dimension is normal. Left Atria Left atrial chamber dimension is severely enlarged. Right Atria Right atrial chamber dimension is mildly enlarged. Atrial Septum Agitated saline injection with and without valsalva maneuver opacified right side cardiac chambers without shunt to left side cardiac chambers. Intact interatrial septum visualized by 2D and agitated saline imaging. Aortic Valve The aortic valve is trileaflet. There is no aortic valve stenosis. There is trace aortic valve regurgitation. Pulmonic Valve There is mild pulmonic regurgitation. Mitral Valve There is no mitral valve stenosis. There is mild mitral valve regurgitation. Tricuspid Valve There is moderate tricuspid valve regurgitation. Moderate pulmonary hypertension, estimated pulmonary arterial systolic pressure is 56 mmHg. Other Findings Large liver cyst noted. Pericardium/Pleural There is no pericardial effusion. Inferior Vena Cava Dilated inferior vena cava with >50% collapse upon inspiration consistent with elevated right atrial pressure, 10 mmHg. Aorta The aortic root size at the sinus of Valsalva is normal. Left Ventricular Outflow Tract Name Value Normal LVOT 2D LVOT Diameter 1.9 cm LVOT Doppler LVOT Peak Gradient 12 mmHg LVOT Mean Gradient 6 mmHg LVOT VTI 31 cm LVOT VTI/AV VTI Ratio 0.7 LVOT Stroke Volume 88 ml LVOT CO 5.1 l/min LVOT CI 3.3 l/min/m2 Pulmonic Valve Name Value Normal RVOT Doppler RVOT Peak Gradient 2 mmHg PV Doppler PV Peak Gradient 10 mmHg Mitral Valve Name Value Normal MV Doppler MV Peak Gradient 10 mmHg MV Mean Gradient 2 mmHg MV Decel Stoddard 935 cm/s2 MV PHT 49 ms MV Area (PHT) 4.4 cm2 4.0-5.0 MV Area (Cont Eq VTI) 2.0 cm2 MV Diastolic Function MV E Peak Velocity 159 cm/s MV A Peak Velocity 55 cm/s MV E/A 2.9 MV Decel Time 170 ms MV Annular TDI MV E/e' (Septal) 31.9 <=8.0 MV E/e' (Lateral) 24.1 <=8.0 MV E/e' (Average) 28.0 Tricuspid Valve Name Value Normal TV Regurgitation Doppler TR Peak Velocity 337 cm/s TR Peak Gradient 46 mmHg Estimated PAP/RSVP RA Pressure 10 mmHg <=5 PA Systolic Pressure 56 mmHg <36 RV Systolic Pressure 56 mmHg <36 Aorta Name Value Normal Ascending Aorta Ao Root Diameter (MM) 3.3 cm Ao Root Diam Index (MM) 2.1 cm/m2 Aortic Valve Name Value Normal AV Doppler AV Peak Velocity 244 cm/s AV Peak Gradient 24 mmHg AV Mean Gradient 13 mmHg AV VTI 48 cm AV Area (Cont Eq VTI) 1.8 cm2 >=3.0 AV Area (Cont Eq Dav) 2.0 cm2 AV Regurgitation 2D LVOT Area 2.8 cm2 Ventricles Name Value Normal LV Dimensions 2D/MM IVS Diastolic Thickness (2D) 1.5 cm 0.6-1.0 LVID Diastole (2D) 5.3 cm 4.2-5.8 LVIW Diastolic Thickness (2D) 1.2 cm 0.6-1.0 LVID Systole (2D) 2.7 cm 2.5-4.0 LVOT Diameter 1.9 cm LV Mass (2D Cubed) 306.48 g 88.00-224.00 LV Mass Index (2D Cubed) 196 g/m2 49-115 Relative Wall Thickness (2D) 0.46 LV Fractional Shortening/Ejection Fraction 2D/MM LV Fractional Shortening (2D) 49 % 25-43 LV EF (2D Teicholz) 80 % 52-72 LV Diastolic Volume (4C MOD) 112 ml LV EF (4C MOD) 75 % LV Diastolic Volume (2C MOD) 186 ml LV EF (2C MOD) 68 % LV Diastolic Volume (BP MOD) 150 ml 62-150 LV Diastolic Volume Index (BP MOD) 96 ml/m2 34-74 LV Systolic Volume (BP MOD) 42 ml 21-61 LV Systolic Volume Index (BP MOD) 27 ml/m2 11-31 LV EF (BP MOD) 72 % 52-72 LV Diastolic Length (4C) 8.8 cm LV Systolic Length (4C) 6.8 cm LV Stroke Volume (4C MOD) 84 ml Atria Name Value Normal LA Dimensions LA Dimension (MM) 5.3 cm 3.0-4.1 LA Volume (4C A-L) 101 ml LA Volume (BP A-L) 110 ml RA Dimensions RA Area (4C) 19.6 cm2 <=18.0 Report Signatures
--- OUTSIDE RECORDS SUMMARY | 2024-07-18 14:58 | XMS_ITS | Encounter Summary ---
Author Organization [facility] Address [address] [place] [address] Care Team Providers Care Medical Assistant Cardiology Name Role Phone Bernadette Robertson MD Primary Care Provider [phone] Encounter Details Date Type Department Care Team (Late st Contact Info) Description 05/31/2021 Telephone [facility] [address] [place] [address] Cr Titus MD [address] [place] [phone] Social History Tobacco Use Types Packs/Day Years [...] COVID-19? No / Unsure 05/01/2021 8:23 AM BYPRODUCT ENGINEER documented as of this encounter Functional Status [...] on filedocumented in this encounter Care Teams Medical Assistant Cardiology Relationship Specialty Start Date End Date Bernadette Robertson MD [address] [place] [address] PCP - General 11/07/21 documented as of this encounter
--- OUTSIDE RECORDS SUMMARY | 2024-07-18 14:58 | XMS_ITS | Encounter Summary ---
Author Organization [facility] Address [address] [place] [address] Care Team Providers Care Ticket Marker Name Role Phone Bernadette Robertson MD Primary Care Provider [phone] Encounter Details Date Type Department Care Team (Late st Contact Info) Description 08/09/2021 Telephone [facility] [address] [place] [address] Cr Titus MD [address] [phone] Social History Tobacco Use Types Packs/Day Years [...] on filedocumented in this encounter Care Teams Ticket Marker Relationship Specialty Start Date End Date Bernadette Robertson MD [address] [place] [address] PCP - General 11/07/21 documented as of this encounter
--- OUTSIDE RECORDS SUMMARY | 2024-07-18 14:58 | XMS_ITS | Encounter Summary ---
Author Organization [facility] Address [address] [place] [address] Care Team Providers Care Dry Mill Worker Name Role Phone Bernadette Robertson MD Primary Care Provider [phone] Encounter Details Date Type Department Care Team (Late st Contact Info) Description 08/12/2021 Telephone [facility] [address] [place] [address] Cr Titus MD [address] [phone] Social History Tobacco Use Types Packs/Day Years [...] on filedocumented in this encounter Care Teams Dry Mill Worker Relationship Specialty Start Date End Date Bernadette Robertson MD [address] [place] [address] PCP - General 11/07/21 documented as of this encounter
--- OUTSIDE RECORDS SUMMARY | 2024-07-18 14:58 | XMS_ITS ---
Author Organization [facility] [employer] Address [address] [place] [address] Care Team Providers Care Can Piler Name Role Phone Galen Hunter MD Primary Care Provider Unavail Tash Saucedo Unavailable [phone] Allergies No Known Allergies REASON FOR VISIT f/u medications Medications Medication SIG (Take, Route, Frequency, Duration) Notes Start Date End Date Status traZODone HCl 50 MG 1 tablet at bedtime Oral at bedtime for 90 days Active LOKELMA 10 GRAM ORAL POWDER PACKET *Reorder from [employer] for eRx and Interaction Alerts* 07/10/2023 Active Mirtazapine 45 MG 1 tablet at bedtime Oral Once a day for 90 days Active Lisinopril 40 MG Oral 07/10/2023 No t-Taking Sertraline HCl 100 MG 1 tablet Oral Once a day for 90 days Active Minoxidil 2.5 mg Oral 07/10/2023 Ac tive Carvedilol 25 MG Oral 07/10/2023 Ac tive Velphoro 500 mg Oral 07/10/2023 Act jammie Social History Sex Assigned At : Social History Observation Description Sex Assigned At Male Vital Signs Respiratory Rate 16 /min 07/11/2024 Height 64.00 in 07/11/2024 Weight 117 lbs 07/11/2024 BMI 20.08 kg/m2 07/11/2024 Height-cm 162.56 cm 07/11/2024 Weight-kg 53.07 kg 07/11/2024 Encounters Encounter Location Date Provider Diagnosis [facility] [employer] [address] [place] [address] 07/11/2024 Tash Saucedo Generalized anxiety disorder F41.1 ; Major depressive disorder, recurrent, mild F33.0 ; Primary insomnia F51.01 ; Cannabis dependence, uncomplicated F12.20 ; Other manager intermediate (current) drug therapy Z79.899 and Elevated blood pressure reading R03.0 Assessments Encounter Date Diagnosis (ICD Code) Assessment Notes Treatment Notes Treatment Clinical Notes Section Notes 07/11/2024 Generalized anxiety disorder (ICD-10 - F41.1) Generalized Anxiety Disorder: Care Instructions material was published, Learning About Anxiety Disorders material was published 1. depression - Remeron 45 mg at night [...] prescribes Xanax 3. Primary insomnia - Melatonin 3-5 mg OTC- PRN educated on Melatonin- educated to take Melatonin Trazodone 50 mg at bedtime - educated on rx 07/11/2024 Major depressive disorder, recurrent, mild (ICD-10 - F33.0) Learning About Depression Screening material was published, Preventing Depression From Coming Back: Care Instructions material was published, Learning About Depression material was published, Seasonal Affective Disorder: Care Instructions material was published, Depression Treatment: Care Instructions material was published 1. depression - Remeron 45 mg at night [...] prescribes Xanax 3. Primary insomnia - Melatonin 3-5 mg OTC- PRN educated on Melatonin- educated to take Melatonin Trazodone 50 mg at bedtime - educated on rx 07/11/2024 Primary insomnia (ICD-10 - F51.01) Insomnia: Care Instructions material was published, Learning About Sleeping Well material was published 1. depression - Remeron 45 mg at night [...] prescribes Xanax 3. Primary insomnia - Melatonin 3-5 mg OTC- PRN educated on Melatonin- educated to take Melatonin Trazodone 50 mg at bedtime - educated on rx 07/11/2024 Cannabis dependence, uncomplicated (ICD-10 - F12.20) Learning About Cannabis Use Disorder material was published, Learning About Substance Use Disorder material was published, Substance Use Disorder: Care Instructions material was published, Marijuana Use: Care Instructions material was published, Codependency: Care Instructions material was published 1. depression - Remeron 45 mg at night [...] prescribes Xanax 3. Primary insomnia - Melatonin 3-5 mg OTC- PRN educated on Melatonin- educated to take Melatonin Trazodone 50 mg at bedtime - educated on rx 07/11/2024 Other manager intermediate (current) drug therapy (ICD-10 - Z79.899) Medication Refill: Care Instructions material was published 1. depression - Remeron 45 mg at night [...] prescribes Xanax 3. Primary insomnia - Melatonin 3-5 mg OTC- PRN educated on Melatonin- educated to take Melatonin Trazodone 50 mg at bedtime - educated on rx 07/11/2024 Elevated blood pressure reading (ICD-10 - R03.0) 1. depression - Remeron 45 mg at night [...] prescribes Xanax 3. Primary insomnia - Melatonin 3-5 mg OTC- PRN educated on Melatonin- educated to take Melatonin Trazodone 50 mg at bedtime - educated on rx Plan Of Treatment Medication Medication Name Sig Start Date Stop Date Notes traZODone HCl 50 MG 1 tablet at bedtime Oral at bedtime for 90 days Mirtazapine 45 MG 1 tablet at bedtime Oral Once a day for 90 days Sertraline HCl 100 MG 1 tablet Oral [...] Codependency: Care Instructions material was published Other nursing home (current) drug therapy M edication Refill: Care Instructions material was published Next Appt Details Follow Up: 4 Months, Reason: medication follow up Provider Name:Tash Saucedo , 11/04/2024 03:45:00 PM, [address] [facility] [address], [place], [address], Progress Notes * OLINDA KIM:1990 (34 yo M)Acc No.[id number]:07/11/2024 Patient: CHANTEL BEE Provider: SUHAS REYESHNP :1990 A ge:34 Y S ex:Male Date:07/11/2024 Address:[address] [place] [address] Pcp:Galen Hunter MD Subjective: * Chief Complaints: * 1 . F/u medications. * HPI: H istory of Presenting Problem: :Follow up depression, anxiety, sleep chronic recurrent since last visit, report [facility] on transplant list and working to get back on it and talk to coordinator recently, I have not heard from anyone to get into therapy, d epression and anxiety been some depressed with last few weeks difficult to be productive and get moving and sleep struggle still, lately I go to bed and I fall asleep fine then wake up 3-4 hours later then back to sleep and wake up 3-4 hours later and sometimes I get up stretch and move around then back to sleep, no dreams, appetite pretty good weight stable, I feel restless and fidgety and pick at self at dry skin, and no SI/HI, no plans or intent no passive thoughts, medications all doing good and combinations no s/e, I feel sad situational and getting older and dwift apart from others and friends miss having them and not in a relationship and miss it, even miss close relationship and disconnected, motivation could use more and things I like to be doing a nd interest good, and energy not good, tired a lot, I still urinate little better lately, B/P been up and down and was in ER last Thursday with high B/P on rx. concentration and focus good when kidney failure happen I fought not to and be healthy, more grateful and second change being alive. plan to get on transplant list at [facility] need therapy 6 months I have a referral for kidney transplant list [facility] and need to be in therapy no [...] Center Stone-stopped ASRS =36 Psychosis Reported by german sahu.Notes: hx auditory [...] atient reports d ifficulty hearing. He reports no shortness of breath when walking (steps) b ut reports no chest pain, occasional palpitations, and no known heart murmur; p ort left arm- dialysis. He reports no GERD no abdominal pain, reproted nausea, no vomiting, no constipation, normal appetite, and no diarrhea; d ialysis. He reports d ifficulty urinating; d ialysis produce minimal urine report small amount- kidney failure, may urinate 1x day. H e reports no muscle aches, no muscle weakness, no arthralgias/joint pain, reported back pain, no swelling in the extremities, no neck pain, and no difficulty walking; hx cyst behind rt knee? S kin:: t attoo rt forearm . [...] no significant weight loss. He reports no cough. * Medical History: P benny: Cannabis dependence, Generalized anxiety disorder, Long-term drug therapy, Mild recurrent major depression, Primary insomnia, Severe recurrent major depression, Weight loss, ,. * Medications: T aking LOKELMA 10 GRAM ORAL POWDER PACKET , Notes to Pharmacist: *Reorder from [employer] for eRx and Interaction Alerts*, Taking Carvedilol 25 MG Tablet Oral , Taking Velphoro 500 mg Tablet Chewable Oral , Taking Minoxidil 2.5 mg Tablet Oral , Taking Sertraline HCl 100 MG Tablet 1 tablet Oral Once a day , Taking Mirtazapine 45 MG Tablet 1 tablet at bedtime Oral Once a day , Taking traZODone HCl 50 MG Tablet 1 tablet at bedtime Oral at bedtime , Not-Taking Lisinopril 40 MG Tablet Oral , Discontinued Ondansetron HCl 4 MG Tablet Oral , Discontinued Auryxia 210 mg iron Tablet Oral , Notes to Pharmacist: *[facility]*, Discontinued amLODIPine Besylate 10 MG Tablet Oral , Discontinued Famotidine 20 MG Tablet Oral , Discontinued Lactulose 10 GM/15ML Solution Oral , Discontinued Sevelamer Carbonate 2.4 gram Packet Oral , Notes to Pharmacist: *Pick strength- form from [employer] for eRX*, Discontinued Lisinopril 20 MG Tablet Oral , Discontinued Mirtazapine 45 MG Tablet TAKE 1 TABLET BY MOUTH AT BEDTIME FOR 90 DAYS , Discontinued traZODone HCl 50 MG Tablet 1 tablet at bedtime Oral at bedtime , Medication List reviewed and reconciled with the patient * Allergies: N .K.D.A. Objective: * Vitals: R R:16/min, Wt:117lbs, Wt-k.07 kg, Ht: 64.00 in, Ht-cm: 162.56 cm, BMI:20.08Index, Body Surface Area: 1.55. * Examination: P sychiatry: Appearance: w ell-groomed, well-nourished, appears stated age, slender build. Abnormal body movements: n one. Affect / mood: a ppropriate, full range. Aggression: l ow. Anger control: g ood. Attention: g ood. Attitude: c ooperative. Gait s teady. Homicidal ideation: n one. Suicidal ideation: n [...] uncomplicated - F12.20 5 . O ther nursing home (current) drug therapy - Z79.899 6 . E levated blood pressure reading - R03.0 ? 1. depression - Remeron 45 mg at night [...] prescribes Xanax 3. Primary insomnia - Melatonin 3-5 mg OTC- PRN educated on Melatonin- educated to take Melatonin Trazodone 50 mg at bedtime - [...] Instructions material was published 5. O ther nursing home (current) drug therapy Notes: Medication Refill: Care Instructions material was published * Procedure Codes: G 2211 VISIT COMPLEXITY INHERENT TO ONGOING CARE RELATED TO A PATIENT'S SINGLE, SERIOUS CONDITION OR A COMPLEX CONDITION * Follow Up: 4 Months (Reason: medication follow up) * Billing Information: * Visit Code: 41181 OFFICE OUTPATIENT VISIT 25 MINUTES DETAILED HISTORY AND EXAM/MODERATE MEDICAL DECISION MAKING. * Procedure Codes: G2211 VISIT COMPLEXITY INHERENT TO ONGOING CARE RELATED TO A PATIENT'S SINGLE, SERIOUS CONDITION OR A COMPLEX CONDITION. * Sign off status: Completed true * Provider: MATTHEW REYES Date: 07/11/2024 Generated for Kevin rushing/Corina/Rajni on: 07/18/2024 02:58 PM CDT History and Physical Notes * HPI (History of Present Illness) Category Sub-Category Detail Notes Category Not es History of Presenting Problem :Follow up depression, anxiety, sleep chronic recurrent since last visit, report [facility] marcus on transplant list and working to get back on it and talk to coordinator recently, I have not heard from anyone to get into therapy, depression and anxiety been some depressed with last few weeks difficult to be productive and get moving and sleep struggle still, lately I go to bed and I fall asleep fine then wake up 3-4 hours later then back to sleep and wake up 3-4 hours later and sometimes I get up stretch and move around then back to sleep, no dreams, appetite pretty good weight stable, I feel restless and fidgety and pick at self at dry skin, and no SI/HI, no plans or intent no passive thoughts, medications all doing good and combinations no s/e, I feel sad situational and getting older and dwift apart from others and friends miss having them and not in a relationship and miss it, even miss close relationship and disconnected, motivation could use more and things I like to be doing and interest good, and energy not good, tired a lot, I still urinate little better lately, B/P been up and down and was in ER last Thursday with high B/P on rx. concentration and focus good when kidney failure happen I fought not to and be healthy, more grateful and second change being alive. plan to get on transplant list at [facility] need therapy 6 months I have a referral for kidney transplant list [facility] and need to be in therapy no [...] no Comprehension - Intellectual function: a verage Gait steady
--- OUTSIDE RECORDS SUMMARY | 2024-07-18 14:58 | XMS_ITS ---
Author Organization [facility] Address [address] [place] [address] Care Team Providers Care Bellhop Captain Name Role Phone Galen Hunter MD Primary Care Provider Unavail Tash Saucedo Unavailable [phone] Medications Medication SIG (Take, Route, Frequency, Duration) Notes Start Date End Date Status Famotidine 20 MG Oral 07/10/2023 Ac tive Lactulose 10 GM/15ML Oral 07/10/2023 Active Carvedilol 25 MG Oral 07/10/2023 Ac tive Sevelamer Carbonate 2.4 gram Oral *Pick strength-form from [employer] for eRX* 07/10/2023 Active Velphoro 500 mg Oral 07/10/2023 Act jammie Ondansetron HCl 4 MG Oral 07/10/2023 Active LOKELMA 10 GRAM ORAL POWDER PACKET *Reorder from [employer] for eRx and Interaction Alerts* 07/10/2023 Active Auryxia 210 mg iron Oral *Pick strength-form from [employer] for eRX* 07/10/2023 Active amLODIPine Besylate 10 [...] Male Encounters Encounter Location Date Provider Diagnosis [facility] [address] [place] [address] 02/15/2024 Tash Sheryl Plan Of Treatment Next Appt Details Provider Name:Tash Saucedo , 11/04/2024 03:45:00 PM, [address], [place], [address], Progress Notes * GOLDEN KIMOB:1990 (33 yo M)Acc No.[id number]:02/15/2024 Patient: CHANTEL BEE Provider: MATTHEW REYES :1990 A ge:33 Y S ex:Male Date:02/15/2024 Address:[address] [place] [address] Subjective: * Chief Complaints: * * Medical History: * Medications: T aking Ondansetron HCl 4 MG Tablet Oral , Taking LOKELMA 10 GRAM ORAL POWDER PACKET , Notes to Pharmacist: *Reorder from [facility] for eRx and Interaction Alerts*, Taking Auryxia 210 mg iron Tablet Oral , Notes to Pharmacist: *[facility]*, Taking amLODIPine Besylate 10 MG Tablet Oral , Taking Famotidine 20 MG Tablet Oral , Taking Lactulose 10 GM/15ML Solution Oral , Taking Carvedilol 25 MG Tablet Oral , Taking Sevelamer Carbonate 2.4 gram Packet Oral , Notes to Pharmacist: *[facility]*, Taking Velphoro 500 mg Tablet [...] MATTHEW REYES Date: 1 Generated for Kevin Montes De Oca on: 0 07/18/2024 02:58 PM CDT
--- OUTSIDE RECORDS SUMMARY | 2024-07-18 14:58 | XMS_ITS | Encounter Summary ---
Author Organization [facility] Address [address] [place] [address] Care Team Providers Care Oracle Manufacturing Consultant Name Role Phone Bernadette Robertson MD Primary Care Provider [phone] Bernadette Robertson MD Primary Care Provider [phone] Encounter Details Date Type Department Care Team (Late st Contact Info) Description 02/28/2021 Telephone [facility] [address] [place] [address] Cr Titus MD [address] [phone] Social History Tobacco Use Types Packs/Day Years [...] on filedocumented in this encounter Care Teams Oracle Manufacturing Consultant Relationship Specialty Start Date End Date Bernadette Robertson MD [address] [place] [address] PCP - General 07/02/20 03/04/21 Bernadette Robertson MD [address] [place] [address] PCP - General 11/07/21 documented as of this encounter
--- OUTSIDE RECORDS SUMMARY | 2024-07-18 14:58 | XMS_ITS ---
Author Organization [facility] [email or web address] Address [address] [place] [address] Care Team Providers Care Bender Helper Name Role Phone Galen Hunter MD Primary Care Provider Unavail Tash Saucedo Unavailable [phone] Allergies No Known Allergies Medications Medication SIG [...] Carbonate 2.4 gram Oral *Pick strength-form from [facility]DO for eRX* 07/10/2023 Active Mirtazapine 45 MG TAKE 1 TABLET BY MOUTH AT BEDTIME FOR 90 DAYS for 90 Active Lactulose 10 GM/15ML Oral 07/10/2023 Active Famotidine 20 MG Oral 07/10/2023 Ac tive Carvedilol 25 MG Oral 07/10/2023 Ac tive amLODIPine Besylate 10 MG Oral 07/10/2023 Active Auryxia 210 mg iron Oral *Pick strength-form from [facility] for eRX* 07/10/2023 Active LOKELMA 10 GRAM ORAL POWDER PACKET *Reorder from [facility] for eRx and Interaction Alerts* 07/10/2023 Active [...] Problem Status W/U Status Risk Notes Problem [id number] Elevated blood pressure reading (R03.0) Active confirmed Vital Signs Blood pressure systolic 152 mm Hg 04/19/20 24 Blood pressure diastolic 84 mm Hg 024 Heart Rate 62 /min 04/19/2024 Height 64.00 in 04/19/2024 Weight 118.2 lbs 04/19/2024 BMI 20.29 kg/m2 04/19/2024 Height-cm 162.56 cm 04/19/2024 Weight-kg 53.61 kg 04/19/2024 Encounters Encounter Location Date Provider Diagnosis [facility] [address] [facility] [address] [place] [address] 04/19/2024 Tash Saucedo Generalized anxiety disorder F41.1 ; Major depressive disorder, recurrent, mild F33.0 ; Primary insomnia F51.01 ; Cannabis dependence, uncomplicated F12.20 ; Other senior care (current) drug therapy Z79.899 and Elevated blood [...] bedtime - educated on rx 04/19/2024 Other senior care (current) drug therapy (ICD-10 - Z79.899) Medication [...] Codependency: Care Instructions material was published Other senior care (current) drug therapy M edication Refill: Care Instructions material was published Next Appt Details Follow Up: 3 Months, Reason: f/u rx Provider Name:Tash Fergusonshayne , 11/04/2024 03:45:00 PM, [address], [facility] [address], [place], [address], Progress Notes * GOLDEN KIMOB:1990 (33 yo M)Acc No.[id number]:04/19/2024 Patient: CHANTEL BEE Provider: MATTHEW REYES :1990 A ge:33 Y S ex:Male Date:04/19/2024 Address:[address] [place] [address] Pcp:Galen Hunter MD Subjective: * Chief Complaints: [...] tool used for adult depression screening: [facility] ([facility]? H istory of Presenting Problem: :Follow up depression, anxiety, sleep chronic recurrent since last visit, report alright, I need psychiatric care for 6 months to be on transplant list and be re-evualated for kidney at [facility] and I failed a heart test once [...] plan to get on transplant list at [facility] I have a referral for kidney transplant list [facility] and need to be in [...] es, D o you have Power of Epic Willow Analyst for Health or Medical? Y es, D o you have a power of locomotive crane operator helper for health? Y es, D o you have power of locomotive crane operator helper for Medical ? Y es, I f yes, then please bring the POA paperwork so that we can upload it. Y es. * Medications: T aking Ondansetron HCl 4 MG Tablet Oral , Taking LOKELMA 10 GRAM ORAL POWDER PACKET , Notes to Pharmacist: *Reorder from [facility]DO for eRx and Interaction Alerts*, Taking Auryxia 210 mg iron Tablet Oral , Notes to Pharmacist: *Pick strength-form from [facility]DO for eRX*, Taking amLODIPine Besylate 10 MG Tablet Oral , Taking Famotidine 20 MG Tablet Oral , Taking Lactulose 10 GM/15ML Solution Oral , Taking Carvedilol 25 MG Tablet Oral , Taking Sevelamer Carbonate 2.4 gram Packet Oral , Notes to Pharmacist: *Pick strength-form from [facility] for eRX*, Taking Velphoro 500 mg [...] uncomplicated - F12.20 5 . O ther senior care (current) drug therapy - Z79.899 6 . [...] Instructions material was published 5. O ther senior care (current) drug therapy Notes: Medication Refill: Care [...] rx) * Billing Information: * Visit Code: 88162 OFFICE OUTPATIENT VISIT 25 MINUTES DETAILED HISTORY AND EXAM/MODERATE MEDICAL DECISION MAKING. * Procedure Codes: 40738 BEHAV ASSMT W/SCORE & DOCD/STAND INSTRUMENT. G2211 VISIT COMPLEXITY INHERENT TO ONGOING CARE RELATED TO A PATIENT'S SINGLE, SERIOUS CONDITION OR A COMPLEX CONDITION. * R EQUIPMENT REPAIRER Sign off status: Completed true * Provider: MATTHEW REYES Date: 1 Generated for Kevin rushing/Corina/Rajni on: 0 07/18/2024 02:58 PM CDT History and Physical Notes * HPI (History of Present Illness) Category Sub-Category Detail Notes Category Not es History of Presenting Problem :Follow up depression, anxiety, sleep chronic recurrent since last visit, report alright, I need psychiatric care for 6 months to be on transplant list and be re-evualated for kidney at [facility] and I failed a heart test once [...] plan to get on transplant list at [facility] I have a referral for kidney transplant list [facility] and need to be in therapy [...] Screening Findings: P ositve Follow-Up for Depression: [facility] treatment assessment, Patient follow-up to return when [...]
--- OUTSIDE RECORDS SUMMARY | 2024-07-18 14:59 | XMS_ITS | Clinical Summary ---
Author Organization [facility] Address [address] [place] [address] Care Team Providers Care Telex Operator Name Role Phone None, Provider MD Primary [...] complete this topic Insurance MEDICAID Care Teams Telex Operator Relationship Specialty Start Date End Date None, ProviderMD PCP - General 01/11/21
--- OUTSIDE RECORDS SUMMARY | 2024-07-18 14:59 | XMS_ITS | Encounter Summary ---
Author Organization [facility] Address [address] [place] [address] Care Team Providers Care Sharples Machine Operator Name Role Phone Bernadette Robertson MD Primary Care Provider [phone] Bernadette Robertson MD Primary Care Provider [phone] Encounter Details Date Type Department Care Team (Late st Contact Info) Description 02/28/2021 Telephone [facility] [address] [place] [address] Cr Titus MD [address] [phone] Social History Tobacco Use Types Packs/Day Years [...] on filedocumented in this encounter Care Teams Sharples Machine Operator Relationship Specialty Start Date End Date Bernadette Robertson MD [address] [facility] [place] [address] PCP - General 07/02/20 03/04/21 Bernadette Robertson MD [address] [facility] [place] [address] PCP - General 11/07/21 documented as of this encounter
--- OUTSIDE RECORDS SUMMARY | 2024-07-18 14:59 | XMS_ITS | Encounter Summary ---
Author Organization [facility] Address [address] [facility] [place] [address] Care Team Providers Care Hospice Coordinator Name Role Phone Bernadette Robertson MD Primary Care Provider [phone] Encounter Details Date Type Department Care Team (Late st Contact Info) Description 08/14/2021 Telephone [facility] [address] [place] [address] Cr Titus MD [address] [phone] Social History Tobacco Use Types Packs/Day Years [...] on filedocumented in this encounter Care Teams Hospice Coordinator Relationship Specialty Start Date End Date Bernadette Robertson MD [address] [place] [address] PCP - General 11/07/21 documented as of this encounter
--- OUTSIDE RECORDS SUMMARY | 2024-07-18 14:59 | XMS_ITS | Encounter Summary ---
Author Organization [facility] Address [address] [place] [address] Care Team Providers Care Assistant Infant Toddler Teacher Name Role Phone Bernadette Robertson MD Primary Care Provider [phone] Bernadette Robertson MD Primary Care Provider [phone] Encounter Details Date Type Department Care Team (Late st Contact Info) Description 03/04/2021 Telephone [facility] [address] [place] [address] Cr Titus MD [address] [phone] Social History Tobacco Use Types Packs/Day Years [...] on filedocumented in this encounter Care Teams Assistant Infant Toddler Teacher Relationship Specialty Start Date End Date Bernadette Robertson MD [address] [facility] [place] [address] PCP - General 07/02/20 03/04/21 Bernadette Robertson MD [address] [place] [address] PCP - General 11/07/21 documented as of this encounter
--- OUTSIDE RECORDS SUMMARY | 2024-07-18 14:59 | XMS_ITS | Encounter Summary ---
Author Organization [facility] Address [address] [facility] [place] [address] Care Team Providers Care It Application Architect Name Role Phone Bernadette Robertson MD Primary Care Provider [phone] Encounter Details Date Type Department Care Team (Late st Contact Info) Description 03/07/2021 Telephone [facility] [address] [place] [address] Cr Titus MD [address] [place] [phone] Social History Tobacco Use Types Packs/Day Years [...] on filedocumented in this encounter Care Teams It Application Architect Relationship Specialty Start Date End Date Bernadette Robertson MD [address] [place] [address] PCP - General 11/07/21 documented as of this encounter
--- OUTSIDE RECORDS SUMMARY | 2024-07-18 14:59 | XMS_ITS | Encounter Summary ---
Author Organization [facility] Address [address] [place] [address] Care Team Providers Care Entry Level Lab Technician Name Role Phone Bernadette Robertson MD Primary Care Provider [phone] Bernadette Robertson MD Primary Care Provider [phone] Encounter Details Date Type Department Care Team (Late st Contact Info) Description 03/01/2021 Telephone [facility] [address] [place] [address] rC Titus MD [address] [phone] Social History Tobacco Use Types Packs/Day Years [...] on filedocumented in this encounter Care Teams Entry Level Lab Technician Relationship Specialty Start Date End Date Bernadette Robertson MD [address] [place] [address] PCP - General 07/02/20 03/04/21 Bernadette Robertson MD [address] [place] [address] PCP - General 11/07/21 documented as of this encounter
--- OUTSIDE RECORDS SUMMARY | 2024-07-18 14:59 | XMS_ITS | Encounter Summary ---
Author Organization [facility] Address [address] [place] [address] Care Team Providers Care Water Quality Technician Name Role Phone Bernadette Robertson MD Primary Care Provider [phone] Bernadette Robertson MD Primary Care Provider [phone] Encounter Details Date Type Department Care Team (Late st Contact Info) Description 03/04/2021 Telephone [facility] [address] [place] [address] Cr Titus MD [address] [phone] Social History Tobacco Use Types Packs/Day Years [...] on filedocumented in this encounter Care Teams Water Quality Technician Relationship Specialty Start Date End Date Bernadette Robertson MD [address] [facility] [place] [address] PCP - General 07/02/20 03/04/21 Bernadette Robertson MD [address] [facility] [place] [address] PCP - General 11/07/21 documented as of this encounter
--- OUTSIDE RECORDS SUMMARY | 2024-07-18 14:59 | XMS_ITS | Clinical Summary ---
Author Organization [facility] [employer] Address [address] [facility] [place] [address] Care Team Providers Care Hotbed Lever Operator Name Role Phone Bernadette Robertson MD Primary Care Provider [phone] Source Comments [facility],non-owned Affiliates and Associated Physician Practices is amultiple site organization consisting of ambulatory clinics and hospital sitesin [place], [place] and [place]. This disclosure is being madepursuant to the Care Everywhere program and may not contain all information available regarding this patient. Last updated 18.[facility] Allergies No known active allergies Medications * [...] 05/15/2021 Overview (05/15/2021): Chantel Kim 1990 Referring Medical Transcription Supervisor: Merlin Quezada Listing Date: Dialysis Info: Type: Time: 746 days ( 04/30/2019) Blood Type: O POS Body mass index is 18.42 kg/m . ALERTS Cold Roll Operator: Past Medical History: Diagnosis Date Chronic kidney disease Depression psychiatrist Dr. Tash Saucedo once a month 5-6 months. Difficulty swallowing difficult swallowing large pills. 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 Suicidal ideation Suicide attempt 2016 was not hospitalized. Past Surgical History: Procedure Laterality Date Heart Valve Surgery 1993 born with hole in heart, had open heart surgery at [facility]. No longer follows with a jeeper operator INSERTION DIALYSIS CATHETER N/A 03/12/2021 N/A; LAPAROSCOPIC PLACEMENT PERITONEAL DIALYSIS CATHETER AND LYSIS OF ADHESIONS IR PERITONEAL TUNNEL CATH PLACE 08/22/[address] 08/22/2020 Efra Ontiveros MD [facility] IVR IR PERITONEAL TUNNEL CATH PLACE 02/25/[address] CATH [address] 02/25/2021 Efra Ontiveros MD [facility] IVR REMOVAL FOREIGN BODY N/A 06/30/2020 N/A; PD Catheter Removal Renal Biopsy 2019 [facility] Renal [facility] Social History Socioeconomic History Marital [...] relationships, depression, and insecurities. Patient states to [facility] he has suicidal ideations. Patient is not under the care of a counselor, therapist, or psychiatrist. Patient states he is seeing a counselor, Dr. Tash Saucedo. Upon further research, she is a EXTRUSION DIE COORDINATOR who prescribes his medications. Patient states he went to [facility] in [place] but thinks they dropped them because he missed an appointment. Patient states he has MDD. Patient questioned the assessment questions. When REMOTE PILOT OPERATOR mentioned obtaining records from [facility], patient asked why it was necessary. Patient felt those records were personal. Coping style, skills, and adaptation to illness: Patient sleeps to cope with stress. Patient states he uses melatonin and edibles to help him sleep. Patient states some of his stressors are the future, the past, and transplant Clinical Social Work Impression: It is the impression of this social media marketing manager that Chantel Kim has several positive factors for Kidney transplant candidacy including sufficient insurance coverage, adequate support system, and appropriate discharge plan. - Patient states he has MDD. Attempted suicide twice in the last 10 years due to relationships, depression, and insecurities. Patient uses edibles to help him cope, and sleep. Patient states his stressors are the future, the past, and transplant. Plan: plate worker to provide supportive services as needed. Patient appears to be a reasonable candidate for transplant from a psychosocial perspective. Post transplant arrangement forms are needed prior to being listed. Psychiatric Consult Recommended: Yes related to:Substance Abuse, Unstable Mental Health, Coping Strategies and Comprehension Concerns. 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 [...] this topic Medical Devices Implanted Type Area Manager Part Device Identifier Shelf Expiration Date Model / Serial / Lot Kit Durathane Drflw Embosafe Chrnc Dlys Implanted:Qty: 1 on 06/29/2020 at [facility] Right: Chest Wall [employer] 08/17/2022 [id number] / / [id number] Kit Durathane Drflw Embosafe Chrnc Dlys Implanted:Qty: 1 on 01/17/2021 at [facility] Right: Chest [employer] 05/20/2023 [id number] / / [id number] Description: Peritoneal Dialysis Catheter Implanted:Qty: 1 on 03/12/2021 by Cr Titus MD at [facility] N/A: Abdomen 05/17/2024 [id number] / / [id number] Procedures Procedure Name Priority Date/Time Associated Diagnosis Comments HEPATITIS C ANTIBODY Routine 05/01/2021 9:21 AM FIRER HELPER Pre-transplant evaluation for kidney transplant HIV-1 HIV-2 ANTIBODY + HIV P24 AG PANEL Routine 05/01/2021 9:21 AM FIRER HELPER Pre-transplant evaluation for kidney transplant from Last 3 Months or Most Recently Relevant to Health Maintenance Results * HIV-1 HIV-2 ANTIBODY + HIV P24 AG PANEL (05/01/2021 9:21 AM FIRER HELPER) HIV Antigen/Antibod y 1 & 2 Non-reacti ve Non-react jammie 05/01/2021 11:08 AM FIRER HELPER [facility] Comment:No Laboratory eviden ce of HIV infection. Blood BLOOD SPECIMEN / Unknown Lab Venipuncture / Unknown 05/01/2021 9:21 AM FIRER HELPER 05/01/2021 9:48 AM FIRER HELPER Alexandra Ramachandran MD LAB - CHEMISTRY KRISTA CAREY Performing Organization Address City/[facility]/ZIP Co de Phone Number [address] [address], [facility] [phone] * HEPATITIS C ANTIBODY (05/01/2021 9:21 AM FIRER HELPER) Hepatitis C Antibody Non-react jammie Non-reac tive 05/01/2021 11:08 AM FIRER HELPER [facility] Comment:Hepatitis C Antibody screen indicates no serologic evidence of past or current infection with Hepatitis C Virus. Patients with unexplained liver disease who are immunocompromised or suspected of having acute Hepatitis C infection may benefit from Nucleic Acid Test (ELMO) for Hepatitis C Viral RNA to confirm Hepatitis C status. Blood BLOOD SPECIMEN / Unknown Lab Venipuncture / Unknown 05/01/2021 9:21 AM FIRER HELPER 05/01/2021 9:48 AM FIRER HELPER Alexandra Ramachandran MD LAB - CHEMISTRY KRISTA CAREY [address] [address], [facility] [phone] from Last 3 Months or Most Recently Relevant to Health Maintenance Advance Directives * Full Code (Latest Code Status on File) Date Activated Date Inactivated Comments 01/14/2021 12:11 AM 01/19/2021 2:47 PM * Full Code Date Activated Date Inactivated Comments 06/28/2020 3:21 PM 07/02/2020 2:26 PM Care Teams Hotbed Lever Operator Relationship Specialty Start Date End Date Bernadette Robertson MD [address] [facility] [place] [address] PCP - General 11/07/21
--- OUTSIDE RECORDS SUMMARY | 2024-07-18 14:59 | XMS_ITS | Encounter Summary ---
Author Organization [facility] Address [address] [facility] [place] [address] Care Team Providers Care Retail Loan Originator Assistant Name Role Phone Bernadette Robertson MD Primary Care Provider [phone] Encounter Details Date Type Department Care Team (Late st Contact Info) Description 03/05/2021 Telephone [facility] [address] [place] [address] Cr Titus MD [address] [place] [phone] Social History Tobacco Use Types Packs/Day Years [...] on filedocumented in this encounter Care Teams Retail Loan Originator Assistant Relationship Specialty Start Date End Date Bernadette Robertson MD [address] [place] [address] PCP - General 11/07/21 documented as of this encounter
--- OUTSIDE RECORDS SUMMARY | 2024-07-18 14:59 | XMS_ITS | Encounter Summary ---
Author Organization [facility] Address [address] [facility] [place] [address] Care Team Providers Care Reference Test Clerk Name Role Phone Bernadette Robertson MD Primary Care Provider [phone] Encounter Details Date Type Department Care Team (Late st Contact Info) Description 08/15/2021 Telephone [facility] [address] [place] [address] Cr Titus MD [address] [phone] Social History Tobacco Use Types Packs/Day Years [...] on filedocumented in this encounter Care Teams Reference Test Clerk Relationship Specialty Start Date End Date Bernadette Robertson MD [address] [place] [address] PCP - General 11/07/21 documented as of this encounter
== END 2024-07-18 13:40 | disposition home or self-care (01) ==
PROVIDERS: PCP Emergency Medicine; Visit Provider Internal Medicine Nephrology
DX: R01.1 Cardiac murmur, unspecified (principal); Z87.74 Personal history of (corrected) congenital malformations of heart and circulatory system; I34.0 Nonrheumatic mitral (valve) insufficiency; I27.20 Pulmonary hypertension, unspecified; I37.1 Nonrheumatic pulmonary valve insufficiency
CPT/HCPCS: 93306; 96375

== ENCOUNTER 2024-11-17 11:02 | Emergency (ER) | payer MEDICARE, MEDICAID, SELFPAY ==
--- NOTE | ~2024-11-17 | XR_ITS ---
XR chest 1V portable 11/18/2024 08:23 Indication: Tuberculosis Procedure: AP portable chest Comparison: 06/30/2024 Findings: Central venous catheter tip in the right atrium. Status post median sternotomy. Cardiomegal y. Extensive left-sided airspace consolidation. Small left effusion. Impression: 1: Left-sided airspace disease which may represent pneumonia and/or asymmetric edema. 2: Small left pleural effusion. 3: Cardiomegaly. Reviewed, dictated and finalized at location [] Impression: 1: Left-sided airspace disease which may represent pneumonia and/or asymmetric edema. 2: Small left pleural effusion. 3: Cardiomegaly.
--- NOTE | ~2024-11-17 | CT_ITS ---
CLINICAL INDICATION: 34-year-old gentleman with end-stage renal failure presents with an abnormal sneha st x-ray dated 11/11/2024 for which the report is provided. COMPARISON: Reference is made to a report from recent radiograph dated 11/11/2024 which described a d ense region of consolidation/atelectasis within the left upper lobe. TECHNIQUE: Multiple contiguous axial images of the chest was performed without the administration of intravenous contrast. This CT examination was performed utilizing dose reduction techniques. DLP: 130 mGy-cm FINDINGS/OBSERVATIONS: LUNG: A small left-sided pleural effusion is identified. Within the left lung base is a thick walled focus of dense attenuation (measuring 69 Hounsfield units ) with an internal cavity and an air-fluid level. This abnormality measures 4.8 x 4.5 x 10.1 cm (ante rior to posterior x medial to lateral x cranial to caudal dimension). Compression of the left inferior lobar bronchus (likely from mediastinal lymphadenopathy) leads to ad jacent compressive atelectasis of the left lower lobe with volume loss in the left hemithorax. Patchy groundglass opacification within the right hemithorax along with tree-in-bud opacification the right upper lobe. HEART: The heart is enlarged, with a moderate pleural effusion Right internal jugular tunneled central venous hemodialysis catheter with its tip in the right atrium . MEDIASTINUM: Limited evaluation without intravenous contrast and a lack of mediastinal fat. However, within the left axilla are multiple morphologically suspicious and pathologically enlarged l ymph nodes, likely also detected clinically. Mediastinal lymphadenopathy is also suspected. SOFT TISSUES OF THE CHEST: Unremarkable. BONES OF THE CHEST: No acute fracture. No lytic or blastic lesions are identified. Sternal wires are present. IMPRESSION: Cavitary mass within the left hemithorax with left axillary (and likely mediastinal and hilar) lympha denopathy compressing the left inferior lobar bronchus leading to adjacent compressive atelectasis. E tiology of the cavitary mass includes cancer (most frequently squamous cell carcinoma), bacterial (davalos ch as primary TB) or fungal infections, a pneumatocele (with a history of trauma) or vascular in etio logy, less likely. Reviewed, dictated and finalized at location A. IMPRESSION: Cavitary mass within the left hemithorax with left axillary (and likely mediast inal and hilar) lymphadenopathy compressing the left inferior lobar bronchus le ading to adjacent compressive atelectasis. Etiology of the cavitary mass includ es cancer (most frequently squamous cell carcinoma), bacterial (such as primary TB) or fungal infections, a pneumatocele (with a history of trauma) or vascula r in etiology, less likely.
[2024-11-17 11:08] VITALS: BP 139/85; PULSE 78; RESP 18; TEMP 36.3; O2SAT 100
--- OUTSIDE RECORDS SUMMARY | 2024-11-17 11:08 | XMS_ITS | Encounter Summary ---
Author Organization [facility] Address [address] [facility] [place] [address] Care Team Providers Care Vacuum Worker Name Role Phone Bernadette Robertson MD Primary Care Provider [phone] Galen Hunter MD Primary Care Provider [phone] Encounter Details Date Type Department Care Team (Late st Contact Info) Description 08/12/2021 Telephone [facility] [address] [place] [address] Cr Titus MD [address] [phone] Social History Tobacco Use Types Packs/Day Years [...] at Not on file Legal Sex Male 5:34 AM RN PALLIATIVE Gender Identity Not on file Sexual Orientation Not on file documented as of this encounter Functional Status * Is person deaf or have serious hearing difficulty? Answer Date of Assessment Author No 07/23/2021 2:04 PM CDCecil Winn RN * Is person blind or have serious difficulty seeing? Answer Date of Assessment Author No 07/23/2021 2:04 PM CDCecil Winn RN * Does person have serious difficulty walking/climbing stairs? Answer Date of Assessment Author No 07/23/2021 2:04 PM CDCecil Winn RN * Does person have difficulty dressing/bathing? Answer Date of Assessment Author No 07/23/2021 2:04 PM CDCecil Winn RN * Does person have difficulty doing errands alone? Answer Date of Assessment Author No 07/23/2021 2:04 PM Cecil Briones RN documented as of this encounter Mental Status * Does person have difficulty concentrating/remembering/making decisions? Answer Entry Date Author No 07/23/2021 2:04 PM Cecil Briones RN documented in this encounter Plan of Treatment Not on file documented as of this encounter Visit Diagnoses Not on filedocumented in this encounter Care Teams Vacuum Worker Relationship Specialty Start Date End Date Bernadette Robertson MD [address] [facility]/ [address] [place] [address] PCP - General 11/07/21 10/11/24 Galen Hunter MD [address] [facility] 2 [place] [address] PCP - General Internal Medicine 10/12/24 documented as of this encounter
--- OUTSIDE RECORDS SUMMARY | 2024-11-17 11:08 | XMS_ITS | Encounter Summary ---
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
--- OUTSIDE RECORDS SUMMARY | 2024-11-17 11:08 | XMS_ITS | Encounter Summary ---
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 No / Unsure 05/01/2021 8:23 AM EXPLOSIVES WORKER documented as of this encounter Functional Status * Is person deaf or have serious hearing difficulty? Answer Date of Assessment Author No 03/12/2021 1:46 PM EXPLOSIVES WORKER Augustus Barrios, RN * Is person blind or have serious difficulty seeing? Answer Date of Assessment Author No 03/12/2021 1:46 PM Augustus Herrmann RN * Does person have serious difficulty walking/climbing stairs? Answer Date of Assessment Author No 03/12/2021 1:46 PM Augustus Herrmann RN * Does person have difficulty dressing/bathing? Answer Date of Assessment Author No 03/12/2021 1:46 PM Augustus Herrmann RN * Does person have difficulty doing errands alone? Answer Date of Assessment Author No 03/12/2021 1:46 PM Augustus Herrmann RN documented as of this encounter Mental Status * Does person have difficulty concentrating/remembering/making decisions? Answer Entry Date Author No 03/12/2021 1:46 PM Augustus Herrmann RN documented in this encounter Plan of Treatment Not on file documented as of this encounter Visit Diagnoses Not on filedocumented in this encounter Care Teams Manager Supply Chain Relationship Specialty Start Date End Date Bernadette Robertson MD [facility] [address] [facility]/ [address] [place] [address] PCP - General 11/07/21 10/11/24 Galen Hunter MD [address] [place] [address] PCP - General Internal Medicine 10/12/24 documented as of this encounter
--- OUTSIDE RECORDS SUMMARY | 2024-11-17 11:09 | XMS_ITS | Encounter Summary ---
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 Answer Date of Assessment Author No 02/25/2021 12:35 PM Meaghan Harry RN * Is person blind or have serious difficulty seeing? Answer Date of Assessment Author No 02/25/2021 12:35 PM Meaghan Harry RN * Does person have serious difficulty walking/climbing stairs? Answer Date of Assessment Author No 02/25/2021 12:35 PM Meaghan Harry RN * Does person have difficulty dressing/bathing? Answer Date of Assessment Author No 02/25/2021 12:35 PM Meaghan Harry RN * Does person have difficulty doing errands alone? Answer Date of Assessment Author No 02/25/2021 12:35 PM Meaghan Harry RN documented as of this encounter Mental Status * Does person have difficulty concentrating/remembering/making decisions? Answer Entry Date Author No 02/25/2021 12:35 PM Meaghan Harry RN documented in this encounter Plan of Treatment Not on file documented as of this encounter Visit Diagnoses Not on filedocumented in this encounter Care Teams Catalogue Librarian Relationship Specialty Start Date End Date Bernadette Robertson MD [address] [place] [address] PCP - General 11/07/21 10/11/24 Galen Hunter MD [address] [place] [address] PCP - General Internal Medicine 10/12/24 documented as of this encounter"
--- OUTSIDE RECORDS SUMMARY | 2024-11-17 11:09 | XMS_ITS | Encounter Summary ---
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
--- OUTSIDE RECORDS SUMMARY | 2024-11-17 11:09 | XMS_ITS | Encounter Summary ---
Author Organization [facility] Address [address] [facility] [place] [address] Care Team Providers Care Solderer Assembler Name Role Phone Bernadette Robertson MD Primary Care Provider [phone] Bernadette Robertson MD Primary Care Provider [phone] Galen Hunter MD Primary Care Provider [phone] Encounter Details Date Type Department Care Team (Late st Contact [facility]) Description 03/04/2021 Telephone [facility] Surgery [address] [place] [address] Cr Titus MD [address] [phone] Social History Tobacco Use Types Packs/Day Years [...] on file 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
--- OUTSIDE RECORDS SUMMARY | 2024-11-17 11:09 | XMS_ITS | Encounter Summary ---
Author Organization [facility] Address [address] [facility] [place] [address] Care Team Providers Care Spray Gun Operator Name Role Phone Bernadette Robertson MD Primary Care Provider [phone] Bernadette Robertson MD Primary Care Provider [phone] Galen Hunter MD Primary Care Provider [phone] Encounter Details Date Type Department Care Team (Late st Contact [facility]) Description 02/28/2021 Telephone [facility] Surgery [address] [place] [address] Cr Titus MD [address] [phone] Social History Tobacco Use Types Packs/Day Years [...] on file 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
--- OUTSIDE RECORDS SUMMARY | 2024-11-17 11:09 | XMS_ITS | Encounter Summary ---
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
--- OUTSIDE RECORDS SUMMARY | 2024-11-17 11:09 | XMS_ITS | Encounter Summary ---
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
--- OUTSIDE RECORDS SUMMARY | 2024-11-17 11:09 | XMS_ITS | Patient Health Record ---
Author Organization [facility] Address [address] [place] [address] Care Team Providers Care Loss Prevention Operations Manager Name Role Phone Galen Hunter MD Primary Care Provider Unavail Tash Saucedo Unavailable [phone] Allergies No Known Allergies Reason For Referral No Information Medications Medication SIG (Take, Route, Frequency, Duration) Notes Start Date End Date Status Sertraline HCl 100 MG 1 tablet Oral Once a day; Duration: 90 days Active Lisinopril 40 MG Oral 07/10/2023 No t-Taking Velphoro 500 mg Oral 07/10/2023 Act jammie Minoxidil 2.5 mg Oral 07/10/2023 Ac tive LOKELMA 10 GRAM ORAL POWDER PACKET *Reorder from [employer] for eRx and Interaction Alerts* 07/10/2023 Active Carvedilol 25 MG Oral 07/10/2023 Ac tive Mirtazapine 45 MG 1 tablet at bedtime Oral Once a day; Duration: 90 days Active traZODone HCl 50 MG 1 tablet at bedtime Oral at bedtime; Duration: 90 days Active Immunizations Vaccine Route Administration Date Status Comme nts DTP Unknown 01/21/1994 Administered Influenza virus vaccine, quadrivalent (IIV4), split virus, 0.25 mL dosage Unknown 01/19/2020 Administered Elizabeth Covid-19 Vaccine Unknown 07/05/2020 Administere d OPV Unknown 01/21/1994 Administered Social History Tobacco Use: Social History Observation Description Date Details (start date - stop date) Former Smoker NA - NA Sex Assigned At : Social History Observation Description Sex Assigned At Male Tobacco Control (Standard) Question Answer Notes Tobacco use: Former smoker Problems Problem Type SNOMED Code ICD Code Onset Dates Problem Status W/U Status Risk Notes Problem Cannabis dependence (19022352) Cannabis dependence, uncomplicated (F12.20) 3 Active confirmed Problem Mild recurrent major depression (76979707) Major depressive disorder, recurrent, mild (F33.0) 4 Active confirmed Problem Generalized anxiety disorder (19395349) Generalized anxiety disorder (F41.1) 4 Active confirmed Problem Primary insomnia (4799421) Primary insomnia (F51.01) 4 Active confirmed Problem Long-term current use of drug therapy (890228826) Other care home (current) drug therapy (Z79.899) 4 Active confirmed Problem Elevated blood-pressure reading without diagnosis of hypertension (919443876) Elevated blood pressure reading (R03.0) Active confirmed Vital Signs Heart Rate 66 /min 11/04/2024 Respiratory Rate 16 /min 07/11/2024 Height-cm 162.56 cm 11/04/2024 Blood pressure diastolic 92 mm Hg 11/04/2024 Weight-kg 52.16 kg 11/04/2024 Height 64.00 in 11/04/2024 Blood pressure systolic 160 mm Hg 11/04/2024 Weight 115 lbs 11/04/2024 BMI 19.74 kg/m2 11/04/2024 Encounters Encounter Location Date Provider Diagnosis [facility] [address] [address] 02/15/2024 Tash Saucedo [facility] [address] [address] 04/19/2024 Tash Saucedo Generalized anxiety disorder F41.1 ; Major depressive disorder, recurrent, mild F33.0 ; Primary insomnia F51.01 ; Cannabis dependence, uncomplicated F12.20 ; 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 Z79.899 and Elevated blood pressure reading R03.0 [facility] [address] [facility] [address] [place] [address] 07/11/2024 Tash Saucedo Generalized anxiety disorder F41.1 ; Major depressive disorder, recurrent, mild F33.0 ; Primary insomnia F51.01 ; Cannabis dependence, uncomplicated F12.20 ; 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 Z79.899 and Elevated blood pressure reading R03.0 [facility] [address] [place] [address] 11/04/2024 Tash Saucedo Generalized anxiety disorder F41.1 ; Major depressive disorder, recurrent, mild F33.0 ; Primary insomnia F51.01 ; Cannabis dependence, uncomplicated F12.20 ; 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 depression - Remeron 45 mg at night Sertraline 100 mg daily obtain labs recently done therapy refer to PAT- scheduled with Tre patient would like to have kidney transplant [...] mg at bedtime - educated on rx 11/04/2024 Major depressive disorder, recurrent, mild (ICD-10 - [...] obtain labs recently done therapy refer to PAT- scheduled with Tre patient would like to have kidney transplant [...] mg at bedtime - educated on rx 11/04/2024 Primary insomnia (ICD-10 - F51.01) Insomnia: Care Instructions material was published, Learning About Sleeping Well material was published 1. depression - Remeron 45 mg at night Sertraline 100 mg daily obtain labs recently done therapy refer to PAT- scheduled with Tre patient would like to have kidney transplant [...] mg at bedtime - educated on rx 11/04/2024 Cannabis dependence, uncomplicated (ICD-10 - F12.20) Learning About Cannabis Use Disorder material was published, Learning About Substance Use Disorder material was published, Substance Use Disorder: Care Instructions material was published, Marijuana Use: Care Instructions material was published, Codependency: Care Instructions material was published 1. 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 depression - Remeron 45 mg at night Sertraline 100 mg daily obtain labs recently done therapy refer to PAT- scheduled with Tre patient would like to have kidney transplant [...] mg at bedtime - educated on rx 11/04/2024 Elevated blood pressure reading (ICD-10 - R03.0) 1. depression - Remeron 45 mg at night Sertraline 100 mg daily obtain labs recently done therapy refer to PAT- scheduled with Tre patient would like to have kidney transplant [...] mg at bedtime - educated on rx 11/04/2024 Encounter for screening for cardiovascular disorders (ICD-10 - Z13.6) 1. depression - Remeron 45 mg at night Sertraline 100 mg daily obtain labs recently done therapy refer to PAT- scheduled with Tre patient would like to have kidney transplant [...] mg at bedtime - educated on rx 11/04/2024 Dietary counseling and surveillance (ICD-10 - Z71.3) 1. depression - Remeron 45 mg at night Sertraline 100 mg daily obtain labs recently done therapy refer to PAT- scheduled with Tre patient would like to have kidney transplant [...] - educated on rx Plan Of Treatment Next Appt Details Provider Name:Tre posada, 11/23/2024 03:00:00 PM, [address] [facility] [address], [place], [address], Provider Name:Tash Saucedo , 01/05/2025 01:00:00 PM, [address], [facility], [place], [address], Insurance Providers Payer Name Payer Address Payer Phone Subscriber Number Group Number Insured Name Patient Relationship to Insured Coverage Start Date Coverage End Date Medicare-I l Medicare [address] [place] [address] [id number] CHANTEL KIM Self - patient is the insured Medicaid-I l Medicaid [address] [address] [place] [address] [id number] CHANTEL KIM Self - patient is the insured Medical (General) History Medical History History ICD Code Problems: Cannabis dependence Generalized anxiety disorder Long-term drug therapy Mild recurrent major depression Primary insomnia Severe recurrent major depression Weight loss , Surgical History Surgery Date(Month/Year) Plastic operation on hand with implant ( 762261859) Transfusion bld/bld compnt (65401) Kidney biopsy (2773499) Open heart surgery (0670099) 2 yrs old Heart surgery 04/20/1992
--- OUTSIDE RECORDS SUMMARY | 2024-11-17 11:09 | XMS_ITS | Clinical Summary ---
Author Organization [facility] Address [address] [address] Care Team Providers Care Hospital Nurse Liaison Name Role Phone Galen Hunter MD Primary Care Provider [phone] Source Comments [facility],non-owned Affiliates and Associated Physician Practices is amultiple site organization consisting of ambulatory clinics and hospital sitesin [place], [place], [place] and [place]. This disclosure is being madepursuant to the Care Everywhere program and may not contain all information available regarding this patient. Last updated 18.[facility] Allergies No known active allergies Medications * Be aware that medications may not be up to date on this document. Alwaysverify current medications with the patient. vitamin D, cholecalcifero l, 50 MCG (1999) tablet Take 2,000 Units [...] 4 Grams (4000 mg) / 24 hours. Active Additional Information Patient taking differently:500 mg Oral EVERY 6 HOURS PRN,Maximum allowable Acetaminophen amount = 4 Grams (4000 mg) / 24 hours., Reported on 12/13/2021 mirtazapine (REMERON) 30 MG tablet Take 1 (one) tablet by mouth at bedtime 30 tablet 2 1 Active polyethylene glycol 3350 (MIRALAX) 17 g packet Take 17 (seventeen) g by mouth 2 times daily 60 packet 1 Active senna-docusate (SENOKOT-S) 8.6-50 MG tablet Take 1 (one) tablet by mouth once daily 30 tablet 1 Active famotidine (PEPCID) 20 MG tablet Take 1 (one) tablet by mouth once daily 30 tablet 1 1 Active sevelamer carbonate (RENVELA) 0.8 GM pwd packetIndicati ons:Hyperphosp hatemia Take 1 (one) packet by mouth 3 times daily with meals Reasons: High Amount of Phosphate in the Blood 90 packet 2 1 Active lisinopril (PRINIVIL; ZESTRIL) 20 MG tablet Take 20 mg by mouth every evening 2 Active patiromer (VELTASSA) 8.4 g packet Take [...] after. Store packets in refrigerator. 6 packet 2 Active oxyCODONE, immediate release, (Roxicodone) 5 MG tablet Take 1 (one) tablet by mouth every 6 hours as needed for Pain 12 tablet 2 Active Active Problems Problem Noted Date Diagnosed Date Pre-transplant evaluation for kidney transplant 05/15/2021 Overview (05/15/2021): Shaggy Kim 1990 Referring Shank Faker: Merlin Quezada Listing Date: Dialysis Info: Type: Time: 746 days ( 04/30/2019) Blood Type: O POS Body mass index is 18.42 kg/m . ALERTS Field Human Resources Manager: Past Medical History: Diagnosis Date Chronic kidney disease Depression psychiatrist Dr. Tash Saucedo once a month 5-6 months. Difficulty swallowing difficult swallowing large pills. 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 Suicidal ideation Suicide attempt 2017 was not hospitalized. Past Surgical History: Procedure Laterality Date Heart Valve Surgery 1993 born with hole in heart, had open heart surgery at [facility]. No longer follows with a hydraulic bull riveter operator INSERTION DIALYSIS CATHETER N/A 03/12/2021 N/A; LAPAROSCOPIC PLACEMENT PERITONEAL DIALYSIS CATHETER AND LYSIS OF ADHESIONS IR PERITONEAL TUNNEL CATH PLACE 08/22/[address] CATH PL[address] 08/22/2020 Efra Ontiveros MD [facility] IVR IR PERITONEAL TUNNEL CATH PLACE 02/25/[address]UNNEL CATH PL[address] 02/25/2021 Efra Ontiveros MD [facility] IVR REMOVAL FOREIGN BODY N/A 06/30/2020 N/A; PD Catheter Removal Renal Biopsy 2019 [facility] Renal [facility] Social History Socioeconomic History Marital [...] Saucedo. Upon further research, she is a COURTESY CAR DRIVER who prescribes his medications. Patient states he went to [facility] in [place] but thinks they dropped them because he missed an appointment. Patient states he has MDD. Patient questioned the assessment questions. When WATERWORKS CHIEF ENGINEER mentioned obtaining records from [facility], patient asked why it was necessary. Patient felt those records were personal. Coping style, skills, and adaptation to illness: Patient sleeps to cope with stress. Patient states he uses melatonin and edibles to help him sleep. Patient states some of his stressors are the future, the past, and transplant Clinical Social Work Impression: It is the impression of this social and political studies professor that Shaggy Kim has several positive factors for Kidney transplant candidacy including sufficient insurance coverage, adequate support system, and appropriate discharge plan. - Patient states he has MDD. Attempted suicide twice in the last 10 years due to relationships, depression, and insecurities. Patient uses edibles to help him cope, and sleep. Patient states his stressors are the future, the past, and transplant. Plan: tool salvage worker to provide supportive services as needed. Patient appears to be a reasonable candidate for transplant from a psychosocial perspective. Post transplant arrangement forms are needed prior to being listed. Psychiatric Consult Recommended: Yes related to:Substance Abuse, Unstable Mental Health, Coping Strategies and Comprehension Concerns. 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 Resolved Problems Problem Noted Date Diagnosed Date Resolved Date Fever 06/28/2020 07/12/2020 Encounters Date Type Department Care Team Description 10/12/2024 9:01 PM CDT - 10/13/2024 1:42 AM CDT Emergency [facility] EMERGENCY DEPARTMENT [address] [place] [phone] Arturo Vázquez, Karishma Cid MD Complication of vascular dialysis catheter, unspecified complication, initial encounter (Primary Dx); Speer syndrome; ESRD (end stage renal disease) (HCC); Hematoma of right chest wall, initial encounter Discharge Disposition: Home or Self Care from Last 3 Months Immunizations Immunization Administration Dates Next Due COVID AMANDO PRIMARY 18+YR 07/05/2020 FLU VACCINE QUAD IIV4 [...] on file Legal Sex Male 5:34 AM 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 Gender Identity Not on file Sexual Orientation [...] 1:21 PM CDT Height 162.6 cm (5' 4) 02/04/2022 1:21 PM CDT Body Mass Index 19.19 02/04/2022 1:21 PM CDT Plan of Treatment Health Maintenance Due Date Last Done Comments MEDICARE AWV 12 MONTHS 1989 DTAP/TDAP/TD VACCINES (1 - Tdap) 2008 HPV VACCINE (1 - 3-dose SCDM series) 2016 PNEUMOCOCCAL VACCINE (2 of 2 - PPSV23, PCV20, or PCV21) 03/19/2020 01/23/2020, 10/25/2019 HEPATITIS B VACCINE (5 of 5 - Risk Dialysis Recombivax 3-dose series) 01/22/2021 01/23/2020, 10/04/2019, 09/16/2019, Additional history exists COVID-19 VACCINE (2 - season) 2023 07/05/2020 DEPRESSION SCREENING 04/20/2024 INFLUENZA VACCINE (#1) 2024 , 01/23/2020, 01/19/2020 ZOSTER VACCINE (1 of 2) 2039 HEPATITIS C SCREENING Completed 05/01/2021, 021 HIV [...] topic Medical Devices Implanted Type Area Manager Career Device Identifier Shelf Expiration Date Model / Serial / Lot Kit Durathane Drflw Embosafe Chrnc Dlys Implanted:Qty: 1 on 06/29/2020 at [facility] Right: Chest Wall [employer] 08/17/2022 [id number] / / [id number] Kit Saray Drflw Embosafe Chrnc Dlys Implanted:Qty: 1 on 01/17/2021 at [facility] Right: Chest Wall [employer] 05/20/2023 [id number] / / [id number] Description: Peritoneal Dialysis Catheter Implanted:Qty: 1 on 03/12/2021 by Cr Titus MD at [facility] N/A: Abdomen 05/17/2024 [id number] / / [id number] Procedures Procedure Name Priority Date/Time Associated Diagnosis Comments ED LACERATION REPAIR Routine 10/13/2024 12:28 AM CDT MAGNESIUM BLOOD STAT 10/12/2024 11:54 PM CDT PHOSPHORUS BLOOD STAT 10/12/2024 11:5 4 PM CDT COMPREHENSIVE METABOLIC PANEL STAT 10/12/2024 11:54 PM CDT PT-INR [facility] STAT 10/12/2024 10:06 PM CDT CBC W AUTO DIFFERENTIAL STAT 10/12/2024 10:06 PM CDT XR CHEST 1VW PORTABLE STAT 10/12/2024 9:51 PM CDT Speer syndrome Complication of vascular dialysis catheter, unspecified complication, initial encounter HEPATITIS C ANTIBODY Routine 05/01/2021 9:21 AM 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 Pre-transplant evaluation for kidney transplant HIV-1 HIV-2 ANTIBODY + HIV P24 AG PANEL Routine 05/01/2021 9:21 AM 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 Pre-transplant evaluation for kidney transplant from Last 3 Months or Most Recently Relevant to Health Maintenance Results * Laceration Repair (10/13/2024 12:28 AM CDT) Narrative Karishma Laurent MD - 10/13/2024 12:28 AM CDT Karishma Laurent MD 10/27/2024 5:20 AM Laceration Repair Date/Time: 10/13/2024 12:28 AM Performed by: Marie Ritter MD Authorized by: Karishma Laurent MD Consent: Consent obtained: Verbal Consent given by: Patient Risks, benefits, and alternatives were discussed: yes Risks discussed: Infection, pain and need for additional repair Alternatives discussed: Observation [place] protocol: Relevant documents present and verified: yes Test results available: yes Immediately prior to procedure, a time out was called: yes Patient identity confirmed: Verbally with patient and arm band Anesthesia: Anesthesia method: Local infiltration Local anesthetic: Lidocaine 1% WITH epi Laceration details: Location: Trunk Trunk location: R chest Length (cm): 0.5 Pre-procedure details: Preparation: Patient was prepped and draped in usual sterile fashion Exploration: Hemostasis achieved with: Direct pressure and epinephrine Contaminated: no Treatment: Area cleansed with: Chlorhexidine Skin repair: Repair method: Sutures Suture size: 3-0 (silk) Suture technique: Vertical mattress Number of sutures: 2 Approximation: Approximation: Close Repair type: Repair type: Simple Post-procedure details: Dressing: Open (no dressing) Procedure completion: Tolerated well, no immediate complications Comments: Hemostasis of oozing procedure site achieved with vertical mattress x2. Marie Ritter MD Emergency Medicine PGY1 us Karishma Laurent MD PROCEDURE/MINOR SURGICAL ORD ERABLES Final Result * (ABNORMAL) COMPREHENSIVE METABOLIC PANEL (10/12/2024 11:54 PM CDT) BUN 172(H) 7 - 26 mg/dL 10/13/2024 1:01 AM [facility] Creatinine 23.23(H) 0.71 - 1.16 mg/dL 10/13/2024 1:01 AM [facility] Sodium 133(L) 136 - 145 mmol/L 10/13/2024 1:01 AM [facility] Potassium 8.5(HH) 3.5 - 4.5 mmol/L 10/13/2024 1:01 AM [facility] Chloride 96(L) 98 - 107 mmol/L 10/13/2024 1:01 AM [facility] CO2 12(L) 22 - 29 mmol/L 10/13/2024 1:01 AM [facility] Glucose 101(H) 70 - 99 mg/dL 10/13/2024 1:01 AM [facility] Calcium 9.0 8.4 - 10.2 mg/dL 10/13/2024 1:01 AM [facility] Protein Total 7.2 6.0 - 8.3 g/dL 10/13/2024 1:01 AM [facility] Albumin 4.2 3.4 - 5.0 g/dL 10/13/2024 1:01 AM [facility] Bilirubin Total 0.5 0.2 - 1.2 mg/dL 10/13/2024 1:01 AM [facility] Alkaline Phosphatase 91 40 - 150 U/L 10/13/2024 1:01 AM [facility] ALT 5 5 - 55 U/L 10/13/2024 1:01 AM [facility] AST <5(L) 5 - 34 U/L 10/13/2024 1:01 AM [facility] Anion Gap 25(H) 6 - 16 10/13/2024 1:01 AM [facility] BUN/Creatinine Ratio 7 7 - 23 10/13/2024 1:01 AM [facility] Osmolality Calculated 333(H) 275 - 295 mOsm/kg 10/13/2024 1:01 AM [facility] Albumin/Globulin Ratio 1.4 1.1 - 2.3 10/13/2024 1:01 AM [facility] eGFR by CKD-EPI 2(L) >=90 mL/min/1. 73 m2 10/13/2024 1:01 AM [facility] Blood BLOOD SPECIMEN / Unknown Venipuncture / Unknown 10/12/2024 11:54 PM [facility] 10/13/2024 12:14 AM [facility] - 10/13/2024 1:01 AM [facility] Estimated Glomerular Filtration Rate (eGFR) calculated using the CKD-EPI Creatinine Equation (2020), per the National Kidney Foundation and [place] Society of Nephrology recommendations. [employer] LAB - CHEMISTRY ORDERABLES F inal Result Performing Organization Address City/[facility]/ZIP Co de Phone Number [address] [address], [place] [phone] * (ABNORMAL) PHOSPHORUS BLOOD (10/12/2024 11:54 PM CDT) Phosphorus 11.7(H) 2.8 - 5.1 mg/dL 10/13/2024 1:01 AM CDT [facility] Blood BLOOD SPECIMEN / Unknown Venipuncture / Unknown 10/12/2024 11:54 PM CDT 10/13/2024 12:14 AM CDT [facility] LAB - CHEMISTRY ORDERABLES F inal Result Performing Organization Address [facility] Co de Phone Number [address] [address], [place] [phone] * MAGNESIUM BLOOD (10/12/2024 11:54 PM CDT) Magnesium 1.7 1.6 - 2.6 mg/dL 10/13/2024 1:01 AM CDT [facility] Blood BLOOD SPECIMEN / Unknown Venipuncture / Unknown 10/12/2024 11:54 PM CDT 10/13/2024 12:14 AM CDT [facility] LAB - CHEMISTRY ORDERABLES F inal Result Performing Organization Address City/[facility]/ZIP Co de Phone Number [address] [address], [place] [phone] * (ABNORMAL) PT-INR [facility] (10/12/2024 10:06 PM CDT) PT 18.2(H) 12.1 - 14.8 Seconds 10/12/2024 10:51 PM CDT [facility] INR 1.5 See Comment 10/12/2024 10:51 PM CDT [facility] Comment:The suggested therap eutic range for standard coumadin (warfarin) therapy is an INR of 2.0-3.0. For high-risk patients (Mechanical Mitral Valve Prosthesis, etc.), the suggested prophylactic therapeutic range is an INR of 2.5-3.5. Blood BLOOD SPECIMEN / Unknown Venipuncture / Unknown 10/12/2024 10:06 PM CDT 10/12/2024 10:13 PM CDT us Arturo Vázquez DO LAB - COAGULATION ORDERABLES Final Result [facility] [address] [place] [address], [place] [phone] * (ABNORMAL) CBC W AUTO DIFFERENTIAL (10/12/2024 10:06 PM CDT) WBC 7.4 4.0 - 10.7 x10E9/L 10/12/2024 10:45 PM [facility] RBC Count 3.21(L) 4.30 - 5.80 x10E12/L 10/12/2024 10:45 PM [facility] Hemoglobin 9.7(L) 13.3 - 17.5 g/dL 10/12/2024 10:45 PM [facility] Hematocrit 27.0(L) 38.7 - 51.1 % 10/12/2024 10:45 PM [facility] MCV 84.1 80.0 - 98.0 fL 10/12/2024 10:45 PM [facility] MCH 30.2 26.7 - 33.6 pg 10/12/2024 10:45 PM [facility] MCHC 35.9 31.7 - 36.3 g/dL 10/12/2024 10:45 PM [facility] RDW-CV 15.8(H) 11.3 - 14.8 % 10/12/2024 10:45 PM [facility] Platelet Count 135(L) 150 - 420 x10E9/L 10/12/2024 10:45 PM [facility] MPV 9.9 7.8 - 11.4 fL 10/12/2024 10:45 PM [facility] Neutrophil % 77.0(H) 41.0 - 74.0 % 10/12/2024 10:45 PM [facility] Lymphocyte % 8.8(L) 17.0 - 47.0 % 10/12/2024 10:45 PM [facility] Monocyte % 11.6(H) 3.0 - 11.0 % 10/12/2024 10:45 PM [facility] Eosinophil % 1.8 0.0 - 7.0 % 10/12/2024 10:45 PM [facility] Basophil % 0.4 0.0 - 1.6 % 10/12/2024 10:45 PM [facility] Immature Granulocytes % 0.4 0.0 - 1.0 % 10/12/2024 10:45 PM [facility] Neutrophil Absolute 5.70 1.60 - 7.50 x10E9/L 10/12/2024 10:45 PM [facility] Lymphocyte Absolute 0.65(L) 1.00 - 4.40 x10E9/L 10/12/2024 10:45 PM [facility] Monocyte Absolute 0.86 0.15 - 1.00 x10E9/L 10/12/2024 10:45 PM [facility] Eosinophil Absolute 0.13 0.00 - 0.60 x10E9/L 10/12/2024 10:45 PM [facility] Basophil Absolute 0.03 0.00 - 0.13 x10E9/L 10/12/2024 10:45 PM [facility] Blood BLOOD SPECIMEN / Unknown Venipuncture / Unknown 10/12/2024 10:06 PM CDT 10/12/2024 10:20 PM CDT us Arturo Vázquez DO LAB - HEMATOLOGY ORDERABLES Final Result [facility] [address] [place] [address], [place] [phone] * XR Chest 1Vw Portable (10/12/2024 9:51 PM CDT) Anatomical Region Laterality Modality Chest Digital Radiogra phy 10/12/2024 10:2 8 PM CDT Narrative 10/13/2024 8:02 AM CDT PROCEDURE: XR CHEST 1VW PORTABLE, DATE/TIME OF EXAM: 10/12/2024 9:51 PM, LOCATION [facility] INDICATION: Q79.8: Bruna syndrome T82.9XXA: Complication of vascular dialysis catheter, unspecified complication, initial encounter ADDITIONAL CLINICAL INFORMATION: Ordering Provider Reason For Exam: Bruna syndrome Technologist Note: Additional: COMPARISON: Chest x-ray dated 11/01/2021 FINDINGS/IMPRESSION: *Curvilinear, serpiginous radiopaque wire overlies the right lung apex. *Right subclavian double-lumen central line with tips overlying the right atrium *Sternotomy wires appear appear aligned without fracture of the most inferior wire. No focal consolidation, pneumothorax, or pleural effusion. Enlarged cardiac silhouette. No displaced fractures identified. Report dictated by Barbie Mccloud Dr, MD (logistics vice president). Shahla Mcnamara MD have personally reviewed and interpreted this examination/study. > Interpreting Provider: Shahla Bertrand MD on 10/13/2024 8:02 AM Procedure Note Shahla Bertrand MD - 10/13/2024 PROCEDURE: XR CHEST 1VW PORTABLE, DATE/TIME OF EXAM: 10/12/2024 9:51PM, LOCATION [facility] INDICATION: Q79.8: Bruna syndrome T82.9XXA: Complication of vascular dialysis catheter, unspecified complication, initial encounter ADDITIONAL CLINICAL INFORMATION: Ordering Provider Reason For Exam: Speer syndrome Technologist Note: Additional: COMPARISON: Chest x-ray dated 11/01/2021 FINDINGS/IMPRESSION: *Curvilinear, serpiginous radiopaque wire overlies the right lung apex. *Right subclavian double-lumen central line with tips overlying theright atrium *Sternotomy wires appear appear aligned without fracture of the most inferior wire. No focal consolidation, pneumothorax, or pleural effusion. Enlarged cardiac silhouette. No displaced fractures identified. Report dictated by Barbie Mccloud Dr, MD (logistics vice president). Shahla Mcnamara MD have personally reviewed and interpreted this examination/study. > Interpreting Provider: Shahla Bertrand MD on 10/13/2024 8:02 AM Arturo Vázquez DO DIAGNOSTIC IMAGING ORDERABLE S Final Result * HIV-1 HIV-2 ANTIBODY + HIV P24 AG PANEL (05/01/2021 9:21 AM 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) HIV Antigen/Antibod y 1 & 2 Non-reacti ve Non-react jammie 05/01/2021 11:08 AM 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 [facility] Comment:No Laboratory eviden ce of HIV infection. Blood BLOOD SPECIMEN / Unknown Lab Venipuncture / Unknown 05/01/2021 9:21 AM 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 05/01/2021 9:48 AM 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 Alexandra Ramachandran MD LAB - CHEMISTRY ORDERABLES F inal Result Performing Organization Address [facility]/ZIP Co de Phone Number [address] [address], [place] [phone] * HEPATITIS C ANTIBODY (05/01/2021 9:21 AM 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) Hepatitis C Antibody Non-react jammie Non-reac tive 05/01/2021 11:08 AM 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 [facility] Comment:Hepatitis C Antibody screen indicates no serologic evidence of past or current infection with Hepatitis C Virus. Patients with unexplained liver disease who are immunocompromised or suspected of having acute Hepatitis C infection may benefit from Nucleic Acid Test (ELMO) for Hepatitis C Viral RNA to confirm Hepatitis C status. Blood BLOOD SPECIMEN / Unknown Lab Venipuncture / Unknown 05/01/2021 9:21 AM 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 05/01/2021 9:48 AM 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 us Alexandra Ramachandran MD LAB - CHEMISTRY ORDERABLES F inal Result [address] [address], [place] [phone] from Last 3 Months or Most Recently Relevant to Health Maintenance Insurance MEDICAID - [facility] MEDICARE MEDICARE MEDICAID - [place] Advance Directives * Full Code (Latest Code Status on File) Date Activated Date Inactivated Comments 01/14/2021 12:11 AM 01/19/2021 2:47 PM * Full Code Date Activated Date Inactivated Comments 06/28/2020 3:21 PM 07/02/2020 2:26 PM Care Teams Hospital Nurse Liaison Relationship Specialty Start Date End Date Galen Hunter MD [address] [place] [address] PCP - General Internal Medicine 10/12/24
--- OUTSIDE RECORDS SUMMARY | 2024-11-17 11:09 | XMS_ITS | Encounter Summary ---
Author Organization [facility] Address [address] [place] [address] Care Team Providers Care Ticket Agent Name Role Phone Bernadette Robertson MD Primary Care Provider [phone] Bernadette Robertson MD Primary Care Provider [phone] Galen Hunter MD Primary Care Provider [phone] Encounter Details Date Type Department Care Team (Late st Contact [facility]) Description 03/04/2021 Telephone [facility] Surgery [address] [place] [address] Cr Titus MD [address] [phone] Social History Tobacco Use Types Packs/Day Years [...] on file 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
--- OUTSIDE RECORDS SUMMARY | 2024-11-17 11:09 | XMS_ITS | Encounter Summary ---
Author Organization [facility] Address [address] [place] [address] Care Team Providers Care Unleavened Dough Mixer Name Role Phone Bernadette Robertson MD Primary Care Provider [phone] Bernadette Robertson MD Primary Care Provider [phone] Galen Hunter MD Primary Care Provider [phone] Encounter Details Date Type Department Care Team (Late st Contact [facility]) Description 02/28/2021 Telephone [facility] Surgery [address] [place] [address] Cr Titus MD [address] [phone] Social History Tobacco Use Types Packs/Day Years [...] on file 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
--- OUTSIDE RECORDS SUMMARY | 2024-11-17 11:09 | XMS_ITS | Clinical Summary ---
Author Organization [facility] Address [address] [place] [id number] Care Team Providers Care Bleach Boiler Puller Name Role Phone None, Provider MD Primary [...] 2:16 PM CDT Height 162.6 cm (5' 4) 01/11/2021 2:16 PM CDT Body Mass Index 18.54 01/11/2021 2:16 PM CDT Plan of Treatment Health Maintenance Due Date Last Done Comments Annual Physical 1992 Hepatitis C 2007 DTaP, Tdap and Td Vaccines ( 1 - Tdap) 2008 01/21/1994 Hepatitis B Vaccines (1 of 3 - 19+ 3-dose series) 2008 Pneumococcal Vaccine: Pediat rics (0 to 5 Years) and At-Risk Patients (6 to 49 Years) (1 of 2 - PCV) 2008 HPV Vaccines (1 - 3-dose SCD M series) 2016 COVID-19 Vaccine (2 - 2023-2 5 season) 2023 07/05/2020 Meningococcal B Vaccine Aged Out No l onger eligible based on patient's age to complete this topic Meningococcal Vaccine Aged Out No reza jacques eligible based on patient's age to complete this topic RSV Immunizations Under 20 Months Aged Out No longer eligible based on patient's age to complete this topic Insurance MEDICAID Care Teams Bleach Boiler Puller Relationship Specialty Start Date End Date None, Provider, PCP - General 01/11/21
--- OUTSIDE RECORDS SUMMARY | 2024-11-17 11:09 | XMS_ITS | Encounter Summary ---
Author Organization [facility] Address [address] [place] [address] Care Team Providers Care Tow Truck Driver Name Role Phone Bernadette Robertson MD Primary Care Provider [phone] Bernadette Robertson MD Primary Care Provider [phone] Galen Hunter MD Primary Care Provider [phone] Encounter Details Date Type Department Care Team (Late st Contact [facility]) Description 03/01/2021 Telephone [facility] Surgery [address] [place] [address] Cr Titus MD [address] [phone] Social History Tobacco Use Types Packs/Day Years [...] on file 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
[2024-11-17 11:17] VITALS: BP 143/96; PULSE 74; RESP 18; O2SAT 98
--- OUTSIDE RECORDS SUMMARY | 2024-11-17 11:34 | XMS_ITS | Encounter Summary ---
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
--- OUTSIDE RECORDS SUMMARY | 2024-11-17 11:34 | XMS_ITS | Encounter Summary ---
Author Organization [facility] Address [address] [place] [address] Care Team Providers Care Seismograph Computer Name Role Phone Bernadette Robertson MD Primary Care Provider Bernadette Robertson MD Primary Care Provider [phone] Galen Hunter MD Primary Care Provider [phone] Encounter Details Date Type Department Care Team (Late st Contact [facility]) Description 02/28/2021 Telephone [facility] Surgery [address] [place] [address] Cr Titus MD [address] [phone] Social History Tobacco Use Types Packs/Day Years [...] on file 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
--- OUTSIDE RECORDS SUMMARY | 2024-11-17 11:34 | XMS_ITS | Encounter Summary ---
Author Organization [facility] Address [address] [facility] 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
--- OUTSIDE RECORDS SUMMARY | 2024-11-17 11:34 | XMS_ITS | Encounter Summary ---
Author Organization [facility] Address [address] [facility] [place] [address] Care Team Providers Care Template Reproduction Technician Name Role Phone Bernadette Robertson MD Primary Care Provider [phone] Bernadette Robertson MD Primary Care Provider [phone] Galen Hunter MD Primary Care Provider [phone] Encounter Details Date Type Department Care Team (Late st Contact [facility]) Description 02/28/2021 Telephone [facility] Surgery [address] [place] [address] Cr Titus MD [address] [phone] Social History Tobacco Use Types Packs/Day Years [...] on file 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
--- OUTSIDE RECORDS SUMMARY | 2024-11-17 11:34 | XMS_ITS | Encounter Summary ---
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 No / Unsure 05/01/2021 8:23 AM HEAT ENGINEERING TEACHER documented as of this encounter Functional Status * Is person deaf or have serious hearing difficulty? Answer Date of Assessment Author No 03/12/2021 1:46 PM HEAT ENGINEERING TEACHER Aguustus Barrios, RN * Is person blind or [...] on filedocumented in this encounter Care Teams Agency Development Manager Relationship Specialty Start Date End Date Bernadette Robertson MD [facility] [address] [facility]/ [address] [place] [address] PCP - General 11/07/21 10/11/24 Galen Hunter MD [address] [place] [address] PCP - General Internal Medicine 10/12/24 documented as of this encounter
--- OUTSIDE RECORDS SUMMARY | 2024-11-17 11:35 | XMS_ITS | Encounter Summary ---
Author Organization [facility] Address [address] [facility] [place] [address] Care Team Providers Care Rug Receiving Clerk Name Role Phone Bernadette Robertson MD Primary Care Provider [phone] Bernadette Robertson MD Primary Care Provider [phone] Galen Hunter MD Primary Care Provider [phone] Encounter Details Date Type Department Care Team (Late st Contact [facility]) Description 03/04/2021 Telephone [facility] Surgery [address] [place] [address] Cr Titus MD [address] [phone] Social History Tobacco Use Types Packs/Day Years [...] on file 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
--- OUTSIDE RECORDS SUMMARY | 2024-11-17 11:35 | XMS_ITS | Clinical Summary ---
Author Organization [facility] [employer] Address [address] [place] [address] Care Team Providers Care Raking Machine Operator Name Role Phone Galen Hunter MD Primary Care Provider [phone] Source Comments [facility] [employer],non-owned Affiliates and Associated Physician Practices is amultiple site organization consisting of ambulatory clinics and hospital sitesin [place], [place] and [place]. This disclosure is being madepursuant to the Care Everywhere program and may not contain all information available regarding this patient. Last updated 18.[employer] Allergies No known active allergies Medications * [...] 05/15/2021 Overview (05/15/2021): Shaggy Kim 1990 Referring Recreation Therapist: Merlin Quezada Listing Date: Dialysis Info: Type: Time: 746 days ( 04/30/2019) Blood Type: O POS Body mass index is 18.42 kg/m . ALERTS Career Development Counselor: Past Medical History: Diagnosis Date Chronic kidney [...] in heart, had open heart surgery at [facility]. No longer follows with a supervisor tumblers INSERTION DIALYSIS CATHETER N/A 03/12/2021 N/A; LAPAROSCOPIC PLACEMENT PERITONEAL DIALYSIS CATHETER AND LYSIS OF ADHESIONS IR PERITONEAL TUNNEL CATH PLACE 08/22/[address] CATH PL[address] 08/22/2020 Efra Ontiveros MD [facility] IVR IR PERITONEAL TUNNEL CATH PLACE 02/25/[address]UNNEL CATH PL[address] 02/25/2021 Efra Ontiveros MD [facility] IVR REMOVAL FOREIGN BODY N/A 06/30/2020 N/A; PD Catheter Removal Renal Biopsy 2019 [facility] Renal [facility] Social History Socioeconomic History Marital status: Single [...] relationships, depression, and insecurities. Patient states to [facility] he has suicidal ideations. Patient is not under the care of a counselor, therapist, or psychiatrist. Patient states he is seeing a counselor, Dr. Tash Saucedo. Upon further research, she is a SPOT WORKER who prescribes his medications. Patient states he went to [facility] in [place] but thinks they dropped them because he missed an appointment. Patient states he has MDD. Patient questioned the assessment questions. When [employer] mentioned obtaining records from [facility], patient asked why it was necessary. Patient felt those records were personal. Coping style, skills, and adaptation to illness: Patient sleeps to cope with stress. Patient states he uses melatonin and edibles to help him sleep. Patient states some of his stressors are the future, the past, and transplant Clinical Social Work Impression: It is the impression of this social welfare clerk that Shaggy Kim has several positive factors for Kidney transplant candidacy including sufficient insurance coverage, adequate support system, and appropriate discharge plan. - Patient states he has MDD. Attempted suicide twice in the last 10 years due to relationships, depression, and insecurities. Patient uses edibles to help him cope, and sleep. Patient states his stressors are the future, the past, and transplant. Plan: workers compensation adjuster to provide supportive services as needed. Patient appears to be a reasonable candidate for transplant from a psychosocial perspective. Post transplant arrangement forms are needed prior to being listed. Psychiatric Consult Recommended: Yes related to:Substance Abuse, Unstable Mental Health, Coping Strategies and Comprehension Concerns. 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 Resolved Problems Problem Noted Date Diagnosed Date Resolved Date Fever 06/28/2020 07/12/2020 Encounters Date Type Department Care Team Description 10/12/2024 9:01 PM CDT - 10/13/2024 1:42 AM CDT Emergency [facility] EMERGENCY DEPARTMENT [address] [place] [phone] Arturo Vázquez, Karishma Cid MD Complication of vascular dialysis catheter, unspecified complication, initial encounter (Primary Dx); Mccarley syndrome; ESRD (end stage renal disease) (HCC); [...] on file 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 Gender Identity Not on file Sexual Orientation [...] this topic Medical Devices Implanted Type Area Sausage Smoker Device Identifier Shelf Expiration Date Model / Serial / Lot Kit Durathane Drflw Embosafe Chrnc Dlys Implanted:Qty: 1 on 06/29/2020 at [facility] Right: Chest Wall [employer] 08/17/2022 [id number] / / [id number] Kit Saray Drflw Embosafe Chrnc Dlys Implanted:Qty: 1 on 01/17/2021 at [facility] Right: Chest Wall [employer] 05/20/2023 [id number] / / [id number] Description: Peritoneal Dialysis Catheter Implanted:Qty: 1 on 03/12/2021 by Cr Titus MD at [facility] N/A: Abdomen 05/17/2024 [id number] / / [id number] Procedures Procedure Name Priority Date/Time Associated Diagnosis [...] 1VW PORTABLE STAT 10/12/2024 9:51 PM CDT Mccarley syndrome Complication of vascular dialysis catheter, unspecified complication, initial encounter HEPATITIS C ANTIBODY Routine 05/01/2021 9:21 AM SHADOWGRAPH OPERATOR Pre-transplant evaluation for kidney transplant HIV-1 HIV-2 ANTIBODY + HIV P24 AG PANEL Routine 05/01/2021 9:21 AM SHADOWGRAPH OPERATOR Pre-transplant evaluation for kidney transplant from Last [...] need for additional repair Alternatives discussed: Observation [place] protocol: Relevant documents present and verified: yes [...] 7 - 26 mg/dL 10/13/2024 1:01 AM [facility] Creatinine 23.23(H) 0.71 - 1.16 mg/dL 10/13/2024 1:01 AM [facility] Sodium 133(L) 136 - 145 mmol/L 10/13/2024 1:01 AM [facility] Potassium 8.5(HH) 3.5 - 4.5 mmol/L 10/13/2024 1:01 AM [facility] Chloride 96(L) 98 - 107 mmol/L 10/13/2024 1:01 AM [facility] CO2 12(L) 22 - 29 mmol/L 10/13/2024 1:01 AM [facility] Glucose 101(H) 70 - 99 mg/dL 10/13/2024 1:01 AM [facility] Calcium 9.0 8.4 - 10.2 mg/dL 10/13/2024 1:01 AM [facility] Protein Total 7.2 6.0 - 8.3 g/dL 10/13/2024 1:01 AM [facility] Albumin 4.2 3.4 - 5.0 g/dL 10/13/2024 1:01 AM [facility] Bilirubin Total 0.5 0.2 - 1.2 mg/dL 10/13/2024 1:01 AM [facility] Alkaline Phosphatase 91 40 - 150 U/L 10/13/2024 1:01 AM [facility] ALT 5 5 - 55 U/L 10/13/2024 1:01 AM [facility] AST <5(L) 5 - 34 U/L 10/13/2024 1:01 AM [facility] Anion Gap 25(H) 6 - 16 10/13/2024 1:01 AM [facility] BUN/Creatinine Ratio 7 7 - 23 10/13/2024 1:01 AM [facility] Osmolality Calculated 333(H) 275 - 295 mOsm/kg 10/13/2024 1:01 AM [facility] Albumin/Globulin Ratio 1.4 1.1 - 2.3 10/13/2024 1:01 AM [facility] eGFR by CKD-EPI 2(L) >=90 mL/min/1. 73 m2 10/13/2024 1:01 AM [facility] Blood BLOOD SPECIMEN / Unknown Venipuncture / Unknown 10/12/2024 11:54 PM [facility] 10/13/2024 12:[address] [facility] - 10/13/2024 1:01 AM [facility] Estimated Glomerular Filtration Rate (eGFR) calculated using the CKD-EPI Creatinine Equation (2020), per the National Kidney Foundation and [place] Society of Nephrology recommendations. [facility] LAB - CHEMISTRY ORDERABLES F inal Result Performing Organization Address City/[facility]/ZIP Co de Phone Number [address] [address], [facility] [phone] * (ABNORMAL) PHOSPHORUS BLOOD (10/12/2024 11:54 PM CDT) Phosphorus 11.7(H) 2.8 - 5.1 mg/dL 10/13/2024 1:01 AM CDT [facility] Blood BLOOD SPECIMEN / Unknown Venipuncture / Unknown 10/12/2024 11:54 PM CDT 10/13/2024 12:14 AM CDT [facility] LAB - CHEMISTRY ORDERABLES F inal Result Performing Organization Address [facility] Co de Phone Number [address] [address], [facility] [phone] * MAGNESIUM BLOOD (10/12/2024 11:54 PM CDT) Magnesium 1.7 1.6 - 2.6 mg/dL 10/13/2024 1:01 AM CDT [facility] Blood BLOOD SPECIMEN / Unknown Venipuncture / Unknown 10/12/2024 11:54 PM CDT 10/13/2024 12:14 AM CDT [facility] LAB - CHEMISTRY ORDERABLES F inal Result Performing Organization Address City/[facility]/ZIP Co de Phone Number [address] [address], [facility] [phone] * (ABNORMAL) PT-INR [facility] (10/12/2024 10:06 PM CDT) PT 18.2(H) 12.1 - 14.8 Seconds 10/12/2024 10:51 PM CDT [facility] INR 1.5 See Comment 10/12/2024 10:51 PM CDT [facility] Comment:The suggested therap eutic range for standard coumadin (warfarin) therapy is an INR of 2.0-3.0. For high-risk patients (Mechanical Mitral Valve Prosthesis, etc.), the suggested prophylactic therapeutic range is an INR of 2.5-3.5. Blood BLOOD SPECIMEN / Unknown Venipuncture / Unknown 10/12/2024 10:06 PM CDT 10/12/2024 10:13 PM CDT us Arturo Vázquez DO LAB - COAGULATION ORDERABLES Final Result [facility] [address] [place] [address], [facility] [phone] * (ABNORMAL) CBC W AUTO DIFFERENTIAL (10/12/2024 10:06 PM CDT) WBC 7.4 4.0 - 10.7 x10E9/L 10/12/2024 10:45 PM [facility] RBC Count 3.21(L) 4.30 - 5.80 x10E12/L 10/12/2024 10:45 PM [facility] Hemoglobin 9.7(L) 13.3 - 17.5 g/dL 10/12/2024 10:45 PM [facility] Hematocrit 27.0(L) 38.7 - 51.1 % 10/12/2024 10:45 PM [facility] MCV 84.1 80.0 - 98.0 fL 10/12/2024 10:45 PM [facility] MCH 30.2 26.7 - 33.6 pg 10/12/2024 10:45 PM [facility] MCHC 35.9 31.7 - 36.3 g/dL 10/12/2024 10:45 PM [facility] RDW-CV 15.8(H) 11.3 - 14.8 % 10/12/2024 10:45 PM [facility] Platelet Count 135(L) 150 - 420 x10E9/L 10/12/2024 10:45 PM [facility] MPV 9.9 7.8 - 11.4 fL 10/12/2024 10:45 PM [facility] Neutrophil % 77.0(H) 41.0 - 74.0 % 10/12/2024 10:45 PM [facility] Lymphocyte % 8.8(L) 17.0 - 47.0 % 10/12/2024 10:45 PM [facility] Monocyte % 11.6(H) 3.0 - 11.0 % 10/12/2024 10:45 PM [facility] Eosinophil % 1.8 0.0 - 7.0 % 10/12/2024 10:45 PM [facility] Basophil % 0.4 0.0 - 1.6 % 10/12/2024 10:45 PM [facility] Immature Granulocytes % 0.4 0.0 - 1.0 % 10/12/2024 10:45 PM [facility] Neutrophil Absolute 5.70 1.60 - 7.50 x10E9/L 10/12/2024 10:45 PM [facility] Lymphocyte Absolute 0.65(L) 1.00 - 4.40 x10E9/L 10/12/2024 10:45 PM [facility] Monocyte Absolute 0.86 0.15 - 1.00 x10E9/L 10/12/2024 10:45 PM [facility] Eosinophil Absolute 0.13 0.00 - 0.60 x10E9/L 10/12/2024 10:45 PM [facility] Basophil Absolute 0.03 0.00 - 0.13 x10E9/L 10/12/2024 10:45 PM [facility] Blood BLOOD SPECIMEN / Unknown Venipuncture / Unknown 10/12/2024 10:06 PM CDT 10/12/2024 10:20 PM CDT us Arturo Vázquez DO LAB - HEMATOLOGY ORDERABLES Final Result [facility] [address] [place] [address], [facility] [phone] * XR Chest 1Vw Portable (10/12/2024 9:51 PM CDT) Anatomical Region Laterality Modality Chest Digital Radiogra phy 10/12/2024 10:2 8 PM CDT Narrative 10/13/2024 8:02 AM CDT PROCEDURE: XR CHEST 1VW PORTABLE, DATE/TIME OF EXAM: 10/12/2024 9:51 PM, LOCATION [facility] 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 Shahla Mcnamara MD have personally reviewed and interpreted this examination/study. 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 *Right subclavian double-lumen central line with tips overlying theright atrium *Sternotomy wires appear appear aligned without fracture of the most inferior wire. No focal consolidation, pneumothorax, or pleural effusion. Enlarged cardiac silhouette. No displaced fractures identified. Report dictated by Barbie Mccloud Dr, MD (orthodontist vice president). Shahla Mcnamara MD have personally reviewed and interpreted this examination/study. > Interpreting Provider: Shahla Bertrand MD on 10/13/2024 8:02 AM Arturo Vázquez DO DIAGNOSTIC IMAGING ORDERABLE S Final Result * HIV-1 HIV-2 ANTIBODY + HIV P24 AG PANEL (05/01/2021 9:21 AM SHADOWGRAPH OPERATOR) HIV Antigen/Antibod y 1 & 2 Non-reacti ve Non-react jammie 05/01/2021 11:08 AM SHADOWGRAPH OPERATOR [facility] Comment:No Laboratory eviden ce of HIV infection. Blood BLOOD SPECIMEN / Unknown Lab Venipuncture / Unknown 05/01/2021 9:21 AM SHADOWGRAPH OPERATOR 05/01/2021 9:48 AM SHADOWGRAPH OPERATOR Alexandra Ramachandran MD LAB - CHEMISTRY ORDERABLES F inal Result Performing Organization Address [facility]/ZIP Co de Phone Number [address] [address], [place] [phone] * HEPATITIS C ANTIBODY (05/01/2021 9:21 AM SHADOWGRAPH OPERATOR) Hepatitis C Antibody Non-react jammie Non-reac tive 05/01/2021 11:08 AM SHADOWGRAPH OPERATOR [facility] Comment:Hepatitis C Antibody screen indicates no serologic evidence of past or current infection with Hepatitis C Virus. Patients with unexplained liver disease who are immunocompromised or suspected of having acute Hepatitis C infection may benefit from Nucleic Acid Test (ELMO) for Hepatitis C Viral RNA to confirm Hepatitis C status. Blood BLOOD SPECIMEN / Unknown Lab Venipuncture / Unknown 05/01/2021 9:21 AM SHADOWGRAPH OPERATOR 05/01/2021 9:48 AM SHADOWGRAPH OPERATOR us Alexandra Ramachandran MD LAB - CHEMISTRY ORDERABLES F inal Result [address] [address], [place] [phone] from Last 3 Months or Most Recently Relevant to Health Maintenance Insurance MEDICAID - [facility] MEDICARE MEDICARE MEDICAID - [place] Advance Directives * Full Code (Latest Code Status on File) Date Activated Date Inactivated Comments 01/14/2021 12:11 AM 01/19/2021 2:47 PM * Full Code Date Activated Date Inactivated Comments 06/28/2020 3:21 PM 07/02/2020 2:26 PM Care Teams Raking Machine Operator Relationship Specialty Start Date End Date Galen Hunter MD [address] [place] [address] PCP - General Internal Medicine 10/12/24
--- OUTSIDE RECORDS SUMMARY | 2024-11-17 11:35 | XMS_ITS | Encounter Summary ---
Author Organization [facility] Address [address] [place] [address] Care Team Providers Care Appliance Mechanic Name Role Phone Bernadette Robertson MD Primary Care Provider [phone] Bernadette Robertson MD Primary Care Provider [phone] Galen Hunter MD Primary Care Provider [phone] Encounter Details Date Type Department Care Team (Late st Contact [facility]) Description 03/01/2021 Telephone [facility] [address] [place] [address] Cr Titus MD [address] [phone] Social History Tobacco Use Types Packs/Day Years [...] on file 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
--- OUTSIDE RECORDS SUMMARY | 2024-11-17 11:35 | XMS_ITS | Clinical Summary ---
Author Organization [facility] Address [address] [place] [address] Care Team Providers Care Hand Miter Operator Name Role Phone None, Provider MD [...] complete this topic Insurance MEDICAID Care Teams Hand Miter Operator Relationship Specialty Start Date End Date None, Provider, PCP - General 01/11/21
--- OUTSIDE RECORDS SUMMARY | 2024-11-17 11:35 | XMS_ITS | Encounter Summary ---
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
--- OUTSIDE RECORDS SUMMARY | 2024-11-17 11:35 | XMS_ITS | Encounter Summary ---
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
--- OUTSIDE RECORDS SUMMARY | 2024-11-17 11:35 | XMS_ITS | Encounter Summary ---
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
--- OUTSIDE RECORDS SUMMARY | 2024-11-17 11:35 | XMS_ITS | Encounter Summary ---
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
--- OUTSIDE RECORDS SUMMARY | 2024-11-17 11:35 | XMS_ITS | Encounter Summary ---
Author Organization [facility] Address [address] [facility] [place] [address] Care Team Providers Care Gis Consultant Name Role Phone Bernadette Robertson MD Primary Care Provider [phone] Bernadette Robertson MD Primary Care Provider [phone] Galen Hunter MD Primary Care Provider [phone] Encounter Details Date Type Department Care Team (Late st Contact [facility]) Description 03/04/2021 Telephone [facility] Surgery [address] [place] [address] Cr Titus MD [address] [phone] Social History Tobacco Use Types Packs/Day Years [...] on file 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
[2024-11-17 12:21] LABS: Hematocrit 23.7 % (42.0-52.0); Hemoglobin 7.8 g/dL (14.0-18.0); Immature Granulocyte Percent A 0.8 % (0-0.5); Immature Platelet Fraction Pct 1.3 % (0.9-11.2); Lymphocytes Absolute Auto 0.71 K/mm3 (0.9-3.2); Mean Corpuscular HGB Conc 32.9 g/dl (32-36); Mean Corpuscular Hemoglobin 28.9 pg (26-34); Mean Corpuscular Volume 87.8 fl (80-100); Nucleated Red Blood Cells Absolute Auto 0.000 K/mm3 (0.0-0.012); Nucleated Red Blood Cells Perc 0.0 % (0.0-0.2); Platelet Count Result 104 k/mm3 (150-375); Red Blood Count 2.70 M/mm3 (4.6-6.20); White Blood Count 9.8 K/mm3 (4.5-10.0)
[2024-11-17 12:50] LABS: Alanine Aminotransferase 6 U/L (6-50); Albumin Level 4.0 g/dL (3.5-5.1); Alkaline Phosphatase 101 U/L (38-126); Anion Gap 12 mmol/L (4-12); Aspartate Amino Transferase 19 U/L (17-59); Bilirubin,Total 1.1 mg/dL (0.2-1.3); Blood Urea Nitrogen 18 mg/dL (9-20); Calcium 9.1 mg/dL (8.4-10.2); Carbon Dioxide 29 mmol/L (22-30); Chloride 97 mmol/L (98-107); Estimated CRCL calculation 16 ml/min; Estimated Glomerular Filt Rate 16; Glucose 97 mg/dL (65-110); Potassium 3.8 mmol/L (3.4-5.0); Sodium 138 mmol/L (137-145); Total Protein 6.9 g/dL (6.3-8.2)
[2024-11-17 12:56] LABS: NT Pro B Type Natriuretic Pept > 30000 pg/mL (19.9-100)
--- NOTE | 2024-11-17 13:09 | ED_ITS ---
HPI - General Adult General Chief complaint: Recheck/Abnormal Lab/Rx Stated complaint: ABNORMAL CXR HERE FOR CT SCAN Time Seen by Provider: 11/17/24 11:17 History of Present Illness HPI narrative: Patient is a 34-year-old male who presents ER after having an abnormal chest CT at an urgent care. Reports cough for about 4 days. No fevers or chills. No exertional dyspnea. Has history of end-stage renal disease. He gets dialysis on Thursday//Thursday. He has not missed the treatment. Cough is nonproductive. He is told he may have pneumonia or pleural effusion and she get a CT scan for better interpretation. Related Data Home Medications ?Medication ?Instructions ?Recorded ?Confirmed ?Last Taken ?Type acetaminophen 500 mg tablet 500 mg PO Q6H PRN Pain 10/16/22 09/23/24 Unknown History calcitriol 0.5 mcg capsule 0.5 mcg PO 3XW 10/16/22 09/23/24 Unknown History carvedilol 25 mg tablet 25 mg PO BID 10/16/22 09/23/24 Unknown History epoetin beta, methoxy peg 100 100 mcg subcut .2 times a month 10/16/22 09/23/24 Unknown History mcg/0.3 mL injection syringe (Mircera) heparin (porcine) 1,000 unit/mL 600 unit IV .every dialysis 10/16/22 09/23/24 Unknown History injection solution heparin (porcine) 5,000 unit/mL 1,600 unit IV .every dialysis 10/16/22 09/23/24 Unknown History injection solution iron sucrose 50 mg iron/2.5 mL 50 mg IV WEEKLY 10/16/22 09/23/24 Unknown History intravenous solution (Venofer) mirtazapine 30 mg tablet 30 mg PO QHS 10/16/22 09/23/24 Unknown History ondansetron HCl 4 mg tablet 4 mg PO Q4H PRN Nausea 10/16/22 09/23/24 Unknown History polyethylene glycol 3350 17 17 g PO DAILY PRN Nausea 10/16/22 09/23/24 Unknown History gram/dose oral powder sertraline 100 mg tablet 100 mg PO DAILY 10/16/22 09/23/24 Unknown History sodium zirconium cyclosilicate 10 10 g PO DAILY 10/16/22 09/23/24 Unknown History gram oral powder packet (Lokelma) sucroferric oxyhydroxide 500 mg 1,000 mg PO TID 10/16/22 09/23/24 Unknown History chewable tablet (Velphoro) trazodone 50 mg tablet 50 mg PO HS 02/14/24 09/23/24 Unknown History melatonin 5 mg capsule 5 mg PO QHS PRN 09/23/24 09/23/24 Unknown History Allergies Allergy/AdvReac Type Severity Reaction Status Date / Time No Known Allergies Allergy Verified 11/17/24 11:12 Review of Systems 2 Review of Systems: All systems reviewed & are unremarkable except as noted in HPI and below Constitutional: Constitutional: Reports no additional constitutional complaints ENT: Reports system reviewed and no additional complaints, except as documented Cardiovascular: Cardiovascular: Reports no additional cardiovascular complaints Respiratory: Respiratory: Reports no additional respiratory complaints Musculoskeletal: Musculoskeletal: Reports no additional musculoskeletal complaints [facility] Past Medical History Medical History (Updated 11/17/24 @ 17:56 by Roberto Last MD) Ankle fracture, right HTN (hypertension) Depression Bruna syndrome Kidney failure Surgical History Surgical History History of hand surgery (~1990) History of open heart surgery Repair of a hole in his heart History of open reduction and internal fixation (ORIF) procedure Right ankle S/P dialysis catheter insertion History of kidney surgery Kidney biopsy Family History Family History Father No problems noted. Mother No problems noted. Social History Social History Social History: 1 CUP OF CAFFEINE PER DAY Smoking packs per day: 1 Smoking cigarettes per day: 20.0 Years smoked: 10 Smoking pack-years: 10.00 Smoking status: Former smoker Alcohol intake: current Alcohol use details: Drinks once monthly Substance use: current Substance use type: marijuana Other substance usage details: use marijuana three times per week Lack of Transportation: No Lack of Food: Never True Current Housing: I Have Housing Concerned About Future Housing: No Difficulty Paying Gas/Electric Bills: No Difficulty Paying for Meds: No Currently Unemployed: No Education: High School Diploma/GED Difficulty w/ Childcare or Family Care: No Exam 2 Narrative: GENERAL: Well-appearing, well-nourished, and in no acute distress. HEAD: Normocephalic, atraumatic. ENT: Mucous membranes moist. CHEST: Pain crackles left base, otherwise clear to auscultation. No respiratory distress. HEART: Regular rate and rhythm. Normal peripheral pulses. ABDOMEN: Soft, nontender, nondistended. EXTREMITIES: Normal range of motion. No edema. SKIN: Warm, dry, no rash. NEURO: Alert and oriented x3. PSYCH: Normal mood and affect. Course Course Emergency Course: Discussed case with Cardiothoracic surgery at [facility] Dr. Martin. Recommend medical management with IV antibiotics is this is likely infectious. He is review in x- ray from earlier in the week. Patient accepted to [facility] by hospitalist Dr. Smith. Patient started on ceftriaxone azithromycin. Vital Signs Vital signs: Vital Signs Temperature 97.3 F L 11/17/24 11:08 Pulse Rate 78 11/17/24 11:08 Respiratory Rate 18 11/17/24 11:08 Blood Pressure 139/85 11/17/24 11:08 Pulse Oximetry 100 11/17/24 11:08 Temperature 98.0 F 11/17/24 17:08 Pulse Rate 71 11/17/24 17:08 Respiratory Rate 20 11/17/24 17:08 Blood Pressure 137/101 H 11/17/24 17:08 Pulse Oximetry 96 11/17/24 17:08 Medical Decision Making Vital Signs Vital Signs: Vital Signs Temperature 97.3 F L 11/17/24 11:08 Pulse Rate 78 11/17/24 11:08 Respiratory Rate 18 11/17/24 11:08 Blood Pressure 139/85 11/17/24 11:08 Pulse Oximetry 100 11/17/24 11:08 Temperature 98.0 F 11/17/24 17:08 Pulse Rate 71 11/17/24 17:08 Respiratory Rate 20 11/17/24 17:08 Blood Pressure 137/101 H 11/17/24 17:08 Pulse Oximetry 96 11/17/24 17:08 Lab Data 11/17/24 12:14 11/17/24 12:14 Labs: Lab Results 11/17/24 Range/Units 12:14 WBC 9.8 (4.5-10.0) K/mm3 RBC 2.70 L (4.6-6.20) M/mm3 Hgb 7.8 L D (14.0-18.0) g/dL Hct 23.7 L (42.0-52.0) % MCV 87.8 (80-100) fl MCH 28.9 (26-34) pg MCHC 32.9 (32-36) g/dl RDW 15.7 H (11.5-14.5) % Plt Count 104 L (150-375) k/mm3 MPV 8.5 (7.4-10.4) fl Immature Gran % (Auto) 0.8 H (0-0.5) % Neut % (Auto) 78.8 H (45.5-73.1) % Lymph % (Auto) 7.2 L (18.3-44.2) % [place] % (Auto) 10.7 H (2.6-8.5) % Eos % (Auto) 2.2 (0-4.4) % Baso % (Auto) 0.3 (0.2-1.2) % Lymph # (Auto) 0.71 L (0.9-3.2) K/mm3 [place] # (Auto) 1.1 H (0.1-0.6) K/mm3 Eos # (Auto) 0.2 (0-0.3) K/mm3 Baso # (Auto) 0.0 (0.0-0.1) K/mm3 Abs Immat Gran (auto) 0.08 H (0.00-0.031) K/mm3 Absolute Neuts (auto) 7.7 H (1.3-6.7) K/mm3 Absolute Nucleated RBC 0.000 (0.0-0.012) K/mm3 Nucleated RBC % 0.0 (0.0-0.2) % % Immature Plt Fraction 1.3 (0.9-11.2) % Sodium 138 (137-145) mmol/L Potassium 3.8 (3.4-5.0) mmol/L Chloride 97 L (98-107) mmol/L Carbon Dioxide 29 (22-30) mmol/L Anion Gap 12 (4-12) mmol/L BUN 18 D (9-20) mg/dL Creatinine 4.34 H (0.7-1.3) mg/dL Estim Creat Clear Calc 16 ml/min Estimated GFR 16 L (59 - ) Glucose 97 (65-110) mg/dL Calcium 9.1 (8.4-10.2) mg/dL Total Bilirubin 1.1 (0.2-1.3) mg/dL AST 19 (17-59) U/L ALT 6 (6-50) U/L Alkaline Phosphatase 101 (38-126) U/L NT-Pro-B Natriuret Pep > 15080 H (19.9-100) pg/mL Total Protein 6.9 (6.3-8.2) g/dL Albumin 4.0 (3.5-5.1) g/dL Imaging Data Radiologist's impression: ITS Impressions Chest CT 11/17/24 12:19 IMPRESSION: Cavitary mass within the left hemithorax with left axillary (and likely mediastinal and hilar) lymphadenopathy compressing the left inferior lobar bronchus leading to adjacent compressive atelectasis. Etiology of the cavitary mass includes cancer (most frequently squamous cell carcinoma), bacterial (such as primary TB) or fungal infections, a pneumatocele (with a history of trauma) or vascular in etiology, less likely. Discharge Plan Discharge Clinical Impression: Cavitating mass in left lower lung lobe, Pneumonia Patient Disposition: Acute Care Hospital Condition: Stable Patient Language: Turkmen Prescriptions: No Action trazodone 50 mg tablet 50 mg PO HS carvedilol 25 mg tablet 25 mg PO BID Rx Instructions: must administer with a meal/food sertraline 100 mg tablet 100 mg PO DAILY Velphoro 500 mg tablet,chewable 1,000 mg PO TID acetaminophen 500 mg tablet 500 mg PO Q6H PRN (Reason: Pain) ondansetron HCl 4 mg tablet 4 mg PO Q4H PRN (Reason: Nausea) polyethylene glycol 3350 17 gram/dose powder 17 g PO DAILY PRN (Reason: Nausea) calcitriol 0.5 mcg capsule 0.5 mcg PO 3XW Rx Instructions: administer after dialysis on dialysis days Lokelma 10 gram powder in packet 10 g PO DAILY mirtazapine 30 mg tablet 30 mg PO QHS Venofer 50 mg iron/2.5 mL solution 50 mg IV WEEKLY Rx Instructions: administer over 2-5 mins Mircera 100 mcg/0.3 mL syringe 100 mcg subcut .2 times a month heparin (porcine) 5,000 unit/mL solution 1,600 unit IV .every dialysis heparin (porcine) 1,000 unit/mL solution 600 unit IV .every dialysis minoxidil 2.5 mg tablet 7.5 mg PO BID Qty: 180 3RF melatonin 5 mg capsule 5 mg PO QHS PRN Follow-up/Referrals: Galen Hunter MD [Primary Care Provider] -
[2024-11-17 15:35] VITALS: BP 160/104; PULSE 73; RESP 20; O2SAT 98
[2024-11-17] MEDS: AZITHROMYCIN IV 500 MG in SODIUM CHLORIDE 0.9% IV 250 ML IVPB (15:48)
[2024-11-17] MEDS: cefTRIAXone 1 GM in SODIUM CHLORIDE 0.9% IV 50 ML 100 ML IVPB (15:48)
--- NOTE | 2024-11-17 16:00 | PC.NURSE ---
Access line provided with triage information. All questions answer. To call us with a bed when available.
[2024-11-17 17:08] VITALS: BP 137/101; PULSE 71; RESP 20; TEMP 36.7; O2SAT 96
[2024-11-18] VITALS (7 sets, daily range): BP systolic 160–209; BP diastolic 95–125; PULSE 70–80; RESP 16–18; O2SAT 99
[2024-11-18] MEDS: MELATONIN 5 MG TABLET PO (01:12)
[2024-11-18] MEDS: MIRTAZAPINE 30 MG TABLET PO (01:13)
[2024-11-18 08:26] LABS: Influenza A QL RT-PCR Negative (Negative); Influenza B QL RT-PCR Negative (Negative); RSV RNA, RT-PCR Negative (Negative); SARS-CoV-2 RNA PCR Negative (Negative)
== END 2024-11-18 10:20 | disposition short-term general hospital (02) ==
PROVIDERS: Emergency Medicine; Emergency Provider Emergency Medicine; PCP Emergency Medicine
DX: R91.8 Other nonspecific abnormal finding of lung field (principal); J18.9 Pneumonia, unspecified organism; Z20.822 Contact with and (suspected) exposure to COVID-19; I12.0 Hypertensive chronic kidney disease with stage 5 chronic kidney disease or end stage renal disease; N18.6 End stage renal disease; Z99.2 Dependence on renal dialysis; Q79.8 Other congenital malformations of musculoskeletal system; Z87.891 Personal history of nicotine dependence; Z79.899 Other long term (current) drug therapy
CPT/HCPCS: 36415; 71045; 71250; 80053; 83880; 85025; 85055; 87040; 87637; 96365; 96366; 96367; 96375; 99285; A9270; J0360; J0456; J0696; J7050